=== PATIENT | male | born 1940 | race Caucasian/White ===

== ENCOUNTER → 2022-07-23 13:40 | Outpatient (CLI) | payer MEDICARE, BC, SELFPAY ==
--- NOTE | ~2022-07-23 | XR_ITS ---
XR hip RT min 2V DATE: 07/23/2022 13:55 INDICATION: Right hip pain. No injury. TECHNIQUE: AP and lateral views COMPARISON: None FINDINGS: Severe degenerative disc disease in the lower lumbar and lumbosacral region. Degenerative spurring of the pubic symphysis. The sacroiliac joints are intact. Mild bilateral hip osteoarthritis. No fracture or dislocation, avascular necrosis or bone destruction of the right hip. [employer] devices overlie the base of the penis IMPRESSION: Mild bilateral hip osteoid arthritis Severe degenerative disc disease of the lower lumbar and lumbosacral area Reviewed, dictated and finalized at location A. ENGINEER
== END ==
PROVIDERS: PCP Family Medicine; Visit Provider Family Medicine
DX: C79.51 Secondary malignant neoplasm of bone (principal); C64.9 Malignant neoplasm of unspecified kidney, except renal pelvis; M25.551 Pain in right hip; M16.0 Bilateral primary osteoarthritis of hip; M51.37 Other intervertebral disc degeneration, lumbosacral region
CPT/HCPCS: 73502

== ENCOUNTER 2024-01-05 09:21 | Outpatient (CLI) | payer MEDICARE, BC, SELFPAY ==
--- NOTE | ~2024-01-05 | US_ITS ---
EXAMINATION: US soft tissue groin LT DATE: 01/05/2024 09:43 INDICATION: Left lower quadrant abdominal pain and lump TECHNIQUE: Multiple grayscale and Doppler ultrasound images of the left lower quadrant region of conc alejandra were obtained. COMPARISON: None FINDINGS: Normal appearance to the subcutaneous fat with intact underlying abdominal wall musculature of the re gion of concern. No hernia, abnormal masses or fluid collections identified. IMPRESSION: 1. Normal study. No hernia or other abnormal masses or fluid collections identified at the region of concern. Per notation of the deputy program manager, the patient was unable to identify the pump and the pain quezada d resolved at the time of imaging. Reviewed, dictated and finalized at location B. IMPRESSION: 1. Normal study. No hernia or other abnormal masses or fluid collections identi fied at the region of concern. Per notation of the deputy program manager, the patient was unable to identify the pump and the pain had resolved at the time of imaging.
== END 2024-01-05 09:22 | disposition home or self-care (01) ==
LOC: ANHIMG 09:22
PROVIDERS: PCP Family Medicine; Visit Provider Family Medicine
DX: R10.32 Left lower quadrant pain (principal); R22.2 Localized swelling, mass and lump, trunk
CPT/HCPCS: 76882

== ENCOUNTER 2024-01-14 11:06 | Outpatient (CLI) | payer MEDICARE, BC, SELFPAY ==
--- NOTE | ~2024-01-14 | MMUS_ITS ---
EXAMINATION: MM diagnostic sam BI w neela, US breast BI complete HISTORY: Palpable breast abnormality. TECHNIQUE: Additional 3-D tomosynthesis images of the breasts were performed and synthetic 2-D images were generated. CAD analysis was submitted and interpreted. High resolution complete bilateral breas t ultrasound was performed. COMPARISON: None BREAST PARENCHYMAL COMPOSITION: Dense: The breasts are heterogeneously dense, which may obscure small masses FINDINGS: MAMMOGRAPHIC FINDINGS: There are no suspicious masses, calcifications or clustered calcifications in either breast to sugges t malignancy. There are scattered benign bilateral breast calcifications. There is bilateral symmetri c gynecomastia. ULTRASOUND: Complete bilateral US of all 4 quadrants of the breasts and retroareolar region was reviewed. Normal heterogeneous echotexture without focal solid or cystic mass. IMPRESSION: 1. No evidence for malignancy in either breast. Benign bilateral gynecomastia. 2. Routine yearly screening mammogram and regular clinical breast examination are recommended. BI-RADS Category 1: Negative Reviewed, dictated and finalized at location A. IMPRESSION: 1. No evidence for malignancy in either breast. Benign bilateral gynecomastia. 2. Routine yearly screening mammogram and regular clinical breast examination a re recommended. BI-RADS Category 1: Negative
== END 2024-01-14 11:07 | disposition home or self-care (01) ==
PROVIDERS: PCP Family Medicine; Visit Provider Family Medicine
DX: N62 Hypertrophy of breast (principal)
CPT/HCPCS: 76641; 77062; 77066; G0279

== ENCOUNTER 2024-01-30 09:31 | Outpatient (CLI) | payer MEDICARE, BC, SELFPAY ==
--- NOTE | ~2024-01-30 | US_ITS ---
US abdomen complete EXAMINATION: US Abdomen Complete INDICATION: Ascites PROCEDURE: Realtime High Resolution abdomen ultrasound. COMPARISON: No prior studies for comparison FINDINGS: There are multiple gallbladder polyps measuring up to 3 mm. Gallbladder wall is thickened m easuring 4 mm. Common bile duct measures 3 mm. Liver echotexture is normal without focal mass. There is a nodular liver surface, consistent with cir rhosis. There is ascites. There is hepatofugal flow in the portal vein, consistent with portal hypert ension. There is hepatomegaly.. Pancreas within normal limits. Pancreatic tail is obscured by bowel gas. Spleen is unremarkeable. Kidneys are atrophic with increased echogenicity. There is right era l cyst measuring 2 cm. Visualized aspects of the aorta and IVC are within normal limits. Portal vein is patent. No sonograph ic Villanueva's sign indicated by the technologist. There are small pleural effusions. IMPRESSION: 1: Cirrhosis of the liver with portal hypertension and ascites. 2: Small pleural effusions. Reviewed, dictated and finalized at location B.
== END 2024-01-30 09:32 | disposition home or self-care (01) ==
PROVIDERS: PCP Family Medicine; Visit Provider Family Medicine
DX: R18.8 Other ascites (principal); J90 Pleural effusion, not elsewhere classified
CPT/HCPCS: 76700

== ENCOUNTER 2024-01-30 13:53 | Inpatient (IN) | payer MEDICARE, BC, SELFPAY ==
[2024-01-30] VITALS (15 sets, daily range): BP systolic 87–116; BP diastolic 58–78; PULSE 89–111; RESP 13–28; TEMP 37.1–37.6; O2SAT 92–100; BMI 32.1
--- NOTE | ~2024-01-30 | XR_ITS ---
EXAMINATION: XR chest 1V portable DATE: 02/05/2024 10:43 INDICATION: Worsening shortness of breath and cough 1 day post thoracentesis TECHNIQUE: frontal view of the chest was obtained. COMPARISON: Chest radiograph dated 02/04/2024 FINDINGS: Right lung is clear. Curvilinear skinfold projects over the lateral left mid to lower lung. Less dens e airspace opacity in the left midlung zone and new patchy airspace opacities in the left lower lung zone. Blunting at the left costophrenic angle consistent with likely recurrent small left pleural eff usion. No pneumothorax or right-sided pleural effusion. Cardiomegaly. Tortuous atherosclerotic aorta. IMPRESSION: 1. New opacities in the left lower lung zone consistent with likely recanalization of a small left pl eural effusion with associated atelectasis and/or pneumonia. 2. Improvement in interstitial opacities in the lateral left midlung zone also consistent with atelec tasis or pneumonia. When 3. Cardiomegaly. Reviewed, dictated and finalized at location A. IMPRESSION: 1. New opacities in the left lower lung zone consistent with likely recanalizat ion of a small left pleural effusion with associated atelectasis and/or pneumon ia. 2. Improvement in interstitial opacities in the lateral left midlung zone also consistent with atelectasis or pneumonia. When 3. Cardiomegaly.
--- NOTE | ~2024-01-30 | XR_ITS ---
EXAMINATION: [id number] DATE: 02/04/2024 12:16 INDICATION: Status post left thoracentesis TECHNIQUE: AP and lateral views of the chest were obtained. COMPARISON: Chest radiograph and CT dated 01/30/2024 FINDINGS: Near complete resolution of the prior small left pleural effusion with improved aeration at the left lower lung zone. Blunting at the bilateral posterior sulci but not the costophrenic angles consistent with tiny bilateral pleural effusions. There are persistent airspace opacities along the lateral lef t mid and upper lung zone with appearance on CT favoring pneumonia. Borderline heart size accounting for AP technique. Corner artery calcification is. Moderate thoracic spondylosis. IMPRESSION: 1. Tiny bilateral pleural effusions significantly decrease in the left post thoracentesis with no pne umothorax. 2. Airspace opacities at the lateral left mid to upper lung consistent with left upper lobe pneumonia . Reviewed, dictated and finalized at location A. IMPRESSION: 1. Tiny bilateral pleural effusions significantly decrease in the left post tho racentesis with no pneumothorax. 2. Airspace opacities at the lateral left mid to upper lung consistent with lef t upper lobe pneumonia.
--- NOTE | ~2024-01-30 | XR_ITS ---
XR chest 2V 01/30/2024 14:36 Indication: Shortness of breath and weakness Procedure: 2 view chest Comparison: No prior studies for comparison. Findings: Cardiomegaly with pulmonary edema. Small pleural effusions. Atherosclerosis. No acute osseo us abnormality. Impression: 1: Cardiomegaly with pulmonary edema. Reviewed, dictated and finalized at location B. Impression: 1: Cardiomegaly with pulmonary edema.
--- NOTE | ~2024-01-30 | XR_ITS ---
XR chest 1V portable DATE: 02/06/2024 08:10 INDICATION: Cough, shortness of breath TECHNIQUE: Portable upright AP views on 02/06/2024 at 0805 at 0806 hours COMPARISON: 02/05/2024 portable AP chest FINDINGS: There is increased prominent patchy consolidation of much of the left lung, relatively spar ing the apex. Cardiomegaly. Prominent thoracic aortic calcification. There is pulmonary vascular redistribution suggesting pulmonary venous hypertension. The left costophrenic angle is not well-defined. Small left pleural effusion is not excluded. No evidence of pneumothorax. IMPRESSION: Extensive patchy consolidation of the left lung, relatively sparring only the apex. Pneum onia is suspected Cardiomegaly, pulmonary vascular redistribution consistent with mild congestive heart failure Reviewed, dictated and finalized at location A. IMPRESSION: Extensive patchy consolidation of the left lung, relatively sparrin g only the apex. Pneumonia is suspected Cardiomegaly, pulmonary vascular redistribution consistent with mild congestive heart failure
--- NOTE | ~2024-01-30 | US_ITS ---
EXAMINATION: US paracentesis abd w/image DATE: 02/01/2024 17:13 INDICATION: Ascites. TECHNIQUE: The procedure and its risks and benefits were discussed with the patient. Potential risks discussed included bleeding and infection. The skin was prepped and draped in sterile fashion. 1% lid ocaine was used for local anesthesia. Under ultrasound guidance, a 5 Fr catheter with trochar was adv anced into the ascites in the left lower quadrant. Fluid was aspirated into vacuum bottles. The cole ter was removed, and a dressing was applied. There were no immediate complications. FINDINGS: Ultrasound images demonstrate ascites and the catheter within the fluid. IMPRESSION: 1. Successful ultrasound-guided paracentesis yielding 5000 mL of brown-colored fluid. Reviewed, dictated and finalized at location A.
--- NOTE | ~2024-01-30 | US_ITS ---
EXAMINATION: US thoracentesis DATE: 02/04/2024 12:25 INDICATION: Left pleural effusion TECHNIQUE: The procedure and its risks and benefits were discussed with the patient. Potential risks discussed included bleeding, infection, and pneumothorax. The patient understood the risks and agreed to proceed. The skin was prepped and draped in sterile fashion. 1% lidocaine was used for local anes thesia. Under ultrasound guidance, a 5 Fr catheter with trochar was advanced into the left pleural ef fusion. Fluid was aspirated. The catheter was removed, and a dressing was applied. There were no imme diate complications. FINDINGS: Ultrasound images demonstrate a small left pleural effusion and the catheter within the fluid. IMPRESSION: 1. Successful ultrasound-guided thoracentesis yielding 1000 mL of brownish colored fluid. Reviewed, dictated and finalized at location A. IMPRESSION: 1. Successful ultrasound-guided thoracentesis yielding 1000 mL of brownish col ored fluid.
--- NOTE | ~2024-01-30 | CT_ITS ---
EXAMINATION: CTA chest PE protocol DATE: 01/30/2024 15:47 CDT INDICATION: Pulmonary embolism TECHNIQUE: Computed tomographic angiography (CTA) of the chest was performed with 100 mL Omnipaque-35 0 intravenous contrast. The dose-length product was 880.57 mGy-cm. Maximum intensity projection 3D-re constructions of the aorta and other arteries were constructed by the technologist on a separate work station. Automated exposure control and iterative reconstruction technique were employed. COMPARISON: None. FINDINGS: Study limited for evaluation of the lower lobe and upper lobe segmental and subsegmental pu lmonary arteries due to motion. No large central pulmonary embolism. Pulmonary arteries are enlarged. Small pleural effusions. There is thoracic lymphadenopathy. There is gynecomastia. There is atherosc lerosis of the aorta and coronary arteries. There is ascites. There is cirrhosis of the liver. There is focal consolidation of the left upper lobe, suspicious for pneumonia. IMPRESSION: 1. No large central pulmonary embolism. 2: Focal left upper lobe consolidation, suspicious for pneumonia. 3: Mediastinal lymphadenopathy, likely reactive. 4: Small pleural effusions. 5: Cirrhosis of the liver with ascites. 6: Enlarged pulmonary arteries consistent with pulmonary hypertension. 7: Gynecomastia. Reviewed, dictated and finalized at location B.
--- NOTE | ~2024-01-30 | XR_ITS ---
Portable chest x-ray Comparison: 01/30/2024 Clinical History: Shortness of breath Findings: Moderate left pleural effusion present with left lower lobe atelectasis. There is extensiv e haziness in left upper lobe region, which could reflect pulmonary edema versus pneumonia. Minimal r ight basilar haziness again present. Cardiomediastinal silhouette is stable. Bones and soft tissues are unremarkable. Impression: Moderate left pleural effusion and left lower lobe atelectasis. Worsening pulmonary edema versus pneumonia in the aerated left upper lobe. Stable minimal haziness right lung base, nonspecific. Reviewed, dictated and finalized at location M. Impression: Moderate left pleural effusion and left lower lobe atelectasis. Worsening pulmonary edema versus pneumonia in the aerated left upper lobe. Stable minimal haziness right lung base, nonspecific.
--- NOTE | 2024-01-30 14:01 | ECG_ITS ---
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 Measurements Intervals [place] Rate: 104 P: 0 NV: 0 QRS: -15 QRSD: 154 T: -15 QT: 324 QTc: 428 Interpretive Statements ATRIAL FIBRILLATION WITH RAPID VENTRICULAR RESPONSE INDETERMINATE AXIS RIGHT BUNDLE BRANCH BLOCK [120+ ms QRS DURATION, UPRIGHT V1, 40+ ms S IN I/aVL/V4/V5/V6] ABNORMAL ECG No previous ECG available for comparison Electronically Signed On 01-31-2024 07:44:38 CDT by Joey Ladd M.D.
--- NOTE | 2024-01-30 14:05 | ED.WEAKNESS ---
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 Patient notes that over the last few weeks he has had worsening abdominal distension, fatigue, lower extremity weakness and shortness of breath. He notes that the shortness of breath seemed to worsen over the last week. He does endorse a cough which is intermittently productive of a green colored sputum. He denies any fever chills. He has made it to his dialysis appointments this week, does not notice if his breathing improves after dialysis runs. He had a full complete run yesterday which was uneventful. His primary doctor did see him a couple of weeks ago for his abdominal distention, ordered an outpatient ultrasound. He was unable to get it performed until this morning. He denies fever or chills. Denies experiencing any chest pain over the last few weeks. He believes he has had mild increase in swelling in his lower extremities. No calf pain. No known sick contacts. Related Data Home Medications Medication Instructions Recorded Confirmed aspirin 81 mg tablet,delayed 81 mg PO DAILY 11/26/20 01/30/24 release fluticasone furoate 27.5 1 spray intranasal DAILY PRN 11/26/20 01/30/24 mcg/actuation nasal Congestion spray,suspension glucosamine HCl 1,500 mg tablet 1,500 mg PO DAILY 11/26/20 01/30/24 nitroglycerin 0.4 mg sublingual 0.4 mg sublingual Q5M PRN Chest 11/26/20 01/30/24 tablet Pain olopatadine 0.2 % eye drops 1 drp EACH EYE DAILY PRN itchy eyes 11/26/20 01/30/24 (Pataday Once Daily Relief) apixaban 5 mg tablet 2.5 mg PO BID 01/30/24 01/30/24 metoprolol tartrate 25 mg tablet 12.5 mg PO BID 01/30/24 01/30/24 midodrine 10 mg tablet 10 mg PO TID 01/30/24 01/30/24 sevelamer carbonate 800 mg tablet 1,600 mg PO TIDWM 01/30/24 01/30/24 Allergies Allergy/AdvReac Type Severity Reaction Status Date / Time No Known Allergies Allergy Verified 01/30/24 19:55 Review of Systems Review of Systems: All systems reviewed & are unremarkable except as noted in HPI and below PMFSH Past Medical History Medical History (Updated 01/30/24 @ 20:09 by Haylee Jolley MD) CAD in [place] artery Chronic kidney disease, stage 4 (severe) CKD (chronic kidney disease) stage 3, GFR 30-59 ml/min Controlled diabetes mellitus Dialysis patient ESRD (end stage renal disease) HLD (hyperlipidemia) Hy ht/kd 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 Idiopathic peripheral neuropathy Renal cell carcinoma s/p nephrectomy Retinal detachment Type 2 diabetes mellitus without complication, with long-term current use of insulin Surgical History Surgical History History of left nephrectomy Social History Social History Smoking status: Never smoker Second hand tobacco smoke exposure: No Alcohol intake: never Substance use: never Substance use type: does not use Do You Feel Safe in your Home?: Yes Lack of Transportation: No Lack of Food: Never True Current Housing: I Have Housing Concerned About Future Housing: No Difficulty Paying Gas/Electric Bills: No Difficulty Paying for Meds: No Currently Unemployed: No Education: Decline to Answer Difficulty w/ Childcare or Family Care: No Living arrangements: alone Occupation/Education: retired Gender identity (if verbalized by the patient): Male Sexual Orientation (if Verbalized by the Patient): Straight or Heterosexual Spiritual care concerns: No Exam Narrative: GENERAL: Well-appearing, well-nourished, and in no acute distress. HEAD: Normocephalic, atraumatic. EYES: PERRLA and EOMI. ENT: Nares clear. Mucous membranes moist. NECK: Supple. CHEST: Coarse bilateral breath
[2024-01-30 14:15] LABS: Basophils Percent Auto 0.3 % (0.2-1.2); Hematocrit 38.1 % (42.0-52.0); Hemoglobin 12.7 g/dL (14.0-18.0); Immature Granulocyte Absolute 0.03 K/mm3 (0.00-0.031); Immature Granulocyte Percent A 0.4 % (0-0.5); Lymphocytes Absolute Auto 0.57 K/mm3 (0.9-3.2); Lymphocytes Percent Auto 7.4 % (18.3-44.2); Mean Corpuscular HGB Conc 33.3 g/dl (32-36); Mean Corpuscular Hemoglobin 35.4 pg (26-34); Mean Corpuscular Volume 106.1 fl (80-100); Mean Platelet Volume 9.2 fl (7.4-10.4); Monocytes Absolute Auto 1.3 K/mm3 (0.1-0.6); Monocytes Percent Auto 16.6 % (2.6-8.5); Neutrophils Absolute Auto 5.8 K/mm3 (1.3-6.7); Neutrophils Percent Auto 75.3 % (45.5-73.1); Platelet Count Result 158 k/mm3 (150-375); Red Blood Count 3.59 M/mm3 (4.6-6.20); Red Cell Distribution Width 15.7 % (11.5-14.5); White Blood Count 7.7 K/mm3 (4.5-10.0)
[2024-01-30 14:29] LABS: Alanine Aminotransferase 16 U/L (6-50); Albumin Level 4.4 g/dL (3.5-5.1); Alkaline Phosphatase 349 U/L (38-126); Anion Gap 10 mmol/L (4-12); Aspartate Amino Transferase 26 U/L (17-59); Blood Urea Nitrogen 34 mg/dL (9-20); Calcium 9.3 mg/dL (8.4-10.2); Carbon Dioxide 35 mmol/L (22-30); Chloride 93 mmol/L (98-107); Estimated CRCL calculation 12 ml/min; Estimated Glomerular Filt Rate 9; Glucose 135 mg/dL (65-110); Potassium 4.1 mmol/L (3.4-5.0); Sodium 138 mmol/L (137-145)
[2024-01-30 14:32] LABS: Macrocytosis 1+ (NORMAL); Platelet Estimate Adequate (Adequate); Schistocytes None Seen
[2024-01-30 14:33] LABS: Anisocytosis 1+
[2024-01-30 15:11] LABS: Influenza A QL RT-PCR Negative (Negative); Influenza B QL RT-PCR Negative (Negative); RSV RNA, RT-PCR Negative (Negative); SARS-CoV-2 RNA PCR Negative (Negative)
[2024-01-30 15:15] LABS: Lipase 243 U/L (23-300)
[2024-01-30] MEDS: FUROSEMIDE INJ 40 MG/4 ML VIAL IV PUSH (15:21)
--- NOTE | 2024-01-30 17:06 | PC.NURSE ---
Phlebotomy called to obtain second set of blood cultures and lab work.
[2024-01-30] MEDS: CEFEPIME 2 GM/NS 50 ML 2 GM/50 ML BAG IVPB (17:29)
[2024-01-30 17:38] LABS: Lactic Acid Reflex 2.1 mmol/L (0.7-2.0)
[2024-01-30] MEDS: AZITHROMYCIN 500 MG/NS 250 ML 500 MG/250 ML BAG 250 MG IVPB (17:51)
[2024-01-30 18:15] LABS: MRSA (PCR) NOT DETECTED (NOT DETECTE)
--- NOTE | 2024-01-30 18:23 | PM.IMHP ---
H&P: HPI History of Present Illness Date/Time: 01/30/24 18:23 Chief Complaint: SOB, Weakness, Fall Narrative: 83 y/o M presents here with shortness of breath, generalized weakness, and ground-level fall with PMH of renal cell carcinoma (s/p left nephrectomy), AFib, CAD, ESRD on HD (MWF), and HLD. The patient presents here for further evaluation of shortness of breath, generalized weakness, fatigue, and worsening abdominal distension over the past 6 months. However, the shortness of breath has significantly worsened over the last week and accompanied by a intermittently productive cough yielding green sputum. No associated fever chills, body aches. He reports the abdominal distention started over the winter and has been slowly progressing. Now accompanied by early satiety. Patient has history of ESRD and is on hemodialysis, appointments on Thursday, Thursday, and Thursday. Reports no missed treatment, last treatment yesterday (01/28). Shortness of breath not relieved with dialysis. Currently denying chest pain, nausea, vomiting, diarrhea, diaphoresis, syncope, or presyncope sensation. Emergency department he was tachycardic and tachypneic without hypoxia. Has known AFib, EKG confirmed same. Initial VS at presentation: 98.8? F, 818, RR 25, 116/73, and 100% on RA. ED workup showed: No leukocytosis, hemoglobin 12.7, creatinine 6.0 and GFR 9, 25, lactic 2.1, total bilirubin 3.0, AST/ALT WNL, initial troponin 1.040, and viral PCR negative. EKG showed AFib with RVR, rate 104, right branch block. Cardiomegaly with pulmonary edema. Abdominal ultrasound showed cirrhosis of the liver with portal hypertension disease and small pleural effusions. Chest CTA showed multiple findings, most notably a focal left upper lobe palatine suspicious for pneumonia. Review of Systems Review of Systems: All systems reviewed & are unremarkable except as noted in HPI and below FOR[facility]LY [facility] Past Medical History Medical History (Updated 01/30/24 @ 20:42 by Mia Izaguirre, VANE) CAD in [place] artery Chronic kidney disease, stage 4 (severe) CKD (chronic kidney disease) stage 3, GFR 30-59 ml/min Dialysis patient ESRD (end stage renal disease) HLD (hyperlipidemia) Hy ht/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t use Do You Feel Safe in your Home?: Yes Lack of Transportation: No Lack of Food: Never True Current Housing: I Have Housing Concerned About Future Housing: No Difficulty Paying Gas/Electric Bills: No Difficulty Paying for Meds: No Currently Unemployed: No Education: Decline to Answer Difficulty w/ Childcare or Family Care: No Living arrangements: alone Occupation/Education: retired Gender identity (if verbalized by the patient): Male Sexual Orientation (if Verbalized by the Patient): Straight or Heterosexual Spiritual care concerns: No Meds Home Medications and Allergies Home Medications Medication Instructions Recorded Confirmed Type aspirin 81 mg tablet,delayed 81 mg PO DAILY 11/26/20 01/30/24 History release fluticasone furoate 27.5 1 spray intranasal DAILY PRN 11/26/20 01/30/24 History mcg/actuation nasal Congestion spray,suspension glucosamine HCl 1,500 mg tablet 1,500 mg PO DAILY 11/26/20 01/30/24 History nitroglycerin 0.4 mg sublingual 0.4 mg sublingual Q5M PRN Chest 11/26/20 01/30/24 History tablet Pain olopatadine 0.2 % eye drops 1 drp EACH EYE DAILY PRN itchy eyes 11/26/20 01/30/24 History (Pataday Once Daily Relief) atorvastatin 20 mg tablet 20 mg PO DAILY #90 tabs 0
[2024-01-30] MEDS: ALBUMIN HUMAN 25% 25 GM/100 ML 100 ML IVPB (18:31)
[2024-01-30 19:08] LABS: Glucose Point of Care 105 mg/dl (65-105)
[2024-01-30 20:26] LABS: Reflex Lactic Acid Yes or No Add Lactic
[2024-01-30] MEDS: VANCOMYCIN 2,000 MG/NS 500 ML 2,000 MG/500 ML BAG 250 MG IVPB (21:10)
[2024-01-30 21:13] LABS: Procalcitonin 0.6 ng/mL
[2024-01-30 21:24] LABS: Hepatitis B Surface Antigen Negative (Negative)
[2024-01-30] MEDS: MIDODRINE HCL 10 MG TABLET PO (21:26)
[2024-01-30] MEDS: APIXABAN 2.5 MG TABLET PO (21:26)
[2024-01-30] MEDS: METOPROLOL TARTRATE 12.5 MG TABLET PO (21:27)
[2024-01-30 21:29] LABS: HAV RESULT Negative (Negative); Hepatitis B Core IgM Result Negative (Negative)
--- NOTE | 2024-01-30 21:34 | ECG_ITS ---
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 Measurements Intervals [place] Rate: 93 P: 0 AL: 0 QRS: -10 QRSD: 167 T: -1 QT: 423 QTc: 526 Interpretive Statements ATRIAL FIBRILLATION RIGHT BUNDLE BRANCH BLOCK [120+ ms QRS DURATION, UPRIGHT V1, 40+ ms S IN I/aVL/V4/V5/V6] ABNORMAL ECG WARNING: DATA QUALITY MAY AFFECT INTERPRETATION Compared to ECG 01/30/2024 14:03:51 NO SIGNIFICANT CHANGE Electronically Signed On 01-31-2024 07:50:16 CDT by Joey Ladd M.D.
[2024-01-30 21:41] LABS: Hepatitis C Virus Antibody Negative (Negative)
--- NOTE | 2024-01-30 21:46 | ADMGEN ---
This patient, Russ Jimenez, was admitted to IMU Room 202-01 at 1847. Patient/family oriented to hospital policies and general routines including ID bracelet, bed and alarms, visiting hours, pain management, procedures, bathroom and other care routines, personal items, smoking policy, room service/diet, and visiting hours. Information on how to activate the Rapid Response Team has been discussed. Patient/Family are encouraged to report perceived risks to care and to ask questions if they do not understand what they are told or what they should do.
[2024-01-30] MEDS: LACTATED RINGERS 500 ML 75 ML IV CONT (23:40)
[2024-01-31] VITALS (35 sets, daily range): BP systolic 90–114; BP diastolic 58–71; PULSE 70–100; RESP 16–26; TEMP 0–37.4; O2SAT 94–100
[2024-01-31 05:06] LABS: Basophils Percent Auto 0.4 % (0.2-1.2); Hematocrit 36.6 % (42.0-52.0); Immature Granulocyte Absolute 0.03 K/mm3 (0.00-0.031); Immature Granulocyte Percent A 0.4 % (0-0.5); Lymphocytes Absolute Auto 0.59 K/mm3 (0.9-3.2); Lymphocytes Percent Auto 7.1 % (18.3-44.2); Mean Corpuscular HGB Conc 32.8 g/dl (32-36); Mean Corpuscular Hemoglobin 34.6 pg (26-34); Mean Corpuscular Volume 105.5 fl (80-100); Mean Platelet Volume 9.9 fl (7.4-10.4); Monocytes Absolute Auto 1.7 K/mm3 (0.1-0.6); Monocytes Percent Auto 19.9 % (2.6-8.5); Neutrophils Percent Auto 72.2 % (45.5-73.1); Platelet Count Result 151 k/mm3 (150-375); Red Blood Count 3.47 M/mm3 (4.6-6.20); Red Cell Distribution Width 15.7 % (11.5-14.5); White Blood Count 8.3 K/mm3 (4.5-10.0)
[2024-01-31 05:17] LABS: Cholesterol 72 mg/dL (0-200); HDL Direct 28 mg/dL; Triglycerides 67 mg/dL (<150)
[2024-01-31 05:18] LABS: Magnesium 2.4 mg/dL (1.6-2.3); Phosphorus 4.7 mg/dL (2.5-4.5)
[2024-01-31 05:20] LABS: Alanine Aminotransferase 16 U/L (6-50); Alkaline Phosphatase 295 U/L (38-126); Anion Gap 10 mmol/L (4-12); Aspartate Amino Transferase 32 U/L (17-59); Bilirubin,Total 2.9 mg/dL (0.2-1.3); Blood Urea Nitrogen 38 mg/dL (9-20); Calcium 9.1 mg/dL (8.4-10.2); Carbon Dioxide 33 mmol/L (22-30); Chloride 94 mmol/L (98-107); Estimated CRCL calculation 10 ml/min; Estimated Glomerular Filt Rate 8; Glucose 114 mg/dL (65-110); Potassium 4.5 mmol/L (3.4-5.0); Sodium 137 mmol/L (137-145)
[2024-01-31 05:28] LABS: LDL Cholesterol Direct 42 mg/dL
[2024-01-31 05:44] LABS: Platelet Estimate Adequate (Adequate)
[2024-01-31 05:45] LABS: Anisocytosis 1+; Hypochromasia 1+; Ovalocytes 1+
[2024-01-31 05:46] LABS: Schistocytes None Seen
[2024-01-31 05:55] LABS: Hepatitis B Surface Antigen Negative (Negative)
[2024-01-31 06:13] LABS: Hepatitis B Surface Anti Res Negative
--- NOTE | 2024-01-31 08:15 | PM.CNCAR ---
Assessment and Plan Assessment and plan (1) Elevated troponin: Code(s): R79.89 - Other specified abnormal findings of blood chemistry Status: Acute Plan This is an 83-year-old man known to have coronary disease also known to have end-stage renal disease on hemodialysis. He presents to the hospital with some dyspnea some evidence of congestion in his chest x-ray. His physical exam to me is consistent with chronic lung disease with poor air movement however he says he is not known to have any lung pathology. I am seeing him because of an elevation in his troponin which is the result of his renal failure, not in acute coronary syndrome. This troponin elevation does not merit for cardiac investigation. It appears he needs more volume removed with dialysis because of his dyspnea and appearance of his chest x-ray Joey Ladd MD [facility] History of Present Illness History of Present Illness Consult date/time: 01/31/24 08:15 Reason For Visit: Elevated troponin, Pneumonia, Ascites Narrative: This is a 83-year-old man I am seeing at the request of the hospitalist because of elevated troponin level. He is unknown to me prior to this encounter but he is known to and followed by my partner, Dr. Chow. This gentleman has a history of coronary artery disease, history of myocardial infarction back in 2010 which was treated with emergency coronary stenting elsewhere. He also has a history of chronic atrial fibrillation which is rate controlled and anticoagulated. He came to the hospital yesterday because of shortness of breath which he says has been gradually increasing over the last several weeks or so. He is not noticing any orthopnea PND or accumulating edema. His evaluation in the emergency room showed some pulmonary congestion by x-ray as well as an elevation of troponin. The patient does have end-stage renal disease and is dependent on hemodialysis on a Thursday schedule. I have been consulted to see him because of elevated troponin. He is not having any chest pain, his ECG does not show any signs of acute injury/infarction and his troponin levels are essentially flat not consistent with acute myocardial injury. Review of Systems Constitutional: Constitutional: Reports fatigue Eyes: Eyes: Reports no additional eye complaints ENT: Reports system reviewed and no additional complaints, except as documented Cardiovascular: Cardiovascular: Reports no additional cardiovascular complaints Respiratory: Respiratory: Reports dyspnea on exertion Gastrointestinal: Gastrointestinal: Reports no additional gastrointestinal complaints Musculoskeletal: Musculoskeletal: Reports no additional musculoskeletal complaints Integumentary/Breasts: Skin/Breast: Reports system reviewed and no additional complaints, except as docu Neurologic: Reports system reviewed and no additional complaints, except as documented Endocrine: Endocrine: Reports no additional endocrine complaints Hematologic/Lymphatic: Hematologic/Lymphatic: Reports no additional hematologic/lymphatic complaints Allergic/Immunologic: Allergic/Immunologic: Reports no additional allergic/immunologic complaints PMFSH Past Medical History Medical History (Updated 01/30/24 @ 20:42 by Mia Izaguirre APRN) CAD in [place] artery Chronic kidney disease, stage 4 (severe) CKD (chronic kidney disease) stage 3, GFR 30-59 ml/min Dialysis patient ESRD (end stage renal disease) HLD (hyperlipidemia) Hy ht/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
--- NOTE | 2024-01-31 08:20 | PM.IMPN ---
Progress Note: A&P Assessment and Plan (1) Sepsis: Qualifiers: Sepsis acute organ dysfunction status: without acute organ dysfunction Sepsis type: sepsis due to unspecified organism Qualified Code(s): A41.9 - Sepsis, unspecified organism Code(s): A41.9 - Sepsis, unspecified organism Status: Acute (2) Pneumonia: Qualifiers: Laterality: unspecified laterality Lung location: unspecified part of lung Pneumonia type: due to unspecified organism Qualified Code(s): J18.9 - Pneumonia, unspecified organism Code(s): J18.9 - Pneumonia, unspecified organism Status: Acute (3) Elevated troponin: Code(s): R79.89 - Other specified abnormal findings of blood chemistry Status: Acute (4) Cirrhosis: Qualifiers: Ascites presence: with ascites Hepatic cirrhosis type: unspecified hepatic cirrhosis Qualified Code(s): K74.60 - Unspecified cirrhosis of liver; R18.8 - Other ascites Code(s): K74.60 - Unspecified cirrhosis of liver Status: Acute (5) ESRD (end stage renal disease): Code(s): N18.6 - End stage renal disease Status: Acute Plan 83-year-old male presented with shortness of breath weakness and fall. Triage vitals with heart rate of 108 respiratory rate of 22 otherwise normal limit. appear to be in [id number] respiratory distress with significant tachypnea on arrival to the ED. otherwise no hypoxia noted. To Coumadin abdomen with recent ultrasound showing liver cirrhosis with portal hypertension and ascites. Laboratory workup revealed no leukocytosis hemoglobin normal at 12.7 normal AST ALT chest x-ray shows cardiomegaly with pulmonary edema. Troponin was elevated 1.040. No chest pain. On chronic anticoagulation with Eliquis 5 mg b.i.d. CTA showed no large central PE focal left upper lobe consolidation suspicious for pneumonia. Mediastinal lymphadenopathy likely reactive. She does show liver with ascites. Large pulmonary arteries consistent with pulmonary hypertension. influenza RSV and COVID negative. Lipase negative lactate was mildly elevated 2.1. He met SIRS criteria representing sepsis Sepsis follow blood culture. On vancomycin cefepime and azithromycin . vancomycin will be discontinued. MRSA PCR not detected. Left upper lobe consolidation/pneumonia procalcitonin 0.6 elevated troponin cardiology consulted history and troponin 1.040-1.220-1.660 Cirrhosis of liver with ascites Paracentesis ordered no history of alcohol use. 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 Feeling better. He is going for dialysis today. Abdominal tap is planned as well. No chest pain. Review of Systems Review of Systems: All systems reviewed & are unremarkable except as noted in HPI and below Exam Narrative: GENERAL: Well-appearing, well-nourished, and in no acute distress. HEAD: Normocephalic, atraumatic. EYES: PERRLA and EOMI. ENT: Nares clear. Mucous membranes moist. NECK: Supple. CHEST: Coarse bilateral breath sounds, no respiratory distress HEART: Regular rate and rhythm. Normal peripheral pulses. ABDOMEN: Soft, protuberant abdomen, non tender. EXTREMITIES: Normal range of motion. Trace bilateral lower extremity edema, no calf tenderness SKIN: Warm, dry, no rash. NEURO: No focal deficits. Alert and oriented x3. PSYCH: Normal mood and affect. Objective Data Vital Signs Vital Signs: Vital Signs - 24 hr 01/30/24
[2024-01-31] MEDS: allopurinoL 150 MG TABLET PO (08:45)
[2024-01-31] MEDS: METOPROLOL TARTRATE 12.5 MG TABLET PO ×2 (08:45→20:41)
[2024-01-31] MEDS: ATORVASTATIN 20 MG TABLET PO (08:45)
[2024-01-31] MEDS: SEVELAMER CARBONATE 800 MG TABLET 1600 MG PO ×2 (08:45→17:42)
[2024-01-31] MEDS: GABAPENTIN 300 MG CAPSULE PO (08:45)
[2024-01-31] MEDS: ASPIRIN 81 MG ENTERIC TABLET PO (08:46)
[2024-01-31] MEDS: APIXABAN 2.5 MG TABLET PO ×2 (08:46→20:41)
[2024-01-31] MEDS: MIDODRINE HCL 10 MG TABLET PO ×3 (08:47→17:44)
[2024-01-31] MEDS: ALBUMIN HUMAN 25% 12.5 GM/50ML 150 ML 50 GM (12:25)
--- NOTE | 2024-01-31 13:40 | P.CONNP_ITS ---
Assessment and Plan Assessment and plan (1) ESRD (end stage renal disease): Code(s): N18.6 - End stage renal disease Status: Chronic Assessment and Plan: * last HD treatment was on Thursday * plan next HD treatment tomorrow * continue dialysis schedule of Thu/Thu/Thursday while hospitalized * follow electrolytes, volume status, and clearance * plan DUF treatment today for further fluid removal (2) Shortness of breath: Code(s): R06.02 - Shortness of breath Status: Acute Assessment and Plan: * presumably due to pulmonary edema + pneumonia * DUF today for further fluid removal * IV antibiotics initiated * no evidence of hypoxia * imaging to date (CT of chest and CXR) noted * follow respiratory status (3) Pneumonia: Qualifiers: Laterality: unspecified laterality Lung location: unspecified part of lung Pneumonia type: due to unspecified organism Qualified Code(s): J18.9 - Pneumonia, unspecified organism Code(s): J18.9 - Pneumonia, unspecified organism Status: Acute Assessment and Plan: * as noted by CT of chest * COVID/RSV/influenza studies negative * on IV antibiotic therapy * sputum culture if able * follow culture data (4) Elevated troponin: Code(s): R79.89 - Other specified abnormal findings of blood chemistry Status: Acute Assessment and Plan: * as noted * Cardiology recommendations noted * already on anticoagulation (5) Cirrhosis: Qualifiers: Ascites presence: with ascites Hepatic cirrhosis type: unspecified hepatic cirrhosis Qualified Code(s): K74.60 - Unspecified cirrhosis of liver; R18.8 - Other ascites Code(s): K74.60 - Unspecified cirrhosis of liver Status: Acute Assessment and Plan: * fairly new finding * nored outpatient abdominal ultrasound (on 01/29): * 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 * plan diagnostic and therapeutic paracentesis * continue supportive therapy (6) Hypotension: Code(s): I95.9 - Hypotension, unspecified Status: Acute Assessment and Plan: * chronic issue * on midodrine therapy as an outpatient * possibly related to liver cirrhosis (?) I will continue follow the patient with you while he remains hospitalized make further recommendations as deemed necessary. Thank you for allowing me to participate in the care of this patient. History of Present Illness Reason for Consult Consult date: 01/31/24 Reason for consult: end stage renal disease Chief Complaint Chief complaint: Elevated troponin, Pneumonia, Ascites History of Present Illness Narrative: The patient is an 83-year-old male with a past medical history as outlined below who presented to [facility] Emergency room with complaints of ongoing shortness of breath. The patient states that his shortness of breath seems to have worsened over the last week and is associated with generalized weakness, fatigue, and worsening abdominal distension. He did recently see his primary care physician for the issue related to his abdominal is tension and he had an outpatient abdominal u ltrasound which confirmed the presence of ascites and liver cirrhosis which is new. He seems to think that all of his symptoms seemed to begin over the winter and have progressively got worse but seem more so in the last week. It does not seem that his shortness of breath really improved all that much whenever he receives a dialysis treatment. However, given these symptoms and the
--- NOTE | 2024-01-31 13:40 | PM.CNNEP ---
Assessment and Plan Assessment and plan (1) ESRD (end stage renal disease): Code(s): N18.6 - End stage renal disease Status: Chronic Assessment and Plan: last HD treatment was on Thursday plan next HD treatment tomorrow continue dialysis schedule of Thu/Thu/Thursday while hospitalized follow electrolytes, volume status, and clearance plan DUF treatment today for further fluid removal (2) Shortness of breath: Code(s): R06.02 - Shortness of breath Status: Acute Assessment and Plan: presumably due to pulmonary edema + pneumonia DUF today for further fluid removal IV antibiotics initiated no evidence of hypoxia imaging to date (CT of chest and CXR) noted follow respiratory status (3) Pneumonia: Qualifiers: Laterality: unspecified laterality Lung location: unspecified part of lung Pneumonia type: due to unspecified organism Qualified Code(s): J18.9 - Pneumonia, unspecified organism Code(s): J18.9 - Pneumonia, unspecified organism Status: Acute Assessment and Plan: as noted by CT of chest COVID/RSV/influenza studies negative on IV antibiotic therapy sputum culture if able follow culture data (4) Elevated troponin: Code(s): R79.89 - Other specified abnormal findings of blood chemistry Status: Acute Assessment and Plan: as noted Cardiology recommendations noted already on anticoagulation (5) Cirrhosis: Qualifiers: Ascites presence: with ascites Hepatic cirrhosis type: unspecified hepatic cirrhosis Qualified Code(s): K74.60 - Unspecified cirrhosis of liver; R18.8 - Other ascites Code(s): K74.60 - Unspecified cirrhosis of liver Status: Acute Assessment and Plan: fairly new finding nored outpatient abdominal ultrasound (on 01/29): 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 plan diagnostic and therapeutic paracentesis continue supportive therapy (6) Hypotension: Code(s): I95.9 - Hypotension, unspecified Status: Acute Assessment and Plan: chronic issue on midodrine therapy as an outpatient possibly related to liver cirrhosis (?) I will continue follow the patient with you while he remains hospitalized make further recommendations as deemed necessary. Thank you for allowing me to participate in the care of this patient. History of Present Illness Reason for Consult Consult date: 01/31/24 Reason for consult: end stage renal disease Chief Complaint Chief complaint: Elevated troponin, Pneumonia, Ascites History of Present Illness Narrative: The patient is an 83-year-old male with a past medical history as outlined below who presented to [facility] Emergency room with complaints of ongoing shortness of breath. The patient states that his shortness of breath seems to have worsened over the last week and is associated with generalized weakness, fatigue, and worsening abdominal distension. He did recently see his primary care physician for the issue related to his abdominal is tension and he had an outpatient abdominal ultrasound which confirmed the presence of ascites and liver cirrhosis which is new. He seems to think that all of his symptoms seemed to begin over the winter and have progressively got worse but seem more so in the last week. It does not seem that his shortness of breath really improved all that much whenever he receives a dialysis treatment. However, given these symptoms and the progressive nature of them, he came to the emergency room for further assessment. Workup and evaluation in the emergency room demonstrated the patient to be hemodynamically stable although he was slightly tachycardic. His oxygen saturations were 100% on room air. EKG demonstrated known atrial fibrillation. he did seem mildly tachypneic on presentation as well. Routine blood work demonstrated a normal whit
--- NOTE | 2024-01-31 17:19 | ECG_ITS ---
Test Date: 2024-01-31 17:19:12 Measurements Intervals [place] Rate: 65 P: 44 MS: 149 QRS: 24 QRSD: 109 T: 111 QT: 438 QTc: 458 Interpretive Statements SINUS RHYTHM INFERIOR MYOCARDIAL INFARCTION [40+ ms Q WAVE AND/OR ST/T ABNORMALITY IN II/aVF], PROBABLY OLD MODERATE T-WAVE ABNORMALITY, CONSIDER ANTERIOR ISCHEMIA [-0.1+ mV T WAVE IN V3/V4] INTERPRETATION BASED ON A DEFAULT AGE OF 40 YEARS Compared to ECG 01/30/2024 21:43:33 Right bundle-branch block no longer present Electronically Signed On 02-04-2024 12:31:12 CDT by Cole Ascencio M.D.
[2024-01-31] MEDS: CEFEPIME 1 GM/NS 50 ML 1 GM/50 ML BAG IVPB (17:43)
[2024-01-31] MEDS: AZITHROMYCIN 500 MG/NS 250 ML 500 MG/250 ML BAG 250 MG IVPB (18:34)
[2024-02-01] VITALS (31 sets, daily range): BP systolic 84–108; BP diastolic 55–74; PULSE 78–100; RESP 14–24; TEMP 36.6–37.6; O2SAT 91–100
[2024-02-01 04:45] LABS: Basophils Percent Auto 0.5 % (0.2-1.2); Hematocrit 34.1 % (42.0-52.0); Hemoglobin 11.4 g/dL (14.0-18.0); Immature Granulocyte Absolute 0.04 K/mm3 (0.00-0.031); Immature Granulocyte Percent A 0.5 % (0-0.5); Lymphocytes Absolute Auto 0.51 K/mm3 (0.9-3.2); Lymphocytes Percent Auto 5.8 % (18.3-44.2); Mean Corpuscular HGB Conc 33.4 g/dl (32-36); Mean Corpuscular Hemoglobin 35.2 pg (26-34); Mean Corpuscular Volume 105.2 fl (80-100); Mean Platelet Volume 9.5 fl (7.4-10.4); Monocytes Absolute Auto 1.6 K/mm3 (0.1-0.6); Monocytes Percent Auto 18.4 % (2.6-8.5); Neutrophils Absolute Auto 6.6 K/mm3 (1.3-6.7); Neutrophils Percent Auto 74.8 % (45.5-73.1); Platelet Count Result 153 k/mm3 (150-375); Red Blood Count 3.24 M/mm3 (4.6-6.20); Red Cell Distribution Width 15.3 % (11.5-14.5); White Blood Count 8.8 K/mm3 (4.5-10.0)
[2024-02-01 05:18] LABS: Chloride 93 mmol/L (98-107)
[2024-02-01 05:19] LABS: Alanine Aminotransferase 16 U/L (6-50); Albumin Level 3.8 g/dL (3.5-5.1); Alkaline Phosphatase 240 U/L (38-126); Anion Gap 12 mmol/L (4-12); Aspartate Amino Transferase 31 U/L (17-59); Bilirubin,Total 2.5 mg/dL (0.2-1.3); Blood Urea Nitrogen 52 mg/dL (9-20); Carbon Dioxide 30 mmol/L (22-30); Estimated CRCL calculation 8 ml/min; Estimated Glomerular Filt Rate 6; Glucose 106 mg/dL (65-110); Magnesium 2.4 mg/dL (1.6-2.3); Potassium 4.8 mmol/L (3.4-5.0); Sodium 135 mmol/L (137-145)
[2024-02-01] MEDS: ALBUMIN HUMAN 25% 12.5 GM/50ML 100 ML 999 GM (08:46)
[2024-02-01] MEDS: HEPARIN SODIUM 1,000 UNITS/ML VIAL 5000 UNITS (08:46)
[2024-02-01] MEDS: SODIUM CHLORIDE 0.9% IV 1,000 ML 999 ML IV CONT ×2 (08:48→08:52)
[2024-02-01] MEDS: MIDODRINE HCL 10 MG TABLET PO ×3 (09:12→19:37)
[2024-02-01] MEDS: ALBUMIN HUMAN 25% 12.5 GM/50ML 50 ML 999 GM (10:00)
--- NOTE | 2024-02-01 10:11 | PM.PNNEP ---
Progress Note: A&P Assessment and Plan (1) ESRD (end stage renal disease): Code(s): N18.6 - End stage renal disease Status: Chronic Assessment and Plan: lHD today continue dialysis schedule of Thu/Thu/Thursday while hospitalized follow electrolytes, volume status, and clearance s/p DUF treatment on 12/30 for further fluid removal (2) Shortness of breath: Code(s): R06.02 - Shortness of breath Status: Acute Assessment and Plan: presumably due to pulmonary edema + pneumonia + ascites s/p DUF on 01/30 for further fluid removal IV antibiotics no evidence of hypoxia imaging to date (CT of chest and CXR) noted follow respiratory status (3) Pneumonia: Qualifiers: Laterality: unspecified laterality Lung location: unspecified part of lung Pneumonia type: due to unspecified organism Qualified Code(s): J18.9 - Pneumonia, unspecified organism Code(s): J18.9 - Pneumonia, unspecified organism Status: Acute Assessment and Plan: as noted by CT of chest COVID/RSV/influenza studies negative on IV antibiotic therapy sputum culture if able follow culture data (4) Elevated troponin: Code(s): R79.89 - Other specified abnormal findings of blood chemistry Status: Acute Assessment and Plan: as noted Cardiology recommendations noted already on anticoagulation (5) Cirrhosis: Qualifiers: Ascites presence: with ascites Hepatic cirrhosis type: unspecified hepatic cirrhosis Qualified Code(s): K74.60 - Unspecified cirrhosis of liver; R18.8 - Other ascites Code(s): K74.60 - Unspecified cirrhosis of liver Status: Acute Assessment and Plan: fairly new finding [facility] outpatient abdominal ultrasound (on 01/29): 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 plan diagnostic and therapeutic paracentesis today continue supportive therapy (6) Hypotension: Code(s): I95.9 - Hypotension, unspecified Status: Acute Assessment and Plan: chronic issue on midodrine therapy as an outpatient possibly related to liver cirrhosis (?) Will continue to follow. Subjective Date/time seen: 02/01/24 10:11 Interval history: Follow-up for end stage renal disease on hemodialysis. Tolerated dry ultrafiltration session yesterday with ~ 3L fluid removal; tolerating dialysis treatment at the time of my visit (seen on HD at 10:00AM) but fluid removal has been challenging due relative hypotension despite midodrine and IV albumin support; paracentesis scheduled for later today; breathing seems better in general. Exam Narrative: General: elderly but WD/WN male in NAD Heart: normal S1 and S2; no rub Lungs: coarse and decreased at bases Abdomen: soft, ++ distension; positive bowel sounds Extremities: no cyanosis or clubbing; trace edema Skin: warm and dry Objective Data Vital Signs Vital Signs: Vital Signs Temp Pulse Resp BP Pulse Ox O2 Del Method O2 Flow Rate 02/01/24 10:00 91 101/69 02/01/24 09:45 91 93/64 L 02/01/24 09:30 100 98/70 L 02/01/24 09:15 94 100/68 02/01/24 09:00 90 107/69 02/01/24 08:45 99 99/74 L 02/01/24 08:30 92 105/72 02/01/24 08:22 92 103/70 02/01/24 07:58 99.6 F 92 18 91/67 L 98 02/01/24 07:58 2 02/01/24 07:32 99.6 F 89 24 H 90/64 L 100 01/31/24 21:50 94 Nasal Cannula 2 02/01/24 05:43 94 02/01/24 04:00 98.4 F 86 18 98/60 L 97 02/01/24 04:00 88 18 97 Nasal Cannula 2 02/01/24 04:00 88 02/01/24 02:00 95 02/01/24 00:00 91 18 97 Nasal Cannula 2 02/01/24 00:00 91 01/31/24 23:23 98.4 F 90 18 100/63 97 01/31/24 22:00 88 01/31/24 20:00 99 18 97 Nasal Cannula 2 01/31/24 20:00 99 01/31/24 20:41 74 01/31/24 20:25 98.4 F 91 18 96/6
--- NOTE | 2024-02-01 10:11 | P.PNNP_ITS ---
Progress Note: A&P Assessment and Plan (1) ESRD (end stage renal disease): Code(s): N18.6 - End stage renal disease Status: Chronic Assessment and Plan: * lHD today * continue dialysis schedule of Thu/Thu/Thursday while hospitalized * follow electrolytes, volume status, and clearance * s/p DUF treatment on 12/30 for further fluid removal (2) Shortness of breath: Code(s): R06.02 - Shortness of breath Status: Acute Assessment and Plan: * presumably due to pulmonary edema + pneumonia + ascites * s/p DUF on 01/30 for further fluid removal * IV antibiotics * no evidence of hypoxia * imaging to date (CT of chest and CXR) noted * follow respiratory status (3) Pneumonia: Qualifiers: Laterality: unspecified laterality Lung location: unspecified part of lung Pneumonia type: due to unspecified organism Qualified Code(s): J18.9 - Pneumonia, unspecified organism Code(s): J18.9 - Pneumonia, unspecified organism Status: Acute Assessment and Plan: * as noted by CT of chest * COVID/RSV/influenza studies negative * on IV antibiotic therapy * sputum culture if able * follow culture data (4) Elevated troponin: Code(s): R79.89 - Other specified abnormal findings of blood chemistry Status: Acute Assessment and Plan: * as noted * Cardiology recommendations noted * already on anticoagulation (5) Cirrhosis: Qualifiers: Ascites presence: with ascites Hepatic cirrhosis type: unspecified hepatic cirrhosis Qualified Code(s): K74.60 - Unspecified cirrhosis of liver; R18.8 - Other ascites Code(s): K74.60 - Unspecified cirrhosis of liver Status: Acute Assessment and Plan: * fairly new finding * nored outpatient abdominal ultrasound (on 01/29): * 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 * plan diagnostic and therapeutic paracentesis today * continue supportive therapy (6) Hypotension: Code(s): I95.9 - Hypotension, unspecified Status: Acute Assessment and Plan: * chronic issue * on midodrine therapy as an outpatient * possibly related to liver cirrhosis (?) Will continue to follow. Subjective Date/time seen: 02/01/24 10:11 Interval history: Follow-up for end stage renal disease on hemodialysis. Tolerated dry ultrafiltration session yesterday with ~ 3L fluid removal; tolerating dialysis treatment at the time of my visit (seen on HD at 10:00AM) but fluid removal has been challenging due relative hypotension despite midodrine and IV albumin support; paracentesis scheduled for later today; br eathing seems better in general. Exam Narrative: General: elderly but WD/WN male in NAD Heart: normal S1 and S2; no rub Lungs: coarse and decreased at bases Abdomen: soft, ++ distension; positive bowel sounds Extremities: no cyanosis or clubbing; trace edema Skin: warm and dry Objective Data Vital Signs Vital Signs: Vital Signs Temp Pulse Resp BP Pulse Ox O2 Del Method O2 Flow Rate 02/01/24 10:00 91 101/69 02/01/24 09:45 91 93/64 L 02/01/24 09:30 100 98/70 L 02/01/24 09:15 94 100/68 02/01/24 09:00 90 107/69 02/01/24 08:45 99 99/74 L 02/01/24 08:30 92 105/72 02/01/24 08:22 92
[2024-02-01] MEDS: EPOETIN ALFA-EPBX 4,000 UNITS/ML VIAL 4000 UNITS IV PUSH (10:48)
--- NOTE | 2024-02-01 12:46 | PM.IMPN ---
Progress Note: A&P Assessment and Plan (1) Sepsis: Qualifiers: Sepsis type: sepsis due to unspecified organism Sepsis acute organ dysfunction status: without acute organ dysfunction Qualified Code(s): A41.9 - Sepsis, unspecified organism Code(s): A41.9 - Sepsis, unspecified organism Status: Acute (2) Pneumonia: Qualifiers: Laterality: unspecified laterality Lung location: unspecified part of lung Pneumonia type: due to unspecified organism Qualified Code(s): J18.9 - Pneumonia, unspecified organism Code(s): J18.9 - Pneumonia, unspecified organism Status: Acute (3) Elevated troponin: Code(s): R79.89 - Other specified abnormal findings of blood chemistry Status: Acute (4) Cirrhosis: Qualifiers: Ascites presence: with ascites Hepatic cirrhosis type: unspecified hepatic cirrhosis Qualified Code(s): K74.60 - Unspecified cirrhosis of liver; R18.8 - Other ascites Code(s): K74.60 - Unspecified cirrhosis of liver Status: Acute (5) ESRD (end stage renal disease): Code(s): N18.6 - End stage renal disease Status: Chronic Plan 83-year-old male presented with shortness of breath weakness and fall. Triage vitals with heart rate of 108 respiratory rate of 22 otherwise normal limit. appear to be in [id number] respiratory distress with significant tachypnea on arrival to the ED. otherwise no hypoxia noted. Protuberant abdomen with recent ultrasound showing liver cirrhosis with portal hypertension and ascites. Laboratory workup revealed no leukocytosis hemoglobin normal at 12.7 normal AST ALT chest x-ray shows cardiomegaly with pulmonary edema. Troponin was elevated 1.040. No chest pain. On chronic anticoagulation with Eliquis 5 mg b.i.d. CTA showed no large central PE focal left upper lobe consolidation suspicious for pneumonia. Mediastinal lymphadenopathy likely reactive. She does show liver with ascites. Large pulmonary arteries consistent with pulmonary hypertension. influenza RSV and COVID negative. Lipase negative lactate was mildly elevated 2.1. He met SIRS criteria representing sepsis Sepsis follow blood culture. On vancomycin cefepime and azithromycin . vancomycin will be discontinued. MRSA PCR not detected. Left upper lobe consolidation/pneumonia procalcitonin 0.6 elevated troponin cardiology consulted history and troponin 1.040-1.220-1.660. Cardiology on board Cirrhosis of liver with ascites Paracentesis ordered no history of alcohol use. 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 Feeling better. He had dialysis yesterday. Abdominal prep Pap is planned today. Chest pain. Review of Systems Review of Systems: All systems reviewed & are unremarkable except as noted in HPI and below Exam Narrative: GENERAL: Well-appearing, well-nourished, and in no acute distress. HEAD: Normocephalic, atraumatic. EYES: PERRLA and EOMI. ENT: Nares clear. Mucous membranes moist. NECK: Supple. CHEST: Coarse bilateral breath sounds, no respiratory distress HEART: Regular rate and rhythm. Normal peripheral pulses. ABDOMEN: Soft, protuberant abdomen, non tender. EXTREMITIES: Normal range of motion. Trace bilateral lower extremity edema, no calf tenderness SKIN: Warm, dry, no rash. NEURO: No focal deficits. Alert and oriented x3. PSYCH: Normal mood and affect. Objective Data Vital Signs Vital Signs: Vital
[2024-02-01 13:02] LABS: INR 1.7; Prothrombin Time 20.6 Seconds (11.1-14.7)
[2024-02-01] MEDS: allopurinoL 150 MG TABLET PO (14:00)
[2024-02-01] MEDS: METOPROLOL TARTRATE 12.5 MG TABLET PO (14:00)
[2024-02-01] MEDS: SEVELAMER CARBONATE 800 MG TABLET 1600 MG PO ×2 (14:00→19:37)
[2024-02-01] MEDS: GABAPENTIN 300 MG CAPSULE PO (14:00)
[2024-02-01] MEDS: ASPIRIN 81 MG ENTERIC TABLET PO (14:00)
[2024-02-01] MEDS: CEFEPIME 1 GM/NS 50 ML 1 GM/50 ML BAG IVPB (17:00)
[2024-02-01] MEDS: APIXABAN 2.5 MG TABLET PO ×2 (17:37→22:16)
[2024-02-01] MEDS: ATORVASTATIN 20 MG TABLET PO (17:39)
[2024-02-01 18:09] LABS: Appearance Peritoneal Fluid Cloudy (Clear); Color Peritoneal Fluid Red (Colorless); Neutrophils Peritoneal Fluid 26 % (0-25); Nucleated Cells Peritoneal Flu 520 /uL (0-500); RBC Peritoneal Fluid 30000 /uL (0-10000); Source Peritoneal Fluid Peritoneal Fluid
[2024-02-01 18:10] LABS: Lymphocytes Peritoneal Fluid 32 %; Macrophages Peritoneal Fluid 17 %; Mesothelial Cells Peritoneal Fluid 2 %; Monocytes Peritoneal Fluid 23 %
[2024-02-01] MEDS: AZITHROMYCIN 500 MG/NS 250 ML 500 MG/250 ML BAG 250 MG IVPB (19:37)
[2024-02-01] MEDS: ALBUMIN HUMAN 25% 25 GM/100 ML 100 ML IVPB (22:15)
[2024-02-02] VITALS (15 sets, daily range): BP systolic 91–101; BP diastolic 54–67; PULSE 88–120; RESP 16–20; TEMP 36.7–36.9; O2SAT 93–96
[2024-02-02 06:26] LABS: Basophils Percent Auto 0.5 % (0.2-1.2); Hematocrit 36.1 % (42.0-52.0); Hemoglobin 12.2 g/dL (14.0-18.0); Immature Granulocyte Absolute 0.03 K/mm3 (0.00-0.031); Immature Granulocyte Percent A 0.4 % (0-0.5); Lymphocytes Absolute Auto 0.46 K/mm3 (0.9-3.2); Lymphocytes Percent Auto 5.7 % (18.3-44.2); Mean Corpuscular HGB Conc 33.8 g/dl (32-36); Mean Corpuscular Volume 103.4 fl (80-100); Mean Platelet Volume 9.6 fl (7.4-10.4); Monocytes Absolute Auto 1.5 K/mm3 (0.1-0.6); Monocytes Percent Auto 18.5 % (2.6-8.5); Neutrophils Percent Auto 74.9 % (45.5-73.1); Platelet Count Result 158 k/mm3 (150-375); Red Blood Count 3.49 M/mm3 (4.6-6.20); Red Cell Distribution Width 15.3 % (11.5-14.5); White Blood Count 8.1 K/mm3 (4.5-10.0)
[2024-02-02 06:42] LABS: Alanine Aminotransferase 27 U/L (6-50); Albumin Level 4.1 g/dL (3.5-5.1); Alkaline Phosphatase 215 U/L (38-126); Anion Gap 14 mmol/L (4-12); Aspartate Amino Transferase 50 U/L (17-59); Bilirubin,Total 2.7 mg/dL (0.2-1.3); Blood Urea Nitrogen 45 mg/dL (9-20); Calcium 9.9 mg/dL (8.4-10.2); Carbon Dioxide 26 mmol/L (22-30); Chloride 96 mmol/L (98-107); Estimated CRCL calculation 9 ml/min; Estimated Glomerular Filt Rate 8; Glucose 113 mg/dL (65-110); Magnesium 2.4 mg/dL (1.6-2.3); Potassium 4.5 mmol/L (3.4-5.0); Sodium 136 mmol/L (137-145)
--- NOTE | 2024-02-02 08:59 | PM.IMPN ---
Progress Note: A&P Assessment and Plan (1) Sepsis: Qualifiers: Sepsis type: sepsis due to unspecified organism Sepsis acute organ dysfunction status: without acute organ dysfunction Qualified Code(s): A41.9 - Sepsis, unspecified organism Code(s): A41.9 - Sepsis, unspecified organism Status: Acute (2) Pneumonia: Qualifiers: Laterality: unspecified laterality Lung location: unspecified part of lung Pneumonia type: due to unspecified organism Qualified Code(s): J18.9 - Pneumonia, unspecified organism Code(s): J18.9 - Pneumonia, unspecified organism Status: Acute (3) Elevated troponin: Code(s): R79.89 - Other specified abnormal findings of blood chemistry Status: Acute (4) Cirrhosis: Qualifiers: Ascites presence: with ascites Hepatic cirrhosis type: unspecified hepatic cirrhosis Qualified Code(s): K74.60 - Unspecified cirrhosis of liver; R18.8 - Other ascites Code(s): K74.60 - Unspecified cirrhosis of liver Status: Acute (5) ESRD (end stage renal disease): Code(s): N18.6 - End stage renal disease Status: Chronic Plan 83-year-old male presented with shortness of breath weakness and fall. Triage vitals with heart rate of 108 respiratory rate of 22 otherwise normal limit. appear to be in [id number] respiratory distress with significant tachypnea on arrival to the ED. otherwise no hypoxia noted. Protuberant abdomen with recent ultrasound showing liver cirrhosis with portal hypertension and ascites. Laboratory workup revealed no leukocytosis hemoglobin normal at 12.7 normal AST ALT chest x-ray shows cardiomegaly with pulmonary edema. Troponin was elevated 1.040. No chest pain. On chronic anticoagulation with Eliquis 5 mg b.i.d. CTA showed no large central PE focal left upper lobe consolidation suspicious for pneumonia. Mediastinal lymphadenopathy likely reactive. She does show liver with ascites. Large pulmonary arteries consistent with pulmonary hypertension. influenza RSV and COVID negative. Lipase negative lactate was mildly elevated 2.1. He met SIRS criteria representing sepsis Sepsis follow blood culture. On vancomycin cefepime and azithromycin . vancomycin discontinued. MRSA PCR not detected. Left upper lobe consolidation/pneumonia procalcitonin 0.6. Will recheck procalcitonin. Remains on cefepime and azithromycin complete 5 days course of azithromycin elevated troponin cardiology consulted history and troponin 1.040-1.220-1.660. Cardiology on board Cirrhosis of liver with ascites Paracentesis performed with removal of 5 L /05/2024. Await peritoneal fluid analysis resolved.. no history of alcohol use. Hepatitis panel negative . Need to follow up with GI/liver closel. Will order liver cirrhosis panely chronic atrial fibrillation on anticoagulation end-stage renal disease on hemodialysis Nephrology consulted on inpatient hemodialysis history of left renal carcinoma status post left nephrectomy with metastatic disease Diet-controlled diabetes Hypertension Hyperlipidemia Coronary artery disease Diet: renal dialysis GI Prophylaxis: not currently indicated DVT Prophylaxis: continue Eliquis Lines: peripheral Code Status: DNR, surrogate decision maker Alvin Jimenez Disposition: Need rehabilitation PT OT care coordination consult Subjective Date/time seen: 02/02/24 08:59 Interval history: no overnight events sitting up in the chair feels better. Leg swelling has improved. Denies any cough. Paracentesis was performed yesterday. Review of Systems Review of Systems: All systems reviewed & are unremarkable except as noted in HPI and below Exam Narrative: GENERAL: Well-appearing, well-nourished, and in no acute distress. HEAD: Normocephalic, atraumatic. EYES: PERRLA and EOMI. ENT: Nares clear. Mucous membranes moist. NECK: Supple. CHEST: Coarse bilateral breath sounds, no respiratory distress HEA
[2024-02-02] MEDS: MIDODRINE HCL 10 MG TABLET PO ×3 (09:02→17:07)
[2024-02-02] MEDS: allopurinoL 150 MG TABLET PO (09:02)
[2024-02-02] MEDS: METOPROLOL TARTRATE 12.5 MG TABLET PO (09:03)
[2024-02-02] MEDS: APIXABAN 2.5 MG TABLET PO ×2 (09:03→20:37)
[2024-02-02] MEDS: SEVELAMER CARBONATE 800 MG TABLET 1600 MG PO ×3 (09:03→17:07)
[2024-02-02] MEDS: GABAPENTIN 300 MG CAPSULE PO (09:03)
[2024-02-02] MEDS: ASPIRIN 81 MG ENTERIC TABLET PO (09:03)
[2024-02-02] MEDS: ATORVASTATIN 20 MG TABLET PO (09:03)
--- NOTE | 2024-02-02 10:33 | PM.PNNEP ---
Progress Note: A&P Assessment and Plan (1) ESRD (end stage renal disease): Code(s): N18.6 - End stage renal disease Status: Chronic Assessment and Plan: D tomorrow continue dialysis schedule of Thu/Thu/Thursday while hospitalized follow electrolytes, volume status, and clearance s/p DUF treatment on 01/30 for further fluid removal (2) Shortness of breath: Code(s): R06.02 - Shortness of breath Status: Acute Assessment and Plan: mild improvement presumably due to pulmonary edema + pneumonia + ascites s/p DUF on 01/30 for further fluid removal IV antibiotics no evidence of hypoxia imaging to date (CT of chest and CXR) noted follow respiratory status (3) Pneumonia: Qualifiers: Laterality: unspecified laterality Lung location: unspecified part of lung Pneumonia type: due to unspecified organism Qualified Code(s): J18.9 - Pneumonia, unspecified organism Code(s): J18.9 - Pneumonia, unspecified organism Status: Acute Assessment and Plan: as noted by CT of chest COVID/RSV/influenza studies negative on IV antibiotic therapy sputum culture if able follow culture data (4) Elevated troponin: Code(s): R79.89 - Other specified abnormal findings of blood chemistry Status: Acute Assessment and Plan: as noted Cardiology recommendations noted already on anticoagulation (5) Cirrhosis: Qualifiers: Ascites presence: with ascites Hepatic cirrhosis type: unspecified hepatic cirrhosis Qualified Code(s): K74.60 - Unspecified cirrhosis of liver; R18.8 - Other ascites Code(s): K74.60 - Unspecified cirrhosis of liver Status: Acute Assessment and Plan: fairly new finding [facility] outpatient abdominal ultrasound (on 01/29): 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 s/p diagnostic and therapeutic paracentesis on 01/31 continue supportive therapy (6) Hypotension: Code(s): I95.9 - Hypotension, unspecified Status: Acute Assessment and Plan: chronic issue on midodrine therapy as an outpatient possibly related to liver cirrhosis (?) Will continue to follow. Subjective Date/time seen: 02/02/24 10:33 Interval history: Follow-up for end stage renal disease on hemodialysis. Tolerated dialysis treatment yesterday as well as large volume paracentesis with improvement in symptoms but still reports some shortness of breath still but no evidence of hypoxia noted; no issues/events overnight or earlier this morning. Exam Narrative: General: elderly but WD/WN male in NAD Heart: normal S1 and S2; no rub Lungs: coarse and decreased at bases Abdomen: soft, nontender, less distension; positive bowel sounds Extremities: no cyanosis or clubbing; trace edema Skin: warm and intact Objective Data Vital Signs Vital Signs: Vital Signs Temp Pulse Resp BP Pulse Ox O2 Del Method FiO2 02/02/24 09:03 Room Air 02/02/24 09:32 93 Room Air 21 02/02/24 09:00 98.5 F 109 H 18 101/58 L 96 02/02/24 09:03 109 H 02/02/24 04:00 95 02/01/24 20:00 Room Air 02/02/24 04:15 98.2 F 97 16 98/54 L 93 02/01/24 20:00 98.1 F 81 18 84/60 L 91 02/01/24 18:00 78 02/01/24 16:00 78 02/01/24 15:14 97.8 F 87 16 90/60 L 92 02/01/24 14:00 99 Intake/Output Intake/Output: Intake & Output 01/30/24 01/31/24 02/01/24 02/02/24 23:59 23:59 23:59 23:59 Intake Total 900.0 2055 1190 490 Output Total 3000 7400 Balance 900.0 943 -4110 490 Meds/Results Medications: Active Medications Generic Name Dose Route Start Last Admin Trade Name Freq PRN Reason Stop Dose Admin Albuterol/Ipratropium 3 ml 02/02/24 14:00 Ipratropium 0.5 Mg/Albuterol Sulfate 2.5 Mg Ampul.Neb 3 Ml INHALATION Q6HRT KOREY Allopurinol 150 mg 01/31/24 08:00 02/02/24
--- NOTE | 2024-02-02 10:33 | P.PNNP_ITS ---
Progress Note: A&P Assessment and Plan (1) ESRD (end stage renal disease): Code(s): N18.6 - End stage renal disease Status: Chronic Assessment and Plan: * lHD tomorrow * continue dialysis schedule of Thu/Thu/Thursday while hospitalized * follow electrolytes, volume status, and clearance * s/p DUF treatment on 01/30 for further fluid removal (2) Shortness of breath: Code(s): R06.02 - Shortness of breath Status: Acute Assessment and Plan: * mild improvement * presumably due to pulmonary edema + pneumonia + ascites * s/p DUF on 01/30 for further fluid removal * IV antibiotics * no evidence of hypoxia * imaging to date (CT of chest and CXR) noted * follow respiratory status (3) Pneumonia: Qualifiers: Laterality: unspecified laterality Lung location: unspecified part of lung Pneumonia type: due to unspecified organism Qualified Code(s): J18.9 - Pneumonia, unspecified organism Code(s): J18.9 - Pneumonia, unspecified organism Status: Acute Assessment and Plan: * as noted by CT of chest * COVID/RSV/influenza studies negative * on IV antibiotic therapy * sputum culture if able * follow culture data (4) Elevated troponin: Code(s): R79.89 - Other specified abnormal findings of blood chemistry Status: Acute Assessment and Plan: * as noted * Cardiology recommendations noted * already on anticoagulation (5) Cirrhosis: Qualifiers: Ascites presence: with ascites Hepatic cirrhosis type: unspecified hepatic cirrhosis Qualified Code(s): K74.60 - Unspecified cirrhosis of liver; R18.8 - Other ascites Code(s): K74.60 - Unspecified cirrhosis of liver Status: Acute Assessment and Plan: * fairly new finding * nored outpatient abdominal ultrasound (on 01/29): * 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 * s/p diagnostic and therapeutic paracentesis on 01/31 * continue supportive therapy (6) Hypotension: Code(s): I95.9 - Hypotension, unspecified Status: Acute Assessment and Plan: * chronic issue * on midodrine therapy as an outpatient * possibly related to liver cirrhosis (?) Will continue to follow. Subjective Date/time seen: 02/02/24 10:33 Interval history: Follow-up for end stage renal disease on hemodialysis. Tolerated dialysis treatment yesterday as well as large volume paracentesis with improvement in symptoms but still reports some shortness of breath still but no evidence of hypoxia noted; no issues/events overnight or earlier this morning. Exam Narrative: General: elderly but WD/WN male in NAD Heart: normal S1 and S2; no rub Lungs: coarse and decreased at bases Abdomen: soft, nontender, less distension; positive bowel sounds Extremities: no cyanosis or clubbing; trace edema Skin: warm and intact Objective Data Vital Signs Vital Signs: Vital Signs Temp Pulse Resp BP Pulse Ox O2 Del Method FiO2 02/02/24 09:03 Room Air 02/02/24 09:32 93 Room Air 21 02/02/24 09:00 98.5 F 109 H 18 101/58 L 96 02/02/24 09:03 109 H 02/02/24 04:00 95 02/01/24 20:00 Room Air 02/02/24 04:15 98.2 F 97 16 98/54 L 93 02/01/24 20:00 98.1 F 81 18 84/60 L 91
--- NOTE | 2024-02-02 11:40 | PC.NURSE ---
RN called hospitalist Haresh. No answer at this time.
--- NOTE | 2024-02-02 12:20 | P.CONGI_ITS ---
I, Jsoh Caceres MD, have provided a substantive portion of the care of this patient and discussed the patient with my Nurse Practitioner. I have reviewed any new relevant radiographic and laboratory results including medications. I agree with her documentation as noted below.?I personally performed the medical decision making and much of the history and exam for this encounter. briefly, he had kidney cancer s/p nephrectomy, ESRD on dialysis, CAD here with worsening shortness of breath, admitted with diagnosis of sepsis and pneumonia, also noted elevated troponin and evaluated by cardiology. Incidental finding of cirrhosis in CT scan (denies previous history, no alcohol use), normal transaminases with bili 3, normal platelets. Also had ascites and underwent paracentesis. Management is difficult given that he has ESRD, may need paracentesis as needed, also 2g na diet. EGD as outpatient to assess for portal hypertension after more stable. Assessment and Plan Assessment and plan (1) Cirrhosis: Qualifiers: Ascites presence: with ascites Hepatic cirrhosis type: unspecified hepatic cirrhosis Qualified Code(s): K74.60 - Unspecified cirrhosis of liver; R18.8 - Other ascites Code(s): K74.60 - Unspecified cirrhosis of liver Status: Acute (2) Abdominal ascites: Qualifiers: Ascites type: other type Qualified Code(s): R18.8 - Other ascites Code(s): R18.8 - Other ascites Status: Acute (3) Elevated LFTs: Code(s): R79.89 - Other specified abnormal findings of blood chemistry Status: Acute (4) Chronic disease anemia: Code(s): D63.8 - Anemia in other chronic diseases classified elsewhere Status: Acute Plan 1) Cirrhosis/ascites / elevated LFTs: Patient denies prior history of liver disease. Denies any current or history of alcohol abuse. Patient admits to chronic lower extremity edema but states that over the past 6 months he has been experienced abdominal girth. CTA an abdominal ultrasound this admission showed cirrhosis with portal hypertension and ascites. no signs of biliary ductal dilation with CBD measuring 4 mm. Patient had a diagnostic/therapeutic paracentesis 02/01/2024 at which time he had 5 L removed. Paracentesis fluid pathology still pending results. Patient with history of kidney cancer S/P left kidney nephrectomy and patient is on hemodialysis 3 days weekly. LFT showed normal liver transaminases and elevated total bilirubin and alkaline phosphatase that has been trending down since admission. Total bilirubin 3.0-->2.7 and Alk Phos 349-->215. platelets and INR normal. Hepatitis panel negative. Ascites e tiology may be multifactorial given comorbidities. * treatment is limited due to end-stage renal disease and hypertension as it limits our ability to use diuretics or beta-blockers * nephrology on case, and if diuretics were started we will allow nephrology to manage * continue therapeutic paracentesis as needed * patient will need an outpatient EGD to screen for esophageal varices once he is stable * Further recommendations to follow workup 2) Macrocytic anemia: Labs today show HGB 12, HCT 36, MCV 103, platelets 158. patient is on Eliquis and aspirin daily. No signs of active GI bleeding to include hematemesis, hematochezia, or melena. * B12 and folate ordered, supplement if low * primary care team to continue monitoring This report may have been done utilizing a voice recognition system. Attempts have been made to correct errors. However, there may be uncorrected grammatical, spelling, and recognition errors present. GI C
--- NOTE | 2024-02-02 12:20 | WPDGICN ---
Assessment and Plan Assessment and plan (1) Cirrhosis: Qualifiers: Ascites presence: with ascites Hepatic cirrhosis type: unspecified hepatic cirrhosis Qualified Code(s): K74.60 - Unspecified cirrhosis of liver; R18.8 - Other ascites Code(s): K74.60 - Unspecified cirrhosis of liver Status: Acute (2) Abdominal ascites: Qualifiers: Ascites type: other type Qualified Code(s): R18.8 - Other ascites Code(s): R18.8 - Other ascites Status: Acute (3) Elevated LFTs: Code(s): R79.89 - Other specified abnormal findings of blood chemistry Status: Acute (4) Chronic disease anemia: Code(s): D63.8 - Anemia in other chronic diseases classified elsewhere Status: Acute Plan 1) Cirrhosis/ascites / elevated LFTs: Patient denies prior history of liver disease. Denies any current or history of alcohol abuse. Patient admits to chronic lower extremity edema but states that over the past 6 months he has been experienced abdominal girth. CTA an abdominal ultrasound this admission showed cirrhosis with portal hypertension and ascites. no signs of biliary ductal dilation with CBD measuring 4 mm. Patient had a diagnostic/therapeutic paracentesis 02/01/2024 at which time he had 5 L removed. Paracentesis fluid pathology still pending results. Patient with history of kidney cancer S/P left kidney nephrectomy and patient is on hemodialysis 3 days weekly. LFT showed normal liver transaminases and elevated total bilirubin and alkaline phosphatase that has been trending down since admission. Total bilirubin 3.0-->2.7 and Alk Phos 349-->215. platelets and INR normal. Hepatitis panel negative. Ascites etiology may be multifactorial given comorbidities. treatment is limited due to end-stage renal disease and hypertension as it limits our ability to use diuretics or beta-blockers nephrology on case, and if diuretics were started we will allow nephrology to manage continue therapeutic paracentesis as needed patient will need an outpatient EGD to screen for esophageal varices once he is stable Further recommendations to follow workup 2) Macrocytic anemia: Labs today show HGB 12, HCT 36, MCV 103, platelets 158. patient is on Eliquis and aspirin daily. No signs of active GI bleeding to include hematemesis, hematochezia, or melena. B12 and folate ordered, supplement if low primary care team to continue monitoring This report may have been done utilizing a voice recognition system. Attempts have been made to correct errors. However, there may be uncorrected grammatical, spelling, and recognition errors present. GI Consult Note Consult date/time: 02/02/24 12:20 Reason for consult: Cirrhosis HPI: Russ Jimenez is a 83 year old male past medical surgical history of left renal cancer s/p left nephrectomy with metastatic disease, diabetes, HTN, HLD, A-Fib, history of [place], CAD, end-stage renal disease on dialysis, and peripheral neuropathy. he presented to the emergency room 01/30/2024 with complaints of shortness of breath, generalized weakness, fatigue, and worsening abdominal distention over the past 6 months. Patient admitted for pneumonia and sepsis. GI consulted for newly diagnosed cirrhosis. Patient was seen with multiple family members at bedside. Patient admits to chronic lower extremity edema but over the past 6 months has been experiencing increased abdominal girth Prior to admission. He admits to a decreased appetite and constipation for a few weeks prior to admission. He had tried MiraLax without improvement. He has had a small brown BMs since admission. He denies abdominal pain, nausea, vomiting, odynophagia, dysphagia, reflux, regurgitation, early satiety, unexplained weight loss, diarrhea, hematochezia, or melena. ENDOSCOPY HISTORY: Patient has never had an EGD or colonoscopy IMAGING: Chest X
[2024-02-02 15:31] LABS: Appearance Urine Cloudy (Clear); Bacteria Urine None Seen /hpf; Bilirubin Urine 1+ (Negative); Blood Urine 2+ (Negative); Color Urine Dark Yellow (Yellow); Glucose Urine UA Negative (Negative); Ketones Urine Trace mg/dL (Negative); Leukocyte Esterase Ur Trace LEU/UL (Negative); Need Manual Microscopic Reviewed; Nitrate Urine Negative (Negative); Protein Urine 3+ mg/dL (Negative); Specific Grav Ur 1.025 (1.001-1.035); Squamous Epithelial Cell Urine Occasional /hpf (Few)
[2024-02-02 15:34] LABS: Add Urine Microscopic? YES
[2024-02-02 15:36] LABS: Iron 28 ug/dL (49-181)
[2024-02-02 15:45] LABS: Percent Iron Saturation 15 % (20-50)
[2024-02-02 16:13] LABS: Vitamin B12 > 1000.0 pg/mL (239-931)
[2024-02-02] MEDS: AZITHROMYCIN 500 MG/NS 250 ML 500 MG/250 ML BAG 250 MG IVPB (17:07)
[2024-02-02 17:56] LABS: Folic Acid 10.9 ng/mL (2.76->20)
--- NOTE | 2024-02-02 18:40 | PCRCNOTE ---
Window of time for administration has passed. See next scheduled administration.
[2024-02-02] MEDS: IPRATROPIUM 0.5 MG/ALBUTEROL SULFATE 2.5 MG AMPUL.NEB 3 ML INHALATION (20:16)
[2024-02-02] MEDS: guaiFENesin 12 HR 600 MG TABCR PO (20:37)
[2024-02-03] VITALS (36 sets, daily range): BP systolic 90–106; BP diastolic 52–69; PULSE 59–98; RESP 16–24; TEMP 36.3–37; O2SAT 92–99
[2024-02-03] MEDS: IPRATROPIUM 0.5 MG/ALBUTEROL SULFATE 2.5 MG AMPUL.NEB 3 ML INHALATION ×3 (03:20→20:27)
[2024-02-03 05:40] LABS: Basophils Percent Auto 0.5 % (0.2-1.2); Hematocrit 36.5 % (42.0-52.0); Hemoglobin 12.3 g/dL (14.0-18.0); Immature Granulocyte Absolute 0.04 K/mm3 (0.00-0.031); Immature Granulocyte Percent A 0.5 % (0-0.5); Lymphocytes Percent Auto 7.1 % (18.3-44.2); Mean Corpuscular HGB Conc 33.7 g/dl (32-36); Mean Corpuscular Hemoglobin 34.6 pg (26-34); Mean Corpuscular Volume 102.8 fl (80-100); Mean Platelet Volume 9.6 fl (7.4-10.4); Monocytes Percent Auto 23.2 % (2.6-8.5); Neutrophils Absolute Auto 5.8 K/mm3 (1.3-6.7); Neutrophils Percent Auto 68.7 % (45.5-73.1); Platelet Count Result 177 k/mm3 (150-375); Red Blood Count 3.55 M/mm3 (4.6-6.20); White Blood Count 8.4 K/mm3 (4.5-10.0)
[2024-02-03 05:53] LABS: Alanine Aminotransferase 30 U/L (6-50); Albumin Level 3.8 g/dL (3.5-5.1); Alkaline Phosphatase 197 U/L (38-126); Anion Gap 12 mmol/L (4-12); Aspartate Amino Transferase 49 U/L (17-59); Bilirubin,Total 2.3 mg/dL (0.2-1.3); Blood Urea Nitrogen 62 mg/dL (9-20); Calcium 9.6 mg/dL (8.4-10.2); Carbon Dioxide 26 mmol/L (22-30); Chloride 95 mmol/L (98-107); Estimated CRCL calculation 8 ml/min; Estimated Glomerular Filt Rate 7; Glucose 116 mg/dL (65-110); Magnesium 2.6 mg/dL (1.6-2.3); Potassium 4.4 mmol/L (3.4-5.0); Sodium 133 mmol/L (137-145)
[2024-02-03] MEDS: MIDODRINE HCL 10 MG TABLET PO ×3 (07:53→17:19)
[2024-02-03] MEDS: HEPARIN SODIUM 1,000 UNITS/ML VIAL 2500 UNITS IV PUSH (08:18)
[2024-02-03] MEDS: HEPARIN SODIUM 1,000 UNITS/ML VIAL 600 UNITS IV PUSH ×3 (08:24→10:24)
[2024-02-03] MEDS: ALBUMIN HUMAN 25% 12.5 GM/50ML 100 ML IVPB (08:33)
--- NOTE | 2024-02-03 10:35 | PCPTNOTE ---
Attempted PT evaluation, pt at dialysis. Will follow
--- NOTE | 2024-02-03 11:50 | PM.PNNEP ---
Progress Note: A&P Assessment and Plan (1) ESRD (end stage renal disease): Code(s): N18.6 - End stage renal disease Status: Chronic Assessment and Plan: HD today continue dialysis schedule of Thu/Thu/Thursday while hospitalized follow electrolytes, volume status, and clearance s/p DUF treatment on 01/30 for further fluid removal (2) Shortness of breath: Code(s): R06.02 - Shortness of breath Status: Acute Assessment and Plan: mild improvement presumably due to pulmonary edema + pneumonia + ascites s/p DUF on 01/30 for further fluid removal IV antibiotics no evidence of hypoxia imaging to date (CT of chest and CXR) noted follow respiratory status (3) Pneumonia: Qualifiers: Laterality: unspecified laterality Lung location: unspecified part of lung Pneumonia type: due to unspecified organism Qualified Code(s): J18.9 - Pneumonia, unspecified organism Code(s): J18.9 - Pneumonia, unspecified organism Status: Acute Assessment and Plan: as noted by CT of chest COVID/RSV/influenza studies negative on IV antibiotic therapy sputum culture if able follow culture data (4) Elevated troponin: Code(s): R79.89 - Other specified abnormal findings of blood chemistry Status: Acute Assessment and Plan: as noted Cardiology recommendations noted already on anticoagulation (5) Cirrhosis: Qualifiers: Ascites presence: with ascites Hepatic cirrhosis type: unspecified hepatic cirrhosis Qualified Code(s): K74.60 - Unspecified cirrhosis of liver; R18.8 - Other ascites Code(s): K74.60 - Unspecified cirrhosis of liver Status: Acute Assessment and Plan: fairly new finding nored outpatient abdominal ultrasound (on 01/29): 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 s/p diagnostic and therapeutic paracentesis on 01/31 GI following continue supportive therapy (6) Hypotension: Code(s): I95.9 - Hypotension, unspecified Status: Acute Assessment and Plan: chronic issue on midodrine therapy as an outpatient possibly related to liver cirrhosis (?) Will continue to follow. Subjective Date/time seen: 02/03/24 11:50 Interval history: Follow-up for end stage renal disease on hemodialysis. Tolerating dialysis treatment at the time of my visit (seen on HD at 11:40AM); shortness of breath continues to persist despite all therapy/interventions to date; no apparent distress noted; stable oxygen saturations; no other events overnight to report. Exam Narrative: General: elderly but WD/WN male in NAD Heart: normal S1 and S2; no rub Lungs: coarse and decreased at bases Abdomen: soft, nontender, less distension; positive bowel sounds Extremities: no cyanosis or clubbing; trace edema Skin: no rash Objective Data Vital Signs Vital Signs: Vital Signs Temp Pulse Resp BP Pulse Ox O2 Del Method O2 Flow Rate 02/03/24 11:45 87 90/58 L 02/03/24 11:30 94 94/66 L 02/03/24 11:15 87 93/62 L 02/03/24 11:00 90 94/65 L 02/03/24 10:45 93 91/67 L 02/03/24 10:30 93 96/67 L 02/03/24 10:15 96 96/68 L 02/03/24 09:30 83 100/65 02/03/24 09:15 88 96/60 L 02/03/24 09:00 87 93/69 L 02/03/24 08:45 84 106/66 02/03/24 08:30 87 101/67 02/03/24 08:24 86 93/66 L 02/03/24 08:24 3 02/03/24 08:05 97.9 F 85 24 H 102/67 02/03/24 04:00 77 02/03/24 00:00 78 02/02/24 20:00 96 02/03/24 03:30 84 20 02/03/24 03:20 90 20 02/02/24 20:00 93 Nasal Cannula 3 02/02/24 20:27 94 20 02/02/24 20:17 88 20 02/02/24 20:17 88 94 Nasal Cannula 3 02/02/24 19:58 98.4 F 91 20 91/67 L 95 02/02/24 16:00 120 H Intake/Output Intake/Output: Intake & Output
--- NOTE | 2024-02-03 11:50 | P.PNNP_ITS ---
Progress Note: A&P Assessment and Plan (1) ESRD (end stage renal disease): Code(s): N18.6 - End stage renal disease Status: Chronic Assessment and Plan: * HD today * continue dialysis schedule of Thu/Thu/Thursday while hospitalized * follow electrolytes, volume status, and clearance * s/p DUF treatment on 01/30 for further fluid removal (2) Shortness of breath: Code(s): R06.02 - Shortness of breath Status: Acute Assessment and Plan: * mild improvement * presumably due to pulmonary edema + pneumonia + ascites * s/p DUF on 01/30 for further fluid removal * IV antibiotics * no evidence of hypoxia * imaging to date (CT of chest and CXR) noted * follow respiratory status (3) Pneumonia: Qualifiers: Laterality: unspecified laterality Lung location: unspecified part of lung Pneumonia type: due to unspecified organism Qualified Code(s): J18.9 - Pneumonia, unspecified organism Code(s): J18.9 - Pneumonia, unspecified organism Status: Acute Assessment and Plan: * as noted by CT of chest * COVID/RSV/influenza studies negative * on IV antibiotic therapy * sputum culture if able * follow culture data (4) Elevated troponin: Code(s): R79.89 - Other specified abnormal findings of blood chemistry Status: Acute Assessment and Plan: * as noted * Cardiology recommendations noted * already on anticoagulation (5) Cirrhosis: Qualifiers: Ascites presence: with ascites Hepatic cirrhosis type: unspecified hepatic cirrhosis Qualified Code(s): K74.60 - Unspecified cirrhosis of liver; R18.8 - Other ascites Code(s): K74.60 - Unspecified cirrhosis of liver Status: Acute Assessment and Plan: * fairly new finding * nored outpatient abdominal ultrasound (on 01/29): * 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 * s/p diagnostic and therapeutic paracentesis on 01/31 * GI following * continue supportive therapy (6) Hypotension: Code(s): I95.9 - Hypotension, unspecified Status: Acute Assessment and Plan: * chronic issue * on midodrine therapy as an outpatient * possibly related to liver cirrhosis (?) Will continue to follow. Subjective Date/time seen: 02/03/24 11:50 Interval history: Follow-up for end stage renal disease on hemodialysis. Tolerating dialysis treatment at the time of my visit (seen on HD at 11:40AM); shortness of breath continues to persist despite all therapy/interventions to date; no apparent distress noted; stable oxygen saturations; no other events overnight to report. Exam Narrative: General: elderly but WD/WN male in NAD Heart: normal S1 and S2; no rub Lungs: coarse and decreased at bases Abdomen: soft, nontender, less distension; positive bowel sounds Extremities: no cyanosis or clubbing; trace edema Skin: no rash Objective Data Vital Signs Vital Signs: Vital Signs Temp Pulse Resp BP Pulse Ox O2 Del Method O2 Flow Rate 02/03/24 11:45 87 90/58 L 02/03/24 11:30 94 94/66 L 02/03/24 11:15 87 93/62 L 02/03/24 11:00 90 94/65 L 02/03/24 10:45 93 91/67 L 02/03/24 10:30 93 96/67 L 02/03/24 10:15 96 96/68 L 02/03/24 09:30 83 100/65 0
--- NOTE | 2024-02-03 12:16 | PCOTNOTE ---
Attempted to see pt for OT treatment. Pt is currently off unit for dialysis. Will continue per poc duration/frequency when available.
[2024-02-03] MEDS: allopurinoL 150 MG TABLET PO (12:47)
[2024-02-03] MEDS: SEVELAMER CARBONATE 800 MG TABLET 1600 MG PO ×2 (12:47→17:19)
[2024-02-03] MEDS: GABAPENTIN 300 MG CAPSULE PO (12:47)
[2024-02-03] MEDS: APIXABAN 2.5 MG TABLET PO (12:47)
[2024-02-03] MEDS: guaiFENesin 12 HR 600 MG TABCR PO ×2 (12:47→20:39)
[2024-02-03] MEDS: ASPIRIN 81 MG ENTERIC TABLET PO (12:47)
[2024-02-03] MEDS: ATORVASTATIN 20 MG TABLET PO (12:47)
--- NOTE | 2024-02-03 12:49 | PC.NURSE ---
Patient returned from Dialysis per bed.
--- NOTE | 2024-02-03 14:33 | P.PNIM_ITS ---
Progress Note: A&P Assessment and Plan (1) Sepsis: Qualifiers: Sepsis acute organ dysfunction status: without acute organ dysfunction Sepsis type: sepsis due to unspecified organism Qualified Code(s): A41.9 - S epsis, unspecified organism Code(s): A41.9 - Sepsis, unspecified organism Status: Acute (2) Pneumonia: Qualifiers: Laterality: unspecified laterality Lung location: unspecified part of lung Pneumonia type: due to unspecified organism Qualified Code(s): J18.9 - Pneumonia, unspecified organism Code(s): J18.9 - Pneumonia, unspecified organism Status: Acute (3) Elevated troponin: Code(s): R79.89 - Other specified abnormal findings of blood chemistry Status: Acute (4) Cirrhosis: Qualifiers: Ascites presence: with ascites Hepatic cirrhosis type: unspecified hepatic cirrhosis Qualified Code(s): K74.60 - Unspecified cirrhosis of liver; R18.8 - Other ascites Code(s): K74.60 - Unspecified cirrhosis of liver Status: Acute (5) ESRD (end stage renal disease): Code(s): N18.6 - End stage renal disease Status: Chronic Plan Sepsis without septic shock-RESOLVED Secondary to pneumonia * empiric IV antibiotic therapy * Monitor lactic acid levels q6hr. WNL * Repeat CBC, CMP. * Two sets of blood cultures NGTD * C-reactive proteins * procalcitonin level. * PTT and PT, INR. * neuro status checks * Chest x-ray LT upper lobe pneumonia. * Monitor albumin, monitoring of mental status. ABD ascites/elevated liver enzymes * GI consulted * Paracentesis yield 5L * Hepatitis panel pending * No alcohol HX ESRD * Due to HX of renal carcinoma with LT nephrectomy * dialysis MWF * nephrology consulted * Avoid nephrotoxic drugs. * Monitor antihypertensive drug therapy. * Avoid NSAIDs. * Routine CMP monitoring GFR. * Monitor electrolytes especially potassium. * Antibiotic doses depending on creatinine clearance. * Pharmacy does medications. Pleural effusion/left upper lobe consolidation * Have some concern for malignancy * thoracentesis * hold Eliquis * Is to send pleural studies Hypotension: * Chronic * Resumed midodrine HX HTN: Resumed home medications HX HLD: resumed statin HX AFIB: Holding Eliquis for procedure HX gout: Resume allopurinol Code status: DNR, surrogate decision maker Alvin Jimenez DVT prophylaxis: Eliquis Stress ulcer prophylaxis: Protonix 40 daily PT/OT notes: PT/OT evaluation SNF Disposition: Patient admitted to the medical unit with new onset ascites, pneumonia in left moderate pleural effusion patient underwent appearance T6 which yielded 5 L undergo a thoracentesis for pleural studies. Time Spent With Patient Time with patient: 15 - 25 minutes Subjective Date/time seen: 02/03/24 14:33 Interval history: Admission: Medical record Narrative: 83 y/o M presents here with shortness of breath, generalized weakness, and ground-level fall with PMH of renal cell carcinoma (s/p left nephrectomy), AFib, CAD, ESRD on HD (MWF), and HLD. The patient presents here for further evaluation of shortness of breath, generalized weakness, fatigue, and worsening abdominal distension over the past 6 months. However, the shortness of breath has significantly worsened over the last week and accompanied by a intermittently productive cough yielding green sputum. No associated fever chills, body aches. H
--- NOTE | 2024-02-03 14:33 | PM.IMPN ---
Progress Note: A&P Assessment and Plan (1) Sepsis: Qualifiers: Sepsis acute organ dysfunction status: without acute organ dysfunction Sepsis type: sepsis due to unspecified organism Qualified Code(s): A41.9 - Sepsis, unspecified organism Code(s): A41.9 - Sepsis, unspecified organism Status: Acute (2) Pneumonia: Qualifiers: Laterality: unspecified laterality Lung location: unspecified part of lung Pneumonia type: due to unspecified organism Qualified Code(s): J18.9 - Pneumonia, unspecified organism Code(s): J18.9 - Pneumonia, unspecified organism Status: Acute (3) Elevated troponin: Code(s): R79.89 - Other specified abnormal findings of blood chemistry Status: Acute (4) Cirrhosis: Qualifiers: Ascites presence: with ascites Hepatic cirrhosis type: unspecified hepatic cirrhosis Qualified Code(s): K74.60 - Unspecified cirrhosis of liver; R18.8 - Other ascites Code(s): K74.60 - Unspecified cirrhosis of liver Status: Acute (5) ESRD (end stage renal disease): Code(s): N18.6 - End stage renal disease Status: Chronic Plan Sepsis without septic shock-RESOLVED Secondary to pneumonia empiric IV antibiotic therapy Monitor lactic acid levels q6hr. WNL Repeat CBC, CMP. Two sets of blood cultures NGTD C-reactive proteins procalcitonin level. PTT and PT, INR. neuro status checks Chest x-ray LT upper lobe pneumonia. Monitor albumin, monitoring of mental status. ABD ascites/elevated liver enzymes GI consulted Paracentesis yield 5L Hepatitis panel pending No alcohol HX ESRD Due to HX of renal carcinoma with LT nephrectomy dialysis [facility] nephrology consulted Avoid nephrotoxic drugs. Monitor antihypertensive drug therapy. Avoid NSAIDs. Routine CMP monitoring GFR. Monitor electrolytes especially potassium. Antibiotic doses depending on creatinine clearance. Pharmacy does medications. Pleural effusion/left upper lobe consolidation Have some concern for malignancy thoracentesis hold Eliquis Is to send pleural studies Hypotension: Chronic Resumed midodrine HX HTN: Resumed home medications HX HLD: resumed statin HX AFIB: Holding Eliquis for procedure HX gout: Resume allopurinol Code status: DNR, surrogate decision maker Alvin Jimenez DVT prophylaxis: Eliquis Stress ulcer prophylaxis: Protonix 40 daily PT/OT notes: PT/OT evaluation SNF Disposition: Patient admitted to the medical unit with new onset ascites, pneumonia in left moderate pleural effusion patient underwent appearance T6 which yielded 5 L undergo a thoracentesis for pleural studies. Time Spent With Patient Time with patient: 15 - 25 minutes Subjective Date/time seen: 02/03/24 14:33 Interval history: Admission: Medical record Narrative: 83 y/o M presents here with shortness of breath, generalized weakness, and ground-level fall with PMH of renal cell carcinoma (s/p left nephrectomy), AFib, CAD, ESRD on HD (MWF), and HLD. The patient presents here for further evaluation of shortness of breath, generalized weakness, fatigue, and worsening abdominal distension over the past 6 months. However, the shortness of breath has significantly worsened over the last week and accompanied by a intermittently productive cough yielding green sputum. No associated fever chills, body aches. He reports the abdominal distention started over the winter and has been slowly progressing. Now accompanied by early satiety. Patient has history of ESRD and is on hemodialysis, appointments on Thursday, Thursday, and Thursday. Reports no missed treatment, last treatment yesterday (01/28). Shortness of breath not relieved with dialysis. Currently denying chest pain, nausea, vomiting, diarrhea, diaphoresis, syncope, or presyncope sensation. Emergency department he was tachycardic and tachypneic without hypoxia.
[2024-02-03] MEDS: polyethylene glycoL 3350 17 GM POWD.PACK PO (14:56)
--- NOTE | 2024-02-03 15:20 | WPDGIPROGNO ---
Progress Note: A&P Assessment and Plan (1) Cirrhosis: Qualifiers: Ascites presence: with ascites Hepatic cirrhosis type: unspecified hepatic cirrhosis Qualified Code(s): K74.60 - Unspecified cirrhosis of liver; R18.8 - Other ascites Code(s): K74.60 - Unspecified cirrhosis of liver Status: Acute Assessment and Plan: new diagnosis, ? 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 nutrition support consider EGD as outpatient to assess if portal htn (2) Abdominal ascites: Qualifiers: Ascites type: other type Qualified Code(s): R18.8 - Other ascites Code(s): R18.8 - Other ascites Status: Acute Assessment and Plan: s/p 5 liters removed he is on dialysis and use of diuretics will be hard 2g na diet he can get paracentesis as needed increase RBC in fluid but no sbp however he is on abx because of pneumonia (3) ESRD (end stage renal disease): Code(s): N18.6 - End stage renal disease Status: Chronic Assessment and Plan: on dialysis (4) Elevated LFTs: Code(s): R79.89 - Other specified abnormal findings of blood chemistry Status: Acute (5) Sepsis: Qualifiers: Sepsis type: sepsis due to unspecified organism Sepsis acute organ dysfunction status: without acute organ dysfunction Qualified Code(s): A41.9 - Sepsis, unspecified organism Code(s): A41.9 - Sepsis, unspecified organism Status: Acute (6) Pneumonia: Qualifiers: Laterality: unspecified laterality Lung location: unspecified part of lung Pneumonia type: due to unspecified organism Qualified Code(s): J18.9 - Pneumonia, unspecified organism Code(s): J18.9 - Pneumonia, unspecified organism Status: Acute Assessment and Plan: on abx symptomatically better Subjective Date/time seen: 02/03/24 15:20 Interval history: he is feeling better, up in chair. Several members at bedside Review of Systems Review of Systems: All systems reviewed & are unremarkable except as noted in HPI and below Exam Const: General: comfortable Other: chronically ill appearing HENMT: Face/Nose/Sinus: Normal nares present Eyes: General: appearance normal, both eyes and all related structures Neck: Neck: supple Resp: Auscultation: no crackles and rhonchi Cardio: Rate: regular rate GI: GI Palp: Yes Soft to palpation and No Tenderness to palpation present (GI) Auscultation: normal bowel sounds Other: less fluid wave Skin: General skin exam: normal color Neuro: Speech: normal speech Motor exam (neuro): 5/5 motor strength present throughout Extrem: General: normal to inspection Psych: Affect: normal affect Objective Data Vital Signs Vital Signs: Vital Signs - 24 hr 02/02/24 16:00 02/02/24 19:58 02/02/24 20:17 Temperature 98.4 F Pulse Rate 120 H 91 88 Respiratory Rate 20 Blood Pressure 91/67 L Pulse Oximetry 95 94 Oxygen Delivery Nasal Cannula Oxygen Flow Rate 3 Fraction of Inspired Oxygen 02/02/24 20:17 02/02/24 20:27 02/02/24 20:00 Temperature Pulse Rate 88 94 Respiratory Rate 20 20 Blood Pressure Pulse Oximetry 93 Oxygen Delivery Nasal Cannula Oxygen Flow Rate 3 Fraction of Inspired Oxygen 21 02/03/24 03:20 02/03/24 03:30 02/02/24 20:00 Temperature Pulse Rate 90 84 96 Respiratory Rate 20 20 Blood Pressure Pulse Oximetry Oxygen Delivery Oxygen Flow Rate Fraction of Inspired Oxygen 02/03/24 00:00 02/03/24 04:00 02/03/24 08:05 Temperature 97.9 F Pulse Rate 78 77 85 Respiratory Rate 24 H Blood Pressure 102/67 Pulse Oximetry Oxygen Delivery Oxygen Flow Rate Fraction of Inspired Oxygen 02/03/24 08:24 02/03/24 08:24 02/03/24 09:45 Temperature Pulse Rate 86 96 Respiratory Rate Blood Pressure 93/66 L 92/67 L Pulse Oximetry Oxygen Delivery Oxygen Flow Rate 3 Fraction of Inspired Oxygen 02/03/24 10:00
[2024-02-03 17:00] LABS: INR 1.7; Prothrombin Time 20.4 Seconds (11.1-14.7)
[2024-02-03 17:16] LABS: Amylase 77 U/L (30-110); Bilirubin,Total 2.4 mg/dL (0.2-1.3); Cholesterol 64 mg/dL (0-200); Glucose 136 mg/dL (65-110); Lactate Dehydrogenase 171 U/L (120-246); Triglycerides 120 mg/dL (<150)
[2024-02-03] MEDS: AMOXICILLIN/CLAVULANATE K 500-125 MG TAB 1 TABLET PO (17:19)
[2024-02-03] MEDS: AZITHROMYCIN 250 MG TABLET 500 MG PO (17:19)
[2024-02-03] MEDS: METOPROLOL TARTRATE 12.5 MG TABLET PO (20:38)
[2024-02-04] VITALS (20 sets, daily range): BP systolic 87–99; BP diastolic 57–70; PULSE 72–94; RESP 16–20; TEMP 36.4–36.7; O2SAT 92–95
[2024-02-04] MEDS: IPRATROPIUM 0.5 MG/ALBUTEROL SULFATE 2.5 MG AMPUL.NEB 3 ML INHALATION ×4 (01:24→20:09)
[2024-02-04] MEDS: SODIUM CHLOR 3% 15 ML NEB (RESPIRATORY THERAPY) 6 ML INHALATION (04:46)
[2024-02-04 06:20] LABS: Estimated CRCL calculation 12 ml/min; Estimated Glomerular Filt Rate 9
[2024-02-04 06:21] LABS: INR 1.6; Prothrombin Time 18.9 Seconds (11.1-14.7)
[2024-02-04 06:22] LABS: Partial Thromboplastin Time 39.6 Seconds (22.3-36.8)
--- NOTE | 2024-02-04 08:17 | P.PNIM_ITS ---
Progress Note: A&P Assessment and Plan (1) Sepsis: Qualifiers: Sepsis acute organ dysfunction status: without acute organ dysfunction Sepsis type: sepsis due to unspecified organism Qualified Code(s): A41.9 - S epsis, unspecified organism Code(s): A41.9 - Sepsis, unspecified organism Status: Acute (2) Pneumonia: Qualifiers: Laterality: unspecified laterality Lung location: unspecified part of lung Pneumonia type: due to unspecified organism Qualified Code(s): J18.9 - Pneumonia, unspecified organism Code(s): J18.9 - Pneumonia, unspecified organism Status: Acute (3) Elevated troponin: Code(s): R79.89 - Other specified abnormal findings of blood chemistry Status: Acute (4) Cirrhosis: Qualifiers: Ascites presence: with ascites Hepatic cirrhosis type: unspecified hepatic cirrhosis Qualified Code(s): K74.60 - Unspecified cirrhosis of liver; R18.8 - Other ascites Code(s): K74.60 - Unspecified cirrhosis of liver Status: Acute (5) ESRD (end stage renal disease): Code(s): N18.6 - End stage renal disease Status: Chronic Plan Sepsis without septic shock-RESOLVING Secondary to pneumonia * empiric IV antibiotic therapy * Monitor lactic acid levels q6hr. WNL * Repeat CBC, CMP. * Two sets of blood cultures NGTD * C-reactive proteins * procalcitonin level. * PTT and PT, INR. * neuro status checks * Chest x-ray LT upper lobe pneumonia. * Monitor albumin, monitoring of mental status. ABD ascites/elevated liver enzymes * GI consulted * Paracentesis yield 5L * Hepatitis panel pending * No alcohol HX ESRD * Due to HX of renal carcinoma with LT nephrectomy * dialysis MWF * nephrology consulted * Avoid nephrotoxic drugs. * Monitor antihypertensive drug therapy. * Avoid NSAIDs. * Routine CMP monitoring GFR. * Monitor electrolytes especially potassium. * Antibiotic doses depending on creatinine clearance. * Pharmacy does medications. Pleural effusion/left upper lobe consolidation * Have some concern for malignancy * thoracentesis 02/03 * hold Eliquis * Is to send pleural studies 02/03: * Thoracentesis yielded 1000 mL of brown colored fluid with a pH >7.5 * Pleural studies pending Hypotension: * Chronic * Resumed midodrine HX HTN: Resumed home medications HX HLD: resumed statin HX AFIB: Holding Eliquis for procedure HX gout: Resume allopurinol Code status: DNR, surrogate decision maker Alvin Jimenez DVT prophylaxis: Eliquis Stress ulcer prophylaxis: Protonix 40 daily PT/OT notes: PT/OT evaluation SNF Disposition: Patient admitted to the medical unit with new onset ascites, pneumonia in left moderate pleural effusion patient underwent appearance T6 which yielded 5 L undergo a thoracentesis that yielded 1000ML. CC working on rehab placement. Time Spent With Patient Time with patient: 15 - 25 minutes Subjective Date/time seen: 02/04/24 08:17 Interval history: Admission: Medical record Narrative: 83 y/o M presents here with shortness of breath, generalized weakness, and ground-level fall with PMH of renal cell carcinoma (s/p left nephrectomy), AFib, CAD, ESRD on HD (MWF), and HLD. The patient presents here for further evaluation of shortness of breath, generalized weakness, fatigue, and worsening abdominal distension over the past 6 months. However, the shortness of breath
--- NOTE | 2024-02-04 08:17 | PM.IMPN ---
Progress Note: A&P Assessment and Plan (1) Sepsis: Qualifiers: Sepsis acute organ dysfunction status: without acute organ dysfunction Sepsis type: sepsis due to unspecified organism Qualified Code(s): A41.9 - Sepsis, unspecified organism Code(s): A41.9 - Sepsis, unspecified organism Status: Acute (2) Pneumonia: Qualifiers: Laterality: unspecified laterality Lung location: unspecified part of lung Pneumonia type: due to unspecified organism Qualified Code(s): J18.9 - Pneumonia, unspecified organism Code(s): J18.9 - Pneumonia, unspecified organism Status: Acute (3) Elevated troponin: Code(s): R79.89 - Other specified abnormal findings of blood chemistry Status: Acute (4) Cirrhosis: Qualifiers: Ascites presence: with ascites Hepatic cirrhosis type: unspecified hepatic cirrhosis Qualified Code(s): K74.60 - Unspecified cirrhosis of liver; R18.8 - Other ascites Code(s): K74.60 - Unspecified cirrhosis of liver Status: Acute (5) ESRD (end stage renal disease): Code(s): N18.6 - End stage renal disease Status: Chronic Plan Sepsis without septic shock-RESOLVING Secondary to pneumonia empiric IV antibiotic therapy Monitor lactic acid levels q6hr. WNL Repeat CBC, CMP. Two sets of blood cultures NGTD C-reactive proteins procalcitonin level. PTT and PT, INR. neuro status checks Chest x-ray LT upper lobe pneumonia. Monitor albumin, monitoring of mental status. ABD ascites/elevated liver enzymes GI consulted Paracentesis yield 5L Hepatitis panel pending No alcohol HX ESRD Due to HX of renal carcinoma with LT nephrectomy dialysis [facility] nephrology consulted Avoid nephrotoxic drugs. Monitor antihypertensive drug therapy. Avoid NSAIDs. Routine CMP monitoring GFR. Monitor electrolytes especially potassium. Antibiotic doses depending on creatinine clearance. Pharmacy does medications. Pleural effusion/left upper lobe consolidation Have some concern for malignancy thoracentesis 02/03 hold Eliquis Is to send pleural studies 02/03: Thoracentesis yielded 1000 mL of brown colored fluid with a pH >7.5 Pleural studies pending Hypotension: Chronic Resumed midodrine HX HTN: Resumed home medications HX HLD: resumed statin HX AFIB: Holding Eliquis for procedure HX gout: Resume allopurinol Code status: DNR, surrogate decision maker Alvin Ahlmeyer DVT prophylaxis: Eliquis Stress ulcer prophylaxis: Protonix 40 daily PT/OT notes: PT/OT evaluation SNF Disposition: Patient admitted to the medical unit with new onset ascites, pneumonia in left moderate pleural effusion patient underwent appearance T6 which yielded 5 L undergo a thoracentesis that yielded 1000ML. CC working on rehab placement. Time Spent With Patient Time with patient: 15 - 25 minutes Subjective Date/time seen: 02/04/24 08:17 Interval history: Admission: Medical record Narrative: 83 y/o M presents here with shortness of breath, generalized weakness, and ground-level fall with PMH of renal cell carcinoma (s/p left nephrectomy), AFib, CAD, ESRD on HD (MWF), and HLD. The patient presents here for further evaluation of shortness of breath, generalized weakness, fatigue, and worsening abdominal distension over the past 6 months. However, the shortness of breath has significantly worsened over the last week and accompanied by a intermittently productive cough yielding green sputum. No associated fever chills, body aches. He reports the abdominal distention started over the winter and has been slowly progressing. Now accompanied by early satiety. Patient has history of ESRD and is on hemodialysis, appointments on Thursday, Thursday, and Thursday. Reports no missed treatment, last treatment yesterday (01/28). Shortness of breath not relieved with dialysis. Currently denying chest pain, ayesha
[2024-02-04] MEDS: MIDODRINE HCL 10 MG TABLET PO ×3 (08:41→17:24)
[2024-02-04 12:04] LABS: Alpha-1-Antitrypsin, QN 226 mg/dL (83-199); Ceruloplasmin 33 mg/dL (14-30)
[2024-02-04 12:44] LABS: pH Pleural Fluid > 7.500 (7.210-7.500)
[2024-02-04 12:56] LABS: Appearance Pleural Fluid Cloudy (Clear); Color Pleural Fluid Red (Colorless); Pleural fluid source Pleural fluid
[2024-02-04 13:35] LABS: Nucleated Cell Pleural Fluid 2017 /uL (0-1000); RBC Pleural Fluid 16000 /uL (0-10000)
[2024-02-04 13:44] LABS: Lymphocytes Pleural Fluid 15 %; Macrophages Pleural Fluid 7 %; Mesothelial Cells Pleural Flui 37 %; Monocytes Pleural Fluid 21 %; Neutrophils Pleural Fluid 20 % (0-25)
--- NOTE | 2024-02-04 13:45 | PM.PNNEP ---
Progress Note: A&P Assessment and Plan (1) ESRD (end stage renal disease): Code(s): N18.6 - End stage renal disease Status: Chronic Assessment and Plan: HD tomorrow continue dialysis schedule of Thu/Thu/Thursday while hospitalized follow electrolytes, volume status, and clearance s/p DUF treatment on 01/30 for further fluid removal (2) Shortness of breath: Code(s): R06.02 - Shortness of breath Status: Acute Assessment and Plan: clinical improvement noted presumably due to pulmonary edema + pneumonia + ascites s/p DUF on 01/30 for further fluid removal s/p large volume paracentesis on 01/31 s/p thoracentesis on 02/03 IV antibiotics no evidence of hypoxia imaging to date (CT of chest and CXR) noted follow respiratory status (3) Pneumonia: Qualifiers: Laterality: unspecified laterality Lung location: unspecified part of lung Pneumonia type: due to unspecified organism Qualified Code(s): J18.9 - Pneumonia, unspecified organism Code(s): J18.9 - Pneumonia, unspecified organism Status: Acute Assessment and Plan: as noted by CT of chest COVID/RSV/influenza studies negative s/p thoracentesis today on IV antibiotic therapy sputum culture if able follow culture data (4) Elevated troponin: Code(s): R79.89 - Other specified abnormal findings of blood chemistry Status: Acute Assessment and Plan: as noted Cardiology recommendations noted already on anticoagulation (5) Cirrhosis: Qualifiers: Ascites presence: with ascites Hepatic cirrhosis type: unspecified hepatic cirrhosis Qualified Code(s): K74.60 - Unspecified cirrhosis of liver; R18.8 - Other ascites Code(s): K74.60 - Unspecified cirrhosis of liver Status: Acute Assessment and Plan: fairly new finding nored outpatient abdominal ultrasound (on 01/29): 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 s/p diagnostic and therapeutic paracentesis on 01/31 GI following continue supportive therapy (6) Hypotension: Code(s): I95.9 - Hypotension, unspecified Status: Acute Assessment and Plan: chronic issue on midodrine therapy as an outpatient possibly related to liver cirrhosis (?) Will continue to follow. Subjective Date/time seen: 02/04/24 13:45 Interval history: Follow-up for end stage renal disease on hemodialysis. Breathing seems to be doing significantly better following thoracentesis earlier today which he tolerated reasonably well; tolerated dialysis yesterday as well; no apparent distress noted; overall, states he does feel better since admission. Exam Narrative: General: elderly but WD/WN male in NAD Heart: normal S1 and S2; no rub Lungs: coarse and decreased at bases Abdomen: soft, nontender, less distension; positive bowel sounds Extremities: no cyanosis or clubbing; trace edema Skin: no nodules Objective Data Vital Signs Vital Signs: Vital Signs Temp Pulse Resp BP Pulse Ox O2 Del Method 02/04/24 12:00 85 02/04/24 08:31 88 18 02/04/24 08:23 90 18 02/04/24 08:25 94 Room Air 02/04/24 08:00 94 Room Air 02/04/24 08:00 94 02/04/24 07:53 Room Air 02/04/24 06:00 98.1 F 89 20 99/70 L 94 02/04/24 05:02 83 20 02/04/24 04:46 78 18 02/04/24 04:00 90 02/04/24 01:31 85 18 02/04/24 01:25 84 18 02/04/24 00:00 88 02/03/24 21:01 97.5 F L 94 16 93/57 L 92 02/03/24 20:00 Room Air 02/03/24 20:00 92 02/03/24 20:38 89 02/03/24 20:34 90 20 02/03/24 20:27 85 20 02/03/24 20:27 94 Room Air Intake/Output Intake/Output: Intake & Output 02/01/24 02/02/24 02/03/24 02/04/24 23:59 23:59 23:59 23:59 Intake Total 1190 1710 440 520 Output Total 7400 25 1999 1000 [facility] [phone]
--- NOTE | 2024-02-04 13:45 | P.PNNP_ITS ---
Progress Note: A&P Assessment and Plan (1) ESRD (end stage renal disease): Code(s): N18.6 - End stage renal disease Status: Chronic Assessment and Plan: * HD tomorrow * continue dialysis schedule of Thu/Thu/Thursday while hospitalized * follow electrolytes, volume status, and clearance * s/p DUF treatment on 01/30 for further fluid removal (2) Shortness of breath: Code(s): R06.02 - Shortness of breath Status: Acute Assessment and Plan: * clinical improvement noted * presumably due to pulmonary edema + pneumonia + ascites * s/p DUF on 01/30 for further fluid removal * s/p large volume paracentesis on 01/31 * s/p thoracentesis on 02/03 * IV antibiotics * no evidence of hypoxia * imaging to date (CT of chest and CXR) noted * follow respiratory status (3) Pneumonia: Qualifiers: Laterality: unspecified laterality Lung location: unspecified part of lung Pneumonia type: due to unspecified organism Qualified Code(s): J18.9 - Pneumonia, unspecified organism Code(s): J18.9 - Pneumonia, unspecified organism Status: Acute Assessment and Plan: * as noted by CT of chest * COVID/RSV/influenza studies negative * s/p thoracentesis today * on IV antibiotic therapy * sputum culture if able * follow culture data (4) Elevated troponin: Code(s): R79.89 - Other specified abnormal findings of blood chemistry Status: Acute Assessment and Plan: * as noted * Cardiology recommendations noted * already on anticoagulation (5) Cirrhosis: Qualifiers: Ascites presence: with ascites Hepatic cirrhosis type: unspecified hepatic cirrhosis Qualified Code(s): K74.60 - Unspecified cirrhosis of liver; R18.8 - Other ascites Code(s): K74.60 - Unspecified cirrhosis of liver Status: Acute Assessment and Plan: * fairly new finding * nored outpatient abdominal ultrasound (on 01/29): * 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 * s/p diagnostic and therapeutic paracentesis on 01/31 * GI following * continue supportive therapy (6) Hypotension: Code(s): I95.9 - Hypotension, unspecified Status: Acute Assessment and Plan: * chronic issue * on midodrine therapy as an outpatient * possibly related to liver cirrhosis (?) Will continue to follow. Subjective Date/time seen: 02/04/24 13:45 Interval history: Follow-up for end stage renal disease on hemodialysis. Breathing seems to be doing significantly better following thoracentesis earlier today which he tolerated reasonably well; tolerated dialysis yesterday as well; no apparent distress noted; overall, states he does feel better since admission. Exam Narrative: General: elderly but WD/WN male in NAD Heart: normal S1 and S2; no rub Lungs: coarse and decreased at bases Abdomen: soft, nontender, less distension; positive bowel sounds Extremities: no cyanosis or clubbing; trace edema Skin: no nodules Objective Data Vital Signs Vital Signs: Vital Signs Temp Pulse Resp BP Pulse Ox O2 Del Method 02/04/24 12:00 85 02/04/24 08:31 88 18 02/04/24 08:23 90 18 02/04/24 08:25 94 Room Air 02/04/24 08:00 94 Room Air 02/04/24 08:00 94 02/04/24 07:53 Room
[2024-02-04 14:13] LABS: Alpha Fetoprotein Tumor Marker 1.1 ng/mL (<6.1)
[2024-02-04] MEDS: allopurinoL 150 MG TABLET PO (14:41)
[2024-02-04] MEDS: ASPIRIN 81 MG ENTERIC TABLET PO (14:41)
[2024-02-04] MEDS: ATORVASTATIN 20 MG TABLET PO (14:41)
[2024-02-04] MEDS: AMOXICILLIN/CLAVULANATE K 500-125 MG TAB 1 TABLET PO ×2 (14:41→20:02)
[2024-02-04] MEDS: SEVELAMER CARBONATE 800 MG TABLET 1600 MG PO ×2 (14:42→17:24)
[2024-02-04] MEDS: polyethylene glycoL 3350 17 GM POWD.PACK PO (14:43)
[2024-02-04] MEDS: GABAPENTIN 300 MG CAPSULE PO (14:43)
--- NOTE | 2024-02-04 14:58 | PC.NURSE ---
Roopa Maldonado Help Desk Coordinator notified of bp 93/47 and holding metoprolol.
--- NOTE | 2024-02-04 15:30 | PC.NURSE ---
Dana Maldonado FILM CLEANER notified that patient has not had bowel movement for a week and is only on miralax.
--- NOTE | 2024-02-04 17:13 | WPDGIPROGNO ---
Progress Note: A&P Assessment and Plan (1) Cirrhosis: Qualifiers: Ascites presence: with ascites Hepatic cirrhosis type: unspecified hepatic cirrhosis Qualified Code(s): K74.60 - Unspecified cirrhosis of liver; R18.8 - Other ascites Code(s): K74.60 - Unspecified cirrhosis of liver Status: Acute Assessment and Plan: new diagnosis, ? 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 nutrition support consider EGD as outpatient to assess if portal htn will follow as needed (2) Abdominal ascites: Qualifiers: Ascites type: other type Qualified Code(s): R18.8 - Other ascites Code(s): R18.8 - Other ascites Status: Acute Assessment and Plan: s/p 5 liters removed he is on dialysis and use of diuretics will be challenging 2g na diet he can get paracentesis as needed increase RBC in fluid but no sbp however he is on abx because of pneumonia (3) ESRD (end stage renal disease): Code(s): N18.6 - End stage renal disease Status: Chronic Assessment and Plan: on dialysis (4) Elevated LFTs: Code(s): R79.89 - Other specified abnormal findings of blood chemistry Status: Acute (5) Sepsis: Qualifiers: Sepsis type: sepsis due to unspecified organism Sepsis acute organ dysfunction status: without acute organ dysfunction Qualified Code(s): A41.9 - Sepsis, unspecified organism Code(s): A41.9 - Sepsis, unspecified organism Status: Acute (6) Pneumonia: Qualifiers: Laterality: unspecified laterality Lung location: unspecified part of lung Pneumonia type: due to unspecified organism Qualified Code(s): J18.9 - Pneumonia, unspecified organism Code(s): J18.9 - Pneumonia, unspecified organism Status: Acute Assessment and Plan: on abx symptomatically better (7) Pleural effusion: Code(s): J90 - Pleural effusion, not elsewhere classified Status: Acute Assessment and Plan: better after thoracentesis Subjective Date/time seen: 02/04/24 17:13 Interval history: doing better today after 1L removed from left pleural effusion he is more comfortable Review of Systems Review of Systems: All systems reviewed & are unremarkable except as noted in HPI and below Exam Const: General: comfortable Other: chronically ill appearing HENMT: Face/Nose/Sinus: Normal nares present Eyes: General: appearance normal, both eyes and all related structures Neck: Neck: supple Resp: Auscultation: no crackles, rhonchi and diminished lung sounds Cardio: Rate: regular rate GI: GI Palp: Yes Soft to palpation and No Tenderness to palpation present (GI) Auscultation: normal bowel sounds Other: less fluid wave Skin: General skin exam: normal color Neuro: Speech: normal speech Motor exam (neuro): 5/5 motor strength present throughout Extrem: General: normal to inspection Psych: Affect: normal affect Objective Data Vital Signs Vital Signs: Vital Signs - 24 hr 02/03/24 20:27 02/03/24 20:27 02/03/24 20:34 Temperature Pulse Rate 85 90 Respiratory Rate 20 20 Blood Pressure Pulse Oximetry 94 Oxygen Delivery Room Air 02/03/24 20:38 02/03/24 20:00 02/03/24 20:00 Temperature Pulse Rate 89 92 Respiratory Rate Blood Pressure Pulse Oximetry Oxygen Delivery Room Air 02/03/24 21:01 02/04/24 00:00 02/04/24 01:25 Temperature 97.5 F L Pulse Rate 94 88 84 Respiratory Rate 16 18 Blood Pressure 93/57 L Pulse Oximetry 92 Oxygen Delivery 02/04/24 01:31 02/04/24 04:00 02/04/24 04:46 Temperature Pulse Rate 85 90 78 Respiratory Rate 18 18 Blood Pressure Pulse Oximetry Oxygen Delivery 02/04/24 05:02 02/04/24 06:00 02/04/24 07:53 Temperature 98.1 F Pulse Rate 83 89 Respiratory Rate 20 20 Blood Pressure 99/70 L Pulse Oximetry 94 Oxygen Delivery Room Air 02/04/24 08:00 02/04/24 08:00 02/04/24 08:25 Temper
[2024-02-04] MEDS: guaiFENesin 12 HR 600 MG TABCR PO (20:02)
[2024-02-05] VITALS (38 sets, daily range): BP systolic 88–109; BP diastolic 55–74; PULSE 77–102; RESP 16–20; TEMP 36.1–37; O2SAT 92–98
[2024-02-05] MEDS: IPRATROPIUM 0.5 MG/ALBUTEROL SULFATE 2.5 MG AMPUL.NEB 3 ML INHALATION ×3 (02:59→19:30)
[2024-02-05] MEDS: SODIUM CHLOR 3% 15 ML NEB (RESPIRATORY THERAPY) 6 ML INHALATION (05:18)
--- NOTE | 2024-02-05 07:33 | P.PNIM_ITS ---
Progress Note: A&P Assessment and Plan (1) Sepsis: Qualifiers: Sepsis acute organ dysfunction status: without acute organ dysfunction Sepsis type: sepsis due to unspecified organism Qualified Code(s): A41.9 - S epsis, unspecified organism Code(s): A41.9 - Sepsis, unspecified organism Status: Acute (2) Pneumonia: Qualifiers: Laterality: unspecified laterality Lung location: unspecified part of lung Pneumonia type: due to unspecified organism Qualified Code(s): J18.9 - Pneumonia, unspecified organism Code(s): J18.9 - Pneumonia, unspecified organism Status: Acute (3) Elevated troponin: Code(s): R79.89 - Other specified abnormal findings of blood chemistry Status: Acute (4) Cirrhosis: Qualifiers: Ascites presence: with ascites Hepatic cirrhosis type: unspecified hepatic cirrhosis Qualified Code(s): K74.60 - Unspecified cirrhosis of liver; R18.8 - Other ascites Code(s): K74.60 - Unspecified cirrhosis of liver Status: Acute (5) ESRD (end stage renal disease): Code(s): N18.6 - End stage renal disease Status: Chronic Plan Sepsis without septic shock-RESOLVING Secondary to pneumonia * empiric IV antibiotic therapy * Monitor lactic acid levels q6hr. WNL * Repeat CBC, CMP. * Two sets of blood cultures NGTD * C-reactive proteins * procalcitonin level. * PTT and PT, INR. * neuro status checks * Chest x-ray LT upper lobe pneumonia. * Monitor albumin, monitoring of mental status. ABD ascites/elevated liver enzymes * GI consulted * Paracentesis yield 5L * Hepatitis panel pending * No alcohol HX * MASH * Paracentesis PRN ESRD * Due to HX of renal carcinoma with LT nephrectomy * dialysis MWF * nephrology consulted * Avoid nephrotoxic drugs. * Monitor antihypertensive drug therapy. * Avoid NSAIDs. * Routine CMP monitoring GFR. * Monitor electrolytes especially potassium. * Antibiotic doses depending on creatinine clearance. * Pharmacy does medications. Pleural effusion/left upper lobe consolidation * Have some concern for malignancy * thoracentesis 02/03 * hold Eliquis * Is to send pleural studies 02/03: * Thoracentesis yielded 1000 mL of brown colored fluid with a pH >7.5 * Pleural studies pending 02/04: * Patient with increased SOB * CXR pending r/o pneumothorax * Oxygen PRN * duoneb Hypotension: * Chronic * Resumed midodrine HX HTN: Resumed home medications HX HLD: resumed statin HX AFIB: Holding Eliquis for procedure HX gout: Resume allopurinol Code status: DNR, surrogate decision maker Alvin Jimenez DVT prophylaxis: Eliquis Stress ulcer prophylaxis: Protonix 40 daily PT/OT notes: PT/OT evaluation SNF Disposition: Patient admitted to the medical unit with new onset ascites, pneu monia in left moderate pleural effusion patient underwent appearance T6 which yielded 5 L undergo a thoracentesis that yielded 1000ML. CC working on rehab placement approval to [facility] but having increased SOB today CXR pending but on RA. will re-evaluate for discharge tomorrow if improvement to respiratory status. Time Spent With Patient Time with patient: 15 - 25 minutes Subjective Date/time seen: 02/05/24 07:33 Interval history: Admission: Medical record Narrative: 83 y/o M presents here with shortness of breath, generalized weakness, and ground-level
--- NOTE | 2024-02-05 07:33 | PM.IMPN ---
Progress Note: A&P Assessment and Plan (1) Sepsis: Qualifiers: Sepsis acute organ dysfunction status: without acute organ dysfunction Sepsis type: sepsis due to unspecified organism Qualified Code(s): A41.9 - Sepsis, unspecified organism Code(s): A41.9 - Sepsis, unspecified organism Status: Acute (2) Pneumonia: Qualifiers: Laterality: unspecified laterality Lung location: unspecified part of lung Pneumonia type: due to unspecified organism Qualified Code(s): J18.9 - Pneumonia, unspecified organism Code(s): J18.9 - Pneumonia, unspecified organism Status: Acute (3) Elevated troponin: Code(s): R79.89 - Other specified abnormal findings of blood chemistry Status: Acute (4) Cirrhosis: Qualifiers: Ascites presence: with ascites Hepatic cirrhosis type: unspecified hepatic cirrhosis Qualified Code(s): K74.60 - Unspecified cirrhosis of liver; R18.8 - Other ascites Code(s): K74.60 - Unspecified cirrhosis of liver Status: Acute (5) ESRD (end stage renal disease): Code(s): N18.6 - End stage renal disease Status: Chronic Plan Sepsis without septic shock-RESOLVING Secondary to pneumonia empiric IV antibiotic therapy Monitor lactic acid levels q6hr. WNL Repeat CBC, CMP. Two sets of blood cultures NGTD C-reactive proteins procalcitonin level. PTT and PT, INR. neuro status checks Chest x-ray LT upper lobe pneumonia. Monitor albumin, monitoring of mental status. ABD ascites/elevated liver enzymes GI consulted Paracentesis yield 5L Hepatitis panel pending No alcohol HX MASH Paracentesis PRN ESRD Due to HX of renal carcinoma with LT nephrectomy dialysis [facility] nephrology consulted Avoid nephrotoxic drugs. Monitor antihypertensive drug therapy. Avoid NSAIDs. Routine CMP monitoring GFR. Monitor electrolytes especially potassium. Antibiotic doses depending on creatinine clearance. Pharmacy does medications. Pleural effusion/left upper lobe consolidation Have some concern for malignancy thoracentesis 02/03 hold Eliquis Is to send pleural studies 02/03: Thoracentesis yielded 1000 mL of brown colored fluid with a pH >7.5 Pleural studies pending 02/04: Patient with increased SOB CXR pending r/o pneumothorax Oxygen PRN duoneb Hypotension: Chronic Resumed midodrine HX HTN: Resumed home medications HX HLD: resumed statin HX AFIB: Holding Eliquis for procedure HX gout: Resume allopurinol Code status: DNR, surrogate decision maker Alvin Jimenez DVT prophylaxis: Eliquis Stress ulcer prophylaxis: Protonix 40 daily PT/OT notes: PT/OT evaluation SNF Disposition: Patient admitted to the medical unit with new onset ascites, pneumonia in left moderate pleural effusion patient underwent appearance T6 which yielded 5 L undergo a thoracentesis that yielded 1000ML. CC working on rehab placement approval to [place] but having increased SOB today CXR pending but on RA. will re-evaluate for discharge tomorrow if improvement to respiratory status. Time Spent With Patient Time with patient: 15 - 25 minutes Subjective Date/time seen: 02/05/24 07:33 Interval history: Admission: Medical record Narrative: 83 y/o M presents here with shortness of breath, generalized weakness, and ground-level fall with PMH of renal cell carcinoma (s/p left nephrectomy), AFib, CAD, ESRD on HD (MWF), and HLD. The patient presents here for further evaluation of shortness of breath, generalized weakness, fatigue, and worsening abdominal distension over the past 6 months. However, the shortness of breath has significantly worsened over the last week and accompanied by a intermittently productive cough yielding green sputum. No associated fever chills, body aches. He reports the abdominal distention started over the winter and has been slowly progressing. Now acco
[2024-02-05] MEDS: MIDODRINE HCL 10 MG TABLET PO ×2 (07:36→17:03)
--- NOTE | 2024-02-05 08:16 | PC.NURSE ---
Patient to dialysis at 0745. Midodrine given prior to leaving floor per request of dialysis nurse
[2024-02-05 08:23] LABS: Basophils Absolute Auto 0.1 K/mm3 (0.0-0.1); Basophils Percent Auto 0.7 % (0.2-1.2); Eosinophils Absolute Auto 0.1 K/mm3 (0-0.3); Eosinophils Percent Auto 1.7 % (0-4.4); Hematocrit 34.6 % (42.0-52.0); Hemoglobin 11.7 g/dL (14.0-18.0); Immature Granulocyte Absolute 0.03 K/mm3 (0.00-0.031); Immature Granulocyte Percent A 0.4 % (0-0.5); Lymphocytes Absolute Auto 0.51 K/mm3 (0.9-3.2); Lymphocytes Percent Auto 7.4 % (18.3-44.2); Mean Corpuscular HGB Conc 33.8 g/dl (32-36); Mean Corpuscular Hemoglobin 34.4 pg (26-34); Mean Corpuscular Volume 101.8 fl (80-100); Mean Platelet Volume 9.8 fl (7.4-10.4); Monocytes Percent Auto 14.4 % (2.6-8.5); Neutrophils Absolute Auto 5.2 K/mm3 (1.3-6.7); Neutrophils Percent Auto 75.4 % (45.5-73.1); Platelet Count Result 214 k/mm3 (150-375); Red Cell Distribution Width 15.1 % (11.5-14.5); White Blood Count 6.9 K/mm3 (4.5-10.0)
[2024-02-05] MEDS: HEPARIN SODIUM 1,000 UNITS/ML VIAL 3000 UNITS (08:29)
[2024-02-05] MEDS: ALBUMIN HUMAN 25% 12.5 GM/50ML 50 ML IVPB (08:30)
--- NOTE | 2024-02-05 08:31 | PCRCNOTE ---
pt not in room for 8am tx
[2024-02-05 08:40] LABS: Alanine Aminotransferase 28 U/L (6-50); Albumin Level 3.5 g/dL (3.5-5.1); Alkaline Phosphatase 204 U/L (38-126); Anion Gap 13 mmol/L (4-12); Aspartate Amino Transferase 42 U/L (17-59); Bilirubin,Total 2.2 mg/dL (0.2-1.3); Blood Urea Nitrogen 59 mg/dL (9-20); Calcium 9.6 mg/dL (8.4-10.2); Carbon Dioxide 25 mmol/L (22-30); Chloride 96 mmol/L (98-107); Estimated CRCL calculation 9 ml/min; Estimated Glomerular Filt Rate 7; Glucose 102 mg/dL (65-110); Potassium 4.2 mmol/L (3.4-5.0); Sodium 134 mmol/L (137-145)
--- NOTE | 2024-02-05 09:31 | PCOTNOTE ---
Patient out of the room at this time. Patient is in dialysis this A.M.
--- NOTE | 2024-02-05 09:34 | PCNWS ---
Weekly nutritional screen. Patient is tolerating current diet with adequate intake. No weight loss reported. No nutritional needs at this time.
--- NOTE | 2024-02-05 10:06 | PCPTNOTE ---
Attempted to see pt at 9:47am; unable to due to being at Dialysis at this time.
--- NOTE | 2024-02-05 10:08 | P.PNNP_ITS ---
Progress Note: A&P Assessment and Plan (1) ESRD (end stage renal disease): Code(s): N18.6 - End stage renal disease Status: Chronic Assessment and Plan: * HD under way * continue dialysis schedule of Thu/Thu/Thursday while hospitalized * follow electrolytes, volume status, and clearance * Will check a chest x-ray later today and see how he feels tomorrow. Consider another dry ultrafiltration if he is still short of breath. (2) Shortness of breath: Code(s): R06.02 - Shortness of breath Status: Acute Assessment and Plan: * clinical improvement noted * presumably due to pulmonary edema + pneumonia + ascites * s/p DUF on 01/30 for further fluid removal * s/p large volume paracentesis on 01/31 * s/p thoracentesis on 02/03 * On oral Augmentin * Check a chest x-ray later today after fluid is removed. (3) Pneumonia: Qualifiers: Laterality: unspecified laterality Lung location: unspecified part of lung Pneumonia type: due to unspecified organism Qualified Code(s): J18.9 - Pneumonia, unspecified organism Code(s): J18.9 - Pneumonia, unspecified organism Status: Acute Assessment and Plan: * as noted by CT of chest * COVID/RSV/influenza studies negative * s/p thoracentesis today * on Augmentin (4) Elevated troponin: Code(s): R79.89 - Other specified abnormal findings of blood chemistry Status: Acute Assessment and Plan: * as noted * Cardiology recommendations noted * already on anticoagulation (5) Cirrhosis: Qualifiers: Ascites presence: with ascites Hepatic cirrhosis type: unspecified hepatic cirrhosis Qualified Code(s): K74.60 - Unspecified cirrhosis of liver; R18.8 - Other ascites Code(s): K74.60 - Unspecified cirrhosis of liver Status: Acute Assessment and Plan: * fairly new finding * nored outpatient abdominal ultrasound (on 01/29): * 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 * s/p diagnostic and therapeutic paracentesis on 01/31 * GI following (6) Hypotension: Code(s): I95.9 - Hypotension, unspecified Status: Acute Assessment and Plan: * chronic issue * on midodrine therapy as an outpatient * Getting albumin with dialysis Subjective Date/time seen: 02/05/24 10:08 Interval history: Patient had some sort of a ?breathing test today. And has been a little short of breath since then. He is sitting in semi-Aaron's position with mild dyspnea. Dialysis nurse put him on oxygen and that made him feel a little better. The patient is on dialysis and tolerating it well. He is getting albumin for blood pressure support. Going for about 2500cc net. He was seen at 9:50 a.m. Exam Narrative: General: elderly but WD/WN male in NAD Heart: normal S1 and S2; no rub Lungs: coarse with increased expiratory phase and decreased at bases Abdomen: soft, nontender, less distension; positive bowel sounds Extremities: no cyanosis or clubbing; trace edema Skin: no nodules Objective Data Vital Signs Vital Signs: Vital Signs - 24 hr 02/04/24 12:00 02/04/24 15:04 02/04/24 15:14 Temperature Pulse Rate 85 91 90 Respiratory Rate 16 16 Blood Pressure Pulse Oximetry Oxygen Delivery 02/04/24 14:00 02/04/24 16:00 02/04/24 19:51
--- NOTE | 2024-02-05 10:08 | PM.PNNEP ---
Progress Note: A&P Assessment and Plan (1) ESRD (end stage renal disease): Code(s): N18.6 - End stage renal disease Status: Chronic Assessment and Plan: HD under way continue dialysis schedule of Thu/Thu/Thursday while hospitalized follow electrolytes, volume status, and clearance Will check a chest x-ray later today and see how he feels tomorrow. Consider another dry ultrafiltration if he is still short of breath. (2) Shortness of breath: Code(s): R06.02 - Shortness of breath Status: Acute Assessment and Plan: clinical improvement noted presumably due to pulmonary edema + pneumonia + ascites s/p DUF on 01/30 for further fluid removal s/p large volume paracentesis on 01/31 s/p thoracentesis on 02/03 On oral Augmentin Check a chest x-ray later today after fluid is removed. (3) Pneumonia: Qualifiers: Laterality: unspecified laterality Lung location: unspecified part of lung Pneumonia type: due to unspecified organism Qualified Code(s): J18.9 - Pneumonia, unspecified organism Code(s): J18.9 - Pneumonia, unspecified organism Status: Acute Assessment and Plan: as noted by CT of chest COVID/RSV/influenza studies negative s/p thoracentesis today on Augmentin (4) Elevated troponin: Code(s): R79.89 - Other specified abnormal findings of blood chemistry Status: Acute Assessment and Plan: as noted Cardiology recommendations noted already on anticoagulation (5) Cirrhosis: Qualifiers: Ascites presence: with ascites Hepatic cirrhosis type: unspecified hepatic cirrhosis Qualified Code(s): K74.60 - Unspecified cirrhosis of liver; R18.8 - Other ascites Code(s): K74.60 - Unspecified cirrhosis of liver Status: Acute Assessment and Plan: fairly new finding nored outpatient abdominal ultrasound (on 01/29): 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 s/p diagnostic and therapeutic paracentesis on 01/31 GI following (6) Hypotension: Code(s): I95.9 - Hypotension, unspecified Status: Acute Assessment and Plan: chronic issue on midodrine therapy as an outpatient Getting albumin with dialysis Subjective Date/time seen: 02/05/24 10:08 Interval history: Patient had some sort of a ?breathing test today. And has been a little short of breath since then. He is sitting in semi-Aaron's position with mild dyspnea. Dialysis nurse put him on oxygen and that made him feel a little better. The patient is on dialysis and tolerating it well. He is getting albumin for blood pressure support. Going for about 2500cc net. He was seen at 9:50 a.m. Exam Narrative: General: elderly but WD/WN male in NAD Heart: normal S1 and S2; no rub Lungs: coarse with increased expiratory phase and decreased at bases Abdomen: soft, nontender, less distension; positive bowel sounds Extremities: no cyanosis or clubbing; trace edema Skin: no nodules Objective Data Vital Signs Vital Signs: Vital Signs - 24 hr 02/04/24 12:00 02/04/24 15:04 02/04/24 15:14 Temperature Pulse Rate 85 91 90 Respiratory Rate 16 16 Blood Pressure Pulse Oximetry Oxygen Delivery 02/04/24 14:00 02/04/24 16:00 02/04/24 19:51 Temperature 97.5 F L 97.5 F L Pulse Rate 72 91 85 Respiratory Rate 16 18 Blood Pressure 93/57 L 87/62 L Pulse Oximetry 92 94 Oxygen Delivery 02/04/24 20:09 02/04/24 20:09 02/04/24 20:16 Temperature Pulse Rate 83 85 Respiratory Rate 18 18 Blood Pressure Pulse Oximetry 95 Oxygen Delivery Room Air 02/04/24 20:00 02/05/24 00:13 02/05/24 00:00 Temperature Pulse Rate 92 83 Respiratory Rate Blood Pressure 88/58 L Pulse Oximetry Oxygen Delivery 02/05/24 02:59 02/05/24 03:04 02/05/24 04:00 Temperature Pulse Rate 77 88 78 Respiratory Rate 20 20 Blood Press
[2024-02-05] MEDS: guaiFENesin 12 HR 600 MG TABCR PO ×2 (13:02→20:35)
[2024-02-05] MEDS: GABAPENTIN 300 MG CAPSULE PO (13:02)
[2024-02-05] MEDS: ATORVASTATIN 20 MG TABLET PO (13:02)
[2024-02-05] MEDS: ASPIRIN 81 MG ENTERIC TABLET PO (13:02)
[2024-02-05] MEDS: polyethylene glycoL 3350 17 GM POWD.PACK PO (13:03)
[2024-02-05] MEDS: SEVELAMER CARBONATE 800 MG TABLET 1600 MG PO ×2 (13:03→17:03)
[2024-02-05] MEDS: allopurinoL 150 MG TABLET PO (13:04)
[2024-02-05] MEDS: AMOXICILLIN/CLAVULANATE K 500-125 MG TAB 1 TABLET PO ×2 (13:05→17:03)
--- NOTE | 2024-02-05 13:42 | PC.NURSE ---
Hospitlaist called regarding patient BP. Morning dose of metoprolol held.
--- NOTE | 2024-02-05 17:04 | PC.NURSE ---
Patient accidently drop 1300 midodrine dose in bed unknowingly. Tablet was found just before 1700 dose so non administered the 1300 dose and gave the 1700 dose
[2024-02-05] MEDS: METOPROLOL TARTRATE 12.5 MG TABLET PO (20:35)
[2024-02-05] MEDS: guaiFENesin/DEXTROMETHORPHAN 10 ML UDC 5 ML PO (21:52)
[2024-02-06] VITALS (30 sets, daily range): BP systolic 90–109; BP diastolic 53–73; PULSE 69–92; RESP 16–24; TEMP 36.4–37.1; O2SAT 93–98
[2024-02-06] MEDS: IPRATROPIUM 0.5 MG/ALBUTEROL SULFATE 2.5 MG AMPUL.NEB 3 ML INHALATION ×4 (02:15→20:06)
[2024-02-06] MEDS: SODIUM CHLOR 3% 15 ML NEB (RESPIRATORY THERAPY) 6 ML INHALATION (04:57)
--- NOTE | 2024-02-06 05:59 | PCRCNOTE ---
sputum sample obtained; RN sent to lab
[2024-02-06 06:05] LABS: Albumin Level 3.4 g/dL (3.5-5.1); Anion Gap 8 mmol/L (4-12); Blood Urea Nitrogen 41 mg/dL (9-20); Calcium 9.7 mg/dL (8.4-10.2); Carbon Dioxide 30 mmol/L (22-30); Chloride 99 mmol/L (98-107); Estimated CRCL calculation 11 ml/min; Estimated Glomerular Filt Rate 9; Glucose 103 mg/dL (65-110); Phosphorus 4.4 mg/dL (2.5-4.5); Potassium 4.1 mmol/L (3.4-5.0); Sodium 137 mmol/L (137-145)
[2024-02-06] MEDS: GABAPENTIN 300 MG CAPSULE PO (08:01)
[2024-02-06] MEDS: guaiFENesin 12 HR 600 MG TABCR PO ×2 (08:01→20:41)
[2024-02-06] MEDS: AMOXICILLIN/CLAVULANATE K 500-125 MG TAB 1 TABLET PO ×2 (08:01→17:06)
[2024-02-06] MEDS: allopurinoL 150 MG TABLET PO (08:01)
[2024-02-06] MEDS: SEVELAMER CARBONATE 800 MG TABLET 1600 MG PO ×3 (08:01→17:06)
[2024-02-06] MEDS: ATORVASTATIN 20 MG TABLET PO (08:01)
[2024-02-06] MEDS: MIDODRINE HCL 10 MG TABLET PO ×3 (08:01→17:06)
[2024-02-06] MEDS: ASPIRIN 81 MG ENTERIC TABLET PO (08:01)
[2024-02-06] MEDS: polyethylene glycoL 3350 17 GM POWD.PACK PO (08:01)
[2024-02-06] MEDS: guaiFENesin/DEXTROMETHORPHAN 10 ML UDC 5 ML PO ×2 (08:54→20:43)
--- NOTE | 2024-02-06 09:39 | PC.NURSE ---
Patient transported to dialysis at this time via bed
[2024-02-06] MEDS: APIXABAN 2.5 MG TABLET PO ×2 (09:42→20:41)
--- NOTE | 2024-02-06 09:44 | PCPTNOTE ---
9:45 just left for dialysis.
--- NOTE | 2024-02-06 11:58 | P.PNNP_ITS ---
Progress Note: A&P Assessment and Plan (1) ESRD (end stage renal disease): Code(s): N18.6 - End stage renal disease Status: Chronic Assessment and Plan: * HD under way * continue dialysis schedule of Thu/Thu/Thursday while hospitalized * getting a dry ultrafiltration now. * He is doing well with this. (2) Shortness of breath: Code(s): R06.02 - Shortness of breath Status: Acute Assessment and Plan: * Gradually better with fluid removal. * s/p large volume paracentesis on 01/31 * s/p thoracentesis on 02/03 * On oral Augmentin * Check a chest x-ray later today after fluid is removed. (3) Pneumonia: Qualifiers: Laterality: unspecified laterality Lung location: unspecified part of lung Pneumonia type: due to unspecified organism Qualified Code(s): J18.9 - Pneumonia, unspecified organism Code(s): J18.9 - Pneumonia, unspecified organism Status: Acute Assessment and Plan: * as noted by CT of chest * COVID/RSV/influenza studies negative * s/p thoracentesis today * on Augmentin (4) Elevated troponin: Code(s): R79.89 - Other specified abnormal findings of blood chemistry Status: Acute Assessment and Plan: * as noted * Cardiology recommendations noted * already on anticoagulation (5) Cirrhosis: Qualifiers: Ascites presence: with ascites Hepatic cirrhosis type: unspecified hepatic cirrhosis Qualified Code(s): K74.60 - Unspecified cirrhosis of liver; R18.8 - Other ascites Code(s): K74.60 - Unspecified cirrhosis of liver Status: Acute Assessment and Plan: * fairly new finding * nored outpatient abdominal ultrasound (on 01/29): * 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 * s/p diagnostic and therapeutic paracentesis on 01/31 * GI following (6) Hypotension: Code(s): I95.9 - Hypotension, unspecified Status: Acute Assessment and Plan: * chronic issue * on midodrine therapy here and will be at home. * His blood pressure dropped with metoprolol last night. Will reduce the dose to 6.25 Subjective Date/time seen: 02/06/24 11:58 Interval history: patient feels a little better. He is still a little bit this make but is not on oxygen. Chest x-ray did show some based apex redistribution. We chose to do another dry ultrafiltration to take a little more fluid off. He is on this process now. He was seen at 11:10 a.m. Exam Narrative: General: elderly but WD/WN male in NAD Heart: normal S1 and S2; no rub or gallop Lungs: coarse with increased expiratory phase and decreased at bases Abdomen: soft, nontender, less distension; positive bowel sounds Extremities: no cyanosis or clubbing; trace edema Skin: no nodules or rash Objective Data Vital Signs Vital Signs: Vital Signs - 24 hr 02/05/24 12:15 02/05/24 13:19 02/05/24 13:20 Temperature 97.3 F L Pulse Rate 93 90 Respiratory Rate 20 20 Blood Pressure 96/67 L Pulse Oximetry 96 97 Oxygen Delivery Room Air 02/05/24 12:00 02/05/24 13:26 02/05/24 13:37 Temperature 97.0 F L Pulse Rate 96 92 92 Respiratory Rate 20 16 Blood Pressure 91/55 L Pulse Oximetry 96 Oxygen Delivery
--- NOTE | 2024-02-06 11:58 | PM.PNNEP ---
Progress Note: A&P Assessment and Plan (1) ESRD (end stage renal disease): Code(s): N18.6 - End stage renal disease Status: Chronic Assessment and Plan: HD under way continue dialysis schedule of Thu/Thu/Thursday while hospitalized getting a dry ultrafiltration now. He is doing well with this. (2) Shortness of breath: Code(s): R06.02 - Shortness of breath Status: Acute Assessment and Plan: Gradually better with fluid removal. s/p large volume paracentesis on 01/31 s/p thoracentesis on 02/03 On oral Augmentin Check a chest x-ray later today after fluid is removed. (3) Pneumonia: Qualifiers: Laterality: unspecified laterality Lung location: unspecified part of lung Pneumonia type: due to unspecified organism Qualified Code(s): J18.9 - Pneumonia, unspecified organism Code(s): J18.9 - Pneumonia, unspecified organism Status: Acute Assessment and Plan: as noted by CT of chest COVID/RSV/influenza studies negative s/p thoracentesis today on Augmentin (4) Elevated troponin: Code(s): R79.89 - Other specified abnormal findings of blood chemistry Status: Acute Assessment and Plan: as noted Cardiology recommendations noted already on anticoagulation (5) Cirrhosis: Qualifiers: Ascites presence: with ascites Hepatic cirrhosis type: unspecified hepatic cirrhosis Qualified Code(s): K74.60 - Unspecified cirrhosis of liver; R18.8 - Other ascites Code(s): K74.60 - Unspecified cirrhosis of liver Status: Acute Assessment and Plan: fairly new finding nored outpatient abdominal ultrasound (on 01/29): 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 s/p diagnostic and therapeutic paracentesis on 01/31 GI following (6) Hypotension: Code(s): I95.9 - Hypotension, unspecified Status: Acute Assessment and Plan: chronic issue on midodrine therapy here and will be at home. His blood pressure dropped with metoprolol last night. Will reduce the dose to 6.25 Subjective Date/time seen: 02/06/24 11:58 Interval history: patient feels a little better. He is still a little bit this make but is not on oxygen. Chest x-ray did show some based apex redistribution. We chose to do another dry ultrafiltration to take a little more fluid off. He is on this process now. He was seen at 11:10 a.m. Exam Narrative: General: elderly but WD/WN male in NAD Heart: normal S1 and S2; no rub or gallop Lungs: coarse with increased expiratory phase and decreased at bases Abdomen: soft, nontender, less distension; positive bowel sounds Extremities: no cyanosis or clubbing; trace edema Skin: no nodules or rash Objective Data Vital Signs Vital Signs: Vital Signs - 24 hr 02/05/24 12:15 02/05/24 13:19 02/05/24 13:20 Temperature 97.3 F L Pulse Rate 93 90 Respiratory Rate 20 20 Blood Pressure 96/67 L Pulse Oximetry 96 97 Oxygen Delivery Room Air 02/05/24 12:00 02/05/24 13:26 02/05/24 13:37 Temperature 97.0 F L Pulse Rate 96 92 92 Respiratory Rate 20 16 Blood Pressure 91/55 L Pulse Oximetry 96 Oxygen Delivery 02/05/24 16:00 02/05/24 19:33 02/05/24 19:33 Temperature Pulse Rate 95 96 Respiratory Rate 20 Blood Pressure Pulse Oximetry 92 Oxygen Delivery Room Air 02/05/24 19:43 02/05/24 20:35 02/05/24 20:00 Temperature Pulse Rate 99 100 102 H Respiratory Rate 20 Blood Pressure Pulse Oximetry Oxygen Delivery 02/05/24 20:00 02/05/24 22:00 02/06/24 00:00 Temperature 97.5 F L Pulse Rate 102 H 79 Respiratory Rate 16 Blood Pressure 104/70 Pulse Oximetry 95 Oxygen Delivery Room Air 02/06/24 02:16 02/06/24 04:00 02/06/24 02:26 Temperature Pulse Rate 90 75 92 Respiratory Rate 20 20 Blood Pressure Pulse Oximetry Oxygen Del
--- NOTE | 2024-02-06 12:38 | PC.NURSE ---
Patient back to room from dialysis via bed.
--- NOTE | 2024-02-06 13:25 | P.PNIM_ITS ---
Progress Note: A&P Assessment and Plan (1) Sepsis: Qualifiers: Sepsis type: sepsis due to unspecified organism Sepsis acute organ dysfunction status: without acute organ dysfunction Qualified Code(s): A41.9 - Sepsis, unspecified organism Code(s): A41.9 - Sepsis, unspecified organism Status: Acute (2) Pneumonia: Qualifiers: Laterality: unspecified laterality Lung location: unspecified part of lung Pneumonia type: due to unspecified organism Qualified Code(s): J18.9 - Pneumonia, unspecified organism Code(s): J18.9 - Pneumonia, unspecified organism Status: Acute (3) Elevated troponin: Code(s): R79.89 - Other specified abnormal findings of blood chemistry Status: Acute (4) Cirrhosis: Qualifiers: Ascites presence: with ascites Hepatic cirrhosis type: unspecified hepatic cirrhosis Qualified Code(s): K74.60 - Unspecified cirrhosis of liver; R18.8 - Other ascites Code(s): K74.60 - Unspecified cirrhosis of liver Status: Acute (5) ESRD (end stage renal disease): Code(s): N18.6 - End stage renal disease Status: Chronic Plan Sepsis without septic shock-RESOLVING Secondary to pneumonia * empiric IV antibiotic therapy * Monitor lactic acid levels q6hr. WNL * Repeat CBC, CMP. * Two sets of blood cultures NGTD * C-reactive proteins * procalcitonin level. * PTT and PT, INR. * neuro status checks * Chest x-ray LT upper lobe pneumonia. * Monitor albumin, monitoring of mental status. * Incentive spirometer ABD ascites/elevated liver enzymes * GI consulted * Paracentesis yield 5L * Hepatitis panel pending * No alcohol HX * MASH * Paracentesis PRN ESRD * Due to HX of renal carcinoma with LT nephrectomy * dialysis MWF * nephrology consulted * Avoid nephrotoxic drugs. * Monitor antihypertensive drug therapy. * Avoid NSAIDs. * Routine CMP monitoring GFR. * Monitor electrolytes especially potassium. * Antibiotic doses depending on creatinine clearance. * Pharmacy does medications. 02/05: * Dialysis * CXR to follow Pleural effusion/left upper lobe consolidation * Have some concern for malignancy * thoracentesis 02/03 * hold Eliquis * Is to send pleural studies 02/03: * Thoracentesis yielded 1000 mL of brown colored fluid with a pH >7.5 * Pleural studies pending 02/04: * Patient with increased SOB * CXR pending r/o pneumothorax * Oxygen PRN * duoneb Hypotension: * Chronic * Resumed midodrine HX HTN: Resumed home medications HX HLD: resumed statin HX AFIB: Holding Eliquis for procedure HX gout: Resume allopurinol Code status: DNR, surrogate decision maker Alvin Jimenez DVT prophylaxis: Eliquis Stress ulcer prophylaxis: Protonix 40 daily PT/OT notes: PT/OT evaluation SNF Disposition: Patient admitted to the medical unit with new onset ascites, pneumonia in left moderate pleural effusion patient underwent appearance T6 which yielded 5 L undergo a thoracentesis that yielded 1000ML. accepted to [facility] will get dialysis and CXR today plan for discharge tomorrow. Time Spent With Patient Time with patient: 15 - 25 minutes Subjective Date/time seen: 02/06/24 13:25 Interval history: Admission: Medical record Narrative: 83 y/o M presents here with shortness of breath, generalized weakness, and ground-level fall with PMH of renal ce
--- NOTE | 2024-02-06 13:25 | PM.IMPN ---
Progress Note: A&P Assessment and Plan (1) Sepsis: Qualifiers: Sepsis type: sepsis due to unspecified organism Sepsis acute organ dysfunction status: without acute organ dysfunction Qualified Code(s): A41.9 - Sepsis, unspecified organism Code(s): A41.9 - Sepsis, unspecified organism Status: Acute (2) Pneumonia: Qualifiers: Laterality: unspecified laterality Lung location: unspecified part of lung Pneumonia type: due to unspecified organism Qualified Code(s): J18.9 - Pneumonia, unspecified organism Code(s): J18.9 - Pneumonia, unspecified organism Status: Acute (3) Elevated troponin: Code(s): R79.89 - Other specified abnormal findings of blood chemistry Status: Acute (4) Cirrhosis: Qualifiers: Ascites presence: with ascites Hepatic cirrhosis type: unspecified hepatic cirrhosis Qualified Code(s): K74.60 - Unspecified cirrhosis of liver; R18.8 - Other ascites Code(s): K74.60 - Unspecified cirrhosis of liver Status: Acute (5) ESRD (end stage renal disease): Code(s): N18.6 - End stage renal disease Status: Chronic Plan Sepsis without septic shock-RESOLVING Secondary to pneumonia empiric IV antibiotic therapy Monitor lactic acid levels q6hr. WNL Repeat CBC, CMP. Two sets of blood cultures NGTD C-reactive proteins procalcitonin level. PTT and PT, INR. neuro status checks Chest x-ray LT upper lobe pneumonia. Monitor albumin, monitoring of mental status. 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 Monitor antihypertensive drug therapy. Avoid NSAIDs. Routine CMP monitoring GFR. Monitor electrolytes especially potassium. Antibiotic doses depending on creatinine clearance. Pharmacy does medications. 02/05: Dialysis CXR to follow Pleural effusion/left upper lobe consolidation Have some concern for malignancy thoracentesis 02/03 hold Samis Is to send pleural studies 02/03: Thoracentesis yielded 1000 mL of brown colored fluid with a pH >7.5 Pleural studies pending 02/04: Patient with increased SOB CXR pending r/o pneumothorax Oxygen PRN duoneb Hypotension: Chronic Resumed midodrine HX HTN: Resumed home medications HX HLD: resumed statin HX AFIB: Holding Eliquis for procedure HX gout: Resume allopurinol Code status: DNR, surrogate decision maker Alvin Jimenez DVT prophylaxis: Eliquis Stress ulcer prophylaxis: Protonix 40 daily PT/OT notes: PT/OT evaluation SNF Disposition: Patient admitted to the medical unit with new onset ascites, pneumonia in left moderate pleural effusion patient underwent appearance T6 which yielded 5 L undergo a thoracentesis that yielded 1000ML. [facility] and CXR today plan for discharge tomorrow. Time Spent With Patient Time with patient: 15 - 25 minutes Subjective Date/time seen: 02/06/24 13:25 Interval history: Admission: Medical record Narrative: 83 y/o M presents here with shortness of breath, generalized weakness, and ground-level fall with PMH of renal cell carcinoma (s/p left nephrectomy), AFib, CAD, ESRD on HD (MWF), and HLD. The patient presents here for further evaluation of shortness of breath, generalized weakness, fatigue, and worsening abdominal distension over the past 6 months. However, the shortness of breath has significantly worsened over the last week and accompanied by a intermittently productive cough yielding green sputum. No associated fever chills, body aches. He reports the abdominal distention started over the winter and has been slowly progressing. Now accompanied by early satiety. Patient
[2024-02-06 19:59] LABS: LDH Peritoneal Fluid 201 U/L (<63)
[2024-02-06] MEDS: METOPROLOL TARTRATE 6.25 MG TABLET PO (20:41)
[2024-02-07] VITALS (12 sets, daily range): BP systolic 91; BP diastolic 57; PULSE 69–98; RESP 18; TEMP 36.2; O2SAT 98–100
[2024-02-07] MEDS: IPRATROPIUM 0.5 MG/ALBUTEROL SULFATE 2.5 MG AMPUL.NEB 3 ML INHALATION ×3 (02:39→13:00)
[2024-02-07 05:57] LABS: Albumin Level 3.3 g/dL (3.5-5.1); Anion Gap 12 mmol/L (4-12); Blood Urea Nitrogen 57 mg/dL (9-20); Calcium 9.5 mg/dL (8.4-10.2); Carbon Dioxide 26 mmol/L (22-30); Chloride 98 mmol/L (98-107); Estimated CRCL calculation 8 ml/min; Estimated Glomerular Filt Rate 7; Glucose 102 mg/dL (65-110); Phosphorus 4.6 mg/dL (2.5-4.5); Sodium 136 mmol/L (137-145)
[2024-02-07] MEDS: MIDODRINE HCL 10 MG TABLET PO ×2 (09:08→12:49)
[2024-02-07] MEDS: ASPIRIN 81 MG ENTERIC TABLET PO (09:08)
[2024-02-07] MEDS: ATORVASTATIN 20 MG TABLET PO (09:09)
[2024-02-07] MEDS: SEVELAMER CARBONATE 800 MG TABLET 1600 MG PO ×2 (09:09→12:46)
[2024-02-07] MEDS: guaiFENesin 12 HR 600 MG TABCR PO (09:09)
[2024-02-07] MEDS: GABAPENTIN 300 MG CAPSULE PO (09:09)
[2024-02-07] MEDS: APIXABAN 2.5 MG TABLET PO (09:10)
[2024-02-07] MEDS: polyethylene glycoL 3350 17 GM POWD.PACK PO (09:10)
[2024-02-07] MEDS: allopurinoL 150 MG TABLET PO (09:10)
[2024-02-07] MEDS: METOPROLOL TARTRATE 6.25 MG TABLET PO (09:10)
[2024-02-07] MEDS: AMOXICILLIN/CLAVULANATE K 500-125 MG TAB 1 TABLET PO (09:12)
[2024-02-07] MEDS: guaiFENesin/DEXTROMETHORPHAN 10 ML UDC 5 ML PO (09:15)
--- NOTE | 2024-02-07 09:26 | P.PNNP_ITS ---
Progress Note: A&P Assessment and Plan (1) ESRD (end stage renal disease): Code(s): N18.6 - End stage renal disease Status: Chronic Assessment and Plan: * HD Due tomorrow * he looks okay for today. * Electrolytes and BUN okay (2) Shortness of breath: Code(s): R06.02 - Shortness of breath Status: Acute Assessment and Plan: * Gradually better with fluid removal. * s/p large volume paracentesis on 01/31 * s/p thoracentesis on 02/03 * On oral Augmentin * sounds much better on exam and he feels good. (3) Pneumonia: Qualifiers: Laterality: unspecified laterality Lung location: unspecified part of lung Pneumonia type: due to unspecified organism Qualified Code(s): J18.9 - Pneumonia, unspecified organism Code(s): J18.9 - Pneumonia, unspecified organism Status: Acute Assessment and Plan: * as noted by CT of chest * COVID/RSV/influenza studies negative * s/p thoracentesis today * on Augmentin (4) Elevated troponin: Code(s): R79.89 - Other specified abnormal findings of blood chemistry Status: Acute Assessment and Plan: * as noted * Cardiology recommendations noted * already on anticoagulation (5) Cirrhosis: Qualifiers: Ascites presence: with ascites Hepatic cirrhosis type: unspecified hepatic cirrhosis Qualified Code(s): K74.60 - Unspecified cirrhosis of liver; R18.8 - Other ascites Code(s): K74.60 - Unspecified cirrhosis of liver Status: Acute Assessment and Plan: * fairly new finding * nored outpatient abdominal ultrasound (on 01/29): * 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 * s/p diagnostic and therapeutic paracentesis on 01/31 * GI following (6) Hypotension: Code(s): I95.9 - Hypotension, unspecified Status: Acute Assessment and Plan: * chronic issue * Systolic is only 91 this morning. * on midodrine * Systolic generally runs in the 90s and low 100s. Subjective Date/time seen: 02/07/24 09:26 Interval history: Patient feels okay. Eager for discharge. Breathing is much better Exam Narrative: General: elderly but WD/WN male in NAD Heart: normal S1 and S2; no rub or gallop Lungs: more clear today. Abdomen: soft, nontender, less distension; positive bowel sounds Extremities: no cyanosis or clubbing; trace edema Skin: no rash Objective Data Vital Signs Vital Signs: Vital Signs - 24 hr 02/06/24 09:47 02/06/24 10:02 02/06/24 10:15 Temperature 98.7 F Pulse Rate 89 85 87 Respiratory Rate 24 H Blood Pressure 109/65 101/65 106/73 Pulse Oximetry Oxygen Delivery 02/06/24 11:00 02/06/24 11:15 02/06/24 12:02 Temperature Pulse Rate 87 78 80 Respiratory Rate Blood Pressure 100/58 L 94/58 L 99/62 L Pulse Oximetry Oxygen Delivery 02/06/24 12:07 02/06/24 10:30 02/06/24 10:45 Temperature 97.9 F Pulse Rate 85 82 84 Respiratory Rate 24 H Blood Pressure 99/64 L 93/67 L 103/62 Pulse Oximetry 94 Oxygen Delivery 02/06/24 11:30 02/06/24 11:45 02/06/24 12:00 Temperature
--- NOTE | 2024-02-07 09:26 | PM.PNNEP ---
Progress Note: A&P Assessment and Plan (1) ESRD (end stage renal disease): Code(s): N18.6 - End stage renal disease Status: Chronic Assessment and Plan: HD Due tomorrow he looks okay for today. Electrolytes and BUN okay (2) Shortness of breath: Code(s): R06.02 - Shortness of breath Status: Acute Assessment and Plan: Gradually better with fluid removal. s/p large volume paracentesis on 01/31 s/p thoracentesis on 02/03 On oral Augmentin sounds much better on exam and he feels good. (3) Pneumonia: Qualifiers: Laterality: unspecified laterality Lung location: unspecified part of lung Pneumonia type: due to unspecified organism Qualified Code(s): J18.9 - Pneumonia, unspecified organism Code(s): J18.9 - Pneumonia, unspecified organism Status: Acute Assessment and Plan: as noted by CT of chest COVID/RSV/influenza studies negative s/p thoracentesis today on Augmentin (4) Elevated troponin: Code(s): R79.89 - Other specified abnormal findings of blood chemistry Status: Acute Assessment and Plan: as noted Cardiology recommendations noted already on anticoagulation (5) Cirrhosis: Qualifiers: Ascites presence: with ascites Hepatic cirrhosis type: unspecified hepatic cirrhosis Qualified Code(s): K74.60 - Unspecified cirrhosis of liver; R18.8 - Other ascites Code(s): K74.60 - Unspecified cirrhosis of liver Status: Acute Assessment and Plan: fairly new finding nored outpatient abdominal ultrasound (on 01/29): 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 s/p diagnostic and therapeutic paracentesis on 01/31 GI following (6) Hypotension: Code(s): I95.9 - Hypotension, unspecified Status: Acute Assessment and Plan: chronic issue Systolic is only 91 this morning. on midodrine Systolic generally runs in the 90s and low 100s. Subjective Date/time seen: 02/07/24 09:26 Interval history: Patient feels okay. Eager for discharge. Breathing is much better Exam Narrative: General: elderly but WD/WN male in NAD Heart: normal S1 and S2; no rub or gallop Lungs: more clear today. Abdomen: soft, nontender, less distension; positive bowel sounds Extremities: no cyanosis or clubbing; trace edema Skin: no rash Objective Data Vital Signs Vital Signs: Vital Signs - 24 hr 02/06/24 09:47 02/06/24 10:02 02/06/24 10:15 Temperature 98.7 F Pulse Rate 89 85 87 Respiratory Rate 24 H Blood Pressure 109/65 101/65 106/73 Pulse Oximetry Oxygen Delivery 02/06/24 11:00 02/06/24 11:15 02/06/24 12:02 Temperature Pulse Rate 87 78 80 Respiratory Rate Blood Pressure 100/58 L 94/58 L 99/62 L Pulse Oximetry Oxygen Delivery 02/06/24 12:07 02/06/24 10:30 02/06/24 10:45 Temperature 97.9 F Pulse Rate 85 82 84 Respiratory Rate 24 H Blood Pressure 99/64 L 93/67 L 103/62 Pulse Oximetry 94 Oxygen Delivery 02/06/24 11:30 02/06/24 11:45 02/06/24 12:00 Temperature Pulse Rate 82 87 87 Respiratory Rate Blood Pressure 96/61 L 102/60 Pulse Oximetry Oxygen Delivery 02/06/24 14:32 02/06/24 14:40 02/06/24 14:00 Temperature 97.6 F Pulse Rate 80 81 84 Respiratory Rate 16 16 18 Blood Pressure 91/53 L Pulse Oximetry 98 Oxygen Delivery 02/06/24 20:09 02/06/24 20:06 02/06/24 20:41 Temperature Pulse Rate 88 85 Respiratory Rate 18 Blood Pressure Pulse Oximetry 93 Oxygen Delivery Room Air 02/06/24 20:04 02/06/24 20:40 02/06/24 20:40 Temperature 98.4 F Pulse Rate 90 75 Respiratory Rate 16 Blood Pressure 91/70 L Pulse Oximetry 95 Oxygen Delivery Room Air 02/06/24 20:16 02/07/24 00:05 02/07/24 02:40 Temperature Pulse Rate 91 98 93 Respiratory Rate 18 18 Blood Pressure Pulse Oximetry
[2024-02-07 11:58] LABS: Albumin Peritoneal Fluid 2.2 g/dL; Amylase Peritoneal Fluid 21 U/L; Glucose Peritoneal Fluid 101 mg/dL; Total Protein Peritoneal Fluid 3.6 g/dL
--- NOTE | 2024-02-07 13:11 | P.DS_ITS ---
DS: Admitting Diagnosis Discharge Date 02/07/2024 Admitting Diagnosis New onset Ascites/Pneumonia DS: Discharge Diagnosis Discharge Diagnosis (1) Sepsis: Qualifiers: Sepsis acute organ dysfunction status: without acute organ dysfunction Sepsis type: sepsis due to unspecified organism Qualified Code(s): A41.9 - Sepsis, unspecified organism Code(s): A41.9 - Sepsis, unspecified organism Status: Acute (2) Pneumonia: Qualifiers: Laterality: unspecified laterality Lung location: unspecified part of lung Pneumonia type: due to unspecified organism Qualified Code(s): J18.9 - Pneumonia, unspecified organism Code(s): J18.9 - Pneumonia, unspecified organism Status: Acute (3) Elevated troponin: Code(s): R79.89 - Other specified abnormal findings of blood chemistry Status: Acute (4) Cirrhosis: Qualifiers: Ascites presence: with ascites Hepatic cirrhosis type: unspecified hepatic cirrhosis Qualified Code(s): K74.60 - Unspecified cirrhosis of liver; R18.8 - Other ascites Code(s): K74.60 - Unspecified cirrhosis of liver Status: Acute (5) ESRD (end stage renal disease): Code(s): N18.6 - End stage renal disease Status: Chronic Plan Sepsis without septic shock-RESOLVING Secondary to pneumonia * empiric IV antibiotic therapy * Monitor lactic acid levels q6hr. WNL * Repeat CBC, CMP. * Two sets of blood cultures NGTD * C-reactive proteins * procalcitonin level. * PTT and PT, INR. * neuro status checks * Chest x-ray LT upper lobe pneumonia. * Monitor albumin, monitoring of mental status. * Incentive spirometer ABD ascites/elevated liver enzymes * GI consulted * Paracentesis yield 5L * Hepatitis panel pending * No alcohol HX * MASH * Paracentesis PRN ESRD * Due to HX of renal carcinoma with LT nephrectomy * dialysis MWF * nephrology consulted * Avoid nephrotoxic drugs. * Monitor antihypertensive drug therapy. * Avoid NSAIDs. * Routine CMP monitoring GFR. * Monitor electrolytes especially potassium. * Antibiotic doses depending on creatinine clearance. * Pharmacy does medications. 02/05: * Dialysis * CXR to follow Pleural effusion/left upper lobe consolidation * Have some concern for malignancy * thoracentesis 02/03 * hold Eliquis * Is to send pleural studies 02/03: * Thoracentesis yielded 1000 mL of brown colored fluid with a pH >7.5 * Pleural studies pending 02/04: * Patient with increased SOB * CXR pending r/o pneumothorax * Oxygen PRN * duoneb Hypotension: * Chronic * Resumed midodrine HX HTN: Resumed home medications HX HLD: resumed statin HX AFIB: Holding Eliquis for procedure HX gout: Resume allopurinol Disposition: Discharged to [facility] via EMS, dialysis scheduled for M,W,F DS: Summary Hospital Course Reason for hospitalization: New onset Ascites/Pneumonia Hospital Course: Admission: Medical record Narrative: 83 y/o M presents here with shortness of breath, generalized weakness, and ground-level fall with PMH of renal cell carcinoma (s/p left nephrectomy), AFib, CAD, ESRD on HD (MWF), and HLD. The patient presents here for further evaluation of shortness of breath, generalized weakness, fatigue, and worsening abdominal distension over the past 6 months. However, the shortness of breath has significan
--- NOTE | 2024-02-07 13:11 | PM.DS ---
DS: Admitting Diagnosis Discharge Date 02/07/2024 Admitting Diagnosis New onset Ascites/Pneumonia DS: Discharge Diagnosis Discharge Diagnosis (1) Sepsis: Qualifiers: Sepsis acute organ dysfunction status: without acute organ dysfunction Sepsis type: sepsis due to unspecified organism Qualified Code(s): A41.9 - Sepsis, unspecified organism Code(s): A41.9 - Sepsis, unspecified organism Status: Acute (2) Pneumonia: Qualifiers: Laterality: unspecified laterality Lung location: unspecified part of lung Pneumonia type: due to unspecified organism Qualified Code(s): J18.9 - Pneumonia, unspecified organism Code(s): J18.9 - Pneumonia, unspecified organism Status: Acute (3) Elevated troponin: Code(s): R79.89 - Other specified abnormal findings of blood chemistry Status: Acute (4) Cirrhosis: Qualifiers: Ascites presence: with ascites Hepatic cirrhosis type: unspecified hepatic cirrhosis Qualified Code(s): K74.60 - Unspecified cirrhosis of liver; R18.8 - Other ascites Code(s): K74.60 - Unspecified cirrhosis of liver Status: Acute (5) ESRD (end stage renal disease): Code(s): N18.6 - End stage renal disease Status: Chronic Plan Sepsis without septic shock-RESOLVING Secondary to pneumonia empiric IV antibiotic therapy Monitor lactic acid levels q6hr. WNL Repeat CBC, CMP. Two sets of blood cultures NGTD C-reactive proteins procalcitonin level. PTT and PT, INR. neuro status checks Chest x-ray LT upper lobe pneumonia. Monitor albumin, monitoring of mental status. Incentive spirometer ABD ascites/elevated liver enzymes GI consulted Paracentesis yield 5L Hepatitis panel pending No alcohol HX MASH Paracentesis PRN ESRD Due to HX of renal carcinoma with LT nephrectomy dialysis [facility] nephrology consulted Avoid nephrotoxic drugs. Monitor antihypertensive drug therapy. Avoid NSAIDs. Routine CMP monitoring GFR. Monitor electrolytes especially potassium. Antibiotic doses depending on creatinine clearance. Pharmacy does medications. 02/05: Dialysis CXR to follow Pleural effusion/left upper lobe consolidation Have some concern for malignancy thoracentesis 02/03 hold Eliquis Is to send pleural studies 02/03: Thoracentesis yielded 1000 mL of brown colored fluid with a pH >7.5 Pleural studies pending 02/04: Patient with increased SOB CXR pending r/o pneumothorax Oxygen PRN duoneb Hypotension: Chronic Resumed midodrine HX HTN: Resumed home medications HX HLD: resumed statin HX AFIB: Holding Eliquis for procedure HX gout: Resume allopurinol Disposition: Discharged to [facility] via EMS, dialysis scheduled for M,W,F DS: Summary Hospital Course Reason for hospitalization: New onset Ascites/Pneumonia Hospital Course: Admission: Medical record Narrative: 83 y/o M presents here with shortness of breath, generalized weakness, and ground-level fall with PMH of renal cell carcinoma (s/p left nephrectomy), AFib, CAD, ESRD on HD (MWF), and HLD. The patient presents here for further evaluation of shortness of breath, generalized weakness, fatigue, and worsening abdominal distension over the past 6 months. However, the shortness of breath has significantly worsened over the last week and accompanied by a intermittently productive cough yielding green sputum. No associated fever chills, body aches. He reports the abdominal distention started over the winter and has been slowly progressing. Now accompanied by early satiety. Patient has history of ESRD and is on hemodialysis, appointments on Thursday, Thursday, and Thursday. Reports no missed treatment, last treatment yesterday (01/28). Shortness of breath not relieved with dialysis. Currently denying chest pain, nausea, vomiting, diarrhea, diaphoresis, syncope, or presyncope sens
[2024-02-08 05:03] LABS: Actin Antibody (IgG) <20 U (<20)
[2024-02-11 10:43] LABS: Albumin Pleural Fluid 1.9 g/dL; Amylase, Pleural Fluid 25 U/L; Glucose Pleural Fluid 115 mg/dL; Total Protein Pleural Fluid <3.0 g/dL
[2024-02-17 00:19] LABS: ALT 26 U/L (9-46); Alpha-2-Macroglobulin 134 mg/dL (106-279); Apolipoprotein A1 69 mg/dL (94-176); Fibrosis Score 0.78; Fibrosis Stage F4; GGT 68 U/L (3-70); Haptoglobin 172 mg/dL (43-212); Necroinflammat Act Grade A0-A1; Total Bilirubin 2.6 mg/dL (0.2-1.2)
== END 2024-02-07 14:05 | DRG 871 ==
LOC: ANHED 18:01 → ANHIMU 18:31 → ANH3MED 02-01 20:26
PROVIDERS: Internal Medicine; Internal Medicine Nephrology; Nurse Practitioner Family; Student in an Organized Health Care Education/Training Program; Admitting Provider Internal Medicine; Emergency Provider Student in an Organized Health Care Education/Training Program; PCP Family Medicine; Visit Provider Nurse Practitioner Family
DX: A41.9 Sepsis, unspecified organism (principal); J18.9 Pneumonia, unspecified organism; N18.6 End stage renal disease; R18.8 Other ascites; I12.0 Hypertensive chronic kidney disease with stage 5 chronic kidney disease or end stage renal disease; J90 Pleural effusion, not elsewhere classified; I48.20 Chronic atrial fibrillation, unspecified; D53.9 Nutritional anemia, unspecified; E78.5 Hyperlipidemia, unspecified; E11.22 Type 2 diabetes mellitus with diabetic chronic kidney disease; I25.2 Old myocardial infarction; I25.10 Atherosclerotic heart disease of native coronary artery without angina pectoris; I95.9 Hypotension, unspecified; K74.60 Unspecified cirrhosis of liver; M10.9 Gout, unspecified; R79.89 Other specified abnormal findings of blood chemistry; Z85.528 Personal history of other malignant neoplasm of kidney; Z90.5 Acquired absence of kidney; Z99.2 Dependence on renal dialysis; Z79.82 Long term (current) use of aspirin; Z79.01 Long term (current) use of anticoagulants; Z66 Do not resuscitate; Z20.822 Contact with and (suspected) exposure to COVID-19
CPT/HCPCS: 32555; 36415; 49083; 71045; 71046; 71275; 76700; 80053; 80061; 80069; 80074; 80202; 81001; 81596; 82040; 82042; 82103; 82105; 82150; 82247; 82390; 82465; 82565; 82607; 82746; 82945; 82947; 82948; 83036; 83540; 83550; 83605; 83615; 83690; 83735; 83986; 84100; 84145; 84155; 84157; 84311; 84478; 84484; 85025; 85610; 85730; 86038; 86039; 86364; 86706; 87015; 87040; 87070; 87075; 87086; 87102; 87116; 87118; 87205; 87206; 87340; 87637; 87641; 88108; 88305; 89051; 93005; 94640; 96365; 96375; 97110; 97161; 97165; 97530; 97535; 99285; A9270; G0257; J0456; J0692; J1644; J1940; J3370; J7030; J7120; P9047; Q5105; Q9967

== ENCOUNTER 2024-02-19 11:38 | Outpatient (CLI) | payer MEDICARE, BC, SELFPAY ==
--- NOTE | ~2024-02-19 | US_ITS ---
EXAMINATION: US paracentesis abd w/image DATE: 02/19/2024 12:57 INDICATION: Ascites. Cirrhosis of the liver. TECHNIQUE: The procedure and its risks, benefits, and alternatives were discussed with the patient. P otential risks discussed included bleeding and infection. The skin was prepped and draped in sterile fashion. 1% lidocaine was used for local anesthesia. Under ultrasound guidance, a 5 Fr catheter with trochar was advanced into the ascites in the left lower quadrant. Fluid was aspirated. The catheter w as removed, and a dressing was applied. There were no immediate complications. FINDINGS: Ultrasound images demonstrate ascites and the catheter within the fluid. IMPRESSION: 1. Successful ultrasound-guided paracentesis yielding 4000 mL of cici-colored fluid. Reviewed, dictated and finalized at location A.
== END 2024-02-19 11:39 | disposition home or self-care (01) ==
PROVIDERS: PCP Family Medicine; Visit Provider Family Medicine
DX: R18.8 Other ascites (principal); K74.60 Unspecified cirrhosis of liver
CPT/HCPCS: 49083

== ENCOUNTER 2024-03-22 08:09 | Outpatient (CLI) | payer MEDICARE, BC, SELFPAY ==
--- NOTE | ~2024-03-22 | US_ITS ---
EXAMINATION: US paracentesis abd w/image DATE: 03/22/2024 10:16 INDICATION: Unspecified cirrhosis of liver. Ascites. TECHNIQUE: The procedure and its risks, benefits, and alternatives were discussed with the patient. P otential risks discussed included bleeding and infection. The skin was prepped and draped in sterile fashion. 1% lidocaine was used for local anesthesia. Under ultrasound guidance, a 5 Fr catheter with trochar was advanced into the ascites in the left lower quadrant. Fluid was aspirated. The catheter w as removed, and a dressing was applied. There were no immediate complications. FINDINGS: Ultrasound images demonstrate ascites and the catheter within the fluid. IMPRESSION: 1. Successful ultrasound-guided paracentesis yielding 5000 mL of serosanguineous fluid. Reviewed, dictated and finalized at location A. IMPRESSION: 1. Successful ultrasound-guided paracentesis yielding 5000 mL of serosanguineo us fluid.
[2024-03-22 09:11] LABS: Mean Platelet Volume 8.9 fl (7.4-10.4); Platelet Count Result 185 k/mm3 (150-375)
[2024-03-22 09:23] LABS: INR 1.3; Prothrombin Time 17.1 Seconds (11.1-14.7)
== END 2024-03-22 08:10 | disposition home or self-care (01) ==
PROVIDERS: Radiology Diagnostic Radiology; PCP Family Medicine; Visit Provider Nurse Practitioner Family
DX: K74.60 Unspecified cirrhosis of liver (principal); R18.8 Other ascites
CPT/HCPCS: 36415; 49083; 85049; 85610

== ENCOUNTER 2024-03-30 16:28 | Outpatient (CLI) | payer MEDICARE, BC, SELFPAY ==
--- NOTE | ~2024-03-30 | XR_ITS ---
AP view of the pelvis and AP and lateral views of the left hip Clinical history: Pain Findings: No acute fracture or dislocation is seen. Osseous alignment is anatomic. Bilateral hip and SI joint spaces are preserved. Soft tissues are unremarkable. Impression: No significant abnormality is seen. Reviewed, dictated and finalized at location . Impression: No significant abnormality is seen.
--- NOTE | ~2024-03-30 | XR_ITS ---
Left Shoulder Technique: AP and scapular Y views were obtained. Clinical History: Pain Findings: No fracture or dislocation is seen. Osseous alignment is anatomic. The glenohumeral joint i s intact. There is mild AC joint degenerative change. Soft tissues are unremarkable. Impression: Mild AC joint degenerative change. Reviewed, dictated and finalized at location . Impression: Mild AC joint degenerative change.
== END 2024-03-30 16:29 ==
PROVIDERS: Visit Provider Family Medicine
DX: M25.512 Pain in left shoulder (principal); M25.552 Pain in left hip
CPT/HCPCS: 73030; 73502

== ENCOUNTER 2024-04-19 09:01 | Outpatient (CLI) | payer MEDICARE, BC, SELFPAY ==
--- NOTE | ~2024-04-19 | US_ITS ---
EXAMINATION: US paracentesis abd w/image DATE: 04/19/2024 10:42 INDICATION: Ascites. TECHNIQUE: The procedure and its risks and benefits were discussed with the patient. Potential risks discussed included bleeding and infection. The skin was prepped and draped in sterile fashion. 1% lid ocaine was used for local anesthesia. Under ultrasound guidance, a 5 Fr catheter with trochar was adv anced into the ascites in the left lower quadrant. Fluid was aspirated into vacuum bottles. The cole ter was removed, and a dressing was applied. There were no immediate complications. FINDINGS: Ultrasound images demonstrate ascites and the catheter within the fluid. IMPRESSION: 1. Successful ultrasound-guided paracentesis yielding 5000 mL of brownish fluid. Reviewed, dictated and finalized at location A. IMPRESSION: 1. Successful ultrasound-guided paracentesis yielding 5000 mL of brownish flui d.
== END 2024-04-19 09:02 | disposition home or self-care (01) ==
PROVIDERS: PCP Family Medicine; Visit Provider Nurse Practitioner Family
DX: K74.60 Unspecified cirrhosis of liver (principal); R18.8 Other ascites
CPT/HCPCS: 49083

== ENCOUNTER 2024-05-17 09:11 | Outpatient (CLI) | payer MEDICARE, BC, SELFPAY ==
--- NOTE | ~2024-05-17 | US_ITS ---
EXAMINATION: US paracentesis abd w/image DATE: 05/17/2024 10:07 INDICATION: Ascites. TECHNIQUE: The procedure and its risks, benefits, and alternatives were discussed with the patient. P otential risks discussed included bleeding and infection. The skin was prepped and draped in sterile fashion. 1% lidocaine was used for local anesthesia. Under ultrasound guidance, a 5 Fr catheter with trochar was advanced into the ascites in the left lower quadrant. Fluid was aspirated. The catheter w as removed, and a dressing was applied. There were no immediate complications. FINDINGS: Ultrasound images demonstrate ascites and the catheter within the fluid. IMPRESSION: 1. Successful ultrasound-guided paracentesis yielding 5000 mL of brown fluid. Reviewed, dictated and finalized at location A.
== END 2024-05-17 09:12 | disposition home or self-care (01) ==
LOC: ANHIMG 09:13
PROVIDERS: PCP Family Medicine; Visit Provider Nurse Practitioner Family
DX: R18.8 Other ascites (principal); K74.60 Unspecified cirrhosis of liver
CPT/HCPCS: 49083

== ENCOUNTER 2024-06-09 08:31 | Outpatient (CLI) | payer MEDICARE, BC, SELFPAY ==
--- NOTE | ~2024-06-09 | US_ITS ---
EXAMINATION: US paracentesis abd w/image DATE: 06/09/2024 10:18 INDICATION: Unspecified cirrhosis of the liver. Ascites. TECHNIQUE: The procedure and its risks and benefits were discussed with the patient. Potential risks discussed included bleeding and infection. The skin was prepped and draped in sterile fashion. 1% lid ocaine was used for local anesthesia. Under ultrasound guidance, a 5 Fr catheter with trochar was adv anced into the ascites in the left lower quadrant. Fluid was aspirated into vacuum bottles. The cole ter was removed, and a dressing was applied. There were no immediate complications. FINDINGS: Ultrasound images demonstrate ascites and the catheter within the fluid. IMPRESSION: 1. Successful ultrasound-guided paracentesis yielding 5000 mL of brown fluid. Reviewed, dictated and finalized at location A.
[2024-06-09 09:00] LABS: Mean Platelet Volume 9.2 fl (7.4-10.4); Platelet Count Result 159 k/mm3 (150-375)
[2024-06-09 09:13] LABS: INR 1.2; Prothrombin Time 15.6 Seconds (11.1-14.7)
== END 2024-06-09 08:32 | disposition home or self-care (01) ==
PROVIDERS: Radiology Diagnostic Radiology; PCP Family Medicine; Visit Provider Nurse Practitioner Family
DX: K74.60 Unspecified cirrhosis of liver (principal); R18.8 Other ascites
CPT/HCPCS: 36415; 49083; 85049; 85610

== ENCOUNTER 2024-07-05 09:46 | Outpatient (CLI) | payer MEDICARE, BC, SELFPAY ==
--- NOTE | ~2024-07-05 | US_ITS ---
EXAMINATION: US paracentesis abd w/image DATE: 07/05/2024 10:31 INDICATION: Ascites. TECHNIQUE: The procedure and its risks, benefits, and alternatives were discussed with the patient. P otential risks discussed included bleeding and infection. The skin was prepped and draped in sterile fashion. 1% lidocaine was used for local anesthesia. Under ultrasound guidance, a 5 Fr catheter with trochar was advanced into the ascites in the left lower quadrant. Fluid was aspirated. The catheter w as removed, and a dressing was applied. There were no immediate complications. FINDINGS: Ultrasound images demonstrate ascites and the catheter within the fluid. IMPRESSION: 1. Successful ultrasound-guided paracentesis yielding 5000 mL of hurd fluid. Reviewed, dictated and finalized at location A. 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
== END 2024-07-05 09:47 | disposition home or self-care (01) ==
LOC: ANHIMG 09:47
PROVIDERS: PCP Family Medicine; Visit Provider Nurse Practitioner Family
DX: R18.8 Other ascites (principal); K74.60 Unspecified cirrhosis of liver
CPT/HCPCS: 49083

== ENCOUNTER 2024-07-31 09:01 | Emergency (ER) | payer MEDICARE, BC, SELFPAY ==
--- NOTE | ~2024-07-31 | CT_ITS ---
EXAMINATION: CT brain wo con DATE: 07/31/2024 11:38 INDICATION: Fall. TECHNIQUE: Computed tomography (CT) of the head was performed without intravenous contrast. The mA wa s adjusted according to patient size. Iterative reconstruction technique was employed. The dose-lengt h product was 605.33 mGy-cm. COMPARISON: None FINDINGS: There is no intracranial hemorrhage, acute infarction, or abnormal intracranial mass lesion . There are scattered areas of low attenuation in the cerebral white matter, which is within normal l imits for the patient's age. The ventricles are normal in size. There is mild mucosal thickening in t he paranasal sinuses. There are likely changes of ocular lens replacement surgeries. The mastoid air cells are normal. 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 IMPRESSION: 1. Normal aging brain. Reviewed, dictated and finalized at location A. RAPHIC INFORMATION SYSTEMS DIRECTOR IMPRESSION: 1. Normal aging brain.
--- NOTE | ~2024-07-31 | XR_ITS ---
EXAMINATION: XR chest 2V DATE: 07/31/2024 09:29 INDICATION: Chest pain. Shortness of breath. TECHNIQUE: Frontal and lateral views of the chest were obtained. COMPARISON: Chest single view 02/06/2024 FINDINGS: There are small pleural effusions. There are airspace opacities at left lung base. No pneum othorax. Cardiomegaly is noted. IMPRESSION: 1. Small pleural effusions. 2. Airspace opacities at left lung base, consistent with atelectasis versus pneumonia. 3. Cardiomegaly. Reviewed, dictated and finalized at location A. ING MACHINE OPERATOR IMPRESSION: 1. Small pleural effusions. 2. Airspace opacities at left lung base, consistent with atelectasis versus pne umonia. 3. Cardiomegaly.
--- NOTE | ~2024-07-31 | CT_ITS ---
EXAMINATION: CT cervical spine wo con DATE: 07/31/2024 11:38 INDICATION: Fall. TECHNIQUE: Computed tomography (CT) of the cervical spine was performed without intravenous contrast. Automated exposure control and iterative reconstruction technique were employed. The dose-length pro duct was 510.38 mGy-cm. COMPARISON: None FINDINGS: There are bilateral pleural effusions. There is hypolordosis of cervical spine. There is 2 mm anterolisthesis of C7 on T1. There is 7 degrees levocurvature of cervical spine. There is interbod y fusion from C2 to C6 with ankylosis of most of the facet joints at these levels. There is severely decreased disc height at C6-C7 and mildly decreased disc height at C7-T1. There is Paget disease invo lving the skull. The following disc levels are specifically discussed: C2-C3: There is mild bilateral uncovertebral joint hypertrophy. There is mild bilateral facet joint h ypertrophy. There is mild right neural foraminal stenosis. There is no central canal stenosis. C3-C4: There is moderate bilateral uncovertebral joint hypertrophy. There is moderate bilateral facet joint hypertrophy. There is mild bilateral neural foraminal stenosis. There is no central canal sten osis. C4-C5: There is mild bilateral uncovertebral joint hypertrophy. There is moderate right and mild left facet joint hypertrophy. There is mild right neural foraminal stenosis. There is no central canal st enosis. C5-C6: There is severe bilateral uncovertebral joint hypertrophy. There is moderate bilateral facet j oint osteoarthritis. There is mild bilateral neural foraminal stenosis. There is mild central canal s tenosis. C6-C7: There is moderate right and severe left uncovertebral joint osteoarthritis. There is mild bila teral facet joint osteoarthritis. There is mild bilateral neural foraminal stenosis. There is mild ce ntral canal stenosis. C7-T1: There is mild bilateral uncovertebral joint osteoarthritis. There is severe bilateral facet leanne int osteoarthritis. There is mild bilateral neural foraminal stenosis. There is no central canal sten osis. IMPRESSION: 1. No fracture. 2. Severe cervical spondylosis. 3. Bilateral pleural effusions. Reviewed, dictated and finalized at location A. OGEOLOGIST
[2024-07-31 09:03] VITALS: BP 89/62; PULSE 95; RESP 16; TEMP 36.4; O2SAT 97
--- NOTE | 2024-07-31 09:14 | ECG_ITS ---
Test Date: 2024-07-31 09:36:18 Measurements Intervals Basalt Rate: 80 P: 0 NJ: 0 QRS: -12 QRSD: 124 T: 216 QT: 416 QTc: 480 Interpretive Statements ATRIAL FIBRILLATION WITH ABERRANT CONDUCTION OR VENTRICULAR PREMATURE COMPLEXES POSSIBLE RIGHT VENTRICULAR CONDUCTION DELAY [RSR (QR) IN V1/V2] INFERIOR MYOCARDIAL INFARCTION , PROBABLY OLD [40+ ms Q WAVE AND/OR ST/T ABNORMALITY IN II/aVF] ST depression anterior leads Compared to ECG 01/31/2024 17:19:12 premature ventricular beats are now present, ST depression anterior leads is more prominent Electronically Signed On 07-31-2024 15:03:58 [employer] FISH[employer] by Jose Francisco Paiz M.D.
[2024-07-31 09:38] LABS: Alanine Aminotransferase 12 U/L (6-50); Albumin Level 3.5 g/dL (3.5-5.1); Alkaline Phosphatase 188 U/L (38-126); Anion Gap 6 mmol/L (4-12); Aspartate Amino Transferase 19 U/L (17-59); Bilirubin,Total 2.2 mg/dL (0.2-1.3); Blood Urea Nitrogen 39 mg/dL (9-20); Calcium 9.4 mg/dL (8.4-10.2); Carbon Dioxide 37 mmol/L (22-30); Chloride 95 mmol/L (98-107); Estimated CRCL calculation 10 ml/min; Estimated Glomerular Filt Rate 8; Glucose 101 mg/dL (65-110); Potassium 3.9 mmol/L (3.4-5.0); Sodium 138 mmol/L (137-145)
[2024-07-31 09:41] LABS: Basophils Percent Auto 0.5 % (0.2-1.2); Eosinophils Percent Auto 0.9 % (0-4.4); Hematocrit 30.8 % (42.0-52.0); Hemoglobin 10.2 g/dL (14.0-18.0); Immature Granulocyte Absolute 0.01 K/mm3 (0.00-0.031); Immature Granulocyte Percent A 0.2 % (0-0.5); Lymphocytes Absolute Auto 0.48 K/mm3 (0.9-3.2); Lymphocytes Percent Auto 10.9 % (18.3-44.2); Mean Corpuscular HGB Conc 33.1 g/dl (32-36); Mean Corpuscular Hemoglobin 35.4 pg (26-34); Mean Corpuscular Volume 106.9 fl (80-100); Mean Platelet Volume 9.3 fl (7.4-10.4); Monocytes Absolute Auto 0.6 K/mm3 (0.1-0.6); Monocytes Percent Auto 14.1 % (2.6-8.5); Neutrophils Absolute Auto 3.2 K/mm3 (1.3-6.7); Neutrophils Percent Auto 73.4 % (45.5-73.1); Platelet Count Result 180 k/mm3 (150-375); Red Blood Count 2.88 M/mm3 (4.6-6.20); Red Cell Distribution Width 14.8 % (11.5-14.5); White Blood Count 4.4 K/mm3 (4.5-10.0)
[2024-07-31 10:06] LABS: Anisocytosis 1+; Platelet Estimate Adequate (Adequate); Schistocytes None Seen
[2024-07-31 11:00] VITALS: BP 83/57; PULSE 76; RESP 14; TEMP 36.7; O2SAT 97
--- NOTE | 2024-07-31 11:41 | ED_ITS ---
HPI - Fall General Chief Complaint: Fall Stated Complaint: fall Time Seen by Provider: 07/31/24 10:49 History of Present Illness HPI Narrative: 84-year-old male with a past medical history significant for atrial fibrillation on Eliquis, end-stage renal disease on dialysis Thursday, Thursday, Thursday, liver cirrhosis with recurrent paracenteses. Today patient presents to the emergency department via EMS for a ground level fall. Patient states he was getting up in the kitchen trying to get his morning medications when he slipped and fell. He states he is wearing slippery socks. He fell and hit his head. Did not lose consciousness but was not able to get up unassisted. Called EMS for assistance. Missed his morning medications including midodrine and Eliquis this morning. No missed hemodialysis sessions. Is scheduled for paracentesis on Thursday. Patient states his blood pressure normally runs in the 80s to 90s and this is not uncommon for a. This is why he is on midodrine 3 times daily and double dosing on dialysis days. Patient denies any chest pain, shortness a breath, nausea, vomiting, headache, vision changes, abdominal pain, weakness fatigue. He was otherwise in his normal state of health. Denies any other injuries. Related Data Home Medications Medication Instructions Recorded Confirmed aspirin 81 mg tablet,delayed 81 mg PO DAILY 11/26/20 06/21/24 release fluticasone furoate 27.5 1 spray intranasal DAILY PRN 11/26/20 06/21/24 mcg/actuation nasal Congestion spray,suspension glucosamine HCl 1,500 mg tablet 1,500 mg PO DAILY 11/26/20 06/21/24 nitroglycerin 0.4 mg sublingual 0.4 mg sublingual Q5M PRN Chest 11/26/20 06/21/24 tablet Pain olopatadine 0.2 % eye drops 1 drp EACH EYE DAILY PRN itchy eyes 11/26/20 06/21/24 (Pataday Once Daily Relief) metoprolol tartrate 25 mg tablet 12.5 mg PO BID 01/30/24 06/21/24 midodrine 10 mg tablet 10 mg PO TID 01/30/24 06/21/24 sevelamer carbonate 800 mg tablet 1,600 mg PO TIDWM 01/30/24 06/21/24 Allergies Allergy/AdvReac Type Severity Reaction Status Date / Time No Known Allergies Allergy Verified 07/31/24 09:12 Review of Systems Review of Systems: as reviewed above in [facility] Past Medical History Medical History CAD in [place] artery Chronic kidney disease, stage 4 (severe) CKD (chronic kidney disease) stage 3, GFR 30-59 ml/min Dialysis patient ESRD (end stage renal disease) HLD (hyperlipidemia) Hy ht/kd 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 Idiopathic peripheral neuropathy Pleural effusion Renal cell carcinoma s/p nephrectomy Retinal detachment Surgical History Surgical History History of left nephrectomy Social History Social History Smoking status: Never smoker Second hand tobacco smoke exposure: No Alcohol intake: never Substance use: never Substance use type: does not use Do You Feel Safe in your Home?: Yes Lack of Transportation: No Lack of Food: Never True Current Housing: I Have Housing Concerned About Future Housing: No Difficulty Paying Gas/Electric Bills: No Difficulty Paying for Meds: No Currently Unemployed: No Education: Decline to Answer Difficulty w/ Childcare or Family Care: No Living arrangements: alone Occupation/Education: retired Gender identity (if verbalized by the patient): Male Sexual Orientation (if Verbalized by the Patient): Straight or Heterosexual Spiritual care concerns: No Exam Narrative: GENERAL: [Well-appearing, well-nourished, and in no acute distress.] HEAD: normocephalic, left-sided parietal hematoma without any bleeding or skin lacerations. EYES: [PERRLA and EOMI.] ENT: Nares clear, no rhinorrhea or epistaxis. Mucous membranes moist. NECK: Supple. CHEST: [Clear to auscultation. No respiratory distress.] HEART: [Regular rate and rhythm]. No murmur heard. [Normal peripheral pulses.] ABDOMEN: Soft but distended, fluid wave evident from ascites, [nontender], [No rigidity or guarding] EXTREMITIES: Normal range of motion. [No edema.] SKIN: Warm, dry, no rash. NEURO: [No focal deficits]. Alert and oriented [x3.] PSYCH: [Normal mood and affect.] Course Vital Signs Vital signs: Vital Signs Temperature 36.4 C 07/31/24 09:03 Pulse Rate 95 07/31/24 09:03 Respiratory Rate 16 07/31/24 09:03 Blood Pressure 89/62 L 07/31/24 09:03 Pulse Oximetry 97 07/31/24 09:03 Oxygen Delivery Room Air 07/31/24 09:03 Temperature 36.4 C 07/31/24 12:30 Pulse Rate 81 07/31/24 12:30 Respiratory Rate 14 07/31/24 12:30 Blood Pressure 87/56 L 07/31/24 12:30 Pulse Oximetry 97 07/31/24 12:30 Oxygen Delivery Room Air 07/31/24 09:03 MDM - Fall MDM Narrative Medical decision making narrative: 84-year-old male with complex medical history including atrial fibrillation on Eliquis, recurrent paracenteses for ascites secondary to liver cirrhosis, dialysis Thursday for renal failure. Had a ground level mechanical fall today at his home. Did strike his head and does have evidence of a hematoma without any skin lacerations or abrasions. His vital signs show hypotension which is stable for him. He has a blood pressure 89/62 with good map. He states he normally runs in the 80s to 90s and he takes midodrine for this but did not take his morning medication. No tachycardia, hypoxia, fever. No focal neurological deficits, no complaints at this time such as headache, vision change, weakness, fatigue. Denies any prodromal symptoms to the fall and did not lose consciousness. Given that he is on Eliquis we will have to obtain CT scan to make sure there is no intracranial process such as a bleed or hematoma. Low suspicion other process this time however given his age and risk factors a workup was ordered including laboratory assessment CBC, CMP, EKG and chest x-ray to make sure there is no electrolyte derangements or infectious process. Patient was given a dose of his missed midodrine 5 mg p.o.. Laboratory studies revealed no leukocytosis, hemoglobin at 10.2, slightly lower than his baseline but no active signs of bleeding. electrolyte panel shows no significant concerns. Normal potassium level, BUN and creatinine reflective of his end-stage renal dysfunction. LFTs in line with his baseline. CT scans were independently reviewed and interpreted by radiology. CT scan shows normal aging brain without any injuries. Cervical spine shows no fractures, cervical spondylosis chronic. Chest x-ray shows small bilateral pleural effusions, cardiomegaly. Atelectasis is seen, no signs of active infection. Patient had stable vital signs here. His blood pressure is chronically low and in line with his normal levels. Was given his missed dose of midodrine. Patient has no signs or symptoms of his hypo tension right now and denies any syncope, presyncope, chest pain, shortness a breath, abdominal pain, back pain, abdominal pain. given his reassuring workup here and lack of any acute findings I believe he can be safely discharged and followed up with by his primary care provider and maintain his regular hemodialysis schedule tomorrow and is regular paracentesis schedule on Thursday. patient was comfortable with this plan and the family members were spoken with bedside also comfortable with this plan. They were told to return if they have any new concerns or any complications and expressed understanding of the return precautions. Patient is safe for dischar at this time. Medical Records Attestation: I reviewed the patient's medical records. Lab Data Attestation: I reviewed the patient's lab results. 07/31/24 09:22 07/31/24 09:22 Labs: Lab Results 07/31/24 Range/Units 09:22 WBC 4.4 L (4.5-10.0) K/mm3 RBC 2.88 L (4.6-6.20) M/mm3 Hgb 10.2 L (14.0-18.0) g/dL Hct 30.8 L (42.0-52.0) % MCV 106.9 H (80-100) fl MCH 35.4 H (26-34) pg MCHC 33.1 (32-36) g/dl RDW 14.8 H (11.5-14.5) % Plt Count 180 (150-375) k/mm3 MPV 9.3 (7.4-10.4) fl Immature Gran % (Auto) 0.2 (0-0.5) % Neut % (Auto) 73.4 H (45.5-73.1) % Lymph % (Auto) 10.9 L (18.3-44.2) % [place] % (Auto) 14.1 H (2.6-8.5) % Eos % (Auto) 0.9 (0-4.4) % Baso % (Auto) 0.5 (0.2-1.2) % Lymph # (Auto) 0.48 L (0.9-3.2) K/mm3 [place] # (Auto) 0.6 (0.1-0.6) K/mm3 Eos # (Auto) 0.0 (0-0.3) K/mm3 Baso # (Auto) 0.0 (0.0-0.1) K/mm3 Abs Immat Gran (auto) 0.01 (0.00-0.031) K/mm3 Absolute Neuts (auto) 3.2 (1.3-6.7) K/mm3 Absolute Nucleated RBC 0.000 (0.0-0.012) K/mm3 Nucleated RBC % 0.0 (0.0-0.2) % Platelet Estimate Adequate (Adequate) Anisocytosis 1+ Schistocytes None seen Sodium 138 (137-145) mmol/L Potassium 3.9 (3.4-5.0) mmol/L Chloride 95 L (98-107) mmol/L Carbon Dioxide 37 H (22-30) mmol/L Anion Gap 6 (4-12) mmol/L BUN 39 H D (9-20) mg/dL Creatinine 6.80 H (0.7-1.3) mg/dL Estim Creat Clear Calc 10 ml/min Estimated GFR 8 L (59 - ) Glucose 101 (65-110) mg/dL Calcium 9.4 (8.4-10.2) mg/dL Total Bilirubin 2.2 H (0.2-1.3) mg/dL AST 19 (17-59) U/L ALT 12 (6-50) U/L Alkaline Phosphatase 188 H (38-126) U/L Total Protein 6.0 L (6.3-8.2) g/dL Albumin 3.5 (3.5-5.1) g/dL Imaging Data Attestation: I personally reviewed and interpreted this imaging study as follows: Radiologist's impression: Impressions Chest X-Ray 07/31/24 09:31 IMPRESSION: 1. Small pleural effusions. 2. Airspace opacities at left lung base, consistent with atelectasis versus pneumonia. 3. Cardiomegaly. Head CT 07/31/24 11:39 IMPRESSION: 1. Normal aging brain. Cervical Spine CT 07/31/24 11:41 IMPRESSION: 1. No fracture. 2. Severe cervical spondylosis. 3. Bilateral pleural effusions. ECG Data EKG #1: Attestation: I personally reviewed and interpreted this ECG as follows: ECG completion date: 07/31/24 ECG completion time: 09:36 Prior ECG tracings: available for review Interpretation: Atrial fibrillation without any rapid response, no ST segment elevations, depressions. No signs of acute ischemic changes. Occasional PVCs noted. , compared to his previous EKGs no significant interval changes. QTC of 480 milliseconds, QRS 124 milliseconds, no identifiable P waves. Overall atrial fibrillation without RVR. Similar from baseline. Discharge Plan Discharge Clinical Impression: CHI (closed head injury), Dialysis patient, Cirrhosis, Chronic asymptomatic hypotension Patient Disposition: Home, Self-Care Condition: Stable Instructions: Antibiotic Form, Concussion (ED), Head Injury (ED) Additional Instructions: here scans and laboratory studies were reassuring today. If he develop any symptoms at all, syncope, presyncope, headache, vision changes, altered mental status or any other concerns please return to the emergency department however you can safely follow-up with your regular doctor at this time and continue taking your regular medications including midodrine t.i.d., Eliquis, continue with the dialysis tomorrow and paracentesis on Thursday. Return with any new concerns at any time. Prescriptions: No Action mupirocin 2 % ointment 1 applic topical BID Qty: 15 1RF aspirin 81 mg tablet,delayed release (DR/EC) 81 mg PO DAILY nitroglycerin 0.4 mg tablet, sublingual 0.4 mg sublingual Q5M PRN (Reason: Chest Pain) Rx Instructions: do not exceed 3 doses per episode glucosamine HCl 1,500 mg tablet 1,500 mg PO DAILY Rx Instructions: administer with a meal fluticasone furoate 27.5 mcg/actuation spray,suspension 1 spray intranasal DAILY PRN (Reason: Congestion) Rx Instructions: into each nostril olopatadine [Pataday Once Daily Relief] 0.2 % drops 1 drp EACH EYE DAILY PRN (Reason: itchy eyes) midodrine 10 mg tablet 10 mg PO TID metoprolol tartrate 25 mg tablet 12.5 mg PO BID sevelamer carbonate 800 mg tablet 1,600 mg PO TIDWM polyethylene glycol 3350 [Miralax] 17 gram Powder In Packet 17 g PO QAM Qty: 1 0RF guaifenesin [Mucus Relief ER] 600 mg Tablet Extended Release 12hr 600 mg PO Q12HR Qty: 10 0RF atorvastatin 20 mg tablet 20 mg PO DAILY Qty: 90 0RF apixaban 2.5 mg tablet 2.5 mg PO BID Qty: 60 5RF allopurinol 300 mg tablet See Rx Instructions .ROUTE .COMPLEX Qty: 45 2RF Dose Instruction: Take 1/2 (one-half) tablet by mouth once daily Rx Instructions: Take 1/2 (one-half) tablet by mouth once daily gabapentin 300 mg capsule 300 mg PO QAM Qty: 90 1RF Follow-up/Referrals: Dickson Land MD [Primary Care Provider] - Time of Disposition: 13:31
[2024-07-31] MEDS: MIDODRINE HCL 2.5 MG TABLET 5 MG PO (11:59)
[2024-07-31 12:30] VITALS: BP 87/56; PULSE 81; RESP 14; TEMP 36.4; O2SAT 97
[2024-07-31 14:35] VITALS: BP 84/58; PULSE 79; RESP 14; O2SAT 97
== END 2024-07-31 14:35 | disposition home or self-care (01) ==
PROVIDERS: Emergency Medicine; Emergency Provider Student in an Organized Health Care Education/Training Program; PCP Family Medicine
DX: S09.90XA Unspecified injury of head, initial encounter (principal); K74.60 Unspecified cirrhosis of liver; N18.4 Chronic kidney disease, stage 4 (severe); Z99.2 Dependence on renal dialysis; I95.9 Hypotension, unspecified; I48.91 Unspecified atrial fibrillation; Z79.01 Long term (current) use of anticoagulants; I25.10 Atherosclerotic heart disease of native coronary artery without angina pectoris; E78.5 Hyperlipidemia, unspecified; Z85.528 Personal history of other malignant neoplasm of kidney; W01.0XXA Fall on same level from slipping, tripping and stumbling without subsequent striking against object, initial encounter
CPT/HCPCS: 36415; 70450; 71046; 72125; 80053; 85025; 93005; 99284; A9270

== ENCOUNTER 2024-08-18 09:06 | Outpatient (CLI) | payer MEDICARE, BC, SELFPAY ==
--- NOTE | ~2024-08-18 | US_ITS ---
EXAMINATION: US paracentesis abd w/image DATE: 08/18/2024 10:24 INDICATION: Ascites. TECHNIQUE: The procedure and its risks, benefits, and alternatives were discussed with the patient. P otential risks discussed included bleeding and infection. The skin was prepped and draped in sterile fashion. 1% lidocaine was used for local anesthesia. Under ultrasound guidance, a 5 Fr catheter with trochar was advanced into the ascites in the left lower quadrant. Fluid was aspirated. The catheter w as removed, and a dressing was applied. There were no immediate complications. FINDINGS: Ultrasound images demonstrate ascites and the catheter within the fluid. IMPRESSION: 1. Successful ultrasound-guided paracentesis yielding 4000 mL of cici-colored fluid. Reviewed, dictated and finalized at location A. URSING OFFICER
== END 2024-08-18 09:07 | disposition home or self-care (01) ==
PROVIDERS: PCP Family Medicine; Visit Provider Nurse Practitioner Family
DX: R18.8 Other ascites (principal); K74.60 Unspecified cirrhosis of liver
CPT/HCPCS: 49083

== ENCOUNTER 2024-09-06 08:23 | Outpatient (CLI) | payer MEDICARE, BC, SELFPAY ==
--- NOTE | ~2024-09-06 | US_ITS ---
EXAMINATION: US paracentesis abd w/image DATE: 09/06/2024 10:06 INDICATION: Ascites. TECHNIQUE: The procedure and its risks, benefits, and alternatives were discussed with the patient. P otential risks discussed included bleeding and infection. The skin was prepped and draped in sterile fashion. 1% lidocaine was used for local anesthesia. Under ultrasound guidance, a 5 Fr catheter with trochar was advanced into the ascites in the left lower quadrant. Fluid was aspirated. The catheter w as removed, and a dressing was applied. There were no immediate complications. FINDINGS: Ultrasound images demonstrate ascites and the catheter within the fluid. IMPRESSION: 1. Successful ultrasound-guided paracentesis yielding 4450 mL of cici-colored fluid. Reviewed, dictated and finalized at location A. WORKER
[2024-09-06 09:03] LABS: Mean Platelet Volume 9.3 fl (7.4-10.4); Platelet Count Result 165 k/mm3 (150-375)
[2024-09-06 09:18] LABS: INR 1.5; Prothrombin Time 18.6 Seconds (11.1-14.7)
== END 2024-09-06 08:24 | disposition home or self-care (01) ==
LOC: ANHIMG 08:25
PROVIDERS: Radiology Diagnostic Radiology; PCP Family Medicine; Visit Provider Radiology Diagnostic Radiology
DX: K74.60 Unspecified cirrhosis of liver (principal); R18.8 Other ascites
CPT/HCPCS: 36415; 49083; 85049; 85610

== ENCOUNTER 2024-09-30 11:16 | Outpatient (CLI) | payer MEDICARE, BC, SELFPAY ==
--- OUTSIDE RECORDS SUMMARY | 2024-09-29 10:47 | XMS_ITS | Referral Summary ---
Author Organization [facility] Address [facility] [place] [address] Care Team Providers Care Welfare Eligibility Worker Name Role Phone Dickson Land MD Primary Care Provider Dionicio Carrasquillo MD Unavailable [phone] Encounters Date Type Department Care Team Description 09/20/2024 11:30 AM COAL CONVEYOR OPERATOR Office Visit [facility] Otolaryngology [address], [address] [place] [address] Ravi Palm II, MD Sensorineural hearing loss (SNHL) of both ears (Primary Dx); Bilateral impacted cerumen 09/19/2024 Telephone [facility] Dialysis Access Center at [facility] [address] [place] [address] Malka Woo NP Updating medication list 09/13/2024 7:50 AM COAL CONVEYOR OPERATOR - 09/13/2024 11:59 PM COAL CONVEYOR OPERATOR Hospital Encounter [facility] Dialysis Access Center at [facility] [address] [place] [address] ESRD (end stage renal disease) on dialysis (HCC) (Primary Dx); Other complication of arteriovenous dialysis fistula, initial encounter (HCC); Hyperlipidemia LDL goal <70; Essential hypertension Discharge Disposition: Discharge to home or self care 09/13/2024 7:50 AM COAL CONVEYOR OPERATOR - 09/13/2024 11:59 PM COAL CONVEYOR OPERATOR Hospital Encounter [facility] Medical Office Building [address] [place] [address] ESRD (end stage renal disease) on dialysis (HCC); Other complication of arteriovenous dialysis fistula, initial encounter ([facility]) Discharge Disposition: Discharge to home or self care 08/31/2024 1:30 PM COAL CONVEYOR OPERATOR Office Visit [facility] Medical Group Cardiology [address] [place] [address] Angel Chow MD PAF (paroxysmal atrial fibrillation) (CMS/HCC) ([facility]) (Primary Dx); Nonrheumatic aortic (valve) stenosis; Hyperlipidemia LDL goal <70; Essential hypertension; Coronary artery disease of [place] artery of [place] heart with stable angina pectoris (HCC); Nonrheumatic mitral valve regurgitation; Cardiomyopathy, unspecified type ([facility]) 08/11/2024 Orders Only [facility] [phone] Unknown, Notinfile 07/26/2024 8:30 AM COAL CONVEYOR OPERATOR Office Visit [facility] Medical Group Cardiology [address] [place] [address] Sonia Jacobs NP Coronary artery disease involving [place] coronary artery of [place] heart without angina pectoris (Primary Dx); PAF (paroxysmal atrial fibrillation) (CMS/HCC) (HCC); Chronic anticoagulation; Nonrheumatic aortic (valve) stenosis; Hemodialysis-associat ed hypotension; ESRD (end stage renal disease) on dialysis (HCC); Other ascites from Last 3 Months Allergies No known active allergies Medications allopurinol (ZYLOPRIM) 300 mg tablet Take 0.5 tablets (150 mg total) by mouth every morning 3 9 Active gabapentin (NEURONTIN) 300 mg capsule Take 1 capsule (300 mg total) by mouth 3 (three) times a week 3 9 Active acetaminophen 500 mg capsuleIndicat ions:Pain Take 2 capsules (1,000 mg total) by mouth every 6 (six) hours as needed for pain 30 tablet 9 Active colchicine (COLCRYS) 0.6 mg tablet Take 1 tablet (0.6 mg total) by mouth daily as needed Active olopatadine (PATADAY) 0.2 % ophthalmic solution Administer 1 drop into both eyes daily as needed Active apixaban (ELIQUIS) 5 mg tabletIndicati ons:PAF (paroxysmal atrial fibrillation) (CMS/HCC) (HCC) Take 0.5 tablets (2.5 mg total) by mouth 2 (two) times a day 180 tablet 3 3 Active fluticasone (VERAMYST) 27.5 mcg/actuation nasal spray Administer 1 spray into each nostril as needed 2 Active sevelamer (RENVELA) 800 mg tablet Take 2 tablets (1,600 mg total) by mouth 3 (three) times a day with meals 3 Active glucosamine/ch ondroitin/C/Ma ng (GLUCOSAMINE 1500 COMPLEX ORAL) Take 1 capsule by mouth 2 (two) times a day Active amiodarone (PACERONE) 200 mg tablet Take 1 tablet (200 mg total) by mouth 2 (two) times a day 3 Active triamcinolone (KENALOG) 0.1 % cream APPLY CREAM TOPICALLY TWICE DAILY TO RASH FOR 2 WEEKS 3 Active midodrine (PROAMATINE) 5 mg tablet Take 2 tablets (10 mg total) by mouth 3 (three) times a day Active atorvastatin (LIPITOR) 20 mg tabletIndicati ons:Coronary artery disease of [place] artery of [place] heart with stable angina pectoris (HCC) Take 1 tablet by mouth once daily 90 tablet 4 Active Additional Information Patient taking differently: 40 mgoral Daily, Reported on 09/20/2024 lactulose 0.67 gram/mL solution TAKE 30ML(2 TABLESPOONSFUL) BY MOUTH TWICE DAILY FOR CONSTIPATION 4 Active docusate sodium (DOK) 100 mg tabletIndicati ons:constipati on Take 1 tablet (100 mg total) by mouth 2 (two) times a day Active aspirin 81 mg enteric coated tablet Take 1 tablet (81 mg total) by mouth every morning 025 Discontin ued(Thera py completed ) furosemide (LASIX) 20 mg tabletIndicati ons:Bilateral lower extremity edema TAKE 1 TABLET BY MOUTH ONCE DAILY NEEDED FOR SWELLING 90 tablet 1 2 025 Discontin ued(Thera py completed ) metoprolol XL (TOPROL-XL) 25 mg extended release tabletIndicati ons:PAF (paroxysmal atrial fibrillation) (CMS/HCC) (HCC) Take 0.5 tablets (12.5 mg total) by mouth nightly 45 tablet 3 4 025 Discontin ued(Thera py completed ) midodrine (PROAMATINE) 10 mg tablet Take 1 tablet (10 mg total) by mouth 3 (three) times a day 4 025 Discontin ued(Dupli cheryl order) Active Problems Problem Noted Date Diagnosed Date Cardiomyopathy 08/31/2024 Nonrheumatic mitral valve regurgitation 08/31/19 25 ESRD (end stage renal disease) on dialysis 12/03 Overview (12/03/2022): Added automatically from request for surgery [id number] Assessment & Plan (09/13/2024 9:37 AM COAL CONVEYOR OPERATOR): Patient is currently dialyzing through a right brachiocephalic fistula without any issues. Continue utilizing fistula for now. After speaking with Dr. Carrasquillo regarding the patient's current medical situation and circumstances and opting to go on palliative care, patient can follow-up on an as-needed basis. If he starts to have issues with a fistula or would require a fistulogram, discussion regarding a Perma catheter insertion can be had at that time. Assessment & Plan (2024 10:50 AM CDT): Current duplex shows the graft is patent has an outflow stenosis that has doubled since previous scan patient has also been having multiple episodes of prolonged bleeding. Discussed the need for fistulogram discussed procedure he has no questions at this time agrees and wishes to proceed. Assessment & Plan (12/08/2023 1:25 PM CDT): Will proceed with right arm AV fistulogram with possible intervention due to prolonged bleeding, high venous pressures. Risks of the procedure communicated understanding. Wished to proceed. Assessment & Plan (09/15/2023 3:15 PM COAL CONVEYOR OPERATOR): Impression: Patient is being dialyzed through a right brachiocephalic AV fistula without any complications. He recently underwent balloon angioplasty to the right subclavian vein for treatment of outflow stenosis. Audible bruit and palpable thrill noted on exam. Av duplex reveals a patent AV fistula. Suture to the right antecubital fossa is intact with no concern for infection. Plan: Sutures removed at bedside. -continue utilizing right upper extremity AV fistula for dialysis as per Nephrology. -patient to follow-up in 3 months for re-evaluation with repeat AV scan. Encouraged patient to make a sooner appointment if there is any complications during dialysis. Assessment & Plan (08/11/2023 1:31 PM COAL CONVEYOR OPERATOR): Dialyzing through a right brachiocephalic fistula. States he has been having prolonged bleeding the past sessions. Still having some minor oozing from the site on presentation to the access center. On exam no active bleeding seen. AV duplex today shows an outflow stenosis at the cephalic arch discussed the need for a fistulogram along with the procedure and its potential risks. Answered all questions at this time. He is agreeable wishes to proceed. Assessment & Plan (05/26/2023 11:25 AM CDT): Impression: Patient is status post right brachiocephalic AV fistula creation. He is being dialyzed through a Perma catheter without any complications. Audible bruit and palpable thrill noted on exam. Av duplex reveals a patent AV fistula. Plan: Patient may start utilizing AV fistula for dialysis starting tomorrow 05/27/2023. -patient to follow-up in 2-3 weeks to discuss Perma catheter removal if there are no complications such as prolonged bleeding after decannulation or high venous pressures while utilizing AV fistula during this timeframe. Patient voices understanding. -patient will also follow-up in 3 months for re-evaluation with AV scan. Assessment & Plan (04/01/2023 11:16 AM CDT): Patient following up recently had a brachiocephalic fistula created 03/05/2023 and is following up regarding symptoms of steal syndrome. Patient states his symptoms have significantly improved. He denies any decrease in sensory motor has strong braider setter his hand is warm. He denies any pain to his right hand. Continues to have intermittent paresthesia to 3 of the fingertips on his right hand but no other symptoms. His fistula has a good bruit and thrill on exam. It continues to mature. Continue dialyzing through the right Perma catheter. Follow-up in the next month to assess for maturity. Nonrheumatic aortic (valve) stenosis 04/22/2022 PAF (paroxysmal atrial fibrillation) (CMS/HCC) 0 03/10/2022 Assessment & Plan (08/11/2023 1:32 PM COAL CONVEYOR OPERATOR): Chronic controlled. Continue amiodarone Dizziness 01/27/2022 Sensorineural hearing loss (SNHL) of both ears 0 12/03/2021 Bilateral lower extremity edema 07/26/2021 Essential hypertension 04/09/2021 Assessment & Plan (09/13/2024 9:32 AM COAL CONVEYOR OPERATOR): Patient's blood pressure is now mostly labile and hypotensive. Continue midodrine as per his physician. Assessment & Plan (2024 10:49 AM CDT): Continue antihypertensives Assessment & Plan (09/15/2023 3:16 PM COAL CONVEYOR OPERATOR): Impression: Chronic and stable. Plan: Continue metoprolol Assessment & Plan (08/11/2023 1:24 PM COAL CONVEYOR OPERATOR): metoprolol Hyperlipidemia LDL goal <70 04/09/2021 Assessment & Plan (09/13/2024 9:31 AM COAL CONVEYOR OPERATOR): Controlled. Continue Lipitor Assessment & Plan (2024 10:49 AM CDT): Continue Lipitor Assessment & Plan (09/15/2023 3:16 PM COAL CONVEYOR OPERATOR): Impression: Chronic stable. 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 Erectile dysfunction 02/17/2019 Overview (02/17/2019): Added automatically from request for surgery [id number] Resolved Problems Problem Noted Date Diagnosed Date Resolved Date CKD (chronic kidney disease) stage 4, GFR 15-29 ml/min (CMS/HCC) 07/26/2021 09/15/2023 Class 2 obesity due to exces s calories without serious comorbidity with body mass index (BMI) of 36.0 to 36.9 in adult 04/09/2021 Urologic disorder 04/04/2019 04/04/2019 Immunizations Name Administration Dates Next Due Sars-CoV-2, Unspecified 12/01/2020 Social History Tobacco Use Types Packs/Day Years Used Date Smoking Tobacco: Never Passive Smoke Exposure: Past Smokeless Tobacco: Never Tobacco Cessation:Counseling Given: Not Answered Alcohol Use Standard Drinks/Week Comments Yes 0 (1 standard drink = 0.6 oz pur e alcohol) rare AUDIT-C Answer Date Recorded Q1: How often do you have a drink containing alc ohol? Never 08/28/2023 Average Number of Drinks Not on file 024 Frequency of Binge Drinking Not on file 12/2023 Personal Safety Answer Date Recorded Have you ever been in or are you currently in a harmful physical or emotional relationship or is someone making you feel afraid or unsafe? Denies 04/12/2024 Sex and Gender Information Value Date Recorded Sex Assigned at Not on file Legal Sex Male 8:18 AM CDT Gender Identity Not on file Sexual Orientation Not on file Last Filed Vital Signs Vital Sign Reading Time Taken Comments Blood Pressure 78/56 09/13/2024 8:39 AM COAL CONVEYOR OPERATOR Asymptomatic: states BP has been running on low side, denies any symptoms at this time. Pulse 60 09/13/2024 8:39 AM COAL CONVEYOR OPERATOR Temperature 36.7 C (98 F) 09/20/2024 12:22 PM COAL CONVEYOR OPERATOR Respiratory Rate 22 04/12/2024 10:3 0 AM CDT Oxygen Saturation 100% 09/13/2024 8:3 9 AM COAL CONVEYOR OPERATOR Inhaled Oxygen Concentration - - Weight 95.3 kg (210 lb) 09/20/2024 12:2 2 PM COAL CONVEYOR OPERATOR Height 188 cm (6' 2 ) 09/20/2024 12:22 PM COAL CONVEYOR OPERATOR Body Mass Index 26.96 09/20/2024 12:22 PM COAL CONVEYOR OPERATOR Plan of Treatment Not on file Medical Devices Implanted Type Area Software Administrator Device Identifier Shelf Expiration Date Model / Serial / Lot Coloplast Lux [id number] Titan Lock-Out Inflatable Self Contain Fluid Fill Tube Standard Latex Free - Sn/A - [id number] Implanted:Qty: 1 on 03/18/2019 by Angel Kiran MD at [facility] Other - see comments N/A: Penis Coloplast Lux 09/20/2023 [id number] / N/A / [id number] Description:PENIAL PROSTHESI S Coloplast Lux [id number] Titan Coloplast Lock-Out Inflatable Self Contain Fluid Fill Valve Latex Free - Sn/A - [id number] Implanted:Qty: 1 on 03/18/2019 by Angel Kiran MD at [facility] Other - see comments N/A: Penis Coloplast Lux 10/07/2023 [id number] / N/A / [id number] Description:PENILE PROSTHESI S Coloplast Lux [id number] Pros 0d Cyl 20cm Penile Ttn Otr Scrotum - Sn/A - [id number] Implanted:Qty: 1 on 03/18/2019 by Angel Kiran MD at [facility] Other - see comments N/A: Penis Coloplast Lux 11/29/2023 [id number] / N/A / [id number] Description:PENILE PROSTHESI S Stent Heart Description:x2 Procedures Procedure Name Priority Date/Time Associated Diagnosis Comments US HEMODIALYSIS ACCESS Schedule Routine, Read Routine (OP Routine) 09/13/2024 8:32 AM COAL CONVEYOR OPERATOR ESRD (end stage renal disease) on dialysis (HCC) Other complication of arteriovenous dialysis fistula, initial encounter ([facility]) PREALBUMIN Routine 08/11/2024 5:30 AM COAL CONVEYOR OPERATOR DIFFERENTIAL AUTO Routine 08/11/2024 5:3 0 AM COAL CONVEYOR OPERATOR CBC WITH AUTO DIFFERENTIAL Routine 08/11/2024 5:30 AM COAL CONVEYOR OPERATOR EGFR Routine 08/11/2024 5:30 AM COAL CONVEYOR OPERATOR COMPREHENSIVE METABOLIC PANEL Routine 08/11/2024 5:30 AM COAL CONVEYOR OPERATOR MAGNESIUM Routine 08/11/2024 5:30 AM COAL CONVEYOR OPERATOR PHOSPHORUS Routine 08/11/2024 5:30 AM COAL CONVEYOR OPERATOR POCT LIPID PANEL Routine 07/26/2024 8:43 AM COAL CONVEYOR OPERATOR Coronary artery disease involving [place] coronary artery of [place] heart without angina pectoris from Last 3 Months Results * US Hemodialysis Access (09/13/2024 8:32 AM COAL CONVEYOR OPERATOR) Anatomical Region Laterality Modality Vascular N/A Ultrasound 09/13/2024 Narrative 09/16/2024 8:16 AM COAL CONVEYOR OPERATOR Am[employer]ion Job ID: [id number] Am[employer]ion Document ID: [id number] Dictated date/time: [id number] RIGHT UPPER EXTREMITY HEMODIALYSIS DUPLEX REASON FOR EXAM End-stage renal disease. FINDINGS ON THE RIGHT The patient has a right brachiocephalic arteriovenous fistula. The arterial anastomosis peak systolic velocity is 185. Velocities are then 356, 49. The cephalic arch is 407, subclavian is 202. INTERPRETATION Patent right brachiocephalic arterial venous fistula, elevated velocities in the cephalic arch suggestive of stenosis. Job ID/Internal Job ID: [id number] Lance Carrasquillo MD [facility] US PROCEDURES Final Result * (ABNORMAL) eGFR (08/11/2024 5:30 AM COAL CONVEYOR OPERATOR) eGFR 7(L) >=60 mL/min/1. 73 m2 SARAH CAPPS Comment: Interpretive Data Reference Interval Normal >/= 90 mL/min/1.73m2 Mildly decreased* 60 - 89 mL/min/1.73m2 Mildly to moderately decreased 45 - 59 mL/min/1.73m2 Moderately to severely decreased 30 - 44 mL/min/1.73m2 Severely decreased 15 - 29 mL/min/1.73m2 Kidney Failure < 15 mL/min/1.73m2 *Relative to young adult level Estimated glomerular filtration rate is determined by the 2020 CKD-EPI equation recommended by the National Kidney Foundation (A Unifying Approach to GFR Estimation: Recommendations of the NKF-ASK Task Force on Reassessing the Inclusion of Race in Diagnosing Kidney Disease, JASN 2020). The CKD-EPI equation should not be used for patients with unstable renal function and has not been validated in children and those over 70. Current interpretive data was last reviewed 2021. Testing performed by: [address] [address] Blood 08/11/2024 5:30 AM COAL CONVEYOR OPERATOR 08/11/2024 9:09 AM COAL CONVEYOR OPERATOR us Notinfile Unknown LAB BLOOD ORDERABLES Final Res ult SARAH [facility] [address] Department of Laboratories [place], [place] [id number] * (ABNORMAL) Differential, auto (08/11/2024 5:30 AM COAL CONVEYOR OPERATOR) Neutrophil abs 6.4 1.5 - 6.5 K/cumm SARAH Comment:Testing performed by : [address] [address] Imm gran abs 0.1 0.0 - 0.1 K/cumm SARAH Comment:Testing performed by : [address] [address] Lymphocyte abs 0.6(L) 0.8 - 3.3 K/cumm SARAH Comment:Testing performed by : [address] [address] Monocyte abs 0.9(H) 0.2 - 0.8 K/cumm SARAH Comment:Testing performed by : [address] [address] Eosinophil abs 0.1 0.0 - 0.5 K/cumm SARAH Comment:Testing performed by : [address] [address] Basophil abs 0.1 0.0 - 0.1 K/cumm SARAH Comment:Testing performed by : [address] [address] Neutrophil pct 78.5 % SARAH Comment: Interpretive Data Percent cell count reference ranges are not reported, since discordance with absolute values may lead to misinterpretation of CBC data. Current Interpretive Data was last revised on 2017. Testing performed by: [address] [address] Imm gran pct 0.7 % SARAH Comment: Interpretive Data Percent cell count reference ranges are not reported, since discordance with absolute values may lead to misinterpretation of CBC data. Current Interpretive Data was last revised on 2017. Testing performed by: [address] [address] Lymphocyte pct 7.5 % SARAH Comment: Interpretive Data Percent cell count reference ranges are not reported, since discordance with absolute values may lead to misinterpretation of CBC data. Current Interpretive Data was last revised on 2017. Testing performed by: [address] [address] Monocyte pct 11.5 % SARAH Comment: Interpretive Data Percent cell count reference ranges are not reported, since discordance with absolute values may lead to misinterpretation of CBC data. Current Interpretive Data was last revised on 2017. Testing performed by: [address] [address] Eosinophil pct 1.2 % SARAH Comment: Interpretive Data Percent cell count reference ranges are not reported, since discordance with absolute values may lead to misinterpretation of CBC data. Current Interpretive Data was last revised on 2017. Testing performed by: [address] [address] Basophil pct 0.6 % [facility] Comment: Interpretive Data Percent cell count reference ranges are not reported, since discordance with absolute values may lead to misinterpretation of CBC data. Current Interpretive Data was last revised on 2017. Testing performed by: [address] [address] Blood 08/11/2024 5:30 AM COAL CONVEYOR OPERATOR 08/11/2024 9:09 AM COAL CONVEYOR OPERATOR us Notinfile Unknown LAB BLOOD ORDERABLES Final Res ult SARAH CAPPS [address] [facility] Department [place] [address] * (ABNORMAL) CBC with auto differential (08/11/2024 5:30 AM COAL CONVEYOR OPERATOR) WBC 8.1 3.8 - 9.9 K/cumm SARAH CAPPS Comment:Testing performed by : [address] [address] Hgb 10.8(L) 13.0 - 17.5 g/dL SARAH CAPPS Comment:Testing performed by : [address] [address] Hct 31.5(L) 38.9 - 50.3 % SARAH CAPPS Comment:Testing performed by : [address] [address] Plt 295 150 - 400 K/cumm SARAH CAPPS Comment:Testing performed by : [address] [address] MPV 10.9 9.1 - 12.3 fL SARAH CAPPS Comment:Testing performed by : [address] [address] RBC 3.06(L) 4.30 - 5.80 M/cumm SARAH CAPPS Comment:Testing performed by : [address] [address] MCV 102.9(H) 81.3 - 96.4 fL SARAH CAPPS Comment:Testing performed by : [address] [address] MCH 35.3(H) 27.1 - 33.3 pg SARAH CAPPS Comment:Testing performed by : [address] [address] MCHC 34.3 32.3 - 35.7 g/dL SARAH CAPPS Comment:Testing performed by : [address] [address] RDW CV 14.6 11.1 - 14.9 % SARAH CAPPS Comment:Testing performed by : [address] [address] RDW SD 52.8(H) 35.7 - 48.1 fL SARAH CAPPS Comment:Testing performed by : [address] [address] NRBC abs 0.00 0.00 - 0.01 K/cumm SARAH Comment:Testing performed by : [address] [address] Blood 08/11/2024 5:30 AM COAL CONVEYOR OPERATOR 08/11/2024 9:09 AM COAL CONVEYOR OPERATOR us Notinfile Unknown LAB BLOOD ORDERABLES Final Res ult Performing Organization Address City/[facility]/ZIP Co de Phone Number [id number] [place] [place] [address] * (ABNORMAL) Prealbumin (08/11/2024 5:30 AM COAL CONVEYOR OPERATOR) Prealbumin 13.6(L) 20.0 - 40.0 mg/dL SARAH Blood 08/11/2024 5:30 AM COAL CONVEYOR OPERATOR 08/11/2024 11:07 AM COAL CONVEYOR OPERATOR us Notinfile Unknown LAB BLOOD ORDERABLES Final Res ult Performing Organization Address City/[facility] Co de Phone Number [address] [place] [address] * (ABNORMAL) Phosphorus (08/11/2024 5:30 AM COAL CONVEYOR OPERATOR) Phosphorus, pl 5.8(H) 2.3 - 4.5 mg/dL SARAH Comment:Testing performed by : [address] [address] Blood 08/11/2024 5:30 AM COAL CONVEYOR OPERATOR 08/11/2024 9:09 AM COAL CONVEYOR OPERATOR us Notinfile Unknown LAB BLOOD ORDERABLES Final Res ult Performing Organization Address City/[facility]/ZIP Co de Phone Number SARAH [address] [facility] [place] [address] * Magnesium (08/11/2024 5:30 AM COAL CONVEYOR OPERATOR) Pathologist [facility] Magnesium 2.4 1.4 - 2.5 mg/dL SARAH Comment:Testing performed by : [address] [address] Blood 08/11/2024 5:30 AM COAL CONVEYOR OPERATOR 08/11/2024 9:09 AM COAL CONVEYOR OPERATOR us Notinfile Unknown LAB BLOOD ORDERABLES Final Res ult Performing Organization Address [facility] Co de Phone Number SARAH [address] [facility] [place] [address] * (ABNORMAL) Comprehensive metabolic panel (08/11/2024 5:30 AM COAL CONVEYOR OPERATOR) Pathologist [facility] Sodium 136 135 - 145 mmol/L SARAH Comment:Testing performed by : [address] [address] Potassium, pl 4.9 3.3 - 4.9 mmol/L SARAH Comment:Testing performed by : [address] [address] Chloride 96(L) 97 - 110 mmol/L SARAH Comment:Testing performed by : [address] [address] CO2 23 22 - 32 mmol/L SARAH Comment:Testing performed by : [address] [address] Anion gap 17(H) 2 - 15 mmol/L SARAH Comment:Testing performed by : [address] [address] BUN 60(H) 6 - 25 mg/dL SARAH Comment:Testing performed by : [address] [address] Creatinine 6.80(H) 0.80 - 1.30 mg/dL SARAH Comment:Testing performed by : [address] [address] Glucose 92 70 - 199 mg/dL SARAH Comment: Interpretive Data Fasting glucose >/= 126 mg/dl is diagnostic for diabetes. Fasting is defined as no caloric intake for at least 8 hours. Fasting glucose between 100 mg/dl to 125 mg/dl is diagnostic of prediabetes. In a patient with classic symptoms of hyperglycemia or hyperglycemic crisis, a random glucose >/= 200 mg/dl is diagnostic for diabetes. In the absence of unequivocal hyperglycemia, results should be confirmed by repeat testing. The classification and Diagnosis of Diabetes Diabetes Care 2021; 46: S19-S40. Current interpretive data was last revised 2022. Testing performed by: [address] [address] Calcium 10.8(H) 8.5 - 10.3 mg/dL SARAH Comment:Testing performed by : [address] [address] Bilirubin, total 1.4(H) 0.1 - 1.2 mg/dL SARAH Comment:Testing performed by : [address] [address] Protein, pl 6.4(L) 6.5 - 8.5 g/dL SARAH Comment:Testing performed by : [address] [address] Albumin 3.9 3.5 - 5.0 g/dL SARAH Comment:Testing performed by : [address] [address] Alk phos 196(H) 40 - 130 Units/L SARAH Comment:Testing performed by : [address] [address] ALT 15 7 - 55 Units/L SARAH Comment:Testing performed by : [address] [address] AST 9(L) 10 - 50 Units/L SARAH Comment:Testing performed by : [address] [address] Blood 08/11/2024 5:30 AM COAL CONVEYOR OPERATOR 08/11/2024 9:09 AM COAL CONVEYOR OPERATOR us Notinfile Unknown LAB BLOOD ORDERABLES Final Res ult SARAH MH [address] [facility] Department [place] [address] * POCT lipid panel (07/26/2024 8:43 AM COAL CONVEYOR OPERATOR) Cholesterol, POC 100 mg/dL HDL, POC 30 mg/dL Triglycerides, POC 50 mg/dL LDL Cholesterol POC 58 mg/dL Chol/HDL Ratio, POC - Non-HDL Cholesterol, POC - mg/dL Cholesterol Total, POC 100 mg/dL Capillary blood 07/26/2024 8 :43 AM COAL CONVEYOR OPERATOR Sonia Jacobs NP POINT OF CARE TEST ORDERA BLES Final Result from Last 3 Months Insurance MEDICARE [facility] MEDICARE [facility] MEDICARE [facility] Advance Directives For more information, please contact: [phone] * Full Code (Latest Code Status on File) Date Activated Date Inactivated Comments 03/18/2019 2:27 PM 03/19/2019 6:43 PM Care Teams Welfare Eligibility Worker Relationship Specialty Start Date End Date Dickson Land MD [address] [place] [address] [address] [place] [address] PCP - General Family Medicine 01/27/19 Dionicio Carrasquillo MD [address] [facility] [address] [place] [address] Surgeon Surgery 03/05/23
--- OUTSIDE RECORDS SUMMARY | 2024-09-29 10:48 | XMS_ITS | Patient Health Summary ---
Author Organization [facility] Address [address] [place] [address] Care Team Providers Care Customs Verifier Name Role Phone Dickson Land MD Primary Care Provider [phone] Note from [facility],non-owned Affiliates and Associated Physician Practices is amultiple site organization consisting of ambulatory clinics and hospital sitesin [place], [place]. This disclosure is being madepursuant to the Care Everywhere program and may not contain all information available regarding this patient. Last updated 18.[facility] Social History Tobacco Use Types Packs/Day Years Used Date Smoking Tobacco: Never Assessed Sex and Gender Information Value Date Recorded Sex Assigned at Not on file Gender Identity Not on file Sexual Orientation Not on file Care Teams Customs Verifier Relationship Specialty Start Date End Date Dickson Land MD [address] [place] [address] PCP - General Family Medicine 03/30/24
--- OUTSIDE RECORDS SUMMARY | 2024-09-29 10:48 | XMS_ITS | Clinical Summary ---
Author Organization [facility] Address [address] [place] [address] Phone Care Team Providers Care Shader And Toner Name Role Phone Dickson Land MD Primary Care Provider [phone] Allergies No known active allergies Medications Medication Sig Dispensed Refills Start Date End Date Status allopurinol (ZYLOPRIM) 300 MG tablet 12/08/2020 Active atorvastatin (LIPITOR) 20 MG tablet Take 20 mg by mouth 1 (one) time each day 12/08/2020 Active gabapentin (NEURONTIN) 300 MG capsule TAKE 1 CAPSULE BY MOUTH IN THE MORNING 12/08/2020 Active gabapentin (NEURONTIN) 400 MG capsule Take 400 mg by mouth every night 12/08/2020 Active metoprolol tartrate (LOPRESSOR) 25 MG tablet Take 25 mg by mouth 2 times daily 12/18/2020 Active amLODIPine (NORVASC) 2.5 MG tablet Take 2.5 mg by mouth daily 12/19/2020 Active aspirin EC 81 MG EC tablet Take 81 mg by mouth daily Active cyclobenzaprine (FLEXERIL) 10 MG tablet TAKE 1 TABLET BY MOUTH THREE TIMES DAILY FOR MUSCLE SPASM 11/27/2020 Active Active Problems Problem Noted Date Diagnosed Date Sensorineural hearing loss, bilateral 12/03/2021 Bilateral lower limb edema 07/26/2021 Chronic kidney disease stage 4 07/26/2021 Hyperlipidemia 04/09/2021 Obesity 04/09/2021 Bilateral impacted cerumen 03/05/2021 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 03/05/2021 Chest pain 12/18/2020 Chronic kidney disease 12/18/2020 Coronary atherosclerosis 12/18/2020 History of myocardial infarction 12/18/2020 Hypertensive disorder 12/18/2020 Erectile dysfunction 02/17/2019 Overview (01/28/2021): Added automatically from request for surgery [id number] Immunizations Name Administration Dates Next Due Sars-cov-2, Unspecified 12/01/2020 Family History Medical History Relation Comments Stroke Mother Relation Status Comments Mother Social History Tobacco Use Types Packs/Day Years Used Date Smoking Tobacco: Never Smokeless Tobacco: Never Alcohol Use Standard Drinks/Week Comments Yes 0 (1 standard drink = 0.6 oz pur e alcohol) Sex and Gender Information Value Date Recorded Sex Assigned at Not on file Gender Identity Not on file Sexual Orientation Not on file Last Filed Vital Signs Vital Sign Reading Time Taken Comments Blood Pressure 136/74 12/18/2021 9:11 AM CDT Pulse - - Temperature 36.6 C (97.8 F) 12/18/2021 9:11 AM CDT Respiratory Rate 18 12/18/2021 9:11 AM CDT Oxygen Saturation - - Inhaled Oxygen Concentration - - Weight 126 kg (278 lb) 12/18/2021 9:11 AM CDT Height 185.4 cm (6' 1 ) 12/18/2021 9:11 AM CDT Body Mass Index 36.68 12/18/2021 9:11 AM CDT Plan of Treatment Health Maintenance Due Date Last Done Comments Pneumococcal PPSV23/PCV13 65 + Years / Low and Medium Risk (2 of 3 - PPSV23 or PCV20) 02/26/2017 02/27/2016 Influenza Vaccine (#1) 2024 9, 05/25/2018, 08/07/2016 Care Teams Shader And Toner Relationship Specialty Start Date End Date Dickson Land MD [address] [facility] [address] [facility] [address] [place] [address] PCP - General Internal Medicine 12/28/20
--- OUTSIDE RECORDS SUMMARY | 2024-09-29 10:48 | XMS_ITS | Encounter Summary ---
Author Organization [facility] Address [address] [place] [address] Care Team Providers Care Ore Mixer Name Role Phone Dickson Land MD Primary Care Provider [phone] Reason for Visit * Reason Onset Date Comments A-FIB 08/02/2024 [employer] secure chat to Dr. Steward's group Dialysis management 08/02/2024 Spoke w/Van at Dr. Larsen' jarrod Encounter Details Date Type Department Care Team (Late st Contact Info) Description 08/02/2024 [facility]phone [facility] Admitting [address] [place] [address] [place] [address] [place] [address] A-FIB ([employer] chat to Dr. Steward'juan manuel group); Dialysis management (Spoke w/Van at Dr. Thelma garay) Social History Tobacco Use Types Packs/Day Years Used Date Smoking Tobacco: Never Smokeless Tobacco: Never Alcohol Use Standard Drinks/Week Comments Yes 0 (1 standard drink = 0.6 oz pur e alcohol) occasionally Feeling Safe Answer Date Recorded Are you in a relationship wi th someone who hurts you emotionally and/or physically? No 08/02/2024 Food Insecurity Answer Date Recorded Social/Environmental Concerns No concerns Transportation Needs Answer Date Record ed Social/Environmental Concerns No concerns Housing Stability Answer Date Recorded Social/Environmental Concerns No concerns Utility Needs Answer Date Recorded Social/Environmental Concerns No concerns Sex and Gender Information Value Date Recorded Sex Assigned at Not on file Legal Sex Male 3:00 PM CDT Gender Identity Not on file Sexual Orientation Not on file documented as of this encounter Plan of Treatment Upcoming Encounters Date Type Department Care Team (Late st Contact Info) Description 10/12/2024 3:30 PM FIELD CROP HARVEST WORKER Office Visit [facility] - [address] [facility] [address] [address] [facility] [address] [place] [address] documented as of this encounter Visit Diagnoses Not on filedocumented in this encounter Additional Health Concerns Infection Onset Date Last Indicated Resolved Time R/O GI Pathogen 08/02/2024 08/02/2024 08/03/2024 6 :30 AM FIELD CROP HARVEST WORKER R/O C. diff 08/04/2024 08/04/2024 08/05/2024 7:00 AM FIELD CROP HARVEST WORKER documented as of this encounter Care Teams Ore Mixer Relationship Specialty Start Date End Date Dickson Land MD [address] [place] [address] PCP - General Family Practice 04/17/22 documented as of this encounter
--- OUTSIDE RECORDS SUMMARY | 2024-09-29 10:48 | XMS_ITS | Clinical Summary ---
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 Assessment & Plan (09/15/2023 3:15 PM ELECTRIC WIRER): Impression: Patient is being dialyzed through a [...] dialysis. Assessment & Plan (08/11/2023 1:31 PM ELECTRIC WIRER): Dialyzing through a right brachiocephalic fistula. 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 He denies any [...] 03/10/2022 Assessment & Plan (08/11/2023 1:32 PM ELECTRIC WIRER): Chronic controlled. Continue amiodarone Dizziness 01/27/2022 Sensorineural hearing loss (SNHL) of both ears 0 12/03/2021 Bilateral lower extremity edema 07/26/2021 Essential hypertension 04/09/2021 Assessment & Plan (09/13/2024 9:32 AM ELECTRIC WIRER): Patient's blood pressure is now mostly labile and hypotensive. Continue midodrine as per his physician. Assessment & Plan (2024 10:49 AM CDT): Continue antihypertensives Assessment & Plan (09/15/2023 3:16 PM ELECTRIC WIRER): Impression: Chronic and stable. Plan: Continue metoprolol Assessment & Plan (08/11/2023 1:24 PM ELECTRIC WIRER): metoprolol Hyperlipidemia LDL goal <70 04/09/2021 Assessment & Plan (09/13/2024 9:31 AM ELECTRIC WIRER): Controlled. Continue Lipitor Assessment & Plan (2024 10:49 AM CDT): Continue Lipitor Assessment & Plan (09/15/2023 3:16 PM ELECTRIC WIRER): Impression: Chronic stable. 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 04/09/2021 Bilateral impacted cerumen 03/05/2021 Chronic eczematous otitis externa of left ear Erectile dysfunction 02/17/2019 Overview (02/17/2019): Added automatically from request for surgery [id number] Resolved Problems Problem Noted Date Diagnosed Date Resolved Date CKD (chronic kidney disease) stage 4, GFR 15-29 ml/min (CMS/HCC) 07/26/2021 09/15/2023 Class 2 obesity due to exces s calories without serious comorbidity with body mass index (BMI) of 36.0 to 36.9 in adult 04/09/2021 Urologic disorder 04/04/2019 04/04/2019 Encounters Date Type Department Care Team Description 09/20/2024 11:30 AM ELECTRIC WIRER Office Visit [facility] Otolaryngology [address] [address] [facility] 1st Floor, [address] [place] [address] Ravi Palm II, MD Sensorineural hearing loss (SNHL) of both ears (Primary Dx); Bilateral impacted cerumen 09/19/2024 Telephone [facility] at [address] [place] [address] Malka Woo MARGIN ANALYST Updating medication list 09/13/2024 7:50 AM ELECTRIC WIRER - 09/13/2024 11:59 PM ELECTRIC WIRER Hospital Encounter [facility] Medical Office Building [address] [place] [address] [place] [id number] ESRD (end stage renal disease) on dialysis ([facility]); Other complication of arteriovenous dialysis fistula, initial encounter ([facility]) Discharge Disposition: Discharge to home or self care 09/13/2024 7:50 AM ELECTRIC WIRER - 09/13/2024 11:59 PM ELECTRIC WIRER Hospital Encounter [facility] Dialysis Access Center at [address] [place] [address] ESRD (end stage renal disease) on dialysis (HCC) (Primary Dx); Other complication of arteriovenous dialysis fistula, initial encounter ([facility]); Hyperlipidemia LDL goal <70; Essential hypertension Discharge Disposition: Discharge to home or self care 08/31/2024 1:30 PM ELECTRIC WIRER Office Visit [facility] Cardiology [address] [place] [address] Angel Chow MD PAF (paroxysmal atrial fibrillation) ([facility]/HCC) (HCC) (Primary Dx); Nonrheumatic aortic (valve) stenosis; Hyperlipidemia LDL goal <70; Essential hypertension; 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 ([facility]); Nonrheumatic mitral valve regurgitation; Cardiomyopathy, unspecified type ([facility]) 08/11/2024 Orders Only [facility] [phone] Unknown, Notinfile 07/26/2024 8:30 AM ELECTRIC WIRER Office Visit [facility] Cardiology [address] [place] [address] Sonia Jacobs NP Coronary artery disease involving alturas coronary artery of alturas heart without angina pectoris (Primary Dx); PAF (paroxysmal atrial fibrillation) (CMS/HCC) ([facility]); Chronic anticoagulation; Nonrheumatic aortic (valve) stenosis; Hemodialysis-associat ed hypotension; ESRD (end stage renal disease) on dialysis (HCC); Other ascites from Last 3 Months Immunizations Name Administration Dates Next Due Sars-CoV-2, Unspecified 12/01/2020 Surgical History Surgery Date Site/Laterality Comments APPENDECTOMY 08/24/1944 - 08/23/1945 TONSILLECTOMY 08/24/1955 - 08/23/1956 KNEE ARTHROSCOPY 08/24/1993 - 08/23/1994 Left CARDIAC STENT PLACEMENT 08/24/2010 - 08/23/2011 x2 CORONARY ANGIOPLASTY NEPHRECTOMY 07/24/2022 - 08/23/2022 Left for cancer TUNNELED VENOUS CATHETER PLACEMENT 02/11/2022 Right RIJ permacath - Dr. Palm (removed 07/06/23 - Dr. Lance Carrasquillo) PENILE PROSTHESIS IMPLANT 08/24/2018 - 08/23/2019 Inflatable penile prosthesis implantation DIALYSIS FISTULA CREATION 03/05/2023 Right RUE brachiocephalic AVF creation - Dr. Dionicio Carrasquillo AV FISTULA REPAIR 08/28/2023 Right DCB subclavian vein - Dr. Dionicio Carrasquillo AV FISTULA REPAIR 12/15/2023 Right RUE AVF - DCB cephalic vein AVF - Dr. Dionicio Carrasquillo AV FISTULA REPAIR 04/12/2024 Right RUE AVF - DCB subclavian & AVF - Dr. Dionicio Carrasquillo Medical History Medical History Date Comments Hypertension Erectile dysfunction Gout DVT (deep venous thrombosis) (CMS/HCC) (HCC) 1993 CAD (coronary artery disease) ED (erectile dysfunction) CKD (chronic kidney disease) MS, old PONV (postoperative nausea and vomiting) Allergic rhinitis Heart attack (HCC) 2010 Hyperlipidemia Cancer (CMS/HCC) (HCC) kidney Obesity Bruises easily Hemodialysis patient (CMS/HCC) (HCC) [facility] Ear problems Family History Medical History Relation Name Comments Thyroid disease Brother Stroke Father Stroke Mother Anesthesia problems Neg Hx Relation Name Status Comments Brother Alive Father (Age 71) Mother (Age 85) Social History Tobacco Use Types Packs/Day Years [...] on file Sexual Orientation Not on file Obstetrics History Last Filed Vital Signs Vital Sign Reading Time Taken Comments Blood Pressure 78/56 09/13/2024 8:39 AM ELECTRIC WIRER Asymptomatic: states BP has been running on low side, denies any symptoms at this time. Pulse 60 09/13/2024 8:39 AM ELECTRIC WIRER Temperature 36.7 C (98 F) 09/20/2024 12:22 PM ELECTRIC WIRER Respiratory Rate 22 04/12/2024 10:3 0 AM CDT Oxygen Saturation 100% 09/13/2024 8:3 9 AM ELECTRIC WIRER Inhaled Oxygen Concentration - - Weight 95.3 kg (210 lb) 09/20/2024 12:2 2 PM ELECTRIC WIRER Height 188 cm (6' 2 ) 09/20/2024 12:22 PM ELECTRIC WIRER Body Mass Index 26.96 09/20/2024 12:22 PM ELECTRIC WIRER Plan of Treatment Health Maintenance Due Date Last Done Comments Depression Screening 1941 Hepatitis B Screening 1959 Well Visit 65+ 2006 Influenza Vaccine (#1) 2024 0, 05/31/2019, 05/25/2018, Additional history exists Fall Risk Assessment 04/12/2025 04/12/2024 DTaP/Tdap/Td Vaccine (2 - Td or Tdap) 12/02/2028 12/02/2018 Zoster Vaccine Completed 08/23/2018, 05/25/2018 Pneumococcal vaccine 65+ Completed 12/02/2018, 0701/2016 Medical Devices Implanted Type Area Environmental Health Safety Manager Device Identifier Shelf Expiration Date Model / Serial / Lot Coloplast Lux [id number] Titan Lock-Out Inflatable Self Contain Fluid Fill Tube Standard Latex Free - Sn/A - [id number] Implanted:Qty: 1 on 03/18/2019 by Angel Kiran MD at [facility] Other - see comments N/A: Penis Coloplast Lux 09/20/2023 [id number] / N/A / [id number] Description:PENIAL PROSTHESI S Coloplast Lux [id number] Titan Coloplast Lock-Out Inflatable Self Contain Fluid Fill Valve Latex Free - Sn/A - [id number] Implanted:Qty: 1 on 03/18/2019 by Angel Kiran MD at [facility] Other - see comments N/A: Penis Coloplast Lux 10/07/2023 [id number] / N/A / [id number] Description:PENILE PROSTHESI S Coloplast Lux [id number] Pros 0d Cyl 20cm Penile Ttn Otr Scrotum - Sn/A - [id number] Implanted:Qty: 1 on 03/18/2019 by Angel Kiran MD at [facility] Other - see comments N/A: Penis Coloplast Lux 11/29/2023 [id number] / N/A / [id number] Description:PENILE PROSTHESI S Stent Heart Description:x2 Procedures Procedure Name Priority Date/Time Associated Diagnosis Comments US HEMODIALYSIS ACCESS Schedule Routine, Read Routine (OP Routine) 09/13/2024 8:32 AM ELECTRIC WIRER ESRD (end stage renal disease) on dialysis (HCC) Other complication of arteriovenous dialysis fistula, initial encounter ([facility]) PREALBUMIN Routine 08/11/2024 5:30 AM ELECTRIC WIRER DIFFERENTIAL AUTO Routine 08/11/2024 5:3 0 AM ELECTRIC WIRER CBC WITH AUTO DIFFERENTIAL Routine 08/11/2024 5:30 AM ELECTRIC WIRER EGFR Routine 08/11/2024 5:30 AM ELECTRIC WIRER COMPREHENSIVE METABOLIC PANEL Routine 08/11/2024 5:30 AM ELECTRIC WIRER MAGNESIUM Routine 08/11/2024 5:30 AM ELECTRIC WIRER PHOSPHORUS Routine 08/11/2024 5:30 AM ELECTRIC WIRER POCT LIPID PANEL Routine 07/26/2024 8:43 AM ELECTRIC WIRER Coronary artery disease involving alturas coronary artery of alturas heart without angina pectoris from Last 3 Months Results * US Hemodialysis Access (09/13/2024 8:32 AM ELECTRIC WIRER) Anatomical Region Laterality Modality Vascular N/A Ultrasound 09/13/2024 Narrative 09/16/2024 8:16 AM ELECTRIC WIRER [employer] Job ID: [id number] [employer] Document ID: [id number] Dictated date/time: [id number] RIGHT UPPER EXTREMITY HEMODIALYSIS DUPLEX REASON FOR [...] suggestive of stenosis. Job ID/Internal Job ID: [id number] us Lance Carrasquillo MD [facility] Final Result * (ABNORMAL) eGFR (08/11/2024 5:30 AM ELECTRIC WIRER) eGFR 7(L) >=60 mL/min/1. 73 m2 SARAH [...] of Race in Diagnosing Kidney Disease, JASN 202). The CKD-EPI equation should not be used for patients with unstable renal function and has not been validated in children and those over 70. Current interpretive data was last reviewed 2021. Testing performed by: [address] [address] Blood 08/11/2024 5:30 AM ELECTRIC WIRER 08/11/2024 9:09 AM ELECTRIC WIRER us Notinfile Unknown LAB BLOOD ORDERABLES Final Res ult SARAH [facility] Department [place] [address] * (ABNORMAL) Differential, auto (08/11/2024 5:30 AM ELECTRIC WIRER) Neutrophil abs 6.4 1.5 - 6.5 K/cumm SARAH Comment:Testing performed by : [address] [address] Imm gran abs 0.1 0.0 - 0.1 K/cumm SARAH Comment:Testing performed by : [address] [address] Lymphocyte abs 0.6(L) 0.8 - 3.3 K/cumm SARAH Comment:Testing performed by : [address] [address] Monocyte abs 0.9(H) 0.2 - 0.8 K/cumm SARAH Comment:Testing performed by : [address] [address] Eosinophil abs 0.1 0.0 - 0.5 K/cumm SARAH Comment:Testing performed by : [address] [place]., [address] Basophil abs 0.1 0.0 - 0.1 K/cumm SARAH Comment:Testing performed by : [address] [address] Neutrophil pct 78.5 % [facility] Comment: Interpretive Data Percent cell count reference ranges are not reported, since discordance with absolute values may lead to misinterpretation of CBC data. Current Interpretive Data was last revised on 2017. Testing performed by: [address] [address] Imm gran pct 0.7 % [facility] Comment: Interpretive Data Percent cell count reference ranges are not reported, since discordance with absolute values may lead to misinterpretation of CBC data. Current Interpretive Data was last revised on 2017. Testing performed by: [address] [address] Lymphocyte pct 7.5 % [facility] Comment: Interpretive Data Percent cell count reference ranges are not reported, since discordance with absolute values may lead to misinterpretation of CBC data. Current Interpretive Data was last revised on 2017. Testing performed by: [address] [address] Monocyte pct 11.5 % [facility] Comment: Interpretive Data Percent cell count reference ranges are not reported, since discordance with absolute values may lead to misinterpretation of CBC data. Current Interpretive Data was last revised on 2017. Testing performed by: [address] [address] Eosinophil pct 1.2 % [facility] Comment: Interpretive Data Percent cell count reference ranges are not reported, since discordance with absolute values may lead to misinterpretation of CBC data. Current Interpretive Data was last revised on 2017. Testing performed by: [address] [address] Basophil pct 0.6 % [facility] Comment: Interpretive Data Percent cell count reference ranges are not reported, since discordance with absolute values may lead to misinterpretation of CBC data. Current Interpretive Data was last revised on 2017. Testing performed by: [address] [address] Blood 08/11/2024 5:30 AM ELECTRIC WIRER 08/11/2024 9:09 AM ELECTRIC WIRER us Notinfile Unknown LAB BLOOD ORDERABLES Final Res ult SARAH [address] [facility] Department [place] [address] * (ABNORMAL) CBC with auto differential (08/11/2024 5:30 AM ELECTRIC WIRER) Pathologist [facility] WBC 8.1 3.8 - 9.9 K/cumm SARAH CAPPS Comment:Testing performed by : [address] [address] Hgb 10.8(L) 13.0 - 17.5 g/dL SARAH Comment:Testing performed by : [address] [address] Hct 31.5(L) 38.9 - 50.3 % SARAH Comment:Testing performed by : [address] [address] Plt 295 150 - 400 K/cumm SARAH Comment:Testing performed by : [address] [address] MPV 10.9 9.1 - 12.3 fL SARAH CAPPS Comment:Testing performed by : [address] [address] RBC 3.06(L) 4.30 - 5.80 M/cumm SARAH Comment:Testing performed by : [address] [address] MCV 102.9(H) 81.3 - 96.4 fL SARAH CAPPS Comment:Testing performed by : [address] [address] MCH 35.3(H) 27.1 - 33.3 pg SARAH CAPPS Comment:Testing performed by : [address] [address] MCHC 34.3 32.3 - 35.7 g/dL SARAH CAPPS Comment:Testing performed by : [address] [address] RDW CV 14.6 11.1 - 14.9 % SARAH Comment:Testing performed by : [address] [address] RDW SD 52.8(H) 35.7 - 48.1 fL SARAH Comment:Testing performed by : [address] [address] NRBC abs 0.00 0.00 - 0.01 K/cumm SARAH Comment:Testing performed by : [address], [address] Blood 08/11/2024 5:30 AM ELECTRIC WIRER 08/11/2024 9:09 AM ELECTRIC WIRER us Notinfile Unknown LAB BLOOD ORDERABLES Final Res ult Performing Organization Address [facility] de Phone Number [id number] [employer] [place] [address] * (ABNORMAL) Prealbumin (08/11/2024 5:30 AM ELECTRIC WIRER) Prealbumin 13.6(L) 20.0 - 40.0 mg/dL SARAH Blood 08/11/2024 5:30 AM ELECTRIC WIRER 08/11/2024 11:07 AM ELECTRIC WIRER Notinfile Unknown LAB BLOOD ORDERABLES Final Res ult Performing Organization Address [facility] de Phone Number [address] [place] [address] * (ABNORMAL) Phosphorus (08/11/2024 5:30 AM ELECTRIC WIRER) Phosphorus, pl 5.8(H) 2.3 - 4.5 mg/dL SARAH Comment:Testing performed by : [address], [address] Blood 08/11/2024 5:30 AM ELECTRIC WIRER 08/11/2024 9:09 AM ELECTRIC WIRER us Notinfile Unknown LAB BLOOD ORDERABLES Final Res ult Performing Organization Address City/[facility]/ZIP Co de Phone Number SARAH [address] [place] [address] * Magnesium (08/11/2024 5:30 AM ELECTRIC WIRER) Magnesium 2.4 1.4 - 2.5 mg/dL SARAH Comment:Testing performed by : [address] [address] Blood 08/11/2024 5:30 AM ELECTRIC WIRER 08/11/2024 9:09 AM ELECTRIC WIRER us Notinfile Unknown LAB BLOOD ORDERABLES Final Res ult Performing Organization Address [facility] Co de Phone Number SARAH [facility] [place] [address] * (ABNORMAL) Comprehensive metabolic panel (08/11/2024 5:30 AM ELECTRIC WIRER) Sodium 136 135 - 145 mmol/L SARAH Comment:Testing performed by : [address] [address] Potassium, pl 4.9 3.3 - 4.9 mmol/L SARAH Comment:Testing performed by : [address] [address] Chloride 96(L) 97 - 110 mmol/L SARAH Comment:Testing performed by : [address] [address] CO2 23 22 - 32 mmol/L SARAH Comment:Testing performed by : [address] [address] Anion gap 17(H) 2 - 15 mmol/L SARAH Comment:Testing performed by : [address] [address] BUN 60(H) 6 - 25 mg/dL SARAH Comment:Testing performed by : [address] [address] Creatinine 6.80(H) 0.80 - 1.30 mg/dL [facility] Comment:Testing performed by : [address] [address] Glucose 92 70 - 199 mg/dL [facility] Comment: Interpretive Data Fasting glucose >/= 126 [...] classification and Diagnosis of Diabetes Diabetes Care 202; 46: S19-S40. Current interpretive data was last revised 2022. Testing performed by: [address] [address] Calcium 10.8(H) 8.5 - 10.3 mg/dL [facility] Comment:Testing performed by : [address] [address] Bilirubin, total 1.4(H) 0.1 - 1.2 mg/dL [facility] Comment:Testing performed by : [address] [address] Protein, pl 6.4(L) 6.5 - 8.5 g/dL [facility] Comment:Testing performed by : [address] [address] Albumin 3.9 3.5 - 5.0 g/dL [facility] Comment:Testing performed by : [address] [address] Alk phos 196(H) 40 - 130 Units/L [facility] Comment:Testing performed by : [address] [address] ALT 15 7 - 55 Units/L [facility] Comment:Testing performed by : [address] [address] AST 9(L) 10 - 50 Units/L [facility] Comment:Testing performed by : [address] [address] Blood 08/11/2024 5:30 AM ELECTRIC WIRER 08/11/2024 9:09 AM ELECTRIC WIRER Notinfile Unknown LAB BLOOD ORDERABLES Final Res ult SARAH [address] [facility] Department [place] [address] * POCT lipid panel (07/26/2024 8:43 AM ELECTRIC WIRER) Cholesterol, POC 100 mg/dL HDL, POC 30 mg/dL Triglycerides, POC 50 mg/dL LDL Cholesterol POC 58 mg/dL Chol/HDL Ratio, POC - Non-HDL Cholesterol, POC - mg/dL Cholesterol Total, POC 100 mg/dL Capillary blood 07/26/2024 8 :43 AM ELECTRIC WIRER Sonia Jacobs NP POINT OF CARE TEST ORDERA BLES Final Result from Last 3 Months Insurance MEDICARE [facility] Address: [facility] [address] [place] [address] [facility] FEDERAL MEDICARE [facility] Address: [address] [address] [place] [address] [facility] MEDICARE [facility] Member Subscriber Plan / Payer (Ef fective 2018-) Name:Russ Jimenez Relation to Subscriber:Self Name:Russ Jimenez Payer ID:[id number] (NAIC) Group ID:[id number] Type:[employer] Address: [facility] [id number] [place] [id number] Advance Directives For more information, please contact: [phone] * Full Code (Latest Code Status on File) Date Activated Date Inactivated Comments 03/18/2019 2:27 PM 03/19/2019 6:43 PM Care Teams Analyst Relationship Specialty Start Date End Date Dickson Land MD [address] [place] [address] PCP - General Family Medicine 01/27/19 Dionicio Carrasquillo MD [address] [facility] [address] [address] Surgeon Surgery 03/05/23
--- OUTSIDE RECORDS SUMMARY | 2024-09-29 10:48 | XMS_ITS | Referral Summary ---
Author Organization [facility] Health Address [address] [place] [address] Care Team Providers Care Set Illustrator Name Role Phone Dickson Land MD Primary Care Provider [phone] Source Comments [facility] [place] Affiliates and Associated Physician Practices is amultiple site organization consisting of ambulatory clinics and hospital sitesin [place], [place], [place] and [place]. This disclosure is being madepursuant to the Care Everywhere program and may not contain all information available regarding this patient. Last updated 18.[facility] Health Encounters Date Type Department Care Team Description 07/27/2024 Travel from Last 3 Months Social History Tobacco Use Types Packs/Day Years Used Date Smoking Tobacco: Never Assessed Sex and Gender Information Value Date Recorded Sex Assigned at Not on file Gender Identity Not on file Sexual Orientation Not on file Plan of Treatment Not on file Care Teams Set Illustrator Relationship Specialty Start Date End Date Dickson Land MD [address] [place] [address] PCP - General Family Medicine 03/30/24
--- OUTSIDE RECORDS SUMMARY | 2024-09-29 10:48 | XMS_ITS | Clinical Summary ---
Author Organization [facility] Address [address] [place] [address] Care Team Providers Care Chair Car Driver Name Role Phone Dickson Land MD Primary Care Provider [phone] Source Comments [facility],non-owned Affiliates and Associated Physician Practices is amultiple site organization consisting of ambulatory clinics and hospital sitesin [place], [place], [place] and [place]. This disclosure is being madepursuant to the Care Everywhere program and may not contain all information available regarding this patient. Last updated 18.[facility] Encounters Date Type Department Care Team Description 07/27/2024 Travel from Last 3 Months Social History Tobacco Use Types Packs/Day Years Used Date Smoking Tobacco: Never Assessed Sex and Gender Information Value Date Recorded Sex Assigned at Not on file Gender Identity Not on file Sexual Orientation Not on file Plan of Treatment Health Maintenance Due Date Last Done Comments MEDICARE AWV 12 MONTHS 1941 DTAP/TDAP/TD VACCINES (1 - Tdap) 1960 PNEUMOCOCCAL VACCINE 50+ (1 of 2 - PCV) 1960 HEPATITIS B VACCINE (1 of 3 - Risk Dialysis 4-dose series) 1961 ZOSTER VACCINE (1 of 2) 1991 Respiratory Syncytial Virus (RSV) Vaccine Pt: or over 60 yrs (1 - 1-dose 75+ series) 2016 COVID-19 VACCINE ( - 2023-2 5 season) 2024 INFLUENZA VACCINE (#1) 2024 9, 05/25/2018, 08/07/2016 DEPRESSION SCREENING 08/24/2024 HIB VACCINE Aged Out No longer eligi ble based on patient's age to complete this topic HPV VACCINE Aged Out No longer eligi ble based on patient's age to complete this topic MENINGOCOCCAL (Group B) VACCINE Aged Out No longer eligible b ased on patient's age to complete this topic MENINGOCOCCAL VACCINE Aged Out No [place] ste[place] eligible based on patient's age to complete this topic Care Teams Chair Car Driver Relationship Specialty Start Date End Date Dickson Land MD [address] [place] [address] PCP - General Family Medicine 03/30/24
--- OUTSIDE RECORDS SUMMARY | 2024-09-29 10:48 | XMS_ITS | Clinical Summary ---
Author Organization [facility] Address [address] [place] [address] Care Team Providers Care Elevator Dispatcher Name Role Phone Dickson Land MD Primary Care Provider [phone] Allergies No known active allergies Medications colchicine (COLCRYS) 0.6 mg tablet Take 0.6 mg by mouth 1 time daily as needed. Active olopatadine (PATADAY) 0.2 % solution 1 Drop by Ophthalmic route 1 time daily as needed. 2 Active axitinib 5 mg tablet Take 1 Tablet (5 mg) by mouth 2 times daily. 60 Tablet 5 2 Active amiodarone (CORDARONE) 200 mg tablet Take 1 Tablet (200 mg) by mouth 2 times daily. 4 Active Eliquis 5 mg tablet Take 0.5 Tablets (2.5 mg) by mouth 2 times daily. 4 Active gabapentin (NEURONTIN) 300 mg capsule Take 1 Capsule (300 mg) by mouth daily at bedtime. 4 Active midodrine (PROAMATINE) 10 mg Tablet Take 1 Tablet (10 mg) by mouth 3 times daily. 4 Active sennosides-docu sate sodium (SENNA-S) 8.6-50 mg tablet Take 1 Tablet by mouth 2 times daily. 4 Active polyethylene glycol (MIRALAX) 17 gram Powder in Packet Take 1 Packet (17 Grams) by mouth 1 time daily as needed for Constipation. 4 Active Fluticasone Furoate (FLONASE SENSIMIST) 27.5 mcg/actuation [place], Suspension Administer 1 spray into each nostril as needed 2 Active lactulose (ENULOSE) 10 gram/15 mL oral solution TAKE 30ML(2 TABLESPOONSFUL) BY MOUTH TWICE DAILY FOR CONSTIPATION 4 Active mupirocin (BACTROBAN) 2 % Ointment APPLY OINTMENT TOPICALLY TO AFFECTED AREA TWICE DAILY 4 Active sevelamer carbonate (RENVELA) 800 mg Tablet Take 2 tablets (1,600 mg total) by mouth 3 (three) times a day with meals 3 Active allopurinoL (ZYLOPRIM) 300 mg tablet Take 150 mg by mouth daily. 2 Active atorvastatin (LIPITOR) 20 mg tablet Take 20 mg by mouth daily. 4 Active Active Problems Problem Noted Date Diagnosed Date Nonrheumatic aortic valve stenosis 08/07/2024 Nonrheumatic mitral valve regurgitation 08/07/20 Atrial fibrillation 08/07/2024 Hypotension 08/07/2024 Biventricular heart failure 08/03/2024 History of end stage renal disease 08/02/2024 History of cirrhosis of liver 08/02/2024 Other ascites 08/02/2024 Nonrheumatic tricuspid valve regurgitation 08/02 Renal cell carcinoma of left kidney 04/17/2022 Resolved Problems Problem Noted Date Diagnosed Date Resolved Date Shock circulatory 08/02/2024 08/10/2024 Acute metabolic encephalopathy 08/02/2024 08/10/2024 Acute respiratory failure with hypoxia 08/02/2024 08/10/2024 Elevated troponin 08/02/2024 08/10/2024 Acute diarrhea 08/02/2024 08/10/2024 Encounters Date Type Department Care Team Description 09/15/2024 External Device Data ST[facility] ABSTRACTION Provider, Abstract 09/06/2024 External Device Data ST[facility] ABSTRACTION Provider, Abstract 08/25/2024 9:00 AM SEISMIC ENGINEER Office Visit [facility] HEART FAILURE PROGRAM [address] [place] [address] Zane Spann FNP HFrEF (heart failure with reduced ejection fraction) ([facility]) (Primary Dx); Severe mitral regurgitation; Severe aortic stenosis; Chronic atrial fibrillation ([facility]); ESRD (end stage renal disease) on dialysis ([facility]) 08/15/2024 Telephone [facility] - [address] [place] [address] Abelardo Steward MD hosp f/u 08/12/2024 Telephone [facility] [address] [facility] [address] [facility] [address] [place] [phone] Zane Spann, [place] HF Hospital F/U 08/09/2024 External Device Data STL ABSTRACTION Provider, Abstract 08/02/2024 6:04 AM SEISMIC ENGINEER - 08/10/2024 1:45 PM SEISMIC ENGINEER Hospital Encounter [facility] Cardiovascular Progressive Care unit [address] [place] [address] Dominguez Matthew MD Wyman, Anne Elizabeth, MD Tchomobe Kengne, Ghislain Bernis, MD Meyer, Chase L, DO Shock circulatory ([facility]) Discharge Disposition: Rehab Facility IP 08/02/2024 Travel 08/02/2024 [facility] Admitting [address] [place] [address] Dominguez Matthew MD A-FIB (mAPPn secure chat to Dr. Steward's group); Dialysis management (Spoke w/Van at Dr. Larsen' exchange) from Last 3 Months Family History Medical History Relation Name Comments Diabetes Father Heart Disease Mother Relation Name Status Comments Brother Alive Father Mother Social History Tobacco Use Types Packs/Day [...] Sign Reading Time Taken Comments Blood Pressure 80/44 08/25/2024 9:00 AM SEISMIC ENGINEER Pulse 63 08/25/2024 8:43 AM SEISMIC ENGINEER Temperature 36.7 C (98 F) 08/10/2024 7:33 AM SEISMIC ENGINEER Respiratory Rate 19 08/10/2024 12:59 PM SEISMIC ENGINEER Oxygen Saturation 96% 08/25/2024 8:43 AM SEISMIC ENGINEER Inhaled Oxygen Concentration - - Weight 99.8 kg (220 lb) 08/25/2024 8:43 AM SEISMIC ENGINEER Height 188 cm (6' 2 ) 08/25/2024 8:43 AM SEISMIC ENGINEER Body Mass Index 28.25 08/25/2024 8:43 AM SEISMIC ENGINEER Plan of Treatment Upcoming Encounters Date Type Department Care Team (Late st Contact Info) Description 10/12/2024 3:30 PM SEISMIC ENGINEER Office Visit [facility] - [address] [facility] [address] [address] [facility] [address] [place] [address] Health Maintenance Due Date Last Done Comments Traditional Medicare (ACO) A nnual Wellness Visit 1959 RSV VACCINE (60+ or ) (1 - 1-dose 75+ series) 2016 INFLUENZA VACCINE (#1) 2024 05/25/2021, 2019 DTAP/TDAP/TD VACCINES (2 - Td or Tdap) 12/02/2028 ZOSTER VACCINE Completed 08/23/2018, 05/25/2018 PNEUMOCOCCAL VACCINE 65+ YEARS Completed 12/02/2018 , 02/27/2016 Procedures Procedure Name Priority Date/Time Associated Diagnosis Comments TELEMETRY REPORT 08/12/2024 1:23 PM SEISMIC ENGINEER TELEMETRY REPORT 08/12/2024 12:0 3 PM SEISMIC ENGINEER TELEMETRY REPORT 08/12/2024 12:0 3 PM SEISMIC ENGINEER TELEMETRY REPORT 08/12/2024 11:1 5 AM SEISMIC ENGINEER TELEMETRY REPORT 08/11/2024 2:30 PM SEISMIC ENGINEER TELEMETRY REPORT 08/11/2024 1:56 PM SEISMIC ENGINEER TELEMETRY REPORT 08/11/2024 1:56 PM SEISMIC ENGINEER TELEMETRY REPORT 08/11/2024 1:49 PM SEISMIC ENGINEER TELEMETRY REPORT 08/11/2024 1:43 PM SEISMIC ENGINEER TELEMETRY REPORT 08/11/2024 1:26 PM SEISMIC ENGINEER TELEMETRY REPORT 08/11/2024 1:25 PM SEISMIC ENGINEER TELEMETRY REPORT 08/11/2024 1:24 PM SEISMIC ENGINEER POC GLUCOSE Routine 08/10/2024 7:37 AM SEISMIC ENGINEER POC GLUCOSE Routine 08/10/2024 2:01 AM SEISMIC ENGINEER COMPREHENSIVE METABOLIC PANEL Routine 08/10/2024 1:46 AM SEISMIC ENGINEER PHOSPHORUS Routine 08/10/2024 1:46 AM SEISMIC ENGINEER MAGNESIUM LEVEL Routine 08/10/2024 1:46 AM SEISMIC ENGINEER CBC WITH DIFFERENTIAL Routine 08/10/2024 1:46 AM SEISMIC ENGINEER POC GLUCOSE Routine 08/09/2024 9:07 PM SEISMIC ENGINEER POC GLUCOSE Routine 08/09/2024 3:55 PM SEISMIC ENGINEER POC GLUCOSE Routine 08/09/2024 11:21 AM SEISMIC ENGINEER POC GLUCOSE Routine 08/09/2024 7:38 AM SEISMIC ENGINEER COMPREHENSIVE METABOLIC PANEL Routine 08/09/2024 2:54 AM SEISMIC ENGINEER PHOSPHORUS Routine 08/09/2024 2:54 AM SEISMIC ENGINEER MAGNESIUM LEVEL Routine 08/09/2024 2:54 AM SEISMIC ENGINEER CBC WITH DIFFERENTIAL Routine 08/09/2024 2:54 AM SEISMIC ENGINEER POC GLUCOSE Routine 08/09/2024 2:26 AM SEISMIC ENGINEER POC GLUCOSE Routine 08/08/2024 9:15 PM SEISMIC ENGINEER POC GLUCOSE Routine 08/08/2024 4:02 PM SEISMIC ENGINEER POC GLUCOSE Routine 08/08/2024 1:37 PM SEISMIC ENGINEER POC GLUCOSE Routine 08/08/2024 7:43 AM SEISMIC ENGINEER POC GLUCOSE Routine 08/08/2024 3:07 AM SEISMIC ENGINEER COMPREHENSIVE METABOLIC PANEL Routine 08/08/2024 2:11 AM SEISMIC ENGINEER PHOSPHORUS Routine 08/08/2024 2:11 AM SEISMIC ENGINEER MAGNESIUM LEVEL Routine 08/08/2024 2:11 AM SEISMIC ENGINEER CBC WITH DIFFERENTIAL Routine 08/08/2024 2:11 AM SEISMIC ENGINEER POC GLUCOSE Routine 08/07/2024 9:05 PM SEISMIC ENGINEER POC GLUCOSE Routine 08/07/2024 5:28 PM SEISMIC ENGINEER POC GLUCOSE Routine 08/07/2024 11:28 AM SEISMIC ENGINEER XR CHEST PA OR AP 1 VW Routine 08/07/2024 10:39 AM SEISMIC ENGINEER POC GLUCOSE Routine 08/07/2024 8:02 AM SEISMIC ENGINEER POC GLUCOSE Routine 08/07/2024 2:43 AM SEISMIC ENGINEER COMPREHENSIVE METABOLIC PANEL Routine 08/07/2024 1:13 AM SEISMIC ENGINEER PHOSPHORUS Routine 08/07/2024 1:13 AM SEISMIC ENGINEER MAGNESIUM LEVEL Routine 08/07/2024 1:13 AM SEISMIC ENGINEER CBC WITH DIFFERENTIAL Routine 08/07/2024 1:13 AM SEISMIC ENGINEER POC GLUCOSE Routine 08/06/2024 9:19 PM SEISMIC ENGINEER POC GLUCOSE Routine 08/06/2024 5:44 PM SEISMIC ENGINEER POC GLUCOSE Routine 08/06/2024 1:20 PM SEISMIC ENGINEER COMPREHENSIVE METABOLIC PANEL Routine 08/06/2024 6:31 AM SEISMIC ENGINEER PHOSPHORUS Routine 08/06/2024 6:31 AM SEISMIC ENGINEER MAGNESIUM LEVEL Routine 08/06/2024 6:31 AM SEISMIC ENGINEER CBC WITH DIFFERENTIAL Routine 08/06/2024 6:31 AM SEISMIC ENGINEER POC GLUCOSE Routine 08/06/2024 1:35 AM SEISMIC ENGINEER EKG 12-LEAD Stat 08/05/2024 11:02 PM SEISMIC ENGINEER EKG 12-LEAD Stat 08/05/2024 10:23 PM SEISMIC ENGINEER POC GLUCOSE Routine 08/05/2024 9:11 PM SEISMIC ENGINEER POC GLUCOSE Routine 08/05/2024 6:55 PM SEISMIC ENGINEER POC GLUCOSE Routine 08/05/2024 12:10 PM SEISMIC ENGINEER POC GLUCOSE Routine 08/05/2024 10:06 AM SEISMIC ENGINEER POC GLUCOSE Routine 08/05/2024 7:11 AM SEISMIC ENGINEER PTT Routine 08/05/2024 5:27 AM SEISMIC ENGINEER COMPREHENSIVE METABOLIC PANEL Routine 08/05/2024 5:27 AM SEISMIC ENGINEER PHOSPHORUS Routine 08/05/2024 5:27 AM SEISMIC ENGINEER MAGNESIUM LEVEL Routine 08/05/2024 5:27 AM SEISMIC ENGINEER CBC WITH DIFFERENTIAL Routine 08/05/2024 5:27 AM SEISMIC ENGINEER POC GLUCOSE Routine 08/05/2024 4:28 AM SEISMIC ENGINEER POC GLUCOSE Routine 08/04/2024 11:32 PM SEISMIC ENGINEER POC GLUCOSE Routine 08/04/2024 8:42 PM SEISMIC ENGINEER PTT Timed Study 08/04/2024 8:37 PM SEISMIC ENGINEER POC GLUCOSE Routine 08/04/2024 3:03 PM SEISMIC ENGINEER POC GLUCOSE Routine 08/04/2024 11:30 AM SEISMIC ENGINEER US ABDOMEN LIMITED Routine 08/04/2024 8: 45 AM SEISMIC ENGINEER POC GLUCOSE Routine 08/04/2024 7:32 AM SEISMIC ENGINEER PTT Routine 08/04/2024 5:43 AM SEISMIC ENGINEER COMPREHENSIVE METABOLIC PANEL Routine 08/04/2024 5:43 AM SEISMIC ENGINEER PHOSPHORUS Routine 08/04/2024 5:43 AM SEISMIC ENGINEER MAGNESIUM LEVEL Routine 08/04/2024 5:43 AM SEISMIC ENGINEER CBC WITH DIFFERENTIAL Routine 08/04/2024 5:43 AM SEISMIC ENGINEER XR CHEST PA OR AP 1 VW Routine 08/04/2024 5:36 AM SEISMIC ENGINEER POC GLUCOSE Routine 08/03/2024 8:44 PM SEISMIC ENGINEER PTT Routine 08/03/2024 8:44 PM SEISMIC ENGINEER POC GLUCOSE Routine 08/03/2024 3:41 PM SEISMIC ENGINEER PTT Timed Study 08/03/2024 1:45 PM SEISMIC ENGINEER LACTIC ACID Routine 08/03/2024 1:45 PM SEISMIC ENGINEER POC GLUCOSE Routine 08/03/2024 11:07 AM SEISMIC ENGINEER BLOOD GAS VENOUS Stat 08/03/2024 8:51 AM SEISMIC ENGINEER CALCIUM IONIZED Routine 08/03/2024 8:45 AM SEISMIC ENGINEER LACTIC ACID Stat 08/03/2024 8:45 AM SEISMIC ENGINEER POC GLUCOSE Routine 08/03/2024 8:16 AM SEISMIC ENGINEER HEPATIC FUNCTION PANEL Routine 08/03/2024 7:47 AM SEISMIC ENGINEER PHOSPHORUS Routine 08/03/2024 7:47 AM SEISMIC ENGINEER MAGNESIUM LEVEL Routine 08/03/2024 7:47 AM SEISMIC ENGINEER BASIC METABOLIC PANEL Routine 08/03/2024 7:47 AM SEISMIC ENGINEER DIFFERENTIAL, MANUAL Routine 08/03/2024 6:14 AM SEISMIC ENGINEER PTT Routine 08/03/2024 6:14 AM SEISMIC ENGINEER ACUTE HEPATITIS PANEL Routine 08/03/2024 6:14 AM SEISMIC ENGINEER CBC WITH DIFFERENTIAL Routine 08/03/2024 6:14 AM SEISMIC ENGINEER PTT Timed Study 08/02/2024 10:30 PM SEISMIC ENGINEER POC GLUCOSE Routine 08/02/2024 3:15 PM SEISMIC ENGINEER PTT Timed Study 08/02/2024 3:01 PM SEISMIC ENGINEER HEPATITIS B SURFACE ANTIGEN Routine 08/02/2024 1:07 PM SEISMIC ENGINEER LACTIC ACID Routine 08/02/2024 1:07 PM SEISMIC ENGINEER TROPONIN 6 HR, 5TH GEN Timed Study 08/02/2024 1:07 PM SEISMIC ENGINEER POC GLUCOSE Routine 08/02/2024 11:32 AM SEISMIC ENGINEER EKG 12-LEAD Stat 08/02/2024 11:30 AM SEISMIC ENGINEER ECHO COMPLETE Routine 08/02/2024 11:08 AM SEISMIC ENGINEER TROPONIN 2 HR, 5TH GEN Timed Study 08/02/2024 8:55 AM SEISMIC ENGINEER VERIFICATION BLOOD GROUP Stat 08/02/2024 7:36 AM SEISMIC ENGINEER Encounter for blood typing LACTIC ACID Stat 08/02/2024 7:36 AM SEISMIC ENGINEER POC GLUCOSE Routine 08/02/2024 7:32 AM SEISMIC ENGINEER EKG 12-LEAD Routine 08/02/2024 7:16 AM SEISMIC ENGINEER TYPE AND SCREEN Routine 08/02/2024 6:16 AM SEISMIC ENGINEER EXTRA TUBE (BLUE) Routine 08/02/2024 6:1 6 AM SEISMIC ENGINEER EXTRA TUBE Routine 08/02/2024 6:16 AM SEISMIC ENGINEER PROCALCITONIN Routine 08/02/2024 6:16 AM SEISMIC ENGINEER C-REACTIVE PROTEIN Routine 08/02/2024 6: 16 AM SEISMIC ENGINEER TROPONIN BASELINE, 5TH GEN Stat 08/02/2024 6:16 AM SEISMIC ENGINEER TROPONIN Stat 08/02/2024 6:16 AM SEISMIC ENGINEER LACTIC ACID Stat 08/02/2024 6:16 AM SEISMIC ENGINEER PHOSPHORUS Stat 08/02/2024 6:16 AM SEISMIC ENGINEER MAGNESIUM LEVEL Stat 08/02/2024 6:16 AM SEISMIC ENGINEER PROTIME-INR Stat 08/02/2024 6:16 AM SEISMIC ENGINEER COMPREHENSIVE METABOLIC PANEL Stat 08/02/2024 6:16 AM SEISMIC ENGINEER CBC WITH DIFFERENTIAL Stat 08/02/2024 6:16 AM SEISMIC ENGINEER PTT Routine 08/02/2024 6:16 AM SEISMIC ENGINEER X-RAY PRIOR STUDY Routine 08/02/2024 3:1 5 AM SEISMIC ENGINEER from Last 3 Months Results * TELEMETRY REPORT (08/12/2024 1:23 PM SEISMIC ENGINEER) Only the most recent of12 resultswithin the time period is included. Provider Scanning ECG ORDERABLES Final Result * (ABNORMAL) POC GLUCOSE (08/10/2024 7:37 AM SEISMIC ENGINEER) Only the most recent of39 resultswithin the time period is included. Pathologist [facility] GLUCOSE POC 106(H) 74 - 99 mg/dL 08/10/2024 7:37 AM SEISMIC ENGINEER [facility] POINT OF CARE SPECIMEN SOURCE, GLUCOSE POC Whole Blood 08/10/2024 7:37 AM SEISMIC ENGINEER [facility] POINT OF CARE Blood, whole 08/10/2024 7:37 AM SEISMIC ENGINEER 08/10/2024 7:44 AM SEISMIC ENGINEER Paulo Gomez DO POINT OF CARE TESTING Final Res ult [facility] POINT OF CARE CLIA # [id number] [place] [address] * (ABNORMAL) CBC WITH DIFFERENTIAL (08/10/2024 1:46 AM SEISMIC ENGINEER) Only the most recent of9 resultswithin the time period is included. Pathologist [facility] WBC 9.4 4.0 - 9.8 K/uL 08/10/2024 4:05 AM [facility] RBC 2.80(L) 4.50 - 5.40 M/uL 08/10/2024 4:05 AM [facility] HEMOGLOBIN 10.7(L) 13.6 - 16.5 g/dL 08/10/2024 4:05 AM [facility] HEMATOCRIT 29.2(L) 40.0 - 48.0 % 08/10/2024 4:05 AM [facility] MCV 104.3(H) 82.0 - 99.0 fL 08/10/2024 4:05 AM [facility] MCH 38.2(H) 27.2 - 32.6 pg 08/10/2024 4:05 AM [facility] MCHC 36.6(H) 31.5 - 35.5 g/dL 08/10/2024 4:05 AM [facility] RDW 14.3 11.5 - 14.5 % 08/10/2024 4:05 AM [facility] RDW-STDEV 52.3(H) 37.1 - 48.7 fL 08/10/2024 4:05 AM [facility] PLATELETS 291 140 - 350 K/uL 08/10/2024 4:05 AM [facility] MPV 9.8 9.3 - 12.4 fL 08/10/2024 4:05 AM [facility] NEUTROPHILS 77 % 08/10/2024 4:05 AM [facility] LYMPHOCYTES 8 % 08/10/2024 4:05 AM [facility] MONOCYTES 12 % 08/10/2024 4:05 AM [facility] EOSINOPHILS 2 % 08/10/2024 4:05 AM [facility] BASOPHILS 1 % 08/10/2024 4:05 AM [facility] IMMATURE GRANULOCYTES 1 % 08/10/2024 4:05 AM [facility] Comment:IG (Immature Granulo cyte) count includes Metamyelocytes, Myelocytes, and Promyelocytes NEUTROPHIL ABSOLUTE 7.23(H) 1.90 - 7.00 K/uL 08/10/2024 4:05 AM [facility] LYMPHOCYTE ABSOLUTE 0.73 0.70 - 4.50 K/uL 08/10/2024 4:05 AM [facility] MONOCYTE ABSOLUTE 1.13 0.10 - 1.30 K/uL 08/10/2024 4:05 AM [facility] EOSINOPHIL ABSOLUTE 0.17 0.00 - 0.70 K/uL 08/10/2024 4:05 AM [facility] BASOPHILS ABSOLUTE 0.06 0.00 - 0.20 K/uL 08/10/2024 4:05 AM [facility] IMMATURE GRANULOCYTES ABSOLUTE 0.08(H) 0.00 - 0.03 K/uL 08/10/2024 4:05 AM [facility] Blood Venipuncture / Unknown 08/10/2024 1:46 AM SEISMIC ENGINEER 08/10/2024 3:37 AM SEISMIC ENGINEER Haile Du FOUNDRY HELPER HEMATOLOGY ORDERABLES Final R esult Performing Organization Address City/[facility]/ZIP Co de Phone Number [facility] CLIA# [id number] [place] [address] * (ABNORMAL) PHOSPHORUS (08/10/2024 1:46 AM SEISMIC ENGINEER) Only the most recent of9 resultswithin the time period is included. PHOSPHORUS 6.2(H) 2.5 - 4.5 mg/dL 08/10/2024 4:12 AM [facility] Blood Venipuncture / Unknown 08/10/2024 1:46 AM SEISMIC ENGINEER 08/10/2024 3:35 AM SEISMIC ENGINEER Haileadolfo Du FOUNDRY HELPER CHEMISTRY ORDERABLES Final Re sult [facility] [id number] [id number] [place] [address] * MAGNESIUM LEVEL (08/10/2024 1:46 AM SEISMIC ENGINEER) Only the most recent of9 resultswithin the time period is included. MAGNESIUM 2.6 1.6 - 2.6 mg/dL 08/10/2024 4:12 AM [facility] Blood Venipuncture / Unknown 08/10/2024 1:46 AM SEISMIC ENGINEER 08/10/2024 3:35 AM SEISMIC ENGINEER us Haile Du NP CHEMISTRY ORDERABLES Final Re sult [facility] [id number] [place] [address] * (ABNORMAL) COMPREHENSIVE METABOLIC PANEL (08/10/2024 1:46 AM SEISMIC ENGINEER) Only the most recent of8 resultswithin the time period is included. SODIUM 135(L) 136 - 145 mmol/L 08/10/2024 4:12 AM [facility] [employer] [facility] POTASSIUM 4.8 3.4 - 5.1 mmol/L 08/10/2024 4:12 AM [facility] [employer] [facility] CHLORIDE 94(L) 98 - 107 mmol/L 08/10/2024 4:12 AM [facility] [employer] [facility] CO2 21(L) 22 - 29 mmol/L 08/10/2024 4:12 AM [facility] [employer] [facility] CALCIUM 10.2 8.6 - 10.4 mg/dL 08/10/2024 4:12 AM [facility] BUN 72(H) 6 - 20 mg/dL 08/10/2024 4:12 AM [facility] CREATININE 8.46(H) 0.67 - 1.17 mg/dL 08/10/2024 4:12 AM [facility] [employer] [facility] Comment:The GFR result is no t clinically significant on patients <18 or >70 years of age. GLUCOSE 87 74 - 99 mg/dL 08/10/2024 4:12 AM [facility] TOTAL PROTEIN 6.2(L) 6.3 - 8.7 g/dL 08/10/2024 4:12 AM [facility] ALBUMIN 3.5 3.5 - 5.2 g/dL 08/10/2024 4:12 AM [facility] BILIRUBIN TOTAL 0.9 0.2 - 1.1 mg/dL 08/10/2024 4:12 AM [facility] ALKALINE PHOSPHATASE 247(H) 40 - 150 U/L 08/10/2024 4:12 AM [facility] AST 19 0 - 41 U/L 08/10/2024 4:12 AM [facility] ALT 20 0 - 41 U/L 08/10/2024 4:12 AM [facility] GFR 6 mL/min/1.7 3 sq meter 08/10/2024 4:12 AM [facility] Comment:eGFR calculated with 2020 CKD-EPI equation. Vegetarian diet, extremely high or low muscle mass, and may affect results. Cystatin C with Glomerular Filtration Rate is a suitable alternative for these patients. ANION GAP 20(H) 8 - 16 mmol/L 08/10/2024 4:12 AM [facility] Blood Venipuncture / Unknown 08/10/2024 1:46 AM SEISMIC ENGINEER 08/10/2024 3:35 AM SEISMIC ENGINEER us Lucy Langford MD CHEMISTRY ORDERABLES Fin al Result [facility] CLIA# [id number] [address] * XR CHEST PA OR AP 1 VW (08/07/2024 10:39 AM SEISMIC ENGINEER) Only the most recent of2 resultswithin the time period is included. Anatomical Region Laterality Modality Chest Computed Radiogr aphy 08/07/2024 10:4 1 AM SEISMIC ENGINEER Impressions 08/07/2024 10:51 AM SEISMIC ENGINEER IMPRESSION: 1. Mild pulmonary vascular congestion with left pleural effusion and left basilar atelectasis. DICTATION LOCATION: [address] Narrative 08/07/2024 10:51 AM SEISMIC ENGINEER CHEST, ONE VIEW DATE: 08/07/2024 10:39 AM HISTORY: CHF. FINDINGS: Comparison is made to exam dated 08/04/2024. The heart is enlarged. Pulmonary vascular congestion is present. Left pleural effusion and left basilar atelectasis is present. Procedure Note Braydon Mensah MD - 08/07/2024 CHEST, ONE VIEW DATE: 08/07/2024 10:39 AM HISTORY: CHF. FINDINGS: Comparison is made to exam dated 08/04/2024. The heart is enlarged. Pulmonary vascular congestion is present. Left pleural effusion and left basilar atelectasis is present. IMPRESSION: 1. Mild pulmonary vascular congestion with left pleural effusion and left basilar atelectasis. DICTATION LOCATION: Location [address] [place] [address] Paulo Gomez DO DIAGNOSTIC IMAGING ORDERABLES F inal Result * EKG 12-LEAD (08/05/2024 11:02 PM SEISMIC ENGINEER) Only the most recent of4 resultswithin the time period is included. 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: jm : 1940 Requested By: DOMINGUEZ BLAND Order Number: [id number] Reading MD: Kalia Mirza Measurements Intervals Isabella Rate: 90 P: 0 VA: 0 QRS: -17 QRSD: 120 T: 177 QT: 392 QTc: 479 Interpretive Statements Atrial fibrillation with premature ventricular or aberrantly conducted complexes Right bundle branch block ST & T wave abnormality, consider lateral ischemia Abnormal ECG Compared to ECG 08/05/2024 22:23:33 Atrial fibrillation now present Right bundle-branch block now present Electronically Signed On 08-06-2024 8:04:51 SEISMIC ENGINEER by Kalia Mirza Procedure Note Kalia Mirza MD - 08/06/2024 [place] [address] Test Date: 2024-08-05 Pat Name: ARMEN JIMENEZ Department: 97 Room: 3746 01 Gender: Male Button [employer]: jm : 1940 Requested By: DOMINGUEZ BELLO Order Number: [id number] Reading MD: Kalia Mirza Measurements Intervals Isabella Rate: 90 P: 0 VA: 0 QRS: -17 QRSD: 120 T: 177 QT: 392 QTc: 479 Interpretive Statements Atrial fibrillation with premature ventricular or aberrantly conducted complexes Right bundle branch block ST & T wave abnormality, consider lateral ischemia Abnormal ECG Compared to ECG 08/05/2024 22:23:33 Atrial fibrillation now present Right bundle-branch block now present Electronically Signed On 08-06-2024 8:04:51 SEISMIC ENGINEER by Kalia Mirza us Malka Dozier APRN-DOMI ECG ORDERABLES Final Result INTERFACE SYSTEM Refer to clinic/hospital department * PTT (08/05/2024 5:27 AM SEISMIC ENGINEER) Only the most recent of9 resultswithin the time period is included. PTT 34.8 23.1 - 37.1 seconds 08/05/2024 7:57 AM SEISMIC ENGINEER [facility] [employer] [facility] Blood Venipuncture / Unknown 08/05/2024 5:27 AM SEISMIC ENGINEER 08/05/2024 6:26 AM SEISMIC ENGINEER us Dominguez Matthew MD HEMATOLOGY ORDERABLE S Final Result Performing Organization Address City/[facility]/ZIP Co de Phone Number [facility] [place] CLIA# [id number] [address] [place] [address] * US ABDOMEN LIMITED (08/04/2024 8:45 AM SEISMIC ENGINEER) Anatomical Region Laterality Modality Abdomen Ultrasound 08/04/2024 8:48 AM SEISMIC ENGINEER Impressions 08/04/2024 10:39 AM SEISMIC ENGINEER IMPRESSION: 1. Cirrhotic liver morphology with sequela of portal hypertension including ascites and recanalization of the umbilical vein. No solid hepatic lesion is identified. 2. Gallbladder sludge. Gallbladder wall thickening is likely reactive to liver disease. DICTATION LOCATION: Location [address] [place] [address] 08/04/2024 10:39 AM SEISMIC ENGINEER EXAMINATION: US ABDOMEN LIMITED DATE: 08/04/2024 8:45 AM HISTORY: Elevated LFT's; Encounter for blood typing COMPARISON: No prior study is available for comparison at the time of this dictation. FINDINGS: The pancreas is obscured by overlying bowel gas. The liver has a coarse echotexture and nodular surface, consistent with cirrhosis. No solid hepatic mass or intrahepatic biliary ductal dilatation is seen. The visible portal vein is patent with bidirectional flow. A recanalized umbilical vein is present. The common bile duct is nondilated, measuring 5 mm. There is sludge in the gallbladder. No gallstones or pericholecystic fluid is seen. The gallbladder wall is increased in thickness, measuring 5 mm, likely reactive to liver disease. Sonographic Villanueva's sign is negative. There is no evidence of right nephrolithiasis or hydronephrosis. Moderate to large volume ascites is present. Procedure Note Kalia Henriquez MD - 08/04/2024 EXAMINATION: US ABDOMEN LIMITED DATE: 08/04/2024 8:45 AM HISTORY: Elevated LFT's; Encounter for blood typing COMPARISON: No prior study is available for comparison at the time of this dictation. FINDINGS: The pancreas is obscured by overlying bowel gas. The liver has a coarse echotexture and nodular surface, consistent with cirrhosis. No solid hepatic mass or intrahepatic biliary ductal dilatation is seen. The visible portal vein is patent with bidirectional flow. A recanalized umbilical vein is present. The common bile duct is nondilated, measuring 5 mm. There is sludge in the gallbladder. No gallstones or pericholecystic fluid is seen. The gallbladder wall is increased in thickness, measuring 5 mm, likely reactive to liver disease. Sonographic Villanueva's sign is negative. There is no evidence of right nephrolithiasis or hydronephrosis. Moderate to large volume ascites is present. IMPRESSION: 1. Cirrhotic liver morphology with sequela of portal hypertension including ascites and recanalization of the umbilical vein. No solid hepatic lesion is identified. 2. Gallbladder sludge. Gallbladder wall thickening is likely reactive to liver disease. DICTATION LOCATION: Location 7 - [facility] Lucy Langford MD US ORDERABLES Final Re sult * (ABNORMAL) LACTIC ACID (08/03/2024 1:45 PM SEISMIC ENGINEER) Only the most recent of5 resultswithin the time period is included. Pathologist [facility] LACTIC ACID 2.2(H) <=2.0 mmol/L 08/03/2024 2:31 PM SEISMIC ENGINEER [facility] [employer] [facility] Blood Venipuncture / Unknown 08/03/2024 1:45 PM SEISMIC ENGINEER 08/03/2024 1:56 PM SEISMIC ENGINEER Lucy Langford MD CHEMISTRY ORDERABLES Fin al Result [facility]# [id number] [place] [address] * (ABNORMAL) BLOOD GAS VENOUS (08/03/2024 8:51 AM SEISMIC ENGINEER) Pathologist [facility] PH BLOOD POC 7.37 7.32 - 7.43 08/03/2024 8:51 AM SEISMIC ENGINEER [facility] [employer] [facility] PCO2 POC 57(H) 38 - 50 mm Hg 08/03/2024 8:51 AM SEISMIC ENGINEER [facility] [employer] [facility] PO2 POC 32 28 - 40 mm Hg 08/03/2024 8:51 AM SEISMIC ENGINEER [facility] HCO3 (CALC) POC 33(H) 22 - 29 mmol/L 08/03/2024 8:51 AM SEISMIC ENGINEER [facility] [employer] [facility] BASE EXCESS POC 6 No Reference Range Established mmol/L 08/03/2024 8:51 AM SEISMIC ENGINEER [facility] O2 SATURATION POC 53 40 - 70 % 08/03/2024 8:51 AM [facility] PH TEMP CORRECT 7.37 7.32 - 7.43 08/03/2024 8:51 AM [facility] PCO2 TEMP CORRECT 57(H) 38 - 50 mm Hg 08/03/2024 8:51 AM [facility] PO2 TEMP CORRECT 32 25 - 40 mm Hg 08/03/2024 8:51 AM SEISMIC ENGINEER [facility] SPECIMEN SOURCE, GASES POC Venous 08/03/2024 8:51 AM [facility] Blood, venous 08/03/2024 8:5 1 AM SEISMIC ENGINEER 08/03/2024 8:53 AM SEISMIC ENGINEER us Lucy Langford MD ABG ORDERABLES Final Re sult [facility]# [id number] [place] [address] * (ABNORMAL) CALCIUM IONIZED (08/03/2024 8:45 AM SEISMIC ENGINEER) PH, VENOUS 7.31 Ref Range Not Established 08/03/2024 9:30 AM SEISMIC ENGINEER [facility] CALCIUM IONIZED 4.6(L) 4.8 - 5.2 mg/dL 08/03/2024 9:30 AM [facility] Blood Venipuncture / Unknown 08/03/2024 8:45 AM SEISMIC ENGINEER 08/03/2024 9:20 AM SEISMIC ENGINEER us Lucy Langford MD CHEMISTRY ORDERABLES Fin al Result [facility]# [id number] [place] [address] * (ABNORMAL) HEPATIC FUNCTION PANEL (08/03/2024 7:47 AM SEISMIC ENGINEER) Pathologist [facility] TOTAL PROTEIN 6.7 6.3 - 8.7 g/dL 08/03/2024 8:42 AM SEISMIC ENGINEER [facility] ALBUMIN 3.5 3.5 - 5.2 g/dL 08/03/2024 8:42 AM SEISMIC ENGINEER [facility] BILIRUBIN TOTAL 1.3(H) 0.2 - 1.1 mg/dL 08/03/2024 8:42 AM SEISMIC ENGINEER [facility] BILIRUBIN DIRECT 0.6(H) 0.0 - 0.3 mg/dL 08/03/2024 8:42 AM [facility] Comment:Hemolysis present. R esult may be falsely elevated. ALKALINE PHOSPHATASE 148 40 - 150 U/L 08/03/2024 8:42 AM SEISMIC ENGINEER [facility] AST 70(H) 0 - 41 U/L 08/03/2024 8:42 AM [facility] Comment:Hemolysis present. R esult may be falsely elevated. ALT 21 0 - 41 U/L 08/03/2024 8:42 AM [facility] Blood Venipuncture / Unknown 08/03/2024 7:47 AM SEISMIC ENGINEER 08/03/2024 8:14 AM SEISMIC ENGINEER us Lucy Langford MD CHEMISTRY ORDERABLES Fin al Result [facility]# [id number] [place] [address] * (ABNORMAL) BASIC METABOLIC PANEL (08/03/2024 7:47 AM SEISMIC ENGINEER) [facility] SODIUM 138 136 - 145 mmol/L 08/03/2024 8:42 AM SEISMIC ENGINEER [facility] POTASSIUM 4.9 3.4 - 5.1 mmol/L 08/03/2024 8:42 AM [facility] Comment:Moderate hemolysis p resent. Can cause significant falsely elevated result. Redraw if indicated. CHLORIDE 94(L) 98 - 107 mmol/L 08/03/2024 8:42 AM [facility] CO2 25 22 - 29 mmol/L 08/03/2024 8:42 AM [facility] CALCIUM 9.6 8.6 - 10.4 mg/dL 08/03/2024 8:42 AM [facility] BUN 45(H) 6 - 20 mg/dL 08/03/2024 8:42 AM [facility] CREATININE 7.03(H) 0.67 - 1.17 mg/dL 08/03/2024 8:42 AM [facility] Comment:The GFR result is no t clinically significant on patients <18 or >70 years of age. GLUCOSE 170(H) 74 - 99 mg/dL 08/03/2024 8:42 AM [facility] GFR 7 mL/min/1.7 3 sq meter 08/03/2024 8:42 AM [facility] Comment:eGFR calculated with 2020 CKD-EPI equation. Vegetarian diet, extremely high or low muscle mass, and may affect results. Cystatin C with Glomerular Filtration Rate is a suitable alternative for these patients. ANION GAP 19(H) 8 - 16 mmol/L 08/03/2024 8:42 AM [facility] Blood Venipuncture / Unknown 08/03/2024 7:47 AM SEISMIC ENGINEER 08/03/2024 8:14 AM [facility] us Haile Du FOUNDRY HELPER CHEMISTRY ORDERABLES Final Re sult [facility] CLIA# [id number] [place] [address] * (ABNORMAL) MANUAL DIFFERENTIAL (08/03/2024 6:14 AM SEISMIC ENGINEER) SEGMENTED NEUTROPHILS 81 % 08/03/2024 9:22 AM [facility] LYMPHOCYTES RELATIVE 5(L) 43 - 53 % 08/03/2024 9:22 AM [facility] MONOCYTES RELATIVE 10 % 2023 9:22 AM [facility] BASOPHILS RELATIVE 1 % 2023 9:22 AM [facility] METAMYELOCYTES RELATIVE 3(H) <=0 % 08/03/2024 9:22 AM [facility] NEUTROPHILS ABSOLUTE COUNT 3.07 1.90 - 7.00 K/uL 08/03/2024 9:22 AM [facility] LYMPHOCYTES ABSOLUTE 0.21(L) 0.70 - 4.50 K/uL 08/03/2024 9:22 AM [facility] MONOCYTES ABSOLUTE 0.38 0.10 - 1.30 K/uL 08/03/2024 9:22 AM [facility] BASOPHILS ABSOLUTE 0.03 0.00 - 0.20 K/uL 08/03/2024 9:22 AM [facility] TOTAL CELLS COUNTED IN DIFF 110 08/03/2024 9:22 AM [facility] RBC MORPHOLOGY abnormal 08/03/2024 9:22 AM [facility] PLATELET EST. Adequate 08/03/2024 9:22 AM [facility] ANISOCYTOSIS 1+ /hpf 08/03/2024 9:22 AM [facility] POIKILOCYTES 1+ /hpf 08/03/2024 9:22 AM [facility] MACROCYTES 2+ /hpf 08/03/2024 9:22 AM [facility] HYPOCHROMIA 1+ /hpf 08/03/2024 9:22 AM [facility] Blood Venipuncture / Unknown 08/03/2024 6:14 AM SEISMIC ENGINEER 08/03/2024 6:53 AM SEISMIC ENGINEER us Haile Du NP HEMATOLOGY ORDERABLES COM Fin al Result [facility] CLIA# [id number] [place] [address] * ACUTE HEPATITIS PANEL (08/03/2024 6:14 AM SEISMIC ENGINEER) HEPATITIS B SURFACE AG NON-REACT NICK Non-react nick 08/03/2024 7:22 AM SEISMIC ENGINEER [facility] Comment:A non-reactive test result does not exclude the possibility of exposure to or infection with hepatitis B. HEPATITIS B CORE IGM NON-REACT NICK Non-react nick 08/03/2024 7:22 AM SEISMIC ENGINEER [facility] Comment:IgM antibodies to HB c were not detected; does not exclude the possibility of exposure to HBV. HEPATITIS A IGM Non-react nick Non-react nick 08/03/2024 7:22 AM SEISMIC ENGINEER [facility] Comment:A negative test resu lt does not exclude the possibility of exposure to Hepatitis A virus. HEPATITIS C AB NON-REACT NICK Non-react nick 08/03/2024 7:22 AM [facility] Comment:Antibodies to HCV we re not detected, does not exclude the possibility of exposure to HCV. Blood Venipuncture / Unknown 08/03/2024 6:14 AM SEISMIC ENGINEER 08/03/2024 6:41 AM SEISMIC ENGINEER Brijesh Larsen MD CHEMISTRY ORDERABLES Karolina l Result [facility] CLIA# [id number] [place] [address] * (ABNORMAL) TROPONIN 6 HR, 5TH GEN (08/02/2024 1:07 PM SEISMIC ENGINEER) TROPONIN T, 6 HR 5TH GEN 2,209(HH) <=15 ng/L 08/02/2024 2:09 PM SEISMIC ENGINEER [facility] DELTA 6HR TROPONIN T % 92(HH) See Interp. % 08/02/2024 2:09 PM SEISMIC ENGINEER [facility] Blood Venipuncture / Unknown 08/02/2024 1:07 PM SEISMIC ENGINEER 08/02/2024 1:32 PM SEISMIC ENGINEER Narrative [facility] [employer] [facility] - 08/02/2024 2:09 PM SEISMIC ENGINEER Troponin elevated. Delta significant change. Dominguez Matthew MD CHEMISTRY ORDERABLES Final Result Performing Organization Address [facility] Co de Phone Number [facility]# [id number] [place] [address] * HEPATITIS B SURFACE ANTIGEN (08/02/2024 1:07 PM SEISMIC ENGINEER) Pathologist [facility] HEPATITIS B SURFACE AG NON-REACT NICK Non-react nick 08/02/2024 4:29 PM SEISMIC ENGINEER [facility] Comment:A non-reactive test result does not exclude the possibility of exposure to or infection with hepatitis B. Blood Venipuncture / Unknown 08/02/2024 1:07 PM SEISMIC ENGINEER 08/02/2024 1:32 PM SEISMIC ENGINEER Brijesh Larsen MD CHEMISTRY ORDERABLES Karolina l Result Performing Organization Address [facility] Co de Phone Number [facility]# [id number] [place] [address] * ECHO COMPLETE - CONTRAST AND STRAIN IF INDICATED (08/02/2024 11:08 AM SEISMIC ENGINEER) Pathologist [facility] EJECTION FRACTION 25 INTERFACE SYSTEM 08/02/2024 10:3 7 AM SEISMIC ENGINEER Narrative INTERFACE SYSTEM - 08/02/2024 11:27 AM SEISMIC ENGINEER Transthoracic Echocardiogram Patient: Armen Jimenez Study ID: [id number] Gender: M : 1940 Age: 84 Race: BRITNEY Height 182.9cm Study Date: 08/02/2024 Weight: 106.7kg Access. #: [id number] BP: 92 / 80 *Referring Physician:* Haile Du *Ordering Physician:* Haile Du *Bulk Truck Driver:* Joana Freedman [facility] field traffic investigator: Nurse: Indications: Hypotension or Hemodynamic Instability; Elevated troponin; Hypotension or hemodynamic instability of uncertain or suspected cardiac etiology. History: PMH: Heart attack. Risk factors: Hypertension. STUDY CONCLUSIONS: SUMMARY: - Left ventricle: The cavity size was normal. Wall thickness was increased in a pattern of severe LVH. Global systolic function is severely reduced. The estimated ejection fraction is 25-30%. For Epic reporting: the left ventricular ejection fraction is 25% . There is diffuse hypokinesis. ACcentuated hypokinesis in the inferolateral wall. Diastolic function assessment consistent with increased left atrial pressure. - Aortic valve: . The leaflets are calcified. There was severe stenosis. Mild regurgitation. - Systemic arteries: The ascending aorta A-P systolic diameter is 4.5cm. - Mitral valve: Severe regurgitation. - Left atrium: The atrium is severely dilated. - Right ventricle: The cavity size is mildly dilated. - Right atrium: The atrium was severely dilated. - Tricuspid valve: Severe regurgitation. - Pulmonic valve: Mild regurgitation. - Pulmonary arteries: The peak systolic pressure is 54mm Hg. - Pericardium: A small pericardial effusion is identified. There is no evidence of hemodynamic compromise. There was a left pleural effusion. Cardiac Anatomy: LEFT VENTRICLE: The cavity size was normal. Wall thickness was increased in a pattern of severe LVH. Global systolic function is severely reduced. The estimated ejection fraction is 25-30%. For Epic reporting: the left ventricular ejection fraction is 25% . There is diffuse hypokinesis. Diastolic function assessment consistent with increased left atrial pressure. AORTIC VALVE: Not well visualized. . The leaflets are calcified. There was severe stenosis. Mild regurgitation. The mean systolic gradient is 36mm Hg. The peak systolic gradient is 61mm Hg. The LVOT to aortic valve VTI ratio is 0.14. The valve area is 0.6cm^2. The ratio of LVOT to aortic valve peak velocity is 0.15. AORTA: Aortic root: The root is normal-sized. Ascending aorta: The vessel is mildly dilated. MITRAL VALVE: Structurally normal valve. Severe regurgitation. The mean diastolic gradient is 1mm Hg. The peak diastolic gradient is 4mm Hg. LEFT ATRIUM: The atrium is severely dilated. RIGHT VENTRICLE: The cavity size is mildly dilated. Systolic function is moderately reduced. PULMONIC VALVE: Structurally normal valve. Mild regurgitation. TRICUSPID VALVE: Structurally normal valve. Severe regurgitation. The peak diastolic gradient is 2mm Hg. RIGHT ATRIUM: The atrium was severely dilated. SYSTEMIC VEINS: Inferior vena cava: The IVC is normal-sized. PERICARDIUM: A small pericardial effusion is identified. There is no evidence of hemodynamic compromise. There was a left pleural effusion. Measurements Left ventricle Value Ref IVS, ES, LAX 2.0 cm --------- GÉNESIS, LAX (L) 3.9 cm 4.2 - 5.8 GÉNESIS/bsa, LAX (L) 1.7 cm/m^2 2.2 - 3.0 GÉNESIS, LAX chord (N) 5.2 cm 4.2 - 5.8 ESD, LAX chord (N) 3.9 cm 2.5 - 4.0 GÉNESIS/bsa, LAX chord (N) 2.3 cm/m^2 2.2 - 3.0 ESD/bsa, LAX chord (N) 1.7 cm/m^2 1.3 - 2.1 FS, LAX chord (N) 25 % 25 - 43 IVS, ED (H) 1.8 cm 0.6 - 1.0 IVS, ES 2.0 cm --------- IVS thickening 11 % --------- PW, ED (H) 1.8 cm 0.6 - 1.0 PW, ES 2.0 cm --------- EDV, 2-p (N) 149 ml 62 - 150 ESV, 2-p (H) 81 ml 21 - 61 SV, 2-p 68 ml --------- SV/bsa, 2-p 29.7 ml/m^2 --------- E', med mark, TDI (L) 4.2 cm/sec >=7.0 E/e', med mark, TDI 20 --------- LVOT Value Ref Diam, S 2.3 cm --------- Area 4.2 cm^2 --------- Peak chiara, S 0.58 m/sec --------- VTI, S 10.8 cm --------- Right ventricle Value Ref GÉNESIS minor ax, A4C base (H) 4.8 cm 2.5 - 4.1 GÉNESIS minor ax, A4C mid (N) 3.5 cm 1.9 - 3.5 GÉNESIS major ax, A4C (H) 10.0 cm 5.9 - 8.3 TAPSE, MM (N) 1.8 cm >=1.7 Pressure, S 54 mm Hg --------- S' lateral (L) 5.4 cm/sec >=9.5 Left atrium Value Ref AP dim, ES (H) 5.5 cm 3.0 - 4.0 AP dim index, ES (H) 2.4 cm/m^2 1.5 - 2.3 SI dim, A4C 7.0 cm --------- Area ES, A4C (H) 37 cm^2 <=20 Area/bsa ES, A4C 16.36 cm^2/m^2 --------- SI dim, A2C 7.2 cm --------- SI dim, shorter 7.0 cm --------- Vol, ES, 1-p A4C (H) 156 ml 18 - 58 Vol/bsa, ES, 1-p A4C (H) 68 ml/m^2 12 - 37 Vol, ES, 1-p A2C (H) 156 ml 18 - 58 Vol/bsa, ES, 1-p A2C (H) 68 ml/m^2 11 - 43 Vol, ES, 2-p 158 ml --------- Vol/bsa, ES, 2-p (H) 69 ml/m^2 16 - 34 LA/Ao root ratio 1.57 --------- Right atrium Value Ref SI dim, ES, A4C (H) 7.2 cm 3.4 - 5.3 SI dim/bsa, ES, A4C (H) 3.2 cm/m^2 1.8 - 3.0 Area, ES, A4C (H) 31 cm^2 10 - 18 Vol, ES, 1-p A4C 109 ml --------- Vol/bsa, ES, 1-p A4C (H) 48 ml/m^2 11 - 39 Aortic valve Value Ref Peak v, S 3.9 m/sec --------- Mean v, S 2.82 m/sec --------- VTI, S 77.2 cm --------- Mean grad, S 36 mm Hg --------- Peak grad, S 61 mm Hg --------- LVOT/AV, VTI ratio 0.14 --------- COSMO, VTI 0.6 cm^2 --------- COSMO/bsa, VTI 0.25 cm^2/m^2 --------- LVOT/AV, Vpeak ratio 0.15 --------- COSMO, Vmax 0.6 cm^2 --------- COSMO/bsa, Vmax 0.27 cm^2/m^2 --------- AR PHT 456 ms --------- Mitral valve Value Ref Peak E 0.85 m/sec --------- Peak A 0.2 m/sec --------- PHT 45 ms --------- Mean grad, D 1 mm Hg --------- Peak grad, D 4 mm Hg --------- Peak E/A ratio 4.3 --------- MVA, PHT 4.9 cm^2 --------- MVA/bsa, PHT 2.14 cm^2/m^2 --------- Pulmonic valve Value Ref Peak v, S 0.68 m/sec --------- Peak grad, S 2 mm Hg --------- Tricuspid valve Value Ref Peak E 0.73 m/sec --------- Peak grad, D 2 mm Hg --------- TR peak v (H) 3.3 m/sec <=2.8 Peak RV-RA grad, S 44 mm Hg --------- Aortic root Value Ref Root diam, 3.5 cm --------- Ascending aorta Value Ref AAo AP diam, S 4.5 cm --------- AAo AP diam/bsa, S 2.0 cm/m^2 --------- Pulmonary artery Value Ref Pressure, S 54 mm Hg --------- Systemic veins Value Ref Estimated RA pressure 10 mm Hg --------- Legend: (L) and (H) muna values outside specified reference range. (N) ochoa values inside specified reference range. Procedure data: [facility] No prior study was available for comparison. Study status: Routine. Procedure information: A transthoracic echocardiogram was performed. Image quality was adequate. Scanning was performed from the parasternal, apical, and subcostal acoustic windows. Transthoracic echocardiogram. Complete 2D, complete spectral Doppler, and color Doppler. Birthdate: Patient birthdate: 1940. Age: Patient is 84year(s) old. Sex: gender: male. Height: 182.9cm. 72in. Weight: 106.7kg. 235.2lb. Body mass index: 31.9kg/m^2. Body surface area: 2.28m^2. Heart rate: 81bpm. Blood pressure: 92/80 Patient status: Inpatient. Study date: Study date: 08/02/2024. Study time: 10:37 AM. Location: Bedside. Prepared and Electronically Authenticated Armen Davis M.D. [id number] Procedure Note Armen Davis MD - 08/02/2024 Transthoracic Echocardiogram Patient: Armen Jimenez Study ID: [id number] Gender: M : 1940 Age: 84 Race: BRITNEY Height 182.9cm Study Date: 08/02/2024 Weight: 106.7kg Access. #: [id number] BP: 92 / 80 *Referring Physician:* Haile Du *Ordering Physician:* Haile Du *Bulk Truck Driver:Letty Freedman [facility] field traffic investigator: Nurse: Indications: Hypotension or Hemodynamic Instability; Elevated troponin; Hypotensionor hemodynamic instability of uncertain or suspected cardiac etiology. History: PMH: Heart attack. Risk factors: Hypertension. STUDY CONCLUSIONS: SUMMARY: - Left ventricle: The cavity size was normal. Wall thickness was increasedin a pattern of severe LVH. Global systolic function is severely reduced.The estimated ejection fraction is 25-30%. For Epic reporting: the left ventricular ejection fraction is 25% . There is diffuse hypokinesis. ACcentuated hypokinesis in the inferolateral wall. Diastolic function assessment consistent with increased left atrial pressure. - Aortic valve: . The leaflets are calcified. There was severe stenosis.Mild regurgitation. - Systemic arteries: The ascending aorta A-P systolic diameter is 4.5cm. - Mitral valve: Severe regurgitation. - Left atrium: The atrium is severely dilated. - Right ventricle: The cavity size is mildly dilated. - Right atrium: The atrium was severely dilated. - Tricuspid valve: Severe regurgitation. - Pulmonic valve: Mild regurgitation. - Pulmonary arteries: The peak systolic pressure is 54mm Hg. - Pericardium: A small pericardial effusion is identified. There is no evidence of hemodynamic compromise. There was a left pleural effusion. Cardiac Anatomy: LEFT VENTRICLE: The cavity size was normal. Wall thickness was increasedin a pattern of severe LVH. Global systolic function is severely reduced. The estimated ejection fraction is 25-30%. For Epic reporting: the left ventricular ejection fraction is 25% . There is diffuse hypokinesis.Diastolic function assessment consistent with increased left atrial pressure. AORTIC VALVE: Not well visualized. . The leaflets are calcified. Therewas severe stenosis. Mild regurgitation. The mean systolic gradient is 36mmHg. The peak systolic gradient is 61mm Hg. The LVOT to aortic valve VTI ratiois 0.14. The valve area is 0.6cm^2. The ratio of LVOT to aortic valve peak velocity is 0.15. AORTA: Aortic root: The root is normal-sized. Ascending aorta: The vessel is mildly dilated. MITRAL VALVE: Structurally normal valve. Severe regurgitation. Themean diastolic gradient is 1mm Hg. The peak diastolic gradient is 4mm Hg. LEFT ATRIUM: The atrium is severely dilated. RIGHT VENTRICLE: The cavity size is mildly dilated. Systolic functionis moderately reduced. PULMONIC VALVE: Structurally normal valve. Mild regurgitation. TRICUSPID VALVE: Structurally normal valve. Severe regurgitation.The peak diastolic gradient is 2mm Hg. RIGHT ATRIUM: The atrium was severely dilated. SYSTEMIC VEINS: Inferior vena cava: The IVC is normal-sized. PERICARDIUM: A small pericardial effusion is identified. There is noevidence of hemodynamic compromise. There was a left pleural effusion. Measurements Left ventricle Value Ref IVS, ES, LAX 2.0 cm --------- GÉNESIS, LAX (L) 3.9 cm 4.2 - 5.8 GÉNESIS/bsa, LAX (L) 1.7 cm/m^2 2.2 - 3.0 GÉNESIS, LAX chord (N) 5.2 cm 4.2 - 5.8 ESD, LAX chord (N) 3.9 cm 2.5 - 4.0 GÉNESIS/bsa, LAX chord (N) 2.3 cm/m^2 2.2 - 3.0 ESD/bsa, LAX chord (N) 1.7 cm/m^2 1.3 - 2.1 FS, LAX chord (N) 25 % 25 - 43 IVS, ED (H) 1.8 cm 0.6 - 1.0 IVS, ES 2.0 cm --------- IVS thickening 11 % --------- PW, ED (H) 1.8 cm 0.6 - 1.0 PW, ES 2.0 cm --------- EDV, 2-p (N) 149 ml 62 - 150 ESV, 2-p (H) 81 ml 21 - 61 SV, 2-p 68 ml --------- SV/bsa, 2-p 29.7 ml/m^2 --------- E', med mark, TDI (L) 4.2 cm/sec >=7.0 E/e', med mark, TDI 20 --------- LVOT Value Ref Diam, S 2.3 cm --------- Area 4.2 cm^2 --------- Peak chiara, S 0.58 m/sec --------- VTI, S 10.8 cm --------- Right ventricle Value Ref GÉNESIS minor ax, A4C base (H) 4.8 cm 2.5 - 4.1 GÉNESIS minor ax, A4C mid (N) 3.5 cm 1.9 - 3.5 GÉNESIS major ax, A4C (H) 10.0 cm 5.9 - 8.3 TAPSE, MM (N) 1.8 cm >=1.7 Pressure, S 54 mm Hg --------- S' lateral (L) 5.4 cm/sec >=9.5 Left atrium Value Ref AP dim, ES (H) 5.5 cm 3.0 - 4.0 AP dim index, ES (H) 2.4 cm/m^2 1.5 - 2.3 SI dim, A4C 7.0 cm --------- Area ES, A4C (H) 37 cm^2 <=20 Area/bsa ES, A4C 16.36 cm^2/m^2 --------- SI dim, A2C 7.2 cm --------- SI dim, shorter 7.0 cm --------- Vol, ES, 1-p A4C (H) 156 ml 18 - 58 Vol/bsa, ES, 1-p A4C (H) 68 ml/m^2 12 - 37 Vol, ES, 1-p A2C (H) 156 ml 18 - 58 Vol/bsa, ES, 1-p A2C (H) 68 ml/m^2 11 - 43 Vol, ES, 2-p 158 ml --------- Vol/bsa, ES, 2-p (H) 69 ml/m^2 16 - 34 LA/Ao root ratio 1.57 --------- Right atrium Value Ref SI dim, ES, A4C (H) 7.2 cm 3.4 - 5.3 SI dim/bsa, ES, A4C (H) 3.2 cm/m^2 1.8 - 3.0 Area, ES, A4C (H) 31 cm^2 10 - 18 Vol, ES, 1-p A4C 109 ml --------- Vol/bsa, ES, 1-p A4C (H) 48 ml/m^2 11 - 39 Aortic valve Value Ref Peak v, S 3.9 m/sec --------- Mean v, S 2.82 m/sec --------- VTI, S 77.2 cm --------- Mean grad, S 36 mm Hg --------- Peak grad, S 61 mm Hg --------- LVOT/AV, VTI ratio 0.14 --------- COSMO, VTI 0.6 cm^2 --------- COSMO/bsa, VTI 0.25 cm^2/m^2 --------- LVOT/AV, Vpeak ratio 0.15 --------- COSMO, Vmax 0.6 cm^2 --------- COSMO/bsa, Vmax 0.27 cm^2/m^2 --------- AR PHT 456 ms --------- Mitral valve Value Ref Peak E 0.85 m/sec --------- Peak A 0.2 m/sec --------- PHT 45 ms --------- Mean grad, D 1 mm Hg --------- Peak grad, D 4 mm Hg --------- Peak E/A ratio 4.3 --------- MVA, PHT 4.9 cm^2 --------- MVA/bsa, PHT 2.14 cm^2/m^2 --------- Pulmonic valve Value Ref Peak v, S 0.68 m/sec --------- Peak grad, S 2 mm Hg --------- Tricuspid valve Value Ref Peak E 0.73 m/sec --------- Peak grad, D 2 mm Hg --------- TR peak v (H) 3.3 m/sec <=2.8 Peak RV-RA grad, S 44 mm Hg --------- Aortic root Value Ref Root diam, 3.5 cm --------- Ascending aorta Value Ref AAo AP diam, S 4.5 cm --------- AAo AP diam/bsa, S 2.0 cm/m^2 --------- Pulmonary artery Value Ref Pressure, S 54 mm Hg --------- Systemic veins Value Ref Estimated RA pressure 10 mm Hg --------- Legend: (L) and (H) muna values outside specified reference range. (N) ochoa values inside specified reference range. Procedure data: [facility] No prior study was available for comparison. Studystatus: Routine. Procedure information: A transthoracic echocardiogram was performed. Image quality was adequate. Scanning was performed from the parasternal, apical, and subcostal acoustic windows.Transthoracic echocardiogram. Complete 2D, complete spectral Doppler, and colorDoppler. Birthdate: Patient birthdate: 1940. Age: Patient is 84year(s)old. Sex: gender: male. Height: 182.9cm. 72in. Weight: 106.7kg.235.2lb. Body mass index: 31.9kg/m^2. Body surface area: 2.28m^2. Heartrate: 81bpm. Blood pressure: 92/80 Patient status: Inpatient. Studydate: Study date: 08/02/2024. Study time: 10:37 AM. Location: Bedside. Prepared and Electronically Authenticated Armen Davis M.D. [id number] us Haile Du NP US ORDERABLES Final Result INTERFACE SYSTEM Refer to clinic/hospital department * (ABNORMAL) TROPONIN 2 HR, 5TH GEN (08/02/2024 8:55 AM SEISMIC ENGINEER) TROPONIN T, 2 HR 5TH GEN 1,607() <=15 ng/L 08/02/2024 10:02 AM SEISMIC ENGINEER [facility] DELTA 2HR TROPONIN T % 40(HH) See Interp. % 08/02/2024 10:02 AM SEISMIC ENGINEER [facility] Blood Venipuncture / Unknown 08/02/2024 8:55 AM SEISMIC ENGINEER 08/02/2024 9:29 AM SEISMIC ENGINEER Narrative [facility] - 08/02/2024 10:02 AM SEISMIC ENGINEER Troponin elevated. Delta significant change. Dominguez Matthew MD CHEMISTRY ORDERABLES Final Result Performing Organization Address City/[facility]/[place] Co de Phone Number [facility] [id number] [place] [address] * VERIFICATION BLOOD GROUP (08/02/2024 7:36 AM SEISMIC ENGINEER) ABO GROUP O 08/02/2024 8:30 AM SEISMIC ENGINEER [facility] RH (D) TYPE Positive 08/02/2024 8:30 AM SEISMIC ENGINEER [facility] Blood Venipuncture / Unknown 08/02/2024 7:36 AM SEISMIC ENGINEER 08/02/2024 7:45 AM SEISMIC ENGINEER us Lucy Langford MD BLOOD BANK ORDERABLES Fi nal Result [facility] CLIA# [id number] [place] [address] * EXTRA TUBE (BLUE) (08/02/2024 6:16 AM SEISMIC ENGINEER) Blood BLOOD SPECIMEN / Unknown Venipuncture / Unknown 08/02/2024 6:16 AM SEISMIC ENGINEER 08/02/2024 7:22 AM SEISMIC ENGINEER Lucy Langford MD HEMATOLOGY ORDERABLES Fi nal Result [facility] [id number] [place] [address] * (ABNORMAL) TROPONIN BASELINE, 5TH GEN (08/02/2024 6:16 AM SEISMIC ENGINEER) TROPONIN T, BASELINE 5TH GEN 1,150(HH) <=15 ng/L 08/02/2024 7:59 AM SEISMIC ENGINEER [facility] Blood Venipuncture / Unknown 08/02/2024 6:16 AM SEISMIC ENGINEER 08/02/2024 6:36 AM SEISMIC ENGINEER [facility] - 08/02/2024 7:59 AM SEISMIC ENGINEER Troponin elevated. Dominguez Matthwe MD CHEMISTRY ORDERABLES Final Result Performing Organization Address City/[facility]/ZIP Co de Phone Number [facility] CLIA# [id number] [place] [address] * PROCALCITONIN (08/02/2024 6:16 AM SEISMIC ENGINEER) PROCALCITONIN 0.65 <2.01 ng/mL 08/02/2024 7:32 AM SEISMIC ENGINEER [facility] Blood Venipuncture / Unknown 08/02/2024 6:16 AM SEISMIC ENGINEER 08/02/2024 6:36 AM SEISMIC ENGINEER Critical access hospital [facility] [employer] [facility] - 08/02/2024 7:32 AM SEISMIC ENGINEER The utility of procalcitonin is limited/NOT recommended in certain populations (e.g. newborns, dialysis/ESRD, patients with recent major surgery/trauma/mensah, liver cirrhosis, viral hepatitis, certain cancers, etc.). Procalcitonin levels MUST be interpreted in the context of the patient's clinical condition and CANNOT be solely relied upon for diagnosis of infection. <0.25 ng/mL: Bacterial infection unlikely, particularly lower respiratory tract infections. <0.5 ng/mL: Low risk for progression to severe sepsis/septic shock. Localized infection possible. Measurements done early (<6 hours) after systemic process starts may still be low. 0.5-2 ng/mL: Moderate risk for progression to severe sepsis/septic shock. >2 ng/mL: High risk for progression to severe sepsis/septic shock. If antibiotics ARE administered, repeat testing is recommended every 2-3 days to help guide antibiotic cessation. Once a decrease of 80% or more has occurred from baseline, discontinuation of antibiotics should strongly be considered in clinically stable patients. Procalcitonin is produced in the setting of systemic inflammation, particularly bacterial infections. It is detectable within 2-4 hours and peaks within 6-24 hours. Dominguez Matthew MD CHEMISTRY ORDERABLES Final Result Performing Organization Address City/[facility]/ZIP Co de Phone Number [facility] [employer] [id number] [place] [address] * (ABNORMAL) PROTIME-INR (08/02/2024 6:16 AM SEISMIC ENGINEER) Pathologist [facility] PROTIME 21.4(H) 11.5 - 14.7 Seconds 08/02/2024 7:18 AM SEISMIC ENGINEER [facility] [employer] [facility] INR 1.8(H) 0.9 - 1.1 08/02/2024 7:18 AM SEISMIC ENGINEER [facility] [employer] [facility] Blood Venipuncture / Unknown 08/02/2024 6:16 AM SEISMIC ENGINEER 08/02/2024 6:30 AM SEISMIC ENGINEER Haile Du NP HEMATOLOGY ORDERABLES Final R esult [facility] CLIA# [id number] [place] [address] * TYPE AND SCREEN (08/02/2024 6:16 AM SEISMIC ENGINEER) ABO GROUP O 08/02/2024 7:37 AM SEISMIC ENGINEER [facility] [employer] [facility] RH (D) TYPE Positive 08/02/2024 7:37 AM SEISMIC ENGINEER [facility] [employer] [facility] ANTIBODY SCREEN Negative 08/02/2024 7:37 AM SEISMIC ENGINEER [facility] Blood Venipuncture / Unknown 08/02/2024 6:16 AM SEISMIC ENGINEER 08/02/2024 6:30 AM SEISMIC ENGINEER Haile Du FOUNDRY HELPER BLOOD BANK ORDERABLES Edited Result - Final [facility]# [id number] [id number] [place] [address] * (ABNORMAL) C-REACTIVE PROTEIN (08/02/2024 6:16 AM SEISMIC ENGINEER) CRP 68.3(H) <5.0 mg/L 08/02/2024 7:05 AM SEISMIC ENGINEER [facility] Blood Venipuncture / Unknown 08/02/2024 6:16 AM SEISMIC ENGINEER 08/02/2024 6:36 AM SEISMIC ENGINEER Dominguez Matthew MD CHEMISTRY ORDERABLES Final Result [facility] [id number] [place] [address] * (ABNORMAL) TROPONIN (08/02/2024 6:16 AM SEISMIC ENGINEER) TROPONIN T, 5TH GEN 1,096(HH) <=15 ng/L 08/02/2024 7:21 AM SEISMIC ENGINEER [facility] Blood Venipuncture / Unknown 08/02/2024 6:16 AM SEISMIC ENGINEER 08/02/2024 6:36 AM SEISMIC ENGINEER Narrative [facility] - 08/02/2024 7:21 AM SEISMIC ENGINEER Troponin elevated. Haile Du FOUNDRY HELPER CHEMISTRY ORDERABLES Final Re sult [facility] [id number] [place] [address] * XR PRIOR STUDY (08/02/2024 3:15 AM SEISMIC ENGINEER) Narrative [facility] - 08/02/2024 6:21 AM SEISMIC ENGINEER This exam was auto finalized to allow images to be scanned to PACS. us External Provider [facility] DIAGNOSTIC IMAGING ORDERA BLES Final Result [facility] CLIA # [id number] [place] [address] from Last 3 Months Insurance MEDICARE PART A AND B [facility] MEDICARE PART A AND B BS FEDERAL Advance Directives For more information, please contact: [phone] * NO CPR (In Event of Cardiopulmonary Arrest) (Latest Code Status on File) Date Activated Date Inactivated Comments 08/02/2024 6:40 AM 08/10/2024 4:37 PM Question Answer Comments Mechanical Ventilation (for respiratory distress) - Invasive (i.e. intubation): Yes Mechanical Ventilation (for respiratory distress) - Non-Invasive (i.e. BiPAP, CPAP): Yes * Default Full Code - Needs Discussion Date Activated Date Inactivated Comments 08/02/2024 6:07 AM 08/02/2024 6:40 AM Care Teams Elevator Dispatcher Relationship Specialty Start Date End Date Dickson Land MD [address] [facility] [address] [phone] PCP - General Family Practice 04/17/22
--- OUTSIDE RECORDS SUMMARY | 2024-09-29 10:50 | XMS_ITS | Encounter Summary ---
Author Organization [facility] Healthcare Address [address] [place] [address] Care Team Providers Care Monitor Technician Name Role Phone Dickson Land MD Primary Care Provider Dionicio Carrasquillo MD Unavailable [phone] Encounter Details Date Type Department Care Team (Late st Contact Info) Description 03/21/2019 Documentation [facility] Case Management [address] [place] [address] Opal Crawley RN Social History Tobacco Use Types Packs/Day Years Used Date Smoking Tobacco: Never Smokeless Tobacco: Never Alcohol Use Standard Drinks/Week Comments Yes 0 (1 standard drink = 0.6 oz pur e alcohol) rare Sex and Gender Information Value Date Recorded Sex Assigned at Not on file Legal Sex Male 8:18 AM CDT Gender Identity Not on file Sexual Orientation Not on file documented as of this encounter Plan of Treatment Not on file documented as of this encounter Visit Diagnoses Not on filedocumented in this encounter Care Teams Monitor Technician Relationship Specialty Start Date End Date Dickson Land MD [address] [place] [address] PCP - General Family Medicine 01/27/19 Dionicio Carrasquillo MD [id number] [place] [address] Surgeon Surgery 03/05/23 documented as of this encounter
--- OUTSIDE RECORDS SUMMARY | 2024-09-29 10:50 | XMS_ITS | Clinical Summary ---
Author Organization [facility] Address [address] [place] [address] Care Team Providers Care Manufacturing Engineer Chief Name Role Phone Dickson Land MD Primary Care Provider [phone] Allergies No known active allergies Medications allopurinol 300 MG tabletIndications: gout Take 150 mg by mouth daily. Indications: gout 12/10/19 Active gabapentin 300 MG capsuleIndications :Neuropathy Take 300 mg by mouth daily. Indications: Nerve Disease 12/10/19 Active gabapentin 400 MG capsuleIndications :Neuropathy Take 400 mg by mouth nightly at bedtime. Indications: Nerve Disease 12/10/19 Active olopatadine 0.2 % SolutionIndication s:Allergic Conjunctivitis Apply 1 drop to eye daily as needed. Indications: Allergic Conjunctivitis 03/05/20 Active [place]-3 Fatty Acids (FISH OIL) 1200 MG Cap Take 1,200 mg by mouth daily. Active colchicine 0.6 MG tablet Take 0.6 mg by mouth daily as needed. Active fluticasone furoate 27.5 MCG/SPRAY SuspensionIndicati ons:Allergic Rhinitis 1 spray by Nasal route as needed. Indications: Allergic Rhinitis 03/05/20 Active metoprolol succinate ER 25 MG 24 hr tablet Take 1 tablet (25 mg total) by mouth 2 (two) times daily. 60 tablet 02/18/20 Active Additional Information Patient taking differently:25 mg Oral 2 times daily,Indications: Hypertension, Reported on 07/13/2022 amiodarone 200 MG tabletIndications: Hypertension Take 200 mg by mouth daily. Indications: High Blood Pressure Disorder 03/05/20 Active aspirin 81 MG chewable tabletIndications: Anticoagulant Therapy Chew 81 mg by mouth daily. Indications: Anticoagulant Therapy 03/13/20 Active Active Problems Problem Noted Date Diagnosed Date ESRD (end stage renal disease) ([facility]) 02/26/2022 DELANEY (acute kidney injury) 02/26/2022 Hypotension 02/26/2022 NSTEMI (non-ST elevated myoc ardial infarction) ([facility]) 02/04/2022 Stage 4 chronic kidney disease ([facility]) 07/26/2021 Encounters Date Type Department Care Team Description 08/02/2024 2:46 AM DANCE CHOREOGRAPHER - 08/02/2024 5:10 AM DANCE CHOREOGRAPHER Emergency [facility] Emergency Room [address] [place] [address] Mg Willingham MD Medical Problem Discharge Disposition: Another Health Care Institution Not Defined 08/02/2024 Travel from Last 3 Months Immunizations Name Administration Dates Next Due Fluzone High Dose - >Age 65 (Prefilled Syringe) 05/25/2021,04/27/2020 Influenza Adult (Generic) 05/31/2019,05/25/2018, 08/07/2016 Pneumococcal (Pneumovax 23) 12/02/2018 Pneumococcal (Prevnar 13) 02/27/2016 Shingrix 08/23/2018,05/25/2018 Tdap (Generic) 12/02/2018 Family History Medical History Relation Comments Stroke Mother Relation Status Comments Mother Social History Tobacco Use Types Packs/Day Years Used Date Smoking Tobacco: Never Smokeless Tobacco: Never Alcohol Use Standard Drinks/Week Comments Yes 0 (1 standard drink = 0.6 oz pur e alcohol) occasionally Sex and Gender Information Value Date Recorded Sex Assigned at Not on file Legal Sex Male 4:05 PM CDT Gender Identity Not on file Sexual Orientation Not on file Last Filed Vital Signs Vital Sign Reading Time Taken Comments Blood Pressure 79/60 08/02/2024 4:40 AM DANCE CHOREOGRAPHER Pulse 99 08/02/2024 4:40 AM DANCE CHOREOGRAPHER Temperature 36.1 C (97 F) 08/02/2024 4:40 AM DANCE CHOREOGRAPHER Respiratory Rate 16 08/02/2024 4:40 AM DANCE CHOREOGRAPHER Oxygen Saturation 100% 08/02/2024 4:40 AM DANCE CHOREOGRAPHER Inhaled Oxygen Concentration - - Weight 108.1 kg (238 lb 5.1 oz) 08/02/2024 2:48 AM DANCE CHOREOGRAPHER Height 188 cm (6' 2 ) 08/02/2024 2:48 AM DANCE CHOREOGRAPHER Body Mass Index 30.6 08/02/2024 2:48 AM DANCE CHOREOGRAPHER Plan of Treatment Health Maintenance Due Date Last Done Comments Annual Medicare Wellness Visit 2006 RSV Immunization or 60+ Years (1 - 1-dose 75+ series) 2016 ASCVD LDL 02/04/2023 02/04/2022, 09/0 10/2020, 11/27/2020, Additional history exists COVID-19 Vaccine ( season) 2024 01/24/2022, 07/22/2021, 12/11/2020, Additional history exists Influenza Adult (#1) 2024 05/25/2021, 04/27/2020, 05/31/2019, Additional history exists DTaP, Tdap and Td Vaccines (2 - Td or Tdap) 12/02/2028 12/02/2018 Zoster Vaccines Completed 08/23/2018, 05/25/2018 Pneumococcal Vaccine: 65+ Years Completed 12/02/2018, 02/27/2016 Meningococcal B Vaccine Aged Out No l onger eligible based on patient's age to complete this topic Meningococcal Vaccine Aged Out No dakotah stephon eligible based on patient's age to complete this topic RSV Immunizations Under 20 Months Aged Out No longer eligible based on patient's age to complete this topic Medical Devices Implanted Type Area Technical Applications Specialist Device Identifier Shelf Expiration Date Model / Serial / Lot Arrow Next Step Retrograde Hemodialysis Catheter Implanted:Qty: 1 on 02/11/2022 by Kelton Palm MD at [facility] Catheter Implant Right: Neck [employer] [id number] 08/23/2024 [id number] / / [id number] Description:Right internal j ugular Procedures Procedure Name Priority Date/Time Associated Diagnosis Comments XR CHEST PORTABLE STAT 08/02/2024 3:2 8 AM DANCE CHOREOGRAPHER ECG 12-LEAD Routine 08/02/2024 3:08 AM DANCE CHOREOGRAPHER HEPARIN, ANTI XA, UFH STAT 08/02/2024 2:55 AM DANCE CHOREOGRAPHER BLOOD GAS, VENOUS STAT 08/02/2024 2:5 5 AM DANCE CHOREOGRAPHER TROPONIN, QUANT STAT 08/02/2024 2:55 AM DANCE CHOREOGRAPHER LACTIC ACID W REFLEX (SEPSIS) STAT 08/02/2024 2:55 AM DANCE CHOREOGRAPHER COMPREHENSIVE METABOLIC PANEL STAT 08/02/2024 2:55 AM DANCE CHOREOGRAPHER CBC W/DIFF AUTOMATED STAT 08/02/2024 2:55 AM DANCE CHOREOGRAPHER LIPID PANEL Routine 02/04/2022 6:40 AM CDT from Last 3 Months or Most Recently Relevant to Health Maintenance Results * XR CHEST PORTABLE (08/02/2024 3:28 AM DANCE CHOREOGRAPHER) Anatomical Region Laterality Modality Chest Radiographic [place] ging 08/02/2024 3:30 AM DANCE CHOREOGRAPHER Impressions 08/02/2024 3:32 AM DANCE CHOREOGRAPHER IMPRESSION: 1. Diffuse bilateral pulmonary opacity may represent mild pulmonary edema. 2. Small to moderate left pleural effusion. 3. Cardiac enlargement. Referred By: Interpreted By: Rubio Howell MD, 08/02/2024 3:30 AM Narrative 08/02/2024 3:32 AM DANCE CHOREOGRAPHER [facility] [address] [place] [address] INDICATION: Agonal breathing. New oxygen requirement. COMPARISON: July 13, 2022. TECHNIQUE: Single frontal view of the chest. FINDINGS: Lines and tubes: None. Lungs: There are diffuse bilateral pulmonary opacities, which may represent mild edema. There is a small to moderate left pleural effusion. There is no pneumothorax. Heart and Mediastinum: The heart is enlarged. There are thoracic aortic vascular calcifications. Procedure Note Rubio Howell MD - 08/02/2024 [facility] [address] [place] [address] INDICATION: Agonal breathing. New oxygen requirement. COMPARISON: July 13, 2022. TECHNIQUE: Single frontal view of the chest. FINDINGS: Lines and tubes: None. Lungs: There are diffuse bilateral pulmonary opacities, which mayrepresent mild edema. There is a small to moderate left pleural effusion. There is no pneumothorax. Heart and Mediastinum: The heart is enlarged. There are thoracic aortic vascular calcifications. IMPRESSION: 1. Diffuse bilateral pulmonary opacity may represent mild pulmonaryedema. 2. Small to moderate left pleural effusion. 3. Cardiac enlargement. Referred By: Interpreted By: Rubio Howell MD, 08/02/2024 3:30 AM us Mg Willingham MD GENERAL IMAGING Final Result * ECG 12 lead (08/02/2024 3:08 AM DANCE CHOREOGRAPHER) 08/02/2024 3:08 AM DANCE CHOREOGRAPHER Narrative [facility] ([facility]) RAD - 08/02/2024 3:49 PM DANCE CHOREOGRAPHER [facility] Test Date: 2024-08-02 Pat Name: ARMEN CUNNINGHAM Department: 85 Room: EXAM 202 Gender: Male [employer] Executive Director: : 1940 Requested By: MG WILLINGHAM Order Number: [id number] Reading MD: Champ Nichols Measurements Intervals [place] Rate: 91 P: UT: 0 QRS: -1 QRSD: 154 T: 75 QT: 411 QTc: 506 Interpretive Statements ATRIAL FIBRILLATION WITH ABERRANT CONDUCTION OR VENTRICULAR PREMATURE COMPLEXES RIGHT BUNDLE BRANCH BLOCK [120+ ms QRS DURATION, UPRIGHT V1, 40+ ms S IN I/aVL/V4/V5/V6] Compared to ECG 07/13/2022 07:45:48 Ventricular premature complex(es) now present Aberrant conduction of supraventricular beat(s) now present Sinus rhythm no longer present First degree AV block no longer present E CHOREOGRAPHER Procedure Note Champ Nichols MD - 08/02/2024 [facility] Test Date: 2024-08-02 Pat Name: ARMEN CUNNINGHAM Department: 85 Room: EXAM 202 Gender: Male [employer] Executive Director: : 1940 Requested By: MG WILLINGHAM Order Number: [id number] Reading MD: Champ Nichols Measurements Intervals [place] Rate: 91 P: UT: 0 QRS: -1 QRSD: 154 T: 75 QT: 411 QTc: 506 Interpretive Statements ATRIAL FIBRILLATION WITH ABERRANT CONDUCTION OR VENTRICULAR PREMATURE COMPLEXES RIGHT BUNDLE BRANCH BLOCK [120+ ms QRS DURATION, UPRIGHT V1, 40+ ms SIN I/aVL/V4/V5/V6] Compared to ECG 07/13/2022 07:45:48 Ventricular premature complex(es) now present Aberrant conduction of supraventricular beat(s) now present Sinus rhythm no longer present First degree AV block no longer present E CHOREOGRAPHER Mg Willingham MD ECG ORDERABLES Final Result Performing Organization Address City/[facility]/ZIP Co de Phone Number [facility] ([facility]) RAD * (ABNORMAL) LACTIC ACID W REFLEX (SEPSIS) (08/02/2024 2:55 AM DANCE CHOREOGRAPHER) LACTIC ACID VENOUS 2.7(HH) 0.4 - 2.0 MMOL/L 08/02/2024 3:46 AM DANCE CHOREOGRAPHER [facility] Comment: Critical Result(s) Called at: 03:46:11 on 08/02/2024 by: KIKI TRUJILLO to and read back by:IGNACIO Mccormick 08/02/2024 2:55 AM DANCE CHOREOGRAPHER Mg Willingham MD LABORATORY Final Result [facility] [address] [place] [address], [place] [phone] * (ABNORMAL) HEPARIN, ANTI XA, UFH (08/02/2024 2:55 AM DANCE CHOREOGRAPHER) HEPARIN ANTI XA UFH 1.44(HH) 0.30 - 0.70 IU/ML 08/02/2024 4:23 AM DANCE CHOREOGRAPHER [facility] Comment: UFH Therapeutic Anti Xa Ranges: Medical Therapeutic Range: 0.30 - 0.70 IU/mL Cardiac Therapeutic Range: 0.30 - 0.50 IU/mL Neuro Therapeutic Range: 0.20 - 0.40 IU/mL CALLED RESULT CALLED TO TREVOR W 0422 RS READ BACK AND VERIFIED 08/02/2024 2:55 AM DANCE CHOREOGRAPHER us Mg Willingham MD LABORATORY Final Result [facility] [address] [place] [address], * (ABNORMAL) Blood gas, venous (08/02/2024 2:55 AM DANCE CHOREOGRAPHER) PH VENOUS 7.45(H) 7.32 - 7.43 08/02/2024 3:13 AM [facility] PCO2 VENOUS 49.0 MMHG 08/02/2024 3:13 AM [facility] Comment:NO REFERENCE RANGE H BEEN ESTABLISHED PO2 VENOUS 91.0 MM HG 08/02/2024 3:13 AM [facility] Comment:NO REFERENCE RANGE H BEEN ESTABLISHED TOTAL CO2 VENOUS 35.6(H) 22.0 - 26.0 MMOL/L 08/02/2024 3:13 AM [facility] BASE EXCESS VENOUS 8.6 MMOL/L 08/02/2024 3:13 AM [facility] Comment:NO REFERENCE RANGE H BEEN ESTABLISHED O2 SAT VENOUS 97 % 08/02/2024 3:13 AM DANCE CHOREOGRAPHER [facility] Comment:NO REFERENCE RANGE H BEEN ESTABLISHED BICARB VENOUS 34.1(H) 22.0 - 29.0 MMOL/L 08/02/2024 3:13 AM [facility] O2 ADMIN VENOUS 6 LITER PER MINUTE 08/02/2024 3:10 AM [facility] 08/02/2024 2:55 AM DANCE CHOREOGRAPHER us Mg Willingham MD LABORATORY Final Result [facility] [address] [place] [address], * (ABNORMAL) COMPREHENSIVE METABOLIC PANEL (08/02/2024 2:55 AM DANCE CHOREOGRAPHER) GLUCOSE 133(H) 70 - 99 MG/DL 08/02/2024 3:46 AM [facility] BUN 57(H) 7 - 18 MG/DL 08/02/2024 3:46 AM [facility] CREATININE S/P/B 8.94(HH) 0.7 - 1.3 MG/DL 08/02/2024 3:46 AM [facility] Comment: Critical Result(s) Called at: 03:45:58 on 08/02/2024 by: KIKI TRUJILLO to and read back by:IGNACIO Mccormick SODIUM S/P/B 143 136 - 145 MMOL/L 08/02/2024 3:46 AM [facility] POTASSIUM S/P/B 4.3 3.5 - 5.1 MMOL/L 08/02/2024 3:46 AM [facility] CHLORIDE S/P/B 100 100 - 108 MMOL/L 08/02/2024 3:46 AM [facility] CO2 30.8 21 - 32 MMOL/L 08/02/2024 3:46 AM [facility] CALCIUM S/P/B 9.2 8.5 - 10.1 MG/DL 08/02/2024 3:46 AM [facility] BILIRUBIN TOTAL S/P/B 1.4(H) 0.2 - 1.2 MG/DL 08/02/2024 3:46 AM [facility] TOTAL PROTEIN S/P/B 6.5 6.4 - 8.2 G/DL 08/02/2024 3:46 AM [facility] ALBUMIN S/P/B 2.7(L) 3.4 - 5.0 G/DL 08/02/2024 3:46 AM [facility] AST 34 15 - 37 U/L 08/02/2024 3:46 AM [facility] ALT 14(L) 16 - 60 U/L 08/02/2024 3:46 AM [facility] ALKALINE PHOSPHATASE S/P/B 177(H) 50 - 136 U/L 08/02/2024 3:46 AM [facility] ANION GAP 12.2 5 - 15 MMOL/L 08/02/2024 3:46 AM [facility] BUN CREATININE RATIO 6.4 6 - 26 08/02/2024 3:46 AM [facility] A/G RATIO 0.7(L) 1.0 - 2.0 RATIO 08/02/2024 3:46 AM [facility] GFR ESTIMATE 5(L) >90 ML/MIN/1.7 3 M2 08/02/2024 3:46 AM [facility] Comment: NOTE: eGFR is not calculated for patients <18 years of age. This is an estimated GFR calculation using the new CKD EPI creatinine equation without race and so does not require a correction factor for race. This estimated GFR should not be used for calculating drug doses. 08/02/2024 2:55 AM DANCE CHOREOGRAPHER us Mg Willingham MD LABORATORY Final Result [facility] [address] [address], [place] [phone] * (ABNORMAL) CBC W/DIFF AUTOMATED (08/02/2024 2:55 AM DANCE CHOREOGRAPHER) WBC 5.56 4.4 - 11.0 x10'3/uL 08/02/2024 3:48 AM DANCE CHOREOGRAPHER [facility] RBC 2.98(L) 4.50 - 5.90 x10'6/uL 08/02/2024 3:48 AM [facility] HGB 10.8(L) 14.0 - 17.5 G/DL 08/02/2024 3:48 AM [facility] HCT 31.8(L) 41.5 - 50.4 % 08/02/2024 3:48 AM [facility] MCV 106.7(H) 80.0 - 96.0 FL 08/02/2024 3:48 AM [facility] MCH 36.2(H) 26.5 - 31.4 PG 08/02/2024 3:48 AM [facility] MCHC 34.0 31.9 - 34.8 G/DL 08/02/2024 3:48 AM [facility] RDW 14.6(H) 12.3 - 14.3 % 08/02/2024 3:48 AM [facility] PLT 214 151 - 353 x10'3/uL 08/02/2024 3:48 AM [facility] MPV 10.0 9.7 - 11.9 FL 08/02/2024 3:48 AM [facility] RBC MORPHOLOGY NORMAL 08/02/2024 3:48 AM [facility] PLT MORPH. NORMAL 08/02/2024 3:48 AM [facility] WBC MORPHOLOGY NORMAL 08/02/2024 3:48 AM [facility] LYMPHOCYTES % 13.1(L) 15.8 - 45.0 % 08/02/2024 3:48 AM [facility] NEUTROPHILS % 71.1 42.1 - 71.9 % 08/02/2024 3:48 AM [facility] MONOCYTES % 14.9(H) 5.7 - 12.5 % 08/02/2024 3:48 AM [facility] EOSINOPHILS 0.2 0.0 - 5.6 % 08/02/2024 3:48 AM [facility] BASOPHILS 0.2 0.0 - 1.3 % 08/02/2024 3:48 AM [facility] ABS. NEUTROPHILS 3.95 1.40 - 6.00 x10'3/uL 08/02/2024 3:48 AM [facility] IMMATURE GRANS % 0.5 0.0 - 0.5 % 08/02/2024 3:48 AM [facility] ABS. LYMPHOCYTES 0.73(L) 0.80 - 4.70 x10'3/uL 08/02/2024 3:48 AM [facility] 08/02/2024 2:55 AM DANCE CHOREOGRAPHER us Mg Willingham MD LABORATORY Final Result [facility] [address] [place] [address], [place] [phone] * (ABNORMAL) TROPONIN, QUANT (08/02/2024 2:55 AM DANCE CHOREOGRAPHER) Pathologist [facility] TROPONIN I HIGH SENSITIVITY 7,830(HH) 0 - 75 ng/L 08/02/2024 3:46 AM DANCE CHOREOGRAPHER [facility] Comment: Critical Result(s) Called at: 03:46:23 on 08/02/2024 by: KIKI TRUJILLO to and read back by:IGNACIO Mccormick HIGH DOSES OF BIOTIN, TROPONIN-SPECIFIC AUTOANTIBODIES, AND ANTIBODY THERAPY CONTAINING HAMA MAY INTERFERE WITH THIS TEST RESULT. CORRELATION TO CLINICAL HISTORY AND PRESENTATION RECOMMENDED. 08/02/2024 2:55 AM DANCE CHOREOGRAPHER us Mg Willingham MD LABORATORY Final Result [facility] [address] [place] [address], [place] [phone] * (ABNORMAL) LIPID PANEL (02/04/2022 6:40 AM CDT) Pathologist [facility] CHOLESTEROL 119 <200 MG/DL 02/04/2022 7:24 AM CDT [facility] TRIGLYCERIDES 130 <150 MG/DL 02/04/2022 7:24 AM CDT [facility] HDL 31(L) >40.0 MG/DL 02/04/2022 7:24 AM CDT [facility] LDL (CALCULATED) 62 <100 MG/DL 02/05/20 7:24 AM CDT [facility] NON HDL CHOLESTEROL 88 <130 MG/DL 02/04 7:24 AM CDT [facility] CHOL/HDL RATIO 3.8 0.0 - 4.5 02/04/2022 7:24 AM CDT [facility] VLDL CALCULATION 26 5 - 55 MG/DL 02/04/2022 7:24 AM CDT [facility] LIPID INTERPRETATION 02/04/2022 7:24 AM CDT [facility] Comment: [facility] REPORT RECOMMENDATIONS: ADULT CHILD LOW RISK: CHOLESTEROL <200 <170 TRIGLYCERIDE <150 --- HDL >=60 --- LDL <100 <110 BORDERLINE: CHOLESTEROL 200-239 170-199 TRIGLYCERIDE 150-199 --- HDL 40-59 --- LDL 100-159 110-129 HIGH RISK: CHOLESTEROL >=240 >=200 TRIGLYCERIDE >=200 --- HDL <40 --- LDL >=160 >=130 02/04/2022 6:40 AM CDT Maria M Ott DO LABORATORY Final Result [facility] [address] [place] [address], from Last 3 Months or Most Recently Relevant to Health Maintenance Insurance MEDICARE [facility] Advance Directives Documents on File Type Date Recorded Patient Plastic Tile Layer Expl anation Power of Custom Ski Maker * Full Code (Latest Code Status on File) Date Activated Date Inactivated Comments 03/24/2022 6:02 PM 07/13/2022 6:40 AM * Full Code Date Activated Date Inactivated Comments 02/04/2022 3:44 PM 02/21/2022 5:01 PM * DNR Date Activated Date Inactivated Comments 02/04/2022 2:37 AM 02/04/2022 3:44 PM Care Teams Manufacturing Engineer Chief Relationship Specialty Start Date End Date Dickson Land MD [address] [place] [id number] PCP - General FAMILY PRACTICE 03/25/19
--- OUTSIDE RECORDS SUMMARY | 2024-09-29 10:50 | XMS_ITS | Encounter Summary ---
Author Organization [facility] Healthcare Address [address] [place] [address] Care Team Providers Care Insole And Outsole Splitter Name Role Phone Dickson Land MD Primary Care Provider Dionicio Carrasquillo MD Unavailable [phone] Encounter Details Date Type Department Care Team (Late st Contact Info) Description 08/13/2023 Telephone [facility] [address] [facility] [address] [place] [address] Dionicio Carrasquillo MD [address] [place] [id number] Social History Tobacco Use Types Packs/Day Years Used Date Smoking Tobacco: Never Passive Smoke Exposure: Past Smokeless Tobacco: Never Alcohol Use Standard Drinks/Week Comments Yes 0 (1 standard drink = 0.6 oz pur e alcohol) rare AUDIT-C Answer Date Recorded Q1: How often do you have a drink containing alc ohol? Never 03/05/2023 Q2: How many drinks containi ng alcohol do you have on a typical day when you are drinking? 1 or 2 03/05/2023 Q3: How often do you have six or more drinks on one occasion? Never 03/05/2023 Personal Safety Answer Date Recorded Getting School Help Needed Denies 08/05 Sex and Gender Information Value Date Recorded Sex Assigned at Not on file Legal Sex Male 8:18 AM CDT Gender Identity Not on file Sexual Orientation Not on file documented as of this encounter Plan of Treatment Not on file documented as of this encounter Visit Diagnoses Not on filedocumented in this encounter Care Teams Insole And Outsole Splitter Relationship Specialty Start Date End Date Dickson Land MD [address] [facility] [address] [facility] [address] [place] [address] PCP - General Family Medicine 01/27/19 Dionicio Carrasquillo MD [address] [facility] [address] [place] [address] Surgeon Surgery 03/05/23 documented as of this encounter
--- OUTSIDE RECORDS SUMMARY | 2024-09-29 10:50 | XMS_ITS | Encounter Summary ---
Author Organization [facility] Healthcare Address [address] [place] [address] Care Team Providers Care Senior Sql Database Developer Name Role Phone Dickson Land MD Primary Care Provider Dionicio Carrasquillo MD Unavailable [phone] Encounter Details Date Type Department Care Team (Late st Contact Info) Description 07/03/2023 Telephone [facility] [address] [facility] [address] [place] [address] Lance Carrasquillo MD [address] [place] [address] [address] [place] [address] Social History Tobacco Use Types Packs/Day Years [...] more drinks on one occasion? Never 03/05/2023 Sex and Gender Information Value Date Recorded Sex Assigned at Not on file Legal Sex Male 8:18 AM CDT Gender Identity Not on file Sexual Orientation Not on file documented as of this encounter Plan of Treatment Not on file documented as of this encounter Visit Diagnoses Not on filedocumented in this encounter Care Teams Senior Sql Database Developer Relationship Specialty Start Date End Date Dickson Land MD [address] [facility] [address] [facility] [address] [place] [address] PCP - General Family Medicine 01/27/19 Dionicio Carrasquillo MD [address] [facility] [address] [place] [address] Surgeon Surgery 03/05/23 documented as of this encounter
--- OUTSIDE RECORDS SUMMARY | 2024-09-29 10:50 | XMS_ITS | Encounter Summary ---
Author Organization [facility] Healthcare Address [address] [place] [address] Care Team Providers Care Chief Architect Name Role Phone Dickson Land MD Primary Care Provider Dionicio Carrasquillo MD Unavailable [phone] Encounter Details Date Type Department Care Team (Late st Contact Info) Description 12/08/2023 Telephone [facility] [address] [facility] [address] [place] [address] Dionicio Carrasquillo MD [address] [place] [address] Social History Tobacco Use Types Packs/Day Years [...] making you feel afraid or unsafe? Denies 08/28/2023 Sex and Gender Information Value Date Recorded Sex Assigned at Not on file Legal Sex Male 8:18 AM CDT Gender Identity Not on file Sexual Orientation Not on file documented as of this encounter Plan of Treatment Not on file documented as of this encounter Visit Diagnoses Not on filedocumented in this encounter Care Teams Chief Architect Relationship Specialty Start Date End Date Dickson Land MD [address] [facility] [address] [facility] [address] [place] [address] PCP - General Family Medicine 01/27/19 Dionicio Carrasquillo MD [address] [facility] [address] [place] [address] Surgeon Surgery 03/05/23 documented as of this encounter
--- OUTSIDE RECORDS SUMMARY | 2024-09-29 10:50 | XMS_ITS | Encounter Summary ---
Author Organization [facility] Healthcare Address [address] [place] [address] Care Team Providers Care Net Front End Developer Name Role Phone Dickson Land MD Primary Care Provider Dionicio Carrasquillo MD Unavailable [phone] Encounter Details Date Type Department Care Team (Late st Contact Info) Description 02/06/2024 Orders Only [facility] Health Information Management [address] [place] [id number] Scanning, Provider Social History Tobacco Use Types Packs/Day Years [...] making you feel afraid or unsafe? Denies 12/15/2023 Sex and Gender Information Value Date Recorded Sex Assigned at Not on file Legal Sex Male 8:18 AM CDT Gender Identity Not on file Sexual Orientation Not on file documented as of this encounter Plan of Treatment Not on file documented as of this encounter Procedures Procedure Name Priority Date/Time Associated Diagnosis Comments SCAN - RADIOLOGY/IMAGING 02/06/2024 SCAN - LABS 02/05/2024 documented in this encounter Results * SCAN - RADIOLOGY/IMAGING (02/06/2024) Anatomical Region Laterality Modality Other us Provider Scanning Final Result * SCAN - LABS (02/05/2024) us Provider Scanning Final Result documented in this encounter Visit Diagnoses Not on filedocumented in this encounter Care Teams Net Front End Developer Relationship Specialty Start Date End Date Dickson Land MD [address] [facility] [address] [place] [address] PCP - General Family Medicine 01/27/19 Dionicio Carrasquillo MD [address] [facility] [address] [place] [address] Surgeon Surgery 03/05/23 documented as of this encounter
--- OUTSIDE RECORDS SUMMARY | 2024-09-29 10:50 | XMS_ITS | Encounter Summary ---
Author Organization [facility] Healthcare Address [address] [place] [address] Care Team Providers Care Lasting Room Supervisor Name Role Phone Dickson Land MD Primary Care Provider Dionicio Carrasquillo MD Unavailable [phone] Encounter Details Date Type Department Care Team (Late st Contact Info) Description 04/06/2024 Telephone [facility] at [facility] [address] [facility] [address] [place], [place] [id number] Dionicio Carrasquillo MD [address] [place] [address] Social History Tobacco Use Types Packs/Day Years [...] on filedocumented in this encounter Care Teams Lasting Room Supervisor Relationship Specialty Start Date End Date Dickson Land MD [address] [facility] [address] [facility] 120 [place] [address] PCP - General Family Medicine 01/27/19 Dionicio Carrasquillo MD [address] [facility] [address] [place] [address] Surgeon Surgery 03/05/23 documented as of this encounter
--- OUTSIDE RECORDS SUMMARY | 2024-09-29 10:50 | XMS_ITS | Encounter Summary ---
Author Organization [facility] Healthcare Address [address] [place] [address] Care Team Providers Care Medical Scheduler Name Role Phone Dickson Land MD Primary Care Provider Dionicio Carrasquillo MD Unavailable [phone] Encounter Details Date Type Department Care Team (Late st Contact Info) Description 02/04/2023 Telephone [facility] Medical Office Building [address] [address] Dionicio Carrasquillo MD [address] [place] [address] Social History Tobacco Use Types Packs/Day Years Used Date Smoking Tobacco: Never Passive Smoke Exposure: Past Smokeless Tobacco: Never Alcohol Use Standard Drinks/Week Comments Yes 0 (1 standard drink = 0.6 oz pur e alcohol) rare AUDIT-C Answer Date Recorded Q1: How often do you have a drink containing alc ohol? Monthly or less 01/29/2023 Q2: How many drinks containi ng alcohol do you have on a typical day when you are drinking? 1 or 2 01/29/2023 Q3: How often do you have si x or more drinks on one occasion? Never 01/29/2023 Sex and Gender Information Value Date Recorded Sex Assigned at Not on file Legal Sex Male 8:18 AM CDT Gender Identity Not on file Sexual Orientation Not on file documented as of this encounter Plan of Treatment Not on file documented as of this encounter Visit Diagnoses Not on filedocumented in this encounter Care Teams Medical Scheduler Relationship Specialty Start Date End Date Dickson Land MD [address] [facility] [address] [facility] 120 [place] [address] PCP - General Family Medicine 01/27/19 Dionicio Carrasquillo MD [address] [facility] [address] [place] [address] Surgeon Surgery 03/05/23 documented as of this encounter
--- NOTE | ~2024-09-30 | US_ITS ---
EXAMINATION: US paracentesis abd w/image DATE: 09/30/2024 12:22 INDICATION: Ascites. TECHNIQUE: The procedure and its risks, benefits, and alternatives were discussed with the patient. P otential risks discussed included bleeding and infection. The skin was prepped and draped in sterile fashion. 1% lidocaine was used for local anesthesia. Under ultrasound guidance, a 5 Fr catheter with trochar was advanced into the ascites in the left lower quadrant. Fluid was aspirated. The catheter w as removed, and a dressing was applied. There were no immediate complications. FINDINGS: Ultrasound images demonstrate ascites and the catheter within the fluid. IMPRESSION: 1. Successful ultrasound-guided paracentesis yielding 4600 mL of turbid, hurd fluid. Reviewed, dictated and finalized at location A. OR MAID IMPRESSION: 1. Successful ultrasound-guided paracentesis yielding 4600 mL of turbid, hurd f luid.
--- OUTSIDE RECORDS SUMMARY | 2024-09-30 11:53 | XMS_ITS | Clinical Summary ---
Author Organization 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 Assessment & Plan (09/15/2023 3:15 PM FIELD SERVICE REPRESENTATIVE): Impression: Patient is being dialyzed through a [...] dialysis. Assessment & Plan (08/11/2023 1:31 PM FIELD SERVICE REPRESENTATIVE): Dialyzing through a right brachiocephalic fistula. 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 He denies any [...] (valve) stenosis 04/22/2022 PAF (paroxysmal atrial fibrillation) ([facility]) 0 03/10/2022 Assessment & Plan (08/11/2023 1:32 PM FIELD SERVICE REPRESENTATIVE): Chronic controlled. Continue amiodarone Dizziness 01/27/2022 Sensorineural hearing loss (SNHL) of both ears 0 12/03/2021 Bilateral lower extremity edema 07/26/2021 Essential hypertension 04/09/2021 Assessment & Plan (09/13/2024 9:32 AM FIELD SERVICE REPRESENTATIVE): Patient's blood pressure is now mostly labile and hypotensive. Continue midodrine as per his physician. Assessment & Plan (2024 10:49 AM CDT): Continue antihypertensives Assessment & Plan (09/15/2023 3:16 PM FIELD SERVICE REPRESENTATIVE): Impression: Chronic and stable. Plan: Continue metoprolol Assessment & Plan (08/11/2023 1:24 PM FIELD SERVICE REPRESENTATIVE): metoprolol Hyperlipidemia LDL goal <70 04/09/2021 Assessment & Plan (09/13/2024 9:31 AM FIELD SERVICE REPRESENTATIVE): Controlled. Continue Lipitor Assessment & Plan (2024 10:49 AM CDT): Continue Lipitor Assessment & Plan (09/15/2023 3:16 PM FIELD SERVICE REPRESENTATIVE): Impression: Chronic stable. 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 04/09/2021 Bilateral impacted cerumen 03/05/2021 Chronic eczematous otitis externa of left ear Erectile dysfunction 02/17/2019 Overview (02/17/2019): Added automatically from request for surgery [id number] Resolved Problems Problem Noted Date Diagnosed Date Resolved Date CKD (chronic kidney disease) stage 4, GFR 15-29 ml/min (CMS/HCC) 07/26/2021 09/15/2023 Class 2 obesity due to exces s calories without serious comorbidity with body mass index (BMI) of 36.0 to 36.9 in adult 04/09/2021 Urologic disorder 04/04/2019 04/04/2019 Encounters Date Type Department Care Team Description 09/20/2024 11:30 AM FIELD SERVICE REPRESENTATIVE Office Visit [facility] [address], [address] [place] [address] Ravi Palm II, MD Sensorineural hearing loss (SNHL) of both ears (Primary Dx); Bilateral impacted cerumen 09/19/2024 Telephone [facility] at [facility] [address] [place] [address] [address] [place] [address] Malka Woo NP Updating medication list 09/13/2024 7:50 AM FIELD SERVICE REPRESENTATIVE - 09/13/2024 11:59 PM FIELD SERVICE REPRESENTATIVE Hospital Encounter [facility] Medical Office Building 2 Vascular [address] [facility] [address] [place] [address] ESRD (end stage renal disease) on dialysis (HCC); Other complication of arteriovenous dialysis fistula, initial encounter ([facility]) Discharge Disposition: Discharge to home or self care 09/13/2024 7:50 AM FIELD SERVICE REPRESENTATIVE - 09/13/2024 11:59 PM FIELD SERVICE REPRESENTATIVE Hospital Encounter [facility] Dialysis Access Center at [facility] [address] [facility] [address] [place] [address] ESRD (end stage renal disease) on dialysis (HCC) (Primary Dx); Other complication of arteriovenous dialysis fistula, initial encounter ([facility]); Hyperlipidemia LDL goal <70; Essential hypertension Discharge Disposition: Discharge to home or self care 08/31/2024 1:30 PM FIELD SERVICE REPRESENTATIVE Office Visit [facility] Card[facility] [address] [place] [address] Angel Chow MD PAF (paroxysmal atrial fibrillation) (CMS/HCC) (HCC) (Primary Dx); Nonrheumatic aortic (valve) stenosis; Hyperlipidemia LDL goal <70; Essential hypertension; Coronary artery disease of confederated 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 (HCC); Nonrheumatic mitral valve regurgitation; Cardiomyopathy, unspecified type (HCC) 08/11/2024 Orders Only [facility] [phone] Unknown, Notinfile 07/26/2024 8:30 AM FIELD SERVICE REPRESENTATIVE Office Visit [facility] Cardiology [address] [place] [address] Sonia Jacobs NP Coronary artery disease involving confederated goshute coronary artery of confederated goshute heart without angina pectoris (Primary Dx); PAF [...] Erectile dysfunction Gout DVT (deep venous thrombosis) ([facility]) ([facility]) 1993 CAD (coronary artery disease) ED (erectile dysfunction) CKD (chronic kidney disease) SD, old PONV (postoperative nausea and vomiting) Allergic rhinitis Heart attack ([facility]) 2010 Hyperlipidemia Cancer ([facility]) ([facility]) kidney Obesity Bruises easily Hemodialysis patient ([facility]) ([facility]) perma cath right chest, MWF [facility] Ear problems Family History Medical History Relation [...] Comments Blood Pressure 78/56 09/13/2024 8:39 AM FIELD SERVICE REPRESENTATIVE Asymptomatic: states BP has been running on low side, denies any symptoms at this time. Pulse 60 09/13/2024 8:39 AM FIELD SERVICE REPRESENTATIVE Temperature 36.7 C (98 F) 09/20/2024 12:22 PM FIELD SERVICE REPRESENTATIVE Respiratory Rate 22 04/12/2024 10:3 0 AM CDT Oxygen Saturation 100% 09/13/2024 8:3 9 AM FIELD SERVICE REPRESENTATIVE Inhaled Oxygen Concentration - - Weight 95.3 kg (210 lb) 09/20/2024 12:2 2 PM FIELD SERVICE REPRESENTATIVE Height 188 cm (6' 2 ) 09/20/2024 12:22 PM FIELD SERVICE REPRESENTATIVE Body Mass Index 26.96 09/20/2024 12:22 PM FIELD SERVICE REPRESENTATIVE Plan of Treatment Health Maintenance Due Date Last Done Comments Depression Screening 1940 Hepatitis B Screening 1959 Well Visit 65+ 2006 Influenza Vaccine (#1) 2024 , 05/31/2019, 05/25/2018, Additional history exists Fall Risk Assessment 04/12/2025 04/12/2024 DTaP/Tdap/Td Vaccine (2 - Td or Tdap) 12/02/2028 12/02/2018 Zoster Vaccine Completed 08/23/2018, 05/25/2018 Pneumococcal vaccine 65+ Completed 12/02/2018, 01/2016 Medical Devices Implanted Type Area Resolution Specialist Device Identifier Shelf Expiration Date Model / Serial / Lot Coloplast Lux [id number] Titan Lock-Out Inflatable Self Contain Fluid Fill Tube Standard Latex Free - Sn/A - [id number] Implanted:Qty: 1 on 03/18/2019 by Angel Kiran MD at [facility] Other - see comments N/A: Penis Coloplast Lux 09/20/2023 [id number] / N/A / [id number] Description:PENIAL PROSTHESI S Coloplast Lux [id number] Titan Coloplast Lock-Out Inflatable Self Contain Fluid Fill Valve Latex Free - Sn/A - [id number] Implanted:Qty: 1 on 03/18/2019 by Angel Kiran MD at [facility] Other - see comments N/A: Penis Coloplast Lux 10/07/2023 [id number] / N/A / [id number] Description:PENILE PROSTHESI S Coloplast Lux [id number] Pros 0d Cyl 20cm Penile Ttn Otr Scrotum - Sn/A - [id number] Implanted:Qty: 1 on 03/18/2019 by Angel Kiran MD at [facility] Other - see comments N/A: Penis Coloplast Lux 11/29/2023 [id number] / N/A / [id number] Description:PENILE PROSTHESI S Stent Heart Description:x2 Procedures Procedure Name Priority Date/Time Associated Diagnosis Comments US HEMODIALYSIS ACCESS Schedule Routine, Read Routine (OP Routine) 09/13/2024 8:32 AM FIELD SERVICE REPRESENTATIVE ESRD (end stage renal disease) on dialysis (HCC) Other complication of arteriovenous dialysis fistula, initial encounter ([facility]) PREALBUMIN Routine 08/11/2024 5:30 AM FIELD SERVICE REPRESENTATIVE DIFFERENTIAL AUTO Routine 08/11/2024 5:3 0 AM FIELD SERVICE REPRESENTATIVE CBC WITH AUTO DIFFERENTIAL Routine 08/11/2024 5:30 AM FIELD SERVICE REPRESENTATIVE EGFR Routine 08/11/2024 5:30 AM FIELD SERVICE REPRESENTATIVE COMPREHENSIVE METABOLIC PANEL Routine 08/11/2024 5:30 AM FIELD SERVICE REPRESENTATIVE MAGNESIUM Routine 08/11/2024 5:30 AM FIELD SERVICE REPRESENTATIVE PHOSPHORUS Routine 08/11/2024 5:30 AM FIELD SERVICE REPRESENTATIVE POCT LIPID PANEL Routine 07/26/2024 8:43 AM FIELD SERVICE REPRESENTATIVE Coronary artery disease involving confederated goshute coronary artery of confederated goshute heart without angina pectoris from Last 3 Months Results * US Hemodialysis Access (09/13/2024 8:32 AM FIELD SERVICE REPRESENTATIVE) Anatomical Region Laterality Modality Vascular N/A Ultrasound 09/13/2024 Narrative 09/16/2024 8:16 AM FIELD SERVICE REPRESENTATIVE Amphion Job ID: [id number] Amphion Document ID: [id number] Dictated date/time: [id number] RIGHT UPPER EXTREMITY HEMODIALYSIS DUPLEX REASON FOR [...] suggestive of stenosis. Job ID/Internal Job ID: [id number] Lance Carrasquillo MD [facility] US PROCEDURES Final Result * (ABNORMAL) eGFR (08/11/2024 5:30 AM FIELD SERVICE REPRESENTATIVE) eGFR 7(L) >=60 mL/min/1. 73 m2 SARAH [...] was last reviewed 2021. Testing performed by: [facility], [address] [place] [address]., [id number] Blood 08/11/2024 5:30 AM FIELD SERVICE REPRESENTATIVE 08/11/2024 9:09 AM FIELD SERVICE REPRESENTATIVE us Notinfile Unknown LAB BLOOD ORDERABLES Final Res ult SARAH [address] [facility] Department [place] [address] * (ABNORMAL) Differential, auto (08/11/2024 5:30 AM FIELD SERVICE REPRESENTATIVE) Neutrophil abs 6.4 1.5 - 6.5 K/cumm SARAH Comment:Testing performed by : [address] [address] Imm gran abs 0.1 0.0 - 0.1 K/cumm SARAH Comment:Testing performed by : [address] [address] Lymphocyte abs 0.6(L) 0.8 - 3.3 K/cumm SARAH Comment:Testing performed by : [address] [address] Monocyte abs 0.9(H) 0.2 - 0.8 K/cumm SARAH Comment:Testing performed by : [address] [address] Eosinophil abs 0.1 0.0 - 0.5 K/cumm SARAH Comment:Testing performed by : [address] [address] Basophil abs 0.1 0.0 - 0.1 K/cumm SARAH Comment:Testing performed by : [address] [address] Neutrophil pct 78.5 % SARAH Comment: Interpretive Data Percent cell count reference ranges are not reported, since discordance with absolute values may lead to misinterpretation of CBC data. Current Interpretive Data was last revised on 2017. Testing performed by: [address] [address] Imm gran pct 0.7 % SARAH Comment: Interpretive Data Percent cell count reference ranges are not reported, since discordance with absolute values may lead to misinterpretation of CBC data. Current Interpretive Data was last revised on 2017. Testing performed by: [address] [address] Lymphocyte pct 7.5 % SARAH Comment: Interpretive Data Percent cell count reference ranges are not reported, since discordance with absolute values may lead to misinterpretation of CBC data. Current Interpretive Data was last revised on 2017. Testing performed by: [address] [address] Monocyte pct 11.5 % SARAH Comment: Interpretive Data Percent cell count reference ranges are not reported, since discordance with absolute values may lead to misinterpretation of CBC data. Current Interpretive Data was last revised on 2017. Testing performed by: [address] [address] Eosinophil pct 1.2 % SARAH Comment: Interpretive Data Percent cell count reference ranges are not reported, since discordance with absolute values may lead to misinterpretation of CBC data. Current Interpretive Data was last revised on 2017. Testing performed by: [address] [address] Basophil pct 0.6 % SARAH Comment: Interpretive Data Percent cell count reference ranges are not reported, since discordance with absolute values may lead to misinterpretation of CBC data. Current Interpretive Data was last revised on 2017. Testing performed by: [address] [address] Blood 08/11/2024 5:30 AM FIELD SERVICE REPRESENTATIVE 08/11/2024 9:09 AM FIELD SERVICE REPRESENTATIVE us Notinfile Unknown LAB BLOOD ORDERABLES Final Res ult SARAH CAPPS [address] [facility] Department [place] [address] * (ABNORMAL) CBC with auto differential (08/11/2024 5:30 AM FIELD SERVICE REPRESENTATIVE) WBC 8.1 3.8 - 9.9 K/cumm SARAH CAPPS Comment:Testing performed by : [address] [address] Hgb 10.8(L) 13.0 - 17.5 g/dL SARAH Comment:Testing performed by : [address] [address] Hct 31.5(L) 38.9 - 50.3 % SARAH Comment:Testing performed by : [address] [address] Plt 295 150 - 400 K/cumm SARAH Comment:Testing performed by : [address], [address] MPV 10.9 9.1 - 12.3 fL SARAH Comment:Testing performed by : [address], [address] RBC 3.06(L) 4.30 - 5.80 M/cumm SARAH Comment:Testing performed by : [address], [address] MCV 102.9(H) 81.3 - 96.4 fL SARAH Comment:Testing performed by : [address] [address] MCH 35.3(H) 27.1 - 33.3 pg SARAH Comment:Testing performed by : [address] [address] MCHC 34.3 32.3 - 35.7 g/dL SARAH Comment:Testing performed by : [address], [address] RDW CV 14.6 11.1 - 14.9 % SARAH Comment:Testing performed by : [address], [address] RDW SD 52.8(H) 35.7 - 48.1 fL SARAH Comment:Testing performed by : [address] [address] NRBC abs 0.00 0.00 - 0.01 K/cumm SARAH Comment:Testing performed by : [address], [address] Blood 08/11/2024 5:30 AM FIELD SERVICE REPRESENTATIVE 08/11/2024 9:09 AM FIELD SERVICE REPRESENTATIVE us Notinfile Unknown LAB BLOOD ORDERABLES Final Res ult Performing Organization Address [facility] Co de Phone Number [id number] [employer] [address] * (ABNORMAL) Prealbumin (08/11/2024 5:30 AM FIELD SERVICE REPRESENTATIVE) Prealbumin 13.6(L) 20.0 - 40.0 mg/dL SARAH Blood 08/11/2024 5:30 AM FIELD SERVICE REPRESENTATIVE 08/11/2024 11:07 AM FIELD SERVICE REPRESENTATIVE us Notinfile Unknown LAB BLOOD ORDERABLES Final Res ult Performing Organization Address [facility] de Phone Number [address] [address] * (ABNORMAL) Phosphorus (08/11/2024 5:30 AM FIELD SERVICE REPRESENTATIVE) Phosphorus, pl 5.8(H) 2.3 - 4.5 mg/dL SARAH Comment:Testing performed by : [address] [address] Blood 08/11/2024 5:30 AM FIELD SERVICE REPRESENTATIVE 08/11/2024 9:09 AM FIELD SERVICE REPRESENTATIVE us Notinfile Unknown LAB BLOOD ORDERABLES Final Res ult Performing Organization Address [facility] de Phone Number [address] [address] * Magnesium (08/11/2024 5:30 AM FIELD SERVICE REPRESENTATIVE) Magnesium 2.4 1.4 - 2.5 mg/dL SARAH Comment:Testing performed by : [address] [address] Blood 08/11/2024 5:30 AM FIELD SERVICE REPRESENTATIVE 08/11/2024 9:09 AM FIELD SERVICE REPRESENTATIVE us Notinfile Unknown LAB BLOOD ORDERABLES Final Res ult SARAH [address] [facility] Department [place] [address] * (ABNORMAL) Comprehensive metabolic panel (08/11/2024 5:30 AM FIELD SERVICE REPRESENTATIVE) Sodium 136 135 - 145 mmol/L SARAH Comment:Testing performed by : [address] [address] Potassium, pl 4.9 3.3 - 4.9 mmol/L SARAH Comment:Testing performed by : [address] [address] Chloride 96(L) 97 - 110 mmol/L SARAH Comment:Testing performed by : [address] [address] CO2 23 22 - 32 mmol/L SARAH Comment:Testing performed by : [address] [address] Anion gap 17(H) 2 - 15 mmol/L SARAH Comment:Testing performed by : [address] [address] BUN 60(H) 6 - 25 mg/dL SARAH Comment:Testing performed by : [address] [address] Creatinine 6.80(H) 0.80 - 1.30 mg/dL SARAH Comment:Testing performed by : [address] [address] Glucose 92 70 - 199 mg/dL SARAH [...] was last revised 2022. Testing performed by: [address] [address] Calcium 10.8(H) 8.5 - 10.3 mg/dL SARAH Comment:Testing performed by : [address] [address] Bilirubin, total 1.4(H) 0.1 - 1.2 mg/dL SARAH Comment:Testing performed by : [address] [address] Protein, pl 6.4(L) 6.5 - 8.5 g/dL SARAH Comment:Testing performed by : [address] [address] Albumin 3.9 3.5 - 5.0 g/dL SARAH Comment:Testing performed by : [address] [address] Alk phos 196(H) 40 - 130 Units/L SARAH Comment:Testing performed by : [address] [address] ALT 15 7 - 55 Units/L SARAH Comment:Testing performed by : [address] [address] AST 9(L) 10 - 50 Units/L SARAH Comment:Testing performed by : [address] [address] Blood 08/11/2024 5:30 AM FIELD SERVICE REPRESENTATIVE 08/11/2024 9:09 AM FIELD SERVICE REPRESENTATIVE us Notinfile Unknown LAB BLOOD ORDERABLES Final Res ult SARAH CAPPS [address] [facility] Department [place] [address] * POCT lipid panel (07/26/2024 8:43 AM FIELD SERVICE REPRESENTATIVE) Cholesterol, POC 100 mg/dL HDL, POC 30 mg/dL Triglycerides, POC 50 mg/dL LDL Cholesterol POC 58 mg/dL Chol/HDL Ratio, POC - Non-HDL Cholesterol, POC - mg/dL Cholesterol Total, POC 100 mg/dL Capillary blood 07/26/2024 8 :43 AM FIELD SERVICE REPRESENTATIVE Sonia Jacobs NP POINT OF CARE TEST ORDERA BLES Final Result from Last 3 Months Insurance MEDICARE [facility] MEDICARE [facility] MEDICARE [facility] Advance Directives For more information, please contact: [phone] * Full Code (Latest Code Status on File) Date Activated Date Inactivated Comments 03/18/2019 2:27 PM 03/19/2019 6:43 PM Care Teams Apprenticeship Training Representative Relationship Specialty Start Date End Date Dickson Land MD [address] [address] PCP - General Family Medicine 01/27/19 Dionicio Carrasquillo MD [address] [facility] [address] [address] Surgeon Surgery 03/05/23
--- OUTSIDE RECORDS SUMMARY | 2024-09-30 11:53 | XMS_ITS | Clinical Summary ---
Author Organization [facility] utirad[facility] Address [address] [place] [id number] Phone Care Team Providers Care Restoration Officer Name Role Phone Dickson Land MD Primary Care Provider [phone] Allergies No known active allergies Medications Medication [...] (01/28/2021): Added automatically from request for surgery [id number] Immunizations Name Administration Dates Next Due Sars-cov-2, [...] (#1) 2024 9, 05/25/2018, 08/07/2016 Care Teams Restoration Officer Relationship Specialty Start Date End Date Dickson Land MD [address] [facility] [address] [facility] [address] [place] [address] PCP - General Internal Medicine 12/28/20
--- OUTSIDE RECORDS SUMMARY | 2024-09-30 11:53 | XMS_ITS ---
Author Organization [facility] Address [address] [address] Care Team Providers Care Hod Carrier Name Role Phone EmeryDickson Primary Care Provider WASHINGTON Li Unavailable [phone] ALLERGIES No Known Allergies MEDICATIONS Medication SIG (Take, Route, Frequency, Duration) Notes Start Date End Date Status Lactulose 10 GM/15ML TAKE 30ML(2 TABLESPOONSFUL) BY MOUTH TWICE DAILY FOR CONSTIPATION Oral for 31 Days Active Atorvastatin Calcium 20 MG TAKE 1 TABLET BY MOUTH ONCE DAILY Oral for 90 Days Active Gabapentin 300 MG TAKE 1 CAPSULE BY MO UTH IN THE MORNING Oral for 90 Days Active Midodrine HCl 10 MG Oral for 30 Days Active Amiodarone HCl 200 MG TAKE 1 TABLET BY M OUTH TWICE DAILY Oral for 30 Days Active Eliquis 5 MG TAKE 1 TABLET BY STEPHANIE TH TWICE DAILY Oral for 90 Days Active Allopurinol 300 MG Oral for 31 Days Active PROBLEMS Problem Type ICD Code Onset Dates Problem Status W/U Status Risk SNOMED Code Notes Problem Cirrhosis of liver (K74.60) Active confirmed Cirrhosis of liver (00256257) VITAL SIGNS Blood pressure systolic 86 mm Hg 09/20/19 25 Blood pressure diastolic 56 mm Hg 025 Temperature 97.3 degrees Fahrenheit 09/20/19 25 Oximetry 94 % 09/20/2024 Heart Rate 80 /min 09/20/2024 Respiratory Rate 20 /min 09/20/2024 Encounters Encounter Location Date Provider Diagnosis [facility] [address] [place] [address] 09/20/2024 WASHINGTON KENNY 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, or end stage renal disease I13.2 ; Biventricular heart failure I50.82 ; Edema, peripheral R60.9 and Cirrhosis of liver K74.60 ASSESSMENTS Encounter Date Diagnosis Assessment Notes Treatment Notes Treatment Clinical Notes Section Notes 09/20/2024 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, or end stage renal disease (ICD-10 - I13.2) 09/20/2024 Biventricular heart failure (ICD-10 - I50.82) Continue medications as ordered Follow up with cardiology as scheduled 09/20/2024 Edema, peripheral (ICD-10 - R60.9) Continue to wear compression socks Watch salt in diet Keep feet/legs elevated when sitting 09/20/2024 Cirrhosis of liver (ICD-10 - K74.60) Continue follow up with GI PLAN OF TREATMENT Treatment Notes Assessment Notes Biventricular heart failure Continue medications as ordered Follow up with cardiology as scheduled Edema, peripheral Continue to wear compression socks Watch salt in diet Keep feet/legs elevated when sitting Cirrhosis of liver Continue follow up w ith GI Next Appt Details Follow Up: 4 Weeks, Reason: Heart and renal failure Provider Name:Guadalupe CORTES 10/18/2024 09:45:00 AM, [address], [address], [place], [address], Progress Notes * ARMEN CUNNINGHAMDOB:[birth year] (84 yo M)Acc No.[id number]:09/20/2024 Progress Notes Patient: ARMEN CUNNINGHAM Provider: WASHINGTON KENNY APN :1940 Age:84 Y Sex:Male Date:09/20/2024 Address:[address] [place], [place] [id number] Pcp:Dickson Land Subjective: * Chief Complaints: * * HPI: Depression Screening: PHQ-2 (2015 Edition) Little interest or pleasure in doing things? Not at all, Feeling down, depressed, or hopeless? Not at all, Total Score 0. Palliative Care: New Patient Patient seen in his home for admission to palliative care. He is accompanied by his significant other, daughter and son. He is relaxing in recliner during visit in no visible distress. B iventricular heart disease: reports 25% ejections fraction. Under the care of cardiology. He is not a candidate for surgery. E nd stage renal disease:He only has his right kidney as his left one was removed in 2020 due to renal carcinoma. He has a right arm fistula and receives hemodialysis 3 times per week. L iver cirrhosis: non alcohol related. Ascites: gets a paracentesis every 3 weeks with removal of about 4-5 liters. P eripheral edema:chronic issue. Unable to get compression socks on so he uses non medical compression socks with a looser top and compression wraps. He has not had them on today. H dakota is in good spirits. He feels that he has a great treatment plan. D iscussed palliative care services vs hospice. He is not a candidate for hospice at this time. . * ROS: General/Constitutional: Patient Denies, change in appetite, chills, fatigue, fever, headache, night sweats. Function Ambulatory, uses walker for long distances. Change in appetite negative. Fever negative. Headache negative. ENT: Patient Denies, difficulty swallowing, sore throat. Respiratory: Patient Denies, chest pain, chronic cough, shortness of breath, wheezing. Cardiovascular: Patient Denies, chest pain, dizziness, weight gain. Gastrointestinal: Admits Constipation. Genitourinary: Patient Denies, painful urination. Musculoskeletal: Patient Endorses, arthritis. * Medical History: * Surgical History: No Surgical History documented. * Hospitalization/Major Diagno stic Procedure: No Hospitalization History. * Medications: TakingAmiodarone HCl 200 MG Tablet TAKE 1 TABLET BY MOUTH TWICE DAILY Oral Midodrine HCl 10 MG Tablet Oral Atorvastatin Calcium 20 MG Tablet TAKE 1 TABLET BY MOUTH ONCE DAILY Oral Lactulose 10 GM/15ML Solution TAKE 30ML(2 TABLESPOONSFUL) BY MOUTH TWICE DAILY FOR CONSTIPATION Oral Gabapentin 300 MG Capsule TAKE 1 CAPSULE BY MOUTH IN THE MORNING Oral Allopurinol 300 MG Tablet Oral Eliquis 5 MG Tablet TAKE 1 TABLET BY MOUTH TWICE DAILY Oral Medication List reviewed and reconciled with the patientTaking Amiodarone HCl 200 MG Tablet TAKE 1 TABLET BY MOUTH TWICE DAILY Oral Taking Midodrine HCl 10 MG Tablet Oral Taking Atorvastatin Calcium 20 MG Tablet TAKE 1 TABLET BY MOUTH ONCE DAILY Oral Taking Lactulose 10 GM/15ML Solution TAKE 30ML(2 TABLESPOONSFUL) BY MOUTH TWICE DAILY FOR CONSTIPATION Oral Taking Gabapentin 300 MG Capsule TAKE 1 CAPSULE BY MOUTH IN THE MORNING Oral Taking Allopurinol 300 MG Tablet Oral Taking Eliquis 5 MG Tablet TAKE 1 TABLET BY MOUTH TWICE DAILY Oral Medication List reviewed and reconciled with the patient * Allergies: N.K.D.A.no[Allergies Verified] Objective: * Vitals: BP:86/56mm Hg, HR:80/min, RR:20/min, Temp:97.3F, Oxygen sat %:94%, PPS:70%, Pain scale:00-10, PX:>6. * Examination: General Examination: GENERAL APPEARANCE: alert, well hydrated, in no distress, pleasant, well nourished, calm and relaxed, cooperative. PSYCH: cognitive function intact, cooperative with exam, good eye contact. EYES: WNL. CV: Murmur noted that. RESP: WNL, clear to auscultation bilaterally, good air movement. GI: bowel sounds present, liver nontender. : Deferred. 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 SKIN: WNL. EXTREMITIES: 2+ pitting edema right leg and 1+ edema left leg . PERIPHERAL PULSES: Right arm fistula with strong bruit noted. Assessment: * Assessment: 1. 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, or end stage renal disease - I13.2 (Primary) 2. Biventricular heart failure - I50.82 3. Edema, peripheral - R60.9 4. Cirrhosis of liver - K74.60 Plan: * Treatment: 2. Edema, peripheral Notes: Continue to wear compression socks Watch salt in diet Keep feet/legs elevated when sitting 3. Cirrhosis of liver Notes: Continue follow up with GI * Procedure Codes: G8734 ELDER MALTX SCR DOC NEG NO F/U [id number] ACP DISCUSS/DSCN MKR DOCD * Preventive Medicine: Screenings: Falls Risk Screening: Two or more falls without injury in the past year. Elder Maltreatment . Pain Assessment Follow up Follow Up plan discussed No, Reason: Patient not eligible candidate Patient does not have pain. ADVANCED CARE PLANNING: An advanced care directive: has been finalized. DEPRESSION SCREENING: Date of most recent screenin09/20/2024, PHQ inventory: with score of 0-4,was completed today. TOBACCO USE SCREENING: The patient smoked: no tobacco products. * Follow Up: 4 Weeks (Reason: Heart and renal failure) Care Plan: * Problems: * Billing Information: * Visit Code: 19956 1st 30 mins Advance Care Planning. [address] Initial Home Care 5 (75 mins). * Procedure Codes: G8734 ELDER MALTX SCR DOC NEG NO F/U RQR. 1123F ACP DISCUSS/DSCN MKR DOCD. Care Plan Details* * Sign off status: Completed true * Provider: WASHINGTON KENNY APN Date: 09/20/2024 History and Physical Notes * HPI (History of Present Illness) Category Sub-Category Detail Notes Category Not es Palliative Care New Patient Patient seen in his home for admission to palliative care. He is accompanied by his significant other, daughter and son. He is relaxing in recliner during visit in no visible distress. Biventricular heart disease: reports 25% ejections fraction. Under the care of cardiology. He is not a candidate for surgery. End stage renal disease:He only has his right kidney as his left one was removed in 2020 due to renal carcinoma. He has a right arm fistula and receives hemodialysis 3 times per week. Liver cirrhosis: non alcohol related. Ascites: gets a paracentesis every 3 weeks with removal of about 4-5 liters. Peripheral edema:chronic issue. Unable to get compression socks on so he uses non medical compression socks with a looser top and compression wraps. He has not had them on today. He is in good spirits. He feels that he has a great treatment plan. Discussed palliative care services vs hospice. He is not a candidate for hospice at this time. Depression Screening PHQ-2 (2015 Edition) Little interest or pleasure in doing things?: Not at all Feeling down, depressed, or hopeless?: N ot at all Total Score: 0 Examination Category Sub-Category Detail Notes Category Not es General Examination GENERAL APPEARANCE: alert, w ell hydrated, in no distress, pleasant, well nourished, calm and relaxed, cooperative EYES: WNL CV: Murmur noted that RESP: WNL, clear to auscul tation bilaterally, good air movement GI: bowel sounds present , liver nontender SKIN: WNL EXTREMITIES: 2+ pitting edema rig ht leg and 1+ edema left leg PERIPHERAL PULSES: Right arm fistula wi th strong bruit noted MUSCULOSKELETAL: Left hip with protru sherron due to Paget's disease PSYCH: cognitive function i ntact, cooperative with exam, good eye contact : Deferred
--- OUTSIDE RECORDS SUMMARY | 2024-09-30 11:53 | XMS_ITS | Referral Summary ---
Author Organization [facility] Address [facility] [place] [address] Care Team Providers Care Correctional Officer Name Role Phone Dickson Land MD Primary Care Provider Dionicio Carrasquillo MD Unavailable [phone] Encounters Date Type Department Care Team Description 09/20/2024 11:30 AM REGIONAL SALES REPRESENTATIVE Office Visit [facility] Otolaryngology [address], [address] [place] [address] Ravi Palm II, MD Sensorineural hearing loss (SNHL) of both ears (Primary Dx); Bilateral impacted cerumen 09/19/2024 Telephone [facility] D[facility] at [facility] [address] [place] [address] Malka Woo NP Updating medication list 09/13/2024 7:50 AM REGIONAL SALES REPRESENTATIVE - 09/13/2024 11:59 PM REGIONAL SALES REPRESENTATIVE Hospital Encounter [facility] at [facility] [address] [place] [address] ESRD (end stage renal disease) on dialysis (HCC) (Primary Dx); Other complication of arteriovenous dialysis fistula, initial encounter (HCC); Hyperlipidemia LDL goal <70; Essential hypertension Discharge Disposition: Discharge to home or self care 09/13/2024 7:50 AM REGIONAL SALES REPRESENTATIVE - 09/13/2024 11:59 PM REGIONAL SALES REPRESENTATIVE Hospital Encounter [facility] Medical Office Building [address] [place] [address] ESRD (end stage renal disease) on dialysis (HCC); Other complication of arteriovenous dialysis fistula, initial encounter ([facility]) Discharge Disposition: Discharge to home or self care 08/31/2024 1:30 PM REGIONAL SALES REPRESENTATIVE Office Visit [facility] Cardiology [address] [place] [address] Angel Chow MD PAF (paroxysmal atrial fibrillation) (CMS/HCC) ([facility]) (Primary Dx); Nonrheumatic aortic (valve) stenosis; Hyperlipidemia LDL goal <70; Essential hypertension; 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); Nonrheumatic mitral valve regurgitation; Cardiomyopathy, unspecified type ([facility]) 08/11/2024 Orders Only [facility] [phone] Unknown, Notinfile 07/26/2024 8:30 AM REGIONAL SALES REPRESENTATIVE Office Visit [facility] Cardiology [address] [place] [address] Sonia Jacobs NP Coronary artery disease involving salt river coronary artery of salt river heart without angina pectoris (Primary Dx); PAF [...] 20 mg tabletIndicati ons: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 Assessment & Plan (09/15/2023 3:15 PM REGIONAL SALES REPRESENTATIVE): Impression: Patient is being dialyzed through [...] dialysis. Assessment & Plan (08/11/2023 1:31 PM REGIONAL SALES REPRESENTATIVE): Dialyzing through a right brachiocephalic fistula. 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 He denies any [...] 03/10/2022 Assessment & Plan (08/11/2023 1:32 PM REGIONAL SALES REPRESENTATIVE): Chronic controlled. Continue amiodarone Dizziness 01/27/2022 Sensorineural hearing loss (SNHL) of both ears 0 12/03/2021 Bilateral lower extremity edema 07/26/2021 Essential hypertension 04/09/2021 Assessment & Plan (09/13/2024 9:32 AM REGIONAL SALES REPRESENTATIVE): Patient's blood pressure is now mostly labile and hypotensive. Continue midodrine as per his physician. Assessment & Plan (2024 10:49 AM CDT): Continue antihypertensives Assessment & Plan (09/15/2023 3:16 PM REGIONAL SALES REPRESENTATIVE): Impression: Chronic and stable. Plan: Continue metoprolol Assessment & Plan (08/11/2023 1:24 PM REGIONAL SALES REPRESENTATIVE): metoprolol Hyperlipidemia LDL goal <70 04/09/2021 Assessment & Plan (09/13/2024 9:31 AM REGIONAL SALES REPRESENTATIVE): Controlled. Continue Lipitor Assessment & Plan (2024 10:49 AM CDT): Continue Lipitor Assessment & Plan (09/15/2023 3:16 PM REGIONAL SALES REPRESENTATIVE): Impression: Chronic stable. 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 Pulse 60 09/13/2024 8:39 AM REGIONAL SALES REPRESENTATIVE Temperature 36.7 C (98 F) 09/20/2024 12:22 PM REGIONAL SALES REPRESENTATIVE Respiratory Rate 22 04/12/2024 10:3 0 AM CDT Oxygen Saturation 100% 09/13/2024 8:3 9 AM REGIONAL SALES REPRESENTATIVE Inhaled Oxygen Concentration - - Weight 95.3 kg (210 lb) 09/20/2024 12:2 2 PM REGIONAL SALES REPRESENTATIVE Height 188 cm (6' 2 ) 09/20/2024 12:22 PM REGIONAL SALES REPRESENTATIVE Body Mass Index 26.96 09/20/2024 12:22 PM REGIONAL SALES REPRESENTATIVE Plan of Treatment Not on file Medical Devices Implanted Type Area Room Service Runner Device Identifier Shelf Expiration Date Model / Serial / Lot Coloplast Lux [id number] Titan Lock-Out Inflatable Self Contain Fluid Fill Tube Standard Latex Free - Sn/A - [id number] Implanted:Qty: 1 on 03/18/2019 by Angel Kiran MD at [facility] Other - see comments N/A: Penis Coloplast Lux 09/20/2023 [id number] / N/A / [id number] Description:PENIAL PROSTHESI S Coloplast Lux [id number] Titan Coloplast Lock-Out Inflatable Self Contain Fluid Fill Valve Latex Free - Sn/A - [id number] Implanted:Qty: 1 on 03/18/2019 by Angel Kiran MD at [facility] Other - see comments N/A: Penis Coloplast Lux 10/07/2023 [id number] / N/A / [id number] Description:PENILE PROSTHESI S Coloplast Lux [id number] Pros 0d Cyl 20cm Penile Ttn Otr Scrotum - Sn/A - [id number] Implanted:Qty: 1 on 03/18/2019 by Angel Kiran MD at [facility] Other - see comments N/A: Penis Coloplast Lux 11/29/2023 [id number] / N/A / [id number] Description:PENILE PROSTHESI S Stent Heart Description:x2 Procedures Procedure Name Priority Date/Time Associated Diagnosis Comments US HEMODIALYSIS ACCESS Schedule Routine, Read Routine (OP Routine) 09/13/2024 8:32 AM REGIONAL SALES REPRESENTATIVE ESRD (end stage renal disease) on dialysis (HCC) Other complication of arteriovenous dialysis fistula, initial encounter ([facility]) PREALBUMIN Routine 08/11/2024 5:30 AM REGIONAL SALES REPRESENTATIVE DIFFERENTIAL AUTO Routine 08/11/2024 5:3 0 AM REGIONAL SALES REPRESENTATIVE CBC WITH AUTO DIFFERENTIAL Routine 08/11/2024 5:30 AM REGIONAL SALES REPRESENTATIVE EGFR Routine 08/11/2024 5:30 AM REGIONAL SALES REPRESENTATIVE COMPREHENSIVE METABOLIC PANEL Routine 08/11/2024 5:30 AM REGIONAL SALES REPRESENTATIVE MAGNESIUM Routine 08/11/2024 5:30 AM REGIONAL SALES REPRESENTATIVE PHOSPHORUS Routine 08/11/2024 5:30 AM REGIONAL SALES REPRESENTATIVE POCT LIPID PANEL Routine 07/26/2024 8:43 AM REGIONAL SALES REPRESENTATIVE Coronary artery disease involving salt river coronary artery of salt river heart without angina pectoris from Last 3 Months Results * US Hemodialysis Access (09/13/2024 8:32 AM REGIONAL SALES REPRESENTATIVE) Anatomical Region Laterality Modality Vascular N/A Ultrasound 09/13/2024 Narrative 09/16/2024 8:16 AM REGIONAL SALES REPRESENTATIVE [employer] Job ID: [id number] Am[employer] Document ID: [id number] Dictated date/time: [id number] RIGHT UPPER EXTREMITY HEMODIALYSIS DUPLEX REASON FOR [...] suggestive of stenosis. Job ID/Internal Job ID: [id number] us Lance Carrasquillo MD IMG US PROCEDURES Final Result * (ABNORMAL) eGFR (08/11/2024 5:30 AM REGIONAL SALES REPRESENTATIVE) eGFR 7(L) >=60 mL/min/1. 73 m2 SARAH Comment: Interpretive Data Reference Interval Normal >/= [...] was last reviewed 2021. Testing performed by: [facility], [address] [place] [address]., [address] Blood 08/11/2024 5:30 AM REGIONAL SALES REPRESENTATIVE 08/11/2024 9:09 AM REGIONAL SALES REPRESENTATIVE us Notinfile Unknown LAB BLOOD ORDERABLES Final Res ult SARAH [address] [facility] Department [place] [address] * (ABNORMAL) Differential, auto (08/11/2024 5:30 AM REGIONAL SALES REPRESENTATIVE) Neutrophil abs 6.4 1.5 - 6.5 K/cumm SARAH Comment:Testing performed by : [address] [address] Imm gran abs 0.1 0.0 - 0.1 K/cumm SARAH Comment:Testing performed by : [address] [address] Lymphocyte abs 0.6(L) 0.8 - 3.3 K/cumm SARAH Comment:Testing performed by : [address] [address] Monocyte abs 0.9(H) 0.2 - 0.8 K/cumm SARAH Comment:Testing performed by : [address] [address] Eosinophil abs 0.1 0.0 - 0.5 K/cumm SARAH Comment:Testing performed by : [address] [address] Basophil abs 0.1 0.0 - 0.1 K/cumm SARAH Comment:Testing performed by : [address] [address] Neutrophil pct 78.5 % SARAH Comment: Interpretive Data Percent cell count reference ranges are not reported, since discordance with absolute values may lead to misinterpretation of CBC data. Current Interpretive Data was last revised on 2017. Testing performed by: [address] [address] Imm gran pct 0.7 % SARAH Comment: Interpretive Data Percent cell count reference ranges are not reported, since discordance with absolute values may lead to misinterpretation of CBC data. Current Interpretive Data was last revised on 2017. Testing performed by: [address] [address] Lymphocyte pct 7.5 % SARAH Comment: Interpretive Data Percent cell count reference ranges are not reported, since discordance with absolute values may lead to misinterpretation of CBC data. Current Interpretive Data was last revised on 2017. Testing performed by: [address] [address] Monocyte pct 11.5 % [facility] Comment: Interpretive Data Percent cell count reference ranges are not reported, since discordance with absolute values may lead to misinterpretation of CBC data. Current Interpretive Data was last revised on 2017. Testing performed by: [address] [address] Eosinophil pct 1.2 % [facility] Comment: Interpretive Data Percent cell count reference ranges are not reported, since discordance with absolute values may lead to misinterpretation of CBC data. Current Interpretive Data was last revised on 2017. Testing performed by: [address] [address] Basophil pct 0.6 % [facility] Comment: Interpretive Data Percent cell count reference ranges are not reported, since discordance with absolute values may lead to misinterpretation of CBC data. Current Interpretive Data was last revised on 2017. Testing performed by: [address] [address] Blood 08/11/2024 5:30 AM REGIONAL SALES REPRESENTATIVE 08/11/2024 9:09 AM REGIONAL SALES REPRESENTATIVE us Notinfile Unknown LAB BLOOD ORDERABLES Final Res ult [facility] [address] [facility] Department [place] [address] * (ABNORMAL) CBC with auto differential (08/11/2024 5:30 AM REGIONAL SALES REPRESENTATIVE) WBC 8.1 3.8 - 9.9 K/cumm SARAH Comment:Testing performed by : [address] [address] Hgb 10.8(L) 13.0 - 17.5 g/dL SARAH Comment:Testing performed by : [address], [address] Hct 31.5(L) 38.9 - 50.3 % SARAH Comment:Testing performed by : [address] [address] Plt 295 150 - 400 K/cumm SARAH Comment:Testing performed by : [address] [address] MPV 10.9 9.1 - 12.3 fL SARAH Comment:Testing performed by : [address], [address] RBC 3.06(L) 4.30 - 5.80 M/cumm SARAH Comment:Testing performed by : [address] [address] MCV 102.9(H) 81.3 - 96.4 fL SARAH Comment:Testing performed by : [address] [address] MCH 35.3(H) 27.1 - 33.3 pg SARAH Comment:Testing performed by : [address] [address] MCHC 34.3 32.3 - 35.7 g/dL SARAH Comment:Testing performed by : [address], [address] RDW CV 14.6 11.1 - 14.9 % SARAH Comment:Testing performed by : [address], [address] RDW SD 52.8(H) 35.7 - 48.1 fL SARAH Comment:Testing performed by : [address] [address] NRBC abs 0.00 0.00 - 0.01 K/cumm SARAH Comment:Testing performed by : [address] [address] Blood 08/11/2024 5:30 AM REGIONAL SALES REPRESENTATIVE 08/11/2024 9:09 AM REGIONAL SALES REPRESENTATIVE us Notinfile Unknown LAB BLOOD ORDERABLES Final Res ult Performing Organization Address [facility] Co de Phone Number SARAH [address] [place] [address] * (ABNORMAL) Prealbumin (08/11/2024 5:30 AM REGIONAL SALES REPRESENTATIVE) Prealbumin 13.6(L) 20.0 - 40.0 mg/dL SARAH Blood 08/11/2024 5:30 AM REGIONAL SALES REPRESENTATIVE 08/11/2024 11:07 AM REGIONAL SALES REPRESENTATIVE us Notinfile Unknown LAB BLOOD ORDERABLES Final Res ult Performing Organization Address [facility] Co de Phone Number [facility] [place] [address] * (ABNORMAL) Phosphorus (08/11/2024 5:30 AM REGIONAL SALES REPRESENTATIVE) Phosphorus, pl 5.8(H) 2.3 - 4.5 mg/dL SARAH Comment:Testing performed by : [address] [address] Blood 08/11/2024 5:30 AM REGIONAL SALES REPRESENTATIVE 08/11/2024 9:09 AM REGIONAL SALES REPRESENTATIVE us Notinfile Unknown LAB BLOOD ORDERABLES Final Res ult Performing Organization Address [facility] Co de Phone Number [address] [address] * Magnesium (08/11/2024 5:30 AM REGIONAL SALES REPRESENTATIVE) Magnesium 2.4 1.4 - 2.5 mg/dL SARAH Comment:Testing performed by : [address] [address] Blood 08/11/2024 5:30 AM REGIONAL SALES REPRESENTATIVE 08/11/2024 9:09 AM REGIONAL SALES REPRESENTATIVE us Notinfile Unknown LAB BLOOD ORDERABLES Final Res ult SARAH [address] [facility] Department [place] [address] * (ABNORMAL) Comprehensive metabolic panel (08/11/2024 5:30 AM REGIONAL SALES REPRESENTATIVE) Sodium 136 135 - 145 mmol/L SARAH Comment:Testing performed by : [address] [address] Potassium, pl 4.9 3.3 - 4.9 mmol/L SARAH Comment:Testing performed by : [address] [address] Chloride 96(L) 97 - 110 mmol/L SARAH Comment:Testing performed by : [address] [address] CO2 23 22 - 32 mmol/L SARAH Comment:Testing performed by : [address] [address] Anion gap 17(H) 2 - 15 mmol/L SARAH Comment:Testing performed by : [address] [address] BUN 60(H) 6 - 25 mg/dL SARAH Comment:Testing performed by : [address] [address] Creatinine 6.80(H) 0.80 - 1.30 mg/dL SARAH Comment:Testing performed by : [address] [address] Glucose 92 70 - 199 mg/dL SARAH [...] was last revised 2022. Testing performed by: [address] [address] Calcium 10.8(H) 8.5 - 10.3 mg/dL SARAH Comment:Testing performed by : [address] [address] Bilirubin, total 1.4(H) 0.1 - 1.2 mg/dL SARAH Comment:Testing performed by : [address] [address] Protein, pl 6.4(L) 6.5 - 8.5 g/dL SARAH Comment:Testing performed by : [address] [address] Albumin 3.9 3.5 - 5.0 g/dL SARAH Comment:Testing performed by : [address] [address] Alk phos 196(H) 40 - 130 Units/L SARAH Comment:Testing performed by : [address] [address] ALT 15 7 - 55 Units/L SARAH Comment:Testing performed by : [address] [address] AST 9(L) 10 - 50 Units/L SARAH Comment:Testing performed by : [address] [address] Blood 08/11/2024 5:30 AM REGIONAL SALES REPRESENTATIVE 08/11/2024 9:09 AM REGIONAL SALES REPRESENTATIVE us Notinfile Unknown LAB BLOOD ORDERABLES Final Res ult SARAH [address] [facility] Department [place] [address] * POCT lipid panel (07/26/2024 8:43 AM REGIONAL SALES REPRESENTATIVE) Cholesterol, POC 100 mg/dL HDL, POC 30 mg/dL Triglycerides, POC 50 mg/dL LDL Cholesterol POC 58 mg/dL Chol/HDL Ratio, POC - Non-HDL Cholesterol, POC - mg/dL Cholesterol Total, POC 100 mg/dL Capillary blood 07/26/2024 8 :43 AM REGIONAL SALES REPRESENTATIVE Sonia Jacobs NP POINT OF CARE TEST ORDERA BLES Final Result from Last 3 Months Insurance MEDICARE [facility] Address: [address] [address] [facility] Address: [facility] [id number] [place] [address] MEDICARE [facility] Address: [address] [place] [phone] [facility] MEDICARE [facility] Advance Directives For more information, please contact: [phone] * Full Code (Latest Code Status on File) Date Activated Date Inactivated Comments 03/18/2019 2:27 PM 03/19/2019 6:43 PM Care Teams Correctional Officer Relationship Specialty Start Date End Date Dickson Land MD [address] [place] [address] PCP - General Family Medicine 01/27/19 Dionicio Carrasquillo MD [address] [place] [address] [address] Surgeon Surgery 03/05/23
--- OUTSIDE RECORDS SUMMARY | 2024-09-30 11:53 | XMS_ITS | Patient Health Record ---
Author Organization [facility] Address [address] [address] Care Team Providers Care Word Processing Specialist Name Role Phone LandDickson Primary Care Provider WASHINGTON Li Unavailable [phone] ALLERGIES No Known Allergies REASON FOR REFERRAL Reason PALLIATIVE CARE RE CEIVED VIA EMIAL FROM DEV HUERTA AND JAZ RUBY Diagnosis 1 Hypertensive heart a nd chronic kidney disease with heart failure and with stage 5 chronic kidney disease, or end stage renal disease (I13.2) Diagnosis 2 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) Referred Organization [facility] Palliative [facility] Referred Provider WASHINGTON KENNY Referred Address [address] [facility], [place], [place],[address], General Notes 1. 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 HE MENTIONED THAT HIS DOCTOR HAD ALSO REFERRED HIM ELSEWHERE AND ASKED TO FOLLOW UP WITH HIM ON SEPTEMBER 09, 2024., I SPOKE WITH THE PATIENT REGARDING SCHEDULING AND HE IS STILL UNDECIDED REQUEST FOR ME TO FOLLOW UP WITH HIM .25, KIARA MEJIA 09/12/2024 01:29:33 PM >, ALONZO QUINONES 09/20/2024 04:49:44 PM > PATIENT ADMITTED TO PC Referral Priority Routine MEDICATIONS Medication SIG (Take, Route, Frequency, Duration) Notes Start Date End Date Status Lactulose 10 GM/15ML TAKE 30ML(2 TABLESPOONSFUL) BY MOUTH TWICE DAILY FOR CONSTIPATION Oral for 31 Days Active Atorvastatin Calcium 20 MG TAKE 1 TABLET BY MOUTH ONCE DAILY Oral for 90 Days Active Gabapentin 300 MG TAKE 1 CAPSULE BY MO UTH IN THE MORNING Oral for 90 Days Active Eliquis 5 MG TAKE 1 TABLET BY STEPHANIE TH TWICE DAILY Oral for 90 Days Active Allopurinol 300 MG Oral for 31 Days Active Midodrine HCl 10 MG Oral for 30 Days Active Amiodarone HCl 200 MG TAKE 1 TABLET BY M OUTH TWICE DAILY Oral for 30 Days Active PROBLEMS Problem Type ICD Code Onset Dates Problem Status W/U Status Risk SNOMED Code Notes Problem 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, or end stage renal disease (I13.2) Active confirmed Hypertensive heart AND chronic kidney disease with congestive heart failure (05138444206014) Problem 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) Active confirmed Biventricular congestive heart failure (36717649) Problem Cirrhosis of liver (K74.60) Active confirmed Cirrhosis of liver (88104477) VITAL SIGNS Heart Rate 80 /min 09/20/2024 Temperature 97.3 degrees Fahrenheit 09/20/2024 Respiratory Rate 20 /min 09/20/2024 Blood pressure diastolic 56 mm Hg 09/20/2024 Oximetry 94 % 09/20/2024 Blood pressure systolic 86 mm Hg 09/20/2024 Encounters Encounter Location Date Provider Diagnosis [address] [address] 09/20/2024 WASHINGTON KENNY 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, or end stage renal disease I13.2 ; Biventricular heart failure I50.82 ; Edema, peripheral R60.9 and Cirrhosis of liver K74.[address] [address] 09/28/2024 WASHINGTON KENNY ASSESSMENTS Encounter Date Diagnosis Assessment Notes Treatment [...] follow up with GI PLAN OF TREATMENT Next Appt Details Provider Name:WASHINGTON KENNY, 0 10/18/2024 09:45:00 AM, [address], [address], [place], [address], Insurance Providers Payer Name Payer Address Payer Phone Subscriber Number Group Number Insured Name Patient Relationship to Insured Coverage Start Date Coverage End Date [employer] [place] [address] [address] [place] [address] [id number] [place] Self - patient is the insured MEDICAL (GENERAL) HISTORY Medical History History ICD Code neuropathy Atrial fibrillation cirrhosis Hypertensive heart and chron ic kidney disease with heart failure and with stage 5 chronic kidney disease, or end stage renal disease I13.2 Biventricular heart failure I50.82 Surgical History Surgery Date(Month/Year) Hospitalization History Reason Date(Month/Year)
--- OUTSIDE RECORDS SUMMARY | 2024-09-30 11:53 | XMS_ITS | Encounter Summary ---
Author Organization [facility] Address [address] [place] [address] Care Team Providers Care Slide Fastener Chain Assembler Name Role Phone Dickson Land MD Primary Care Provider [phone] Reason for Visit * Reason Onset Date Comments A-FIB 08/02/2024 [employer] secure chat to Dr. Steward's group Dialysis management 08/02/2024 Spoke w/Van at Dr. Larsen' jarrod Encounter Details Date Type Department Care Team (Late st Contact Info) Description 08/02/2024 Telephone [facility] Admitting [address] [place] [address] [place] [address] [place] [address] A-FIB (Addepar chat to Dr. Steward'juan manuel group); Dialysis [...] st Contact Info) Description 10/12/2024 3:30 PM AWS SOLUTION ARCHITECT Office Visit [facility] Heart and Vascular - [address] [facility] [address] [address] [facility] [address] [place] [address] documented as of this encounter Visit Diagnoses Not on filedocumented in this encounter Additional Health Concerns Infection Onset Date Last Indicated Resolved Time R/O GI Pathogen 08/02/2024 08/02/2024 08/03/2024 6 :30 AM AWS SOLUTION ARCHITECT R/O C. diff 08/04/2024 08/04/2024 08/05/2024 7:00 AM AWS SOLUTION ARCHITECT documented as of this encounter Care Teams Slide Fastener Chain Assembler Relationship Specialty Start Date End Date Dickson Land MD [address] [place] [address] PCP - General Family Practice 04/17/22 documented as of this encounter
--- OUTSIDE RECORDS SUMMARY | 2024-09-30 11:54 | XMS_ITS | Encounter Summary ---
Author Organization [facility] Healthcare Address [address] [place] [address] Care Team Providers Care Biofuels Production Technician Name Role Phone Dickson Land MD Primary Care Provider Dionicio Carrasquillo MD Unavailable [phone] Encounter Details Date Type Department Care Team (Late st Contact Info) Description 02/04/2023 Telephone [facility] [address] [address] Dionicio Carrasquillo MD [address] [place] [address] Social History Tobacco Use Types Packs/Day Years [...] on filedocumented in this encounter Care Teams Biofuels Production Technician Relationship Specialty Start Date End Date Dickson Land MD [address] [facility] [address] [facility] [address] [place] [address] PCP - General Family Medicine 01/27/19 Dionicio Carrasquillo MD [address] [facility] [address] [place] [address] Surgeon Surgery 03/05/23 documented as of this encounter
--- OUTSIDE RECORDS SUMMARY | 2024-09-30 11:54 | XMS_ITS | Referral Summary ---
Author Organization [facility] Health Address [address] [place] [address] Care Team Providers Care Automatic Washer Mechanic Name Role Phone Dickson Land MD Primary Care Provider [phone] Source Comments [facility],non-[facility] Affiliates and Associated Physician Practices is amultiple site organization consisting of ambulatory clinics and hospital sitesin [place], [place], [place] and [place]. This disclosure is being madepursuant to the Care Everywhere program and may not contain all information available regarding this patient. Last updated 18.[facility] Health Encounters Date Type Department Care Team Description 07/27/2024 Travel from Last 3 Months Social History Tobacco Use Types Packs/Day Years Used Date Smoking Tobacco: Never Assessed Sex and Gender Information Value Date Recorded Sex Assigned at Not on file Gender Identity Not on file Sexual Orientation Not on file Plan of Treatment Not on file Care Teams Automatic Washer Mechanic Relationship Specialty Start Date End Date Dickson Land MD [address] [place] [address] PCP - General Family Medicine 03/30/24
--- OUTSIDE RECORDS SUMMARY | 2024-09-30 11:54 | XMS_ITS | Clinical Summary ---
Author Organization [facility] Address [address] [place] [address] Care Team Providers Care Director Of Business Continuity Name Role Phone Dickson Land MD Primary Care Provider [phone] Allergies No known active allergies Medications allopurinol [...] as needed. Indications: Allergic Conjunctivitis 03/05/20 Active Manila-3 Fatty Acids (FISH OIL) 1200 MG Cap [...] Diagnosed Date ESRD (end stage renal disease) ([facility]) 02/26/2022 DELANEY (acute kidney injury) 02/26/2022 Hypotension 02/26/2022 NSTEMI (non-ST elevated myoc ardial infarction) ([facility]) 02/04/2022 Stage 4 chronic kidney disease ([facility]) 07/26/2021 Encounters Date Type Department Care Team Description 08/02/2024 2:46 AM BIT AND SHANK DEPARTMENT SUPERVISOR - 08/02/2024 5:10 AM BIT AND SHANK DEPARTMENT SUPERVISOR Emergency [facility] Emergency Room [address] [place] [address] Mg Willingham MD Medical Problem Discharge Disposition: [...] Comments Blood Pressure 79/60 08/02/2024 4:40 AM BIT AND SHANK DEPARTMENT SUPERVISOR Pulse 99 08/02/2024 4:40 AM BIT AND SHANK DEPARTMENT SUPERVISOR Temperature 36.1 C (97 F) 08/02/2024 4:40 AM BIT AND SHANK DEPARTMENT SUPERVISOR Respiratory Rate 16 08/02/2024 4:40 AM BIT AND SHANK DEPARTMENT SUPERVISOR Oxygen Saturation 100% 08/02/2024 4:40 AM BIT AND SHANK DEPARTMENT SUPERVISOR Inhaled Oxygen Concentration - - Weight 108.1 kg (238 lb 5.1 oz) 08/02/2024 2:48 AM BIT AND SHANK DEPARTMENT SUPERVISOR Height 188 cm (6' 2 ) 08/02/2024 2:48 AM BIT AND SHANK DEPARTMENT SUPERVISOR Body Mass Index 30.6 08/02/2024 2:48 AM BIT AND SHANK DEPARTMENT SUPERVISOR Plan of Treatment Health Maintenance Due Date [...] this topic Medical Devices Implanted Type Area High School Teacher Device Identifier Shelf Expiration Date Model / Serial / Lot Arrow Next Step Retrograde Hemodialysis Catheter Implanted:Qty: 1 on 02/11/2022 by Kelton Palm MD at [facility] Catheter Implant Right: Neck [employer] [id number] 08/23/2024 [id number] / / [id number] Description:Right internal j ugular Procedures Procedure Name Priority Date/Time Associated Diagnosis Comments XR CHEST PORTABLE STAT 08/02/2024 3:2 8 AM BIT AND SHANK DEPARTMENT SUPERVISOR ECG 12-LEAD Routine 08/02/2024 3:08 AM BIT AND SHANK DEPARTMENT SUPERVISOR HEPARIN, ANTI XA, UFH STAT 08/02/2024 2:55 AM BIT AND SHANK DEPARTMENT SUPERVISOR BLOOD GAS, VENOUS STAT 08/02/2024 2:5 5 AM BIT AND SHANK DEPARTMENT SUPERVISOR TROPONIN, QUANT STAT 08/02/2024 2:55 AM BIT AND SHANK DEPARTMENT SUPERVISOR LACTIC ACID W REFLEX (SEPSIS) STAT 08/02/2024 2:55 AM BIT AND SHANK DEPARTMENT SUPERVISOR COMPREHENSIVE METABOLIC PANEL STAT 08/02/2024 2:55 AM BIT AND SHANK DEPARTMENT SUPERVISOR CBC W/DIFF AUTOMATED STAT 08/02/2024 2:55 AM BIT AND SHANK DEPARTMENT SUPERVISOR LIPID PANEL Routine 02/04/2022 6:40 AM CDT from Last 3 Months or Most Recently Relevant to Health Maintenance Results * XR CHEST PORTABLE (08/02/2024 3:28 AM BIT AND SHANK DEPARTMENT SUPERVISOR) Anatomical Region Laterality Modality Chest Radiographic [place] ging 08/02/2024 3:30 AM BIT AND SHANK DEPARTMENT SUPERVISOR Impressions 08/02/2024 3:32 AM BIT AND SHANK DEPARTMENT SUPERVISOR IMPRESSION: 1. Diffuse bilateral pulmonary opacity may represent mild pulmonary edema. 2. Small to moderate left pleural effusion. 3. Cardiac enlargement. Referred By: Interpreted By: Rubio Howell MD, 08/02/2024 3:30 AM Narrative 08/02/2024 3:32 AM BIT AND SHANK DEPARTMENT SUPERVISOR [facility] [address] [place] [address] INDICATION: Agonal breathing. New oxygen requirement. COMPARISON: [...] Procedure Note Rubio Howell MD - 08/02/2024 [facility] [address] [place] [address] INDICATION: Agonal breathing. New oxygen requirement. COMPARISON: [...] * ECG 12 lead (08/02/2024 3:08 AM BIT AND SHANK DEPARTMENT SUPERVISOR) 08/02/2024 3:08 AM BIT AND SHANK DEPARTMENT SUPERVISOR Narrative [facility] ([facility] RAD - 08/02/2024 3:49 PM BIT AND SHANK DEPARTMENT SUPERVISOR [facility] Test Date: 2024-08-02 Pat Name: ARMEN CUNNINGHAM Department: 85 Room: EXAM 202 Gender: Male Music Sound Light Technician: : 1940 Requested By: MG WILLINGHAM Order Number: [id number] Reading MD: Champ Nichols Measurements Intervals Krebs Rate: 91 P: TX: 0 QRS: -1 QRSD: 154 T: 75 [...] First degree AV block no longer present AND SHANK DEPARTMENT SUPERVISOR Procedure Note Champ Nichols MD - 08/02/2024 [facility] Test Date: 2024-08-02 Pat Name: ARMEN CUNNINGHAM Department: 85 Room: EXAM 202 Gender: Male Music Sound Light Technician: : 1940 Requested By: MG WILLINGHAM Order Number: [id number] Reading MD: Champ Nichols Measurements Intervals Krebs Rate: 91 P: TX: 0 QRS: -1 QRSD: 154 T: 75 [...] First degree AV block no longer present AND SHANK DEPARTMENT SUPERVISOR Mg Willingham MD ECG ORDERABLES Final Result Performing Organization Address City/[facility]/ZIP Co de Phone Number [facility] ([facility]) RAD * (ABNORMAL) LACTIC ACID W REFLEX (SEPSIS) (08/02/2024 2:55 AM BIT AND SHANK DEPARTMENT SUPERVISOR) LACTIC ACID VENOUS 2.7(HH) 0.4 - 2.0 MMOL/L 08/02/2024 3:46 AM BIT AND SHANK DEPARTMENT SUPERVISOR [facility] Comment: Critical Result(s) Called at: 03:46:11 on 08/02/2024 by: KIKI TRUJILLO to and read back by:IGNACIO Mccormick 08/02/2024 2:55 AM BIT AND SHANK DEPARTMENT SUPERVISOR Mg Willingham MD LABORATORY Final Result [facility] [address] [place] [address], [place] [phone] * (ABNORMAL) HEPARIN, ANTI XA, UFH (08/02/2024 2:55 AM BIT AND SHANK DEPARTMENT SUPERVISOR) HEPARIN ANTI XA UFH 1.44(HH) 0.30 - 0.70 IU/ML 08/02/2024 4:23 AM BIT AND SHANK DEPARTMENT SUPERVISOR [facility] Comment: UFH Therapeutic Anti Xa Ranges: Medical Therapeutic Range: 0.30 - 0.70 IU/mL Cardiac Therapeutic Range: 0.30 - 0.50 IU/mL Neuro Therapeutic Range: 0.20 - 0.40 IU/mL CALLED RESULT CALLED TO TREVOR W 0422 RS READ BACK AND VERIFIED 08/02/2024 2:55 AM BIT AND SHANK DEPARTMENT SUPERVISOR us Mg Willingham MD LABORATORY Final Result [facility] [address] [place] [address], * (ABNORMAL) Blood gas, venous (08/02/2024 2:55 AM BIT AND SHANK DEPARTMENT SUPERVISOR) PH VENOUS 7.45(H) 7.32 - 7.43 08/02/2024 3:13 AM [facility] PCO2 VENOUS 49.0 MMHG 08/02/2024 3:13 AM [facility] Comment:NO REFERENCE RANGE H BEEN ESTABLISHED PO2 VENOUS 91.0 MM HG 08/02/2024 3:13 AM [facility] Comment:NO REFERENCE RANGE H BEEN ESTABLISHED TOTAL CO2 VENOUS 35.6(H) 22.0 - 26.0 MMOL/L 08/02/2024 3:13 AM [facility] BASE EXCESS VENOUS 8.6 MMOL/L 08/02/2024 3:13 AM [facility] Comment:NO REFERENCE RANGE H BEEN ESTABLISHED O2 SAT VENOUS 97 % 08/02/2024 3:13 AM BIT AND SHANK DEPARTMENT SUPERVISOR [facility] Comment:NO REFERENCE RANGE H BEEN ESTABLISHED BICARB VENOUS 34.1(H) 22.0 - 29.0 MMOL/L 08/02/2024 3:13 AM [facility] O2 ADMIN VENOUS 6 LITER PER MINUTE 08/02/2024 3:10 AM [facility] 08/02/2024 2:55 AM BIT AND SHANK DEPARTMENT SUPERVISOR us Mg Willingham MD LABORATORY Final Result [facility] [address] [place] [address], * (ABNORMAL) COMPREHENSIVE METABOLIC PANEL (08/02/2024 2:55 AM BIT AND SHANK DEPARTMENT SUPERVISOR) GLUCOSE 133(H) 70 - 99 MG/DL 08/02/2024 3:46 AM [facility] BUN 57(H) 7 - 18 MG/DL 08/02/2024 3:46 AM [facility] CREATININE S/P/B 8.94(HH) 0.7 - 1.3 MG/DL 08/02/2024 3:46 AM [facility] Comment: Critical Result(s) Called at: 03:45:58 on 08/02/2024 by: KIKI TRUJILLO to and read back by:IGNACIO Mccormick SODIUM S/P/B 143 136 - 145 MMOL/L 08/02/2024 3:46 AM [facility] POTASSIUM S/P/B 4.3 3.5 - 5.1 MMOL/L 08/02/2024 3:46 AM [facility] CHLORIDE S/P/B 100 100 - 108 MMOL/L 08/02/2024 3:46 AM [facility] CO2 30.8 21 - 32 MMOL/L 08/02/2024 3:46 AM [facility] CALCIUM S/P/B 9.2 8.5 - 10.1 MG/DL 08/02/2024 3:46 AM [facility] BILIRUBIN TOTAL S/P/B 1.4(H) 0.2 - 1.2 MG/DL 08/02/2024 3:46 AM [facility] TOTAL PROTEIN S/P/B 6.5 6.4 - 8.2 G/DL 08/02/2024 3:46 AM [facility] ALBUMIN S/P/B 2.7(L) 3.4 - 5.0 G/DL 08/02/2024 3:46 AM [facility] AST 34 15 - 37 U/L 08/02/2024 3:46 AM [facility] ALT 14(L) 16 - 60 U/L 08/02/2024 3:46 AM [facility] ALKALINE PHOSPHATASE S/P/B 177(H) 50 - 136 U/L 08/02/2024 3:46 AM [facility] ANION GAP 12.2 5 - 15 MMOL/L 08/02/2024 3:46 AM [facility] BUN CREATININE RATIO 6.4 6 - 26 08/02/2024 3:46 AM [facility] A/G RATIO 0.7(L) 1.0 - 2.0 RATIO 08/02/2024 3:46 AM [facility] GFR ESTIMATE 5(L) >90 ML/MIN/1.7 3 M2 08/02/2024 3:46 AM [facility] Comment: NOTE: eGFR is not calculated for patients <18 years of age. This is an estimated GFR calculation using the new CKD EPI creatinine equation without race and so does not require a correction factor for race. This estimated GFR should not be used for calculating drug doses. 08/02/2024 2:55 AM BIT AND SHANK DEPARTMENT SUPERVISOR us Mg Willingham MD LABORATORY Final Result [facility] [address] [facility] [place] [address], [place] [phone] * (ABNORMAL) CBC W/DIFF AUTOMATED (08/02/2024 2:55 AM BIT AND SHANK DEPARTMENT SUPERVISOR) WBC 5.56 4.4 - 11.0 x10'3/uL 08/02/2024 3:48 AM BIT AND SHANK DEPARTMENT SUPERVISOR [facility] RBC 2.98(L) 4.50 - 5.90 x10'6/uL 08/02/2024 3:48 AM [facility] HGB 10.8(L) 14.0 - 17.5 G/DL 08/02/2024 3:48 AM [facility] HCT 31.8(L) 41.5 - 50.4 % 08/02/2024 3:48 AM [facility] MCV 106.7(H) 80.0 - 96.0 FL 08/02/2024 3:48 AM [facility] MCH 36.2(H) 26.5 - 31.4 PG 08/02/2024 3:48 AM [facility] MCHC 34.0 31.9 - 34.8 G/DL 08/02/2024 3:48 AM [facility] RDW 14.6(H) 12.3 - 14.3 % 08/02/2024 3:48 AM [facility] PLT 214 151 - 353 x10'3/uL 08/02/2024 3:48 AM [facility] MPV 10.0 9.7 - 11.9 FL 08/02/2024 3:48 AM [facility] RBC MORPHOLOGY NORMAL 08/02/2024 3:48 AM [facility] PLT MORPH. NORMAL 08/02/2024 3:48 AM [facility] WBC MORPHOLOGY NORMAL 08/02/2024 3:48 AM [facility] LYMPHOCYTES % 13.1(L) 15.8 - 45.0 % 08/02/2024 3:48 AM [facility] NEUTROPHILS % 71.1 42.1 - 71.9 % 08/02/2024 3:48 AM [facility] MONOCYTES % 14.9(H) 5.7 - 12.5 % 08/02/2024 3:48 AM [facility] EOSINOPHILS 0.2 0.0 - 5.6 % 08/02/2024 3:48 AM [facility] BASOPHILS 0.2 0.0 - 1.3 % 08/02/2024 3:48 AM [facility] ABS. NEUTROPHILS 3.95 1.40 - 6.00 x10'3/uL 08/02/2024 3:48 AM [facility] IMMATURE GRANS % 0.5 0.0 - 0.5 % 08/02/2024 3:48 AM [facility] ABS. LYMPHOCYTES 0.73(L) 0.80 - 4.70 x10'3/uL 08/02/2024 3:48 AM [facility] 08/02/2024 2:55 AM BIT AND SHANK DEPARTMENT SUPERVISOR us Mg Willingham MD LABORATORY Final Result [facility] [address] [place] [address], [place] [phone] * (ABNORMAL) TROPONIN, QUANT (08/02/2024 2:55 AM BIT AND SHANK DEPARTMENT SUPERVISOR) Pathologist [facility] TROPONIN I HIGH SENSITIVITY 7,830(HH) 0 - 75 ng/L 08/02/2024 3:46 AM BIT AND SHANK DEPARTMENT SUPERVISOR [facility] Comment: Critical Result(s) Called at: 03:46:23 on 08/02/2024 by: KIKI TRUJILLO to and read back by:IGNACIO Mccormick HIGH DOSES OF BIOTIN, TROPONIN-SPECIFIC AUTOANTIBODIES, AND ANTIBODY THERAPY CONTAINING HAMA MAY INTERFERE WITH THIS TEST RESULT. CORRELATION TO CLINICAL HISTORY AND PRESENTATION RECOMMENDED. 08/02/2024 2:55 AM BIT AND SHANK DEPARTMENT SUPERVISOR us Mg Willingham MD LABORATORY Final Result [facility] [address] [place] [address], [place] [phone] * (ABNORMAL) LIPID PANEL (02/04/2022 6:40 AM CDT) Pathologist [facility] CHOLESTEROL 119 <200 MG/DL 02/04/2022 7:24 AM CDT [facility] TRIGLYCERIDES 130 <150 MG/DL 02/04/2022 7:24 AM CDT [facility] HDL 31(L) >40.0 MG/DL 02/04/2022 7:24 AM CDT [facility] LDL (CALCULATED) 62 <100 MG/DL 02/05/20 7:24 AM CDT [facility] NON HDL CHOLESTEROL 88 <130 MG/DL 02/04 7:24 AM CDT [facility] CHOL/HDL RATIO 3.8 0.0 - 4.5 02/04/2022 7:24 AM CDT [facility] VLDL CALCULATION 26 5 - 55 MG/DL 02/04/2022 7:24 AM CDT [facility] LIPID INTERPRETATION 02/04/2022 7:24 AM CDT [facility] Comment: [facility] CONCENSUS REPORT RECOMMENDATIONS: ADULT CHILD LOW RISK: CHOLESTEROL <200 <170 TRIGLYCERIDE <150 --- HDL >=60 --- LDL <100 <110 BORDERLINE: CHOLESTEROL 200-239 170-199 TRIGLYCERIDE 150-199 --- HDL 40-59 --- LDL 100-159 110-129 HIGH RISK: CHOLESTEROL >=240 >=200 TRIGLYCERIDE >=200 --- HDL <40 --- LDL >=160 >=130 02/04/2022 6:40 AM CDT Maria M Ott DO LABORATORY Final Result [facility] [address] [place] [address], from Last 3 Months or Most Recently Relevant to Health Maintenance Insurance MEDICARE [facility] Advance Directives Documents on File Type Date Recorded Patient Washer Cutter Expl anation Power of Recruitment Internship * Full Code (Latest Code Status on File) Date Activated Date Inactivated Comments 03/24/2022 6:02 PM 07/13/2022 6:40 AM * Full Code Date Activated Date Inactivated Comments 02/04/2022 3:44 PM 02/21/2022 5:01 PM * DNR Date Activated Date Inactivated Comments 02/04/2022 2:37 AM 02/04/2022 3:44 PM Care Teams Director Of Business Continuity Relationship Specialty Start Date End Date Dickson Land MD [address] [place] [id number] PCP - General FAMILY PRACTICE 03/25/19
--- OUTSIDE RECORDS SUMMARY | 2024-09-30 11:54 | XMS_ITS | Encounter Summary ---
Author Organization [facility] Healthcare Address [address] [place] [address] Care Team Providers Care Facility Practice Specialist Name Role Phone Dickson Land MD Primary Care Provider Dionicio Carrasquillo MD Unavailable [phone] Encounter Details Date Type Department Care Team (Late st Contact Info) Description 02/06/2024 Orders Only [facility] Information Management [address] [place] [address] Scanning, Provider Social History Tobacco Use Types [...] on filedocumented in this encounter Care Teams Facility Practice Specialist Relationship Specialty Start Date End Date Dickson Land MD [address] [facility] [address] [place] [address] PCP - General Family Medicine 01/27/19 Dionicio Carrasquillo MD [address] [facility] [address] [place] [address] Surgeon Surgery 03/05/23 documented as of this encounter
--- OUTSIDE RECORDS SUMMARY | 2024-09-30 11:54 | XMS_ITS | Encounter Summary ---
Author Organization [facility] Healthcare Address [address] [place] [address] Care Team Providers Care Carnallite Plant Operator Name Role Phone Dickson Land MD Primary Care Provider Dionicio Carrasquillo MD Unavailable [phone] Encounter Details Date Type Department Care Team (Late st Contact Info) Description 07/03/2023 Telephone [facility] [address] [facility] [address] [place] [address] Lance Carrasquillo MD [address] [place] [address] [address] [place] [address] Social History Tobacco Use Types Packs/Day Years [...] on filedocumented in this encounter Care Teams Carnallite Plant Operator Relationship Specialty Start Date End Date Dickson Land MD [address] [facility] [address] [facility] [address] [place] [address] PCP - General Family Medicine 01/27/19 Dionicio Carrasquillo MD [address] [facility] [address] [place] [address] Surgeon Surgery 03/05/23 documented as of this encounter
--- OUTSIDE RECORDS SUMMARY | 2024-09-30 11:54 | XMS_ITS | Encounter Summary ---
Author Organization [facility] Healthcare Address [address] [place] [address] Care Team Providers Care Therapeutic Recreation Specialist Name Role Phone Dickson Land MD Primary Care Provider Dionicio Carrasquillo MD Unavailable [phone] Encounter Details Date Type Department Care Team (Late st Contact Info) Description 03/21/2019 Documentation [facility] Case Management [address] [place] [address] Opal Crawley RN Social History Tobacco Use [...] on filedocumented in this encounter Care Teams Therapeutic Recreation Specialist Relationship Specialty Start Date End Date Dickson Land MD [address] [place] [address] PCP - General Family Medicine 01/27/19 Dionicio Carrasquillo MD [address] [facility] [address] [place] [address] Surgeon Surgery 03/05/23 documented as of this encounter
--- OUTSIDE RECORDS SUMMARY | 2024-09-30 11:54 | XMS_ITS ---
Author Organization [facility] A Address [address] [address] Care Team Providers Care Animal Maintenance Supervisor Name Role Phone Dickson Land Primary Care Provider WASHINGTON Li Unavailable [phone] REASON FOR VISIT Physician Oversight Encounters Encounter Location Date Provider Diagnosis [facility] [address] [facility] [address] [address] 09/28/2024 WASHINGTON KENNY PLAN OF TREATMENT Next Appt Details Provider Name:WASHINGTON EKNNY, 0 10/18/2024 09:45:00 AM, [address], [place], [address], Progress Notes * ARMEN CUNNINGHAMDOB:[birth year] (84 yo M)Acc No.[id number]:09/28/2024 Patient: ARMEN CUNNINGHAM :1940 Age:84 Y Sex:Male Address:[address] [place] [id number] * true * Date:
--- OUTSIDE RECORDS SUMMARY | 2024-09-30 11:54 | XMS_ITS | Clinical Summary ---
Author Organization [facility] Address [address] [facility] [place] [address] Care Team Providers Care Front Office Administrator Name Role Phone Dickson Land MD Primary Care Provider Allergies No known active allergies Medications colchicine [...] Active Fluticasone Furoate (FLONASE SENSIMIST) 27.5 mcg/actuation [place], Suspension Administer 1 spray into each nostril [...] STL ABSTRACTION Provider, Abstract 08/25/2024 9:00 AM [employer] Office Visit [facility] HEART FAILURE PROGRAM [address] [place] [address] Zane Spann FNP HFrEF (heart failure with reduced ejection fraction) ([facility]) (Primary Dx); Severe mitral regurgitation; Severe aortic stenosis; Chronic atrial fibrillation ([facility]); ESRD (end stage renal disease) on dialysis [place] 08/15/2024 Telephone [facility] - [address] [facility] [address] [place] [address] Abelardo Steward MD hosp f/u 08/12/[address] [facility] HEART FAILURE PROGRAM [address] [address] [facility] [address] [place] [phone] Zane Spann, [place] HF Hospital F/U 08/09/2024 External Device Data STL ABSTRACTION Provider, Abstract 08/02/2024 6:04 AM [employer] - 08/10/2024 1:45 PM [employer] Hospital Encounter [facility] [address] [place] [address] Dominguez Matthew MD Wyman, Anne Elizabeth, MD Tchomobe Kengne, Ghislain Bernis, MD Meyer, Chase L, DO Shock circulatory [place] Discharge Disposition: Rehab Facility IP 08/02/2024 Travel 08/02/2024 [facility] Admitting [address] [place] [address] Dominguez Matthew MD A-FIB (Rupture secure chat to Dr. Steward's group); Dialysis [...] Comments Blood Pressure 80/44 08/25/2024 9:00 AM [employer] Pulse 63 08/25/2024 8:43 AM [employer] Temperature 36.7 C (98 F) 08/10/2024 7:33 AM [employer] Respiratory Rate 19 08/10/2024 12:59 PM [employer] Oxygen Saturation 96% 08/25/2024 8:43 AM [employer] Inhaled Oxygen Concentration - - Weight 99.8 kg (220 lb) 08/25/2024 8:43 AM [employer] Height 188 cm (6' 2 ) 08/25/2024 8:43 AM [employer] Body Mass Index 28.25 08/25/2024 8:43 AM [employer] Plan of Treatment Upcoming Encounters Date Type Department Care Team (Late st Contact Info) Description 10/12/2024 3:30 PM [employer] Office Visit [facility] - [address] [facility] [address] [address] [facility] [address] [place] [address] Health Maintenance Due Date Last Done Comments [...] Diagnosis Comments TELEMETRY REPORT 08/12/2024 1:23 PM [employer] TELEMETRY REPORT 08/12/2024 12:0 3 PM [employer] TELEMETRY REPORT 08/12/2024 12:0 3 PM [employer] TELEMETRY REPORT 08/12/2024 11:1 5 AM [employer] TELEMETRY REPORT 08/11/2024 2:30 PM [employer] TELEMETRY REPORT 08/11/2024 1:56 PM [employer] TELEMETRY REPORT 08/11/2024 1:56 PM [employer] TELEMETRY REPORT 08/11/2024 1:49 PM [employer] TELEMETRY REPORT 08/11/2024 1:43 PM [employer] TELEMETRY REPORT 08/11/2024 1:26 PM [employer] TELEMETRY REPORT 08/11/2024 1:25 PM [employer] TELEMETRY REPORT 08/11/2024 1:24 PM [employer] POC GLUCOSE Routine 08/10/2024 7:37 AM [employer] POC GLUCOSE Routine 08/10/2024 2:01 AM [employer] COMPREHENSIVE METABOLIC PANEL Routine 08/10/2024 1:46 AM [employer] PHOSPHORUS Routine 08/10/2024 1:46 AM [employer] MAGNESIUM LEVEL Routine 08/10/2024 1:46 AM [employer] CBC WITH DIFFERENTIAL Routine 08/10/2024 1:46 AM [employer] POC GLUCOSE Routine 08/09/2024 9:07 PM [employer] POC GLUCOSE Routine 08/09/2024 3:55 PM [employer] POC GLUCOSE Routine 08/09/2024 11:21 AM [employer] POC GLUCOSE Routine 08/09/2024 7:38 AM [employer] COMPREHENSIVE METABOLIC PANEL Routine 08/09/2024 2:54 AM [employer] PHOSPHORUS Routine 08/09/2024 2:54 AM [employer] MAGNESIUM LEVEL Routine 08/09/2024 2:54 AM [employer] CBC WITH DIFFERENTIAL Routine 08/09/2024 2:54 AM [employer] POC GLUCOSE Routine 08/09/2024 2:26 AM [employer] POC GLUCOSE Routine 08/08/2024 9:15 PM [employer] POC GLUCOSE Routine 08/08/2024 4:02 PM [employer] POC GLUCOSE Routine 08/08/2024 1:37 PM [employer] POC GLUCOSE Routine 08/08/2024 7:43 AM [employer] POC GLUCOSE Routine 08/08/2024 3:07 AM [employer] COMPREHENSIVE METABOLIC PANEL Routine 08/08/2024 2:11 AM [employer] PHOSPHORUS Routine 08/08/2024 2:11 AM [employer] MAGNESIUM LEVEL Routine 08/08/2024 2:11 AM [employer] CBC WITH DIFFERENTIAL Routine 08/08/2024 2:11 AM [employer] POC GLUCOSE Routine 08/07/2024 9:05 PM [employer] POC GLUCOSE Routine 08/07/2024 5:28 PM [employer] POC GLUCOSE Routine 08/07/2024 11:28 AM [employer] XR CHEST PA OR AP 1 VW Routine 08/07/2024 10:39 AM [employer] POC GLUCOSE Routine 08/07/2024 8:02 AM [employer] POC GLUCOSE Routine 08/07/2024 2:43 AM [employer] COMPREHENSIVE METABOLIC PANEL Routine 08/07/2024 1:13 AM [employer] PHOSPHORUS Routine 08/07/2024 1:13 AM [employer] MAGNESIUM LEVEL Routine 08/07/2024 1:13 AM [employer] CBC WITH DIFFERENTIAL Routine 08/07/2024 1:13 AM [employer] POC GLUCOSE Routine 08/06/2024 9:19 PM [employer] POC GLUCOSE Routine 08/06/2024 5:44 PM [employer] POC GLUCOSE Routine 08/06/2024 1:20 PM [employer] COMPREHENSIVE METABOLIC PANEL Routine 08/06/2024 6:31 AM [employer] PHOSPHORUS Routine 08/06/2024 6:31 AM [employer] MAGNESIUM LEVEL Routine 08/06/2024 6:31 AM [employer] CBC WITH DIFFERENTIAL Routine 08/06/2024 6:31 AM [employer] POC GLUCOSE Routine 08/06/2024 1:35 AM [employer] EKG 12-LEAD Stat 08/05/2024 11:02 PM [employer] EKG 12-LEAD Stat 08/05/2024 10:23 PM [employer] POC GLUCOSE Routine 08/05/2024 9:11 PM [employer] POC GLUCOSE Routine 08/05/2024 6:55 PM [employer] POC GLUCOSE Routine 08/05/2024 12:10 PM [employer] POC GLUCOSE Routine 08/05/2024 10:06 AM [employer] POC GLUCOSE Routine 08/05/2024 7:11 AM [employer] PTT Routine 08/05/2024 5:27 AM [employer] COMPREHENSIVE METABOLIC PANEL Routine 08/05/2024 5:27 AM [employer] PHOSPHORUS Routine 08/05/2024 5:27 AM [employer] MAGNESIUM LEVEL Routine 08/05/2024 5:27 AM [employer] CBC WITH DIFFERENTIAL Routine 08/05/2024 5:27 AM [employer] POC GLUCOSE Routine 08/05/2024 4:28 AM [employer] POC GLUCOSE Routine 08/04/2024 11:32 PM [employer] POC GLUCOSE Routine 08/04/2024 8:42 PM [employer] PTT Timed Study 08/04/2024 8:37 PM [employer] POC GLUCOSE Routine 08/04/2024 3:03 PM [employer] POC GLUCOSE Routine 08/04/2024 11:30 AM [employer] US ABDOMEN LIMITED Routine 08/04/2024 8: 45 AM [employer] POC GLUCOSE Routine 08/04/2024 7:32 AM [employer] PTT Routine 08/04/2024 5:43 AM [employer] COMPREHENSIVE METABOLIC PANEL Routine 08/04/2024 5:43 AM [employer] PHOSPHORUS Routine 08/04/2024 5:43 AM [employer] MAGNESIUM LEVEL Routine 08/04/2024 5:43 AM [employer] CBC WITH DIFFERENTIAL Routine 08/04/2024 5:43 AM [employer] XR CHEST PA OR AP 1 VW Routine 08/04/2024 5:36 AM [employer] POC GLUCOSE Routine 08/03/2024 8:44 PM [employer] PTT Routine 08/03/2024 8:44 PM [employer] POC GLUCOSE Routine 08/03/2024 3:41 PM [employer] PTT Timed Study 08/03/2024 1:45 PM [employer] LACTIC ACID Routine 08/03/2024 1:45 PM [employer] POC GLUCOSE Routine 08/03/2024 11:07 AM [employer] BLOOD GAS VENOUS Stat 08/03/2024 8:51 AM [employer] CALCIUM IONIZED Routine 08/03/2024 8:45 AM [employer] LACTIC ACID Stat 08/03/2024 8:45 AM [employer] POC GLUCOSE Routine 08/03/2024 8:16 AM [employer] HEPATIC FUNCTION PANEL Routine 08/03/2024 7:47 AM [employer] PHOSPHORUS Routine 08/03/2024 7:47 AM [employer] MAGNESIUM LEVEL Routine 08/03/2024 7:47 AM [employer] BASIC METABOLIC PANEL Routine 08/03/2024 7:47 AM [employer] DIFFERENTIAL, MANUAL Routine 08/03/2024 6:14 AM [employer] PTT Routine 08/03/2024 6:14 AM [employer] ACUTE HEPATITIS PANEL Routine 08/03/2024 6:14 AM [employer] CBC WITH DIFFERENTIAL Routine 08/03/2024 6:14 AM [employer] PTT Timed Study 08/02/2024 10:30 PM [employer] POC GLUCOSE Routine 08/02/2024 3:15 PM [employer] PTT Timed Study 08/02/2024 3:01 PM [employer] HEPATITIS B SURFACE ANTIGEN Routine 08/02/2024 1:07 PM [employer] LACTIC ACID Routine 08/02/2024 1:07 PM [employer] TROPONIN 6 HR, 5TH GEN Timed Study 08/02/2024 1:07 PM [employer] POC GLUCOSE Routine 08/02/2024 11:32 AM [employer] EKG 12-LEAD Stat 08/02/2024 11:30 AM [employer] ECHO COMPLETE Routine 08/02/2024 11:08 AM [employer] TROPONIN 2 HR, 5TH GEN Timed Study 08/02/2024 8:55 AM [employer] VERIFICATION BLOOD GROUP Stat 08/02/2024 7:36 AM [employer] Encounter for blood typing LACTIC ACID Stat 08/02/2024 7:36 AM [employer] POC GLUCOSE Routine 08/02/2024 7:32 AM [employer] EKG 12-LEAD Routine 08/02/2024 7:16 AM [employer] TYPE AND SCREEN Routine 08/02/2024 6:16 AM [employer] EXTRA TUBE (BLUE) Routine 08/02/2024 6:1 6 AM [employer] EXTRA TUBE Routine 08/02/2024 6:16 AM [employer] PROCALCITONIN Routine 08/02/2024 6:16 AM [employer] C-REACTIVE PROTEIN Routine 08/02/2024 6: 16 AM [employer] TROPONIN BASELINE, 5TH GEN Stat 08/02/2024 6:16 AM [employer] TROPONIN Stat 08/02/2024 6:16 AM [employer] LACTIC ACID Stat 08/02/2024 6:16 AM [employer] PHOSPHORUS Stat 08/02/2024 6:16 AM [employer] MAGNESIUM LEVEL Stat 08/02/2024 6:16 AM [employer] PROTIME-INR Stat 08/02/2024 6:16 AM [employer] COMPREHENSIVE METABOLIC PANEL Stat 08/02/2024 6:16 AM [employer] CBC WITH DIFFERENTIAL Stat 08/02/2024 6:16 AM [employer] PTT Routine 08/02/2024 6:16 AM [employer] X-RAY PRIOR STUDY Routine 08/02/2024 3:1 5 AM [employer] from Last 3 Months Results * TELEMETRY REPORT (08/12/2024 1:23 PM [employer]) Only the most recent of12 resultswithin the time period is included. Provider Scanning ECG ORDERABLES Final Result * (ABNORMAL) POC GLUCOSE (08/10/2024 7:37 AM [employer]) Only the most recent of39 resultswithin the time period is included. Pathologist [facility] GLUCOSE POC 106(H) 74 - 99 mg/dL 08/10/2024 7:37 AM [employer] [facility] POINT OF CARE SPECIMEN SOURCE, GLUCOSE POC Whole Blood 08/10/2024 7:37 AM [employer] [facility] POINT OF CARE Blood, whole 08/10/2024 7:37 AM [employer] 08/10/2024 7:44 AM [employer] Paulo Gomez DO POINT OF CARE TESTING Final Res ult [facility] POINT OF CARE CLIA # [id number] [place] [address] * (ABNORMAL) CBC WITH DIFFERENTIAL (08/10/2024 1:46 AM [employer]) Only the most recent of9 resultswithin the time period is included. Pathologist [facility] WBC 9.4 4.0 - 9.8 K/uL 08/10/2024 [...] Blood Venipuncture / Unknown 08/10/2024 1:46 AM [employer] 08/10/2024 3:37 AM [employer] Haile Du ENDBAND SIZER HEMATOLOGY ORDERABLES Final R esult Performing Organization Address City/[facility]/ZIP Co de Phone Number [facility] CLIA# [id number] [place] [address] * (ABNORMAL) PHOSPHORUS (08/10/2024 1:46 AM [employer]) Only the most recent of9 resultswithin the time period is included. PHOSPHORUS 6.2(H) 2.5 - 4.5 mg/dL 08/10/2024 4:12 AM [facility] Blood Venipuncture / Unknown 08/10/2024 1:46 AM [employer] 08/10/2024 3:35 AM [employer] Haileadolfo Du [employer]ER CHEMISTRY ORDERABLES Final Re sult [facility] [id number] [place] [address] * MAGNESIUM LEVEL (08/10/2024 1:46 AM [employer]) Only the most recent of9 resultswithin the time period is included. MAGNESIUM 2.6 1.6 - 2.6 mg/dL 08/10/2024 4:12 AM [facility] Blood Venipuncture / Unknown 08/10/2024 1:46 AM [employer] 08/10/2024 3:35 AM [employer] us Haile Du NP CHEMISTRY ORDERABLES Final Re sult [facility]# [id number] [place] [address] * (ABNORMAL) COMPREHENSIVE METABOLIC PANEL (08/10/2024 1:46 AM [employer]) Only the most recent of8 resultswithin the time period is included. SODIUM 135(L) 136 - 145 mmol/L 08/10/2024 4:[address] [facility] [facility] POTASSIUM 4.8 3.4 - 5.1 mmol/L 08/10/2024 4:[address] [facility] [employer] [facility] CHLORIDE 94(L) 98 - 107 mmol/L 08/10/2024 4:[address] [facility] [facility] CO2 21(L) 22 - 29 mmol/L 08/10/2024 4:[address] [facility] [facility] CALCIUM 10.2 8.6 - 10.4 mg/dL 08/10/2024 4:12 AM [facility] BUN 72(H) 6 - 20 mg/dL 08/10/2024 4:12 AM [facility] CREATININE 8.46(H) 0.67 - 1.17 mg/dL 08/10/2024 4:[address] [facility] Comment:The GFR result is no t [...] Blood Venipuncture / Unknown 08/10/2024 1:46 AM [employer] 08/10/2024 3:35 AM [employer] us Lucy Langford MD CHEMISTRY ORDERABLES Fin al Result [facility] CLIA# [id number] [place] [address] * XR CHEST PA OR AP 1 VW (08/07/2024 10:39 AM [employer]) Only the most recent of2 resultswithin the time period is included. Anatomical Region Laterality Modality Chest Computed Radiogr aphy 08/07/2024 10:4 1 AM [employer] Impressions 08/07/2024 10:51 AM [employer] IMPRESSION: 1. Mild pulmonary vascular congestion with left pleural effusion and left basilar atelectasis. DICTATION LOCATION: [address] Narrative 08/07/2024 10:51 AM [employer] CHEST, ONE VIEW DATE: 08/07/2024 10:39 AM [...] and left basilar atelectasis. DICTATION LOCATION: Location [address] [place] [address] Paulo Gomez DO DIAGNOSTIC IMAGING ORDERABLES F inal Result * EKG 12-LEAD (08/05/2024 11:02 PM [employer]) Only the most recent of4 resultswithin the time period is included. 08/05/2024 11:0 2 PM [facility] Narrative INTERFACE SYSTEM - 08/06/2024 8:[address] [address] Test Date: 2024-08-05 Pat Name: ARMEN JIMENEZ Department: 97 Room: [facility] 01 Gender: Male Client Technical Specialist: jm : 1940 Requested By: DOMINGUEZ BLAND Order Number: [id number] Reading MD: Kalia Mirza Measurements Intervals [place] Rate: 90 P: 0 CO: 0 QRS: -17 QRSD: 120 T: 177 QT: 392 QTc: 479 Interpretive Statements Atrial fibrillation with premature ventricular or aberrantly conducted complexes Right bundle branch block ST & T wave abnormality, consider lateral ischemia Abnormal ECG Compared to ECG 08/05/2024 22:23:33 Atrial fibrillation now present Right bundle-branch block now present Electronically Signed On 08-06-2024 8:04:51 [employer] by Kalia Mirza Procedure Note Kalia Mirza MD - 08/06/2024 [place] [address] Test Date: 2024-08-05 Pat Name: ARMEN JIMENEZ Department: 97 Room: 3746 01 Gender: Male Client Technical Specialist: jm : 1940 Requested By: DOMINGUEZ BELLO Order Number: [id number] Reading MD: Kalia Mirza Measurements Intervals [place] Rate: 90 P: 0 CO: 0 QRS: -17 QRSD: 120 T: 177 QT: 392 QTc: 479 Interpretive Statements Atrial fibrillation with premature ventricular or aberrantly conducted complexes Right bundle branch block ST & T wave abnormality, consider lateral ischemia Abnormal ECG Compared to ECG 08/05/2024 22:23:33 Atrial fibrillation now present Right bundle-branch block now present Electronically Signed On 08-06-2024 8:04:51 [employer] by Kalia Mirza us Malka Dozier APRN-DOMI ECG ORDERABLES Final Result INTERFACE SYSTEM Refer to clinic/hospital department * PTT (08/05/2024 5:27 AM [employer]) Only the most recent of9 resultswithin the time period is included. PTT 34.8 23.1 - 37.1 seconds 08/05/2024 7:57 AM [employer] [facility] Blood Venipuncture / Unknown 08/05/2024 5:27 AM [employer] 08/05/2024 6:26 AM [employer] us Dominguez Matthew MD HEMATOLOGY ORDERABLE S Final Result Performing Organization Address City/[facility]/ZIP Co de Phone Number [facility] CLIA# [id number] [address] [place] [address] * US ABDOMEN LIMITED (08/04/2024 8:45 AM [employer]) Anatomical Region Laterality Modality Abdomen Ultrasound 08/04/2024 8:48 AM [employer] Impressions 08/04/2024 10:39 AM [employer] IMPRESSION: 1. Cirrhotic liver morphology with sequela of portal hypertension including ascites and recanalization of the umbilical vein. No solid hepatic lesion is identified. 2. Gallbladder sludge. Gallbladder wall thickening is likely reactive to liver disease. DICTATION LOCATION: Location [address] [place] [address] 08/04/2024 10:39 AM [employer] EXAMINATION: US ABDOMEN LIMITED DATE: 08/04/2024 8:45 [...] liver disease. DICTATION LOCATION: Location 7 - [facility] Lucy Langford MD US ORDERABLES Final Re sult * (ABNORMAL) LACTIC ACID (08/03/2024 1:45 PM [employer]) Only the most recent of5 resultswithin the time period is included. Pathologist [facility] LACTIC ACID 2.2(H) <=2.0 mmol/L 08/03/2024 2:31 PM [employer] [facility] Blood Venipuncture / Unknown 08/03/2024 1:45 PM [employer] 08/03/2024 1:56 PM [employer] Lucy Langford MD CHEMISTRY ORDERABLES Fin al Result [facility]# [id number] [place] [address] * (ABNORMAL) BLOOD GAS VENOUS (08/03/2024 8:51 AM [employer]) Pathologist [facility] PH BLOOD POC 7.37 7.32 - 7.43 08/03/2024 8:51 AM [employer] [facility] PCO2 POC 57(H) 38 - 50 mm Hg 08/03/2024 8:51 AM [employer] [facility] PO2 POC 32 28 - 40 mm Hg 08/03/2024 8:51 AM [employer] [facility] HCO3 (CALC) POC 33(H) 22 - 29 mmol/L 08/03/2024 8:51 AM [employer] [facility] BASE EXCESS POC 6 No Reference Range Established mmol/L 08/03/2024 8:51 AM [employer] [facility] O2 SATURATION POC 53 40 - 70 % 08/03/2024 8:51 AM [facility] PH TEMP CORRECT 7.37 7.32 - 7.43 08/03/2024 8:51 AM [facility] PCO2 TEMP CORRECT 57(H) 38 - 50 mm Hg 08/03/2024 8:51 AM [facility] PO2 TEMP CORRECT 32 25 - 40 mm Hg 08/03/2024 8:51 AM [employer] [facility] SPECIMEN SOURCE, GASES POC Venous 08/03/2024 8:51 AM [facility] Blood, venous 08/03/2024 8:5 1 AM [employer] 08/03/2024 8:53 AM [employer] us Lucy Langford MD ABG ORDERABLES Final Re sult [facility]# [id number] [place] [address] * (ABNORMAL) CALCIUM IONIZED (08/03/2024 8:45 AM [employer]) PH, VENOUS 7.31 Ref Range Not Established 08/03/2024 9:30 AM [employer] [facility] CALCIUM IONIZED 4.6(L) 4.8 - 5.2 mg/dL 08/03/2024 9:30 AM [facility] Blood Venipuncture / Unknown 08/03/2024 8:45 AM [employer] 08/03/2024 9:20 AM [employer] us Lucy Langford MD CHEMISTRY ORDERABLES Fin al Result [facility]# [id number] [place] [address] * (ABNORMAL) HEPATIC FUNCTION PANEL (08/03/2024 7:47 AM [employer]) Pathologist [facility] TOTAL PROTEIN 6.7 6.3 - 8.7 g/dL 08/03/2024 8:42 AM [employer] [facility] ALBUMIN 3.5 3.5 - 5.2 g/dL 08/03/2024 8:42 AM [employer] [facility] BILIRUBIN TOTAL 1.3(H) 0.2 - 1.1 mg/dL 08/03/2024 8:42 AM [employer] [facility] BILIRUBIN DIRECT 0.6(H) 0.0 - 0.3 mg/dL 08/03/2024 8:42 AM [facility] Comment:Hemolysis present. R esult may be falsely elevated. ALKALINE PHOSPHATASE 148 40 - 150 U/L 08/03/2024 8:42 AM [employer] [facility] AST 70(H) 0 - 41 U/L 08/03/2024 8:42 AM [facility] Comment:Hemolysis present. R esult may be falsely elevated. ALT 21 0 - 41 U/L 08/03/2024 8:42 AM [facility] Blood Venipuncture / Unknown 08/03/2024 7:47 AM [employer] 08/03/2024 8:14 AM [employer] us Lucy Langford MD CHEMISTRY ORDERABLES Fin al Result [facility] [id number] [place] [address] * (ABNORMAL) BASIC METABOLIC PANEL (08/03/2024 7:47 AM [employer]) [facility] SODIUM 138 136 - 145 mmol/L 08/03/2024 8:42 AM [employer] [facility] POTASSIUM 4.9 3.4 - 5.1 mmol/L 08/03/2024 [...] Blood Venipuncture / Unknown 08/03/2024 7:47 AM [employer] 08/03/2024 8:14 AM [facility] us Haile Du [employer]ER CHEMISTRY ORDERABLES Final Re sult [facility] CLIA# [id number] [place] [address] * (ABNORMAL) MANUAL DIFFERENTIAL (08/03/2024 6:14 AM [employer]) SEGMENTED NEUTROPHILS 81 % 08/03/2024 9:22 AM [...] Blood Venipuncture / Unknown 08/03/2024 6:14 AM [employer] 08/03/2024 6:53 AM [employer] us Haile Du NP HEMATOLOGY ORDERABLES COM Fin al Result [facility] CLIA# [id number] [place] [address] * ACUTE HEPATITIS PANEL (08/03/2024 6:14 AM [employer]) HEPATITIS B SURFACE AG NON-REACT NICK Non-react nick 08/03/2024 7:22 AM [employer] [facility] Comment:A non-reactive test result does not exclude the possibility of exposure to or infection with hepatitis B. HEPATITIS B CORE IGM NON-REACT NICK Non-react nick 08/03/2024 7:22 AM [employer] [facility] Comment:IgM antibodies to HB c were not detected; does not exclude the possibility of exposure to HBV. HEPATITIS A IGM Non-react nick Non-react nick 08/03/2024 7:22 AM [employer] [facility] [facility] Comment:A negative test resu lt does not exclude the possibility of exposure to Hepatitis A virus. HEPATITIS C AB NON-REACT NICK Non-react nick 08/03/2024 7:22 AM [facility] Comment:Antibodies to HCV we re not detected, does not exclude the possibility of exposure to HCV. Blood Venipuncture / Unknown 08/03/2024 6:14 AM [employer] 08/03/2024 6:41 AM [employer] Brijesh Larsen MD CHEMISTRY ORDERABLES Karolina l Result [facility] CLIA# [id number] [place] [address] * (ABNORMAL) TROPONIN 6 HR, 5TH GEN (08/02/2024 1:07 PM [employer]) TROPONIN T, 6 HR 5TH GEN 2,209(HH) <=15 ng/L 08/02/2024 2:09 PM [employer] [facility] DELTA 6HR TROPONIN T % 92(HH) See Interp. % 08/02/2024 2:09 PM SUPER[employer] [facility] Blood Venipuncture / Unknown 08/02/2024 1:07 PM [employer] 08/02/2024 1:32 PM [employer] Narrative [facility] - 08/02/2024 2:09 PM SUPERVIS[employer]KS Troponin elevated. Delta significant change. Dominguez Matthew MD CHEMISTRY ORDERABLES Final Result Performing Organization Address [facility] Co de Phone Number [facility] [id number] [place] [address] * HEPATITIS B SURFACE ANTIGEN (08/02/2024 1:07 PM [employer]) Pathologist [facility] HEPATITIS B SURFACE AG NON-REACT NICK Non-react nick 08/02/2024 4:29 PM [employer]PERVISOR [employer] [facility] Comment:A non-reactive test result does not exclude the possibility of exposure to or infection with hepatitis B. Blood Venipuncture / Unknown 08/02/2024 1:07 PM [employer] 08/02/2024 1:32 PM [employer] Brijesh Larsen MD CHEMISTRY ORDERABLES Karolina l Result Performing Organization Address [facility] Co de Phone Number [facility]# [id number] [place] [address] * ECHO COMPLETE - CONTRAST AND STRAIN IF INDICATED (08/02/2024 11:08 AM [employer]) Pathologist [facility] EJECTION FRACTION 25 INTERFACE SYSTEM 08/02/2024 10:3 7 AM [employer] Narrative INTERFACE SYSTEM - 08/02/2024 11:27 AM [employer] Transthoracic Echocardiogram Patient: Armen Jimenez Study ID: [id number] Gender: M : 1940 Age: 84 Race: BRITNEY Height 182.9cm Study Date: 08/02/2024 Weight: 106.7kg Access. #: [id number] BP: 92 / 80 *Referring Physician:* Haile Du *Ordering Physician:* Haile Du *Athletic Shoe Designer:* Joana Freedman [facility] presser and shaper knitted goods: Nurse: Indications: Hypotension or Hemodynamic Instability; Elevated [...] values inside specified reference range. Procedure data: [facility] No prior study was available for [...] Prepared and Electronically Authenticated Armen Davis M.D. [id number]:27:40 Procedure Note Armen Davis MD - 08/02/2024 Transthoracic Echocardiogram Patient: Armen Jimenez Study ID: [id number] Gender: M : 1940 Age: 84 Race: BRITNEY Height 182.9cm Study Date: 08/02/2024 Weight: 106.7kg Access. #: [id number] BP: 92 / 80 *Referring Physician:* Haile Du *Ordering Physician:* Haile Du *Athletic Shoe Designer:Letty Freedman [facility] presser and shaper knitted goods: Nurse: Indications: Hypotension or Hemodynamic Instability; Elevated [...] values inside specified reference range. Procedure data: [facility] No prior study was available for [...] Prepared and Electronically Authenticated Armen Davis M.D. [id number]:27:40 us Haile Du NP US ORDERABLES Final Result INTERFACE SYSTEM Refer to clinic/hospital department * (ABNORMAL) TROPONIN 2 HR, 5TH GEN (08/02/2024 8:55 AM [employer]) TROPONIN T, 2 HR 5TH GEN 1,607() <=15 ng/L 08/02/2024 10:02 AM [employer] [facility] DELTA 2HR TROPONIN T % 40(HH) See Interp. % 08/02/2024 10:02 AM [employer] [facility] Blood Venipuncture / Unknown 08/02/2024 8:55 AM [employer] 08/02/2024 9:29 AM [employer] Narrative [facility] - 08/02/2024 10:02 AM [employer] Troponin elevated. Delta significant change. 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 [employer] [facility] Blood Venipuncture / Unknown 08/02/2024 7:36 AM [employer] 08/02/2024 7:45 AM [employer] us Lucy Langford MD BLOOD BANK ORDERABLES Fi nal Result [facility] CLIA# [id number] [place] [address] * EXTRA TUBE (BLUE) (08/02/2024 6:16 AM [employer]) Blood BLOOD SPECIMEN / Unknown Venipuncture / Unknown 08/02/2024 6:16 AM [employer] 08/02/2024 7:22 AM [employer] Lucy Langford MD HEMATOLOGY ORDERABLES Fi nal Result [facility]# [id number] [place] [address] * (ABNORMAL) TROPONIN BASELINE, 5TH GEN (08/02/2024 6:16 AM [employer]) TROPONIN T, BASELINE 5TH GEN 1,150(HH) <=15 ng/L 08/02/2024 7:59 AM [employer] [facility] Blood Venipuncture / Unknown 08/02/2024 6:16 AM [employer] 08/02/2024 6:36 AM SUPERVISOR WATER[employer]KS [facility] - 08/02/2024 7:59 AM [employer] Troponin elevated. Dominguez Matthew MD CHEMISTRY ORDERABLES Final Result Performing Organization Address City/[facility]/ZIP Co de Phone Number [facility] CLIA# [id number] [place] [address] * PROCALCITONIN (08/02/2024 6:16 AM SU[employer]) PROCALCITONIN 0.65 <2.01 ng/mL 08/02/2024 7:32 AM SUPER[employer]OR [employer] [facility] Blood Venipuncture / Unknown 08/02/2024 6:16 AM [employer] 08/02/2024 6:36 AM SUPERVISOR WATERWORKS [facility] - 08/02/2024 7:32 AM SUPERVISOR WATERWORKS The utility of procalcitonin is limited/NOT recommended [...] CHEMISTRY ORDERABLES Final Result Performing Organization Address City/[facility]/ZIP Co de Phone Number [id number] [place] [address] * (ABNORMAL) PROTIME-INR (08/02/2024 6:16 AM SUPERVISOR [employer]) Pathologist [facility] PROTIME 21.4(H) 11.5 - 14.7 Seconds 08/02/2024 7:18 AM SUPERVISOR WATERWORKS [facility] INR 1.8(H) 0.9 - 1.1 08/02/2024 7:18 AM SUPERVISOR WATERWORKS [facility] Blood Venipuncture / Unknown 08/02/2024 6:16 AM [employer] 08/02/2024 6:30 AM [employer] Haile Du NP HEMATOLOGY ORDERABLES Final R esult [facility] CLIA# [id number] [place] [address] * TYPE AND SCREEN (08/02/2024 6:16 AM [employer]) ABO GROUP O 08/02/2024 7:37 AM SUPERVISOR [employer]KS [facility] RH (D) TYPE Positive 08/02/2024 7:37 AM SUPERVISOR WATERWORKS [facility] ANTIBODY SCREEN Negative 08/02/2024 7:37 AM [employer]PER[employer]OR [employer] [facility] Blood Venipuncture / Unknown 08/02/2024 6:16 AM [employer] 08/02/2024 6:30 AM [employer]PER[employer]KS Haile Du ENDBAND SIZER BLOOD BANK ORDERABLES Edited Result - Final [facility]# [id number] [place] [address] * (ABNORMAL) C-REACTIVE PROTEIN (08/02/2024 6:16 AM SUPER[employer]) CRP 68.3(H) <5.0 mg/L 08/02/2024 7:05 AM [employer]OR [employer] [facility] Blood Venipuncture / Unknown 08/02/2024 6:16 AM [employer] 08/02/2024 6:36 AM [employer]PER[employer] Dominguez Matthew MD CHEMISTRY ORDERABLES Final Result [facility]# [id number] [place] [address] * (ABNORMAL) TROPONIN (08/02/2024 6:16 AM [employer]) TROPONIN T, 5TH GEN 1,096(HH) <=15 ng/L 08/02/2024 7:21 AM SUPER[employer]OR [employer] [facility] Blood Venipuncture / Unknown 08/02/2024 6:16 AM [employer] 08/02/2024 6:36 AM [employer]OR [employer] Narrative [facility] - 08/02/2024 7:21 AM [employer] Troponin elevated. Haile Du [employer]BAND SIZER CHEMISTRY ORDERABLES Final Re sult [facility]# [id number] [place] [address] * XR PRIOR STUDY (08/02/2024 3:15 AM SUPER[employer]) Narrative [facility] - 08/02/2024 6:21 AM SUPER[employer]OR [employer] This exam was auto finalized to allow images to be scanned to PACS. us External Provider [facility] DIAGNOSTIC IMAGING ORDERA BLES Final Result [facility] CLIA # [id number] [place] [address] from Last 3 Months Insurance MEDICARE PART A AND B [facility] MEDICARE PART A AND B BS FEDERAL Advance Directives For more information, please contact: [phone] * NO CPR (In Event of Cardiopulmonary [...] 6:07 AM 08/02/2024 6:40 AM Care Teams Front Office Administrator Relationship Specialty Start Date End Date Dickson Land MD [address] [facility] [address] [id number] PCP - General Family Practice 04/17/22
--- OUTSIDE RECORDS SUMMARY | 2024-09-30 11:54 | XMS_ITS | Encounter Summary ---
Author Organization [facility] Healthcare Address [address] [place] [address] Care Team Providers Care Button Tacker Name Role Phone Dickson Land MD Primary Care Provider Dionicio Carrasquillo MD Unavailable [phone] Encounter Details Date Type Department Care Team (Late st Contact Info) Description 12/08/2023 Telephone [facility] at [facility] [address] [facility] [address] [place] [address] Dionicio Carrasquillo MD [address] [place] [address] Social History Tobacco Use Types Packs/Day Years [...] on filedocumented in this encounter Care Teams Button Tacker Relationship Specialty Start Date End Date Dickson Land MD [address] [facility] [address] [facility] [address] [place] [address] PCP - General Family Medicine 01/27/19 Dionicio Carrasquillo MD [address] [facility] [address] [place] [address] Surgeon Surgery 03/05/23 documented as of this encounter
--- OUTSIDE RECORDS SUMMARY | 2024-09-30 11:54 | XMS_ITS | Clinical Summary ---
Author Organization [facility] Address [address] [place] [address] Care Team Providers Care Grocery Manager Name Role Phone Dickson Land MD Primary Care Provider [phone] Source Comments [facility],non-owned Affiliates and Associated Physician Practices is amultiple site organization consisting of ambulatory clinics and hospital sitesin [place], [place], [place] and [place]. This disclosure is being madepursuant to the Care Everywhere program and may not contain all information available regarding this patient. Last updated 18.[facility] Encounters Date Type Department Care [...] age to complete this topic Care Teams Grocery Manager Relationship Specialty Start Date End Date Dickson Land MD [address] [place] [address] PCP - General Family Medicine 03/30/24
--- OUTSIDE RECORDS SUMMARY | 2024-09-30 11:54 | XMS_ITS | Encounter Summary ---
Author Organization [facility] Healthcare Address [address] [place] [address] Care Team Providers Care Circular Stuffer Name Role Phone Dickson Land MD Primary Care Provider Dionicio Carrasquillo MD Unavailable [phone] Encounter Details Date Type Department Care Team (Late st Contact Info) Description 08/13/2023 Telephone [facility] [address] [facility] [address] [place] [address] Dionicio Carrasquillo MD [address] [place] [address] Social History Tobacco Use Types Packs/Day Years [...] on filedocumented in this encounter Care Teams Circular Stuffer Relationship Specialty Start Date End Date Dickson Land MD [address] [facility] [address] [facility] [address] [place] [address] PCP - General Family Medicine 01/27/19 Dionicio Carrasquillo MD [address] [facility] [address] [place] [address] Surgeon Surgery 03/05/23 documented as of this encounter
--- OUTSIDE RECORDS SUMMARY | 2024-09-30 11:54 | XMS_ITS | Patient Health Summary ---
Author Organization [facility] Address [address] [place] [address] Care Team Providers Care Labor Relations Director Name Role Phone Dickson Land MD Primary Care Provider [phone] Note from [facility],non-owned Affiliates and Associated Physician Practices is amultiple site organization consisting of ambulatory clinics and hospital sitesin [place], [place], [place] and [place]. This disclosure is being madepursuant to the Care Everywhere program and may not contain all information available regarding this patient. Last updated 18.[facility] Social History Tobacco Use Types Packs/Day Years Used Date Smoking Tobacco: Never Assessed Sex and Gender Information Value Date Recorded Sex Assigned at Not on file Gender Identity Not on file Sexual Orientation Not on file Care Teams Labor Relations Director Relationship Specialty Start Date End Date Dickson Land MD [address] [place] [address] PCP - General Family Medicine 03/30/24
--- OUTSIDE RECORDS SUMMARY | 2024-09-30 11:54 | XMS_ITS | Encounter Summary ---
Author Organization [facility] Healthcare Address [address] [place] [address] Care Team Providers Care Toll Line Mechanic Name Role Phone Dickson Land MD Primary Care Provider Dionicoi Carrasquillo MD Unavailable [phone] Encounter Details Date Type Department Care Team (Late st Contact Info) Description 04/06/2024 [facility]phone [facility] [address] [facility] [address] [place], [place] [id number] Dionicio Carrasquillo MD [address] [place] [address] Social History Tobacco Use Types Packs/Day Years [...] on filedocumented in this encounter Care Teams Toll Line Mechanic Relationship Specialty Start Date End Date Dickson Land MD [address] [facility] [address] [facility] 120 [place] [address] PCP - General Family Medicine 01/27/19 Dionicio Carrasquillo MD [address] [facility] [address] [place] [address] Surgeon Surgery 03/05/23 documented as of this encounter
== END 2024-09-30 11:17 | disposition home or self-care (01) ==
PROVIDERS: PCP Family Medicine; Visit Provider Nurse Practitioner Family
DX: K74.60 Unspecified cirrhosis of liver (principal); R18.8 Other ascites
CPT/HCPCS: 49083

== ENCOUNTER 2024-10-25 10:46 | Outpatient (CLI) | payer MEDICARE, BC, SELFPAY | END 2024-10-25 10:47 | disposition home or self-care (01) | PROVIDERS: PCP Family Medicine; Visit Provider Nurse Practitioner Family | DX: K74.60 Unspecified cirrhosis of liver (principal); R18.8 Other ascites | CPT/HCPCS: 49083 ==

== ENCOUNTER 2024-11-15 09:13 | Outpatient (CLI) | payer MEDICARE, BC, SELFPAY ==
--- NOTE | ~2024-11-15 | US_ITS ---
EXAMINATION: US paracentesis abd w/image DATE: 11/15/2024 10:37 INDICATION: Ascites. TECHNIQUE: The procedure and its risks, benefits, and alternatives were discussed with the patient. P otential risks discussed included bleeding and infection. The skin was prepped and draped in sterile fashion. 1% lidocaine was used for local anesthesia. Under ultrasound guidance, a 5 Fr catheter with trochar was advanced into the ascites in the left lower quadrant. Fluid was aspirated. The catheter w as removed, and a dressing was applied. There were no immediate complications. FINDINGS: Ultrasound images demonstrate ascites and the catheter within the fluid. IMPRESSION: 1. Successful ultrasound-guided paracentesis yielding 5000 mL of yellow fluid. Reviewed, dictated and finalized at location A.
[2024-11-15 09:48] LABS: Mean Platelet Volume 9.5 fl (7.4-10.4); Platelet Count Result 202 k/mm3 (150-375)
[2024-11-15 09:58] LABS: INR 1.4; Prothrombin Time 17.6 Seconds (11.1-14.7)
--- OUTSIDE RECORDS SUMMARY | 2024-11-15 10:10 | XMS_ITS | Clinical Summary ---
Author Organization [facility] Address [address] [place] [address] Phone Care Team Providers Care Hydrocrane Operator Name Role Phone Dickson Land MD Primary Care Provider [phone] Allergies No known active allergies Medications Medication [...] (01/28/2021): Added automatically from request for surgery [id number] Immunizations Name Administration Dates Next Due Sars-cov-2, [...] (#1) 2024 9, 05/25/2018, 08/07/2016 Care Teams Hydrocrane Operator Relationship Specialty Start Date End Date Dickson Land MD [address] [facility] [address] [facility] 120 [place] [address] PCP - General Internal Medicine 12/28/20
--- OUTSIDE RECORDS SUMMARY | 2024-11-15 10:10 | XMS_ITS | Clinical Summary ---
Author Organization [facility] Address [address] [place] [address] Care Team Providers Care Clerk General Name Role Phone Dickson Land MD Primary Care Provider [phone] Source Comments [facility],non-owned Affiliates and Associated Physician Practices is amultiple site organization consisting of ambulatory clinics and hospital sitesin [place], [place], [place] and [place]. This disclosure is being madepursuant to the Care Everywhere program and may not contain all information available regarding this patient. Last updated 18.[facility] Peak 10 Social History Tobacco Use Types Packs/Day Years [...] complete this topic MENINGOCOCCAL (Group B) VACCINE SHARED DECISION-MAKING Aged Out No longer eligible based on patient's age to complete this topic MENINGOCOCCAL GROUPS A/C/Y/W VACCINE Aged Out No longer eligible b ased on patient's age to complete this topic Care Teams Clerk General Relationship Specialty Start Date End Date Dickson Land MD [address] [facility] [address] [place] [address] PCP - General Family Medicine 03/30/24
--- OUTSIDE RECORDS SUMMARY | 2024-11-15 10:10 | XMS_ITS | Clinical Summary ---
Author Organization [facility] Address [address] [place] [address] Care Team Providers Care Business Office Associate Name Role Phone Dickson Land MD Primary [...] Active Fluticasone Furoate (FLONASE SENSIMIST) 27.5 mcg/actuation [place], Suspension Administer 1 spray into each nostril [...] Encounters Date Type Department Care Team Description 11/09/2024 External Device Data [facility] ABSTRACTION Provider, Abstract 10/31/2024 External Device Data [facility] ABSTRACTION Provider, Abstract 10/29/2024 External Device Data [facility] Provider, Abstract 10/28/2024 External Device Data [facility] Provider, Abstract 10/11/2024 External Device Data [facility] Provider, Abstract 09/15/2024 External Device Data [facility]CTION Provider, Abstract 09/06/2024 External Device Data [facility]CTION Provider, Abstract 08/25/2024 9:00 AM LEARNING AND DEVELOPMENT ASSISTANT Office Visit [facility] HEART FAILURE PROGRAM [address] [place] [address] Zane Spann FNP HFrEF (heart failure with reduced ejection fraction) ([facility]) (Primary Dx); Severe mitral regurgitation; Severe aortic stenosis; Chronic atrial fibrillation ([facility]); ESRD (end stage renal disease) on dialysis ([facility]) from Last 3 Months Family History Medical [...] Comments Blood Pressure 80/44 08/25/2024 9:00 AM LEARNING AND DEVELOPMENT ASSISTANT Pulse 63 08/25/2024 8:43 AM LEARNING AND DEVELOPMENT ASSISTANT Temperature 36.7 C (98 F) 08/10/2024 7:33 AM LEARNING AND DEVELOPMENT ASSISTANT Respiratory Rate 19 08/10/2024 12:59 PM LEARNING AND DEVELOPMENT ASSISTANT Oxygen Saturation 96% 08/25/2024 8:43 AM LEARNING AND DEVELOPMENT ASSISTANT Inhaled Oxygen Concentration - - Weight 99.8 kg (220 lb) 08/25/2024 8:43 AM LEARNING AND DEVELOPMENT ASSISTANT Height 188 cm (6' 2 ) 08/25/2024 8:43 AM LEARNING AND DEVELOPMENT ASSISTANT Body Mass Index 28.25 08/25/2024 8:43 AM LEARNING AND DEVELOPMENT ASSISTANT Plan of Treatment Health Maintenance Due Date Last Done Comments Traditional Medicare (ACO) A nnual Wellness Visit 1959 RSV VACCINE (60+ or ) (1 - 1-dose 75+ series) 2016 INFLUENZA VACCINE (#1) 2024 05/25/2021, 2019 DTAP/TDAP/TD VACCINES (2 - Td or Tdap) 12/02/2028 ZOSTER VACCINE Completed 08/23/2018, 05/25/2018 PNEUMOCOCCAL VACCINE 50+ YEARS Completed 12/02/2018 , 02/27/2016 Insurance MEDICARE PART A AND B [facility] MEDIC[facility] PART A AND B [facility] FEDERAL Advance Directives For more information, please contact: [phone] * NO CPR (In Event of Cardiopulmonary [...] 6:07 AM 08/02/2024 6:40 AM Care Teams Business Office Associate Relationship Specialty Start Date End Date Dickson Land MD [address] [address] PCP - General Family Practice 04/17/22
--- OUTSIDE RECORDS SUMMARY | 2024-11-15 10:10 | XMS_ITS | Encounter Summary ---
Author Organization [facility] Address [address] [place] [address] Care Team Providers Care Sewer Bricklayer Name Role Phone Dickson Land MD Primary Care Provider [phone] Reason for Visit * Reason Onset Date Comments A-FIB 08/02/2024 [employer] secure chat to Dr. Steward's group Dialysis management 08/02/2024 Spoke w/Van at Dr. Larsen' jarrod Encounter Details Date Type Department Care Team (Late st Contact Info) Description 08/02/2024 Telephone [facility] Admitting [address] [place] [address] [place] [address] [place] [address] A-FIB (Joosy chat to Dr. Steward'juan manuel group); Dialysis [...] Pathogen 08/02/2024 08/02/2024 08/03/2024 6 :30 AM INTERIM CONTROLLER R/O C. diff 08/04/2024 08/04/2024 08/05/2024 7:00 AM INTERIM CONTROLLER documented as of this encounter Care Teams Sewer Bricklayer Relationship Specialty Start Date End Date Dickson Land MD [address] [facility] [address] [place] [address] PCP - General Family Practice 04/17/22 documented as of this encounter
--- OUTSIDE RECORDS SUMMARY | 2024-11-15 10:10 | XMS_ITS | Patient Health Record ---
Author Organization [facility] Address [address] [address] Care Team Providers Care Metaphysics Teacher Name Role Phone EmeryDickson Primary Care Provider WASHINGTON Li Unavailable [phone] Reason For Referral Reason PALLIATIVE CARE RE CEIVED VIA EMIAL FROM DEV HUERTA AND JAZ RUBY Diagnosis 1 Hypertensive heart a nd chronic kidney disease with heart failure and with stage 5 chronic kidney disease, or end stage renal disease (I13.2) Diagnosis 2 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) Referred Organization [facility] Referred Provider WASHINGTON KENNY Referred Address [address] [facility], [place],[address], General Notes 1 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 HE MENTIONED THAT HIS DOCTOR HAD ALSO REFERRED HIM ELSEWHERE AND ASKED TO FOLLOW UP WITH HIM ON SEPTEMBER 09, 2024., I SPOKE WITH THE PATIENT REGARDING SCHEDULING AND HE IS STILL UNDECIDED REQUEST FOR ME TO FOLLOW UP WITH HIM 09.14.24, KIARA MEJIA 09/12/2024 01:29:33 PM >, ALONZO QUINONES 09/20/2024 04:49:44 PM > PATIENT ADMITTED TO Referral Priority Routine Medications Medication SIG (Take, Route, Frequency, Duration) Notes Start Date End Date Status Amiodarone HCl 200 MG TAKE 1 TABLET BY M OUTH TWICE DAILY Oral for 30 Days Active Midodrine HCl 10 MG Oral for 30 Days Active Gabapentin 300 MG TAKE 1 CAPSULE BY MO UTH IN THE MORNING Oral for 90 Days Active Allopurinol 300 MG Oral for 31 Days Active Atorvastatin Calcium 20 MG TAKE 1 TABLET BY MOUTH ONCE DAILY Oral for 90 Days Active Lactulose 10 GM/15ML TAKE 30ML(2 TABLESPOONSFUL) BY MOUTH TWICE DAILY FOR CONSTIPATION Oral for 31 Days Active Eliquis 5 MG TAKE 1 TABLET BY STEPHANIE TH TWICE DAILY Oral for 90 Days Active Social History Tobacco Use: Social History Observation Description Date Details (start date - stop date) Never Smoker NA - NA Tobacco Use/Smoking Question Answer Notes Are you a nonsmoker Problems Problem Type SNOMED Code ICD Code Onset Dates Problem Status W/U Status Risk Notes Problem Hypertensive heart AND chronic kidney disease with congestive heart failure (70813497826195) 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, or end stage renal disease (I13.2) Active confirmed Problem Biventricular congestive heart failure (89265019) 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) Active confirmed Problem Cirrhosis of liver (69531164) Cirrhosis of liver (K74.60) Active confirmed Vital Signs Heart Rate 50 /min 10/18/2024 Temperature 97.5 degrees Fahrenheit 10/18/2024 Respiratory Rate 16 /min 10/18/2024 Oximetry 96 % 10/18/2024 Blood pressure diastolic 54 mm Hg 10/18/2024 Blood pressure systolic 82 mm Hg 10/18/2024 Encounters Encounter Location Date Provider Diagnosis [address] [address] 09/20/2024 WASHINGTON ZOYA 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, or end stage renal disease I13.2 ; Biventricular heart failure I50.82 ; Edema, peripheral R60.9 and Cirrhosis of liver K74.[address] [address] 10/18/2024 WASHINGTON ZOYA 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, or end stage renal disease I13.2 ; Biventricular heart failure I50.82 ; Edema, peripheral R60.9 ; Cirrhosis of liver K74.60 ; Encounter for palliative care Z51.5 and Inguinal hernia K40.[address] [place] [address] 09/28/2024 WASHINGTON ZOYA Assessments Encounter Date Diagnosis (ICD Code) Assessment Notes Treatment Notes Treatment Clinical Notes Section Notes 09/20/2024 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, or end stage renal disease (ICD-10 - I13.2) 10/18/2024 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, or end stage renal disease (ICD-10 - I13.2) 09/20/2024 Biventricular heart failure (ICD-10 - I50.82) Continue medications as ordered Follow up with cardiology as scheduled 10/18/2024 Biventricular heart failure (ICD-10 - I50.82) Continue medications as ordered Follow up with cardiology as scheduled 09/20/2024 Edema, peripheral (ICD-10 - R60.9) Continue to wear compression socks Watch salt in diet Keep feet/legs elevated when sitting 10/18/2024 Edema, peripheral (ICD-10 - R60.9) Continue to wear compression socks Watch salt in diet Keep feet/legs elevated when sitting 10/18/2024 Cirrhosis of liver (ICD-10 - K74.60) Continue follow up with GI 09/20/2024 Cirrhosis of liver (ICD-10 - K74.60) Continue follow up with GI 10/18/2024 Encounter for palliative care (ICD-10 - Z51.5) 10/18/2024 Inguinal hernia (ICD-10 - K40.90) Plan Of Treatment Next Appt Details Provider Name:WASHINGTON KENNY, 0 11/22/2024 09:45:00 AM, [address] [facility], [place], [address], Insurance Providers Payer Name Payer Address Payer Phone Subscriber Number Group Number Insured Name Patient Relationship to Insured Coverage Start Date Coverage End Date [employer] [place] [address] [address] [place] [address] [id number] ARMEN CUNNINGHAM Self - patient is the insured Medical (General) History Medical History History ICD Code neuropathy Atrial fibrillation cirrhosis Hypertensive heart and chron ic kidney disease with heart failure and with stage 5 chronic kidney disease, or end stage renal disease I13.2 Biventricular heart failure I50.82 Peripheral edema Surgical History Surgery Date(Month/Year) Hospitalization History Reason Date(Month/Year)
--- OUTSIDE RECORDS SUMMARY | 2024-11-15 10:10 | XMS_ITS | Clinical Summary ---
Author Organization [facility] Address [address] [place] [address] Care Team Providers Care Sap Technical Architect Name Role Phone Dickson Land MD Primary Care Provider Dionicio Carrasquillo MD Unavailable [phone] Allergies No known active allergies Medications allopurinol [...] 5 mg tabletIndicati ons:PAF (paroxysmal atrial fibrillation) (HCC) Take 0.5 tablets (2.5 mg total) [...] mouth 3 (three) times a day Active lactulose 0.67 gram/mL solution TAKE 30ML(2 TABLESPOONSFUL) BY MOUTH TWICE DAILY FOR CONSTIPATION 4 Active docusate sodium (DOK) 100 mg tabletIndicati ons:constipati on Take 1 tablet (100 mg total) by mouth 2 (two) times a day Active atorvastatin (LIPITOR) 20 mg tabletIndicati ons:Coronary artery disease of [place] artery of [place] heart with stable angina pectoris Take 1 tablet (20 mg total) by mouth daily 90 tablet 1 5 Active atorvastatin (LIPITOR) 20 mg tabletIndicati ons:Coronary artery disease of [place] artery of [place] heart with stable angina pectoris Take 1 tablet by mouth once daily 90 tablet 4 025 Discontin ued(Reord er) Active Problems Problem Noted Date Diagnosed Date Cardiomyopathy 08/31/2024 Nonrheumatic mitral valve regurgitation 08/31/19 25 ESRD (end stage renal disease) on dialysis 12/03 Overview (12/03/2022): Added automatically from request for surgery [id number] Assessment & Plan (09/13/2024 9:37 AM DIGITAL CAMPAIGN SPECIALIST): Patient is currently dialyzing through a right [...] proceed. Assessment & Plan (09/15/2023 3:15 PM DIGITAL CAMPAIGN SPECIALIST): Impression: Patient is being dialyzed through a [...] dialysis. Assessment & Plan (08/11/2023 1:31 PM DIGITAL CAMPAIGN SPECIALIST): Dialyzing through a right brachiocephalic fistula. States [...] any decrease in sensory motor has strong rn pediatric icu his hand is warm. He denies any [...] (valve) stenosis 04/22/2022 PAF (paroxysmal atrial fibrillation) 03/10/2022 Assessment & Plan (08/11/2023 1:32 PM DIGITAL CAMPAIGN SPECIALIST): Chronic controlled. Continue amiodarone Dizziness 01/27/2022 Sensorineural hearing loss (SNHL) of both ears 0 12/03/2021 Bilateral lower extremity edema 07/26/2021 Essential hypertension 04/09/2021 Assessment & Plan (09/13/2024 9:32 AM DIGITAL CAMPAIGN SPECIALIST): Patient's blood pressure is now mostly labile and hypotensive. Continue midodrine as per his physician. Assessment & Plan (2024 10:49 AM CDT): Continue antihypertensives Assessment & Plan (09/15/2023 3:16 PM DIGITAL CAMPAIGN SPECIALIST): Impression: Chronic and stable. Plan: Continue metoprolol Assessment & Plan (08/11/2023 1:24 PM DIGITAL CAMPAIGN SPECIALIST): metoprolol Hyperlipidemia LDL goal <70 04/09/2021 Assessment & Plan (09/13/2024 9:31 AM DIGITAL CAMPAIGN SPECIALIST): Controlled. Continue Lipitor Assessment & Plan (2024 10:49 AM CDT): Continue Lipitor Assessment & Plan (09/15/2023 3:16 PM DIGITAL CAMPAIGN SPECIALIST): Impression: Chronic stable. Plan: Continue atorvastatin Assessment & Plan (08/11/2023 1:32 PM DIGITAL CAMPAIGN SPECIALIST): Continue Lipitor Coronary artery disease of n ative artery of [place] heart with stable angina pectoris 04/09/2021 Bilateral impacted cerumen 03/05/2021 Chronic eczematous otitis externa of left ear Erectile dysfunction 02/17/2019 Overview (02/17/2019): Added automatically from request for surgery [id number] Resolved Problems Problem Noted Date Diagnosed Date Resolved Date CKD (chronic kidney disease) stage 4, GFR 15-29 ml/min 07/26/2021 09/15/2023 Class 2 obesity due to exces s calories without serious comorbidity with body mass index (BMI) of 36.0 to 36.9 in adult 04/09/2021 Urologic disorder 04/04/2019 04/04/2019 Encounters Date Type Department Care Team Description 11/03/2024 Telephone [facility] Cardiology [address] [place] [address] Angel Chow MD 09/20/2024 11:30 AM DIGITAL CAMPAIGN SPECIALIST Office Visit [facility] Otolaryngology [address] [place] [address] Ravi Palm II, MD Sensorineural hearing loss (SNHL) of both ears (Primary Dx); Bilateral impacted cerumen 09/19/2024 Telephone [facility] at [facility] [address] [place] [address] Malka Woo NP Updating medication list 09/13/2024 7:50 AM DIGITAL CAMPAIGN SPECIALIST - 09/13/2024 11:59 PM DIGITAL CAMPAIGN SPECIALIST Hospital Encounter [facility] Medical Office Building 2 Vascular [address] [place] [address] ESRD (end stage renal disease) on dialysis (HCC); Other complication of arteriovenous dialysis fistula, initial encounter Discharge Disposition: Discharge to home or self care 09/13/2024 7:50 AM DIGITAL CAMPAIGN SPECIALIST - 09/13/2024 11:59 PM DIGITAL CAMPAIGN SPECIALIST Hospital Encounter [facility] at [facility] [address] [place] [address] ESRD (end stage renal disease) on dialysis (HCC) (Primary Dx); Other complication of arteriovenous dialysis fistula, initial encounter; Hyperlipidemia LDL goal <70; Essential hypertension Discharge Disposition: Discharge to home or self care 08/31/2024 1:30 PM DIGITAL CAMPAIGN SPECIALIST Office Visit [facility] Cardiology [address] [place] [address] Angel Chow MD PAF (paroxysmal atrial fibrillation) (HCC) (Primary Dx); Nonrheumatic aortic (valve) stenosis; Hyperlipidemia LDL goal <70; Essential hypertension; Coronary artery disease of [place] artery of [place] heart with stable angina pectoris; Nonrheumatic mitral valve regurgitation; Cardiomyopathy, unspecified type (HCC) from Last 3 Months Immunizations Immunization Administration Dates Next Due Sars-CoV-2, Unspecified 12/01/2020 Surgical History Surgery Date Site/Laterality Comments APPENDECTOMY 08/24/1944 - 08/23/1945 TONSILLECTOMY 08/24/1955 - 08/23/1956 KNEE ARTHROSCOPY 08/24/1993 - 08/23/1994 Left CARDIAC STENT PLACEMENT 08/24/2010 - 08/23/2011 x2 CORONARY ANGIOPLASTY NEPHRECTOMY 07/24/2022 - 08/23/2022 Left for cancer TUNNELED VENOUS CATHETER PLACEMENT 02/11/2022 Right RIJ permsukumar - Dr. Palm (removed 07/06/23 - Dr. [...] Erectile dysfunction Gout DVT (deep venous thrombosis) (HCC) 1993 CAD (coronary artery disease) ED (erectile dysfunction) CKD (chronic kidney disease) [place], old PONV (postoperative nausea and vomiting) Allergic rhinitis Heart attack (HCC) 2010 Hyperlipidemia Cancer (HCC) kidney Obesity Bruises easily Hemodialysis patient perma cath right chest, MWF [facility] Ear problems Family History Medical History Relation [...] Comments Blood Pressure 78/56 09/13/2024 8:39 AM DIGITAL CAMPAIGN SPECIALIST Asymptomatic: states BP has been running on low side, denies any symptoms at this time. Pulse 60 09/13/2024 8:39 AM DIGITAL CAMPAIGN SPECIALIST Temperature 36.7 C (98 F) 09/20/2024 12:22 PM DIGITAL CAMPAIGN SPECIALIST Respiratory Rate 22 04/12/2024 10:3 0 AM CDT Oxygen Saturation 100% 09/13/2024 8:3 9 AM DIGITAL CAMPAIGN SPECIALIST Inhaled Oxygen Concentration - - Weight 95.3 kg (210 lb) 09/20/2024 12:2 2 PM DIGITAL CAMPAIGN SPECIALIST Height 188 cm (6' 2 ) 09/20/2024 12:22 PM DIGITAL CAMPAIGN SPECIALIST Body Mass Index 26.96 09/20/2024 12:22 PM DIGITAL CAMPAIGN SPECIALIST Plan of Treatment Health Maintenance Due Date Last Done Comments Depression Screening 1940 Hepatitis B Screening 1958 Well Visit 65+ 2006 Influenza Vaccine (#1) 2024 , 05/31/2019, 05/25/2018, Additional history exists Fall Risk Assessment 04/12/2025 04/12/2024 DTaP/Tdap/Td Vaccine (2 - Td or Tdap) 12/02/2028 12/02/2018 Zoster Vaccine Completed 08/23/2018, 05/25/2018 Pneumococcal vaccine 65+ Completed 12/02/2018, 01/2016 Medical Devices Implanted Type Area Credit Counselor Device Identifier Shelf Expiration Date Model / Serial / Lot Coloplast Lux [id number] Titan Lock-Out Inflatable Self Contain Fluid Fill Tube Standard Latex Free - Sn/A - [id number] Implanted:Qty: 1 on 03/18/2019 by Angel Kiran MD at [facility] Other - see comments N/A: Penis Coloplast Lux 09/20/2023 [id number] / N/A / [id number] Description:PENIAL PROSTHESI S Coloplast Lux [id number] Titan Coloplast Lock-Out Inflatable Self Contain Fluid Fill Valve Latex Free - Sn/A - [id number] Implanted:Qty: 1 on 03/18/2019 by Angel Kiran MD at [facility] Other - see comments N/A: Penis Coloplast Lux 10/07/2023 [id number] / N/A / [id number] Description:PENILE PROSTHESI S Coloplast Lux [id number] Pros 0d Cyl 20cm Penile Ttn Otr Scrotum - Sn/A - [id number] Implanted:Qty: 1 on 03/18/2019 by Angel Kiran MD at [facility] Other - see comments N/A: Penis Coloplast Lux 11/29/2023 [id number] / N/A / [id number] Description:PENILE PROSTHESI S Stent Heart Description:x2 Procedures Procedure Name Priority Date/Time Associated Diagnosis Comments US HEMODIALYSIS ACCESS Schedule Routine, Read Routine (OP Routine) 09/13/2024 8:32 AM DIGITAL CAMPAIGN SPECIALIST ESRD (end stage renal disease) on dialysis (HCC) Other complication of arteriovenous dialysis fistula, initial encounter from Last 3 Months Results * US Hemodialysis Access (09/13/2024 8:32 AM DIGITAL CAMPAIGN SPECIALIST) Anatomical Region Laterality Modality Vascular N/A Ultrasound 09/13/2024 Narrative 09/16/2024 8:16 AM DIGITAL CAMPAIGN SPECIALIST [employer] Job ID: [id number] [employer] Document ID: [id number] Dictated date/time: [id number] RIGHT UPPER EXTREMITY HEMODIALYSIS DUPLEX REASON FOR [...] suggestive of stenosis. Job ID/Internal Job ID: [id number] Lance Carrasquillo MD [facility] PROCEDURES Final Result from Last 3 Months Insurance MEDICARE [facility] MEDICARE [facility] MEDICARE [facility] Advance Directives For more information, please contact: [phone] * Full Code (Latest Code Status on File) Date Activated Date Inactivated Comments 03/18/2019 2:27 PM 03/19/2019 6:43 PM Care Teams Sap Technical Architect Relationship Specialty Start Date End Date Dickson Land MD [address] [facility] [address] [place] [address] PCP - General Family Medicine 01/27/19 Dionicio Carrasquillo MD [address] [place] [address] Surgeon Surgery 03/05/23
--- OUTSIDE RECORDS SUMMARY | 2024-11-15 10:10 | XMS_ITS ---
Author Organization [facility] Address [address] [address] Care Team Providers Care Hr Leader Name Role Phone EmeryDickson Primary Care Provider WASHINGTON Li Unavailable [phone] Allergies No Known Allergies Medications Medication SIG (Take, Route, Frequency, Duration) [...] 300 MG Oral for 31 Days Active Problems Problem Type SNOMED Code ICD Code Onset Dates Problem Status W/U Status Risk Notes Problem Cirrhosis of liver (96067487) Cirrhosis of liver (K74.60) Active confirmed Vital Signs Temperature 97.3 degrees Fahrenheit 09/20/19 25 Blood pressure systolic 86 mm Hg 09/20/19 25 Blood pressure diastolic 56 mm Hg 025 Heart Rate 80 /min 09/20/2024 Respiratory Rate 20 /min 09/20/2024 Oximetry 94 % 09/20/2024 Encounters Encounter Location Date Provider Diagnosis [facility] [address] [facility] [address] [address] 09/20/2024 WASHINGTON KENNY 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, or end stage renal disease I13.2 ; Biventricular heart failure I50.82 ; Edema, peripheral R60.9 and Cirrhosis of liver K74.60 Assessments Encounter Date Diagnosis (ICD Code) Assessment [...] - K74.60) Continue follow up with GI Plan Of Treatment Treatment Notes Assessment Notes Biventricular heart failure Continue medications as ordered Follow up with cardiology as scheduled Edema, peripheral Continue to wear compression socks Watch salt in diet Keep feet/legs elevated when sitting Cirrhosis of liver Continue follow up w ith GI Next Appt Details Follow Up: 4 Weeks, Reason: Heart and renal failure Provider Name:Guadalupe CORTES 11/22/2024 09:45:00 AM, [address] [place], [address], Progress Notes * ARMEN CUNNINGHAMDOB:[birth year] (84 yo M)Acc No.[id number]:09/20/2024 Progress Notes Patient: ARMEN LEMUS Provider: Dakota KENNY APN :1940 A ge:84 Y S ex:Male Date:09/20/2024 Address:[address] [place], [place] [address] Pcp:Dickson Land Subjective: * Chief Complaints: * * HPI: D epression Screening: PHQ-2 (2015 Edition) L ittle interest or pleasure in doing things? N ot at all, F eeling down, depressed, or hopeless? N ot at all, T otal Score 0 . P alliative Care: New Patient P atient seen in his home for admission to [...] hospice at this time. . * ROS: G eneral/Constitutional: Patient D enies, change in appetite, chills, fatigue, fever, headache, night sweats. F unction A mbulatory, uses walker for long distances. C hange in appetite n egative. F ever n egative. H eadache n egative. E NT: Patient D enies, difficulty swallowing, sore throat. ? R espiratory: Patient D enies, chest pain, chronic cough, shortness of breath, wheezing. C ardiovascular: Patient D enies, chest pain, dizziness, weight gain. ? G astrointestinal: Admits C onstipation. G enitourinary: Patient D enies, painful urination. M usculoskeletal: Patient E ndorses, arthritis. * Medical History: * Surgical History: N o Surgical History documented. * Hospitalization/Major Diagno stic Procedure: N o Hospitalization History. * Medications: T akingAmiodarone HCl 200 MG Tablet TAKE 1 TABLET [...] and reconciled with the patient * Allergies: N .K.D.A.no[Allergies Verified] Objective: * Vitals: B P:86/56mm Hg, HR:80/min, RR:20/min, Temp:97.3F, Oxygen sat %:94%, PPS:70%, Pain scale:00-10, PX:>6. * Examination: G eneral Examination: GENERAL APPEARANCE: a lert, well hydrated, in no distress, pleasant, well nourished, calm and relaxed, cooperative. PSYCH: c ognitive function intact, cooperative with exam, good eye contact. EYES: W NL. CV: M urmur noted that. RESP: W NL, clear to auscultation bilaterally, good air movement. GI: b owel sounds present, liver nontender. : D eferred. 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 SKIN: W NL. EXTREMITIES: 2 + pitting edema right leg and 1+ edema left leg . PERIPHERAL PULSES: R ight arm fistula with strong bruit noted. Assessment: * Assessment: 1. H ypertensive 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, or end stage renal disease - I13.2 (Primary) 2 . B iventricular heart failure - I50.82 3 . E elizabeth, peripheral - R60.9 4 . C irrhosis of liver - K74.60 Plan: * Treatment: 2. E elizabeth, peripheral Notes: Continue to wear compression socks Watch salt in diet Keep feet/legs elevated when sitting 3. C irrhosis of liver Notes: Continue follow up with GI * Procedure Codes: G 8734 ELDER MALTX SCR DOC NEG NO F/U [id number] ACP DISCUSS/DSCN MKR DOCD * Preventive Medicine: Screenings: F alls Risk S creening: T wo or more falls without injury in the past year. E lder Maltreatment . P ain Assessment Follow up F ollow Up plan discussed N o, R debbie: P atient not eligible candidate Patient does not have pain. A DVANCED CARE PLANNING: A n advanced care directive: h as been finalized. D EPRESSION SCREENING: D ate of most recent screenin 09/20/2024, P HQ inventory: w ith score of 0-4,was completed today. T OBACCO USE SCREENING: T he patient smoked: n o tobacco products. * Follow Up: 4 Weeks (Reason: Heart and renal failure) Care Plan: * Problems: * Billing Information: * Visit Code: 49468 1st 30 mins Advance Care Planning. 72924 Initial Home Care 5 (75 mins). * Procedure Codes: G8734 ELDER MALTX SCR DOC NEG NO F/U RQR. 1123F ACP DISCUSS/DSCN MKR DOCD. Care Plan Details* * Sign off status: Completed true * Provider: Dakota KENNY APN Date: 0 09/20/2024 Generated for Guadalupe slater/Aanlia/Solsmitting on: 0 11/15/2024 11:09 AM EDT History and Physical Notes * HPI (History [...]
--- OUTSIDE RECORDS SUMMARY | 2024-11-15 10:10 | XMS_ITS ---
Author Organization [facility] O perating A Address [address] [address] Care Team Providers Care Superintendent Meters Name Role Phone LandDickson Primary Care Provider WASHINGTON Li Unavailable [phone] REASON FOR VISIT 1 month f/u Medications Medication SIG (Take, Route, Frequency, Duration) Notes Start Date End Date Status Gabapentin 300 MG TAKE 1 CAPSULE BY [...] TWICE DAILY Oral for 90 Days Active Amiodarone HCl 200 MG TAKE 1 TABLET BY M OUTH TWICE DAILY Oral for 30 Days Active Midodrine HCl 10 MG Oral for 30 Days Active Social History Tobacco Use: Social History Observation Description Date Details (start date - stop date) Never Smoker NA - NA Tobacco Use/Smoking Question Answer Notes Are you a nonsmoker Vital Signs Temperature 97.5 degrees Fahrenheit 10/18/19 25 Blood pressure systolic 82 mm Hg 10/18/19 25 Blood pressure diastolic 54 mm Hg 025 Heart Rate 50 /min 10/18/2024 Respiratory Rate 16 /min 10/18/2024 Oximetry 96 % 10/18/2024 Encounters Encounter Location Date Provider Diagnosis [facility] [address] [facility] [address] [address] 10/18/2024 WASHINGTON KENNY 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, or end stage renal disease I13.2 ; Biventricular heart failure I50.82 ; Edema, peripheral R60.9 ; Cirrhosis of liver K74.60 ; Encounter for palliative care Z51.5 and Inguinal hernia K40.90 Assessments Encounter Date Diagnosis (ICD Code) Assessment Notes Treatment Notes Treatment Clinical Notes Section Notes 10/18/2024 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, or end stage renal disease (ICD-10 - I13.2) 10/18/2024 Biventricular heart failure (ICD-10 - I50.82) Continue medications as ordered Follow up with cardiology as scheduled 10/18/2024 Edema, peripheral (ICD-10 - R60.9) Continue to wear compression socks Watch salt in diet Keep feet/legs elevated when sitting 10/18/2024 Cirrhosis of liver (ICD-10 - K74.60) Continue follow up with GI 10/18/2024 Encounter for palliative care (ICD-10 - Z51.5) 10/18/2024 Inguinal hernia (ICD-10 - K40.90) Plan Of Treatment Treatment Notes Assessment Notes [...] Name:Guadalupe CORTES 11/22/2024 09:45:00 AM, [address] [place], [address], Progress Notes * ARMEN CUNNINGHAMDOB:[birth year] (84 yo M)Acc No.[id number]:10/18/2024 Progress Notes Patient: ARMEN LEMUS Provider: Priscilla KENNY APN :1940 A ge:84 Y S ex:Male Date:10/18/2024 Address:[address] [place], [place] [id number] Pcp:Dickson Land Subjective: * Chief Complaints: * 1 month f/u * HPI: D epression Screening: PHQ-2 (2015 Edition) L ittle interest or pleasure in doing things? N ot at all, F eeling down, depressed, or hopeless? N ot at all, T otal Score 0 . P alliative Care: Follow Up Visit P lottieient seen in his home for palliative care follow up. He is accompanied by his significant other. He is relaxing in recliner during visit in no visible distress. B iventricular heart disease: reports 25% ejections fraction. Under the care of cardiology. He is not a candidate for surgery. E nd stage renal disease:He only has his right kidney his left one was removed in 2020 due to renal carcinoma. He has a right arm fistula and receives hemodialysis 3 times per week. L iver cirrhosis: non alcohol related. Ascites: gets a paracentesis every 3 weeks with removal of about 4-5 liters. Last tap was September 30; Next one P eripheral edema:chronic issue. Unable to get compression socks on so he uses non medical compression socks with a looser top and compression wraps. He has not had them on today. H ypotension C hronic issue: asymptomatic R ight groin hernia surfaced 4 days ago H ernia is reducible. No pain. No changes in bowels. H e is in good spirits. He feels that he has a great treatment plan. P eripheral edema C hronic issue U ses compression stocking but does not have them on yet this AM D NR D iscussed palliative care services vs hospice. [...] stic Procedure: N o Hospitalization History. * Social History: T obacco Use: T obacco Use/Smoking A re you a n onsmoker. * Medications: T akingAmiodarone HCl 200 MG [...] and reconciled with the patient * Allergies: n o[Allergies Verified] Objective: * Vitals: B P:82/54mm Hg, HR:50/min, RR:16/min, Temp:97.5F, Oxygen sat %:96%, PPS:70%, Pain scale:00-10, PX:>6. * Examination: G eneral Examination: GENERAL APPEARANCE: a lert, well hydrated, in no distress, pleasant, well nourished, calm and relaxed, cooperative. PSYCH: c ognitive function intact, cooperative with exam, good eye contact. EYES: W NL. CV: M urmur noted, rate regular. RESP: W NL, clear to auscultation bilaterally, good air movement. GI: b owel sounds present, liver nontender. : R ight inguinal hernia noted; reducible . 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 SKIN: N o suspicious lesions, Skin jaundiced. EXTREMITIES: 2 + pitting edema right leg and 1+ edema left leg . PERIPHERAL PULSES: R ight arm fistula . ? Assessment: * Assessment: 1. H ypertensive 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, or end stage renal disease - I13.2 (Primary) 2 . B iventricular heart failure - I50.82 3 . E elizabeth, peripheral - R60.9 4 . C irrhosis of liver - K74.60 5 .?Encounter for palliative care - Z51.5 6 . I nguinal hernia - K40.90 Plan: * Treatment: 2. E elizabeth, peripheral Notes: Continue to wear compression socks Watch salt in diet Keep feet/legs elevated when sitting 3. C irrhosis of liver Notes: Continue follow up with GI * Procedure Codes: * Preventive Medicine: Screenings: F alls Risk [...] Problems: * Billing Information: * Visit Code: 16122 Subsequent Home Care 1 (20 mins). 1123F ACP Documented - Non-billable. * Procedure Codes: Care Plan Details* * Sign off status: Completed true * Provider: Priscilla KENNY APN Date: 0 10/18/2024 Generated for Guadalupe slater/Analia/Tammiitting on: 0 11/15/2024 11:10 AM EDT History and Physical Notes * HPI (History of Present Illness) Category Sub-Category Detail Notes Category Not es Palliative Care Follow Up Visit Patient seen in his home for palliative care follow up. He is accompanied by his significant other. He is relaxing in recliner during visit in no visible distress. Biventricular heart disease: reports 25% ejections fraction. Under the care of cardiology. He is not a candidate for surgery. End stage renal disease:He only has his right kidney his left one was removed in 2020 due to renal carcinoma. He has a right arm fistula and receives hemodialysis 3 times per week. Liver cirrhosis: non alcohol related. Ascites: gets a paracentesis every 3 weeks with removal of about 4-5 liters. Last tap was September 30; Next one Peripheral edema:chronic issue. Unable to get compression socks on so he uses non medical compression socks with a looser top and compression wraps. He has not had them on today. Hypotension Chronic issue: asymptomatic Right groin hernia surfaced 4 days ago Hernia is reducible. No pain. No changes in bowels. He is in good spirits. He feels that he has a great treatment plan. Peripheral edema Chronic issue Uses compression stocking but does not have them on yet this AM DNR Discussed palliative care services vs hospice. He [...] and relaxed, cooperative EYES: WNL CV: Murmur noted, rate r egular RESP: WNL, clear to auscul tation bilaterally, good air movement GI: bowel sounds present , liver nontender SKIN: No suspicious lesion s, Skin jaundiced EXTREMITIES: 2+ pitting edema rig ht leg and 1+ edema left leg PERIPHERAL PULSES: Right arm fistula MUSCULOSKELETAL: Left hip with protru sherron due to Paget's disease PSYCH: cognitive function i ntact, cooperative with exam, good eye contact : Right inguinal herni a noted; reducible
--- OUTSIDE RECORDS SUMMARY | 2024-11-15 10:10 | XMS_ITS | Referral Summary ---
Author Organization [facility] Address [facility] [place] [address] Care Team Providers Care Fishery Division Chief Name Role Phone Dickson Land MD Primary Care Provider Dionicio Carrasquillo MD Unavailable [phone] Encounters Date Type Department Care Team Description 11/03/2024 Telephone [facility] Cardiology [address] [place] [address] Angel Chow MD 09/20/2024 11:30 AM SEWER REPAIRER Office Visit [facility] Otolaryngology [address] [facility] 1st [address], [address] [place] [address] Ravi Palm II, MD Sensorineural hearing loss (SNHL) of both ears (Primary Dx); Bilateral impacted cerumen 09/19/2024 Telephone [facility] Dialysis Access Center at [facility] [address] [place] [address] Malka Woo NP Updating medication list 09/13/2024 7:50 AM SEWER REPAIRER - 09/13/2024 11:59 PM SEWER REPAIRER Hospital Encounter [facility] Dialysis Access Center at [facility] [address] [place] [address] ESRD (end stage renal disease) on dialysis (HCC) (Primary Dx); Other complication of arteriovenous dialysis fistula, initial encounter; Hyperlipidemia LDL goal <70; Essential hypertension Discharge Disposition: Discharge to home or self care 09/13/2024 7:50 AM SEWER REPAIRER - 09/13/2024 11:59 PM SEWER REPAIRER Hospital Encounter [facility] Office Building 2 Vascular [address] [address] ESRD (end stage renal disease) on dialysis (HCC); Other complication of arteriovenous dialysis fistula, initial encounter Discharge Disposition: Discharge to home or self care 08/31/2024 1:30 PM SEWER REPAIRER Office Visit [facility] Cardiology [address] [place] [address] Angel Chow MD PAF (paroxysmal atrial fibrillation) (HCC) (Primary Dx); Nonrheumatic aortic (valve) stenosis; Hyperlipidemia LDL goal <70; Essential hypertension; 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; Nonrheumatic mitral valve regurgitation; Cardiomyopathy, unspecified type ([facility]) from Last 3 Months Allergies No known [...] 20 mg tabletIndicati ons: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 Take 1 tablet (20 mg total) by mouth daily 90 tablet 1 5 Active atorvastatin (LIPITOR) 20 mg tabletIndicati ons: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 Assessment & Plan (09/15/2023 3:15 PM SEWER REPAIRER): Impression: Patient is being dialyzed through a [...] dialysis. Assessment & Plan (08/11/2023 1:31 PM SEWER REPAIRER): Dialyzing through a right brachiocephalic fistula. States [...] any decrease in sensory motor has strong hide or skin buffer his hand is warm. He denies any [...] 03/10/2022 Assessment & Plan (08/11/2023 1:32 PM SEWER REPAIRER): Chronic controlled. Continue amiodarone Dizziness 01/27/2022 Sensorineural hearing loss (SNHL) of both ears 0 12/03/2021 Bilateral lower extremity edema 07/26/2021 Essential hypertension 04/09/2021 Assessment & Plan (09/13/2024 9:32 AM SEWER REPAIRER): Patient's blood pressure is now mostly labile and hypotensive. Continue midodrine as per his physician. Assessment & Plan (2024 10:49 AM CDT): Continue antihypertensives Assessment & Plan (09/15/2023 3:16 PM SEWER REPAIRER): Impression: Chronic and stable. Plan: Continue metoprolol Assessment & Plan (08/11/2023 1:24 PM SEWER REPAIRER): metoprolol Hyperlipidemia LDL goal <70 04/09/2021 Assessment & Plan (09/13/2024 9:31 AM SEWER REPAIRER): Controlled. Continue Lipitor Assessment & Plan (2024 10:49 AM CDT): Continue Lipitor Assessment & Plan (09/15/2023 3:16 PM SEWER REPAIRER): Impression: Chronic stable. Plan: Continue atorvastatin Assessment & Plan (08/11/2023 1:32 PM SEWER REPAIRER): Continue Lipitor Coronary artery disease of n ative artery of three affiliated heart with stable angina pectoris 04/09/2021 Bilateral impacted cerumen 03/05/2021 Chronic eczematous otitis externa of left ear Erectile dysfunction 02/17/2019 Overview (02/17/2019): Added automatically from request for surgery [id number] Resolved Problems Problem Noted Date Diagnosed Date Resolved Date CKD (chronic kidney disease) stage 4, GFR 15-29 ml/min 07/26/2021 09/15/2023 Class 2 obesity due to exces s calories without serious comorbidity with body mass index (BMI) of 36.0 to 36.9 in adult 04/09/2021 Urologic disorder 04/04/2019 04/04/2019 Immunizations Immunization Administration Dates Next Due Sars-CoV-2, [...] Comments Blood Pressure 78/56 09/13/2024 8:39 AM SEWER REPAIRER Asymptomatic: states BP has been running on low side, denies any symptoms at this time. Pulse 60 09/13/2024 8:39 AM SEWER REPAIRER Temperature 36.7 C (98 F) 09/20/2024 12:22 PM SEWER REPAIRER Respiratory Rate 22 04/12/2024 10:3 0 AM CDT Oxygen Saturation 100% 09/13/2024 8:3 9 AM SEWER REPAIRER Inhaled Oxygen Concentration - - Weight 95.3 kg (210 lb) 09/20/2024 12:2 2 PM SEWER REPAIRER Height 188 cm (6' 2 ) 09/20/2024 12:22 PM SEWER REPAIRER Body Mass Index 26.96 09/20/2024 12:22 PM SEWER REPAIRER Plan of Treatment Not on file Medical Devices Implanted Type Area Sales And Service Engineer Device Identifier Shelf Expiration Date Model / Serial / Lot Coloplast Lux [id number] Titan Lock-Out Inflatable Self Contain Fluid Fill Tube Standard Latex Free - Sn/A - [id number] Implanted:Qty: 1 on 03/18/2019 by Angel Kiran MD at [facility] Other - see comments N/A: Penis Coloplast Lux 09/20/2023 [id number] / N/A / [id number] Description:PENIAL PROSTHESI S Coloplast Lux [id number] Titan Coloplast Lock-Out Inflatable Self Contain Fluid Fill Valve Latex Free - Sn/A - [id number] Implanted:Qty: 1 on 03/18/2019 by Angel Kiran MD at [facility] Other - see comments N/A: Penis Coloplast Lux 10/07/2023 [id number] / N/A / [id number] Description:PENILE PROSTHESI S Coloplast Lux [id number] Pros 0d Cyl 20cm Penile Ttn Otr Scrotum - Sn/A - [id number] Implanted:Qty: 1 on 03/18/2019 by Angel Kiran MD at [facility] Other - see comments N/A: Penis Coloplast Lux 11/29/2023 [id number] / N/A / [id number] Description:PENILE PROSTHESI S Stent Heart Description:x2 Procedures Procedure Name Priority Date/Time Associated Diagnosis Comments US HEMODIALYSIS ACCESS Schedule Routine, Read Routine (OP Routine) 09/13/2024 8:32 AM SEWER REPAIRER ESRD (end stage renal disease) on dialysis (HCC) Other complication of arteriovenous dialysis fistula, initial encounter from Last 3 Months Results * US Hemodialysis Access (09/13/2024 8:32 AM SEWER REPAIRER) Anatomical Region Laterality Modality Vascular N/A Ultrasound 09/13/2024 Narrative 09/16/2024 8:16 AM SEWER REPAIRER Simalaya Job ID: [id number] Simalaya Document ID: [id number] Dictated date/time: [id number] RIGHT UPPER EXTREMITY HEMODIALYSIS DUPLEX REASON FOR [...] suggestive of stenosis. Job ID/Internal Job ID: [id number] Lance Carrasquillo MD [facility] PROCEDURES Final Result from Last 3 Months Insurance MEDICARE [facility] MEDICARE [facility] MEDICARE [facility] FEDERAL Advance Directives For more information, please contact: [phone] * Full Code (Latest Code Status on File) Date Activated Date Inactivated Comments 03/18/2019 2:27 PM 03/19/2019 6:43 PM Care Teams Fishery Division Chief Relationship Specialty Start Date End Date Dickson Land MD [address] [facility] [address] [place] [address] PCP - General Family Medicine 01/27/19 Dionicio Carrasquillo MD [address] [facility] [address] [place] [address] Surgeon Surgery 03/05/23
--- OUTSIDE RECORDS SUMMARY | 2024-11-15 10:10 | XMS_ITS ---
Author Organization [facility] O perating A Address [address] [address] Care Team Providers Care Care Aide Name Role Phone EmeryWilmanDickson Primary Care Provider WASHINGTON Li Unavailable [phone] REASON FOR VISIT Physician Oversight Encounters Encounter Location Date Provider Diagnosis [facility] [address] [facility] [address] [address] 09/28/2024 WASHINGTON KENNY Plan Of Treatment Next Appt Details Provider Name:WASHINGTON KENNY, 0 11/22/2024 09:45:00 AM, [address] [facility], [place], [address], Progress Notes * ARMEN CUNNINGHAMDOB:[birth year] (84 yo M)Acc No.[id number]:09/28/2024 Patient: ARMEN LEMUS :1940 A ge:84 Y S ex:Male Address:[address] [place] [address] * true * Date: Generated for Stephanyi nohemy/Analia/eTransmitting on: 0 11/15/2024 11:10 AM EDT
--- OUTSIDE RECORDS SUMMARY | 2024-11-15 10:11 | XMS_ITS | Encounter Summary ---
Author Organization [facility] Address [address] [place] [address] Care Team Providers Care Sound Cutter Name Role Phone Dickson Land MD Primary Care Provider Dionicio Carrasquillo MD Unavailable [phone] Encounter Details Date Type Department Care Team (Late st Contact Info) Description 08/13/2023 Telephone [facility] at [facility] [address] [facility] [address] [place] [address] Dionicio Carrasquillo MD [address] [place] [address] Social History Tobacco Use Types Packs/Day Years [...] on filedocumented in this encounter Care Teams Sound Cutter Relationship Specialty Start Date End Date Dickson Land MD [address] [facility] [address] [facility] [address] [place] [address] PCP - General Family Medicine 01/27/19 Dionicio Carrasquillo MD [address] [facility] [address] [place] [address] Surgeon Surgery 03/05/23 documented as of this encounter
--- OUTSIDE RECORDS SUMMARY | 2024-11-15 10:11 | XMS_ITS | Clinical Summary ---
Author Organization [facility] Address [address] [place] [address] Care Team Providers Care International Affairs Vice President Name Role Phone Dickson Land MD Primary Care Provider [phone] Allergies No known active allergies Medications allopurinol [...] as needed. Indications: Allergic Conjunctivitis 03/05/20 Active [place]-3 Fatty Acids (FISH OIL) 1200 MG Cap [...] Diagnosed Date ESRD (end stage renal disease) ([facility]) 02/26/2022 DELANEY (acute kidney injury) 02/26/2022 Hypotension 02/26/2022 NSTEMI (non-ST elevated myoc ardial infarction) ([facility]) 02/04/2022 Stage 4 chronic kidney disease ([facility]) 07/26/2021 Immunizations Name Administration Dates Next Due Fluzone [...] Comments Blood Pressure 79/60 08/02/2024 4:40 AM TENDER LABOR Pulse 99 08/02/2024 4:40 AM TENDER LABOR Temperature 36.1 C (97 F) 08/02/2024 4:40 AM TENDER LABOR Respiratory Rate 16 08/02/2024 4:40 AM TENDER LABOR Oxygen Saturation 100% 08/02/2024 4:40 AM TENDER LABOR Inhaled Oxygen Concentration - - Weight 108.1 kg (238 lb 5.1 oz) 08/02/2024 2:48 AM TENDER LABOR Height 188 cm (6' 2 ) 08/02/2024 2:48 AM TENDER LABOR Body Mass Index 30.6 08/02/2024 2:48 AM TENDER LABOR Plan of Treatment Health Maintenance Due Date Last Done Comments Annual Medicare Wellness Visit 2006 RSV Immunization or 60+ Years (1 - 1-dose 75+ series) 2016 ASCVD LDL 02/04/2023 02/04/2022, 0910/2020, 11/27/2020, Additional history exists COVID-19 Vaccine ( [...] this topic Medical Devices Implanted Type Area Licensing Manager Device Identifier Shelf Expiration Date Model / Serial / Lot Arrow Next Step Retrograde Hemodialysis Catheter Implanted:Qty: 1 on 02/11/2022 by Kelton Palm MD at [facility] Catheter Implant Right: Neck [employer] [id number] 08/23/2024 -[id number] -[id number] / / [id number] Description:Right internal j ugular Procedures Procedure Name Priority Date/Time Associated Diagnosis Comments LIPID PANEL Routine 02/04/2022 6:40 AM CDT from Last 3 Months or Most Recently Relevant to Health Maintenance Results * (ABNORMAL) LIPID PANEL (02/04/2022 6:40 AM CDT) CHOLESTEROL 119 <200 MG/DL 02/04/2022 7:24 AM CDT [facility] TRIGLYCERIDES 130 <150 MG/DL 02/04/2022 7:[address] [facility] HDL 31(L) >40.0 MG/DL 02/04/2022 7:[address] [facility] LDL (CALCULATED) 62 <100 MG/DL 02/05/20 7:[address] [facility] NON HDL CHOLESTEROL 88 <130 MG/DL 02/04 7:[address] [facility] CHOL/HDL RATIO 3.8 0.0 - 4.5 02/04/2022 7:[address] [facility] VLDL CALCULATION 26 5 - 55 MG/DL 02/04/2022 7:[address] [facility] LIPID INTERPRETATION 02/04/2022 7:[address] [facility] Comment: [facility] CONCENSUS REPORT RECOMMENDATIONS: ADULT CHILD LOW RISK: CHOLESTEROL <200 <170 TRIGLYCERIDE <150 --- HDL >=60 --- LDL <100 <110 BORDERLINE: CHOLESTEROL 200-239 170-199 TRIGLYCERIDE 150-199 --- HDL 40-59 --- LDL 100-159 110-129 HIGH RISK: CHOLESTEROL >=240 >=200 TRIGLYCERIDE >=200 --- HDL <40 --- LDL >=160 >=130 02/04/2022 6:40 AM CDT Maria M Ott DO LABORATORY Final Result [facility] [address] [place] [address], [place] [phone] from Last 3 Months or Most Recently Relevant to Health Maintenance Insurance MEDICARE [facility] Advance Directives Documents on File Type Date Recorded Patient Wool Broker Expl anation Power of Manager Quality Systems * Full Code (Latest Code Status on File) Date Activated Date Inactivated Comments 03/24/2022 6:02 PM 07/13/2022 6:40 AM * Full Code Date Activated Date Inactivated Comments 02/04/2022 3:44 PM 02/21/2022 5:01 PM * DNR Date Activated Date Inactivated Comments 02/04/2022 2:37 AM 02/04/2022 3:44 PM Care Teams International Affairs Vice President Relationship Specialty Start Date End Date Dickson Land MD [address] [place] [address] PCP - General FAMILY PRACTICE 03/25/19
--- OUTSIDE RECORDS SUMMARY | 2024-11-15 10:11 | XMS_ITS | Encounter Summary ---
Author Organization [facility] Healthcare Address [address] [place] [address] Care Team Providers Care Porcelain Technician Name Role Phone Dickson Land MD Primary Care Provider Dionicio Carrasquillo MD Unavailable [phone] Encounter Details Date Type Department Care Team (Late st Contact Info) Description 12/08/2023 [facility] [address] [facility] [address] [place] [address] Dionicio Carrasquillo MD [address] [place] [address] Social History Tobacco Use Types Packs/Day Years [...] on filedocumented in this encounter Care Teams Porcelain Technician Relationship Specialty Start Date End Date Dickson Land MD [address] [facility] [address] [facility] [address] [place] [address] PCP - General Family Medicine 01/27/19 Dionicio Carrasquillo MD [address] [facility] [address] [place] [address] Surgeon Surgery 03/05/23 documented as of this encounter
--- OUTSIDE RECORDS SUMMARY | 2024-11-15 10:11 | XMS_ITS | Encounter Summary ---
Author Organization [facility] Healthcare Address [address] [place] [address] Care Team Providers Care Lidding Machine Operator Name Role Phone Dickson Land MD Primary Care Provider Dionicio Carrasquillo MD Unavailable [phone] Encounter Details Date Type Department Care Team (Late st Contact Info) Description 07/03/2023 Telephone [facility] [address] [facility] [address] [place] [address] Lance Carrasquillo MD [address] [place] [address] [address] [place] [address] Social History Tobacco Use Types Packs/Day Years [...] on filedocumented in this encounter Care Teams Lidding Machine Operator Relationship Specialty Start Date End Date Dickson Land MD [address] [facility] [address] [facility] [address] [place] [address] PCP - General Family Medicine 01/27/19 Dionicio Carrasquillo MD [address] [facility] [address] [place] [address] Surgeon Surgery 03/05/23 documented as of this encounter
--- OUTSIDE RECORDS SUMMARY | 2024-11-15 10:11 | XMS_ITS | Encounter Summary ---
Author Organization [facility] Healthcare Address [address] [place] [address] Care Team Providers Care Certified Personal Finance Counselor Name Role Phone Dickson Land MD Primary Care Provider Dionicio Carrasquillo MD Unavailable [phone] Encounter Details Date Type Department Care Team (Late st Contact Info) Description 02/04/2023 Telephone [facility] Medical Office Building [address] [address] Dionicio Carrasquillo MD [address] [place] [address] Social History Tobacco Use Types Packs/Day Years [...] on filedocumented in this encounter Care Teams Certified Personal Finance Counselor Relationship Specialty Start Date End Date Dickson Land MD [address] [facility] [address] [facility] [address] [place] [address] PCP - General Family Medicine 01/27/19 Dionicio Carrasquillo MD [address] [facility] [address] [place] [address] Surgeon Surgery 03/05/23 documented as of this encounter
--- OUTSIDE RECORDS SUMMARY | 2024-11-15 10:11 | XMS_ITS | Encounter Summary ---
Author Organization [facility] Healthcare Address [address] [place] [address] Care Team Providers Care Sr. Unix System Administrator Name Role Phone Dickson Land MD Primary Care Provider Dionicio Carrasquillo MD Unavailable Encounter Details Date Type Department Care Team (Late st Contact Info) Description 02/06/2024 Orders Only [facility] Health Information Management [address] [place] [address] Scanning, Provider Social History Tobacco Use Types [...] on filedocumented in this encounter Care Teams Sr. Unix System Administrator Relationship Specialty Start Date End Date Dickson Land MD [address] [place] [address] PCP - General Family Medicine 01/27/19 Dionicio Carrasquillo MD [address] [facility] [address] [place] [address] Surgeon Surgery 03/05/23 documented as of this encounter
--- OUTSIDE RECORDS SUMMARY | 2024-11-15 10:11 | XMS_ITS | Encounter Summary ---
Author Organization [facility] Healthcare Address [address] [place] [address] Care Team Providers Care Inspector Assembly Name Role Phone Dickson Land MD Primary Care Provider Dionicio Carrasquillo MD Unavailable [phone] Encounter Details Date Type Department Care Team (Late st Contact Info) Description 03/21/2019 Documentation [facility] Case Management [address] [place] [address] Opal Crawley RN Social History Tobacco Use [...] on filedocumented in this encounter Care Teams Inspector Assembly Relationship Specialty Start Date End Date Dickson Land MD [address] [place] [address] PCP - General Family Medicine 01/27/19 Dionicio Carrasquillo MD [address] [facility] [address] [place] [address] Surgeon Surgery 03/05/23 documented as of this encounter
--- OUTSIDE RECORDS SUMMARY | 2024-11-15 10:11 | XMS_ITS | Encounter Summary ---
Author Organization [facility] Healthcare Address [address] [place] [address] Care Team Providers Care Machine Designer Name Role Phone Dickson Land MD Primary Care Provider Dionicio Carrasquillo MD Unavailable Encounter Details Date Type Department Care Team (Late st Contact Info) Description 04/06/2024 Telephone [facility] at [facility] [address] [facility] [address] [place] [address] Dionicio Carrasquillo MD [address] [place] [id number] Social History Tobacco Use Types Packs/Day Years [...] on filedocumented in this encounter Care Teams Machine Designer Relationship Specialty Start Date End Date Dickson Land MD [address] [facility] [address] [facility] [address] [place] [address] PCP - General Family Medicine 01/27/19 Dinoicio Carrasquillo MD [address] [facility] [address] [place] [address] Surgeon Surgery 03/05/23 documented as of this encounter
== END 2024-11-15 09:14 | disposition home or self-care (01) ==
LOC: ANHIMG 09:14
PROVIDERS: Radiology Diagnostic Radiology; PCP Family Medicine; Visit Provider Nurse Practitioner Family
DX: K74.60 Unspecified cirrhosis of liver (principal); R18.8 Other ascites
CPT/HCPCS: 36415; 49083; 85049; 85610

== ENCOUNTER 2024-12-08 10:09 | Outpatient (CLI) | payer MEDICARE, BC, SELFPAY ==
--- NOTE | ~2024-12-08 | US_ITS ---
EXAMINATION: US paracentesis abd w/image DATE: 12/08/2024 10:55 INDICATION: Ascites. TECHNIQUE: The procedure and its risks and benefits were discussed with the patient. Potential risks discussed included bleeding and infection. The skin was prepped and draped in sterile fashion. 1% lid ocaine was used for local anesthesia. Under ultrasound guidance, a 5 Fr catheter with trochar was adv anced into the ascites in the left lower quadrant. Fluid was aspirated into vacuum bottles. The cole ter was removed, and a dressing was applied. There were no immediate complications. FINDINGS: Ultrasound images demonstrate ascites and the catheter within the fluid. IMPRESSION: 1. Successful ultrasound-guided paracentesis yielding 5000 mL of yellowish-brown fluid. Reviewed, dictated and finalized at location A. IMPRESSION: 1. Successful ultrasound-guided paracentesis yielding 5000 mL of yellowish-bro wn fluid.
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
--- OUTSIDE RECORDS SUMMARY | 2024-12-08 10:50 | XMS_ITS | Clinical Summary ---
Author Organization [facility] Address [address] [place] [address] Phone Care Team Providers Care Syrup Maker Cook Name Role Phone Dickson Land MD Primary Care Provider [phone] Allergies No known active allergies Medications allopurinol (ZYLOPRIM) 300 MG tablet 12/08/2020 Active [...] (01/28/2021): Added automatically from request for surgery [id number] Immunizations Immunization Administration Dates Next Due Sars-cov-2, Unspecified 12/01/2020 [...] at Not on file Legal Sex Male 12:47 PM MDT Gender Identity Not on file Sexual Orientation [...] and Medium Risk (2 of 3 - PPSV23) 02/26/2017 02/27/2016 Influenza Vaccine (Season Ended) 2025 05/31/2019, 05/25/2018, 08/07/2016 Insurance MEDICARE [facility] Care Teams Syrup Maker Cook Relationship Specialty Start Date End Date Dickson Land MD [address] [facility] [address] [place] [id number] PCP - General Internal Medicine 12/28/20
--- OUTSIDE RECORDS SUMMARY | 2024-12-08 10:50 | XMS_ITS | Referral Summary ---
Author Organization [facility] Address [facility] [place] [address] Care Team Providers Care Parts Order And Stock Clerk Name Role Phone Dickson Land MD Primary Care Provider Dionicio Carrasquillo MD Unavailable [phone] Encounters Date Type Department Care Team Description 11/03/2024 Telephone [facility] Cardiology [address] [place] [address] Angel Chow MD 09/20/2024 11:30 AM SHARE DAIRY FARMER Office Visit [facility] Otolaryngology [address] [facility] 1st [address], [address] [place] [address] Ravi Palm II, MD Sensorineural hearing loss (SNHL) of both ears (Primary Dx); Bilateral impacted cerumen 09/19/2024 Telephone [facility] Dialysis Access Center at [facility] [address] [place] [address] Malka Woo NP Updating medication list 09/13/2024 7:50 AM SHARE DAIRY FARMER - 09/13/2024 11:59 PM SHARE DAIRY FARMER Hospital Encounter [facility] Dialysis Access Center at [facility] [address] [place] [address] ESRD (end stage renal disease) on dialysis (HCC) (Primary Dx); Other complication of arteriovenous dialysis fistula, initial encounter; Hyperlipidemia LDL goal <70; Essential hypertension Discharge Disposition: Discharge to home or self care 09/13/2024 7:50 AM SHARE DAIRY FARMER - 09/13/2024 11:59 PM SHARE DAIRY FARMER Hospital Encounter [facility] Medical Office Building [address] [place] [address] ESRD (end stage renal disease) on dialysis (HCC); Other complication of arteriovenous dialysis fistula, initial encounter Discharge Disposition: Discharge to home or self care from Last 3 Months Allergies No known [...] 5 mg tabletIndicatio ns:PAF (paroxysmal atrial fibrillation) ([facility]) Take 0.5 tablets (2.5 mg total) by [...] 20 mg tabletIndicatio ns:Coronary artery disease of [place] artery of [place] heart with stable angina pectoris Take 1 tablet (20 mg total) by mouth daily 90 tablet 1 5 Active Active Problems Problem Noted Date Diagnosed Date Cardiomyopathy 08/31/2024 Nonrheumatic mitral valve regurgitation 08/31/19 25 ESRD (end stage renal disease) on dialysis 12/03 Overview (12/03/2022): Added automatically from request for surgery [id number] Assessment & Plan (09/13/2024 9:37 AM SHARE DAIRY FARMER): Patient is currently dialyzing through a right [...] proceed. Assessment & Plan (09/15/2023 3:15 PM SHARE DAIRY FARMER): Impression: Patient is being dialyzed through a [...] dialysis. Assessment & Plan (08/11/2023 1:31 PM SHARE DAIRY FARMER): Dialyzing through a right brachiocephalic fistula. States [...] any decrease in sensory motor has strong steward/stewardess lounge his hand is warm. He denies any [...] 03/10/2022 Assessment & Plan (08/11/2023 1:32 PM SHARE DAIRY FARMER): Chronic controlled. Continue amiodarone Dizziness 01/27/2022 Sensorineural hearing loss (SNHL) of both ears 0 12/03/2021 Bilateral lower extremity edema 07/26/2021 Essential hypertension 04/09/2021 Assessment & Plan (09/13/2024 9:32 AM SHARE DAIRY FARMER): Patient's blood pressure is now mostly labile and hypotensive. Continue midodrine as per his physician. Assessment & Plan (2024 10:49 AM CDT): Continue antihypertensives Assessment & Plan (09/15/2023 3:16 PM SHARE DAIRY FARMER): Impression: Chronic and stable. Plan: Continue metoprolol Assessment & Plan (08/11/2023 1:24 PM SHARE DAIRY FARMER): metoprolol Hyperlipidemia LDL goal <70 04/09/2021 Assessment & Plan (09/13/2024 9:31 AM SHARE DAIRY FARMER): Controlled. Continue Lipitor Assessment & Plan (2024 10:49 AM CDT): Continue Lipitor Assessment & Plan (09/15/2023 3:16 PM SHARE DAIRY FARMER): Impression: Chronic stable. Plan: Continue atorvastatin Assessment & Plan (08/11/2023 1:32 PM SHARE DAIRY FARMER): Continue Lipitor Coronary artery disease of [place] artery of [place] heart with stable angina pectoris 04/09/2021 Bilateral impacted cerumen 03/05/2021 Chronic eczematous otitis externa of left ear Erectile dysfunction 02/17/2019 Overview (02/17/2019): Added automatically from request for surgery [id number] Resolved Problems Problem Noted Date Diagnosed Date [...] Comments Blood Pressure 78/56 09/13/2024 8:39 AM SHARE DAIRY FARMER Asymptomatic: states BP has been running on low side, denies any symptoms at this time. Pulse 60 09/13/2024 8:39 AM SHARE DAIRY FARMER Temperature 36.7 C (98 F) 09/20/2024 12:22 PM SHARE DAIRY FARMER Respiratory Rate 22 04/12/2024 10:3 0 AM CDT Oxygen Saturation 100% 09/13/2024 8:3 9 AM SHARE DAIRY FARMER Inhaled Oxygen Concentration - - Weight 95.3 kg (210 lb) 09/20/2024 12:2 2 PM SHARE DAIRY FARMER Height 188 cm (6' 2 ) 09/20/2024 12:22 PM SHARE DAIRY FARMER Body Mass Index 26.96 09/20/2024 12:22 PM SHARE DAIRY FARMER Plan of Treatment Not on file Medical Devices Implanted Type Area Business Manager Device Identifier Shelf Expiration Date Model / Serial / Lot Coloplast Lux [id number] Titan Lock-Out Inflatable Self Contain Fluid Fill Tube Standard Latex Free - Sn/A - [id number] Implanted:Qty: 1 on 03/18/2019 by Angel Kiran MD at [facility] Other - see comments N/A: Penis Coloplast Lux 09/20/2023 [id number] / N/A / [id number] Description:PENIAL PROSTHESI S Coloplast Lux [id number] Titan Coloplast Lock-Out Inflatable Self Contain Fluid Fill Valve Latex Free - Sn/A - [id number] Implanted:Qty: 1 on 03/18/2019 by Angel Kiran MD at [facility] Other - see comments N/A: Penis Coloplast Lux 10/07/2023 [id number] / N/A / [id number] Description:PENILE PROSTHESI S Coloplast Lux [id number] Pros 0d Cyl 20cm Penile Ttn Otr Scrotum - Sn/A - [id number] Implanted:Qty: 1 on 03/18/2019 by Angel Kiran MD at [facility] Other - see comments N/A: Penis Coloplast Lux 11/29/2023 [id number] / N/A / [id number] Description:PENILE PROSTHESI S Stent Heart Description:x2 Procedures Procedure Name Priority Date/Time Associated Diagnosis Comments US HEMODIALYSIS ACCESS Schedule Routine, Read Routine (OP Routine) 09/13/2024 8:32 AM SHARE DAIRY FARMER ESRD (end stage renal disease) on dialysis (HCC) Other complication of arteriovenous dialysis fistula, initial encounter from Last 3 Months Results * US Hemodialysis Access (09/13/2024 8:32 AM SHARE DAIRY FARMER) Anatomical Region Laterality Modality Vascular N/A Ultrasound 09/13/2024 Narrative 09/16/2024 8:16 AM SHARE DAIRY FARMER Amphion Job ID: [id number] Amphion Document ID: [id number] Dictated date/time: [id number] RIGHT UPPER EXTREMITY HEMODIALYSIS DUPLEX REASON FOR [...] suggestive of stenosis. Job ID/Internal Job ID: [id number] us Lance Carrasquillo MD [facility] PROCEDURES Final Result from Last 3 [place] [address] [facility] MEDICARE [facility] MEDICARE [facility] Advance Directives For more information, please contact: [phone] * Full Code (Latest Code Status on File) Date Activated Date Inactivated Comments 03/18/2019 2:27 PM 03/19/2019 6:43 PM Care Teams Parts Order And Stock Clerk Relationship Specialty Start Date End Date Dickson Land MD [address] [facility] [address] [facility] [address] [place] [address] PCP - General Family Medicine 01/27/19 Dionicio Carrasquillo MD [address] [facility] [address] [place] [address] Surgeon Surgery 03/05/23
--- OUTSIDE RECORDS SUMMARY | 2024-12-08 10:51 | XMS_ITS | Encounter Summary ---
Author Organization [facility] Healthcare Address [address] [place] [address] Care Team Providers Care Lung Puller Name Role Phone Dickson Land MD Primary Care Provider Dionicio Carrasquillo MD Unavailable [phone] Encounter Details Date Type Department Care Team (Late st Contact Info) Description 02/06/2024 Orders Only [facility] Health Information Management [address] [place] [address] Scanning, Provider Social History Tobacco Use Types [...] on filedocumented in this encounter Care Teams Lung Puller Relationship Specialty Start Date End Date Dickson Land MD [address] [facility] [address] [place] [address] PCP - General Family Medicine 01/27/19 Dionicio Carrasquillo MD [address] [facility] [address] [place] [address] Surgeon Surgery 03/05/23 documented as of this encounter
--- OUTSIDE RECORDS SUMMARY | 2024-12-08 10:51 | XMS_ITS | Clinical Summary ---
Author Organization [facility] Address [address] [place] [address] Care Team Providers Care Pharmacologist Name Role Phone Dickson Land MD Primary Care Provider [phone] Allergies No known active allergies Medications allopurinol [...] as needed. Indications: Allergic Conjunctivitis 03/05/20 Active [place]-3 Fatty Acids (FISH OIL) 1200 MG Cap [...] Diagnosed Date ESRD (end stage renal disease) ([facility]) 02/26/2022 DELANEY (acute kidney injury) 02/26/2022 Hypotension 02/26/2022 NSTEMI (non-ST elevated myoc ardial infarction) ([facility]) 02/04/2022 Stage 4 chronic kidney disease ([facility]) 07/26/2021 Immunizations Immunization Administration Dates Next Due Fluzone High Dose [...] Comments Blood Pressure 79/60 08/02/2024 4:40 AM FERMENTATION OPERATOR Pulse 99 08/02/2024 4:40 AM FERMENTATION OPERATOR Temperature 36.1 C (97 F) 08/02/2024 4:40 AM FERMENTATION OPERATOR Respiratory Rate 16 08/02/2024 4:40 AM FERMENTATION OPERATOR Oxygen Saturation 100% 08/02/2024 4:40 AM FERMENTATION OPERATOR Inhaled Oxygen Concentration - - Weight 108.1 kg (238 lb 5.1 oz) 08/02/2024 2:48 AM FERMENTATION OPERATOR Height 188 cm (6' 2 ) 08/02/2024 2:48 AM FERMENTATION OPERATOR Body Mass Index 30.6 08/02/2024 2:48 AM FERMENTATION OPERATOR Plan of Treatment Health Maintenance Due Date Last Done Comments Annual Medicare Wellness Visit 2006 RSV Immunization or 60+ Years (1 - 1-dose 75+ series) 2016 ASCVD LDL 02/04/2023 02/04/2022, 10/2020, 11/27/2020, Additional history exists COVID-19 Vaccine ( season) 2024 01/24/2022, 07/22/2021, 12/11/2020, Additional history exists DTaP, Tdap and Td Vaccines (2 - Td or Tdap) 12/02/2028 12/02/2018 Zoster Vaccines Completed 08/23/2018, 05/25/2018 Pneumococcal Vaccine: 50+ Years Completed 12/02/2018, 02/27/2016 Meningococcal B Vaccine Aged Out No l onger eligible based on patient's age to complete this topic Meningococcal Vaccine Aged Out No dakot[place] stephon eligible based on patient's age to complete this topic RSV Immunizations Under 20 Months Aged Out No longer eligible based on patient's age to complete this topic Medical Devices Implanted Type Area Mail Machine Operator Device Identifier Shelf Expiration Date Model / Serial / Lot Arrow Next Step Retrograde Hemodialysis Catheter Implanted:Qty: 1 on 02/11/2022 by Kelton Palm MD at [facility] Catheter Implant Right: Neck [employer] [id number] 08/23/2024 [id number] / / [id number] Description:Right internal j ugular Procedures Procedure Name Priority Date/Time Associated Diagnosis Comments LIPID PANEL Routine 02/04/2022 6:40 AM CDT from Last 3 Months or Most Recently Relevant to Health Maintenance Results * (ABNORMAL) LIPID PANEL (02/04/2022 6:40 AM CDT) CHOLESTEROL 119 <200 MG/DL 02/04/2022 7:24 AM CDT [facility] TRIGLYCERIDES 130 <150 MG/DL 02/04/2022 7:24 AM CDT [facility] HDL 31(L) >40.0 MG/DL 02/04/2022 7:24 AM CDT [facility] LDL (CALCULATED) 62 <100 MG/DL 02/05/20 7:24 AM CDT [facility] NON HDL CHOLESTEROL 88 <130 MG/DL 02/04 7:24 AM CDT [facility] CHOL/HDL RATIO 3.8 0.0 - 4.5 02/04/2022 7:24 AM CDT [facility] VLDL CALCULATION 26 5 - 55 MG/DL 02/04/2022 7:24 AM CDT [facility] LIPID INTERPRETATION 02/04/2022 7:24 AM CDT [facility] Comment: NIH CONCENSUS REPORT RECOMMENDATIONS: ADULT CHILD LOW RISK: CHOLESTEROL <200 <170 TRIGLYCERIDE <150 --- HDL >=60 --- LDL <100 <110 BORDERLINE: CHOLESTEROL 200-239 170-199 TRIGLYCERIDE 150-199 --- HDL 40-59 --- LDL 100-159 110-129 HIGH RISK: CHOLESTEROL >=240 >=200 TRIGLYCERIDE >=200 --- HDL <40 --- LDL >=160 >=130 02/04/2022 6:40 AM CDT Maria M Ott DO LABORATORY Final Result [facility] [address] [place] [address], [place] [phone] from Last 3 Months or Most Recently Relevant to Health Maintenance Insurance MEDICARE [facility] Advance Directives Documents on File Type Date Recorded Patient Neurophysiological Technician Expl anation Power of Compressor Technician * Full Code (Latest Code Status on File) Date Activated Date Inactivated Comments 03/24/2022 6:02 PM 07/13/2022 6:40 AM * Full Code Date Activated Date Inactivated Comments 02/04/2022 3:44 PM 02/21/2022 5:01 PM * DNR Date Activated Date Inactivated Comments 02/04/2022 2:37 AM 02/04/2022 3:44 PM Care Teams Pharmacologist Relationship Specialty Start Date End Date Dickson Land MD [address] [facility] [address] [place] [address] PCP - General FAMILY PRACTICE 03/25/19
--- OUTSIDE RECORDS SUMMARY | 2024-12-08 10:51 | XMS_ITS | Encounter Summary ---
Author Organization [facility] Address [address] [place] [address] Care Team Providers Care Slot Floorman Name Role Phone Dickson Ladn MD Primary Care Provider [phone] Reason for Visit * Reason Onset Date Comments A-FIB 08/02/[address] Steward's group Dialysis management 08/02/2024 Spoke w/Van at Dr. Larsen' jarrod Encounter Details Date Type Department Care Team (Late st Contact Info) Description 08/02/2024 Telephone [facility] Admitting [address] [place] [address] [place] [address] [place] [address] A-FIB (RECUPYL chat to Dr. Steward'juan manuel group); Dialysis [...] Pathogen 08/02/2024 08/02/2024 08/03/2024 6 :30 AM FOOTWEAR SALES COORDINATOR R/O C. diff 08/04/2024 08/04/2024 08/05/2024 7:00 AM FOOTWEAR SALES COORDINATOR documented as of this encounter Care Teams Slot Floorman Relationship Specialty Start Date End Date Dickson Land MD [address] [facility] [address] [place] [address] PCP - General Family Practice 04/17/22 documented as of this encounter
--- OUTSIDE RECORDS SUMMARY | 2024-12-08 10:51 | XMS_ITS | Encounter Summary ---
Author Organization [facility] Healthcare Address [address] [place] [address] Care Team Providers Care Fast Food Worker Name Role Phone Dickson Land MD Primary Care Provider Dionicio Carrasquillo MD Unavailable [phone] Encounter Details Date Type Department Care Team (Late st Contact Info) Description 02/04/2023 Telephone [facility] Medical Office Building [address] [address] Dionicio Carrasquillo MD [address] [place] [address] Social History Tobacco Use Types Packs/Day Years [...] on filedocumented in this encounter Care Teams Fast Food Worker Relationship Specialty Start Date End Date Dickson Land MD [address] [facility] [address] [facility] [address] [place] [address] PCP - General Family Medicine 01/27/19 Dionicio Carrasquillo MD [address] [facility] [address] [place] [address] Surgeon Surgery 03/05/23 documented as of this encounter
--- OUTSIDE RECORDS SUMMARY | 2024-12-08 10:51 | XMS_ITS | Encounter Summary ---
Author Organization [facility] Healthcare Address [address] [place] [address] Care Team Providers Care Training Officer Name Role Phone Dickson Land MD Primary Care Provider Dionicio Carrasquillo MD Unavailable [phone] Encounter Details Date Type Department Care Team (Late st Contact Info) Description 12/08/2023 Telephone [facility] D[facility] Access Center at [facility] [address] [facility] [address] [place] [address] Dionicio Carrasquillo MD [address] [place] [address] Social History Tobacco Use Types Packs/Day Years [...] on filedocumented in this encounter Care Teams Training Officer Relationship Specialty Start Date End Date Dickson Land MD [address] [facility] [address] [facility] 120 [place] [address] PCP - General Family Medicine 01/27/19 Dionicio Carrasquillo MD [address] [facility] [address] [place] [address] Surgeon Surgery 03/05/23 documented as of this encounter
--- OUTSIDE RECORDS SUMMARY | 2024-12-08 10:51 | XMS_ITS | Encounter Summary ---
Author Organization [facility] Healthcare Address [address] [place] [address] Care Team Providers Care Greenhouse Staff Name Role Phone Dickson Land MD Primary Care Provider Dionicio Carrasquillo MD Unavailable [phone] Encounter Details Date Type Department Care Team (Late st Contact Info) Description 04/06/2024 Telephone [facility] at [facility] [address] [facility] [address] [place] [address] Dionicio Carrasquillo MD [address] [place] [address] Social History Tobacco Use Types Packs/Day Years [...] on filedocumented in this encounter Care Teams Greenhouse Staff Relationship Specialty Start Date End Date Dickson Land MD [address] [facility] [address] [facility] [address] [place] [address] PCP - General Family Medicine 01/27/19 Dionicio Carrasquillo MD [address] [facility] [address] [place] [address] Surgeon Surgery 03/05/23 documented as of this encounter
--- OUTSIDE RECORDS SUMMARY | 2024-12-08 10:51 | XMS_ITS | Encounter Summary ---
Author Organization [facility] Healthcare Address [address] [place] [address] Care Team Providers Care Dry Wall Plasterer Name Role Phone Dickson Land MD Primary Care Provider Dionicio Carrasquillo MD Unavailable [phone] Encounter Details Date Type Department Care Team (Late st Contact Info) Description 07/03/2023 Telephone [facility] D[facility] Access Center at [facility] [address] [facility] [address] [place] [address] Lance Carrasquillo MD [address] [place] [address] [address] [place] [address] Social History Tobacco Use Types Packs/Day Years [...] on filedocumented in this encounter Care Teams Dry Wall Plasterer Relationship Specialty Start Date End Date Dickson Land MD [address] [facility] [address] [facility] [address] [place] [address] PCP - General Family Medicine 01/27/19 Dionicio Carrasquillo MD [address] [facility] [address] [place] [address] Surgeon Surgery 03/05/23 documented as of this encounter
--- OUTSIDE RECORDS SUMMARY | 2024-12-08 10:51 | XMS_ITS | Encounter Summary ---
Author Organization [facility] Healthcare Address [address] [place] [address] Care Team Providers Care Director Of Clinical Applications Name Role Phone Dickson Land MD Primary Care Provider Dionicio Carrasquillo MD Unavailable [phone] Encounter Details Date Type Department Care Team (Late st Contact Info) Description 03/21/2019 Documentation [facility] Case Management [address] [place] [address] Opal Crawley RN Social History Tobacco Use [...] on filedocumented in this encounter Care Teams Director Of Clinical Applications Relationship Specialty Start Date End Date Dickson Land MD [address] [place] [address] PCP - General Family Medicine 01/27/19 Dionicio Carrasquillo MD [address] [facility] [address] [place] [address] Surgeon Surgery 03/05/23 documented as of this encounter
--- OUTSIDE RECORDS SUMMARY | 2024-12-08 10:51 | XMS_ITS | Clinical Summary ---
Author Organization [facility] Address [address] [place] [address] Care Team Providers Care Assistant Store Manager Trainee Name Role Phone Dickson Land MD Primary Care Provider [phone] Allergies No known active allergies Medications colchicine [...] Active Fluticasone Furoate (FLONASE SENSIMIST) 27.5 mcg/actuation [facility], Suspension Administer 1 spray into each nostril [...] Encounters Date Type Department Care Team Description 11/22/2024 External Device Data ST[facility] ABSTRACTION Provider, Abstract 11/09/2024 External Device Data ST[facility] ABSTRACTION Provider, Abstract 10/31/2024 External Device Data ST[facility] ABSTRACTION Provider, Abstract 10/29/2024 External Device Data STL ABSTRACTION Provider, Abstract 10/28/2024 External Device Data [facility] ABSTRACTION Provider, Abstract 10/11/2024 External Device Data STL ABSTRACTION Provider, Abstract 09/15/2024 External Device Data ST[facility] ABSTRACTION Provider, Abstract from Last 3 Months Family History Medical [...] Comments Blood Pressure 80/44 08/25/2024 9:00 AM LAND APPRAISER Pulse 63 08/25/2024 8:43 AM LAND APPRAISER Temperature 36.7 C (98 F) 08/10/2024 7:33 AM LAND APPRAISER Respiratory Rate 19 08/10/2024 12:59 PM LAND APPRAISER Oxygen Saturation 96% 08/25/2024 8:43 AM LAND APPRAISER Inhaled Oxygen Concentration - - Weight 99.8 kg (220 lb) 08/25/2024 8:43 AM LAND APPRAISER Height 188 cm (6' 2 ) 08/25/2024 8:43 AM LAND APPRAISER Body Mass Index 28.25 08/25/2024 8:43 AM LAND APPRAISER Plan of Treatment Health Maintenance Due Date Last Done Comments Traditional Medicare (ACO) A nnual Wellness Visit 1959 RSV VACCINE (60+ or ) (1 - 1-dose 75+ series) 2016 INFLUENZA VACCINE (#1) 2024 05/25/2021, 2019 DTAP/TDAP/TD VACCINES (2 - Td or Tdap) 12/02/2028 ZOSTER VACCINE Completed 08/23/2018, 05/25/2018 PNEUMOCOCCAL VACCINE 50+ YEARS Completed 12/02/2018 , 02/27/2016 Insurance MEDICARE PART A AND B [facility] [employer] MEDICARE PART A AND B [facility] [employer] Advance Directives For more information, please contact: [phone] * NO CPR (In Event of Cardiopulmonary [...] 6:07 AM 08/02/2024 6:40 AM Care Teams Assistant Store Manager Trainee Relationship Specialty Start Date End Date Dickson Land MD [address] [place] [phone] PCP - General Family Practice 04/17/22
--- OUTSIDE RECORDS SUMMARY | 2024-12-08 10:51 | XMS_ITS | Encounter Summary ---
Author Organization [facility] Healthcare Address [address] [place] [address] Care Team Providers Care Marketing Systems Analyst Name Role Phone Dickson Land MD Primary Care Provider Dionicio Carrasquillo MD Unavailable [phone] Encounter Details Date Type Department Care Team (Late st Contact Info) Description 08/13/2023 Telephone [facility] at [facility] [address] [facility] [address] [place] [address] Dionicio Carrasquillo MD [address] [place] [address] Social History Tobacco Use Types Packs/Day Years [...] on filedocumented in this encounter Care Teams Marketing Systems Analyst Relationship Specialty Start Date End Date Dickson Land MD [address] [facility] [address] [facility] 120 [place] [address] PCP - General Family Medicine 01/27/19 Dionicio Carrasquillo MD [address] [facility] [address] [place] [address] Surgeon Surgery 03/05/23 documented as of this encounter
--- OUTSIDE RECORDS SUMMARY | 2024-12-08 10:51 | XMS_ITS | Clinical Summary ---
Author Organization [facility] Address [address] [place] [address] Care Team Providers Care Head Strength And Conditioning Coach Name Role Phone Dickson Land MD Primary Care Provider [phone] Source Comments [facility],non-owned Affiliates and Associated Physician Practices is amultiple site organization consisting of ambulatory clinics and hospital sitesin [place], [place], [place] and [place]. This disclosure is being madepursuant to the Care Everywhere program and may not contain all information available regarding this patient. Last updated 18.[facility] Social History Tobacco Use Types Packs/Day Years Used Date Smoking Tobacco: Never Assessed Sex and Gender Information Value Date Recorded Sex Assigned at Not on file Legal Sex Male 6:37 AM CDT Gender Identity Not on file [...] VACCINE ( - 2023-2 5 season) 2024 DEPRESSION SCREENING 08/24/2024 INFLUENZA VACCINE (Season Ended) 2025 05/31/2019, 05/25/2018, 08/07/2016 HIB VACCINE Aged Out No longer eligi [...] on patient's age to complete this topic Insurance [facility] MEDICARE Care Teams Head Strength And Conditioning Coach Relationship Specialty Start Date End Date Dickson Land MD [address] [place] [address] PCP - General Family Medicine 03/30/24
== END 2024-12-08 10:10 | disposition home or self-care (01) ==
LOC: ANHIMG 10:10
PROVIDERS: PCP Family Medicine; Visit Provider Nurse Practitioner Family
DX: R18.8 Other ascites (principal); K74.60 Unspecified cirrhosis of liver
CPT/HCPCS: 49083

== ENCOUNTER 2024-12-30 12:52 | Outpatient (CLI) | payer MEDICARE, BC, SELFPAY ==
--- NOTE | ~2024-12-30 | US_ITS ---
EXAMINATION: US paracentesis abd w/image DATE: 12/30/2024 14:43 INDICATION: Ascites. TECHNIQUE: The procedure and its risks and benefits were discussed with the patient. Potential risks discussed included bleeding and infection. The skin was prepped and draped in sterile fashion. 1% lid ocaine was used for local anesthesia. Under ultrasound guidance, a 5 Fr catheter with trochar was adv anced into the ascites in the left lower quadrant. Fluid was aspirated into vacuum bottles. The cole ter was removed, and a dressing was applied. There were no immediate complications. FINDINGS: Ultrasound images demonstrate ascites and the catheter within the fluid. IMPRESSION: 1. Successful ultrasound-guided paracentesis yielding 3400 mL of light brown-colored fluid. Reviewed, dictated and finalized at location A. IMPRESSION: 1. Successful ultrasound-guided paracentesis yielding 3400 mL of light brown-c olored fluid.
--- OUTSIDE RECORDS SUMMARY | 2024-12-30 12:55 | XMS_ITS | Patient Health Record ---
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 WORKING WITH MARKETING EDITOR ON SCHEDULING, I SPOKE WITH THE PATIENT REGARDING SCHEDULING, AND HE EXPRESSED UNCERTAINTY ABOUT THE SERVICE. HE MENTIONED THAT HIS DOCTOR HAD ALSO REFERRED HIM ELSEWHERE AND ASKED TO FOLLOW UP WITH HIM ON SEPTEMBER 09, 2024., I SPOKE WITH THE PATIENT REGARDING SCHEDULING AND HE IS STILL UNDECIDED REQUEST FOR ME TO FOLLOW UP WITH HIM 25, KIARA MEJIA 09/12/2024 01:29:33 PM >, ALONZO QUINONES 09/20/2024 04:49:44 PM > PATIENT ADMITTED TO PC Referral Priority Routine Medications Medication SIG (Take, Route, Frequency, Duration) Notes Start Date End Date Status Atorvastatin Calcium 20 MG TAKE 1 TABLET BY MOUTH ONCE DAILY Oral Active Eliquis 5 MG TAKE 1 TABLET BY STEPHANIE TH TWICE DAILY Oral Active Amiodarone HCl 200 MG TAKE 1 TABLET BY M OUTH TWICE DAILY Oral Active Gabapentin 300 MG TAKE 1 CAPSULE BY MO UTH IN THE MORNING Oral for 90 Days Active Lactulose 10 GM/15ML TAKE 30ML(2 TABLESPOONSFUL) BY MOUTH TWICE DAILY FOR CONSTIPATION Oral Active Allopurinol 300 MG 1/2 tablet Oral Active Sevelamer Carbonate 800 MG 2 tablet with meals Orally Three times a day Active Midodrine HCl 10 MG Oral three times a day Active Social History Tobacco Use: Social History Observation Description Date Details (start date - stop date) Never Smoker NA - NA Tobacco Use/Smoking Question Answer Notes Are you a nonsmoker Problems Problem Type SNOMED Code ICD Code Onset Dates Problem Status W/U Status Risk Notes Problem Hypertensive heart AND chronic kidney disease with congestive heart failure (19845350772096) 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, or end stage renal disease (I13.2) Active confirmed Problem Biventricular congestive heart failure (64786744) 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) Active confirmed Problem Cirrhosis of liver (35682555) Cirrhosis of liver (K74.60) Active confirmed Problem [id number] Afib (I48.91) Active confirmed Vital Signs Heart Rate 60 /min 12/06/2024 Temperature 97.1 degrees Fahrenheit 12/06/2024 Respiratory Rate 16 /min 12/06/2024 Oximetry 90 % 12/06/2024 Blood pressure diastolic 54 mm Hg 12/06/2024 Blood pressure systolic 90 mm Hg 12/06/2024 Encounters Encounter Location Date Provider Diagnosis [address] [address] 09/20/2024 WASHINGTON ZOYA 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, or end stage renal disease I13.2 ; Biventricular heart failure I50.82 ; Edema, peripheral R60.9 and Cirrhosis of liver K74.[address] [place] [address] 10/18/2024 WASHINGTON ZOYA 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, or end stage renal disease I13.2 ; Biventricular heart failure I50.82 ; Edema, peripheral R60.9 ; Cirrhosis of liver K74.60 ; Encounter for palliative care Z51.5 and Inguinal hernia K40.[address] [place] [address] 11/22/2024 WASHINGTON ZOYA Biventricular heart failure I50.82 ; Cirrhosis of liver K74.60 ; Encounter for palliative care Z51.5 ; 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, or end stage renal disease I13.2 ; Afib I48.91 ; Hypotension I95.9 and Edema, peripheral R60.0 [facility] [address] [place] [address] 12/06/2024 WASHINGTON ZOYA Biventricular heart failure I50.82 ; Cirrhosis of liver K74.60 ; Encounter for palliative care Z51.5 ; Afib I48.91 and Hypotension I95.9 [facility] [address] [place] [address] 09/28/2024 WASHINGTON ZOYA Assessments Encounter Date Diagnosis [...] end stage renal disease (ICD-10 - I13.2) 11/22/2024 Biventricular heart failure (ICD-10 - I50.82) Continue follow up with nicu rn as scheduled Notify provider if there are any changes in symptoms 11/22/2024 Cirrhosis of liver (ICD-10 - K74.60) 12/06/2024 Biventricular heart failure (ICD-10 - I50.82) Continue all medications Low sodium diet along with fluid restriction Follow up with nicu rn 12/06/2024 Cirrhosis of liver (ICD-10 - K74.60) Continue medications Continue paracentesis as scheduled 11/22/2024 Encounter for palliative care (ICD-10 - Z51.5) PPS 70% DNR 12/06/2024 Encounter for palliative care (ICD-10 - Z51.5) PPS 70% DNR 09/20/2024 Biventricular heart failure (ICD-10 - I50.82) Continue medications as ordered Follow up with cardiology as scheduled 10/18/2024 Biventricular heart failure (ICD-10 - I50.82) Continue medications as ordered Follow up with cardiology as scheduled 10/18/2024 Edema, peripheral (ICD-10 - R60.9) Continue to wear compression socks Watch salt in diet Keep feet/legs elevated when sitting 11/22/2024 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, or end stage renal disease (ICD-10 - I13.2) 12/06/2024 Afib (ICD-10 - I48.91) 09/20/2024 Edema, peripheral (ICD-10 - R60.9) Continue to wear compression socks Watch salt in diet Keep feet/legs elevated when sitting 10/18/2024 Cirrhosis of liver (ICD-10 - K74.60) Continue follow up with GI 09/20/2024 Cirrhosis of liver (ICD-10 - K74.60) Continue follow up with GI 12/06/2024 Hypotension (ICD-10 - I95.9) 11/22/2024 Afib (ICD-10 - I48.91) 11/22/2024 Hypotension (ICD-10 - I95.9) Continue medication Blood pressure chronically low Keep blood pressure log; notify provider if if goes below baseline 80;s /50s 10/18/2024 Encounter for palliative care (ICD-10 - Z51.5) 10/18/2024 Inguinal hernia (ICD-10 - K40.90) 11/22/2024 Edema, peripheral (ICD-10 - R60.0) Plan Of Treatment Next Appt Details Provider Name:WASHINGTON KENNY, 0 01/03/2025 10:30:00 AM, [address], [place], [address], Insurance Providers Payer Name Payer Address Payer Phone Subscriber Number Group Number Insured Name Patient Relationship to Insured Coverage Start Date Coverage End Date [employer] [place] [address] [address] [place] [address] [id number] ARMEN CUNNINGHAM Self - patient is the insured Medical (General) History Medical History History ICD Code Hypertensive heart and chron ic kidney disease with heart failure and with stage 5 chronic kidney disease, or end stage renal disease I13.2 Biventricular heart failure I50.82 cirrhosis neuropathy Atrial fibrillation Peripheral edema Surgical History Surgery Date(Month/Year) fistula right arm appendectomy nephrectomy left Hospitalization History Reason Date(Month/Year) heart failure 07/2024 nephrectomy 2020
--- OUTSIDE RECORDS SUMMARY | 2024-12-30 12:55 | XMS_ITS | Referral Summary ---
Author Organization [facility] Address [address] [place] [address] Care Team Providers Care Envelope Addresser Name Role Phone Dicksno Land MD Primary Care Provider Dionicio Carrasquillo MD Unavailable [phone] Encounters Date Type Department Care Team Description 11/03/2024 Telephone [facility] Cardiology [address] [place] [address] Angel Chow MD from Last 3 Months Allergies No known [...] (12/03/2022): Added automatically from request for surgery [id number] Assessment & Plan (09/13/2024 9:37 AM JOB ANALYST): Patient is currently dialyzing through a right [...] proceed. Assessment & Plan (09/15/2023 3:15 PM JOB ANALYST): Impression: Patient is being dialyzed through a [...] dialysis. Assessment & Plan (08/11/2023 1:31 PM JOB ANALYST): Dialyzing through a right brachiocephalic fistula. 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 He denies any [...] 03/10/2022 Assessment & Plan (08/11/2023 1:32 PM JOB ANALYST): Chronic controlled. Continue amiodarone Dizziness 01/27/2022 Sensorineural hearing loss (SNHL) of both ears 0 12/03/2021 Bilateral lower extremity edema 07/26/2021 Essential hypertension 04/09/2021 Assessment & Plan (09/13/2024 9:32 AM JOB ANALYST): Patient's blood pressure is now mostly labile and hypotensive. Continue midodrine as per his physician. Assessment & Plan (2024 10:49 AM CDT): Continue antihypertensives Assessment & Plan (09/15/2023 3:16 PM JOB ANALYST): Impression: Chronic and stable. Plan: Continue metoprolol Assessment & Plan (08/11/2023 1:24 PM JOB ANALYST): metoprolol Hyperlipidemia LDL goal <70 04/09/2021 Assessment & Plan (09/13/2024 9:31 AM JOB ANALYST): Controlled. Continue Lipitor Assessment & Plan (2024 10:49 AM CDT): Continue Lipitor Assessment & Plan (09/15/2023 3:16 PM JOB ANALYST): Impression: Chronic stable. 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 Pulse 60 09/13/2024 8:39 AM JOB ANALYST Temperature 36.7 C (98 F) 09/20/2024 12:22 PM JOB ANALYST Respiratory Rate 22 04/12/2024 10:3 0 AM CDT Oxygen Saturation 100% 09/13/2024 8:3 9 AM JOB ANALYST Inhaled Oxygen Concentration - - Weight 95.3 kg (210 lb) 09/20/2024 12:2 2 PM JOB ANALYST Height 188 cm (6' 2 ) 09/20/2024 12:22 PM JOB ANALYST Body Mass Index 26.96 09/20/2024 12:22 PM JOB ANALYST Plan of Treatment Not on file Medical Devices Implanted Type Area Inspector Eyeglass Device Identifier Shelf Expiration Date Model / Serial / Lot Coloplast Lux [id number] Titan Lock-Out Inflatable Self Contain Fluid Fill Tube Standard Latex Free - Sn/A - [id number] Implanted:Qty: 1 on 03/18/2019 by Angel Kiran MD at [facility] Other - see comments N/A: Penis Coloplast Lux 09/20/2023 [id number] / N/A / [id number] Description:PENIAL PROSTHESI S Coloplast Lux [id number] Titan Coloplast Lock-Out Inflatable Self Contain Fluid Fill Valve Latex Free - Sn/A - [id number] Implanted:Qty: 1 on 03/18/2019 by Angel Kiran MD at [facility] Other - see comments N/A: Penis Coloplast Lux 10/07/2023 [id number] / N/A / [id number] Description:PENILE PROSTHESI S Coloplast Lux [id number] Pros 0d Cyl 20cm Penile Ttn Otr Scrotum - Sn/A - [id number] Implanted:Qty: 1 on 03/18/2019 by Angel Kiran MD at [facility] Other - see comments N/A: Penis Coloplast Lux 11/29/2023 [id number] / N/A / [id number] Description:PENILE PROSTHESI S Stent Heart Description:x2 Insurance MEDICARE [facility] MEDICARE [facility] Address: [address] [place] [id number] [facility] MEDICARE [facility] Advance Directives For more information, please contact: [phone] * Full Code (Latest Code Status on File) Date Activated Date Inactivated Comments 03/18/2019 2:27 PM 03/19/2019 6:43 PM Care Teams Envelope Addresser Relationship Specialty Start Date End Date Dickson Land MD [address] [facility] [address] [place] [address] PCP - General Family Medicine 01/27/19 Dionicio Carrasquillo MD [address] [place] [address] [address] Surgeon Surgery 03/05/23
--- OUTSIDE RECORDS SUMMARY | 2024-12-30 12:55 | XMS_ITS | Clinical Summary ---
Author Organization [facility] Address [address] [place] [address] Care Team Providers Care Extrusion Supervisor Name Role Phone Dickson Land MD Primary Care Provider [phone] Allergies No known active allergies Medications colchicine [...] Active Fluticasone Furoate (FLONASE SENSIMIST) 27.5 mcg/actuation [place], Suspension Administer 1 spray into each nostril [...] Encounters Date Type Department Care Team Description 12/27/2024 External Device Data [facility] ABSTRACTION Provider, Abstract 11/22/2024 External Device Data [facility]STRACTION Provider, [...] No 08/02/2024 Food Insecurity Answer Date Recorded Patient needs follow up regardin 12/15/2024 Transportation Needs Answer Date Record ed Patient needs follow up regardin 12/15/2024 Housing Stability Answer Date Recorded Social/Environmental Concerns No concerns Utility Needs Answer Date Recorded Patient needs follow up regardin 12/15/2024 Sex and Gender Information Value Date Recorded Sex Assigned at Not on file Legal Sex Male 3:00 PM CDT Gender Identity Not on file Sexual Orientation Not on file Last Filed Vital Signs Vital Sign Reading Time Taken Comments Blood Pressure 80/44 08/25/2024 9:00 AM ORTHODONTIC LAB TECHNICIAN Pulse 63 08/25/2024 8:43 AM ORTHODONTIC LAB TECHNICIAN Temperature 36.7 C (98 F) 08/10/2024 7:33 AM ORTHODONTIC LAB TECHNICIAN Respiratory Rate 19 08/10/2024 12:59 PM ORTHODONTIC LAB TECHNICIAN Oxygen Saturation 96% 08/25/2024 8:43 AM ORTHODONTIC LAB TECHNICIAN Inhaled Oxygen Concentration - - Weight 99.8 kg (220 lb) 08/25/2024 8:43 AM ORTHODONTIC LAB TECHNICIAN Height 188 cm (6' 2 ) 08/25/2024 8:43 AM ORTHODONTIC LAB TECHNICIAN Body Mass Index 28.25 08/25/2024 8:43 AM ORTHODONTIC LAB TECHNICIAN Plan of Treatment Health Maintenance Due Date Last Done Comments RSV VACCINE (60+ or ) (1 - 1-dose 75+ series) 2016 INFLUENZA VACCINE (#1) 2024 05/25/2021, 2019 DTAP/TDAP/TD VACCINES (2 - Td or Tdap) 12/02/2028 ZOSTER VACCINE Completed 08/23/2018, 05/25/2018 PNEUMOCOCCAL VACCINE 50+ YEARS Completed 12/02/2018 , 02/27/2016 Insurance MEDICARE PART A AND B [facility] [employer] MEDICARE PART A AND B [facility] Advance Directives For more information, please contact: [phone] * NO CPR (In Event of Cardiopulmonary [...] 6:07 AM 08/02/2024 6:40 AM Care Teams Extrusion Supervisor Relationship Specialty Start Date End Date Dickson Land MD [address] [facility] [address] [place] [address] PCP - General Family Practice 04/17/22
--- OUTSIDE RECORDS SUMMARY | 2024-12-30 12:55 | XMS_ITS | Encounter Summary ---
Author Organization [facility] Address [address] [place] [address] Care Team Providers Care Dinkey Mechanic Name Role Phone Dickson Land MD Primary Care Provider [phone] Reason for Visit * Reason Onset Date Comments A-FIB 08/02/2024 [employer] secure chat to Dr. Steward's group Dialysis management 08/02/2024 Spoke w/Van at Dr. Larsen' jarrod Encounter Details Date Type Department Care Team (Late st Contact Info) Description 08/02/2024 Telephone [facility] Admitting [address] [place] [address] [place] [address] [place] [address] A-FIB ([employer] Private chat to Dr. Steward'juan manuel group); Dialysis [...] Pathogen 08/02/2024 08/02/2024 08/03/2024 6 :30 AM CANCELING AND CUTTING CONTROL CLERK R/O C. diff 08/04/2024 08/04/2024 08/05/2024 7:00 AM CANCELING AND CUTTING CONTROL CLERK documented as of this encounter Care Teams Dinkey Mechanic Relationship Specialty Start Date End Date Dickson Land MD [address] [facility] [address] [place] [address] PCP - General Family Practice 04/17/22 documented as of this encounter
--- OUTSIDE RECORDS SUMMARY | 2024-12-30 12:55 | XMS_ITS | Clinical Summary ---
Author Organization [facility] Address [address] [place] [id number] Phone Care Team Providers Care Radiation Control Technician Name Role Phone Dickson Land MD Primary Care Provider [phone] Allergies No known active allergies Medications allopurinol [...] (01/28/2021): Added automatically from request for surgery [id number] Immunizations Immunization Administration Dates Next Due Sars-cov-2, [...] Ended) 2025 05/31/2019, 05/25/2018, 08/07/2016 Insurance MEDICARE [facility] Care Teams Radiation Control Technician Relationship Specialty Start Date End Date Dickson Land MD [address] [facility] [address] [place] [id number] PCP - General Internal Medicine 12/28/20
--- OUTSIDE RECORDS SUMMARY | 2024-12-30 12:55 | XMS_ITS | Clinical Summary ---
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 Assessment & Plan (09/15/2023 3:15 PM MANAGER LATIN): Impression: Patient is being dialyzed through a [...] dialysis. Assessment & Plan (08/11/2023 1:31 PM MANAGER LATIN): Dialyzing through a right brachiocephalic fistula. 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 He denies any [...] 03/10/2022 Assessment & Plan (08/11/2023 1:32 PM MANAGER LATIN): Chronic controlled. Continue amiodarone Dizziness 01/27/2022 Sensorineural hearing loss (SNHL) of both ears 0 12/03/2021 Bilateral lower extremity edema 07/26/2021 Essential hypertension 04/09/2021 Assessment & Plan (09/13/2024 9:32 AM MANAGER LATIN): Patient's blood pressure is now mostly labile and hypotensive. Continue midodrine as per his physician. Assessment & Plan (2024 10:49 AM CDT): Continue antihypertensives Assessment & Plan (09/15/2023 3:16 PM MANAGER LATIN): Impression: Chronic and stable. Plan: Continue metoprolol Assessment & Plan (08/11/2023 1:24 PM MANAGER LATIN): metoprolol Hyperlipidemia LDL goal <70 04/09/2021 Assessment & Plan (09/13/2024 9:31 AM MANAGER LATIN): Controlled. Continue Lipitor Assessment & Plan (2024 10:49 AM CDT): Continue Lipitor Assessment & Plan (09/15/2023 3:16 PM MANAGER LATIN): Impression: Chronic stable. 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 04/09/2021 Bilateral impacted cerumen 03/05/2021 Chronic eczematous otitis externa of left ear Erectile dysfunction 02/17/2019 Overview (02/17/2019): Added automatically from request for surgery [id number] Resolved Problems Problem Noted Date Diagnosed Date Resolved Date CKD (chronic kidney disease) stage 4, GFR 15-29 ml/min 07/26/2021 09/15/2023 Class 2 obesity due to exces s calories without serious comorbidity with body mass index (BMI) of 36.0 to 36.9 in adult 04/09/2021 Urologic disorder 04/04/2019 04/04/2019 Encounters Date Type Department Care Team Description 11/03/2024 Telephone [facility] Medical [facility] Cardiology [address] [place] [address] Angel Chow MD from Last 3 Months Immunizations Immunization Administration Dates Next Due Sars-CoV-2, Unspecified 12/01/2020 Surgical History Surgery Date Site/Laterality Comments APPENDECTOMY 08/24/1944 - 08/23/1945 TONSILLECTOMY 08/24/1955 - 08/23/1956 KNEE ARTHROSCOPY 08/24/1993 - 08/23/1994 Left CARDIAC STENT PLACEMENT 08/24/2010 - 08/23/2011 x2 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 Palm (removed 07/06/23 - Dr. [...] ED (erectile dysfunction) CKD (chronic kidney disease) CT, old PONV (postoperative nausea and vomiting) Allergic rhinitis Heart attack (HCC) 2010 Hyperlipidemia Cancer (HCC) kidney Obesity Bruises easily Hemodialysis [facility] Ear problems Family History Medical History Relation [...] Comments Blood Pressure 78/56 09/13/2024 8:39 AM MANAGER LATIN Asymptomatic: states BP has been running on low side, denies any symptoms at this time. Pulse 60 09/13/2024 8:39 AM MANAGER LATIN Temperature 36.7 C (98 F) 09/20/2024 12:22 PM MANAGER LATIN Respiratory Rate 22 04/12/2024 10:3 0 AM CDT Oxygen Saturation 100% 09/13/2024 8:3 9 AM MANAGER LATIN Inhaled Oxygen Concentration - - Weight 95.3 kg (210 lb) 09/20/2024 12:2 2 PM MANAGER LATIN Height 188 cm (6' 2 ) 09/20/2024 12:22 PM MANAGER LATIN Body Mass Index 26.96 09/20/2024 12:22 PM MANAGER LATIN Plan of Treatment Health Maintenance Due Date Last Done Comments Depression Screening 1941 Hepatitis B Screening 1959 Well Visit 65+ 2006 Influenza Vaccine (#1) 2024 , 05/31/2019, 05/25/2018, Additional history exists Fall Risk Assessment 04/12/2025 04/12/2024 DTaP/Tdap/Td Vaccine (2 - Td or Tdap) 12/02/2028 12/02/2018 Zoster Vaccine Completed 08/23/2018, 05/25/2018 Pneumococcal vaccine 65+ Completed 12/02/2018, 01/2016 Medical Devices Implanted Type Area Deliverer Merchandise Device Identifier Shelf Expiration Date Model / Serial / Lot Coloplast Lux [id number] Titan Lock-Out Inflatable Self Contain Fluid Fill Tube Standard Latex Free - Sn/A - [id number] Implanted:Qty: 1 on 03/18/2019 by Angel Kiran MD at [facility] Other - see comments N/A: Penis Coloplast Lux 09/20/2023 [id number] / N/A / [id number] Description:PENIAL PROSTHESI S Coloplast Lux [id number] Titan Coloplast Lock-Out Inflatable Self Contain Fluid Fill Valve Latex Free - Sn/A - [id number] Implanted:Qty: 1 on 03/18/2019 by Angel Kiran MD at [facility] Other - see comments N/A: Penis Coloplast Lux 10/07/2023 [id number] / N/A / [id number] Description:PENILE PROSTHESI S Coloplast Lux [id number] Pros 0d Cyl 20cm Penile Ttn Otr Scrotum - Sn/A - [id number] Implanted:Qty: 1 on 03/18/2019 by Angel Kiran MD at [facility] Other - see comments N/A: Penis Coloplast Lux 11/29/2023 [id number] / N/A / [id number] Description:PENILE PROSTHESI S Stent Heart Description:x2 Insurance MEDICARE [facility] MEDICARE COUNTS INCLUDE 234 BEDS AT THE [facility] MEDICARE [facility] Advance Directives For more information, please contact: [phone] * Full Code (Latest Code Status on File) Date Activated Date Inactivated Comments 03/18/2019 2:27 PM 03/19/2019 6:43 PM Care Teams Laborer Cheesemaking Relationship Specialty Start Date End Date Dickson Land MD [address] [address] PCP - General Family Medicine 01/27/19 Dionicio Carrasquillo MD [address] [facility] [address] [address] Surgeon Surgery 03/05/23
--- OUTSIDE RECORDS SUMMARY | 2024-12-30 12:55 | XMS_ITS | Clinical Summary ---
Author Organization [facility] Address [address] [place] [address] Care Team Providers Care Press Washer Name Role Phone Dickson Land MD Primary Care Provider [phone] Source Comments [facility],non-owned Affiliates and Associated Physician Practices is amultiple site organization consisting of ambulatory clinics and hospital sitesin [place], [place], [place] and [place]. This disclosure is being madepursuant to the Care Everywhere program and may not contain all information available regarding this patient. Last updated 18.[facility] [employer] Social History Tobacco Use Types Packs/Day Years [...] patient's age to complete this topic Insurance [facility] MEDICARE Care Teams Press Washer Relationship Specialty Start Date End Date Dickson Land MD [address] [facility] [address] [place] [address] PCP - General Family Medicine 03/30/24
--- OUTSIDE RECORDS SUMMARY | 2024-12-30 12:57 | XMS_ITS | Encounter Summary ---
Author Organization [facility] Healthcare Address [address] [place] [address] Care Team Providers Care Community Service Director Name Role Phone Dickson Land MD Primary Care Provider Dionicio Carrasquillo MD Unavailable [phone] Encounter Details Date Type Department Care Team (Late st Contact Info) Description 03/21/2019 Documentation [facility] Case Management [address] [place] [address] Opal Crawley RN Social History Tobacco Use [...] on filedocumented in this encounter Care Teams Community Service Director Relationship Specialty Start Date End Date Dickson Land MD [address] [place] [address] PCP - General Family Medicine 01/27/19 Dionicio Carrasquillo MD [address] [facility] [address] [place] [address] Surgeon Surgery 03/05/23 documented as of this encounter
--- OUTSIDE RECORDS SUMMARY | 2024-12-30 12:57 | XMS_ITS | Clinical Summary ---
Author Organization [facility] Address [address] [place] [address] Care Team Providers Care District Plant Supervisor Name Role Phone Dickson Land MD Primary Care Provider [phone] Allergies No known active allergies Medications allopurinol [...] as needed. Indications: Allergic Conjunctivitis 03/05/20 Active Aurora-3 Fatty Acids (FISH OIL) 1200 MG Cap [...] Diagnosed Date ESRD (end stage renal disease) ([facility]) 02/26/2022 DELANEY (acute kidney injury) 02/26/2022 Hypotension 02/26/2022 NSTEMI (non-ST elevated myoc ardial infarction) ([facility]) 02/04/2022 Stage 4 chronic kidney disease ([facility]) 07/26/2021 Immunizations Immunization Administration Dates Next Due [...] Comments Blood Pressure 79/60 08/02/2024 4:40 AM MOTOR ELECTRICIAN Pulse 99 08/02/2024 4:40 AM MOTOR ELECTRICIAN Temperature 36.1 C (97 F) 08/02/2024 4:40 AM MOTOR ELECTRICIAN Respiratory Rate 16 08/02/2024 4:40 AM MOTOR ELECTRICIAN Oxygen Saturation 100% 08/02/2024 4:40 AM MOTOR ELECTRICIAN Inhaled Oxygen Concentration - - Weight 108.1 kg (238 lb 5.1 oz) 08/02/2024 2:48 AM MOTOR ELECTRICIAN Height 188 cm (6' 2 ) 08/02/2024 2:48 AM MOTOR ELECTRICIAN Body Mass Index 30.6 08/02/2024 2:48 AM MOTOR ELECTRICIAN Plan of Treatment Health Maintenance Due Date [...] this topic Medical Devices Implanted Type Area Press Tender Smoke Signal Device Identifier Shelf Expiration Date Model / Serial / Lot Arrow Next Step Retrograde Hemodialysis Catheter Implanted:Qty: 1 on 02/11/2022 by Kelton Palm MD at [facility] Catheter Implant Right: Neck [employer] [id number] 08/23/2024 [id number] / / [id number] Description:Right internal j ugular Procedures Procedure Name Priority Date/Time Associated Diagnosis Comments LIPID PANEL Routine 02/04/2022 6:40 AM CDT from Last 3 Months or Most Recently Relevant to Health Maintenance Results * (ABNORMAL) LIPID PANEL (02/04/2022 6:40 AM CDT) CHOLESTEROL 119 <200 MG/DL 02/04/2022 7:24 AM CDT [facility] TRIGLYCERIDES 130 <150 MG/DL 02/04/2022 7:24 AM CDT [facility] HDL 31(L) >40.0 MG/DL 02/04/2022 7:24 AM CDT [facility] LDL (CALCULATED) 62 <100 MG/DL 02/05/20 7:24 AM CDT [facility] NON HDL CHOLESTEROL 88 <130 MG/DL 02/04 7:24 AM CDT [facility] CHOL/HDL RATIO 3.8 0.0 - 4.5 02/04/2022 7:24 AM CDT [facility] VLDL CALCULATION 26 5 - 55 MG/DL 02/04/2022 7:24 AM CDT [facility] LIPID INTERPRETATION 02/04/2022 7:24 AM CDT [facility] Comment: [facility] CONCENSUS REPORT RECOMMENDATIONS: ADULT CHILD LOW RISK: CHOLESTEROL <200 <170 TRIGLYCERIDE <150 --- HDL >=60 --- LDL <100 <110 BORDERLINE: CHOLESTEROL 200-239 170-199 TRIGLYCERIDE 150-199 --- HDL 40-59 --- LDL 100-159 110-129 HIGH RISK: CHOLESTEROL >=240 >=200 TRIGLYCERIDE >=200 --- HDL <40 --- LDL >=160 >=130 02/04/2022 6:40 AM CDT Maria M Ott DO LABORATORY Final Result [facility] [address] [place] [address], [place] [phone] from Last 3 Months or Most Recently Relevant to Health Maintenance Insurance MEDICARE [facility] Advance Directives Documents on File Type Date Recorded Patient Head Animal Trainer Expl anation Power of Pharmacy Technician * Full Code (Latest Code Status on File) Date Activated Date Inactivated Comments 03/24/2022 6:02 PM 07/13/2022 6:40 AM * Full Code Date Activated Date Inactivated Comments 02/04/2022 3:44 PM 02/21/2022 5:01 PM * DNR Date Activated Date Inactivated Comments 02/04/2022 2:37 AM 02/04/2022 3:44 PM Care Teams District Plant Supervisor Relationship Specialty Start Date End Date Dickson Land MD [address] [facility] [address] [place] [address] PCP - General FAMILY PRACTICE 03/25/19
--- OUTSIDE RECORDS SUMMARY | 2024-12-30 12:57 | XMS_ITS | Encounter Summary ---
Author Organization [facility] Healthcare Address [address] [place] [address] Care Team Providers Care Farm Rancher Name Role Phone Dickson Land MD Primary Care Provider Dionicio Carrasquillo MD Unavailable [phone] Encounter Details Date Type Department Care Team (Late st Contact Info) Description 02/04/2023 Telephone [facility] Medical Office Building [address] [address] Dionicio Carrasquillo MD [address] [place] [address] Social History Tobacco Use Types Packs/Day Years [...] on filedocumented in this encounter Care Teams Farm Rancher Relationship Specialty Start Date End Date Dickson Ladn MD [address] [facility] [address] [facility] [address] [place] [address] PCP - General Family Medicine 01/27/19 Dionicio Carrasquillo MD [address] [facility] [address] [place] [address] Surgeon Surgery 03/05/23 documented as of this encounter
--- OUTSIDE RECORDS SUMMARY | 2024-12-30 12:57 | XMS_ITS | Encounter Summary ---
Author Organization [facility] Healthcare Address [address] [place] [address] Care Team Providers Care Director Process Improvement Name Role Phone Dickson Land MD Primary Care Provider Dionicio Carrasquillo MD Unavailable [phone] Encounter Details Date Type Department Care Team (Late st Contact Info) Description 02/06/2024 Orders Only [facility] Health Information Management [address] [place] [address] Scanning, Provider Social History Tobacco Use Types [...] filedocumented in this encounter Care Teams Director Process Improvement Relationship Specialty Start Date End Date Dickson Land MD [address] [facility] [address] [place] [address] PCP - General Family Medicine 01/27/19 Dionicio Carrasquillo MD [address] [facility] [address] [place] [address] Surgeon Surgery 03/05/23 documented as of this encounter
--- OUTSIDE RECORDS SUMMARY | 2024-12-30 12:57 | XMS_ITS | Encounter Summary ---
Author Organization [facility] Healthcare Address [address] [place] [address] Care Team Providers Care Supervisor Pipeline Name Role Phone Dickson Land MD Primary Care Provider Dionicio Carrasquillo MD Unavailable [phone] Encounter Details Date Type Department Care Team (Late st Contact Info) Description 04/06/2024 Telephone [facility] D[facility] Access Center at [facility] [address] [facility] [address] [place] [address] Dionicio Carrasquillo MD [address] [place] [address] Social History Tobacco Use Types Packs/Day Years [...] on filedocumented in this encounter Care Teams Supervisor Pipeline Relationship Specialty Start Date End Date Dickson Land MD [address] [facility] [address] [facility] 120 [place] [address] PCP - General Family Medicine 01/27/19 Dionicio Carrasquillo MD [address] [facility] [address] [place] [address] Surgeon Surgery 03/05/23 documented as of this encounter
--- OUTSIDE RECORDS SUMMARY | 2024-12-30 12:57 | XMS_ITS | Encounter Summary ---
Author Organization [facility] Healthcare Address [address] [place] [address] Care Team Providers Care Pipe Connector Name Role Phone Dickson Land MD Primary Care Provider Dionicio Carrasquillo MD Unavailable [phone] Encounter Details Date Type Department Care Team (Late st Contact Info) Description 08/13/2023 Telephone [facility] at [facility] [address] [facility] [address] [place] [address] Dionicio Carrasquillo MD [address] [place] [address] Social History Tobacco Use Types Packs/Day Years [...] on filedocumented in this encounter Care Teams Pipe Connector Relationship Specialty Start Date End Date Dickson Land MD [address] [facility] [address] [facility] [address] [place] [address] PCP - General Family Medicine 01/27/19 Dionicio Carrasquillo MD [address] [facility] [address] [place] [address] Surgeon Surgery 03/05/23 documented as of this encounter
--- OUTSIDE RECORDS SUMMARY | 2024-12-30 12:57 | XMS_ITS | Encounter Summary ---
Author Organization [facility] Healthcare Address [address] [place] [address] Care Team Providers Care Senior Portfolio Analyst Name Role Phone Dickson Land MD Primary Care Provider Dionicio Carrasquillo MD Unavailable Encounter Details Date Type Department Care Team (Late st Contact Info) Description 07/03/2023 Telephone [facility] at [facility] [address] [facility] [address] [place] [address] Lance Carrasquillo MD [address] [place] [address] [address] [place] [address] Social History Tobacco Use Types Packs/Day Years [...] filedocumented in this encounter Care Teams Senior Portfolio Analyst Relationship Specialty Start Date End Date Dickson Land MD [address] [facility] [address] [facility] 120 [place] [address] PCP - General Family Medicine 01/27/19 Dionicio Carrasquillo MD [address] [facility] [address] [place] [address] Surgeon Surgery 03/05/23 documented as of this encounter
--- OUTSIDE RECORDS SUMMARY | 2024-12-30 12:57 | XMS_ITS | Encounter Summary ---
Author Organization [facility] Healthcare Address [address] [place] [address] Care Team Providers Care Surveyor Instrument Assistant Name Role Phone Dickson Land MD Primary Care Provider Dionicio Carrasquillo MD Unavailable [phone] Encounter Details Date Type Department Care Team (Late st Contact Info) Description 12/08/2023 Telephone [facility] D[facility] Access Center at [facility] [address] [facility] [address] [place] [address] Dionicio Carrasquillo MD [address] [place] [address] Social History Tobacco Use Types Packs/Day Years [...] on filedocumented in this encounter Care Teams Surveyor Instrument Assistant Relationship Specialty Start Date End Date Dickson Land MD [address] [facility] [address] [facility] 120 [place] [address] PCP - General Family Medicine 01/27/19 Dionicio Carrasquillo MD [address] [facility] [address] [place] [address] Surgeon Surgery 03/05/23 documented as of this encounter
[2024-12-30 15:17] LABS: Appearance Peritoneal Fluid Hazy (Clear); Color Peritoneal Fluid Yellow (Colorless); Lymphocytes Peritoneal Fluid 19 %; Macrophages Peritoneal Fluid 66 %; Mesothelial Cells Peritoneal Fluid 9 %; Neutrophils Peritoneal Fluid 6 % (0-25); Nucleated Cells Peritoneal Flu 658 /uL (0-500); RBC Peritoneal Fluid 5000 /uL (0-10000); Source Peritoneal Fluid Peritoneal Fluid
[2025-01-03 20:53] LABS: Total Protein Peritoneal Fluid 3.4 g/dL
== END 2024-12-30 12:53 | disposition home or self-care (01) ==
PROVIDERS: PCP Family Medicine; Referring Provider Nurse Practitioner; Visit Provider Nurse Practitioner Family
DX: K74.60 Unspecified cirrhosis of liver (principal); R18.8 Other ascites
CPT/HCPCS: 49083; 84157; 87070; 87075; 87205; 89051

== ENCOUNTER 2025-01-04 05:17 | Emergency (ER) | payer MEDICARE, BC, SELFPAY ==
[2025-01-04] VITALS (11 sets, daily range): BP systolic 83–98; BP diastolic 47–54; PULSE 38–48; RESP 12–22; TEMP 36.4; O2SAT 93–99
--- NOTE | ~2025-01-04 | US_ITS ---
EXAMINATION: US scrotum doppler DATE: 01/04/2025 07:50 INDICATION: Swollen painful metastases post fall TECHNIQUE: Testicular sonogram utilizing grayscale and Doppler COMPARISON: None. FINDINGS: The right testis measures 3.5 x 2.0 x 3.3 cm. The left testis measures 4.0 x 2.3 x 3.3 cm. There is a normal grayscale appearance to the right testis. There is a subtle hypoechoic striated pattern to th e left testis with up to 1.5 mm hypoechoic rim to the left testis which suggests testicular edema and possible small subcapsular hematoma. No evident rupture of the testicular capsule. There is normal v ascular flow to both testes. 5 mm cystic lesion at the hilum of the left testis likely tubular ectasi a of the rete testis. There is a 1.8 x 1.6 x 1.6 cm mass within the head of the right epididymis whic h appears similar in echogenicity and echotexture to the right testis with surrounding but no interna l vascularity on color Doppler which given the history of trauma most likely represents a small intra parenchymal hematoma.. The left epididymis is normal with normal vascular flow. There is no varicocel e. There are moderate sized bilateral hydroceles, anechoic on the right with low level echoes potenti ally related to small amount of hemorrhage on the left. Echogenic shadowing structure deep to the elma tis likely related to reported penile implant. IMPRESSION: 1. Likely left testicular contusion which demonstrates an edematous appearance and thin hypoechoic r im potentially representing small amount of subcapsular hemorrhage. 2. 1.8 x 1.6 x 1.6 cm avascular region within the right epididymis score to the testes potentially re presenting a small hematoma. No internal vascular flow to suggest neoplasm but could consider 6-12 we ek follow-up ultrasound to confirm resolution. 3. Moderate-sized bilateral hydroceles, with tiny hypoechoic foci on the left suggesting small amount of posttraumatic hemorrhage. Reviewed, dictated and finalized at location A. IMPRESSION: 1. Likely left testicular contusion which demonstrates an edematous appearance and thin hypoechoic rim potentially representing small amount of subcapsular h emorrhage. 2. 1.8 x 1.6 x 1.6 cm avascular region within the right epididymis score to the testes potentially representing a small hematoma. No internal vascular flow to suggest neoplasm but could consider 6-12 week follow-up ultrasound to confirm resolution. 3. Moderate-sized bilateral hydroceles, with tiny hypoechoic foci on the left s uggesting small amount of posttraumatic hemorrhage.
--- OUTSIDE RECORDS SUMMARY | 2025-01-04 05:19 | XMS_ITS | Clinical Summary ---
Author Organization [facility] Address [address] [place] [address] Phone Care Team Providers Care Etymology Professor Name Role Phone Dickson Land MD Primary Care Provider [phone] Allergies No known active allergies Medications allopurinol [...] (01/28/2021): Added automatically from request for surgery [id number] Immunizations Immunization Administration Dates Next Due Sars-cov-2, [...] Ended) 2025 05/31/2019, 05/25/2018, 08/07/2016 Insurance MEDICARE [facility] Care Teams Etymology Professor Relationship Specialty Start Date End Date Dickson Land MD [address] [facility] [address] [place] [id number] PCP - General Internal Medicine 12/28/20
--- OUTSIDE RECORDS SUMMARY | 2025-01-04 05:19 | XMS_ITS | Encounter Summary ---
Author Organization [facility] Healthcare Address [address] [place] [address] Care Team Providers Care Industrial Roofer Helper Name Role Phone Dickson Land MD Primary Care Provider Dionicio Carrasquillo MD Unavailable [phone] Encounter Details Date Type Department Care Team (Late st Contact Info) Description 01/03/2025 Telephone [facility] Medical Group Cardiology [address] [place] [address] Angel Chow MD [facility] [place] [id number] Social History Tobacco Use Types Packs/Day Years [...] on file documented as of this encounter Miscellaneous Notes * Telephone Encounter - Carol Reyes MA - 01/03/2025 4:56 PM CDT No appointments available at this time. Will forward to the [facility] to watch for appointments in [place], as well. * Telephone Encounter - Dana Rinaldi RN - 01/03/2025 2:40 PM CDT Spoke with pt, pt states he tripped and fell on his deck, he denies any dizziness or lightheadedness. No injury, did not hit head. Pt reported his BP was low at 60/40 so he took a dose of midodrine, bp now 85/44. Pt continues to deny any symptoms. Pt will continue to monitor bp readings. Pt overduefor a f/u with MAF. Does not want to schedule an appt with one of the nurse practitioners. Will forward to Carol to assist with getting pt a f/u appt with MAF. * Telephone Encounter - Angie Mondragon - 01/03/2025 2:10 PM CDT Pt states he fell on his deck and his BP machine is not working. Wants to know if he should come into get a BP check. Please advise, thank you. Contact: documented in this encounter Plan of Treatment Not on file documented as of this encounter Visit Diagnoses Not on filedocumented in this encounter Care Teams Industrial Roofer Helper Relationship Specialty Start Date End Date Dickson Land MD [address] [facility] 120 [place] [address] PCP - General Family Medicine 01/27/19 Dionicio Carrasquillo MD [address] [facility] [address] [place] [address] Surgeon Surgery 03/05/23 documented as of this encounter
--- OUTSIDE RECORDS SUMMARY | 2025-01-04 05:19 | XMS_ITS ---
Author Organization [facility] A Address [address] [address] Care Team Providers Care Osteopathic Medicine Teacher Name Role Phone LandDickson Primary Care Provider WASHINGTON Li Unavailable [phone] Allergies No Known Allergies REASON FOR VISIT Follow up Medications Medication SIG (Take, Route, Frequency, Duration) Notes Start Date End Date Status Lactulose 10 GM/15ML TAKE 30ML(2 TABLESPOONSFUL) BY MOUTH TWICE DAILY FOR CONSTIPATION Oral Active Allopurinol 300 MG 1/2 tablet Oral Active Amiodarone HCl 200 MG TAKE 1 TABLET BY M OUTH TWICE DAILY Oral Active Eliquis 5 MG TAKE 1 TABLET BY STEPHANIE TH TWICE DAILY Oral Active Atorvastatin Calcium 20 MG TAKE 1 TABLET BY MOUTH ONCE DAILY Oral Active Gabapentin 300 MG TAKE 1 CAPSULE BY MO UTH IN THE MORNING Oral for 90 Days Active Midodrine HCl 10 MG Oral three times a day Active Sevelamer Carbonate 800 MG 2 tablet with meals Orally Three times a day Active Social History Tobacco Use: Social History Observation Description Date Details (start date - stop date) Never Smoker NA - NA Tobacco Use/Smoking Question Answer Notes Are you a nonsmoker Vital Signs Temperature 96.7 degrees Fahrenheit 01/04/20 25 Blood pressure systolic 76 mm Hg 01/04/20 25 Blood pressure diastolic 48 mm Hg 025 Heart Rate 48 /min 01/03/2025 Respiratory Rate 16 /min 01/03/2025 Oximetry 97 % 01/03/2025 Encounters Encounter Location Date Provider Diagnosis [facility] [address] [address] 01/03/2025 WASHINGTON KENNY 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, or end stage renal disease I13.2 ; Biventricular heart failure I50.82 ; Cirrhosis of liver K74.60 ; Afib I48.91 ; Palliative care encounter Z51.5 and Hypotension I95.9 Assessments Encounter Date Diagnosis (ICD Code) Assessment Notes Treatment Notes Treatment Clinical Notes Section Notes 01/03/2025 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, or end stage renal disease (ICD-10 - I13.2) Continue medication Continue dialysis 01/03/2025 Biventricular heart failure (ICD-10 - I50.82) Continue medication Follow up with cardiology as scheduled 01/03/2025 Cirrhosis of liver (ICD-10 - K74.60) Continue medication Continue routine tap 01/03/2025 Afib (ICD-10 - I48.91) 01/03/2025 Palliative care encounter (ICD-10 - Z51.5) DNR PPS 70% 01/03/2025 Hypotension (ICD-10 - I95.9) BP low today Due for midodrine in 1 hr Asymptomatic Call to nephrology to see if dose can be increased daily to20mg TID all days and not only on dialysis days Plan Of Treatment Medication Medication Name Sig Start Date Stop Date Notes Midodrine HCl 10 MG Oral three times a day Sevelamer Carbonate 800 MG 2 tablet with meals Orally Three times a day Treatment Notes Assessment Notes Hypertensive heart and chron ic kidney disease with heart failure and with stage 5 chronic kidney disease, or end stage renal disease Continue medication Continue dialysis Biventricular heart failure Continue medication Follow up with cardiology as scheduled Cirrhosis of liver Continue medication Continue routine tap Palliative care encounter DNR PPS 70% Hypotension BP low today Due for midodrine in 1 hr Asymptomatic Call to nephrology to see if dose can be increased daily to20mg TID all days and not only on dialysis days Next Appt Details Follow Up: 1 month, Reason: Follow up Provider Name:Guadalupe CORTES 01/31/2025 10:30:00 AM, [address], [place], [address], Progress Notes * ARMEN CUNNINGHAMDOB:[birth year] (84 yo M)Acc No.[id number]:01/03/2025 Progress Notes Patient: Savanah JEANNIEARMEN Provider: Priscilla KENNY APN :1940 A ge:84 Y S ex:Male Date:01/03/2025 Address:[address] [facility], [id number] Pcp:Dickson Land Subjective: * Chief Complaints: * F ollow up * HPI: P alliative Care: Follow Up Visit Follow Up: Patient seen in his home for palliative care follow up. He is accompanied by his significant other. He is relaxing in recliner during visit in no visible distress. Biventricular heart disease: reports 25% ejections fraction. Under the care of cardiology. He is not a candidate for surgery. He does not weigh himself daily as he gets weighed every -- at dialysis and report weighing between 90-94kgs. He states that yesterday he was up to 98kgs. End stage renal disease:He only has his right kidney his left one was removed in 2020 due to renal carcinoma. He has a right arm fistula and receives hemodialysis 3 times per week. He also goes to get extra fluid taken off as needed. Liver cirrhosis: non alcohol related. Ascites: has a paracentesis every 3 weeks with removal of about 4-5 liters. Next tap 01/20 Hypotension Chronic issue: asymptomatic Midodrine TID Called to nephrology to see if this can be increased DNR: no desire to change status. Patient seen for follow up for palliative care. . . * ROS: G eneral/Constitutional: Patient D enies, weight gain, fever, lightheadedness. R espiratory: Patient D enies, chest pain, chronic cough, cough, shortness of breath, wheezing. C ardiovascular: Patient D enies, chest pain, dizziness. M usculoskeletal: Patient G eneralized weakness; uses walker or cane during mobilization. * Medical History: * Surgical History: f istula right arm appendectomy nephrectomy left * Hospitalization/Major Diagno stic Procedure: n ephrectomy 2020heart failure 07/2024 * Family History: N o Family History documented.. * Social History: T obacco Use: T obacco Use/Smoking A re you a n onsmoker. S ocial and Economic Needs: S ocial and Economic Needs W hat kind of help do you need at home? Cooking , Has your illness created a financial strain on your family? No, Do you have any concerns related to your family's ability to care for you? No.. * Medications: T akingGabapentin 300 MG Capsule TAKE 1 CAPSULE BY MOUTH IN THE MORNING Oral Allopurinol 300 MG Tablet 1/2 tablet Oral Amiodarone HCl 200 MG Tablet TAKE 1 TABLET BY MOUTH TWICE DAILY Oral Eliquis 5 MG Tablet TAKE 1 TABLET BY MOUTH TWICE DAILY Oral Atorvastatin Calcium 20 MG Tablet TAKE 1 TABLET BY MOUTH ONCE DAILY Oral Midodrine HCl 10 MG Tablet Oral three times a day Sevelamer Carbonate 800 MG Tablet 2 tablet with meals Orally Three times a day Lactulose 10 GM/15ML Solution TAKE 30ML(2 TABLESPOONSFUL) BY MOUTH TWICE DAILY FOR CONSTIPATION Oral Medication List reviewed and reconciled with the patientTaking Gabapentin 300 MG Capsule TAKE 1 CAPSULE BY MOUTH IN THE MORNING Oral Taking Allopurinol 300 MG Tablet 1/2 tablet Oral Taking Amiodarone HCl 200 MG Tablet TAKE 1 TABLET BY MOUTH TWICE DAILY Oral Taking Eliquis 5 MG Tablet TAKE 1 TABLET BY MOUTH TWICE DAILY Oral Taking Atorvastatin Calcium 20 MG Tablet TAKE 1 TABLET BY MOUTH ONCE DAILY Oral Taking Midodrine HCl 10 MG Tablet Oral three times a day Taking Sevelamer Carbonate 800 MG Tablet 2 tablet with meals Orally Three times a day Taking Lactulose 10 GM/15ML Solution TAKE 30ML(2 TABLESPOONSFUL) BY MOUTH TWICE DAILY FOR CONSTIPATION Oral Medication List reviewed and reconciled with the patient * Allergies: N .K.D.A.no[Allergies Verified] Objective: * Vitals: B P:76/48mm Hg, HR:48/min, RR:16/min, Temp:96.7F, Oxygen sat %:97%, PPS:70%, Pain scale:00-10, PX:>6. * Examination: G eneral Examination: GENERAL APPEARANCE: a lert, well hydrated, in no distress, pleasant, well nourished, calm and relaxed, cooperative. PSYCH: c ognitive function intact, cooperative with exam, good eye contact. EYES: W NL. CV: M urmur noted, rate regular and bradycardia noted ,. RESP: W NL, clear to auscultation bilaterally, good air movement. GI: A bdomen slightly distended. SKIN: N o suspicious lesions. EXTREMITIES: T race edema bilateral lower extremities. PERIPHERAL PULSES: R ight arm fistula , Right arm fistula. Assessment: * Assessment: 1. H ypertensive 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, or end stage renal disease - I13.2 (Primary) 2 . B iventricular heart failure - I50.82 3 . C irrhosis of liver - K74.60 4 . A fib - I48.91 5 . P alliative care encounter - Z51.5 6 . H ypotension - I95.9 Plan: * Treatment: 2. B iventricular heart failure Notes: Continue medication Follow up with cardiology as scheduled 3. C irrhosis of liver Notes: Continue medication Continue routine tap 4. P alliative care encounter Notes: DNR PPS 70% 5. H ypotension Continue Midodrine HCl Tablet, 10 MG, Oral, three times a day. Notes: BP low today Due for midodrine in 1 hr Asymptomatic Call to nephrology to see if dose can be increased daily to20mg TID all days and not only on dialysis days 6. O thers Continue Sevelamer Carbonate Tablet, 800 MG, 2 tablet with meals, Orally, Three times a day. * Procedure Codes: * Follow Up: 1 month (Reason: Follow up ) Care Plan: * Problems: * Billing Information: * Visit Code: 99831 Subsequent Home Care 3 (40 mins). 1123F ACP Documented - Non-billable. * Procedure Codes: Care Plan Details* * Sign off status: Completed true * Provider: Priscilla KENNY APN Date: 01/03/2025 Generated for Guadalupe Grant/Kelle on: 01/04/2025 06:19 AM EDT History and Physical Notes * HPI (History of Present Illness) Category Sub-Category Detail Notes Category Not es Palliative Care Advance care planning New Patient Follow Up Visit Follow Up: Patient seen in his home for palliative care follow up. He is accompanied by his significant other. He is relaxing in recliner during visit in no visible distress. Biventricular heart disease: reports 25% ejections fraction. Under the care of cardiology. He is not a candidate for surgery. He does not weigh himself daily as he gets weighed every -- at dialysis and report weighing between 90-94kgs. He states that yesterday he was up to 98kgs. End stage renal disease:He only has his right kidney his left one was removed in 2020 due to renal carcinoma. He has a right arm fistula and receives hemodialysis 3 times per week. He also goes to get extra fluid taken off as needed. Liver cirrhosis: non alcohol related. Ascites: has a paracentesis every 3 weeks with removal of about 4-5 liters. Next tap 01/20 Hypotension Chronic issue: asymptomatic Midodrine TID Called to nephrology to see if this can be increased DNR: no desire to change status. Patient seen for follow up for palliative care. . Post Hospitalization VISIT SUMMARY RN VISIT Urgent Visit Examination Category Sub-Category Detail Notes Category Not es General Examination GENERAL APPEARANCE: alert, w ell hydrated, in no distress, pleasant, well nourished, calm and relaxed, cooperative EYES: WNL CV: Murmur noted, rate r egular and bradycardia noted , RESP: WNL, clear to auscul tation bilaterally, good air movement GI: Abdomen slightly dis tended SKIN: No suspicious lesion s EXTREMITIES: Trace edema bilatera l lower extremities PERIPHERAL PULSES: Right arm fistula , Right arm fistula PSYCH: cognitive function i ntact, cooperative with exam, good eye contact
--- OUTSIDE RECORDS SUMMARY | 2025-01-04 05:19 | XMS_ITS | Referral Summary ---
Author Organization [facility] Address [address] [place] [address] Care Team Providers Care Head Of Sales And Marketing Name Role Phone Dickson Land MD Primary Care Provider Dionicio Carrasquillo MD Unavailable [phone] Encounters Date Type Department Care Team Description 01/03/2025 Telephone [facility] Medical Group Cardiology [address] [place] [address] Angel Chow MD 11/03/2024 Telephone [facility] Cardiology [address] [place] [address] Angel Chow MD from Last [...] 20 mg tabletIndicatio ns:Coronary artery disease of [place] artery of [place] heart with stable angina pectoris Take 1 tablet (20 mg total) by mouth daily 90 tablet 1 5 Active Active Problems Problem Noted Date Diagnosed Date Cardiomyopathy 08/31/2024 Nonrheumatic mitral valve regurgitation 08/31/19 25 ESRD (end stage renal disease) on dialysis 12/03 Overview (12/03/2022): Added automatically from request for surgery [id number] Assessment & Plan (09/13/2024 9:37 AM YARD GOODS SALESPERSON): Patient is currently dialyzing through a right [...] proceed. Assessment & Plan (09/15/2023 3:15 PM YARD GOODS SALESPERSON): Impression: Patient is being dialyzed through a [...] dialysis. Assessment & Plan (08/11/2023 1:31 PM YARD GOODS SALESPERSON): Dialyzing through a right brachiocephalic fistula. States [...] any decrease in sensory motor has strong sole conditioner his hand is warm. He denies any [...] 03/10/2022 Assessment & Plan (08/11/2023 1:32 PM YARD GOODS SALESPERSON): Chronic controlled. Continue amiodarone Dizziness 01/27/2022 Sensorineural hearing loss (SNHL) of both ears 0 12/03/2021 Bilateral lower extremity edema 07/26/2021 Essential hypertension 04/09/2021 Assessment & Plan (09/13/2024 9:32 AM YARD GOODS SALESPERSON): Patient's blood pressure is now mostly labile and hypotensive. Continue midodrine as per his physician. Assessment & Plan (2024 10:49 AM CDT): Continue antihypertensives Assessment & Plan (09/15/2023 3:16 PM YARD GOODS SALESPERSON): Impression: Chronic and stable. Plan: Continue metoprolol Assessment & Plan (08/11/2023 1:24 PM YARD GOODS SALESPERSON): metoprolol Hyperlipidemia LDL goal <70 04/09/2021 Assessment & Plan (09/13/2024 9:31 AM YARD GOODS SALESPERSON): Controlled. Continue Lipitor Assessment & Plan (2024 10:49 AM CDT): Continue Lipitor Assessment & Plan (09/15/2023 3:16 PM YARD GOODS SALESPERSON): Impression: Chronic stable. Plan: Continue atorvastatin Assessment & Plan (08/11/2023 1:32 PM YARD GOODS SALESPERSON): Continue Lipitor Coronary artery disease of n ative artery of [place] heart with stable angina pectoris 04/09/2021 Bilateral impacted cerumen 03/05/2021 Chronic eczematous otitis externa of left ear Erectile dysfunction 02/17/2019 Overview (02/17/2019): Added automatically from request for surgery [id number] Resolved Problems Problem Noted Date Diagnosed Date [...] Comments Blood Pressure 78/56 09/13/2024 8:39 AM YARD GOODS SALESPERSON Asymptomatic: states BP has been running on low side, denies any symptoms at this time. Pulse 60 09/13/2024 8:39 AM YARD GOODS SALESPERSON Temperature 36.7 C (98 F) 09/20/2024 12:22 PM YARD GOODS SALESPERSON Respiratory Rate 22 04/12/2024 10:3 0 AM CDT Oxygen Saturation 100% 09/13/2024 8:3 9 AM YARD GOODS SALESPERSON Inhaled Oxygen Concentration - - Weight 95.3 kg (210 lb) 09/20/2024 12:2 2 PM YARD GOODS SALESPERSON Height 188 cm (6' 2 ) 09/20/2024 12:22 PM YARD GOODS SALESPERSON Body Mass Index 26.96 09/20/2024 12:22 PM YARD GOODS SALESPERSON Plan of Treatment Not on file Medical Devices Implanted Type Area Communications Supervisor Device Identifier Shelf Expiration Date Model / Serial / Lot Coloplast Lux [id number] Titan Lock-Out Inflatable Self Contain Fluid Fill Tube Standard Latex Free - Sn/A - [id number] Implanted:Qty: 1 on 03/18/2019 by Angel Kiran MD at [facility] Other - see comments N/A: Penis Coloplast Lux 09/20/2023 [id number] / N/A / [id number] Description:PENIAL PROSTHESI S Coloplast Lux [id number] Titan Coloplast Lock-Out Inflatable Self Contain Fluid Fill Valve Latex Free - Sn/A - [id number] Implanted:Qty: 1 on 03/18/2019 by Angel Kiran MD at [facility] Other - see comments N/A: Penis Coloplast Lux 10/07/2023 [id number] / N/A / [id number] Description:PENILE PROSTHESI S Coloplast Lux [id number] Pros 0d Cyl 20cm Penile Ttn Otr Scrotum - Sn/A - [id number] Implanted:Qty: 1 on 03/18/2019 by Angel Kiran MD at [facility] Other - see comments N/A: Penis Coloplast Lux 11/29/2023 [id number] / N/A / [id number] Description:PENILE PROSTHESI S Stent Heart Description:x2 Insurance MEDICARE [facility] MEDICARE [facility] * Guarantor: Russ Jimenez Account Type Relation to Patient Date of Phone Billing Address Personal/Family Self 1940 [address] [place] [address] MEDICARE [facility] Advance Directives For more information, please contact: [phone] * Full Code (Latest Code Status on File) Date Activated Date Inactivated Comments 03/18/2019 2:27 PM 03/19/2019 6:43 PM Care Teams Head Of Sales And Marketing Relationship Specialty Start Date End Date Dickson Land MD [address] [facility] [address] [place] [address] PCP - General Family Medicine 01/27/19 Dionicio Carrasquillo MD [address] [place] [address] Surgeon Surgery 03/05/23
--- OUTSIDE RECORDS SUMMARY | 2025-01-04 05:19 | XMS_ITS | Clinical Summary ---
Author Organization [facility] Address [address] [place] [address] Care Team Providers Care Digital Campaign Specialist Name Role Phone Dickson Land MD Primary Care Provider Dionicio Carrasquillo MD Unavailable [phone] Allergies No known active allergies Medications [...] 20 mg tabletIndicatio ns:Coronary artery disease of [place] artery of [place] heart with stable angina pectoris Take 1 tablet (20 mg total) by mouth daily 90 tablet 1 5 Active Active Problems Problem Noted Date Diagnosed Date Cardiomyopathy 08/31/2024 Nonrheumatic mitral valve regurgitation 08/31/19 25 ESRD (end stage renal disease) on dialysis 12/03 Overview (12/03/2022): Added automatically from request for surgery [id number] Assessment & Plan (09/13/2024 9:37 AM PEDICURIST): Patient is currently dialyzing through a right [...] proceed. Assessment & Plan (09/15/2023 3:15 PM PEDICURIST): Impression: Patient is being dialyzed through a [...] dialysis. Assessment & Plan (08/11/2023 1:31 PM PEDICURIST): Dialyzing through a right brachiocephalic fistula. States [...] any decrease in sensory motor has strong licensed physical therapist his hand is warm. He denies any [...] 03/10/2022 Assessment & Plan (08/11/2023 1:32 PM PEDICURIST): Chronic controlled. Continue amiodarone Dizziness 01/27/2022 Sensorineural hearing loss (SNHL) of both ears 0 12/03/2021 Bilateral lower extremity edema 07/26/2021 Essential hypertension 04/09/2021 Assessment & Plan (09/13/2024 9:32 AM PEDICURIST): Patient's blood pressure is now mostly labile and hypotensive. Continue midodrine as per his physician. Assessment & Plan (2024 10:49 AM CDT): Continue antihypertensives Assessment & Plan (09/15/2023 3:16 PM PEDICURIST): Impression: Chronic and stable. Plan: Continue metoprolol Assessment & Plan (08/11/2023 1:24 PM PEDICURIST): metoprolol Hyperlipidemia LDL goal <70 04/09/2021 Assessment & Plan (09/13/2024 9:31 AM PEDICURIST): Controlled. Continue Lipitor Assessment & Plan (2024 10:49 AM CDT): Continue Lipitor Assessment & Plan (09/15/2023 3:16 PM PEDICURIST): Impression: Chronic stable. 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 04/09/2021 Bilateral impacted cerumen 03/05/2021 Chronic eczematous otitis externa of left ear Erectile dysfunction 02/17/2019 Overview (02/17/2019): Added automatically from request for surgery [id number] Resolved Problems Problem Noted Date Diagnosed Date Resolved Date CKD (chronic kidney disease) stage 4, GFR 15-29 ml/min 07/26/2021 09/15/2023 Class 2 obesity due to exces s calories without serious comorbidity with body mass index (BMI) of 36.0 to 36.9 in adult 04/09/2021 Urologic disorder 04/04/2019 04/04/2019 Encounters Date Type Department Care Team Description 01/03/2025 Telephone [facility] Medical Group Cardiology [address] [place] [address] Angel Chow MD 11/03/2024 Telephone [facility] Medical Group Cardiology [address] [place] [address] Angel Chow MD from Last 3 Months [...] ED (erectile dysfunction) CKD (chronic kidney disease) [place], old PONV (postoperative nausea and vomiting) Allergic rhinitis Heart attack (HCC) 2010 Hyperlipidemia Cancer (HCC) kidney Obesity Bruises easily Hemodialysis patient perma cath right chest, MWF [facility] Ear problems Family History Medical [...] Comments Blood Pressure 78/56 09/13/2024 8:39 AM PEDICURIST Asymptomatic: states BP has been running on low side, denies any symptoms at this time. Pulse 60 09/13/2024 8:39 AM PEDICURIST Temperature 36.7 C (98 F) 09/20/2024 12:22 PM PEDICURIST Respiratory Rate 22 04/12/2024 10:3 0 AM CDT Oxygen Saturation 100% 09/13/2024 8:3 9 AM PEDICURIST Inhaled Oxygen Concentration - - Weight 95.3 kg (210 lb) 09/20/2024 12:2 2 PM PEDICURIST Height 188 cm (6' 2 ) 09/20/2024 12:22 PM PEDICURIST Body Mass Index 26.96 09/20/2024 12:22 PM PEDICURIST Plan of Treatment Health Maintenance Due Date Last Done Comments Depression Screening 1940 Hepatitis B Screening 1958 Well Visit 65+ 2006 Fall Risk Assessment 04/12/2025 04/12/2024 Influenza Vaccine (Season Ended) 2025 04/27/2020, 05/31/2019, 05/25/2018, Additional history exists DTaP/Tdap/Td Vaccine (2 - Td or Tdap) 12/02/2028 12/02/2018 Zoster Vaccine Completed 08/23/2018, 05/25/2018 Pneumococcal vaccine 65+ Completed 12/02/2018, 01/2016 Medical Devices Implanted Type Area Warehouse Handler Device Identifier Shelf Expiration Date Model / Serial / Lot Coloplast Lux [id number] Titan Lock-Out Inflatable Self Contain Fluid Fill Tube Standard Latex Free - Sn/A - [id number] Implanted:Qty: 1 on 03/18/2019 by Angel Kiran MD at [facility] Other - see comments N/A: Penis Coloplast Lux 09/20/2023 [id number] / N/A / [id number] Description:PENIAL PROSTHESI S Coloplast Lux [id number] Titan Coloplast Lock-Out Inflatable Self Contain Fluid Fill Valve Latex Free - Sn/A - [id number] Implanted:Qty: 1 on 03/18/2019 by Angel Kiran MD at [facility] Other - see comments N/A: Penis Coloplast Lux 10/07/2023 [id number] / N/A / [id number] Description:PENILE PROSTHESI S Coloplast Lux [id number] Pros 0d Cyl 20cm Penile Ttn Otr Scrotum - Sn/A - [id number] Implanted:Qty: 1 on 03/18/2019 by Angel Kiran MD at [facility] Other - see comments N/A: Penis Coloplast Lux 11/29/2023 [id number] / N/A / [id number] Description:PENILE PROSTHESI S Stent Heart Description:x2 Insurance MEDICARE [facility] MEDICARE [facility] MEDICARE [facility] Advance Directives For more information, please contact: [phone] * Full Code (Latest Code Status on File) Date Activated Date Inactivated Comments 03/18/2019 2:27 PM 03/19/2019 6:43 PM Care Teams Digital Campaign Specialist Relationship Specialty Start Date End Date Dickson Land MD [address] [facility] [address] [place] [address] PCP - General Family Medicine 01/27/19 Dionicio Carrasquillo MD [address] [facility] [address] [address] [place] [address] Surgeon Surgery 03/05/23
--- OUTSIDE RECORDS SUMMARY | 2025-01-04 05:20 | XMS_ITS | Encounter Summary ---
Author Organization [facility] Address [address] [place] [address] Care Team Providers Care Specialty Development Consultant Name Role Phone Dickson Land MD Primary Care Provider [phone] Reason for Visit * Reason Onset Date Comments A-FIB 08/02/2024 [employer] secure chat to Dr. Steward's group Dialysis management 08/02/2024 Spoke w/Van at Dr. Larsen' jarrod Encounter Details Date Type Department Care Team (Late st Contact Info) Description 08/02/2024 Telephone [facility] Admitting [address] [place] [address] [place] [address] [place] [address] A-FIB (Semasio chat to Dr. Steward'juan manuel group); Dialysis [...] Pathogen 08/02/2024 08/02/2024 08/03/2024 6 :30 AM ELECTRONICS PROCESSING SUPERVISOR R/O C. diff 08/04/2024 08/04/2024 08/05/2024 7:00 AM ELECTRONICS PROCESSING SUPERVISOR documented as of this encounter Care Teams Specialty Development Consultant Relationship Specialty Start Date End Date Dickson Land MD [address] [facility] [address] [place] [address] PCP - General Family Practice 04/17/22 documented as of this encounter
--- OUTSIDE RECORDS SUMMARY | 2025-01-04 05:20 | XMS_ITS | Clinical Summary ---
Author Organization [facility] Address [address] [facility] [place] [address] Care Team Providers Care Chopper Operator Name Role Phone Dickson Land MD Primary Care Provider [phone] Allergies No known active allergies Medications colchicine [...] Active Fluticasone Furoate (FLONASE SENSIMIST) 27.5 mcg/actuation [place], Suspension Administer 1 spray into each nostril [...] Comments Blood Pressure 80/44 08/25/2024 9:00 AM CIGAR PACKER AND SORTER Pulse 63 08/25/2024 8:43 AM CIG[employer] PACKER [employer] SORTER Temperature 36.7 C (98 F) 08/10/2024 7:33 AM CIG[employer] PACKER [employer] SORTER Respiratory Rate 19 08/10/2024 12:59 PM CIG[employer] PACKER [employer] SORTER Oxygen Saturation 96% 08/25/2024 8:43 AM CIGAR PACKER [employer] SORTER Inhaled Oxygen Concentration - - Weight 99.8 kg (220 lb) 08/25/2024 8:43 AM CIGAR PACKER [employer] SORTER Height 188 cm (6' 2 ) 08/25/2024 8:43 AM CIGAR PACKER [employer] SORTER Body Mass Index 28.25 08/25/2024 8:43 AM CIGAR PACKER [employer] SORTER Plan of Treatment Health Maintenance Due Date Last Done Comments RSV VACCINE (60+ or ) (1 - 1-dose 75+ series) 2016 INFLUENZA VACCINE (#1) 2024 05/25/2021, 2019 DTAP/TDAP/TD VACCINES (2 - Td or Tdap) 12/02/2028 ZOSTER VACCINE Completed 08/23/2018, 05/25/2018 PNEUMOCOCCAL VACCINE 50+ YEARS Completed 12/02/2018 , 02/27/2016 Insurance MEDICARE PART A AND B [facility] [employer]AL MEDICARE PART A AND B [facility] [employer] Advance Directives For more information, please contact: [phone] * NO CPR (In Event of Cardiopulmonary [...] 6:07 AM 08/02/2024 6:40 AM Care Teams Chopper Operator Relationship Specialty Start Date End Date Dickson Land MD [address] [facility] [address] [place] [address] PCP - General Family Practice 04/17/22
--- OUTSIDE RECORDS SUMMARY | 2025-01-04 05:20 | XMS_ITS | Patient Health Record ---
Author Organization [email or web address] Address [address] [address] Care Team Providers Care Newsroom Intern Name Role Phone LandDickson Primary Care Provider WASHINGTON Li Unavailable [phone] Allergies No Known Allergies Reason For Referral Reason PALLIATIVE CARE RE CEIVED VIA EMIAL FROM DEV HUERTA AND JAZ RUBY Diagnosis 1 Hypertensive heart a nd chronic kidney disease with heart failure and with stage 5 chronic kidney disease, or end stage renal disease (I13.2) Diagnosis 2 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) Referred Organization [facility] Referred Provider WASHINGTON KENNY Referred Address [address] [facility], [place], [place],[address], General Notes 1. 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 HE MENTIONED THAT HIS DOCTOR HAD ALSO REFERRED HIM ELSEWHERE AND ASKED TO FOLLOW UP WITH HIM ON SEPTEMBER 09, 2024., I SPOKE WITH THE PATIENT REGARDING SCHEDULING AND HE IS STILL UNDECIDED REQUEST FOR ME TO FOLLOW UP WITH HIM ..25, KIARA MEJIA 09/12/2024 01:29:33 PM >, ALONZO QUINONES 09/20/2024 04:49:44 PM > PATIENT ADMITTED TO PC Referral Priority Routine Medications Medication SIG (Take, Route, Frequency, Duration) Notes Start Date End Date Status Lactulose 10 GM/15ML TAKE 30ML(2 TABLESPOONSFUL) BY MOUTH TWICE DAILY FOR CONSTIPATION Oral Active Gabapentin 300 MG TAKE 1 CAPSULE BY MO UTH IN THE MORNING Oral for 90 Days Active Allopurinol 300 MG 1/2 tablet Oral Active Amiodarone HCl 200 MG TAKE 1 TABLET BY M OUTH TWICE DAILY Oral Active Eliquis 5 MG TAKE 1 TABLET BY STEPHANIE TH TWICE DAILY Oral Active Midodrine HCl 10 MG Oral three times a day Active Sevelamer Carbonate 800 MG 2 tablet with meals Orally Three times a day Active Atorvastatin Calcium 20 MG TAKE 1 TABLET BY MOUTH ONCE DAILY Oral Active Social History Tobacco Use: Social History Observation Description Date Details (start date - stop date) Never Smoker NA - NA Tobacco Use/Smoking Question Answer Notes Are you a nonsmoker Problems Problem Type SNOMED Code ICD Code Onset Dates Problem Status W/U Status Risk Notes Problem Hypertensive heart AND chronic kidney disease with congestive heart failure (58839008123734) 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, or end stage renal disease (I13.2) Active confirmed Problem Biventricular congestive heart failure (76914018) 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) Active confirmed Problem Cirrhosis of liver (85894509) Cirrhosis of liver (K74.60) Active confirmed Problem [id number] Afib (I48.91) Active confirmed Vital Signs Heart Rate 48 /min 01/03/2025 Temperature 96.7 degrees Fahrenheit 01/03/2025 Respiratory Rate 16 /min 01/03/2025 Blood pressure diastolic 48 mm Hg 01/03/2025 Oximetry 97 % 01/03/2025 Blood pressure systolic 76 mm Hg 01/03/2025 Encounters Encounter Location Date Provider Diagnosis [address] [address] 09/20/2024 WASHINGTON ZOYA 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, or end stage renal disease I13.2 ; Biventricular heart failure I50.82 ; Edema, peripheral R60.9 and Cirrhosis of liver K74.[address] [place] [address] 10/18/2024 WASHINGTON ZOYA 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, or end stage renal disease I13.2 ; Biventricular heart failure I50.82 ; Edema, peripheral R60.9 ; Cirrhosis of liver K74.60 ; Encounter for palliative care Z51.5 and Inguinal hernia K40.[address] [place] [address] 11/22/2024 WASHINGTON ZOYA Biventricular heart failure I50.82 ; Cirrhosis of liver K74.60 ; Encounter for palliative care Z51.5 ; 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, or end stage renal disease I13.2 ; Afib I48.91 ; Hypotension I95.9 and Edema, peripheral R60.0 [facility] [address] [address] 12/06/2024 WASHINGTON ZOYA Biventricular heart failure I50.82 ; Cirrhosis of liver K74.60 ; Encounter for palliative care Z51.5 ; Afib I48.91 and Hypotension I95.9 [facility] [address] [address] 01/03/2025 WASHINGTON ZOYA 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, or end stage renal disease I13.2 ; Biventricular heart failure I50.82 ; Cirrhosis of liver K74.60 ; Afib I48.91 ; Palliative care encounter Z51.5 and Hypotension I95.9 [place] [address] [address] 09/28/2024 WASHINGTON ZOYA Assessments Encounter Date Diagnosis [...] (ICD-10 - I50.82) Continue follow up with collar tacker as scheduled Notify provider if there are any changes in symptoms 11/22/2024 Cirrhosis of liver (ICD-10 - K74.60) 12/06/2024 Biventricular heart failure (ICD-10 - I50.82) Continue all medications Low sodium diet along with fluid restriction Follow up with collar tacker 12/06/2024 Cirrhosis of liver (ICD-10 - K74.60) Continue medications Continue paracentesis as scheduled 01/03/2025 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, or end stage renal disease (ICD-10 - I13.2) Continue medication Continue dialysis 01/03/2025 Biventricular heart failure (ICD-10 - I50.82) Continue medication Follow up with cardiology as scheduled 01/03/2025 Cirrhosis of liver (ICD-10 - K74.60) Continue medication Continue routine tap 11/22/2024 Encounter for palliative care (ICD-10 - [...] end stage renal disease (ICD-10 - I13.2) 01/03/2025 Afib (ICD-10 - I48.91) 09/20/2024 Edema, peripheral (ICD-10 - R60.9) Continue to wear compression socks Watch salt in diet Keep feet/legs elevated when sitting 12/06/2024 Afib (ICD-10 - I48.91) 01/03/2025 Palliative care encounter (ICD-10 - Z51.5) DNR PPS 70% 10/18/2024 Cirrhosis of liver (ICD-10 - K74.60) [...] Encounter for palliative care (ICD-10 - Z51.5) 01/03/2025 Hypotension (ICD-10 - I95.9) BP low today Due for midodrine in 1 hr Asymptomatic Call to nephrology to see if dose can be increased daily to20mg TID all days and not only on dialysis days 10/18/2024 Inguinal hernia (ICD-10 - K40.90) 11/22/2024 Edema, peripheral (ICD-10 - R60.0) Plan Of Treatment Next Appt Details Provider Name:WASHINGTON KENNY, 0 01/31/2025 10:30:00 AM, [address] [facility] [facility] [facility], [place], [address], Insurance Providers Payer Name Payer Address Payer Phone Subscriber Number Group Number Insured Name Patient Relationship to Insured Coverage Start Date Coverage End Date [place] [address] [address] [place] [address] [id number] ARMEN CUNN[place]AM Self - patient is the insured Medical (General) History Medical History History ICD Code Hypertensive heart and chron ic kidney disease with heart failure and with stage 5 chronic kidney disease, or end stage renal disease I13.2 Biventricular heart failure I50.82 cirrhosis neuropathy Atrial fibrillation Peripheral edema Surgical History Surgery Date(Month/Year) fistula right arm appendectomy nephrectomy left Hospitalization History Reason Date(Month/Year) nephrectomy 2020 heart failure 07/2024
--- OUTSIDE RECORDS SUMMARY | 2025-01-04 05:20 | XMS_ITS | Clinical Summary ---
Author Organization [facility] Address [address] [place] [address] Care Team Providers Care Sheet Roller Operator Name Role Phone Dickson Land MD Primary Care Provider [phone] Source Comments [facility],non-owned Affiliates and Associated Physician Practices is amultiple site organization consisting of ambulatory clinics and hospital sitesin [place], [place] and [place]. This disclosure is being madepursuant to the Care Everywhere program and may not contain all information available regarding this patient. Last updated 18.[facility] [employer] Social History Tobacco Use Types Packs/Day Years [...] patient's age to complete this topic Insurance [employer]IC[employer] Care Teams Sheet Roller Operator Relationship Specialty Start Date End Date Dickson Land MD [address] [facility] [address] [place] [address] PCP - General Family Medicine 03/30/24
--- OUTSIDE RECORDS SUMMARY | 2025-01-04 05:21 | XMS_ITS | Encounter Summary ---
Author Organization [facility] Healthcare Address [address] [place] [address] Care Team Providers Care Is/It Project Manager Name Role Phone Dickson Land MD Primary Care Provider Dionicio Carrasquillo MD Unavailable [phone] Encounter Details Date Type Department Care Team (Late st Contact Info) Description 03/21/2019 Documentation [facility] Case Management [address] [place] [address] Opal Crawley RN Social History Tobacco Use [...] on filedocumented in this encounter Care Teams Is/It Project Manager Relationship Specialty Start Date End Date Dickson Land MD [address] [place] [address] PCP - General Family Medicine 01/27/19 Dionicio Carrasquillo MD [address] [facility] [address] [place] [address] Surgeon Surgery 03/05/23 documented as of this encounter
--- OUTSIDE RECORDS SUMMARY | 2025-01-04 05:21 | XMS_ITS | Encounter Summary ---
Author Organization [facility] Healthcare Address [address] [place] [address] Care Team Providers Care Workers Compensation Claims Assistant Name Role Phone Dickson Land MD Primary Care Provider Dionicio Carrasquillo MD Unavailable [phone] Encounter Details Date Type Department Care Team (Late st Contact Info) Description 12/08/2023 Telephone [facility] at [facility] [address] [facility] [address] [place] [address] Dionicio Carrasquillo MD [address] [place] [address] Social History Tobacco Use Types Packs/Day Years [...] on filedocumented in this encounter Care Teams Workers Compensation Claims Assistant Relationship Specialty Start Date End Date Dickson Land MD [address] [facility] [address] [facility] [address] [place] [address] PCP - General Family Medicine 01/27/19 Dionicio Carrasquillo MD [address] [facility] [address] [place] [address] Surgeon Surgery 03/05/23 documented as of this encounter
--- OUTSIDE RECORDS SUMMARY | 2025-01-04 05:21 | XMS_ITS | Encounter Summary ---
Author Organization [facility] Healthcare Address [address] [place] [address] Care Team Providers Care Director Post Name Role Phone Dickson Land MD Primary Care Provider Dionicio Carrasquillo MD Unavailable [phone] Encounter Details Date Type Department Care Team (Late st Contact Info) Description 02/06/2024 Orders Only [facility] Information Management [address] [place] [address] Scanning, Provider Social History Tobacco Use Types [...] filedocumented in this encounter Care Teams Director Post Relationship Specialty Start Date End Date Dickson Land MD [address] [facility] [address] [place] [address] PCP - General Family Medicine 01/27/19 Dionicio Carrasquillo MD [address] [facility] [address] [place] [address] Surgeon Surgery 03/05/23 documented as of this encounter
--- OUTSIDE RECORDS SUMMARY | 2025-01-04 05:22 | XMS_ITS | Clinical Summary ---
Author Organization [facility] Address [address] [place] [address] Care Team Providers Care Electro Tech Name Role Phone Dickson Land MD Primary Care Provider [phone] Allergies No known active allergies Medications allopurinol [...] as needed. Indications: Allergic Conjunctivitis 03/05/20 Active Berclair-3 Fatty Acids (FISH OIL) 1200 MG Cap [...] Diagnosed Date ESRD (end stage renal disease) ([facility]) 02/26/2022 DELANEY (acute kidney injury) 02/26/2022 Hypotension 02/26/2022 NSTEMI (non-ST elevated myoc ardial infarction) ([facility]) 02/04/2022 Stage 4 chronic kidney disease ([facility]) 07/26/2021 Immunizations Immunization Administration Dates Next Due [...] Comments Blood Pressure 79/60 08/02/2024 4:40 AM EARLY CHILDHOOD EDUCATION SPECIALIST Pulse 99 08/02/2024 4:40 AM EARLY CHILDHOOD EDUCATION SPECIALIST Temperature 36.1 C (97 F) 08/02/2024 4:40 AM EARLY CHILDHOOD EDUCATION SPECIALIST Respiratory Rate 16 08/02/2024 4:40 AM EARLY CHILDHOOD EDUCATION SPECIALIST Oxygen Saturation 100% 08/02/2024 4:40 AM EARLY CHILDHOOD EDUCATION SPECIALIST Inhaled Oxygen Concentration - - Weight 108.1 kg (238 lb 5.1 oz) 08/02/2024 2:48 AM EARLY CHILDHOOD EDUCATION SPECIALIST Height 188 cm (6' 2 ) 08/02/2024 2:48 AM EARLY CHILDHOOD EDUCATION SPECIALIST Body Mass Index 30.6 08/02/2024 2:48 AM EARLY CHILDHOOD EDUCATION SPECIALIST Plan of Treatment Health Maintenance Due [...] this topic Medical Devices Implanted Type Area Training And Development Officer Device Identifier Shelf Expiration Date Model / Serial / Lot Arrow Next Step Retrograde Hemodialysis Catheter Implanted:Qty: 1 on 02/11/2022 by Kelton Palm MD at [facility] Catheter Implant Right: Neck [employer] [id number] 08/23/2024 [id number] / / [id number] Description:Right internal j ugular Procedures Procedure Name Priority Date/Time Associated Diagnosis Comments LIPID PANEL Routine 02/04/2022 6:40 AM CDT from Last 3 Months or Most Recently Relevant to Health Maintenance Results * (ABNORMAL) LIPID PANEL (02/04/2022 6:40 AM CDT) CHOLESTEROL 119 <200 MG/DL 02/04/2022 7:24 AM CDT [facility] TRIGLYCERIDES 130 <150 MG/DL 02/04/2022 7:24 AM CDT [facility] HDL 31(L) >40.0 MG/DL 02/04/2022 7:24 AM CDT [facility] LDL (CALCULATED) 62 <100 MG/DL 02/05/20 7:24 AM CDT [facility] NON HDL CHOLESTEROL 88 <130 MG/DL 02/04 7:24 AM CDT [facility] CHOL/HDL RATIO 3.8 0.0 - 4.5 02/04/2022 7:24 AM CDT [facility] VLDL CALCULATION 26 5 - 55 MG/DL 02/04/2022 7:24 AM CDT [facility] LIPID INTERPRETATION 02/04/2022 7:24 AM CDT [facility] Comment: NIH CONCENSUS REPORT RECOMMENDATIONS: ADULT CHILD LOW RISK: CHOLESTEROL <200 <170 TRIGLYCERIDE <150 --- HDL >=60 --- LDL <100 <110 BORDERLINE: CHOLESTEROL 200-239 170-199 TRIGLYCERIDE 150-199 --- HDL 40-59 --- LDL 100-159 110-129 HIGH RISK: CHOLESTEROL >=240 >=200 TRIGLYCERIDE >=200 --- HDL <40 --- LDL >=160 >=130 02/04/2022 6:40 AM CDT Maria M Ott DO LABORATORY Final Result [facility] [address] [place] [address], [place] [phone] from Last 3 Months or Most Recently Relevant to Health Maintenance Insurance MEDICARE [facility] Advance Directives Documents on File Type Date Recorded Patient Assistant Designer Expl anation Power of Commissary Agent * Full Code (Latest Code Status on File) Date Activated Date Inactivated Comments 03/24/2022 6:02 PM 07/13/2022 6:40 AM * Full Code Date Activated Date Inactivated Comments 02/04/2022 3:44 PM 02/21/2022 5:01 PM * DNR Date Activated Date Inactivated Comments 02/04/2022 2:37 AM 02/04/2022 3:44 PM Care Teams Electro Tech Relationship Specialty Start Date End Date Dickson Land MD [address] [facility] [address] [place] [address] PCP - General FAMILY PRACTICE 03/25/19
--- OUTSIDE RECORDS SUMMARY | 2025-01-04 05:22 | XMS_ITS | Encounter Summary ---
Author Organization [facility] Healthcare Address [address] [place] [address] Care Team Providers Care Paper Ruler Name Role Phone Dickson Land MD Primary Care Provider Dionicio Carrasquillo MD Unavailable [phone] Encounter Details Date Type Department Care Team (Late st Contact Info) Description 02/04/2023 Telephone [facility] Medical Office Building [address] [address] Dionicio Carrasquillo MD [address] [place] [address] Social History Tobacco Use Types Packs/Day Years [...] on filedocumented in this encounter Care Teams Paper Ruler Relationship Specialty Start Date End Date Dickson Land MD [address] [facility] [address] [facility] [address] [place] [address] PCP - General Family Medicine 01/27/19 Dionicio Carrasquillo MD [address] [facility] [address] [place] [address] Surgeon Surgery 03/05/23 documented as of this encounter
--- OUTSIDE RECORDS SUMMARY | 2025-01-04 05:22 | XMS_ITS | Encounter Summary ---
Author Organization [facility] Healthcare Address [address] [place] [address] Care Team Providers Care Therapy Technician Name Role Phone Dickson Land MD Primary Care Provider Dionicio Carrasquillo MD Unavailable [phone] Encounter Details Date Type Department Care Team (Late st Contact Info) Description 04/06/2024 Telephone [facility] at [facility] [address] [facility] [address] [place] [address] Dionicio Carrasquillo MD [address] [place] [address] Social History Tobacco Use Types Packs/Day Years [...] on filedocumented in this encounter Care Teams Therapy Technician Relationship Specialty Start Date End Date Dickson Land MD [address] [facility] [address] [facility] [address] [place] [address] PCP - General Family Medicine 01/27/19 Dionicio Carrasquillo MD [address] [facility] [address] [place] [address] Surgeon Surgery 03/05/23 documented as of this encounter
--- OUTSIDE RECORDS SUMMARY | 2025-01-04 05:22 | XMS_ITS | Encounter Summary ---
Author Organization [facility] Healthcare Address [address] [place] [address] Care Team Providers Care Overlock Collar Setter Name Role Phone Dickson Land MD Primary Care Provider Dionicio Carrasquillo MD Unavailable [phone] Encounter Details Date Type Department Care Team (Late st Contact Info) Description 08/13/2023 Telephone [facility] at [facility] [address] [facility] [address] [place] [address] Dionicio Carrasquillo MD [address] [place] [address] Social History Tobacco Use Types Packs/Day Years [...] on filedocumented in this encounter Care Teams Overlock Collar Setter Relationship Specialty Start Date End Date Dickson Land MD [address] [facility] [address] [facility] [address] [place] [address] PCP - General Family Medicine 01/27/19 Dionicio Carrasquillo MD [address] [facility] [address] [place] [address] Surgeon Surgery 03/05/23 documented as of this encounter
--- OUTSIDE RECORDS SUMMARY | 2025-01-04 05:22 | XMS_ITS | Encounter Summary ---
Author Organization [facility] Healthcare Address [address] [place] [address] Care Team Providers Care Business Continuity Consultant Name Role Phone Dickson Land MD Primary Care Provider Dionicio Carrasquillo MD Unavailable [phone] Encounter Details Date Type Department Care Team (Late st Contact Info) Description 07/03/2023 Telephone [facility] at [facility] [address] [facility] [address] [place] [address] Lance Carrasquillo MD [address] [place] [address] [address] [place] [address] Social History Tobacco Use Types Packs/Day Years [...] on filedocumented in this encounter Care Teams Business Continuity Consultant Relationship Specialty Start Date End Date Dickson Land MD [address] [facility] [address] [facility] 120 [place] [address] PCP - General Family Medicine 01/27/19 Dionicio Carrasquillo MD [address] [facility] [address] [place] [address] Surgeon Surgery 03/05/23 documented as of this encounter
--- NOTE | 2025-01-04 05:46 | ED_ITS ---
HPI - General Adult General Chief complaint: Urogenital-Male Stated complaint: testicle pain Time Seen by Provider: 01/04/25 05:34 History of Present Illness HPI narrative: This is an 84-year-old male with end-stage renal disease and liver cirrhosis with multiple medical comorbidities presenting with testicle pain and swelling. Symptoms started yesterday. Both testicles are sore. Did have a fall yesterday but he does not believe that he landed on his testicles he did not suffer any significant injury. He has not had pain on urination urgency or frequency. Patient is frequently fluid overload they take off at least 3 L every time he goes to dialysis. Patient states his blood pressure typically runs in the high 80s. He takes 2 midodrine 10 days he does dialysis and he has taken those this morning. Related Data Home Medications Medication Instructions Recorded Confirmed Last Taken Type nitroglycerin 0.4 mg sublingual 0.4 mg sublingual Q5M PRN Chest 11/26/20 12/23/24 Unknown History tablet Pain midodrine 10 mg tablet 10 mg PO TID 01/30/24 12/23/24 Unknown History allopurinol 300 mg tablet 300 mg PO .M,W,F 08/19/24 12/23/24 Unknown History atorvastatin 20 mg tablet 40 mg PO DAILY 08/19/24 12/23/24 Unknown History gabapentin 300 mg capsule 300 mg PO .M,W,F 08/19/24 12/23/24 Unknown History lactulose 10 gram/15 mL oral 30 ml PO BID 08/19/24 12/23/24 Unknown History solution Allergies Allergy/AdvReac Type Severity Reaction Status Date / Time No Known Allergies Allergy Verified 01/04/25 05:44 [facility] Past Medical History Medical History (Updated 01/04/25 @ 08:51 by Trae Sierra MD) History of heart attack Pleural effusion Retinal detachment Dialysis patient ESRD (end stage renal disease) Renal cell carcinoma s/p nephrectomy Chronic kidney disease, stage 4 (severe) Hy ht/kd 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 CKD (chronic kidney disease) stage 3, GFR 30-59 ml/min HLD (hyperlipidemia) Idiopathic peripheral neuropathy Surgical History Surgical History (System 12/23/24 @ 15:25 by Modesto Kendall) History of tonsillectomy History of appendectomy History of left nephrectomy Family History Family History (System 12/23/24 @ 15:25 by Modesto Kendall) Other Cerebrovascular accident Heart disease Social History Social History (System 12/23/24 @ 15:25 by Modesto Kendall) Smoking status: Never smoker Second hand tobacco smoke exposure: No Alcohol intake: never Substance use: never Substance use type: does not use Do You Feel Safe in your Home?: Yes Lack of Transportation: No Lack of Food: Never True Current Housing: I Have Housing Concerned About Future Housing: No Difficulty Paying Gas/Electric Bills: No Difficulty Paying for Meds: No Currently Unemployed: No Education: Decline to Answer Difficulty w/ Childcare or Family Care: No Living arrangements: alone Occupation/Education: retired Gender identity (if verbalized by the patient): Male Sexual Orientation (if Verbalized by the Patient): Straight or Heterosexual Spiritual care concerns: No Exam 2 Narrative: APPEARANCE: No apparent distress. Head: atraumatic. EYES: EOMI, NOSE: Atraumatic NECK: Trachea midline RESPIRATORY: No increased rate of breathing CARDIOVASCULAR: RRR, ABDOMINAL: Non-distended : Penile implant, right inguinal hernia that is reducible, diffuse swelling of the scrotum with bilateral testicular tenderness. Normal lie. No overlying skin changes MUSCULOSKELETAl: No obvious deformities NEURO: Alert. Moving 4/4 extremities SKIN:: Warm, dry. Normal color PSYCHIATRIC: Normal affect Course Vital Signs Vital signs: Vital Signs Pulse Rate 48 L 01/04/25 05:36 Respiratory Rate 16 01/04/25 05:36 Blood Pressure 83/47 L 01/04/25 05:36 Pulse Oximetry 97 01/04/25 05:36 Oxygen Delivery Room Air 01/04/25 05:36 Temperature 36.4 C 01/04/25 08:50 Pulse Rate 48 L 01/04/25 08:50 Respiratory Rate 16 01/04/25 08:50 Blood Pressure 85/54 L 01/04/25 08:50 Pulse Oximetry 96 01/04/25 08:50 Oxygen Delivery Room Air 01/04/25 05:36 Medical Decision Making [facility] Narrative Medical decision making narrative: -Course: 84-year-old male with liver cirrhosis and end-stage renal disease frequent fluid overload sprain with swollen scrotum. Ultrasound, urinalysis and basic labs ordered to evaluate. Signed out to the oncoming physician pending results. -DDX includes but is not limited to: Hydrocele, varicocele, hernia, epididymitis/orchitis, urinary tract infection, torsion Vital Signs Vital Signs: Vital Signs Pulse Rate 48 L 01/04/25 05:36 Respiratory Rate 16 01/04/25 05:36 Blood Pressure 83/47 L 01/04/25 05:36 Pulse Oximetry 97 01/04/25 05:36 Oxygen Delivery Room Air 01/04/25 05:36 Temperature 36.4 C 01/04/25 08:50 Pulse Rate 48 L 01/04/25 08:50 Respiratory Rate 16 01/04/25 08:50 Blood Pressure 85/54 L 01/04/25 08:50 Pulse Oximetry 96 01/04/25 08:50 Oxygen Delivery Room Air 01/04/25 05:36 Lab Data 01/04/25 05:50 01/04/25 05:50 Labs: Lab Results 01/04/25 Range/Units 05:50 WBC 6.0 (4.5-10.0) K/mm3 RBC 2.64 L (4.6-6.20) M/mm3 Hgb 9.3 L (14.0-18.0) g/dL Hct 29.3 L (42.0-52.0) % MCV 111.0 H (80-100) fl MCH 35.2 H (26-34) pg MCHC 31.7 L (32-36) g/dl RDW 14.4 (11.5-14.5) % Plt Count 179 (150-375) k/mm3 MPV 9.5 (7.4-10.4) fl Immature Gran % (Auto) 0.3 (0-0.5) % Neut % (Auto) 68.6 (45.5-73.1) % Lymph % (Auto) 11.4 L (18.3-44.2) % [place] % (Auto) 15.9 H (2.6-8.5) % Eos % (Auto) 3.0 (0-4.4) % Baso % (Auto) 0.8 (0.2-1.2) % Lymph # (Auto) 0.68 L (0.9-3.2) K/mm3 [place] # (Auto) 1.0 H (0.1-0.6) K/mm3 Eos # (Auto) 0.2 (0-0.3) K/mm3 Baso # (Auto) 0.1 (0.0-0.1) K/mm3 Abs Immat Gran (auto) 0.02 (0.00-0.031) K/mm3 Absolute Neuts (auto) 4.1 (1.3-6.7) K/mm3 Absolute Nucleated RBC 0.000 (0.0-0.012) K/mm3 Band Neutrophils % Not Reportable Nucleated RBC % 0.0 (0.0-0.2) % Platelet Estimate Adequate (Adequate) Macrocytosis 1+ (NORMAL) Schistocytes None seen Sodium 139 (137-145) mmol/L Potassium 4.9 (3.4-5.0) mmol/L Chloride 93 L (98-107) mmol/L Carbon Dioxide 38 H (22-30) mmol/L Anion Gap 8 (4-12) mmol/L BUN 41 H D (9-20) mg/dL Creatinine 7.31 H (0.7-1.3) mg/dL Estim Creat Clear Calc 8 ml/min Estimated GFR 7 L (59 - ) Glucose 104 (65-110) mg/dL Calcium 9.4 (8.4-10.2) mg/dL Total Bilirubin 1.0 (0.2-1.3) mg/dL AST 22 (17-59) U/L ALT 19 (6-50) U/L Alkaline Phosphatase 212 H (38-126) U/L Total Protein 7.0 (6.3-8.2) g/dL Albumin 3.5 (3.5-5.1) g/dL Discharge Plan Discharge Clinical Impression: Hematoma of testis Patient Disposition: Home Condition: Stable Instructions: Antibiotic Form, Testicle Pain (ED), Hematoma (ED) Additional Instructions: The ultrasound shows that you have bruising under testicle. Please rest elevate and apply cool packs to your scrotum. You will need to have a repeat ultrasound in 6 weeks to verify that the bruising is going down. This can be done by your primary care provider if the ultrasound is resolved there would not require any further intervention if it is residual you may need to see Urology. Patient Language: Bulgarian Prescriptions: No Action lactulose 10 gram/15 mL solution 30 ml PO BID gabapentin 300 mg capsule 300 mg PO .M,, allopurinol 300 mg tablet 300 mg PO .M,W,F atorvastatin 20 mg tablet 40 mg PO DAILY nitroglycerin 0.4 mg tablet, sublingual 0.4 mg sublingual Q5M PRN (Reason: Chest Pain) Rx Instructions: do not exceed 3 doses per episode midodrine 10 mg tablet 10 mg PO TID apixaban 2.5 mg tablet 2.5 mg PO BID Qty: 60 5RF amiodarone 200 mg tablet See Rx Instructions .ROUTE .COMPLEX Qty: 60 5RF Dose Instruction: TAKE 1 TABLET BY MOUTH TWICE DAILY Rx Instructions: TAKE 1 TABLET BY MOUTH TWICE DAILY Follow-up/Referrals: Dickson Land MD [Primary Care Provider] - Time of Disposition: 08:50
--- OUTSIDE RECORDS SUMMARY | 2025-01-04 05:49 | XMS_ITS | Clinical Summary ---
Author Organization [facility] Address [address] [place] [address] Care Team Providers Care Pug Mill Operator Name Role Phone Dickson Land MD Primary Care Provider [phone] Source Comments [facility],non-owned Affiliates and Associated Physician Practices is amultiple site organization consisting of ambulatory clinics and hospital sitesin [place], [place], [place] and [place]. This disclosure is being madepursuant to the Care Everywhere program and may not contain all information available regarding this patient. Last updated 18.[facility] Social History Tobacco Use Types Packs/Day Years [...] patient's age to complete this topic Insurance [facility] MEDICARE Care Teams Pug Mill Operator Relationship Specialty Start Date End Date Dickson Land MD [address] [place] [address] PCP - General Family Medicine 03/30/24
--- OUTSIDE RECORDS SUMMARY | 2025-01-04 05:49 | XMS_ITS | Encounter Summary ---
Author Organization [facility] Healthcare Address [address] [place] [address] Care Team Providers Care Rn Maternity Name Role Phone Dickson Land MD Primary Care Provider Dionicio Carrasquillo MD Unavailable [phone] Encounter Details Date Type Department Care Team (Late st Contact Info) Description 01/03/2025 Telephone [facility] Medical Group Cardiology [address] [place] [address] Angel Chow MD [facility] [place] [id number] Social History Tobacco Use Types Packs/Day Years [...] at this time. Will forward to the [facility] to watch for appointments in [place], as well. * Telephone Encounter - Dana [...] on filedocumented in this encounter Care Teams Rn Maternity Relationship Specialty Start Date End Date Dickson Land MD [address] [facility] [address] [place] [address] PCP - General Family Medicine 01/27/19 Dionicio Carrasquillo MD [address] [place] [address] Surgeon Surgery 03/05/23 documented as of this encounter
--- OUTSIDE RECORDS SUMMARY | 2025-01-04 05:49 | XMS_ITS | Clinical Summary ---
Author Organization [facility] Address [address] [place] [address] Care Team Providers Care Cradle Placer Name Role Phone Dickson Land MD Primary Care Provider [phone] Allergies No known active allergies Medications colchicine [...] Active Fluticasone Furoate (FLONASE SENSIMIST) 27.5 mcg/actuation [place], Suspension Administer 1 spray into each nostril [...] Comments Blood Pressure 80/44 08/25/2024 9:00 AM MEAT PULLER Pulse 63 08/25/2024 8:43 AM MEAT PULLER Temperature 36.7 C (98 F) 08/10/2024 7:33 AM MEAT PULLER Respiratory Rate 19 08/10/2024 12:59 PM MEAT PULLER Oxygen Saturation 96% 08/25/2024 8:43 AM MEAT PULLER Inhaled Oxygen Concentration - - Weight 99.8 kg (220 lb) 08/25/2024 8:43 AM MEAT PULLER Height 188 cm (6' 2 ) 08/25/2024 8:43 AM MEAT PULLER Body Mass Index 28.25 08/25/2024 8:43 AM MEAT PULLER Plan of Treatment Health Maintenance Due Date Last Done Comments RSV VACCINE (60+ or ) (1 - 1-dose 75+ series) 2016 INFLUENZA VACCINE (#1) 2024 05/25/2021, 2019 DTAP/TDAP/TD VACCINES (2 - Td or Tdap) 12/02/2028 ZOSTER VACCINE Completed 08/23/2018, 05/25/2018 PNEUMOCOCCAL VACCINE 50+ YEARS Completed 12/02/2018 , 02/27/2016 Insurance MEDICARE PART A AND B [facility] MEDICARE PART A AND B [facility] Advance Directives For more information, please contact: [phone] * NO CPR (In Event of Cardiopulmonary [...] 6:07 AM 08/02/2024 6:40 AM Care Teams Cradle Placer Relationship Specialty Start Date End Date Dickson Land MD [address] [facility] [address] [place] [address] PCP - General Family Practice 04/17/22
--- OUTSIDE RECORDS SUMMARY | 2025-01-04 05:49 | XMS_ITS | Clinical Summary ---
Author Organization [facility] Address [address] [place] [address] Care Team Providers Care Automobile Service Station Mechanic Name Role Phone Dickson Land MD Primary Care Provider Dionicio Carrasquillo MD Unavailable [phone] Allergies No known active allergies Medications [...] 20 mg tabletIndicatio ns:Coronary artery disease of [place] artery of [place] heart with stable angina pectoris Take 1 tablet (20 mg total) by mouth daily 90 tablet 1 5 Active Active Problems Problem Noted Date Diagnosed Date Cardiomyopathy 08/31/2024 Nonrheumatic mitral valve regurgitation 08/31/19 25 ESRD (end stage renal disease) on dialysis 12/03 Overview (12/03/2022): Added automatically from request for surgery [id number] Assessment & Plan (09/13/2024 9:37 AM KIER TENDER): Patient is currently dialyzing through a right [...] proceed. Assessment & Plan (09/15/2023 3:15 PM KIER TENDER): Impression: Patient is being dialyzed through a [...] dialysis. Assessment & Plan (08/11/2023 1:31 PM KIER TENDER): Dialyzing through a right brachiocephalic fistula. States [...] any decrease in sensory motor has strong wastewater design engineer his hand is warm. He denies any [...] 03/10/2022 Assessment & Plan (08/11/2023 1:32 PM KIER TENDER): Chronic controlled. Continue amiodarone Dizziness 01/27/2022 Sensorineural hearing loss (SNHL) of both ears 0 12/03/2021 Bilateral lower extremity edema 07/26/2021 Essential hypertension 04/09/2021 Assessment & Plan (09/13/2024 9:32 AM KIER TENDER): Patient's blood pressure is now mostly labile and hypotensive. Continue midodrine as per his physician. Assessment & Plan (2024 10:49 AM CDT): Continue antihypertensives Assessment & Plan (09/15/2023 3:16 PM KIER TENDER): Impression: Chronic and stable. Plan: Continue metoprolol Assessment & Plan (08/11/2023 1:24 PM KIER TENDER): metoprolol Hyperlipidemia LDL goal <70 04/09/2021 Assessment & Plan (09/13/2024 9:31 AM KIER TENDER): Controlled. Continue Lipitor Assessment & Plan (2024 10:49 AM CDT): Continue Lipitor Assessment & Plan (09/15/2023 3:16 PM KIER TENDER): Impression: Chronic stable. 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 Erectile dysfunction 02/17/2019 Overview (02/17/2019): Added automatically from request for surgery [id number] Resolved Problems Problem Noted Date Diagnosed Date Resolved Date CKD (chronic kidney disease) stage 4, GFR 15-29 ml/min 07/26/2021 09/15/2023 Class 2 obesity due to exces s calories without serious comorbidity with body mass index (BMI) of 36.0 to 36.9 in adult 04/09/2021 Urologic disorder 04/04/2019 04/04/2019 Encounters Date Type Department Care Team Description 01/03/2025 Telephone [facility] Cardiology [address] [place] [phone] Angel Chow MD 11/03/2024 Telephone [facility] Cardiology [address] [place] [address] Angel Chow MD from Last 3 Months [...] ED (erectile dysfunction) CKD (chronic kidney disease) AK, old PONV (postoperative nausea and vomiting) Allergic rhinitis Heart attack (HCC) 2010 Hyperlipidemia Cancer (HCC) kidney Obesity Bruises easily Hemodialysis patient perma cath right chest, MWF [facility] Ear problems Family History Medical History [...] Comments Blood Pressure 78/56 09/13/2024 8:39 AM KIER TENDER Asymptomatic: states BP has been running on low side, denies any symptoms at this time. Pulse 60 09/13/2024 8:39 AM KIER TENDER Temperature 36.7 C (98 F) 09/20/2024 12:22 PM KIER TENDER Respiratory Rate 22 04/12/2024 10:3 0 AM CDT Oxygen Saturation 100% 09/13/2024 8:3 9 AM KIER TENDER Inhaled Oxygen Concentration - - Weight 95.3 kg (210 lb) 09/20/2024 12:2 2 PM KIER TENDER Height 188 cm (6' 2 ) 09/20/2024 12:22 PM KIER TENDER Body Mass Index 26.96 09/20/2024 12:22 PM KIER TENDER Plan of Treatment Health Maintenance Due Date Last Done Comments Depression Screening 1941 Hepatitis B Screening 1959 Well Visit 65+ 2006 Fall Risk Assessment 04/12/2025 04/12/2024 Influenza Vaccine (Season Ended) 2025 04/27/2020, 05/31/2019, 05/25/2018, Additional history exists DTaP/Tdap/Td Vaccine (2 - Td or Tdap) 12/02/2028 12/02/2018 Zoster Vaccine Completed 08/23/2018, 05/25/2018 Pneumococcal vaccine 65+ Completed 12/02/2018, 01/2016 Medical Devices Implanted Type Area Director Construction Services Device Identifier Shelf Expiration Date Model / Serial / Lot Coloplast Lux [id number] Titan Lock-Out Inflatable Self Contain Fluid Fill Tube Standard Latex Free - Sn/A - [id number] Implanted:Qty: 1 on 03/18/2019 by Angel Kiran MD at [facility] Other - see comments N/A: Penis Coloplast Lux 09/20/2023 [id number] / N/A / [id number] Description:PENIAL PROSTHESI S Coloplast Lux [id number] Titan Coloplast Lock-Out Inflatable Self Contain Fluid Fill Valve Latex Free - Sn/A - [id number] Implanted:Qty: 1 on 03/18/2019 by Angel Kiran MD at [facility] Other - see comments N/A: Penis Coloplast Lux 10/07/2023 [id number] / N/A / [id number] Description:PENILE PROSTHESI S Coloplast Lux [id number] Pros 0d Cyl 20cm Penile Ttn Otr Scrotum - Sn/A - [id number] Implanted:Qty: 1 on 03/18/2019 by Angel Kiran MD at [facility] Other - see comments N/A: Penis Coloplast Lux 11/29/2023 [id number] / N/A / [id number] Description:PENILE PROSTHESI S Stent Heart Description:x2 Insurance MEDICARE [facility] MEDICARE [facility] MEDICARE [facility] Advance Directives For more information, please contact: [phone] * Full Code (Latest Code Status on File) Date Activated Date Inactivated Comments 03/18/2019 2:27 PM 03/19/2019 6:43 PM Care Teams Automobile Service Station Mechanic Relationship Specialty Start Date End Date Dickson Land MD [address] [facility] [address] [place] [address] PCP - General Family Medicine 01/27/19 Dionicio Carrasquillo MD [address] [facility] [place] [address] Surgeon Surgery 03/05/23
--- OUTSIDE RECORDS SUMMARY | 2025-01-04 05:49 | XMS_ITS | Encounter Summary ---
Author Organization [facility] Address [address] [place] [address] Care Team Providers Care Senior Ui Developer Name Role Phone Dickson Land MD Primary Care Provider [phone] Reason for Visit * Reason Onset Date Comments A-FIB 08/02/[address] Steward's group Dialysis management 08/02/2024 Spoke w/Van at Dr. Larsen' jarrod Encounter Details Date Type Department Care Team (Late st Contact Info) Description 08/02/2024 Telephone [facility] Admitting [address] [place] [address] [place] [address] [place] [address] A-FIB ([employer]oGeo chat to Dr. Steward'juan manuel group); Dialysis [...] Pathogen 08/02/2024 08/02/2024 08/03/2024 6 :30 AM IMPLEMENTATION ANALYST R/O C. diff 08/04/2024 08/04/2024 08/05/2024 7:00 AM IMPLEMENTATION ANALYST documented as of this encounter Care Teams Senior Ui Developer Relationship Specialty Start Date End Date Dickson Land MD [address] [facility] [address] [place] [address] PCP - General Family Practice 04/17/22 documented as of this encounter
--- OUTSIDE RECORDS SUMMARY | 2025-01-04 05:49 | XMS_ITS | Referral Summary ---
Author Organization [facility] Address [address] [place] [address] Care Team Providers Care Dope Heater Name Role Phone Dickson Land MD Primary Care Provider Dionicio Carrasquillo MD Unavailable [phone] Encounters Date Type Department Care Team Description 01/03/2025 Telephone [facility] Cardiology [address] [place] [address] Angel Chow MD 11/03/2024 Telephone [facility] Cardiology [address] [place] [address] Angel Chow MD from Last [...] 20 mg tabletIndicatio ns: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 Assessment & Plan (09/15/2023 3:15 PM STORE PROMOTER): Impression: Patient is being dialyzed through a [...] dialysis. Assessment & Plan (08/11/2023 1:31 PM STORE PROMOTER): Dialyzing through a right brachiocephalic fistula. States [...] any decrease in sensory motor has strong sow farm technician his hand is warm. He denies any [...] 03/10/2022 Assessment & Plan (08/11/2023 1:32 PM STORE PROMOTER): Chronic controlled. Continue amiodarone Dizziness 01/27/2022 Sensorineural hearing loss (SNHL) of both ears 0 12/03/2021 Bilateral lower extremity edema 07/26/2021 Essential hypertension 04/09/2021 Assessment & Plan (09/13/2024 9:32 AM STORE PROMOTER): Patient's blood pressure is now mostly labile and hypotensive. Continue midodrine as per his physician. Assessment & Plan (2024 10:49 AM CDT): Continue antihypertensives Assessment & Plan (09/15/2023 3:16 PM STORE PROMOTER): Impression: Chronic and stable. Plan: Continue metoprolol Assessment & Plan (08/11/2023 1:24 PM STORE PROMOTER): metoprolol Hyperlipidemia LDL goal <70 04/09/2021 Assessment & Plan (09/13/2024 9:31 AM STORE PROMOTER): Controlled. Continue Lipitor Assessment & Plan (2024 10:49 AM CDT): Continue Lipitor Assessment & Plan (09/15/2023 3:16 PM STORE PROMOTER): Impression: Chronic stable. 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 Pulse 60 09/13/2024 8:39 AM STORE PROMOTER Temperature 36.7 C (98 F) 09/20/2024 12:22 PM STORE PROMOTER Respiratory Rate 22 04/12/2024 10:3 0 AM CDT Oxygen Saturation 100% 09/13/2024 8:3 9 AM STORE PROMOTER Inhaled Oxygen Concentration - - Weight 95.3 kg (210 lb) 09/20/2024 12:2 2 PM STORE PROMOTER Height 188 cm (6' 2 ) 09/20/2024 12:22 PM STORE PROMOTER Body Mass Index 26.96 09/20/2024 12:22 PM STORE PROMOTER Plan of Treatment Not on file Medical Devices Implanted Type Area Music Education Adjunct Professor Device Identifier Shelf Expiration Date Model / Serial / Lot Coloplast Lux [id number] Titan Lock-Out Inflatable Self Contain Fluid Fill Tube Standard Latex Free - Sn/A - [id number] Implanted:Qty: 1 on 03/18/2019 by Angel Kiran MD at [facility] Other - see comments N/A: Penis Coloplast Lux 09/20/2023 [id number] / N/A / [id number] Description:PENIAL PROSTHESI S Coloplast Lux [id number] Titan Coloplast Lock-Out Inflatable Self Contain Fluid Fill Valve Latex Free - Sn/A - [id number] Implanted:Qty: 1 on 03/18/2019 by Angel Kiran MD at [facility] Other - see comments N/A: Penis Coloplast Lux 10/07/2023 [id number] / N/A / [id number] Description:PENILE PROSTHESI S Coloplast Lux [id number] Pros 0d Cyl 20cm Penile Ttn Otr Scrotum - Sn/A - [id number] Implanted:Qty: 1 on 03/18/2019 by Angel Kiran MD at [facility] Other - see comments N/A: Penis Coloplast Lux 11/29/2023 [id number] / N/A / [id number] Description:PENILE PROSTHESI S Stent Heart Description:x2 Insurance MEDICARE [facility] MEDICARE [facility] MEDICARE [facility] Advance Directives For more information, please contact: [phone] * Full Code (Latest Code Status on File) Date Activated Date Inactivated Comments 03/18/2019 2:27 PM 03/19/2019 6:43 PM Care Teams Dope Heater Relationship Specialty Start Date End Date Dickson Land MD [address] [facility] [address] [place] [address] PCP - General Family Medicine 01/27/19 Dionicio Carrasquillo MD [address] [facility] [address] [place] [address] Surgeon Surgery 03/05/23
--- OUTSIDE RECORDS SUMMARY | 2025-01-04 05:49 | XMS_ITS | Clinical Summary ---
Author Organization [facility] Address [address] [place] [address] Phone Care Team Providers Care Display Mechanic Name Role Phone Dickson Land MD Primary Care Provider [phone] Allergies No known active allergies Medications allopurinol [...] (01/28/2021): Added automatically from request for surgery [id number] Immunizations Immunization Administration Dates Next Due Sars-cov-2, [...] Ended) 2025 05/31/2019, 05/25/2018, 08/07/2016 Insurance MEDICARE [facility] Care Teams Display Mechanic Relationship Specialty Start Date End Date Dickson Land MD [address] [facility] [address] [place] [id number] PCP - General Internal Medicine 12/28/20
--- OUTSIDE RECORDS SUMMARY | 2025-01-04 05:50 | XMS_ITS | Encounter Summary ---
Author Organization [facility] Address [address] [place] [address] Care Team Providers Care Tank Pumper Name Role Phone Dickson Land MD Primary Care Provider Dionicio Carrasquillo MD Unavailable [phone] Encounter Details Date Type Department Care Team (Late st Contact Info) Description 02/06/2024 Orders Only [facility] Health Information Management [address] [place] [address] Scanning, Provider Social History Tobacco Use Types [...] on filedocumented in this encounter Care Teams Tank Pumper Relationship Specialty Start Date End Date Dickson Land MD [address] [facility] [address] [place] [address] PCP - General Family Medicine 01/27/19 Dionicio Carrasquillo MD [address] [facility] [address] [place] [address] Surgeon Surgery 03/05/23 documented as of this encounter
--- OUTSIDE RECORDS SUMMARY | 2025-01-04 05:50 | XMS_ITS | Encounter Summary ---
Author Organization [facility] Healthcare Address [address] [place] [address] Care Team Providers Care E Commerce Analyst Name Role Phone Dickson Land MD Primary Care Provider Dionicio Carrasquillo MD Unavailable [phone] Encounter Details Date Type Department Care Team (Late st Contact Info) Description 12/08/2023 Telephone [facility] at [facility] [address] [facility] [address] [place] [address] Dionicio Carrasquillo MD [address] [place] [id number] Social History Tobacco Use Types Packs/Day Years [...] on filedocumented in this encounter Care Teams E Commerce Analyst Relationship Specialty Start Date End Date Dickson Land MD [address] [facility] [address] [facility] 120 [place] [address] PCP - General Family Medicine 01/27/19 Dionicio Carrasquillo MD [address] [facility] [address] [place] [address] Surgeon Surgery 03/05/23 documented as of this encounter
--- OUTSIDE RECORDS SUMMARY | 2025-01-04 05:50 | XMS_ITS | Encounter Summary ---
Author Organization [facility] Healthcare Address [address] [place] [address] Care Team Providers Care Billet Sawyer Name Role Phone Dickson Land MD Primary Care Provider Dionicio Carrasquillo MD Unavailable [phone] Encounter Details Date Type Department Care Team (Late st Contact Info) Description 03/21/2019 Documentation [facility] Case Management [address] [place] [address] Opal Crawley RN Social History Tobacco Use [...] on filedocumented in this encounter Care Teams Billet Sawyer Relationship Specialty Start Date End Date Dickson Land MD [address] [place] [address] PCP - General Family Medicine 01/27/19 Dionicio Carrasquillo MD [address] [facility] [address] [place] [address] Surgeon Surgery 03/05/23 documented as of this encounter
--- OUTSIDE RECORDS SUMMARY | 2025-01-04 05:50 | XMS_ITS | Encounter Summary ---
Author Organization [facility] Healthcare Address [address] [place] [address] Care Team Providers Care Director Part Name Role Phone Dickson Land MD Primary Care Provider Dionicio Carrasquillo MD Unavailable [phone] Encounter Details Date Type Department Care Team (Late st Contact Info) Description 04/06/2024 Telephone [facility] at [facility] [address] [facility] [address] [place] [address] Dionicio Carrasquillo MD [address] [place] [address] Social History Tobacco Use Types Packs/Day Years [...] filedocumented in this encounter Care Teams Director Part Relationship Specialty Start Date End Date Dickson Land MD [address] [facility] [address] [facility] 120 [place] [address] PCP - General Family Medicine 01/27/19 Dionicio Carrasquillo MD [address] [facility] [address] [place] [address] Surgeon Surgery 03/05/23 documented as of this encounter
--- OUTSIDE RECORDS SUMMARY | 2025-01-04 05:51 | XMS_ITS | Encounter Summary ---
Author Organization [facility] Healthcare Address [address] [place] [address] Care Team Providers Care Bar Pilot Name Role Phone Dickson Land MD Primary Care Provider Dionicio Carrasquillo MD Unavailable [phone] Encounter Details Date Type Department Care Team (Late st Contact Info) Description 08/13/2023 Telephone [facility] at [facility] [address] [facility] [address] [place] [address] Dionicio Carrasquillo MD [address] [place] [address] Social History Tobacco Use Types Packs/Day Years [...] on filedocumented in this encounter Care Teams Bar Pilot Relationship Specialty Start Date End Date Dickson Land MD [address] [facility] [address] [facility] 120 [place] [address] PCP - General Family Medicine 01/27/19 Dionicio Carrasquillo MD [address] [facility] [address] [place] [address] Surgeon Surgery 03/05/23 documented as of this encounter
--- OUTSIDE RECORDS SUMMARY | 2025-01-04 05:51 | XMS_ITS | Encounter Summary ---
Author Organization [facility] Healthcare Address [address] [place] [address] Care Team Providers Care Cap Jewel Plate Assembler Name Role Phone Dickson Land MD Primary Care Provider Dionicio Carrasquillo MD Unavailable [phone] Encounter Details Date Type Department Care Team (Late st Contact Info) Description 02/04/2023 Telephone [facility] Medical Office Building [address] [address] Dionicio Carrasquillo MD [address] [place] [address] Social History Tobacco Use Types Packs/Day Years [...] on filedocumented in this encounter Care Teams Cap Jewel Plate Assembler Relationship Specialty Start Date End Date Dickson Land MD [address] [facility] [address] [facility] 120 [place] [address] PCP - General Family Medicine 01/27/19 Dionicio Carrasquillo MD [address] [facility] [address] [place] [address] Surgeon Surgery 03/05/23 documented as of this encounter
--- OUTSIDE RECORDS SUMMARY | 2025-01-04 05:51 | XMS_ITS | Encounter Summary ---
Author Organization [facility] Healthcare Address [address] [place] [address] Care Team Providers Care Flash Oven Operator Name Role Phone Dickson Land MD Primary Care Provider Dionicio Carrasquillo MD Unavailable [phone] Encounter Details Date Type Department Care Team (Late st Contact Info) Description 07/03/2023 Telephone [facility] at [facility] [address] [facility] [address] [place] [address] Lance Carrasquillo MD [address] [place] [address] [address] [place] [address] Social History Tobacco Use Types Packs/Day Years [...] on filedocumented in this encounter Care Teams Flash Oven Operator Relationship Specialty Start Date End Date Dickson Land MD [address] [facility] [address] [facility] 120 [place] [address] PCP - General Family Medicine 01/27/19 Dionicio Carrasquillo MD [address] [facility] [address] [place] [address] Surgeon Surgery 03/05/23 documented as of this encounter
--- OUTSIDE RECORDS SUMMARY | 2025-01-04 05:51 | XMS_ITS | Clinical Summary ---
Author Organization [facility] Address [address] [place] [address] Care Team Providers Care Window Unit Air Conditioning Mechanic Name Role Phone Dickson Land MD Primary Care Provider [phone] Allergies No known active allergies Medications allopurinol [...] as needed. Indications: Allergic Conjunctivitis 03/05/20 Active Hudson-3 Fatty Acids (FISH OIL) 1200 MG Cap [...] renal disease) ([facility]) 02/26/2022 DELANEY (acute kidney injury) 02/26/2022 Hypotension 02/26/2022 NSTEMI (non-ST elevated myoc ardial infarction) ([facility]) 02/04/2022 Stage 4 chronic kidney disease ([facility]) 07/26/2021 Immunizations Immunization Administration Dates Next Due [...] Comments Blood Pressure 79/60 08/02/2024 4:40 AM CABBAGE SALTER Pulse 99 08/02/2024 4:40 AM CABBAGE SALTER Temperature 36.1 C (97 F) 08/02/2024 4:40 AM CABBAGE SALTER Respiratory Rate 16 08/02/2024 4:40 AM CABBAGE SALTER Oxygen Saturation 100% 08/02/2024 4:40 AM CABBAGE SALTER Inhaled Oxygen Concentration - - Weight 108.1 kg (238 lb 5.1 oz) 08/02/2024 2:48 AM CABBAGE SALTER Height 188 cm (6' 2 ) 08/02/2024 2:48 AM CABBAGE SALTER Body Mass Index 30.6 08/02/2024 2:48 AM CABBAGE SALTER Plan of Treatment Health Maintenance Due Date [...] this topic Medical Devices Implanted Type Area Underwater Welder Device Identifier Shelf Expiration Date Model / Serial / Lot Arrow Next Step Retrograde Hemodialysis Catheter Implanted:Qty: 1 on 02/11/2022 by Kelton Palm MD at [facility] Catheter Implant Right: Neck [employer] [id number] 08/23/2024 [id number] / [id number] Description:Right internal j ugular Procedures Procedure Name Priority Date/Time Associated Diagnosis Comments LIPID PANEL Routine 02/04/2022 6:40 AM CDT from Last 3 Months or Most Recently Relevant to Health Maintenance Results * (ABNORMAL) LIPID PANEL (02/04/2022 6:40 AM CDT) CHOLESTEROL 119 <200 MG/DL 02/04/2022 7:24 AM CDT [facility] TRIGLYCERIDES 130 <150 MG/DL 02/04/2022 7:24 AM CDT [facility] HDL 31(L) >40.0 MG/DL 02/04/2022 7:24 AM CDT [facility] LDL (CALCULATED) 62 <100 MG/DL 02/05/20 7:24 AM CDT [facility] NON HDL CHOLESTEROL 88 <130 MG/DL 02/04 7:24 AM CDT [facility] CHOL/HDL RATIO 3.8 0.0 - 4.5 02/04/2022 7:24 AM CDT [facility] VLDL CALCULATION 26 5 - 55 MG/DL 02/04/2022 7:24 AM CDT [facility] LIPID INTERPRETATION 02/04/2022 7:24 AM CDT [facility] Comment: [facility] CONCENSUS REPORT RECOMMENDATIONS: ADULT CHILD LOW RISK: CHOLESTEROL <200 <170 TRIGLYCERIDE <150 --- HDL >=60 --- LDL <100 <110 BORDERLINE: CHOLESTEROL 200-239 170-199 TRIGLYCERIDE 150-199 --- HDL 40-59 --- LDL 100-159 110-129 HIGH RISK: CHOLESTEROL >=240 >=200 TRIGLYCERIDE >=200 --- HDL <40 --- LDL >=160 >=130 02/04/2022 6:40 AM CDT Maria M Ott DO LABORATORY Final Result [facility] [address] [place] [address], [place] [phone] from Last 3 Months or Most Recently Relevant to Health Maintenance Insurance MEDICARE [facility] Advance Directives Documents on File Type Date Recorded Patient Gis Database Administrator Expl anation Power of Patient Care Associate * Full Code (Latest Code Status on File) Date Activated Date Inactivated Comments 03/24/2022 6:02 PM 07/13/2022 6:40 AM * Full Code Date Activated Date Inactivated Comments 02/04/2022 3:44 PM 02/21/2022 5:01 PM * DNR Date Activated Date Inactivated Comments 02/04/2022 2:37 AM 02/04/2022 3:44 PM Care Teams Window Unit Air Conditioning Mechanic Relationship Specialty Start Date End Date Dickson Land MD [address] [facility] [address] [place] [address] PCP - General FAMILY PRACTICE 03/25/19
[2025-01-04 05:58] LABS: Basophils Absolute Auto 0.1 K/mm3 (0.0-0.1); Basophils Percent Auto 0.8 % (0.2-1.2); Eosinophils Absolute Auto 0.2 K/mm3 (0-0.3); Hematocrit 29.3 % (42.0-52.0); Hemoglobin 9.3 g/dL (14.0-18.0); Immature Granulocyte Absolute 0.02 K/mm3 (0.00-0.031); Immature Granulocyte Percent A 0.3 % (0-0.5); Lymphocytes Absolute Auto 0.68 K/mm3 (0.9-3.2); Lymphocytes Percent Auto 11.4 % (18.3-44.2); Mean Corpuscular HGB Conc 31.7 g/dl (32-36); Mean Corpuscular Hemoglobin 35.2 pg (26-34); Mean Platelet Volume 9.5 fl (7.4-10.4); Monocytes Percent Auto 15.9 % (2.6-8.5); Neutrophils Absolute Auto 4.1 K/mm3 (1.3-6.7); Neutrophils Percent Auto 68.6 % (45.5-73.1); Platelet Count Result 179 k/mm3 (150-375); Red Blood Count 2.64 M/mm3 (4.6-6.20); Red Cell Distribution Width 14.4 % (11.5-14.5)
[2025-01-04 06:10] LABS: Alanine Aminotransferase 19 U/L (6-50); Albumin Level 3.5 g/dL (3.5-5.1); Alkaline Phosphatase 212 U/L (38-126); Anion Gap 8 mmol/L (4-12); Aspartate Amino Transferase 22 U/L (17-59); Blood Urea Nitrogen 41 mg/dL (9-20); Calcium 9.4 mg/dL (8.4-10.2); Carbon Dioxide 38 mmol/L (22-30); Chloride 93 mmol/L (98-107); Estimated CRCL calculation 8 ml/min; Estimated Glomerular Filt Rate 7; Glucose 104 mg/dL (65-110); Potassium 4.9 mmol/L (3.4-5.0); Sodium 139 mmol/L (137-145)
[2025-01-04 06:33] LABS: Macrocytosis 1+ (NORMAL); Platelet Estimate Adequate (Adequate); Schistocytes None Seen
== END 2025-01-04 09:22 | disposition home or self-care (01) ==
PROVIDERS: Emergency Provider Emergency Medicine; PCP Family Medicine
DX: S30.22XA Contusion of scrotum and testes, initial encounter (principal); I12.0 Hypertensive chronic kidney disease with stage 5 chronic kidney disease or end stage renal disease; N18.6 End stage renal disease; Z99.2 Dependence on renal dialysis; I25.2 Old myocardial infarction; I25.10 Atherosclerotic heart disease of native coronary artery without angina pectoris; E78.5 Hyperlipidemia, unspecified; K74.60 Unspecified cirrhosis of liver; K40.90 Unilateral inguinal hernia, without obstruction or gangrene, not specified as recurrent; G60.9 Hereditary and idiopathic neuropathy, unspecified; Z90.5 Acquired absence of kidney; Z85.528 Personal history of other malignant neoplasm of kidney; Z79.01 Long term (current) use of anticoagulants; Z79.899 Other long term (current) drug therapy; N43.3 Hydrocele, unspecified; W19.XXXA Unspecified fall, initial encounter
CPT/HCPCS: 36415; 76870; 80053; 85025; 93976; 99284

== ENCOUNTER 2025-02-28 10:30 | Outpatient (RCR) | payer MEDICARE, BC, SELFPAY ==
[2025-01-19 10:11] LABS: Platelet Count Result 196 k/mm3 (150-375)
[2025-01-19 10:21] LABS: INR 1.2; Prothrombin Time 15.2 Seconds (11.1-14.7)
--- NOTE | 2025-02-07 09:35 | CY_PTH ---
PATIENT: Russ Jimenez LOC: [facility] U#:[id number] AGE/SX: 84/M ROOM: RE02/28/[address]: Ruma Espinoza APRN : 1940 BED: DIS: 03/27/2025 SPEC #: [id number] RECD: 02/07/25 11:07 STATUS: AUGUSTA REAretha #: [id number] JULIET: 02/07/25 09:[address]: Ruma Espinoza DEPT: [facility] Cytology RECD BY: Gabriele Corbett ENTERED: 02/07/25 11:07 SP TYPE: Cytology OTHR DR: Dickson Land MD Tissues: A - Paracentesis Fluid Procedures: Hematoxylin and Eosin Stain Cell Block Cytopathology Smear Cytopathology Cytospin
[2025-02-07 11:05] LABS: Appearance Peritoneal Fluid Turbid (Clear); Color Peritoneal Fluid Other (Colorless); Neutrophils Peritoneal Fluid 0 % (0-25); Nucleated Cells Peritoneal Flu 610 /uL (0-500); Source Peritoneal Fluid Peritoneal Fluid
[2025-02-07 11:06] LABS: Lymphocytes Peritoneal Fluid 36 %; Macrophages Peritoneal Fluid 59 %; Mesothelial Cells Peritoneal Fluid 5 %
[2025-02-10 21:44] LABS: Albumin Peritoneal Fluid. 2.1 g/dL
--- NOTE | ~2025-02-28 | US_ITS ---
EXAMINATION: US paracentesis abd w/image DATE: 02/28/2025 11:13 INDICATION: Ascites. TECHNIQUE: The procedure and its risks and benefits were discussed with the patient. Potential risks discussed included bleeding and infection. The skin was prepped and draped in sterile fashion. 1% lid ocaine was used for local anesthesia. Under ultrasound guidance, a 5 Fr catheter with trochar was adv anced into the ascites in the left lower quadrant. Fluid was aspirated into vacuum bottles. The cole ter was removed, and a dressing was applied. There were no immediate complications. FINDINGS: Ultrasound images demonstrate ascites and the catheter within the fluid. IMPRESSION: 1. Successful ultrasound-guided paracentesis yielding 2200 mL of clear straw-colored fluid. Reviewed, dictated and finalized at location A. IMPRESSION: 1. Successful ultrasound-guided paracentesis yielding 2200 mL of clear straw-c olored fluid.
--- NOTE | ~2025-02-28 | US_ITS ---
EXAMINATION: US paracentesis abd w/image DATE: 01/20/2025 14:52 INDICATION: Cirrhosis with ascites TECHNIQUE: The procedure and its risks and benefits were discussed with the patient. Potential risks discussed included bleeding and infection. The skin was prepped and draped in sterile fashion. 1% lid ocaine was used for local anesthesia. Under ultrasound guidance, a 5 Fr catheter with trochar was adv anced into the ascites in the left lower quadrant. Fluid was aspirated into vacuum bottles. The cole ter was removed, and a dressing was applied. There were no immediate complications. FINDINGS: Ultrasound images demonstrate ascites and the catheter within the fluid. IMPRESSION: 1. Successful ultrasound-guided paracentesis yielding 2500 mL of cloudy hurd-colored fluid. Reviewed, dictated and finalized at location B. IMPRESSION: 1. Successful ultrasound-guided paracentesis yielding 2500 mL of cloudy hurd-co lored fluid.
--- NOTE | ~2025-02-28 | US_ITS ---
EXAMINATION: US paracentesis abd w/image DATE: 02/07/2025 09:48 INDICATION: Ascites. TECHNIQUE: The procedure and its risks and benefits were discussed with the patient. Potential risks discussed included bleeding and infection. The skin was prepped and draped in sterile fashion. 1% lid ocaine was used for local anesthesia. Under ultrasound guidance, a 5 Fr catheter with trochar was adv anced into the ascites in the left lower quadrant. Fluid was aspirated into vacuum bottles. The cole ter was removed, and a dressing was applied. There were no immediate complications. FINDINGS: Ultrasound images demonstrate ascites and the catheter within the fluid. IMPRESSION: 1. Successful ultrasound-guided paracentesis yielding 3600 mL of cloudy yellow fluid. Reviewed, dictated and finalized at location A.
== END 2025-03-27 23:59 | disposition home or self-care (01) ==
LOC: ANHIMG 10:30
PROVIDERS: Nurse Practitioner; Radiology Diagnostic Radiology; PCP Family Medicine; Visit Provider Nurse Practitioner Family
DX: K74.60 Unspecified cirrhosis of liver (principal); R18.8 Other ascites
CPT/HCPCS: 36415; 49083; 82042; 84157; 85049; 85610; 87070; 87075; 87205; 88104; 88108; 88305; 89051

== ENCOUNTER 2025-03-19 09:41 | Inpatient (IN) | payer MEDICARE, BC, SELFPAY ==
[2025-03-19] VITALS (38 sets, daily range): BP systolic 79–134; BP diastolic 44–81; PULSE 37–88; RESP 13–20; TEMP 36.4–37; O2SAT 88–100; BMI 26.6
--- NOTE | ~2025-03-19 | CT_ITS ---
History: Trauma PROCEDURE: CT head without contrast. COMPARISON: 07/31/2024 TECHNIQUE: Axial imaging of the head performed from the skull base to the vertex without IV contrast. Sagittal a nd coronal reformations obtained. DLP: 605 mGy-cm FINDINGS: The ventricles are enlarged. The dilatation of the ventricles is proportional to the degree of sulcal prominence, not uncommon in the senescent brain. Decreased attenuation is identified within the periventricular white matter, likely secondary to micr ovascular ischemic disease, in a patient of this age. There is no mass, mass effect or midline shift. There is no abnormal extra-axial fluid collection or intracranial hemorrhage. Visualized paranasal sinuses are clear. The mastoid air cells are well aerated. No acute displaced fractures within the overlying cranium. Impression: No acute intracranial hemorrhage or suspicious mass effect. Reviewed, dictated and finalized at location A. Impression: No acute intracranial hemorrhage or suspicious mass effect.
--- NOTE | ~2025-03-19 | XR_ITS ---
CHEST RADIOGRAPH CLINICAL HISTORY: syncope . COMPARISON: 07/31/2024 TECHNIQUE: Single portable view of the chest. FINDINGS Cardiac mediastinal silhouette is enlarged, unchanged. Increased interstitial markings are identified bilaterally, findings suggesting mild pulmonary vascul ar congestion. The remainder of the lungs are clear. IMPRESSION: Persisting cardiomegaly with mild pulmonary vascular congestion. The lungs are otherwise clear. Reviewed, dictated and finalized at location A.
--- NOTE | ~2025-03-19 | CT_ITS ---
History: Trauma PROCEDURE: CT cervical spine without intravenous contrast. COMPARISON: None TECHNIQUE: Multiple contiguous axial images of the cervical spine were performed without the administration of i ntravenous contrast. DLP: 486 mGy-cm FINDINGS: Significant degenerative disease is identified with ankylosis at multiple levels of both the vertebra l bodies and the lateral spinous processes. Dense ossification of the calvarium is also noted. No acute fractures are present. Bilateral pleural effusions are identified, left greater than right. Densely calcified atherosclerotic disease. The airway is patent. Impression: Severe degenerative disease, without acute fracture. Bilateral pleural effusions, left greater than right. Reviewed, dictated and finalized at location A. Impression: Severe degenerative disease, without acute fracture. Bilateral pleural effusions, left greater than right.
--- NOTE | 2025-03-19 09:49 | ECG_ITS ---
Test Date: 2025-03-19 09:44:48 Measurements Intervals [place] Rate: 48 P: 0 NE: 0 QRS: -55 QRSD: 204 T: 105 QT: 557 QTc: 500 Interpretive Statements ATRIAL FIBRILLATION WITH SLOW VENTRICULAR RESPONSE LEFT AXIS DEVIATION [QRS AXIS < -30] RIGHT BUNDLE BRANCH BLOCK [120+ ms QRS DURATION, UPRIGHT V1, 40+ ms S IN I/aVL/V4/V5/V6] WITH REPOLARIZATION CHANGES; CANNOT RULE OUT ISCHEMIA Compared to ECG 07/31/2024 09:36:18 Right bundle-branch block now present Possible ischemia now present Electronically Signed On 03-19-2025 17:59:31 CDT by Rian Howard M.D.
--- NOTE | 2025-03-19 09:50 | ED_ITS ---
HPI - General Adult General Chief complaint: Chest Pain Stated complaint: STEMI History of Present Illness HPI narrative: 84-year-old male with history of type 2 diabetes, hypertension, coronary artery disease, AFib, end-stage renal disease on dialysis presents emergency department for evaluation after having episode of lightheaded dizziness with a subsequent head injury. Patient states he was walking felt dizzy lightheaded had a fall and injury. EMS was called to the scene and they called a STEMI. EKG was shared with Cardiology and appeared to be a right bundle. Patient does have previous EKGs showing incomplete right bundle. Upon arrival emergency department patient denies any chest pain or shortness of breath but does complaint of head pain and associated lightheadedness. Patient does do dialysis on Thursday and Thursday and did go to dialysis on Thursday. Related Data Home Medications ?Medication ?Instructions ?Recorded ?Confirmed ?Last Taken ?Type nitroglycerin 0.4 mg sublingual 0.4 mg sublingual Q5M PRN Chest 11/26/20 02/28/25 Unknown History tablet Pain allopurinol 300 mg tablet 300 mg PO .M,W,F 08/19/24 02/28/25 Unknown History atorvastatin 20 mg tablet 40 mg PO DAILY 08/19/24 02/28/25 Unknown History gabapentin 300 mg capsule 300 mg PO .M,W,F 08/19/24 02/28/25 Unknown History midodrine 10 mg tablet 20 mg PO TID 02/15/25 02/28/25 Unknown History Allergies Allergy/AdvReac Type Severity Reaction Status Date / Time No Known Allergies Allergy Verified 03/19/25 09:55 Review of Systems 2 Review of Systems: All systems reviewed & are unremarkable except as noted in HPI and below [facility] Past Medical History Medical History (Updated 03/19/25 @ 17:16 by Ramiro Juan MD) Hypokalemia Dizziness Syncope and collapse Unspecified cirrhosis of liver Cirrhosis of liver with ascites History of heart attack Pleural effusion Retinal detachment Dialysis patient ESRD (end stage renal disease) Renal cell carcinoma s/p nephrectomy Chronic kidney disease, stage 4 (severe) Hy ht/kd 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 CAD in [place] artery CKD (chronic kidney disease) stage 3, GFR 30-59 ml/min HLD (hyperlipidemia) Idiopathic peripheral neuropathy Surgical History Surgical History History of tonsillectomy History of appendectomy History of left nephrectomy Family History Family History Other Cerebrovascular accident Heart disease Social History Social History Smoking status: Never smoker Second hand tobacco smoke exposure: No Alcohol intake: never Substance use: never Substance use type: does not use Do You Feel Safe in your Home?: Yes Lack of Transportation: No Lack of Food: Never True Current Housing: I Have Housing Concerned About Future Housing: No Difficulty Paying Gas/Electric Bills: No Difficulty Paying for Meds: No Currently Unemployed: No Education: Decline to Answer Difficulty w/ Childcare or Family Care: No Living arrangements: alone Occupation/Education: retired Gender identity (if verbalized by the patient): Male Sexual Orientation (if Verbalized by the Patient): Straight or Heterosexual Spiritual care concerns: No Exam 2 Narrative: APPEARANCE: No distress, well-nourished, tired appearing HEAD: normocephalic, atraumatic. EYES: PERRLA/EOMI, conjunctivae clear. NOSE: Normal no drainage EARS:TMS clear with good light reflex. THROAT: Pharynx clear, no exudate. NECK: Supple. No adenopathy, no masses. RESPIRATORY: Airway patent, respirations nonlabored. Clear to auscultation bilaterally, no rales, rhonchi, wheezing. CARDIOVASCULAR: Regular rate and rhythm without murmurs rubs or gallops. ABDOMINAL: Soft, nontender, nondistended, normal bowel sounds MUSCULOSKELETAL: Moves all extremities. Strength/ROM intact, No edema, No calf tenderness. NEURO: Alert. Cranial nerves II through XII intact. Good gait. Good coordination SKIN: Warm, dry. Normal Color Course Vital Signs Vital signs: Vital Signs Temperature 98.6 F 03/19/25 09:41 Pulse Rate 51 L 03/19/25 09:41 Respiratory Rate 13 03/19/25 09:41 Oxygen Delivery Room Air 03/19/25 09:41 Temperature 98.6 F 03/19/25 09:41 Pulse Rate 67 03/19/25 15:16 Respiratory Rate 16 03/19/25 15:15 Blood Pressure 84/64 L 03/19/25 15:15 Pulse Oximetry 100 03/19/25 15:16 Oxygen Delivery Nasal Cannula 03/19/25 10:50 Oxygen Flow Rate 3 03/19/25 10:50 Medical Decision Making MDM Narrative Medical decision making narrative: 84-year-old male presents emergency department for evaluation after having a fall and striking his head. Patient was initially called as a potential STEMI due to the right bundle-branch block noted on his EKG. Case was discussed with Cardiology and Dr. Howard did not feel this was an acute STEMI. Patient was chest pain-free and only complained posterior head pain from the fall. Patient states he does feel increasingly weak but other than headache denies any complaints. Denies any chest pain or shortness of breath. Patient states he did have approximately 3.5 L of fluid removed on Thursday this is greater than his typical 3 L. patient did receive a fluid bolus per EMS. Patient is currently afebrile with no leukocytosis hemoglobin 11.4. INR is 1.3. Patient did have a potassium of 3.0 and a calcium 5.4, calcium was replaced by IV. Head and cervical spine CT were negative. Chest x-ray did show some pulmonary edema. Patient does have a history of slow AFib and this was his EKG on initial presentation. On patient's previous visit he does have heart rates that are typically bradycardic and blood pressures that are in the 90 systolic range. This was the patient's vitals on [facility] emergency department but patient was alert orientated and and no distress. Case was discussed with hospitalist patient was accepted for admission to the IMU. Nephrology was consulted for anticipated dialysis on Thursday. Critical Care Procedure Note Authorized and Performed by: Ramiro Juan Total critical care time: Approximately 36 minutes Due to a high probability of clinically significant, life threatening deterioration, the patient required my highest level of preparedness to intervene emergently and I personally spent this critical care time directly and personally managing the patient. This critical care time included obtaining a history; examining the patient; pulse oximetry; ordering and review of studies; arranging urgent treatment with development of a management plan; evaluation of patient's response to treatment; frequent reassessment; and, discussions with other providers. This critical care time was performed to assess and manage the high probability of imminent, life-threatening deterioration that could result in multi-organ failure. It was exclusive of separately billable procedures and treating other patients and teaching time. Please see MDM section and the rest of the note for further information on patient assessment and treatment. Differential Diagnosis Differential Diagnosis: NSTEMI, STEMI, subdural hematoma, subarachnoid hemorrhage, cervical spine fracture, pneumonia, UTI, hypokalemia, hypo magnesemia Vital Signs Vital Signs: Vital Signs Temperature 98.6 F 03/19/25 09:41 Pulse Rate 51 L 03/19/25 09:41 Respiratory Rate 13 03/19/25 09:41 Oxygen Delivery Room Air 03/19/25 09:41 Temperature 98.6 F 03/19/25 09:41 Pulse Rate 67 03/19/25 15:16 Respiratory Rate 16 03/19/25 15:15 Blood Pressure 84/64 L 03/19/25 15:15 Pulse Oximetry 100 03/19/25 15:16 Oxygen Delivery Nasal Cannula 03/19/25 10:50 Oxygen Flow Rate 3 03/19/25 10:50 Lab Data Lab results reviewed: Yes I reviewed the patient's lab results. 03/19/25 16:30 03/19/25 09:54 Labs: Lab Results 03/19/25 03/19/25 03/19/25 Range/Units 09:53 09:54 11:49 WBC 5.0 (4.5-10.0) K/mm3 RBC 2.68 L (4.6-6.20) M/mm3 Hgb 9.6 L (14.0-18.0) g/dL Hct 29.3 L (42.0-52.0) % MCV 109.3 H (80-100) fl MCH 35.8 H (26-34) pg MCHC 32.8 (32-36) g/dl RDW 14.6 H (11.5-14.5) % Plt Count 160 (150-375) k/mm3 MPV 9.1 (7.4-10.4) fl Immature Gran % (Auto) 0.4 (0-0.5) % Neut % (Auto) 70.0 (45.5-73.1) % Lymph % (Auto) 15.0 L (18.3-44.2) % [place] % (Auto) 11.6 H (2.6-8.5) % Eos % (Auto) 2.2 (0-4.4) % Baso % (Auto) 0.8 (0.2-1.2) % Lymph # (Auto) 0.75 L (0.9-3.2) K/mm3 [place] # (Auto) 0.6 (0.1-0.6) K/mm3 Eos # (Auto) 0.1 (0-0.3) K/mm3 Baso # (Auto) 0.0 (0.0-0.1) K/mm3 Abs Immat Gran (auto) 0.02 (0.00-0.031) K/mm3 Absolute Neuts (auto) 3.5 (1.3-6.7) K/mm3 Absolute Nucleated RBC 0.000 (0.0-0.012) K/mm3 Band Neutrophils % Not Reportable Nucleated RBC % 0.0 (0.0-0.2) % Platelet Estimate Adequate (Adequate) Anisocytosis 1+ Schistocytes None seen PT 19.3 H (11.1-14.7) Seconds INR 1.7 APTT 36.8 (22.3-36.8) Seconds Sodium 142 (137-145) mmol/L Potassium 3.0 L (3.4-5.0) mmol/L Chloride 117 H (98-107) mmol/L Carbon Dioxide 19 L (22-30) mmol/L Anion Gap 6 (4-12) mmol/L BUN 26 H D (9-20) mg/dL Creatinine 3.54 H (0.7-1.3) mg/dL Estim Creat Clear Calc 16 ml/min Estimated GFR 17 L (59 - ) Glucose 60 L (65-110) mg/dL POC Capillary Glucose 113 H (65-105) mg/dl Hemoglobin A1c 4.7 (<5.7) % Calcium 5.4 L* (8.4-10.2) mg/dL Magnesium 1.6 (1.6-2.3) mg/dL Total Bilirubin 0.5 (0.2-1.3) mg/dL AST 10 L (17-59) U/L ALT 9 (6-50) U/L Alkaline Phosphatase 87 (38-126) U/L Troponin I 0.017 (0.000-0.034) ng/mL Total Protein 3.9 L (6.3-8.2) g/dL Albumin 1.7 L (3.5-5.1) g/dL 03/19/ Range/Units 13:28 WBC (4.5-10.0) K/mm3 RBC (4.6-6.20) M/mm3 Hgb (14.0-18.0) g/dL Hct (42.0-52.0) % MCV (80-100) fl MCH (26-34) pg MCHC (32-36) g/dl RDW (11.5-14.5) % Plt Count (150-375) k/mm3 MPV (7.4-10.4) fl Immature Gran % (Auto) (0-0.5) % Neut % (Auto) (45.5-73.1) % Lymph % (Auto) (18.3-44.2) % [place] % (Auto) (2.6-8.5) % Eos % (Auto) (0-4.4) % Baso % (Auto) (0.2-1.2) % Lymph # (Auto) (0.9-3.2) K/mm3 [place] # (Auto) (0.1-0.6) K/mm3 Eos # (Auto) (0-0.3) K/mm3 Baso # (Auto) (0.0-0.1) K/mm3 Abs Immat Gran (auto) (0.00-0.031) K/mm3 Absolute Neuts (auto) (1.3-6.7) K/mm3 Absolute Nucleated RBC (0.0-0.012) K/mm3 Band Neutrophils % Nucleated RBC % (0.0-0.2) % Platelet Estimate (Adequate) Anisocytosis Schistocytes PT (11.1-14.7) Seconds INR APTT (22.3-36.8) Seconds Sodium (137-145) mmol/L Potassium (3.4-5.0) mmol/L Chloride (98-107) mmol/L Carbon Dioxide (22-30) mmol/L Anion Gap (4-12) mmol/L BUN (9-20) mg/dL Creatinine (0.7-1.3) mg/dL Estim Creat Clear Calc ml/min Estimated GFR (59 - ) Glucose (65-110) mg/dL POC Capillary Glucose (65-105) mg/dl Hemoglobin A1c (<5.7) % Calcium (8.4-10.2) mg/dL Magnesium (1.6-2.3) mg/dL Total Bilirubin (0.2-1.3) mg/dL AST (17-59) U/L ALT (6-50) U/L Alkaline Phosphatase (38-126) U/L Troponin I 0.037 H* D (0.000-0.034) ng/mL Total Protein (6.3-8.2) g/dL Albumin (3.5-5.1) g/dL Imaging Data Radiologist's impression: Impressions Head CT 03/19/25 10:15 Impression: No acute intracranial hemorrhage or suspicious mass effect. Chest X-Ray 03/19/25 10:19 IMPRESSION: Persisting cardiomegaly with mild pulmonary vascular congestion. The lungs are otherwise clear. Cervical Spine CT 03/19/25 10:21 Impression: Severe degenerative disease, without acute fracture. Bilateral pleural effusions, left greater than right. Discharge Plan Discharge Clinical Impression: Generalized weakness, Atrial fibrillation with slow ventricular response, Acute hypokalemia, Hypocalcemia Patient Disposition: Still a Patient Condition: Serious
--- OUTSIDE RECORDS SUMMARY | 2025-03-19 09:52 | XMS_ITS | Encounter Summary ---
Author Organization [facility] Address [address] [place] [address] Care Team Providers Care Special Client Bus Driver Name Role Phone Dickson Land MD Primary Care Provider [phone] Reason for Visit * Reason Onset Date Comments A-FIB 08/02/2024 [employer] secure chat to [address] Steward[facility] Dialysis management 08/02/2024 Spoke w/Van at Dr. Larsen' [facility] Encounter Details Date Type Department Care Team (Late st Contact Info) Description 08/02/2024 Telephone [facility] Admitting [address] [place] [address] [place] [address] [place] [address] A-FIB ([employer] chat to Dr. Steward'[facility]); Dialysis [...] Time R/O GI Pathogen 08/02/2024 08/02/2024 08/03/2024 6:30 AM GUARD RAIL INST[employer]ER R/O C. diff 08/04/2024 08/04/2024 08/05/2024 7:00 AM GUARD RAIL INST[employer] documented as of this encounter Care Teams Special Client Bus Driver Relationship Specialty Start Date End Date Dickson Land MD [address] [facility] [address] [place] [id number] PCP - General Family Practice 04/17/22 documented as of this encounter
--- OUTSIDE RECORDS SUMMARY | 2025-03-19 09:52 | XMS_ITS | Referral Summary ---
Author Organization [facility] Address [address] [place] [address] Care Team Providers Care Operating Room Specialist Name Role Phone Dickson Land MD Primary Care Provider Dionicio Carrasquillo MD Unavailable [phone] Angel Chow MD Unavailable Encounters Date Type Department Care Team Description 03/14/2025 Telephone [facility] Cardiology [address] [place] [place] [address] Office [facility] [address] [place] [phone] Moraima Chaudhry RN valve conference 03/09/2025 Telephone [facility] Cardiology [address] [place] [place] [address] Office [facility] [address] [place] [phone] Moraima Chaudhry RN 03/09/2025 6:25 AM CDT - 03/09/2025 11:59 PM CDT Hospital Encounter [facility] Heart and Vascular [address] [phone] Blanquita Lang MD Nonrheumatic aortic (valve) stenosis Discharge Disposition: Discharge to home or self care 03/09/2025 9:40 AM CDT - 03/09/2025 11:30 AM CDT Surgery [facility] Vascular [address] [address] Palma Bauer MD Right Left Heart Catheterization with Coronary Angiography with or without Left Ventriculography [id number] 03/09/2025 8:47 AM CDT Anesthesia Event [facility] [place] [address] [place] [address] Blanquita Lang MD Gielow, Mathew Gregory, JODIE 03/09/2025 6:24 AM CDT - 03/09/2025 2:45 PM CDT Hospital Encounter [facility] [place] [address] [place] [address] Palma Bauer MD Nonrheumatic aortic (valve) stenosis Discharge Disposition: Discharge to home or self care 02/15/2025 Orders Only [facility] Scanning, Provider 02/13/2025 Results Follow-Up [facility] Cardiology [address] [facility] Medical Office Building 3 [address] [place] [address] Sharon Daniel MD ECG 12 lead, MCT Mobile Cardiac Telemetry Event Monitor 02/06/2025 Telephone [facility] Cardiology [address] [place] [address] Advanced Medicine 8th [place] [address] [place] [address] Sharon Daniel MD 02/06/2025 Telephone [facility] Cardiology [facility] Advanced Medicine 8th [place] [address] [place] [address] Sharon Daniel MD 02/06/2025 1:34 PM CDT - 02/06/2025 11:59 PM CDT Hospital Encounter [facility] Imaging [address] [place] [address] Sharon Daniel MD Essential hypertension; Nonrheumatic aortic (valve) stenosis Discharge Disposition: Discharge to home or self care 02/01/2025 Telephone [facility] Cardiology [address] [place] [address] Angel Chow MD 01/31/2025 4:15 PM CDT Lab [facility] [address] [facility] [place] [address] Cardiomyopathy, unspecified type (HCC); Abnormal finding of blood chemistry, unspecified; Heart disease, unspecified 01/31/2025 3:45 PM CDT Ancillary Procedure [facility] [address] [place] [address] 3 [address] [place] [phone] Essential hypertension; Nonrheumatic aortic (valve) stenosis; PAF (paroxysmal atrial fibrillation) (HCC) 01/31/2025 Telephone [facility] Cardiology [address] [place] [address] Advanced [facility] 8th [place] [address] [place] [phone] Tiffanie Fink RN 01/31/2025 Telephone [facility] Cardiology [address] [place] [address] 8th [place] [address] [place] [phone] Sharon Daniel MD 01/31/2025 2:30 PM CDT Office Visit [facility] Cardiology [address] [place] [address] Medical Office Building [address] [place] [phone] Sharon Daniel MD Essential hypertension (Primary Dx); Nonrheumatic aortic (valve) stenosis; Cardiomyopathy, unspecified type (HCC); PAF (paroxysmal atrial fibrillation) (HCC); Heart disease, unspecified; Abnormal finding of blood chemistry, unspecified; 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; Nonrheumatic mitral valve regurgitation; Shock circulatory (HCC); Renal cell carcinoma of left kidney (HCC); Biventricular heart failure (HCC); ESRD (end stage renal disease) on dialysis (HCC) 01/31/2025 1:15 PM CDT Ancillary Procedure [facility] [address] [place] [address] 3 [address] [place] [phone] Nonrheumatic aortic (valve) stenosis 01/25/2025 11:42 AM CDT - 01/25/2025 11:59 PM CDT Hospital Encounter [facility] [address] [place] [phone] Discharge Disposition: Discharge to home or self care 01/24/2025 Telephone [facility] Cardiology [address] [place] [address] 8th [place] [address] [place] [phone] Joleen Jo 01/09/2025 Telephone [facility] Medical [facility] Cardiology [address] [place] [address] Angel Chow MD 01/09/2025 11:30 AM CDT Office Visit [facility] Medical Group Cardiology at [address] [place] [phone] Angel Chow MD Nonrheumatic aortic (valve) stenosis (Primary Dx); Nonrheumatic mitral valve regurgitation; 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; Cardiomyopathy, unspecified type (HCC); PAF (paroxysmal atrial fibrillation) ([facility]); Other specified hypotension 01/03/2025 Telephone [facility] Cardiology [address] [place] [address] Angel Chow MD from Last [...] TO RASH FOR 2 WEEKS 3 Active lactulose 0.67 gram/mL solution TAKE 30ML(2 TABLESPOONSFUL) BY MOUTH TWICE DAILY FOR CONSTIPATION 4 Active docusate sodium (DOK) 100 mg tabletIndicatio ns:constipation Take 1 tablet (100 mg total) by mouth 2 (two) times a day Active atorvastatin (LIPITOR) 20 mg tabletIndicatio ns: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 Take 1 tablet (20 mg total) by mouth daily 90 tablet 1 5 Active midodrine (PROAMATINE) 10 mg tabletIndicatio ns:Other specified hypotension Take 1 tablet (10 mg total) by mouth 3 (three) times a day 270 tablet 3 5 01/10/20 26 Active Xdemvy 0.25 % drops 5 Active Active Problems Problem Noted Date Diagnosed Date Shock circulatory 02/13/2025 Renal cell carcinoma of left kidney 02/13/2025 Biventricular heart failure 02/13/2025 Arterial hypotension 01/09/2025 Cardiomyopathy 08/31/2024 Nonrheumatic mitral valve regurgitation 08/31/19 25 ESRD (end stage renal disease) on dialysis 12/03 Overview (12/03/2022): Added automatically from request for surgery [id number] Assessment & Plan (09/13/2024 9:37 AM DIALS SUPERVISOR): Patient is currently dialyzing through a right [...] proceed. Assessment & Plan (09/15/2023 3:15 PM DIALS SUPERVISOR): Impression: Patient is being dialyzed through a [...] dialysis. Assessment & Plan (08/11/2023 1:31 PM DIALS SUPERVISOR): Dialyzing through a right brachiocephalic fistula. States [...] any decrease in sensory motor has strong cq developer his hand is warm. He denies any [...] 03/10/2022 Assessment & Plan (08/11/2023 1:32 PM DIALS SUPERVISOR): Chronic controlled. Continue amiodarone Dizziness 01/27/2022 Sensorineural hearing loss (SNHL) of both ears 0 12/03/2021 Bilateral lower extremity edema 07/26/2021 Essential hypertension 04/09/2021 Assessment & Plan (09/13/2024 9:32 AM DIALS SUPERVISOR): Patient's blood pressure is now mostly labile and hypotensive. Continue midodrine as per his physician. Assessment & Plan (2024 10:49 AM CDT): Continue antihypertensives Assessment & Plan (09/15/2023 3:16 PM DIALS SUPERVISOR): Impression: Chronic and stable. Plan: Continue metoprolol Assessment & Plan (08/11/2023 1:24 PM DIALS SUPERVISOR): metoprolol Hyperlipidemia LDL goal <70 04/09/2021 Assessment & Plan (09/13/2024 9:31 AM DIALS SUPERVISOR): Controlled. Continue Lipitor Assessment & Plan (2024 10:49 AM CDT): Continue Lipitor Assessment & Plan (09/15/2023 3:16 PM DIALS SUPERVISOR): Impression: Chronic stable. Plan: Continue atorvastatin Assessment & Plan (08/11/2023 1:32 PM DIALS SUPERVISOR): Continue Lipitor Coronary artery disease of n ative artery of coushatta heart with stable angina pectoris 04/09/2021 Bilateral impacted cerumen 03/05/2021 Chronic eczematous otitis externa of left ear Erectile dysfunction 02/17/2019 Overview (02/17/2019): Added automatically from request for surgery [id number] Resolved Problems Problem Noted Date Diagnosed Date [...] you have a drink containing alc ohol? 2-4 times a month 03/09/2025 Q2: How many drinks containi ng alcohol do you have on a typical day when you are drinking? 1 or 2 03/09/2025 Q3: How often do you have si x or more drinks on one occasion? Never 03/09/2025 Personal Safety Answer Date Recorded Have you ever been in or are you currently in a harmful physical or emotional relationship or is someone making you feel afraid or unsafe? Denies 03/09/2025 Sex and Gender Information Value Date Recorded Sex Assigned at Not on file Legal Sex Male 8:18 AM CDT Gender Identity Not on file Sexual Orientation Not on file Last Filed Vital Signs Vital Sign Reading Time Taken Comments Blood Pressure 89/54 03/09/2025 2:05 PM CDT Pulse 43 03/09/2025 2:05 PM CDT Temperature 36.7 C (98.1 F) 03/09/2025 7:55 AM CDT Respiratory Rate 19 03/09/2025 2:05 PM CDT Oxygen Saturation 97% 03/09/2025 2:05 PM CDT Inhaled Oxygen Concentration - - Weight 88.7 kg (195 lb 8.8 oz) 03/09/2025 7:55 A M CDT Height 185.4 cm (6' 1) 03/09/2025 7:55 AM CDT Body Mass Index 25.8 03/09/2025 7:55 AM CDT Plan of Treatment Upcoming Encounters Date Type Department Care Team (Latest Contact Info) Description 04/27/2025 8:00 AM CDT Hospital Encounter [facility] [place] [address] [place] [address] Palma Bauer MD [address] [address] 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; Nonrheumatic aortic (valve) stenosis 04/27/2025 8:00 AM CDT - 04/27/2025 11:40 AM CDT Surgery [facility] [address] [place] [address] Palma Bauer MD [address] [address] PCI ROSALBA MAJOR CORONARY [id number] Goals Goal Patient Goal Type Associated Problems Recent Progress Patient-Stated? Author Autogenerat ed Goal Care Plan Autogenerated Problem No Shanon Palumbo Autogenerat ed Goal Care Plan Autogenerated Problem No Shanon Palumbo Medical Devices Implanted Type Area Toll Service Observer Device Identifier Shelf Expiration Date Model / Serial / Lot [employer] Lux Angio-Seal Vip 6fr Closere Device [id number] - [id number] - [id number] Implanted:Qty: 1 on 03/09/2025 by Palma Bauer MD at [facility] Collagen Right: Femoral [employer] Lux 11/03/2025 [id number] / [id number] / [id number] Description:RFA. Coloplast Lux [id number] Titan Lock-Out Inflatable Self Contain Fluid Fill Tube Standard Latex Free - Sn/A - [id number] Implanted:Qty: 1 on 03/18/2019 by Angel Kiran MD at [facility] Other - see comments N/A: Penis Coloplast Lux 09/20/2023 [id number] / N/A / [id number] Description:PENIAL PROSTHESI S Coloplast Lux [id number] Titan Coloplast Lock-Out Inflatable Self Contain Fluid Fill Valve Latex Free - Sn/A - [id number] Implanted:Qty: 1 on 03/18/2019 by Angel Kiran MD at [facility] Other - see comments N/A: Penis Coloplast Lux 10/07/2023 [id number] / N/A / [id number] Description:PENILE PROSTHESI S Coloplast Lux [id number] Pros 0d Cyl 20cm Penile Ttn Otr Scrotum - Sn/A - [id number] Implanted:Qty: 1 on 03/18/2019 by Angel Kiran MD at [facility] Other - see comments N/A: Penis Coloplast Lux 11/29/2023 [id number] / N/A / [id number] Description:PENILE PROSTHESI S Stent Heart Description:x2 Procedures Procedure Name Priority Date/Time Associated Diagnosis Comments RIGHT AND LEFT HEART CATHETERIZATION Routine 03/09/2025 11:15 AM CDT Nonrheumatic aortic (valve) stenosis POCT OXYHEMOGLOBIN - DEVICE Routine 03/09/2025 10:58 AM CDT POCT OXYHEMOGLOBIN - DEVICE Routine 03/09/2025 10:57 AM CDT POCT OXYHEMOGLOBIN - DEVICE Routine 03/09/2025 10:56 AM CDT TRANSESOPHAGEAL ECHO (ROBERT) W DOPPLER/CF WO CONTRAST Routine 03/09/2025 10:10 AM CDT Nonrheumatic aortic (valve) stenosis EGFR STAT 03/09/2025 8:14 AM CDT BASIC METABOLIC PANEL STAT 03/09/2025 8:14 AM CDT PROTIME-INR STAT 03/09/2025 8:14 AM CDT CBC WITHOUT DIFFERENTIAL STAT 03/09/2025 8:14 AM CDT POC BLOOD GAS AND CHEMISTRIES, ARTERIAL Routine 03/09/2025 8:[address] TAVR Schedule Routine, Read Routine (OP Routine) 02/06/2025 2:01 PM CDT Essential hypertension Nonrheumatic aortic (valve) stenosis EGFR Routine 01/31/2025 4:08 PM CDT Cardiomyopathy, unspecified type (HCC) DIFFERENTIAL AUTO Routine 01/31/2025 4:0 8 PM CDT Cardiomyopathy, unspecified type (HCC) PRO B-TYPE NATRIURETIC PEPTIDE Routine 01/31/2025 4:08 PM CDT Cardiomyopathy, unspecified type (HCC) COMPREHENSIVE METABOLIC PANEL Routine 01/31/2025 4:08 PM CDT Cardiomyopathy, unspecified type (HCC) CBC WITH AUTO DIFFERENTIAL Routine 01/31/2025 4:08 PM CDT Cardiomyopathy, unspecified type (HCC) LIPOPROTEIN A (LPA) Routine 01/31/2025 4 :08 PM CDT Cardiomyopathy, unspecified type (HCC) Heart disease, unspecified HEMOGLOBIN A1C Routine 01/31/2025 4:08 PM CDT Cardiomyopathy, unspecified type (HCC) Abnormal finding of blood chemistry, unspecified PROTIME-INR Routine 01/31/2025 4:08 PM CDT Cardiomyopathy, unspecified type (HCC) CRP, HIGH SENSITIVITY Routine 01/31/2025 4:08 PM CDT Cardiomyopathy, unspecified type (HCC) MCT - MOBILE CARDIAC TELEMETRY EVENT MONITOR Routine 01/31/2025 3:56 PM CDT Essential hypertension Nonrheumatic aortic (valve) stenosis PAF (paroxysmal atrial fibrillation) (HCC) ECG 12-LEAD Routine 01/31/2025 2:24 PM CDT Essential hypertension TRANSTHORACIC ECHO (TTE) COMPLETE W DOPPLER/CF W CONTRAST Routine 01/31/2025 2:01 PM CDT Nonrheumatic aortic (valve) stenosis US TRANSFER OF OUTSIDE FILMS Routine 01/25/2025 11:42 AM CDT from Last 3 Months Results * RIGHT AND LEFT HEART CATHETERIZATION (03/09/2025 11:15 AM CDT) Anatomical Region Laterality Modality X-Ray Angiograph y Impressions 03/09/2025 4:59 PM CDT Severe multivessel coronary disease. Elevated biventricular filling pressures with preserved cardiac output. Severe aortic stenosis. Severe tricuspid regurgitation. Moderate mitral regurgitation. Chronic HFrEF 30-35% ESRD. THERAPEUTIC RECOMMENDATIONS: Venous sheath was removed with manual pressure and arterial sheath was removed and site closed with Angioseal. Patient may sit up in 2 hours. The case was reviewed and discussed with the referring physician and patient. The referring physician will determine the future therapy and follow-up. Consideration of high risk PCI of LM/LAD/LCX and TAVR vs high risk surgery. Heart team approach. I was present during the entire procedure and personally dictated or confirmed the above report. Palma Bauer MD Assistant Front Office Managerplant operations coordinator Interventional and Structural Cardiology [facility] Narrative 03/09/2025 4:59 PM CDT Images from the original result were not included. Cardiovascular Procedure Center [facility] [address], [address] [place] [phone] RIGHT AND LEFT HEART CATHETERIZATION WITH CORONARY ANGIOGRAM REPORT Patient: Armen Jimenez : 1940 MR number: [id number] Date of Service: 03/09/2025 Manufacturing Industrial Engineer: Palma Bauer MD Fellow: Fanny Rogers MD Referring physician: Sharon Daniel MD INDICATION: Preoperative cardiac surgery PATIENT CLINICAL PROFILE: Armen Jimenez is a 84 y.o. male with a history of severe aortic stenosis, severe tricuspid regurgitation, and severe mitral regurgitation here for preoperative cardiac surgery coronary angiography and right heart catheterization. PROCEDURE: The risks, benefits and alternatives of the procedures and moderate sedation were explained to the patient and informed consent was obtained. The patient was brought to the poultry farm laborer and placed on the table. Bilateral groins were prepped and draped in the usual sterile fashion. The RIGHT femoral artery and RIGHT internal jugular vein site was infiltrated with 1% lidocaine. The vessel was accessed using a micropuncture kit and the modified Seldinger technique with a Micro needle, a wire was threaded into the vessel, and a 6 Fr Sheath was advanced over the wire into the artery and a 7 Fr Sheath was advanced over the wire into the vein. Left coronary artery angiogram was performed using a 6 Fr JL4 catheter. Right coronary artery angiogram was performed using a 6 Fr JR4 catheter. Left ventricular hemodynamics were measured using 6 [place] JR4 catheter, no left ventriculogram was done. PA catheterization was performed with 7 Fr TD [place] catheter with serial oxymetric sampling and hemodynamic measurement. At the end of the procedure, the right femoral artery sheath was removed and site closed with Angioseal. The venous sheath was removed with manual pressure for hemostasis. Patient was transferred to the holding area in stable condition. RESULTS: Hemodynamics: RA mean 20 mmHg RV 63/20mmHg PA 61/20/36 mmHg PAWP 24 with a V-wave up to 40 mmHg LV not measured due to known severe aortic stenosis Aorta 86/45/58 mmHg PA Sat 61% Ao Sat 96% Derived Calculations: Assumptions of BSA 2.1 m2, Hgb 11 g/dL, HR 50 bpm Transpulmonary gradient 12 mmHg Transsystemic Gradient 38 mmHg Cardiac Output Zeyad Cardiac Output (125 x BSA estimated VO2 265 ml/min) 5.1 L/min Zeyad Cardiac Index 2.4 L/min/m2 PVR 2.3 Wood Units SVR 596 dyn*s*cm-5 Coronary Arteriography: Left main coronary: Distal severe 70% calcified stenosis. Left anterior descending: Ostial severe 70% heavily calcified stenosis. Mid LAD severe 70% stenosis, heavily calcified. Major diag 1 and 2 no significant stenosis. Left circumflex: Ostial severe 80-90% stenosis. Mid to distal LCX no significant stenosis. Major OM1 and 2 no significant stenosis. Right coronary artery: Right dominant system. Ostial severe 70% heavily calcified stenosis. Prox RCA mild moderate 30-40% stenosis. Mid to distal RCA no significant stenosis. RPDA RPLA mild diffuse 30% stenosis. COMPLICATIONS: None. DIAGNOSTIC us Palma Bauer MD CV CARDIAC CATH PROCEDURE S Final Result * (ABNORMAL) POCT oxyhemoglobin (03/09/2025 10:58 AM CDT) AWS SOLUTION ARCHITECT Oxyhemoglobin 92.1 >=65.0 % [facility] Hemoglobin 11.1(L) 13.0 - 17.5 g/dL [facility] O2 content 14.2(L) 15.0 - 22.0 Vol % [facility] Anatomic Site aPOC Aorta ascend [facility] Blood 03/09/2025 10:5 8 AM CDT 03/09/2025 10:58 AM CDT us Palma Bauer MD LAB POCT ORDERABLES - DEV ICE Final Result Performing Organization Address City/[facility] Co de Phone Number [facility] [place] [address] * (ABNORMAL) POCT oxyhemoglobin (03/09/2025 10:57 AM CDT) AWS SOLUTION ARCHITECT Oxyhemoglobin 57.3(L) >=65.0 % [employer] ARCHITECT Hemoglobin 9.3(L) 13.0 - 17.5 g/dL [facility] AWS SOLUTION ARCHITECT O2 content 7.4(L) 15.0 - 22.0 Vol % [facility] Anatomic Site aPOC Pulm Art main [facility] Blood 03/09/2025 10:5 7 AM CDT 03/09/2025 10:57 AM CDT us Palma Bauer MD LAB POCT ORDERABLES - DEV ICE Final Result Performing Organization Address [facility] Co de Phone Number [facility] [place] [address] * (ABNORMAL) POCT oxyhemoglobin (03/09/2025 10:56 AM CDT) AWS SOLUTION ARCHITECT Oxyhemoglobin 65.9 >=65.0 % [employer] SOLUTION ARCHITECT Hemoglobin 10.5(L) 13.0 - 17.5 g/dL [facility] AWS SOLUTION ARCHITECT O2 content 9.6(L) 15.0 - 22.0 Vol % [facility] Anatomic Site aPOC Pulm Art main [facility] Blood 03/09/2025 10:5 6 AM CDT 03/09/2025 10:56 AM CDT us Palma Bauer MD LAB POCT ORDERABLES - DEV ICE Final Result Performing Organization Address City/[facility] Co de Phone Number [facility] [place] [address] * TRANSESOPHAGEAL ECHO (ROBERT) W DOPPLER/CF WO CONTRAST (03/09/2025 10:10 AM CDT) Anatomical Region Laterality Modality Echocardiography 03/09/2025 8:53 AM CDT Narrative 03/11/2025 1:13 AM CDT [facility] Card[facility] [place] [address] Transesophageal Echocardiographic Report Patient Name: ARMEN JIMENEZ W : 1940 (84y 11m) Gender: M Study Date: 03/09/2025 08:53:28 AM Ht(Inch): Wt(Lb): BSA: Senior Mainframe Developer: Location: 5517 Order Provider: PALMA BAUER BMI: Ref Provider: PALMA BAUER - PROCEDURES: Transesophageal Echo Report: Echocardiography, transesophageal, real-time with image documentation (2D) including probe placement, image acquisition, interpretation, and report; Doppler echocardiography, limited pulsed wave and/or continuous wave with spectral display; Doppler echocardiography color flow velocity mapping; 3D echocardiography, rendering with interpretation and reporting, not requiring post-processing on an independent workstation. Performing Physician: Performed by Leonardo Padilla. ROBERT probe placed by Angel Valentino. Consent: Informed consent was obtained from the patient in writing. The risks and benefits of the procedure were explained in detail to the patient, including but not limited to the risk of aspiration, dysphagia, and esophageal perforation. After a thorough discussion of these risks and benefits, the patient agreed to proceed. Description: A complete transesophageal echocardiogram study was performed. Additional evaluation with color flow Doppler and limited spectral Doppler was performed. Continuous HR, BP, ECG, and O2 sat monitoring was performed during the procedure. The patient received pre-procedural education. Baseline vital signs and a focused history and physical were obtained. The ROBERT study was then performed under deep sedation with IV propofol provided by the anesthesiology service. After suitable sedation, the probe was passed without difficulty. Continuous pulse oximetry, electrocardiographic monitoring, and blood pressure monitoring were maintained throughout the procedure. No complications were noted. Medications: Medication(s) given during the procedure: Propofol 240mg. Pre Vitals: HR: 49 bpm. RR: 13. BP: 95/52 mmHg. Sp02: 98 %. Post Vitals: HR: 50 bpm. RR: 20. BP: 86/60 mmHg. Sp02: 100 %. INDICATIONS: I35.0 Nonrheumatic aortic (valve) stenosis. FINDINGS: Left Ventricle: The left ventricle appears dilated. Left ventricular systolic function appears moderately reduced. Right Ventricle: The right ventricle appears dilated. Right ventricular systolic function appears moderately reduced. Left Atrium: Severely dilated left atrium. The left atrial appendage is normal in appearance with no evidence of thrombus. Right Atrium: Severely dilated right atrium. Atrial Septum: Normal interatrial septum. Mitral Valve: Mitral valve leaflets appear mildly thickened. Tethered P2 and P3 motion. Mitral annular calcification is present. Broad-based central to medial MR jet. Moderate to severe mitral valve regurgitation, 3D VC=0.3cm2. No stenosis present. The mean transmitral gradient is: 2.2 mmHg. Aortic Valve: Trileaflet aortic valve. Aortic cusps appear severely calcified. Aortic cusps appear severely restricted. Severe aortic valve stenosis. Aortic valve gradients are not reported due to underestimation. Tricuspid Valve: Normal tricuspid valve structure. There is severe tricuspid regurgitation originating between the septal and anterior leaflets. The regurgitant jet is broad based, eccentric, and extending to the center of the valve. 2D VC=0.8cm, 2D ERO=0.6cm2. Septal leaflet length 2 cm. There is no tricuspid stenosis. Pulmonic Valve: Normal pulmonic valve structure. No evidence of pulmonic regurgitation. Pericardium: Normal pericardium with no pericardial effusion. Aorta: There is moderate (2-4 mm) atheroma of the ascending aorta. Aorta is tortuous. IVC: The inferior vena cava is dilated. There is systolic flow reversal. Pulmonary Veins: The pulmonary venous flow pattern is diastolic predominant, suggestive of elevated left atrial pressure. Rhythm: The rhythm during the study was atrial fibrillation. Slow ventricular response (VR 40-50). CONCLUSIONS: 1. The left ventricle appears dilated. Left ventricular systolic function appears moderately reduced. 2. The right ventricle appears dilated. Right ventricular systolic function appears moderately reduced. 3. Mitral valve leaflets appear mildly thickened. Tethered P2 and P3 motion. Mitral annular calcification is present. Broad-based central to medial MR jet. Moderate to severe mitral valve regurgitation, 3D VC=0.3cm2. No stenosis present. The mean transmitral gradient is: 2.2 mmHg. 4. Trileaflet aortic valve. Aortic cusps appear severely calcified. Aortic cusps appear severely restricted. Severe aortic valve stenosis. Aortic valve gradients are not reported due to underestimation. 5. Normal tricuspid valve structure. There is severe tricuspid regurgitation originating between the septal and anterior leaflets. The regurgitant jet is broad based, eccentric, and extending to the center of the valve. 2D VC=0.8cm, 2D ERO=0.6cm2. Septal leaflet length 2 cm. There is no tricuspid stenosis. COMPARISONS: No previous study available for comparison. ATTESTATION: I have personally reviewed this study with a fellow in a teaching setting and attest to the findings and conclusions. - DISCLAIMER: The study images and the final report will be retained in the patient chart by the Echo Laboratory for the legally required time period. This chart constitutes the legal record of any testing performed. MEASUREMENTS: Doppler Value Range MV PHT 35 ms [ 20 - 100 ] MV Peak Piotr 1.1 m/s MV Peak PG 4.8 MV Mean PG 2.2 mmHg MR Peak Piotr 3.50 m/s MR Peak PG 49.00 MR Mean PG 28.44 mmHg Mv Alias Piotr 0.39 m/s MR VTI 125.4 cm MR Flow 1.20 ml/ses MR PISA 0.7 cm PISA ERO 0.3 cm2 PISA Regurgitant Volume 37.6 ml TR Peak Piotr 2.8 cm/sec [ 1.0 - 2.8 ] TR Peak PG 32.3 mmHg Electronically Signed By: Leonardo Padilla MD 03/11/2025 1:13:28 AM CDT Procedure Note Leonardo Padilla MD - 03/11/2025 [facility] [place] [address] Transesophageal Echocardiographic Report Patient Name: ARMEN JIMENEZ W : 1940 (84y 11m) Gender: M Study Date: 03/09/2025 08:53:28 AM Ht(Inch): Wt(Lb): BSA: Senior Mainframe Developer: Location: [id number] Order Provider: PALMA BAUER BMI: Ref Provider: PALMA BAUER - PROCEDURES: Transesophageal Echo Report: Echocardiography, transesophageal, real-timewith image documentation (2D) including probe placement, image acquisition,interpretation, and report; Doppler echocardiography, limited pulsed wave and/or continuouswave with spectral display; Doppler echocardiography color flow velocity mapping; 3D echocardiography, rendering with interpretation and reporting, notrequiring post-processing on an independent workstation. Performing Physician: Performed by Leonardo Padilla. ROBERT probe placed byAngel Valentino. Consent: Informed consent was obtained from the patient in writing. Therisks and benefits of the procedure were explained in detail to the patient,including but not limited to the risk of aspiration, dysphagia, and esophageal perforation.After a thorough discussion of these risks and benefits, the patient agreed toproceed. Description: A complete transesophageal echocardiogram study wasperformed. Additional evaluation with color flow Doppler and limited spectral Doppler wasperformed. Continuous HR, BP, ECG, and O2 sat monitoring was performed during the procedure. Thepatient received pre-procedural education. Baseline vital signs and a focusedhistory and physical were obtained. The ROBERT study was then performed under deepsedation with IV propofol provided by the anesthesiology service. After suitable sedation,the probe was passed without difficulty. Continuous pulse oximetry, electrocardiographicmonitoring, and blood pressure monitoring were maintained throughout the procedure. Nocomplications were noted. Medications: Medication(s) given during the procedure: Propofol 240mg. Pre Vitals: HR: 49 bpm. RR: 13. BP: 95/52 mmHg. Sp02: 98 %. Post Vitals: HR: 50 bpm. RR: 20. BP: 86/60 mmHg. Sp02: 100 %. INDICATIONS: I35.0 Nonrheumatic aortic (valve) stenosis. FINDINGS: Left Ventricle: The left ventricle appears dilated. Left ventricularsystolic function appears moderately reduced. Right Ventricle: The right ventricle appears dilated. Right ventricularsystolic function appears moderately reduced. Left Atrium: Severely dilated left atrium. The left atrial appendage isnormal in appearance with no evidence of thrombus. Right Atrium: Severely dilated right atrium. Atrial Septum: Normal interatrial septum. Mitral Valve: Mitral valve leaflets appear mildly thickened. Tethered P2and P3 motion. Mitral annular calcification is present. Broad-based central to medial MRjet. Moderate to severe mitral valve regurgitation, 3D VC=0.3cm2. No stenosis present.The mean transmitral gradient is: 2.2 mmHg. Aortic Valve: Trileaflet aortic valve. Aortic cusps appear severelycalcified. Aortic cusps appear severely restricted. Severe aortic valve stenosis. Aorticvalve gradients are not reported due to underestimation. Tricuspid Valve: Normal tricuspid valve structure. There is severetricuspid regurgitation originating between the septal and anterior leaflets. Theregurgitant jet is broad based, eccentric, and extending to the center of the valve. 2DVC=0.8cm, 2D ERO=0.6cm2. Septal leaflet length 2 cm. There is no tricuspid stenosis. Pulmonic Valve: Normal pulmonic valve structure. No evidence of pulmonicregurgitation. Pericardium: Normal pericardium with no pericardial effusion. Aorta: There is moderate (2-4 mm) atheroma of the ascending aorta. Aortais tortuous. IVC: The inferior vena cava is dilated. There is systolic flow reversal. Pulmonary Veins: The pulmonary venous flow pattern is diastolicpredominant, suggestive of elevated left atrial pressure. Rhythm: The rhythm during the study was atrial fibrillation. Slowventricular response (VR 40-50). CONCLUSIONS: 1. The left ventricle appears dilated. Left ventricular systolic functionappears moderately reduced. 2. The right ventricle appears dilated. Right ventricular systolicfunction appears moderately reduced. 3. Mitral valve leaflets appear mildly thickened. Tethered P2 and [id number]. Mitral annular calcification is present. Broad-based central to medial MR jet.Moderate to severe mitral valve regurgitation, 3D VC=0.3cm2. No stenosis present. Themean transmitral gradient is: 2.2 mmHg. 4. Trileaflet aortic valve. Aortic cusps appear severely calcified. Aorticcusps appear severely restricted. Severe aortic valve stenosis. Aortic valve gradientsare not reported due to underestimation. 5. Normal tricuspid valve structure. There is severe tricuspidregurgitation originating between the septal and anterior leaflets. The regurgitant jet is broadbased, eccentric, and extending to the center of the valve. 2D VC=0.8cm, 2D ERO=0.6cm2.Septal leaflet length 2 cm. There is no tricuspid stenosis. COMPARISONS: No previous study available for comparison. ATTESTATION: I have personally reviewed this study with a fellow in a teaching settingand attest to the findings and conclusions. - DISCLAIMER: The study images and the final report will be retained in the patientchart by the Echo Laboratory for the legally required time period. This chart constitutesthe legal record of any testing performed. MEASUREMENTS: Doppler Value Range MV PHT 35 ms [ 20 - 100 ] MV Peak Piotr 1.1 m/s MV Peak PG 4.8 MV Mean PG 2.2 mmHg MR Peak Piotr 3.50 m/s MR Peak PG 49.00 MR Mean PG 28.44 mmHg Mv Alias Piotr 0.39 m/s MR VTI 125.4 cm MR Flow 1.20ml/ses MR PISA 0.7 cm PISA ERO 0.3 cm2 PISA Regurgitant Volume 37.6 ml TR Peak Piotr 2.8 cm/sec [ 1.0 - 2.8 ] TR Peak PG 32.3 mmHg Electronically Signed By: Leonardo Padilla MD 03/11/2025 1:13:28 AM CDT Palma Bauer MD CV ECHO PROCEDURES Final Result * (ABNORMAL) eGFR (03/09/2025 8:14 AM CDT) eGFR 8(L) >=60 mL/min/1. 73 m2 Comment: Interpretive Data Reference Interval Normal >/= [...] Current interpretive data was last reviewed 2021. Blood 03/09/2025 8:14 AM CDT 03/09/2025 8:33 AM CDT us Palma Bauer MD LAB BLOOD ORDERABLES Karolina l Result [facility] Department [place] [address] * (ABNORMAL) Protime-INR (03/09/2025 8:14 AM CDT) PT 14.3(H) 9.7 - 13.0 sec INR 1.32(H) 0.90 - 1.20 [facility] Comment: Interpretive data Oral anticoagulant therapeutic ranges: Venous thromboembolism prophylaxis or treatment: 2.0-3.0 CARDIOLOGY Standard range: 2.0-3.0 High-intensity range: 2.5-3.5 Refer to indication-specific guidelines for appropriate target ranges for prosthetic heart valve replacement. Current interpretive data was last revised on 2019. Blood 03/09/2025 8:14 AM CDT 03/09/2025 8:22 AM CDT us Palma Bauer MD LAB BLOOD ORDERABLES Karolina l Result Performing Organization Address [facility] Co de Phone Number [facility] Department [place] [address] * (ABNORMAL) CBC without differential (03/09/2025 8:14 AM CDT) WBC 5.19 3.80 - 9.90 K/cumm Hgb 11.0(L) 13.0 - 17.5 g/dL [facility] Hct 33.3(L) 38.9 - 50.3 % [facility] Plt 161 150 - 400 K/cumm [facility] MPV 10.0 9.1 - 12.3 fL [facility] RBC 3.10(L) 4.30 - 5.80 M/cumm [facility] MCV 107.4(H) 81.3 - 96.4 fL [facility] MCH 35.5(H) 27.1 - 33.3 pg [facility] MCHC 33.0 32.3 - 35.7 g/dL [facility] RDW CV 14.7 11.1 - 14.9 % [facility] RDW SD 56.5(H) 35.7 - 48.1 fL [facility] NRBC abs 0.00 0.00 - 0.01 K/cumm [facility] Blood 03/09/2025 8:14 AM CDT 03/09/2025 8:22 AM CDT us Palma Bauer MD LAB BLOOD ORDERABLES Karolina l Result [facility] Department [place] [address] * (ABNORMAL) Basic metabolic panel (03/09/2025 8:14 AM CDT) [facility] Sodium 139 135 - 145 mmol/L Potassium, pl 5.9(H) 3.3 - 4.9 mmol/L [facility] Chloride 96(L) 97 - 110 mmol/L [facility] CO2 35(H) 22 - 32 mmol/L [facility] Anion gap 8 2 - 15 mmol/L [facility] BUN 34(H) 6 - 25 mg/dL [facility] Creatinine 6.68(H) 0.80 - 1.30 mg/dL [facility] Glucose 82 70 - 199 mg/dL [facility] Comment: Interpretive Data Fasting glucose >/= 126 [...] Current interpretive data was last revised 2022. Calcium 9.9 8.5 - 10.3 mg/dL [facility] Blood 03/09/2025 8:14 AM CDT 03/09/2025 8:22 AM CDT us Palma Bauer MD LAB BLOOD ORDERABLES Karolina l Result [facility] Department [place] [address] * (ABNORMAL) POC Blood Gas and Chemistries, Arterial - (03/09/2025 8:11 AM CDT) [facility] K POC 6.0(H) 3.3 - 4.9 mmol/L Comment: Interpretive Data Not all point of care methods assess for hemolysis. Confirm with instrument and retest K+ if not consistent with clinical signs and symptoms. Current Interpretive Data was last revised on 2023. Blood 03/09/2025 8:11 AM CDT 03/09/2025 8:11 AM CDT us Palma Bauer MD LAB POCT ORDERABLES - DEV ICE Final Result [facility] Department [place] [address] * CT TAVR (02/06/2025 2:01 PM CDT) Anatomical Region Laterality Modality Chest N/A Computed Tomogra phy 02/06/2025 4:14 PM CDT Impressions 02/07/2025 12:34 AM CDT 1. Aortic annulus, and abdominal aortic, common iliac, external iliac, and femoral artery measurements in preparation for TAVR procedure as described above. 2. Aortic valve calcium score: Agatston 3987, volume 3054 mm3. 3. Diffusely heterogeneous attenuation of the lumbar spine vertebral bodies and the pelvic bones; this could be seen with possible multiple myeloma or metastatic disease given patient's history of renal cell carcinoma. 4. Marked cardiomegaly and systemic fluid overload with small bilateral pleural effusions and moderate volume ascites. Dictated by: Flora Wei MD The radiology attending physician has personally reviewed this study, and had reviewed and/or edited this written report and agrees with it. Electronically signed by: Enoch Wright M.D. Narrative 02/07/2025 12:34 AM CDT EXAMINATION: CT TAVR HISTORY: Severe aortic stenosis, pre-TAVR procedure. 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 TECHNIQUE: Heart CT and CT angiogram of the abdomen and pelvis performed during intravenous administration of 100 mL of Optiray 350 per the TAVR Protocol. Images were transferred to an independent workstation for additional 3D post-processing. COMPARISON: None available FINDINGS: Annulus and thoracic aortic measurements (in systole): Aortic valve annulus: Area 747 mm2; circumference 102 mm; 37 mm maximum diameter x 26 mm minimum diameter Sinuses of Valsalva: 42 mm x 41 mm x 41 mm [id number] Sinotubular junction: 36 mm x 35 mm Distance to RCA ostium from aortic valve annulus: 28 mm Distance to left main ostium from annulus: 17 mm Deployment angle: 23 CHINESE, 0 Caudal Right coronary sinus height: 30 mm Left coronary sinus height: 24 mm Non-coronary sinus height: 27 mm Aortic valve calcium score: Agatston 3987, volume 3054 mm3 There is moderate left ventricular outflow tract calcification. There is mild mitral annular calcification. Coronary arteries: Anomalous coronary artery course: No Left main atherosclerosis: Severe LAD atherosclerosis: Severe Circumflex atherosclerosis: Severe RCA atherosclerosis: Severe Abdominal aortic and pelvic arterial smallest diameter measurements (made from centerline curved MPRs): Infrarenal aorta: 15 mm x 18 mm. There is moderate calcification. Right common iliac artery: 8 mm x 10 mm. There is moderate calcification. Left common iliac artery: 9 mm x 11 mm. There is moderate calcification. Right external iliac artery: 9 mm x 9 mm. There is mild calcification. Left external iliac artery: 8 mm x 9 mm. There is mild calcification. Right common femoral artery: 7 mm. There is mild calcification. Left common femoral artery: 7 mm. There is mild calcification. Other findings: Limited images of the neck with calcifications of the carotid artery bifurcations. Chest: Mild dilatation of the aortic root. Mild dilatation main pulmonary artery measuring up to 4.2 cm in maximum diameter, which can be seen in the setting of pulmonary hypertension. Marked cardiomegaly with four-chamber enlargement. No pericardial effusion. Prominent mediastinal lymph nodes, likely reactive. No supraclavicular or axillary lymphadenopathy. Normal thyroid. Nondistended esophagus. Central airways widely patent. Small bilateral pleural effusions. Trace pulmonary edema. Mild dependent atelectasis bilaterally. No parenchymal consolidation or suspicious pulmonary nodule. No pneumothorax. Abdomen/pelvis: No focal hepatic lesion. Nondistended gallbladder with small gallstones, no findings of acute cholecystitis. Normal spleen, pancreas, adrenal glands. Right kidney is atrophic with exophytic low-attenuation lesion likely reflecting renal cysts. Left kidney surgically absent. Nondistended urinary bladder. Mild prostatomegaly. Penile prosthesis present with reservoir in the left groin pain. Small large bowel normal caliber without obstruction. Colonic diverticulosis. There is moderate volume ascites. Fluid containing periumbilical hernia. Large right inguinal hernia containing fluid and a loop of large bowel. No abdominal or pelvic lymphadenopathy. No intraperitoneal free air. The abdominal aorta is non-aneurysmal. Diffusely heterogeneous attenuation of the lumbar vertebral bodies and pelvis with sclerotic appearance of the midthoracic vertebral bodies, with multiple lytic lesions of the lumbar vertebral bodies some of which are along the endplates. No pathologic fracture. Procedure Note Enoch Wright MD PhD - 02/07/2025 EXAMINATION: CT TAVR HISTORY: Severe aortic stenosis, pre-TAVR procedure. 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 TECHNIQUE: Heart CT and CT angiogram of the abdomen and pelvis performed during intravenous administration of 100 mL of Optiray 350 per the TAVR Protocol. Images were transferred to an independent workstation for additional 3D post-processing. COMPARISON: None available FINDINGS: Annulus and thoracic aortic measurements (in systole): Aortic valve annulus: Area 747 mm2; circumference 102 mm; 37 mm maximum diameter x 26 mm minimum diameter Sinuses of Valsalva: 42 mm x 41 mm x 41 mm [id number] Sinotubular junction: 36 mm x 35 mm Distance to RCA ostium from aortic valve annulus: 28 mm Distance to left main ostium from annulus: 17 mm Deployment angle: 23 CHINESE, 0 Caudal Right coronary sinus height: 30 mm Left coronary sinus height: 24 mm Non-coronary sinus height: 27 mm Aortic valve calcium score: Agatston 3987, volume 3054 mm3 There is moderate left ventricular outflow tract calcification. There is mild mitral annular calcification. Coronary arteries: Anomalous coronary artery course: No Left main atherosclerosis: Severe LAD atherosclerosis: Severe Circumflex atherosclerosis: Severe RCA atherosclerosis: Severe Abdominal aortic and pelvic arterial smallest diameter measurements (made from centerline curved MPRs): Infrarenal aorta: 15 mm x 18 mm. There is moderate calcification. Right common iliac artery: 8 mm x 10 mm. There is moderate calcification. Left common iliac artery: 9 mm x 11 mm. There is moderate calcification. Right external iliac artery: 9 mm x 9 mm. There is mild calcification. Left external iliac artery: 8 mm x 9 mm. There is mild calcification. Right common femoral artery: 7 mm. There is mild calcification. Left common femoral artery: 7 mm. There is mild calcification. Other findings: Limited images of the neck with calcifications of the carotid artery bifurcations. Chest: Mild dilatation of the aortic root. Mild dilatation main pulmonary artery measuring up to 4.2 cm in maximum diameter, which can be seen in the setting of pulmonary hypertension. Marked cardiomegaly with four-chamber enlargement. No pericardial effusion. Prominent mediastinal lymph nodes, likely reactive. No supraclavicular or axillary lymphadenopathy. Normal thyroid. Nondistended esophagus. Central airways widely patent. Small bilateral pleural effusions. Trace pulmonary edema. Mild dependent atelectasis bilaterally. No parenchymal consolidation or suspicious pulmonary nodule. No pneumothorax. Abdomen/pelvis: No focal hepatic lesion. Nondistended gallbladder with small gallstones, no findings of acute cholecystitis. Normal spleen, pancreas, adrenal glands. Right kidney is atrophic with exophytic low-attenuation lesion likely reflecting renal cysts. Left kidney surgically absent. Nondistended urinary bladder. Mild prostatomegaly. Penile prosthesis present with reservoir in the left groin pain. Small large bowel normal caliber without obstruction. Colonic diverticulosis. There is moderate volume ascites. Fluid containing periumbilical hernia. Large right inguinal hernia containing fluid and a loop of large bowel. No abdominal or pelvic lymphadenopathy. No intraperitoneal free air. The abdominal aorta is non-aneurysmal. Diffusely heterogeneous attenuation of the lumbar vertebral bodies and pelvis with sclerotic appearance of the midthoracic vertebral bodies, with multiple lytic lesions of the lumbar vertebral bodies some of which are along the endplates. No pathologic fracture. IMPRESSION: 1. Aortic annulus, and abdominal aortic, common iliac, external iliac, and femoral artery measurements in preparation for TAVR procedure as described above. 2. Aortic valve calcium score: Agatston 3987, volume 3054 mm3. 3. Diffusely heterogeneous attenuation of the lumbar spine vertebral bodies and the pelvic bones; this could be seen with possible multiple myeloma or metastatic disease given patient's history of renal cell carcinoma. 4. Marked cardiomegaly and systemic fluid overload with small bilateral pleural effusions and moderate volume ascites. Dictated by: Flora Wei MD The radiology attending physician has personally reviewed this study, and had reviewed and/or edited this written report and agrees with it. Electronically signed by: Enoch Wright M.D. us Sharon Daniel MD IMG CT PROCEDURES Final Result * (ABNORMAL) eGFR (01/31/2025 4:08 PM CDT) eGFR 9(L) >=60 mL/min/1. 73 m2 Comment: Interpretive Data Reference Interval Normal >/= [...] Current interpretive data was last reviewed 2021. Blood 01/31/2025 4:08 PM CDT 01/31/2025 4:31 PM CDT Sharon Daniel MD LAB BLOOD ORDERABLES Final Res ult [facility] [id number] [facility] [place] [address] * (ABNORMAL) Differential, auto (01/31/2025 4:08 PM CDT) Neutrophil abs 3.95 1.50 - 6.50 K/cumm Imm gran abs 0.02 0.00 - 0.10 K/cumm [facility] Lymphocyte abs 0.58(L) 0.80 - 3.30 K/cumm [facility] Monocyte abs 0.77 0.20 - 0.80 K/cumm [facility] Eosinophil abs 0.08 0.00 - 0.50 K/cumm [facility] Basophil abs 0.06 0.00 - 0.10 K/cumm [facility] Neutrophil pct 72.3 % [facility] Comment: Interpretive Data Percent cell count reference ranges are not reported, since discordance with absolute values may lead to misinterpretation of CBC data. Current Interpretive Data was last revised on 2017. Imm gran pct 0.4 % [facility] Comment: Interpretive Data Percent cell count reference ranges are not reported, since discordance with absolute values may lead to misinterpretation of CBC data. Current Interpretive Data was last revised on 2017. Lymphocyte pct 10.6 % [facility] Comment: Interpretive Data Percent cell count reference ranges are not reported, since discordance with absolute values may lead to misinterpretation of CBC data. Current Interpretive Data was last revised on 2017. Monocyte pct 14.1 % [facility] Comment: Interpretive Data Percent cell count reference ranges are not reported, since discordance with absolute values may lead to misinterpretation of CBC data. Current Interpretive Data was last revised on 2017. Eosinophil pct 1.5 % [facility] Comment: Interpretive Data Percent cell count reference ranges are not reported, since discordance with absolute values may lead to misinterpretation of CBC data. Current Interpretive Data was last revised on 2017. Basophil pct 1.1 % [facility] Comment: Interpretive Data Percent cell count reference ranges are not reported, since discordance with absolute values may lead to misinterpretation of CBC data. Current Interpretive Data was last revised on 2017. Blood 01/31/2025 4:08 PM CDT 01/31/2025 4:31 PM CDT us Sharon Daniel MD LAB BLOOD ORDERABLES Final Res ult [facility] [id number] [facility]. [place] [address] * (ABNORMAL) Pro B-type natriuretic peptide (01/31/2025 4:08 PM CDT) NT-proBNP 80,231(H) <=450 pg/mL Comment: Interpretive Comments: A. Dyspnea in Acute Care Setting All Ages: < 300 pg/ml, acute heart failure unlikely. < 50 yrs: 300 - 450 pg/ml, further investigation warranted. > 450 pg/ml, acute heart failure likely. 50 - 74 yrs: 300 - 900 pg/ml, further investigation warranted. > 900 pg/ml, acute heart failure likely . > or = 75 yrs: 450 - 1800 pg/ml, further investigation warranted. > 1800 pg/ml, acute heart failure likely. B. Non-acute Setting < 75 yrs < 125 pg/ml, rules out heart failure. > or = 125 pg/ml, further investigation warranted. > or = 75 yrs < 450 pg/ml, rules out heart failure. > or = 450 pg/ml, further investigation warranted. - Knowledge of each individual patient's NT-proBNP range may be more useful than using similar cut-points for every patient. Please note that marked elevations in NT-proBNP levels may be observed in state other than Left Ventricular Congestive Failure, including: acute coronary syndromes, right heart strain/failure (including pulmonary embolism and cor pulmonale), critical illness, renal failure, as well as advanced age. - References: 1. Adeline KEMP et.al. Eur Heart J. 2006:27:330-337. 2. Alexander RW, Garcia AM. J. AM Jenna Cardiol: Cardiovasc Imag. 2009;2: 216- 225. Interpretive Data Last Revised Date: 2018. Blood 01/31/2025 4:08 PM CDT 01/31/2025 4:31 PM CDT us Sharon aDniel MD LAB BLOOD ORDERABLES Final Res ult [facility] [address] [facility]. [place] [address] * (ABNORMAL) CBC with auto differential (01/31/2025 4:08 PM CDT) Pathologist [facility] WBC 5.46 3.80 - 9.90 K/cumm Hgb 10.7(L) 13.0 - 17.5 g/dL SARAH HUANG Hct 31.4(L) 38.9 - 50.3 % SARAH HUANG Plt 204 150 - 400 K/cumm SARAH HUANG MPV 10.3 9.1 - 12.3 fL SARAH HUANG RBC 2.85(L) 4.30 - 5.80 M/cumm SARAH HUANG MCV 110.2(H) 81.3 - 96.4 fL SARAH HUANG MCH 37.5(H) 27.1 - 33.3 pg SARAH HUANG MCHC 34.1 32.3 - 35.7 g/dL SARAH LESLIEW RDW CV 13.9 11.1 - 14.9 % SARAH HUANG RDW SD 55.0(H) 35.7 - 48.1 fL SARAH MCCRAY NRBC abs 0.00 0.00 - 0.01 K/cumm SARAH MCCRAY Blood 01/31/2025 4:08 PM CDT 01/31/2025 4:31 PM CDT us Sharon Daniel MD LAB BLOOD ORDERABLES Final Res ult SARAH MCCRAY [id number] [facility]. [place] [address] * Lipoprotein a (LPa) (01/31/2025 4:08 PM CDT) Lipoprotein A 55 <75 nmol/L [place] [facility] Comment: ADDITIONAL INFORMATION Please notice that Lp(a) values are reported in molar units (nmol/L). These units are recommended by professional society guidelines and expert opinion statements. Measured results and risk thresholds are higher than those generated using mass units (mg/dL). Cardiovascular risk increases starting at 75 nmol/L. Lp(a) >=125 nmol/L is considered a risk enhancing factor by the [place] [employer]. This test has been modified from the bunch maker hand's instructions. Its performance characteristics were determined by [facility] in a manner consistent with CLIA requirements. This test has not been cleared or approved by the U.S. Food and Drug Administration. Test Performed by: [facility] - [address] [address] [employer] Developer: Abel Grijalva Ph.D.; CLIA# [id number] Blood 01/31/2025 4:08 PM CDT 01/31/2025 4:31 PM CDT Sharon Daniel MD LAB BLOOD ORDERABLES Final Res ult Performing Organization Address [facility] de Phone Number SARAH [facility] [phone] [address] [employer] [place] [address] [place] [facility] * (ABNORMAL) Protime-INR (01/31/2025 4:08 PM CDT) PT 16.7(H) 9.7 - 13.0 sec INR 1.53(H) 0.90 - 1.20 SARAH HUANG Comment: Interpretive data Oral anticoagulant therapeutic ranges: Venous thromboembolism prophylaxis or treatment: 2.0-3.0 CARDIOLOGY Standard range: 2.0-3.0 High-intensity range: 2.5-3.5 Refer to indication-specific guidelines for appropriate target ranges for prosthetic heart valve replacement. Current interpretive data was last revised on 2019. Blood 01/31/2025 4:08 PM CDT 01/31/2025 4:31 PM CDT Shraon Daniel MD LAB BLOOD ORDERABLES Final Res ult Performing Organization Address [facility] de Phone Number SARAH [facility] [phone] [place] [place] [address] * CRP (cardiac risk) (01/31/2025 4:08 PM CDT) hsCRP 7.74 mg/L Comment: Interpretive data Adult only - values greater than or equal to 10 mg/L are consistent with infection or inflammation. Individuals with evidence of active infection, systemic inflammatory processes, or trauma should not be tested until these conditions have abated. When using HS CRP to assess cardiovascular risk, two measurements should be taken, two weeks apart (averaging results). The CDC/AHA recommended the following HS CRP cut off points (tertiles) for CVD assessment. Adult low risk <1.0 mg/L Average risk 1.0 - 3.0 mg/L High Risk >3.0 mg/L Current interpretive data was last revised on 2018. Blood 01/31/2025 4:08 PM CDT 01/31/2025 4:31 PM CDT Sharon Daniel MD LAB BLOOD ORDERABLES Edited Re sult - Final Performing Organization Address [facility] de Phone Number [facility] [phone] [employer] [place] [address] * Hemoglobin A1c (01/31/2025 4:08 PM CDT) Pathologist [facility] Hgb A1C 4.7 4.0 - 5.6 % Estimated Average Glucose 88 mg/dL SARAH MCCRAY Comment: The ADA recommends reporting an estimated Average Glucose (eAG) with all Hemoglobin A1c results using the equation derived from a study of 507 normal and diabetic adults. Minority populations were underrepresented and children were not included. (Diabetes Care 31:4028-2390, 2008). The eAG is not equivalent to a fasting glucose. Blood 01/31/2025 4:08 PM CDT 01/31/2025 4:31 PM CDT Sharon Daniel MD LAB BLOOD ORDERABLES Final Res ult Performing Organization Address [facility] Co de Phone Number SARAH LESLIEWCH [phone] [employer] [place] [address] * (ABNORMAL) Comprehensive metabolic panel (01/31/2025 4:08 PM CDT) Pathologist [facility] Sodium 139 135 - 145 mmol/L Potassium, pl 4.8 3.3 - 4.9 mmol/L [facility]ER [facility] Chloride 92(L) 97 - 110 mmol/L [facility] CO2 35(H) 22 - 32 mmol/L [facility] Anion gap 13 2 - 15 mmol/L [facility] BUN 39(H) 6 - 25 mg/dL [facility] Creatinine 5.69(H) 0.80 - 1.30 mg/dL [facility] Glucose 93 70 - 199 mg/dL [facility] Comment: Interpretive Data Fasting glucose >/= 126 [...] Current interpretive data was last revised 2022. Calcium 10.3 8.5 - 10.3 mg/dL [facility] Bilirubin, total 1.1 0.1 - 1.2 mg/dL [facility] Protein, pl 7.3 6.5 - 8.5 g/dL [facility] Albumin 3.9 3.5 - 5.0 g/dL [facility] Alk phos 197(H) 40 - 130 Units/L [facility] ALT 18 7 - 55 Units/L [facility] AST 15 10 - 50 Units/L [facility] Comment:Hemolyzed; result ma y be falsely elevated. Blood 01/31/2025 4:08 PM CDT 01/31/2025 4:31 PM CDT us Sharon Daniel MD LAB BLOOD ORDERABLES Final Res ult SARAH [facility] [address] [facility]. [place] [address] * MCT Mobile Cardiac Telemetry Event Monitor (01/31/2025 3:56 PM CDT) Anatomical Region Laterality Modality Electrocardiogra phy 03/01/2025 11:5 9 PM CDT Narrative 03/03/2025 12:02 PM CDT [facility] Cardiac Diagnostic Lab [address] , [address] [place] [address] CARDIAC EVENT MONITOR REPORT Patient Name: ARMEN JIMENEZ W : 1940 (84y 11m) Gender: M Study Date: 03/01/2025 11:59:00 PM Ht(Inch): Wt(Lb): BSA: Tech: Location: [facility] Order Provider: SHARON DANIEL BMI: Ref Provider: SHARON DANIEL PROCEDURES: Event Report: [facility] MOBILE CARDIAC TELEMETRY EVENT MONITOR [[id number]]. Enrollment Period: 2025-01-31 00:00:00 through 2025-03-01 00:00:00. Location: [facility]. INDICATIONS: I10 Essential (primary) hypertension, I35.0 Nonrheumatic aortic (valve) stenosis, and I48.0 Paroxysmal atrial fibrillation. FINDINGS: Event Data: Min Rate: 25 BPM Min Rate Timestamp: 2025-02-10 04:57:00 Max Rate: 79 BPM Max Rate Timestamp: 2025-02-14 22:23:00 Mean Rate: 46 BPM SIGNIFICANT PAUSES: 0 >3 sec Protocol: Automatically Detected Events: 2 Stable: Sinus Bradycardia w/1st Degree AV Block/IVCD 3 Stable: 2nd Degree AVB Type 1 w/IVCD 1 Stable: Idioventricular Rhythm, Sinus Bradycardia 1 Stable: Junctional Bradycardia w/IVCD 6 Stable: Bradyarrhythmia w/1st Degree AV Block/IVCD/Morphology Change Manually Detected Events: no symptoms recorded. 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 There were 0 critical, 0 serious, and 16 stable events that occurred. *The predominant rhythm was Sinus Rhythm. *The Maximum Heart Rate recorded was 79 BPM, 10:23 PM 02/14, the Minimum Heart Rate recorded was 25 BPM, 04:57 AM 02/10 and the Average Heart Rate was 46 BPM. *There were 15,192 VE beats with a burden of 1 %. *There were 48,234 SVE beats with a burden of 3 %. *There were 3 manually detected events. CONCLUSIONS: 1. I have reviewed the PDF and all the ECG strips. I agree with the interpretations as detailed in the report. 2. The PDF can be found in the [facility] Patient chart. Please go to the Cardiology tab, click on the holter or event exam. Scroll to bottom where the ORDER-LEVEL Documents reside and click the blue link to the pdf. Electronically Signed By: Leoncio Soriano MD 03/03/2025 11:22:22 AM CDT Electronically Signed By: Leoncio Soriano MD 03/03/2025 11:22:22 AM CDT Procedure Note Leoncio Soriano MD - 03/03/2025 [facility] Cardiac Diagnostic Lab [address] , [address] [place] [address] CARDIAC EVENT MONITOR REPORT Patient Name: ARMEN JIMENEZ W : 1940 (84y 11m) Gender: M Study Date: 03/01/2025 11:59:00 PM Ht(Inch): Wt(Lb): BSA: Tech: Location: [facility] Order Provider: SHARON DANIEL BMI: Ref Provider: SHARON DANIEL PROCEDURES: Event Report: [facility] MOBILE CARDIAC TELEMETRY EVENT MONITOR [[id number]]. Enrollment Period: 2025-01-31 00:00:00 through 2025-03-01 00:00:00. Location: [facility]. INDICATIONS: I10 Essential (primary) hypertension, I35.0 Nonrheumatic aortic (valve)stenosis, and I48.0 Paroxysmal atrial fibrillation. FINDINGS: Event Data: Min Rate: 25 BPM Min Rate Timestamp: 2025-02-10 04:57:00 Max Rate: 79 BPM Max Rate Timestamp: 2025-02-14 22:23:00 Mean Rate: 46 BPM SIGNIFICANT PAUSES: 0 >3 sec Protocol: Automatically Detected Events: 2 Stable: Sinus Bradycardia w/1st Degree AV Block/IVCD 3 Stable: 2nd Degree AVB Type 1 w/IVCD 1 Stable: Idioventricular Rhythm, Sinus Bradycardia 1 Stable: Junctional Bradycardia w/IVCD 6 Stable: Bradyarrhythmia w/1st Degree AV Block/IVCD/Morphology Change Manually Detected Events: no symptoms recorded. 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 There were 0 critical, 0 serious, and 16 stable events that occurred. *The predominant rhythm was Sinus Rhythm. *The Maximum Heart Rate recorded was 79 BPM, 10:23 PM 02/14, the MinimumHeart Rate recorded was 25 BPM, 04:57 AM 02/10 and the Average Heart Rate was 46BPM. *There were 15,192 VE beats with a burden of 1 %. *There were 48,234 SVE beats with a burden of 3 %. *There were 3 manually detected events. CONCLUSIONS: 1. I have reviewed the PDF and all the ECG strips. I agree with theinterpretations as detailed in the report. 2. The PDF can be found in the [facility] Patient chart. Please go to theCardiology tab, click on the holter or event exam. Scroll to bottom where the ORDER-LEVELDocuments reside and click the blue link to the pdf. Electronically Signed By: Leoncio Soriano MD 03/03/2025 11:22:22 AM CDT Electronically Signed By: Leoncio Soriano MD 03/03/2025 11:22:22 AM CDT us Sharon Daniel MD CV CARDIAC SERVICES PROCEDURES Final Result * ECG 12 lead (01/31/2025 2:24 PM CDT) us Sharon Daniel MD ECG ORDERABLES Final Result * TRANSTHORACIC ECHO (TTE) COMPLETE W DOPPLER/CF W CONTRAST (01/31/2025 2:01 PM CDT) EF Mod BP 34 % CONS SCIMAGE Anatomical Region Laterality Modality Ultrasound 01/31/2025 1:00 PM CDT Narrative 02/02/2025 1:31 PM CDT [facility] Cardiac Diagnostic Lab [address] , [address] [place] [address] Transthoracic Echocardiographic Report Patient Name: ARMEN JIMENEZ W : 1940 (84y 10m) Gender: M Study Date: 01/31/2025 01:00:47 PM Ht(Inch): 74 Wt(Lb): 201.06 BSA: 2.18 Senior Mainframe Developer: Malka Larry, VAHIDCS, RCCS, ACS Location: [facility] Order Provider: SHARON DANIEL Heart Rate: 46 BMI: 25.81 BP: 81 / 49 Ref Provider: SHARON DANIEL PROCEDURES: Echocardiographic Report: Transthoracic complete echo with strain imaging and contrast, 2D, spectral and tissue Doppler, color flow Doppler, M-mode. Contrast: Contrast Enhancement was Employed: Due to suboptimal image quality with inadequate visualization of at least 2 of 16 LV wall segments in any view after initial imaging. Perflutren contrast was administered using the volume necessary to obtain adequate images. 0.8 ml Optison Administered, (2.2 ml wasted). INDICATIONS: I35.0 Nonrheumatic aortic (valve) stenosis. CONCLUSIONS: 1. Severely dilated left ventricle based on volume index. Eccentric LV hypertrophy. Moderately depressed left ventricular systolic function. The Ejection Fraction (Drummond's) is measured at 34 %. Grade III diastolic dysfunction (elevated LA pressure, restrictive physiology). The average global longitudinal strain is abnormal. 2. Right ventricular dilatation. Moderate right ventricular hypokinesis. 3. Severely calcified aortic valve leaflets. Severe aortic valve stenosis. The mean transaortic gradient is 43 mmHg. The aortic valve area by the continuity equation (using VTI) is 0.68 cm2. 4. Severe tricuspid regurgitation. 5. Normal pericardium without pericardial effusion. 6. Normal aortic root size when indexed. 7. IVC is dilated. 8. The Estimated PASP is : 29mmhg+RA pressure. ATTESTATION: I have personally reviewed and interpreted this study without fellow or resident. - DISCLAIMER: The study images and the final report will be retained in the patient chart by the Echo Laboratory for the legally required time period. This chart constitutes the legal record of any testing performed. FINDINGS: Left Ventricle: Severely dilated left ventricle based on volume index. Eccentric LV hypertrophy. Moderately depressed left ventricular systolic function. The Ejection Fraction (Drummond's) is measured at 34 %. Grade III diastolic dysfunction (elevated LA pressure, restrictive physiology). The average global longitudinal strain is abnormal. The LV global strain is: -11.4 %. Right Ventricle: Right ventricular dilatation. Moderate right ventricular hypokinesis. Left Atrium: Severely dilated left atrium. Right Atrium: Right atrial dilatation. Severely dilated right atrium. Mitral Valve: Mild mitral annular calcification. Moderate mitral valve regurgitation. No stenosis present. The mean transmitral gradient is: 1 mmHg. Aortic Valve: Trileaflet aortic valve. Severely calcified aortic valve leaflets. Severe aortic valve stenosis. The mean transaortic gradient is 43 mmHg. The aortic valve area by the continuity equation (using VTI) is 0.68 cm2. Aortic valve dimensionless index is 0.14. Tricuspid Valve: Normal tricuspid valve structure. Severe tricuspid regurgitation. No tricuspid valve stenosis. Pulmonic Valve: Normal pulmonic valve structure. Mild pulmonic regurgitation. No pulmonic valve stenosis present. Pericardium: Normal pericardium without pericardial effusion. Aorta: Normal aortic root size when indexed. Dilation of the ascending aorta when indexed. IVC: IVC is dilated. PASP: The Estimated PASP is : 29+rap mmHg. MEASUREMENTS: 2D/MM Value Range Doppler Value Range LVIDd 2D 5.89 cm [ 4.20 - 5.80 ] AV Peak Piotr 4.4 m/s [ 1.0 - 1.7 ] LVIDs 2D 5.44 cm [ 2.50 - 4.00 ] AV Peak PG 77.44 mmHg IVSd 2D 1.30 cm [ 0.60 - 1.00 ] AV Mean PG 43 mmHg LVPWd 2D 1.07 cm [ 0.60 - 1.00 ] AV VTI 126.1 cm LV Thickness Ratio 1.2 LVOT Peak Piotr 0.7 m/s [ 0.7 - 1.1 ] LV FS 2D 7.58 % [ 25.00 - 43.00 ] LVOT Peak PG 1.96 mmHg LV Mass 2D 306.01 g LVOT Mean PG 1 mmHg LV Mass Index 2D 140.37 g/m2 LVOT VTI 17.8 cm RWT 0.36 LVOT Diam 2.48 cm EDV Mod BP 263.18 ml [ 62.00 - 150.00 ] COSMO VTI 0.68 cm2 LV EDV Index 120.72 ml/m2 LVOT/AV VTI 0.14 - Dimensionless index (DVI) ESV Mod BP 173.08 ml [ 21.00 - 61.00 ] MV E Peak Piotr 1.0 m/s [ 0.6 - 1.3 ] EF Mod BP 34 % [ 52 - 72 ] MV A Peak Piotr 0.3 m/s [ 1.0 - 1.2 ] LV GLS -11.4 % [ -25.0 - -18.0 ] MV E/A 4.0 ratio [ 0.8 - 1.5 ] LA Length 4C 7.39 cm MV Peak Piotr 1.0 m/s LA Length 2C 7.18 cm MV Peak PG 4.00 mmHg LA Volume BP 129.84 ml MV Mean PG 1 mmHg LA Volume Index 59.56 ml/m2 [ 16.00 - 34.00 ] MV VTI 22.0 cm MV Annulus 2D 3.06 cm MV Decel Time 289.15 msec [ 104.00 - 258.00 ] RV Base Dimen 2D 5.3 cm [ 2.5 - 4.2 ] Med E` Piotr 3.2 cm/sec [ 8.0 - 25.0 ] TAPSE 1.61 cm [ 1.71 - 5.00 ] Lat E` Piotr 7.9 cm/sec [ 10.0 - 25.0 ] RA Volume 128.89 ml Average E/E` 18.02 RA Volume Index 59.12 ml/m2 MR Peak Piotr 4.7 m/s AoR Diam 2D 3.90 cm [ 3.10 - 3.70 ] MR Peak PG 88.36 mmHg Ao Root Index 1.79 cm/m2 [ 1.00 - 2.00 ] MR VTI 169.5 cm Asc Ao Diam 2D 4.17 cm MR PISA 0.9 Asc Ao Index 1.91 cm/m2 MR EROA 0.4 cm2 PISA Regurgitant Volume 67.8 ml MV Regurgitant Fraction 47 % RV S` 5.74 cm/sec TR Peak Piotr 2.8 m/s [ 1.0 - 2.8 ] TR Peak PG 31.4 mmHg TR VTI 98.4 cm PV Peak Piotr 0.6 m/s [ 0.4 - 0.8 ] PV Peak PG 1.44 mmHg PI Peak Piotr 2.5 m/s PI ED Piotr 120.43 m/sec PI Peak PG 24 mmHg PI PHT 159.63 sec Electronically Signed By: Sharon Daniel MD 02/02/2025 1:30:51 PM CDT CC: Sharon Daniel MD Procedure Note Sharon Daniel MD - 02/02/2025 [facility] Cardiac Diagnostic Lab [address] , [address] [place] [address] Transthoracic Echocardiographic Report Patient Name: ARMEN JIMENEZ W : 1940 (84y 10m) Gender: M Study Date: 01/31/2025 01:00:47 PM Ht(Inch): 74 Wt(Lb): 201.06 BSA: 2.18 Senior Mainframe Developer: Malka Larry, RDCS, RCCS, ACS Location: [facility] Order Provider:SHARON DANIEL Heart Rate: 46 BMI: 25.81 BP: 81 / 49 Ref Provider: SHARON DANIEL PROCEDURES: Echocardiographic Report: Transthoracic complete echo with strain imagingand contrast, 2D, spectral and tissue Doppler, color flow Doppler, M-mode. Contrast: Contrast Enhancement was Employed: Due to suboptimal imagequality with inadequate visualization of at least 2 of 16 LV wall segments in any viewafter initial imaging. Perflutren contrast was administered using the volume necessaryto obtain adequate images. 0.8 ml Optison Administered, (2.2 ml wasted). INDICATIONS: I35.0 Nonrheumatic aortic (valve) stenosis. CONCLUSIONS: 1. Severely dilated left ventricle based on volume index. Eccentric LVhypertrophy. Moderately depressed left ventricular systolic function. The EjectionFraction (Drummond's) is measured at 34 %. Grade III diastolic dysfunction (elevatedLA pressure, restrictive physiology). The average global longitudinal strain isabnormal. 2. Right ventricular dilatation. Moderate right ventricular hypokinesis. 3. Severely calcified aortic valve leaflets. Severe aortic valve stenosis.The mean transaortic gradient is 43 mmHg. The aortic valve area by the continuityequation (using VTI) is 0.68 cm2. 4. Severe tricuspid regurgitation. 5. Normal pericardium without pericardial effusion. 6. Normal aortic root size when indexed. 7. IVC is dilated. 8. The Estimated PASP is : 29mmhg+RA pressure. ATTESTATION: I have personally reviewed and interpreted this study without fellow orresident. - DISCLAIMER: The study images and the final report will be retained in the patientchart by the Echo Laboratory for the legally required time period. This chart constitutesthe legal record of any testing performed. FINDINGS: Left Ventricle: Severely dilated left ventricle based on volume index.Eccentric LV hypertrophy. Moderately depressed left ventricular systolic function. TheEjection Fraction (Drummond's) is measured at 34 %. Grade III diastolic dysfunction(elevated LA pressure, restrictive physiology). The average global longitudinal strainis abnormal. The LV global strain is: -11.4 %. Right Ventricle: Right ventricular dilatation. Moderate right ventricularhypokinesis. Left Atrium: Severely dilated left atrium. Right Atrium: Right atrial dilatation. Severely dilated right atrium. Mitral Valve: Mild mitral annular calcification. Moderate mitral valveregurgitation. No stenosis present. The mean transmitral gradient is: 1 mmHg. Aortic Valve: Trileaflet aortic valve. Severely calcified aortic valveleaflets. Severe aortic valve stenosis. The mean transaortic gradient is 43 mmHg. Theaortic valve area by the continuity equation (using VTI) is 0.68 cm2. Aortic valvedimensionless index is 0.14. Tricuspid Valve: Normal tricuspid valve structure. Severe tricuspidregurgitation. No tricuspid valve stenosis. Pulmonic Valve: Normal pulmonic valve structure. Mild pulmonicregurgitation. No pulmonic valve stenosis present. Pericardium: Normal pericardium without pericardial effusion. Aorta: Normal aortic root size when indexed. Dilation of the ascendingaorta when indexed. IVC: IVC is dilated. PASP: The Estimated PASP is : 29+rap mmHg. MEASUREMENTS: 2D/MM Value Range DopplerValue Range LVIDd 2D 5.89 cm [ 4.20 - 5.80 ] AV Peak Vel4.4 m/s [ 1.0 - 1.7 ] LVIDs 2D 5.44 cm [ 2.50 - 4.00 ] AV Peak PG77.44 mmHg IVSd 2D 1.30 cm [ 0.60 - 1.00 ] AV Mean PG43 mmHg LVPWd 2D 1.07 cm [ 0.60 - 1.00 ] AV KKP457.1 cm LV Thickness Ratio 1.2 LVOT Peak Vel0.7 m/s [ 0.7 - 1.1 ] LV FS 2D 7.58 % [ 25.00 - 43.00 ] LVOT Peak PG1.96 mmHg LV Mass 2D 306.01 g LVOT Mean PG1 mmHg LV Mass Index 2D 140.37 g/m2 LVOT VTI17.8 cm RWT 0.36 LVOT Diam2.48 cm EDV Mod BP 263.18 ml [ 62.00 - 150.00 ] COSMO VTI0.68 cm2 LV EDV Index 120.72 ml/m2 LVOT/AV VTI0.14 - Dimensionless index (DVI) ESV Mod BP 173.08 ml [ 21.00 - 61.00 ] MV E Peak Vel1.0 m/s [ 0.6 - 1.3 ] EF Mod BP 34 % [ 52 - 72 ] MV A Peak Vel0.3 m/s [ 1.0 - 1.2 ] LV GLS -11.4 % [ -25.0 - -18.0 ] MV E/A4.0 ratio [ 0.8 - 1.5 ] LA Length 4C 7.39 cm MV Peak Vel1.0 m/s LA Length 2C 7.18 cm MV Peak PG4.00 mmHg LA Volume BP 129.84 ml MV Mean PG1 mmHg LA Volume Index 59.56 ml/m2 [ 16.00 - 34.00 ] MV VTI22.0 cm MV Annulus 2D 3.06 cm MV Decel Epnu421.15 msec [ 104.00 - 258.00 ] RV Base Dimen 2D 5.3 cm [ 2.5 - 4.2 ] Med E` Vel3.2 cm/sec [ 8.0 - 25.0 ] TAPSE 1.61 cm [ 1.71 - 5.00 ] Lat E` Vel7.9 cm/sec [ 10.0 - 25.0 ] RA Volume 128.89 ml Average E/E`18.02 RA Volume Index 59.12 ml/m2 MR Peak Vel4.7 m/s AoR Diam 2D 3.90 cm [ 3.10 - 3.70 ] MR Peak PG88.36 mmHg Ao Root Index 1.79 cm/m2 [ 1.00 - 2.00 ] MR AVP060.5 cm Asc Ao Diam 2D 4.17 cm MR PISA0.9 Asc Ao Index 1.91 cm/m2 MR EROA0.4 cm2 PISA Regurgitant Volume 67.8 ml MV Regurgitant Fraction 47 % RV S` 5.74 cm/sec TR Peak Piotr 2.8 m/s [ 1.0 - 2.8] TR Peak PG 31.4 mmHg TR VTI 98.4 cm PV Peak Piotr 0.6 m/s [ 0.4 - 0.8] PV Peak PG 1.44 mmHg PI Peak Piotr 2.5 m/s PI ED Piotr 120.43 m/sec PI Peak PG 24 mmHg PI PHT 159.63 sec Electronically Signed By: Sharon Daniel MD 02/02/2025 1:30:51 PM CDT CC: Sharno Daniel MD us Sharon Daniel MD CV ECHO PROCEDURES Final Resul t * US Outside Reference (01/25/2025 11:42 AM CDT) Impressions [id number] - 01/25/2025 11:42 AM CDT These images are for Reference purposes only and have not been reviewed by [place] [facility] [facility] There will be no report generated by a [facility] Radiologist. Narrative [facility] - 01/25/2025 11:42 AM CDT EXAMINATION: Images For Reference Purposes Only us Hollis Bryan MD IMG US PROCEDURES Final Result [facility] from Last 3 Months Additional Health Concerns Active Problems Noted Date Diagnosed Date Autogenerated Problem 02/01/2025 Autogenerated Problem 03/14/2025 Insurance [facility] MEDICARE [facility] Advance Directives For more information, please contact: [phone] * Full Code (Latest Code Status on File) Date Activated Date Inactivated Comments 03/09/2025 2:33 PM 03/09/2025 10:08 PM * Full Code Date Activated Date Inactivated Comments 03/18/2019 2:27 PM 03/19/2019 6:43 PM Care Teams Operating Room Specialist Relationship Specialty Start Date End Date Dickson Land MD [address] [place] [address] PCP - General Family Medicine 01/27/19 Dionicio Carrasquillo MD [address] [facility] [address] [facility] [address] [place] [address] Surgeon Surgery 03/05/23 Angel Chow MD [address], [address] [place] [address] Consulting Physician Cardiology 01/24/25
--- OUTSIDE RECORDS SUMMARY | 2025-03-19 09:52 | XMS_ITS | Patient Health Record ---
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) Referred Organization [facility] Palliative Care [facility] Referred Provider WASHINGTON KENNY Referred Address [address], [place], [place],[address], General Notes 1 WORKING WITH RN HEMODIALYSIS ON SCHEDULING, I SPOKE WITH THE PATIENT [...] meals Orally Three times a day Active Amiodarone HCl 200 MG TAKE 1 TABLET BY M OUTH TWICE DAILY Oral Active Lactulose 10 GM/15ML TAKE 30ML(2 TABLESPOONSFUL) BY MOUTH TWICE DAILY FOR CONSTIPATION Oral Active Midodrine HCl 10 MG 2 tablets Oral three times a day Active Eliquis 5 MG TAKE 1 TABLET BY STEPHANIE TH TWICE DAILY Oral Active Social History Tobacco Use: Social History Observation Description Date Details (start date - stop date) Never Smoker NA - NA Tobacco Use/Smoking Question Answer Notes Are you a nonsmoker Problems Problem Type SNOMED Code ICD Code Onset Dates Problem Status W/U Status Risk Notes Problem Hypertensive heart AND chronic kidney disease with congestive heart failure (04023787477452) 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, or end stage renal disease (I13.2) Active confirmed Problem Biventricular congestive heart failure (21668580) 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) Active confirmed Problem Cirrhosis of liver (97155837) Cirrhosis of liver (K74.60) Active confirmed Problem 49805255 Afib (I48.91) Active confirmed Problem 91469175 End stage kidney disease (N18.6) Active confirmed Vital Signs Heart Rate 48 /min 03/13/2025 Temperature 97.3 degrees Fahrenheit 03/13/2025 Respiratory Rate 20 /min 03/13/2025 Blood pressure diastolic 43 mm Hg 03/13/2025 Oximetry 97 % 03/13/2025 Blood pressure systolic 78 mm Hg 03/13/2025 Encounters Encounter Location Date Provider Diagnosis [facility] [address] [place] [address] 09/20/2024 WASHINGTON ZOYA Hypertensive heart a nd chronic kidney disease with heart failure and with stage 5 chronic kidney disease, or end stage renal disease I13.2 ; Biventricular heart failure I50.82 ; Edema, peripheral R60.9 and Cirrhosis of liver K74.60 [facility] [address] [address] 10/18/2024 WASHINGTON ZOYA Hypertensive heart a nd chronic kidney disease with heart failure and with stage 5 chronic kidney disease, or end stage renal disease I13.2 ; Biventricular heart failure I50.82 ; Edema, peripheral R60.9 ; Cirrhosis of liver K74.60 ; Encounter for palliative care Z51.5 and Inguinal hernia K40.[address] [address] 11/22/2024 WASHINGTON ZOYA Biventricular heart failure I50.82 ; Cirrhosis of liver K74.60 ; Encounter for palliative care Z51.5 ; 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, or end stage renal disease I13.2 ; Afib I48.91 ; Hypotension I95.9 and Edema, peripheral R60.[address] [address] 12/06/2024 WASHINGTON ZOYA Biventricular heart failure I50.82 ; Cirrhosis of liver K74.60 ; Encounter for palliative care Z51.5 ; Afib I48.91 and Hypotension I95.[address] [address] 01/03/2025 WASHINGTON ZOYA Hypertensive heart a nd chronic kidney disease with heart failure and with stage 5 chronic kidney disease, or end stage renal disease I13.2 ; Biventricular heart failure I50.82 ; Cirrhosis of liver K74.60 ; Afib I48.91 ; Palliative care encounter Z51.5 and Hypotension I95.[address] [address] 01/31/2025 WASHINGTON ZOYA Biventricular heart failure I50.82 ; Hypotension I95.9 ; Cirrhosis of liver K74.60 ; End stage kidney disease N18.6 and Encounter for palliative care Z51.[address] [address] 02/14/2025 WASHINGTON ZOYA Biventricular heart failure I50.82 ; Cirrhosis of liver K74.60 ; Hypotension I95.9 ; 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, or end stage renal disease I13.2 ; Encounter for palliative care Z51.5 and Afib I48.[address] [place] [address] 03/13/2025 WASHINGTON ZOYA Biventricular heart failure I50.82 ; Cirrhosis of liver K74.60 ; End stage kidney disease N18.6 ; Palliative care encounter Z51.5 and Hypotension I95.9 [facility] [address] [address] 09/28/2024 WASHINGTON ZOYA [facility] [address] [place] [address] 02/01/2025 WASHINGTON ZOYA Assessments Encounter Date Diagnosis (ICD [...] (ICD-10 - I50.82) Continue follow up with intermodal dispatcher as scheduled Notify provider if there are any changes in symptoms 11/22/2024 Cirrhosis of liver (ICD-10 - K74.60) 12/06/2024 Biventricular heart failure (ICD-10 - I50.82) Continue all medications Low sodium diet along with fluid restriction Follow up with intermodal dispatcher 12/06/2024 Cirrhosis of liver (ICD-10 - K74.60) Continue medications Continue paracentesis as scheduled 01/03/2025 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, or end stage renal disease (ICD-10 - I13.2) Continue medication Continue dialysis 01/03/2025 Biventricular heart failure (ICD-10 - I50.82) Continue medication Follow up with cardiology as scheduled 01/31/2025 Hypotension (ICD-10 - I95.9) : Dr. Chow : will call to office for possible change in care midodrine at max dose Possible heart failure symptoms with fatigue ER for any symptomatic episodes Patient and significant other verbalized understanding 01/31/2025 Biventricular heart failure (ICD-10 - I50.82) Follow up with cardiology today for Echo 02/14/2025 Biventricular heart failure (ICD-10 - I50.82) Continue medication Follow up with valve specialist as scheduled Low salt and low cholesterol diet 02/14/2025 Cirrhosis of liver (ICD-10 - K74.60) Continue paracentesis as scheduled 03/13/2025 Biventricular heart failure (ICD-10 - I50.82) Follow up with specialist for ROBERT results Follow up with palliative care for fatigue or shortness of breath 03/13/2025 Cirrhosis of liver (ICD-10 - K74.60) Continue scheduled paracentesis 03/13/2025 End stage kidney disease (ICD-10 - N18.6) Continue renal diet and dialysis Continue medication 02/14/2025 Hypotension (ICD-10 - I95.9) Stable Better with increase in midodrine 01/31/2025 Cirrhosis of liver (ICD-10 - K74.60) Continue paracentesis as scheduled 01/03/2025 Cirrhosis of liver (ICD-10 [...] - I13.2) 01/03/2025 Afib (ICD-10 - I48.91) 12/06/2024 Afib (ICD-10 - I48.91) 01/31/2025 End stage kidney disease (ICD-10 - N18.6) Continue dialysis as scheduled 02/14/2025 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, or end stage renal disease (ICD-10 - I13.2) Continue hemodialysis 3 times weekly Follow renal diet 09/20/2024 Edema, peripheral (ICD-10 - R60.9) Continue to wear compression socks Watch salt in diet Keep feet/legs elevated when sitting 03/13/2025 Palliative care encounter (ICD-10 - Z51.5) DNR PPS:70% 03/13/2025 Hypotension (ICD-10 - I95.9) Chronic issue Continue midodrine Follow up for any dizziness 02/14/2025 Encounter for palliative care (ICD-10 - Z51.5) DNR No change in status Follow up in 4 weeks Symptom tracker left with patient; patient and significant other verbalized understanding 01/03/2025 Palliative care encounter (ICD-10 - Z51.5) DNR PPS 70% 01/31/2025 Encounter for palliative care (ICD-10 - Z51.5) DNR Px>6 months 10/18/2024 Cirrhosis of liver (ICD-10 - K74.60) [...] days and not only on dialysis days 02/14/2025 Afib (ICD-10 - I48.91) 10/18/2024 Inguinal hernia (ICD-10 - K40.90) 11/22/2024 Edema, peripheral (ICD-10 - R60.0) Plan Of Treatment Next Appt Details Provider Name:WASHINGTON KENNY, 0 04/04/2025 09:45:00 AM, [address] , [place], [address], Insurance Providers Payer Name Payer Address Payer Phone Subscriber Number Group Number Insured Name Patient Relationship to Insured Coverage Start Date Coverage End Date [employer] [place] [address] [address] [place] [address] [id number] ARMEN CUNNINGHAM Self - patient is the insured [facility] [address] [place] [address] [id number] ARMEN CUNNINGHAM Self - patient is the insured Medical (General) History Medical History History ICD Code Hypertensive heart and chron ic kidney disease with heart failure and with stage 5 chronic kidney disease, or end stage renal disease I13.2 Biventricular heart failure I50.82 cirrhosis neuropathy Atrial fibrillation Peripheral edema hypotension Surgical History Surgery Date(Month/Year) fistula right arm appendectomy nephrectomy left Hospitalization History Reason Date(Month/Year) nephrectomy 2020 heart failure 07/2024
--- OUTSIDE RECORDS SUMMARY | 2025-03-19 09:52 | XMS_ITS | Encounter Summary ---
Author Organization [facility] Healthcare Address [address] [place] [address] Care Team Providers Care Video Production Assistant Name Role Phone Dickson Land MD Primary Care Provider Dionicio Carrasquillo MD Unavailable [phone] Angel Chow MD Unavailable [phone] Encounter Details Date Type Department Care Team (Late st Contact Info) Description 04/06/2024 Telephone [facility] [address] [facility] [address] [place] [address] Dionicio Carrasquillo MD [address] [place] [address] [address] [place] [address] Social History Tobacco Use Types Packs/Day Years [...] Description 04/27/2025 8:00 AM CDT Hospital Encounter [facility] [address] [place] [address] Jean-Paul Bauer MD [address] [facility] [address] [place] [address] Coronary artery disease of [place] artery of [place] heart with stable angina pectoris; Nonrheumatic aortic (valve) stenosis 04/27/2025 8:00 AM CDT - 04/27/2025 11:40 AM CDT Surgery [facility] [address] [place] [address] Jean-Paul Bauer MD [address] [facility] [address] [place] [address] PCI ROSALBA MAJOR CORONARY [id number] documented as of this encounter Visit Diagnoses Not on filedocumented in this encounter Care Teams Video Production Assistant Relationship Specialty Start Date End Date Dickson Land MD [address] [place] [address] PCP - General Family Medicine 01/27/19 Dionicio Carrasquillo MD [address] [facility] [address] [place] [address] Surgeon Surgery 03/05/23 Angel Chow MD [address], [address] [place] [address] Consulting Physician Cardiology 01/24/25 documented as of this encounter
--- OUTSIDE RECORDS SUMMARY | 2025-03-19 09:52 | XMS_ITS | Clinical Summary ---
Author Organization [facility] Address [address] [facility] [address] Care Team Providers Care Tractor Sweeper Driver Name Role Phone Dickson Land MD [...] Active Fluticasone Furoate (FLONASE SENSIMIST) 27.5 mcg/actuation [place], Suspension Administer 1 spray into each nostril [...] Encounters Date Type Department Care Team Description 03/08/2025 External Device Data [facility] ABSTRACTION Provider, Abstract 03/07/2025 External Device Data [facility] ABSTRACTION Provider, Abstract 02/07/2025 External Device Data [facility] ABSTRACTION Provider, Abstract 01/12/2025 External Device Data [facility] ABSTRACTION Provider, Abstract 01/10/2025 External Device Data [facility] ABSTRACTION Provider, Abstract 12/27/2024 External Device Data [facility] ABSTRACTION Provider, [...] Comments Blood Pressure 80/44 08/25/2024 9:00 AM TRAVELING BUYER Pulse 63 08/25/2024 8:43 AM TRAVELING BUYER Temperature 36.7 C (98 F) 08/10/2024 7:33 AM TRAVELING BUYER Respiratory Rate 19 08/10/2024 12:59 PM TRAVELING BUYER Oxygen Saturation 96% 08/25/2024 8:43 AM TRAVELING BUYER Inhaled Oxygen Concentration - - Weight 99.8 kg (220 lb) 08/25/2024 8:43 AM TRAVELING BUYER Height 188 cm (6' 2) 08/25/2024 8:43 AM TRAVELING BUYER Body Mass Index 28.25 08/25/2024 8:43 AM TRAVELING BUYER Plan of Treatment Health Maintenance Due Date Last Done Comments RSV VACCINE (60+ or ) (1 - 1-dose 75+ series) 2016 INFLUENZA VACCINE (#1) 2025 05/25/2021, 2019 DTAP/TDAP/TD VACCINES (2 - Td or Tdap) 12/02/2028 ZOSTER VACCINE Completed 08/23/2018, 05/25/2018 PNEUMOCOCCAL VACCINE 50+ YEARS Completed 12/02/2018 , 02/27/2016 Insurance MEDICARE PART A AND B [facility] FEDERAL MEDICARE PART A AND B [facility] Advance Directives For more information, please contact: [phone] * NO CPR (In Event of Cardiopulmonary [...] 6:07 AM 08/02/2024 6:40 AM Care Teams Tractor Sweeper Driver Relationship Specialty Start Date End Date Dickson Land MD [address] [address] PCP - General Family Practice 04/17/22
--- OUTSIDE RECORDS SUMMARY | 2025-03-19 09:52 | XMS_ITS | Encounter Summary ---
Author Organization [facility] Address [address] [place] [address] Phone Care Team Providers Care Biomass Power Plant Manager Name Role Phone Dickson Land MD Primary Care Provider Dionicio Carrasquillo MD Unavailable [phone] Angel Chow MD Unavailable [phone] Encounter Details Date Type Department Care Team (Latest Contact Info) Description 08/02/2024 Orders Only [facility] Scanning, Provider Social History Tobacco Use Types [...] Description 04/27/2025 8:00 AM CDT Hospital Encounter [facility] 1 [place] [address] Jean-Paul Bauer MD [address] [facility] [address] [place] [address] Coronary artery disease of [place] artery of [place] heart with stable angina pectoris; Nonrheumatic aortic (valve) stenosis 04/27/2025 8:00 AM CDT - 04/27/2025 11:40 AM CDT Surgery [facility] [address] [place] [address] Jean-Paul Bauer MD [address] [facility] [address] [place] [address] PCI ROSALBA MAJOR CORONARY [id number] - [id number] documented as of this encounter Procedures Procedure Name Priority Date/Time Associated Diagnosis Comments CARDIOLOGY DOCUMENT SCAN 08/02/2024 documented in this encounter Results * Cardiology Document Scan (08/02/2024) Anatomical Region Laterality Modality Other us Provider Scanning CV CARDIAC SERVICES PROCEDURES Final Result documented in this encounter Visit Diagnoses Not on filedocumented in this encounter Care Teams Biomass Power Plant Manager Relationship Specialty Start Date End Date Dickson Land MD [address] [place] [address] PCP - General Family Medicine 01/27/19 Dionicio Carrasquillo MD [address] [facility] [address] [facility] [address] [place] [address] Surgeon Surgery 03/05/23 Angel Chow MD [address] [facility] [address] [place] [address] Consulting Physician Cardiology 01/24/25 documented as of this encounter
--- OUTSIDE RECORDS SUMMARY | 2025-03-19 09:52 | XMS_ITS ---
Author Organization [facility] Address [address] [place] [address] Care Team Providers Care Rubber Cutter And Shape Carver Name Role Phone Dickson Land MD Primary Care Provider Dionicio Carrasquillo MD Unavailable [phone] Angel Chow MD Unavailable [phone] Active Problems Problem Noted Date Diagnosed Date Shock circulatory 02/13/2025 Renal cell carcinoma of left kidney 02/13/2025 Biventricular heart failure 02/13/2025 Arterial hypotension 01/09/2025 Cardiomyopathy 08/31/2024 Nonrheumatic mitral valve regurgitation 08/31/19 25 ESRD (end stage renal disease) on dialysis 12/03 Overview (12/03/2022): Added automatically from request for surgery [id number] Assessment & Plan (09/13/2024 9:37 AM FINISHER [employer]): Patient is currently dialyzing through a right [...] proceed. Assessment & Plan (09/15/2023 3:15 PM FINISHER [employer]): Impression: Patient is being dialyzed through a [...] dialysis. Assessment & Plan (08/11/2023 1:31 PM FINISHER [employer]): Dialyzing through a right brachiocephalic fistula. States [...] any decrease in sensory motor has strong car body inspector his hand is warm. He denies any [...] 03/10/2022 Assessment & Plan (08/11/2023 1:32 PM FINISHER [employer]): Chronic controlled. Continue amiodarone Dizziness 01/27/2022 Sensorineural hearing loss (SNHL) of both ears 0 12/03/2021 Bilateral lower extremity edema 07/26/2021 Essential hypertension 04/09/2021 Assessment & Plan (09/13/2024 9:32 AM FINISHER [employer]): Patient's blood pressure is now mostly labile and hypotensive. Continue midodrine as per his physician. Assessment & Plan (2024 10:49 AM CDT): Continue antihypertensives Assessment & Plan (09/15/2023 3:16 PM FINISHER [employer]): Impression: Chronic and stable. Plan: Continue metoprolol Assessment & Plan (08/11/2023 1:24 PM FINISHER [employer]): metoprolol Hyperlipidemia LDL goal <70 04/09/2021 Assessment & Plan (09/13/2024 9:31 AM FINISHER [employer]): Controlled. Continue Lipitor Assessment & Plan (2024 10:49 AM CDT): Continue Lipitor Assessment & Plan (09/15/2023 3:16 PM FINISHER [employer]): Impression: Chronic stable. Plan: Continue atorvastatin Assessment & Plan (08/11/2023 1:32 PM FINISHER [employer]): Continue Lipitor Coronary artery disease of n ative artery of [place] heart with stable angina pectoris 04/09/2021 Bilateral impacted cerumen 03/05/2021 Chronic eczematous otitis externa of left ear Erectile dysfunction 02/17/2019 Overview (02/17/2019): Added automatically from request for surgery [id number] Current Treatment and Therapy Plans No current plan information found. Past Treatment and Therapy Plans No past plan information found. Lifetime Dose Tracking * Chemical Lifetime Dose Automatic Entry Manual Entr y Air kerma at the reference point (Ka,r) 1,039 mGy 0 mGy 1,039 mGy DLP 2,114 mGycm 2,114 mGycm 0 mGycm Resolved Problems Problem Noted Date Diagnosed Date Resolved Date CKD (chronic kidney disease) stage 4, GFR 15-29 ml/min 07/26/2021 09/15/2023 Class 2 obesity due to exces s calories without serious comorbidity with body mass index (BMI) of 36.0 to 36.9 in adult 04/09/2021 Urologic disorder 04/04/2019 04/04/2019
--- OUTSIDE RECORDS SUMMARY | 2025-03-19 09:52 | XMS_ITS | Encounter Summary ---
Author Organization [facility] Healthcare Address [address] [place] [address] Care Team Providers Care Locksmith Name Role Phone Dickson Land MD Primary Care Provider Dionicio Carrasquillo MD Unavailable [phone] Angel Chow MD Unavailable [phone] Encounter Details Date Type Department Care Team (Late st Contact Info) Description 02/04/2023 Telephone [facility] Medical Office Building [address] [address] Dionicio Carrasquillo MD [facility] [address] [place] [place] [address] Social History Tobacco Use Types Packs/Day Years [...] Description 04/27/2025 8:00 AM CDT Hospital Encounter [facility] 1 [place] [address] Jean-Paul Bauer MD [address] [facility] [address] [place] [address] Coronary artery disease of [place] artery of [place] heart with stable angina pectoris; Nonrheumatic aortic (valve) stenosis 04/27/2025 8:00 AM CDT - 04/27/2025 11:40 AM CDT Surgery [facility] [place] 1 [place] [address] Jean-Paul Bauer MD [address] [facility] [address] [place] [address] PCI ROSALBA MAJOR CORONARY [id number] - [id number] documented as of this encounter Visit Diagnoses Not on filedocumented in this encounter Care Teams Locksmith Relationship Specialty Start Date End Date Dickson Land MD [address] [place] [address] PCP - General Family Medicine 01/27/19 Dionicio Carrasquillo MD [address] [facility] [address] [facility] [address] [place] [address] Surgeon Surgery 03/05/23 Angel Chow MD [address] [place] [address] Consulting Physician Cardiology 01/24/25 documented as of this encounter
--- OUTSIDE RECORDS SUMMARY | 2025-03-19 09:52 | XMS_ITS | Encounter Summary ---
Author Organization [facility] Healthcare Address [address] [place] [address] Care Team Providers Care Efficiency Miner Blasting Name Role Phone Dickson Land MD Primary Care Provider Dionicio Carrasquillo MD Unavailable [phone] Angel Chow MD Unavailable [phone] Encounter Details Date Type Department Care Team (Late st Contact Info) Description 03/21/2019 Documentation [facility] Case Management [id number] [place] [place] [address] Opal Crawley, IAN Social History Tobacco Use Types Packs/Day Years [...] Description 04/27/2025 8:00 AM CDT Hospital Encounter [facility] [address] [place] [address] Jean-Paul Bauer MD [address] [facility] [address] [place], [place] [id number] Coronary artery disease of [place] artery of [place] heart with stable angina pectoris; Nonrheumatic aortic (valve) stenosis 04/27/2025 8:00 AM CDT - 04/27/2025 11:40 AM CDT Surgery [facility] [address] [facility] [place] [address] Jean-Paul Bauer MD [address] [place] [address] PCI ROSALBA MAJOR CORONARY [id number] documented as of this encounter Visit Diagnoses Not on filedocumented in this encounter Care Teams Efficiency Miner Blasting Relationship Specialty Start Date End Date Dickson Land MD [address] [place] [address] PCP - General Family Medicine 01/27/19 Dionicio Carrasquillo MD [address] [facility] [address] [facility] [address] [place] [address] Surgeon Surgery 03/05/23 Angel Chow MD [address] [facility] [address] [place] [address] [facility], [address] [place] [address] Consulting Physician Cardiology 01/24/25 documented as of this encounter
--- OUTSIDE RECORDS SUMMARY | 2025-03-19 09:52 | XMS_ITS | Clinical Summary ---
Author Organization [facility] Address [address] [place] [id number] Phone Care Team Providers Care Software Product Manager Name Role Phone Dickson Land MD Primary Care Provider [phone] Allergies No known active allergies Medications allopurinol [...] (01/28/2021): Added automatically from request for surgery [id number] Immunizations Immunization Administration Dates Next Due Sars-cov-2, [...] 9:11 AM CDT Height 185.4 cm (6' 1) 12/18/2021 9:11 AM CDT Body Mass Index 36.68 12/18/2021 9:11 AM CDT Plan of Treatment Health Maintenance Due Date Last Done Comments Pneumococcal PPSV23/PCV13 65 + Years / Low and Medium Risk (2 of 3 - PCV20 or PCV21) 02/26/2017 02/27/2016 Influenza Vaccine (#1) 2025 9, 05/25/2018, 08/07/2016 Insurance MEDICARE [facility] Care Teams Software Product Manager Relationship Specialty Start Date End Date Dickson Land MD [address] [facility] [address] [facility] [address] [place] [id number] PCP - General Internal Medicine 12/28/20
--- OUTSIDE RECORDS SUMMARY | 2025-03-19 09:52 | XMS_ITS | Clinical Summary ---
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 Assessment & Plan (09/15/2023 3:15 PM FRAME SAMPLE AND PATTERN SUPERVISOR): Impression: Patient is being dialyzed through [...] dialysis. Assessment & Plan (08/11/2023 1:31 PM FRAME SAMPLE AND PATTERN SUPERVISOR): Dialyzing through a right brachiocephalic fistula. [...] any decrease in sensory motor has strong printing film stripper his hand is warm. He denies any [...] 03/10/2022 Assessment & Plan (08/11/2023 1:32 PM FRAME SAMPLE AND PATTERN SUPERVISOR): Chronic controlled. Continue amiodarone Dizziness 01/27/2022 Sensorineural hearing loss (SNHL) of both ears 0 12/03/2021 Bilateral lower extremity edema 07/26/2021 Essential hypertension 04/09/2021 Assessment & Plan (09/13/2024 9:32 AM FRAME SAMPLE AND PATTERN SUPERVISOR): Patient's blood pressure is now mostly labile and hypotensive. Continue midodrine as per his physician. Assessment & Plan (2024 10:49 AM CDT): Continue antihypertensives Assessment & Plan (09/15/2023 3:16 PM FRAME SAMPLE AND PATTERN SUPERVISOR): Impression: Chronic and stable. Plan: Continue metoprolol Assessment & Plan (08/11/2023 1:24 PM FRAME SAMPLE AND PATTERN SUPERVISOR): metoprolol Hyperlipidemia LDL goal <70 04/09/2021 Assessment & Plan (09/13/2024 9:31 AM FRAME SAMPLE AND PATTERN SUPERVISOR): Controlled. Continue Lipitor Assessment & Plan (2024 10:49 AM CDT): Continue Lipitor Assessment & Plan (09/15/2023 3:16 PM FRAME SAMPLE AND PATTERN SUPERVISOR): Impression: Chronic stable. 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 04/09/2021 Bilateral impacted cerumen 03/05/2021 Chronic eczematous otitis externa of left ear Erectile dysfunction 02/17/2019 Overview (02/17/2019): Added automatically from request for surgery [id number] Resolved Problems Problem Noted Date Diagnosed Date Resolved Date CKD (chronic kidney disease) stage 4, GFR 15-29 ml/min 07/26/2021 09/15/2023 Class 2 obesity due to exces s calories without serious comorbidity with body mass index (BMI) of 36.0 to 36.9 in adult 04/09/2021 Urologic disorder 04/04/2019 04/04/2019 Encounters Date Type Department Care Team Description 03/14/2025 Telephone [facility] Cardiology [address] [facility] Medical Office Building [address] [place] [address] Moraima Chaudhry RN valve conference 03/09/2025 9:40 AM CDT - 03/09/2025 11:30 AM CDT Surgery [facility] [address] [place] [address] Palma Bauer MD Right Left Heart Catheterization with Coronary Angiography with or without Left Ventriculography [id number] 03/09/2025 8:47 AM CDT Anesthesia Event [facility] Heart [facility] [place] [address] [place] [address] Blanquita Lang MD Gielow, Mathew Gregory, CRNA 03/09/2025 6:25 AM CDT - 03/09/2025 11:59 PM CDT Hospital Encounter [facility] Heart [facility] [place] [address] [place] [address] Blanquita Lang MD Nonrheumatic aortic (valve) stenosis Discharge Disposition: Discharge to home or self care 03/09/2025 6:24 AM CDT - 03/09/2025 2:45 PM CDT Hospital Encounter [facility] [place] [address] [place] [address] Palma Bauer MD Nonrheumatic aortic (valve) stenosis Discharge Disposition: Discharge to home or self care 03/09/2025 Telephone [facility] Cardiology [address] [place] [address] Medical Office Building [address] [place] [address] Moraima Chaudhry RN 02/15/2025 Orders Only [facility] Scanning, Provider 02/13/2025 Results Follow-Up [facility] Cardiology [address] [place] [address] Medical Office Building [address] [place] [phone] Sharon Daniel MD ECG 12 lead, MCT Mobile Cardiac Telemetry Event Monitor 02/06/2025 1:34 PM CDT - 02/06/2025 11:59 PM CDT Hospital Encounter [facility] Imaging [address] [place] [address] Sharon Daniel MD Essential hypertension; Nonrheumatic aortic (valve) stenosis Discharge Disposition: Discharge to home or self care 02/06/2025 Telephone [facility] Cardiology [address] [facility] 8th [place] [address] [place] [address] Sharon Daniel MD 02/06/2025 Telephone [facility] Cardiology [facility] [facility] 8th [place] [address] [place] [address] Sharon Daniel MD 02/01/2025 Telephone [facility] Cardiology [address] [place] [address] Angel Chow MD 01/31/2025 4:15 PM CDT Lab [facility] [address] [place] [address] Cardiomyopathy, unspecified type (HCC); Abnormal finding of blood chemistry, unspecified; Heart disease, unspecified 01/31/2025 3:45 PM CDT Ancillary Procedure [facility] [address] [place] [address] [address] [place] [address] Essential hypertension; Nonrheumatic aortic (valve) stenosis; PAF (paroxysmal atrial fibrillation) (HCC) 01/31/2025 2:30 PM CDT Office Visit 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 Cardiology [facility] [address]th [place] [address] [place] [address] Tiffanie Fink RN 01/31/2025 Telephone [facility] Cardiology [facility] 8th [place] [address] [place] [address] Sharon Daniel MD 01/25/2025 11:42 AM CDT - 01/25/2025 11:59 PM CDT Hospital Encounter [facility] Rad[facility] [address] [place] [address] Discharge Disposition: Discharge to home or self care 01/24/2025 Telephone 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 Dionicio Carrasquillo CARDIAC CATHETERIZATION 03/09/2025 N/A Procedure: Right Left Heart Catheterization with Coronary Angiography with or without Left Ventriculography [id number]; Surgeon: Palma Bauer MD; Location: [facility] CARDIAC BELT CHANGER; Service: Cardiovascular; Laterality: N/A; Medical devices from this surgery are in the Medical Devices section. Medical History Medical History Date Comments Hypertension Erectile dysfunction Gout DVT (deep venous thrombosis) (HCC) 1993 CAD (coronary artery disease) ED (erectile dysfunction) CKD (chronic kidney disease) ND, old PONV (postoperative nausea and vomiting) Allergic rhinitis Heart attack (HCC) 2010 Hyperlipidemia Cancer (HCC) kidney Obesity Bruises easily [facility]od[facility] Ear problems Family History Medical [...] Description 04/27/2025 8:00 AM CDT Hospital Encounter [facility] 1 [place] [address] Palma Bauer MD [address] [place] [address] [address] 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; Nonrheumatic aortic (valve) stenosis 04/27/2025 8:00 AM CDT - 04/27/2025 11:40 AM CDT Surgery [facility] [address] [place] [address] Palma Bauer MD [address] [place] [address] [address] PCI ROSALBA MAJOR CORONARY [id number] - 16047 Health Maintenance Due Date Last Done Comments Depression Screening 1940 Well Visit 65+ 2006 Influenza Vaccine (#1) 2025 0, 05/31/2019, 05/25/2018, Additional history exists Fall Risk Assessment 03/09/2026 03/09/2025 DTaP/Tdap/Td Vaccine (2 - Td or Tdap) 12/02/2028 12/02/2018 Zoster Vaccine Completed 08/23/2018, 05/25/2018 Pneumococcal vaccine 65+ Completed 12/02/2018, 01/2016 Goals Goal Patient Goal Type Associated Problems Recent Progress Patient-Stated? Author Autogenerat ed Goal Care Plan Autogenerated Problem No Shanon Palumbo Autogenerat ed Goal Care Plan Autogenerated Problem No Shanon Palumbo Medical Devices Implanted Type Area Data Entry Associate Device Identifier Shelf Expiration Date Model / Serial / Lot [employer] Lux Angio-Seal Vip 6fr Closere Device [id number] - [id number] - [id number] Implanted:Qty: 1 on 03/09/2025 by Palma Bauer MD at [facility] Collagen Right: Femoral [employer] Lux 11/03/2025 [id number] / [id number] / [id number] Description:RFA. Coloplast Lux [id number] Titan Lock-Out Inflatable Self Contain Fluid Fill Tube Standard Latex Free - Sn/A - [id number] Implanted:Qty: 1 on 03/18/2019 by Angel Kiran MD at [facility] Other - see comments N/A: Penis Coloplast Lux 09/20/2023 [id number] / N/A / [id number] Description:PENIAL PROSTHESI S Coloplast Lux [id number] Titan Coloplast Lock-Out Inflatable Self Contain Fluid Fill Valve Latex Free - Sn/A - [id number] Implanted:Qty: 1 on 03/18/2019 by Angel Kiran MD at [facility] Other - see comments N/A: Penis Coloplast Lux 10/07/2023 [id number] / N/A / [id number] Description:PENILE PROSTHESI S Coloplast Lux [id number] Pros 0d Cyl 20cm Penile Ttn Otr Scrotum - Sn/A - [id number] Implanted:Qty: 1 on 03/18/2019 by Angel Kiran MD at [facility] Other - see comments N/A: Penis Coloplast Lux 11/29/2023 [id number] / N/A / [id number] Description:PENILE PROSTHESI S Stent Heart Description:x2 Procedures [...] confirmed the above report. Palma Bauer MD Emr Implementation Specialistmodel engine mechanic Interventional and Structural Cardiology [facility] Narrative 03/09/2025 4:59 PM CDT Images from the original result were not included. Cardiovascular Procedure Center [facility] [address], [address] [place], [place] [phone] RIGHT AND LEFT HEART CATHETERIZATION WITH CORONARY ANGIOGRAM REPORT Patient: Armen Jimenez : 1940 MR number: [id number] Date of Service: 03/09/2025 Broom Man: Palma Bauer MD Fellow: Fanny Rogers MD [...] obtained. The patient was brought to the collaborative physician and placed on the table. Bilateral groins [...] Left ventricular hemodynamics were measured using 6 Wolof JR4 catheter, no left ventriculogram was done. PA catheterization was performed with 7 Fr TD Patton-Ashley catheter with serial oxymetric sampling and hemodynamic [...] (ABNORMAL) POCT oxyhemoglobin (03/09/2025 10:58 AM CDT) [facility] Oxyhemoglobin 92.1 >=65.0 % [facility] Hemoglobin 11.1(L) 13.0 - 17.5 g/dL [facility] ACQUISITION EDITOR O2 content 14.2(L) 15.0 - 22.0 Vol % [facility] Anatomic Site aPOC Aorta ascend [facility] Blood 03/09/2025 10:5 8 AM CDT 03/09/2025 10:58 AM CDT us Palma Bauer MD LAB POCT ORDERABLES - DEV ICE Final Result Performing Organization Address [facility] Co de Phone Number [facility] [place] [address] * (ABNORMAL) POCT oxyhemoglobin (03/09/2025 10:57 AM CDT) ACQUISITION EDIT[facility] Oxyhemoglobin 57.3(L) >=65.0 % [facility] Hemoglobin 9.3(L) 13.0 - 17.5 g/dL [facility] ACQUISITION EDITOR O2 content 7.4(L) 15.0 - 22.0 Vol % [facility] Anatomic Site aPOC Pulm Art main [facility] Blood 03/09/2025 10:5 7 AM CDT 03/09/2025 10:57 AM CDT us Palma Bauer MD LAB POCT ORDERABLES - DEV ICE Final Result Performing Organization Address [facility] de Phone Number [facility] [place] [address] * (ABNORMAL) POCT oxyhemoglobin (03/09/2025 10:56 AM CDT) ACQUISITION EDITOR Oxyhemoglobin 65.9 >=65.0 % [facility]IS[facility] Hemoglobin 10.5(L) 13.0 - 17.5 g/dL [facility] ACQUISITION EDITOR O2 content 9.6(L) 15.0 - 22.0 Vol % [facility] Anatomic Site aPOC Pulm Art main [facility] Blood 03/09/2025 10:5 6 AM CDT 03/09/2025 10:56 AM CDT us Palma Bauer MD LAB POCT ORDERABLES - DEV ICE Final Result [facility] [place] [address] * TRANSESOPHAGEAL ECHO (ROBERT) W DOPPLER/CF WO CONTRAST (03/09/2025 10:10 AM CDT) Anatomical Region Laterality Modality Echocardiography 03/09/2025 8:53 AM CDT Narrative 03/11/2025 1:13 AM CDT [facility] [place] [address] Transesophageal Echocardiographic Report Patient Name: ARMEN JIMENEZ W : 1940 (84y 11m) Gender: M Study Date: 03/09/2025 08:53:28 AM Ht(Inch): Wt(Lb): BSA: Chairman & Co Founder: Location: 5517 Order Provider: PALMA BAUER BMI: [...] Procedure Note Leonardo Padilla MD - 03/11/2025 [facility] Cardiac [place] [address] Transesophageal Echocardiographic Report Patient Name: ARMEN JIMENEZ W : 1940 (84y 11m) Gender: M Study Date: 03/09/2025 08:53:28 AM Ht(Inch): Wt(Lb): BSA: Chairman & Co Founder: Location: 5517 Order Provider: PALMA BAUER BMI: [...] leaflets appear mildly thickened. Tethered P2 and [id number]. Mitral annular calcification is present. Broad-based central [...] Leonardo Padilla MD 03/11/2025 1:13:28 AM CDT us Palma Bauer MD CV ECHO PROCEDURES Final [...] MD LAB BLOOD ORDERABLES Karolina l Result [facility] One [facility] Department of Laboratories [place], [place] [id number] * (ABNORMAL) Protime-INR (03/09/2025 8:14 AM CDT) [facility] PT 14.3(H) 9.7 - 13.0 sec INR 1.32(H) 0.90 - 1.20 [facility] Comment: Interpretive data Oral anticoagulant therapeutic ranges: Venous thromboembolism prophylaxis or treatment: 2.0-3.0 CARDIOLOGY Standard range: 2.0-3.0 High-intensity range: 2.5-3.5 Refer to indication-specific guidelines for appropriate target ranges for prosthetic heart valve replacement. Current interpretive data was last revised on 2019. Blood 03/09/2025 8:14 AM CDT 03/09/2025 8:22 AM CDT us Palma Bauer MD LAB BLOOD ORDERABLES Karolina jain Result [facility] One [facility] Department [place] [address] * (ABNORMAL) CBC without differential (03/09/2025 8:14 AM CDT) [facility] WBC 5.19 3.80 - 9.90 K/cumm Hgb 11.0(L) 13.0 - 17.5 g/dL [facility] Hct 33.3(L) 38.9 - 50.3 % [facility] Plt 161 150 - 400 K/cumm [facility] MPV 10.0 9.1 - 12.3 fL [facility] RBC 3.10(L) 4.30 - 5.80 M/cumm [facility] MCV 107.4(H) 81.3 - 96.4 fL [facility] MCH 35.5(H) 27.1 - 33.3 pg [facility] MCHC 33.0 32.3 - 35.7 g/dL [facility] RDW CV 14.7 11.1 - 14.9 % [facility] RDW SD 56.5(H) 35.7 - 48.1 fL [facility] NRBC abs 0.00 0.00 - 0.01 K/cumm [facility] Blood 03/09/2025 8:14 AM CDT 03/09/2025 8:22 AM CDT us Palma Bauer MD LAB BLOOD ORDERABLES Karolina l Result Performing Organization Address City/[facility]/ZIP Co de Phone Number [facility] [place] [address] * (ABNORMAL) Basic metabolic panel (03/09/2025 8:14 AM CDT) Pathologist [facility] Sodium 139 135 - 145 mmol/L Potassium, pl 5.9(H) 3.3 - 4.9 mmol/L [facility] Chloride 96(L) 97 - 110 mmol/L [facility] CO2 35(H) 22 - 32 mmol/L [facility] Anion gap 8 2 - 15 mmol/L [facility] BUN 34(H) 6 - 25 mg/dL [facility] Creatinine 6.68(H) 0.80 - 1.30 mg/dL [facility] Glucose 82 70 - 199 mg/dL [facility] Comment: Interpretive Data Fasting glucose >/= 126 [...] 2022. Calcium 9.9 8.5 - 10.3 mg/dL [facility] Blood 03/09/2025 8:14 AM CDT 03/09/2025 8:22 AM CDT Palma Bauer MD LAB BLOOD ORDERABLES Karolina l Result Performing Organization Address City/[facility]/ZIP Co de Phone Number [facility] [place] [address] * (ABNORMAL) POC Blood Gas and Chemistries, Arterial - (03/09/2025 8:11 AM CDT) K POC 6.0(H) 3.3 - 4.9 mmol/L Comment: Interpretive Data Not all point of care methods assess for hemolysis. Confirm with instrument and retest K+ if not consistent with clinical signs and symptoms. Current Interpretive Data was last revised on 2023. Blood 03/09/2025 8:11 AM CDT 03/09/2025 8:11 AM CDT us Palma Bauer MD LAB POCT ORDERABLES - DEV ICE Final Result [facility] One [facility] [place] [address] * CT TAVR (02/06/2025 2:01 PM CDT) [...] mm x 41 mm x 41 mm [id number] Sinotubular junction: 36 mm x 35 mm Distance to RCA ostium from aortic valve annulus: 28 mm Distance to left main ostium from annulus: 17 mm Deployment angle: 23 SINHALA, 0 Caudal Right coronary sinus height: 30 [...] mm x 41 mm x 41 mm [id number] Sinotubular junction: 36 mm x 35 mm Distance to RCA ostium from aortic valve annulus: 28 mm Distance to left main ostium from annulus: 17 mm Deployment angle: 23 SINHALA, 0 Caudal Right coronary sinus height: 30 [...] it. Electronically signed by: Enoch Wright M.D. Sharon Daniel MD IMG CT PROCEDURES Final Result * (ABNORMAL) eGFR (01/31/2025 4:08 PM CDT) Pathologist [facility] eGFR 9(L) >=60 mL/min/1. 73 m2 Comment: [...] LAB BLOOD ORDERABLES Final Res ult [facility] [address] [facility]. [place] [address] * (ABNORMAL) Differential, auto (01/31/2025 4:08 PM CDT) Pathologist [facility] Neutrophil abs 3.95 1.50 - 6.50 K/cumm Imm gran abs 0.02 0.00 - 0.10 K/cumm [facility] Lymphocyte abs 0.58(L) 0.80 - 3.30 K/cumm [facility] Monocyte abs 0.77 0.20 - 0.80 K/cumm [facility] Eosinophil abs 0.08 0.00 - 0.50 K/cumm [facility] Basophil abs 0.06 0.00 - 0.10 K/cumm [facility] Neutrophil pct 72.3 % [facility] Comment: Interpretive Data Percent cell count reference ranges are not reported, since discordance with absolute values may lead to misinterpretation of CBC data. Current Interpretive Data was last revised on 2017. Imm gran pct 0.4 % [facility] Comment: Interpretive Data Percent cell count reference ranges are not reported, since discordance with absolute values may lead to misinterpretation of CBC data. Current Interpretive Data was last revised on 2017. Lymphocyte pct 10.6 % [facility] Comment: Interpretive Data Percent cell count reference ranges are not reported, since discordance with absolute values may lead to misinterpretation of CBC data. Current Interpretive Data was last revised on 2017. Monocyte pct 14.1 % [facility] Comment: Interpretive Data Percent cell count reference ranges are not reported, since discordance with absolute values may lead to misinterpretation of CBC data. Current Interpretive Data was last revised on 2017. Eosinophil pct 1.5 % [facility] Comment: Interpretive Data Percent cell count reference ranges are not reported, since discordance with absolute values may lead to misinterpretation of CBC data. Current Interpretive Data was last revised on 2017. Basophil pct 1.1 % [facility] Comment: Interpretive Data Percent cell count reference ranges are not reported, since discordance with absolute values may lead to misinterpretation of CBC data. Current Interpretive Data was last revised on 2017. Blood 01/31/2025 4:08 PM CDT 01/31/2025 4:31 PM CDT us Sharon Daniel MD LAB BLOOD ORDERABLES Final Res ult [facility]AH [facility] [address] [facility]. [place] [address] * (ABNORMAL) Pro B-type natriuretic peptide (01/31/2025 [...] Eur Heart J. 2006:27:330-337. 2. Alexander RW, Jose AM. J. AM Jenna Cardiol: Cardiovasc Imag. 2009;2: 216- 225. Interpretive Data Last Revised Date: 2018. Blood 01/31/2025 4:08 PM CDT 01/31/2025 4:31 PM CDT us Sharon Daniel MD LAB BLOOD ORDERABLES Final Res ult [facility] [address] [facility] [place] [address] * (ABNORMAL) CBC with auto differential (01/31/2025 4:08 PM CDT) WBC 5.46 3.80 - 9.90 K/cumm Hgb 10.7(L) 13.0 - 17.5 g/dL [facility] Hct 31.4(L) 38.9 - 50.3 % [facility] Plt 204 150 - 400 K/cumm [facility] MPV 10.3 9.1 - 12.3 fL [facility] RBC 2.85(L) 4.30 - 5.80 M/cumm [facility] MCV 110.2(H) 81.3 - 96.4 fL [facility] MCH 37.5(H) 27.1 - 33.3 pg [facility] MCHC 34.1 32.3 - 35.7 g/dL [facility] RDW CV 13.9 11.1 - 14.9 % [facility] RDW SD 55.0(H) 35.7 - 48.1 fL [facility] NRBC abs 0.00 0.00 - 0.01 K/cumm [place] [facility] Blood 01/31/2025 4:08 PM CDT 01/31/2025 4:31 PM CDT us Sharon Daniel MD LAB BLOOD ORDERABLES Final Res ult [facility] [address] [facility]. [place] [address] * Lipoprotein a (LPa) (01/31/2025 4:08 PM CDT) Pathologist [facility] Lipoprotein A 55 <75 nmol/L [facility] Comment: ADDITIONAL INFORMATION Please notice that Lp(a) values are reported in molar units (nmol/L). These units are recommended by professional society guidelines and expert opinion statements. Measured results and risk thresholds are higher than those generated using mass units (mg/dL). Cardiovascular risk increases starting at 75 nmol/L. Lp(a) >=125 nmol/L is considered a risk enhancing factor by the [place] [employer]. This test has been modified from the hog counter's instructions. Its performance characteristics were determined by [facility] in a manner consistent with CLIA requirements. This test has not been cleared or approved by the U.S. Food and Drug Administration. Test Performed by: [facility] [address] Sales Record Clerk: Abel Grijalva Ph.D.; CLIA# [id number] Blood 01/31/2025 4:08 PM CDT 01/31/2025 4:31 PM CDT Sharon Daniel MD LAB BLOOD ORDERABLES Final Res ult Performing Organization Address [facility] de Phone Number SARAH [facility] [address] [employer] [place], [place] [id number] [facility] * (ABNORMAL) Protime-INR (01/31/2025 4:08 [...] ORDERABLES Final Res ult Performing Organization Address [facility] Co de Phone Number SARAH [facility] [address] [facility] [place] [address] * CRP (cardiac risk) (01/31/2025 4:08 PM CDT) Pathologist [facility] hsCRP 7.74 mg/L Comment: Interpretive data Adult [...] Re sult - Final Performing Organization Address [facility] de Phone Number [facility] [phone] [place] [address] * Hemoglobin A1c (01/31/2025 4:08 PM CDT) [facility] Hgb A1C 4.7 4.0 - 5.6 % Estimated Average Glucose 88 mg/dL SARAH HUANG Comment: The ADA recommends reporting an estimated Average Glucose (eAG) with all Hemoglobin A1c results using the equation derived from a study of 507 normal and diabetic adults. Minority populations were underrepresented and children were not included. (Diabetes Care 31:2873-6637, 2008). The eAG is not equivalent to a fasting glucose. Blood 01/31/2025 4:08 PM CDT 01/31/2025 4:31 PM CDT Sharon Daniel MD LAB BLOOD ORDERABLES Final Res ult Performing Organization Address [facility] de Phone Number [facility] [address] [employer] [place] [address] * (ABNORMAL) Comprehensive metabolic panel (01/31/2025 4:08 PM CDT) Sodium 139 135 - 145 mmol/L Potassium, pl 4.8 3.3 - 4.9 mmol/L [facility] Chloride 92(L) 97 - 110 mmol/L [facility] CO2 35(H) 22 - 32 mmol/L CERNER [...] Bilirubin, total 1.1 0.1 - 1.2 mg/dL [facility] Protein, pl 7.3 6.5 - 8.5 g/dL [facility] Albumin 3.9 3.5 - 5.0 g/dL [facility] Alk phos 197(H) 40 - 130 Units/L [facility] ALT 18 7 - 55 Units/L [facility] AST 15 10 - 50 Units/L [facility] Comment:Hemolyzed; result ma y be falsely elevated. Blood 01/31/2025 4:0 8 PM CDT 01/31/2025 4:31 PM CDT us Sharon Daniel MD LAB BLOOD ORDERABLES Final Res ult SARAH HUANG [address] [facility]. Department of Laboratories [place] [phone] * [facility] Mobile Cardiac Telemetry Event Monitor (01/31/2025 3:56 PM CDT) Anatomical Region Laterality Modality Electrocardiogra phy 03/01/2025 11:5 9 PM CDT Narrative 03/03/2025 12:02 PM CDT [facility] Cardiac Diagnostic Lab [address] , [address] [place] [address] CARDIAC EVENT MONITOR REPORT Patient Name: ARMEN JIMENEZ W : 1940 (84y 11m) Gender: M Study Date: 03/01/2025 11:59:00 PM Ht(Inch): Wt(Lb): BSA: Tech: [facility] Order Provider: SHARON DANIEL BMI: Ref Provider: SHARON DANIEL PROCEDURES: Event Report: [facility] MOBILE CARDIAC TELEMETRY EVENT MONITOR [[id number]]. Enrollment Period: 2025-01-31 00:00:00 through 2025-03-01 00:00:00. Location: [facility]. INDICATIONS: I10 Essential (primary) hypertension, I35.0 Nonrheumatic [...] The PDF can be found in the Epic Patient chart. Please go to the Cardiology tab, click on the holter or event exam. Scroll to bottom where the ORDER-LEVEL Documents reside and click the blue link to the pdf. Electronically Signed By: Leoncio Soriano MD 03/03/2025 11:22:22 AM CDT Electronically Signed By: Leoncio Soriano MD 03/03/2025 11:22:22 AM CDT Procedure Note Leoncio Soriano MD - 03/03/2025 [facility] Cardiac Diagnostic Lab [address], [address] [place] [address] CARDIAC EVENT MONITOR REPORT Patient Name: ARMEN JIEMNEZ W : 1940 (84y 11m) Gender: M Study Date: 03/01/2025 11:59:00 PM Ht(Inch): Wt(Lb): BSA: Tech: [facility] Order Provider: QUADER, NISHATH BMI: Ref Provider: SHARON DANIEL PROCEDURES: Event Report: [facility] MOBILE CARDIAC TELEMETRY EVENT MONITOR [[id number]]. Enrollment Period: 2025-01-31 00:00:00 through 2025-03-01 00:00:00. Location: [facility]. INDICATIONS: I10 Essential (primary) hypertension, I35.0 Nonrheumatic [...] The PDF can be found in the [facility] Patient chart. Please go to theCardiology tab, [...] PM CDT Narrative 02/02/2025 1:31 PM CDT [facility] Cardiac Diagnostic Lab [address] , [address] [place] [address] Transthoracic Echocardiographic Report Patient Name: ARMEN JIMENEZ W : 1940 (84y 10m) Gender: M Study Date: 01/31/2025 01:00:47 PM Ht(Inch): 74 Wt(Lb): 201.06 BSA: 2.18 Chairman & Co Founder: Malka Larry RDCS, RCCS, ACS Location: [facility] Order Provider: SHARON DANIEL Heart Rate: 46 [...] Procedure Note Sharon Daniel MD - 02/02/2025 [facility] Cardiac Diagnostic Lab [address], [address] [place] [address] Transthoracic Echocardiographic Report Patient Name: ARMEN JIMENEZ W : 1940 (84y 10m) Gender: M Study Date: 01/31/2025 01:00:47 PM Ht(Inch): 74 Wt(Lb): 201.06 BSA: 2.18 Chairman & Co Founder: Malka Larry, DALI, RCCS, ACS Location: [facility] Order Provider:SHARON DANIEL Heart Rate: 46 BMI: [...] cm [ 0.60 - 1.00 ] AV KGM505.1 cm LV Thickness Ratio 1.2 LVOT Peak [...] MV Annulus 2D 3.06 cm MV Decel Ydvl716.15 msec [ 104.00 - 258.00 ] RV [...] cm/m2 [ 1.00 - 2.00 ] MR MQQ946.5 cm Asc Ao Diam 2D 4.17 cm [...] 1:30:51 PM CDT CC: Sharon Daniel MD us Sharon Daniel MD CV ECHO PROCEDURES Final Resul t * US Outside Reference (01/25/2025 11:42 AM CDT) Impressions [facility] - 01/25/2025 11:42 AM CDT These images are for Reference purposes only and have not been reviewed by [facility] Radiology. There will be no report generated by a [facility] Radiologist. Narrative [facility] - 01/25/2025 11:42 AM CDT EXAMINATION: Images For Reference Purposes Only us Hollis Bryan MD IMG US PROCEDURES Final Result [facility] from Last 3 Months Additional Health Concerns Active Problems Noted Date Diagnosed Date Autogenerated Problem 02/01/2025 Autogenerated Problem 03/14/2025 Insurance [facility] MEDICARE [facility] FEDERAL [facility] FEDERAL MEDICARE Advance Directives For more information, please contact: [phone] * Full Code (Latest Code Status on File) Date Activated Date Inactivated Comments 03/09/2025 2:33 PM 03/09/2025 10:08 PM * Full Code Date Activated Date Inactivated Comments 03/18/2019 2:27 PM 03/19/2019 6:43 PM Care Teams Mineral Economist Relationship Specialty Start Date End Date Dickson Land MD [address] [place] [address] PCP - General Family Medicine 01/27/19 Dionicio Carrasquillo MD [address] [facility] [address] [place] [address] Surgeon Surgery 03/05/23 Angel Chow MD [address] [place] [address] Consulting Physician Cardiology 01/24/25
--- OUTSIDE RECORDS SUMMARY | 2025-03-19 09:52 | XMS_ITS | Clinical Summary ---
Author Organization [facility] Address [address] [place] [address] Care Team Providers Care Spout Positioner Name Role Phone Dickson Land MD Primary Care Provider [phone] Source Comments [facility],non-owned Affiliates and Associated Physician Practices is amultiple site organization consisting of ambulatory clinics and hospital sitesin [place], [place], [place] and [place]. This disclosure is being madepursuant to the Care Everywhere program and may not contain all information available regarding this patient. Last updated 18.[facility] [email or web address] Social History Tobacco Use Types Packs/Day Years [...] season) 2024 DEPRESSION SCREENING 08/24/2024 INFLUENZA VACCINE (#1) 2025 9, 05/25/2018, 08/07/2016 HIB VACCINE Aged Out No [...] patient's age to complete this topic Insurance [facility] MEDICARE Care Teams Spout Positioner Relationship Specialty Start Date End Date Dickson Land MD [address] [facility] [address] [place] [address] PCP - General Family Medicine 03/30/24
--- OUTSIDE RECORDS SUMMARY | 2025-03-19 09:53 | XMS_ITS | Encounter Summary ---
Author Organization [facility] Healthcare Address [address] [place] [address] Care Team Providers Care Spot Facer Name Role Phone Dickson Land MD Primary Care Provider Dionicio Carrasquillo MD Unavailable [phone] Angel Chow MD Unavailable [phone] Encounter Details Date Type Department Care Team (Late st Contact Info) Description 07/03/2023 Telephone [facility] [address] [facility] [address] [place] [address] [place] [address] [place] [address] [address] [place] [address] Social History Tobacco Use Types Packs/Day Years [...] Description 04/27/2025 8:00 AM CDT Hospital Encounter [facility] [address] [place] [address] Jean-Paul Bauer MD [address] [facility] [address] [place] [address] Coronary artery disease of [place] artery of [place] heart with stable angina pectoris; Nonrheumatic aortic (valve) stenosis 04/27/2025 8:00 AM CDT - 04/27/2025 11:40 AM CDT Surgery [facility] [place] [address] [place] [address] Jean-Paul Bauer MD [address] [facility] [address] [place] [address] PCI ROSALBA MAJOR CORONARY [id number] [phone] [id number] documented as of this encounter Visit Diagnoses Not on filedocumented in this encounter Care Teams Spot Facer Relationship Specialty Start Date End Date Dickson Land MD [address] [place] [address] PCP - General Family Medicine 01/27/19 Dionicio Carrasquillo MD [address] [facility] [address] [facility] [address] [place] [address] Surgeon Surgery 03/05/23 Angel Chow MD [address] [place] [address] Consulting Physician Cardiology 01/24/25 documented as of this encounter
--- OUTSIDE RECORDS SUMMARY | 2025-03-19 09:55 | XMS_ITS | Clinical Summary ---
Author Organization [facility] Address [address] [place] [address] Care Team Providers Care Varnish Dipper Name Role Phone Dickson Land MD Primary Care Provider [phone] Allergies No known active allergies Medications allopurinol [...] as needed. Indications: Allergic Conjunctivitis 03/05/20 Active [place]-3 Fatty Acids (FISH OIL) 1200 MG Cap [...] Diagnosed Date ESRD (end stage renal disease) ([facility]) 02/26/2022 DELANEY (acute kidney injury) 02/26/2022 Hypotension 02/26/2022 NSTEMI (non-ST elevated myoc ardial infarction) ([facility]) 02/04/2022 Stage 4 chronic kidney disease ([facility]) 07/26/2021 Encounters Date Type Department Care Team Description 03/02/2025 7:40 AM CDT - 03/02/2025 11:59 PM CDT Hospital Encounter [facility] [address] [place] [address] Dickson Land MD Discharge Disposition: Home or Self Care (Routine Discharge) 03/02/2025 Orders Only [facility] [address] [place] [address] Dickson Land MD 03/02/2025 Travel from Last 3 Months Immunizations Immunization Administration Dates Next Due Fluzone [...] Comments Blood Pressure 79/60 08/02/2024 4:40 AM HIM MANAGER Pulse 99 08/02/2024 4:40 AM HIM MANAGER Temperature 36.1 C (97 F) 08/02/2024 4:40 AM HIM MANAGER Respiratory Rate 16 08/02/2024 4:40 AM HIM MANAGER Oxygen Saturation 100% 08/02/2024 4:40 AM HIM MANAGER Inhaled Oxygen Concentration - - Weight 108.1 kg (238 lb 5.1 oz) 08/02/2024 2:48 AM HIM MANAGER Height 188 cm (6' 2) 08/02/2024 2:48 AM HIM MANAGER Body Mass Index 30.6 08/02/2024 2:48 AM HIM MANAGER Plan of Treatment Health Maintenance Due Date [...] this topic Medical Devices Implanted Type Area Site Reliability Engineer Device Identifier Shelf Expiration Date Model / Serial / Lot Arrow Next Step Retrograde Hemodialysis Catheter Implanted:Qty: 1 on 02/11/2022 by Kelton Palm MD at [facility] Catheter Implant Right: Neck [employer] [id number] 08/23/2024 [id number] / / [id number] Description:Right internal j ugular Procedures Procedure Name Priority Date/Time Associated Diagnosis Comments COMPREHENSIVE METABOLIC PANEL Routine 03/02/2025 7:47 AM CDT Cirrhosis (CMS/HCC HHS/HCC) LIPID PANEL Routine 02/04/2022 6:40 AM CDT from Last 3 Months or Most Recently Relevant to Health Maintenance Results * (ABNORMAL) COMPREHENSIVE METABOLIC PANEL (03/02/2025 7:47 AM CDT) GLUCOSE 117(H) 70 - 99 MG/DL 03/02/2025 8:44 AM T [facility] BUN 32(H) 7 - 18 MG/DL 03/02/2025 8:44 AM T [facility] CREATININE S/P/B 5.50() 0.7 - 1.3 MG/DL 03/02/2025 8:44 AM T [facility] Comment: Critical Result(s) Called at: 08:41:56 on 03/02/2025 by: YESI KRISHNAN to and read back by:DR CIERRA HERMOSILLO SODIUM S/P/B 139 136 - 145 MMOL/L 03/02/2025 8:44 AM T [facility] POTASSIUM S/P/B 4.6 3.5 - 5.1 MMOL/L 03/02/2025 8:44 AM T [facility] CHLORIDE S/P/B 98(L) 100 - 108 MMOL/L 03/02/2025 8:44 AM T [facility] CO2 37.0(H) 21 - 32 MMOL/L 03/02/2025 8:44 AM T [facility] CALCIUM S/P/B 9.6 8.5 - 10.1 MG/DL 03/02/2025 8:44 AM T [facility] BILIRUBIN TOTAL S/P/B 1.0 0.2 - 1.2 MG/DL 03/02/2025 8:44 AM T [facility] TOTAL PROTEIN S/P/B 7.1 6.4 - 8.2 G/DL 03/02/2025 8:44 AM T [facility] ALBUMIN S/P/B 3.2(L) 3.4 - 5.0 G/DL 03/02/2025 8:44 AM T [facility] AST 14(L) 15 - 37 U/L 03/02/2025 8:44 AM T [facility] ALT 13(L) 16 - 60 U/L 03/02/2025 8:44 AM [facility] ALKALINE PHOSPHATASE S/P/B 193(H) 50 - 136 U/L 03/02/2025 8:44 AM [facility] ANION GAP 4.0(L) 5 - 15 MMOL/L 03/02/2025 8:44 AM [facility] BUN CREATININE RATIO 5.8(L) 6 - 26 03/02/2025 8:44 AM [facility] A/G RATIO 0.8(L) 1.0 - 2.0 RATIO 03/02/2025 8:44 AM [facility] GFR ESTIMATE 10(L) >90 ML/MIN/1.7 3 M2 03/02/2025 8:44 AM [facility] Comment: NOTE: eGFR is not calculated for patients <18 years of age. This is an estimated GFR calculation using the new CKD EPI creatinine equation without race and so does not require a correction factor for race. This estimated GFR should not be used for calculating drug doses. 03/02/2025 7:47 AM CDT Dickson Land MD LABORATORY Final Result [facility] [address] [place] [address], [place] [phone] * (ABNORMAL) LIPID PANEL (02/04/2022 6:40 AM CDT) CHOLESTEROL 119 <200 MG/DL 02/04/2022 7:24 AM CDT [facility] TRIGLYCERIDES 130 <150 MG/DL 02/04/2022 7:24 AM CDT [facility] HDL 31(L) >40.0 MG/DL 02/04/2022 7:24 AM CDT [facility] LDL (CALCULATED) 62 <100 MG/DL 02/05/20 7:24 AM CDT [facility] NON HDL CHOLESTEROL 88 <130 MG/DL 02/04 7:24 AM CDT [facility] CHOL/HDL RATIO 3.8 0.0 - 4.5 02/04/2022 7:24 AM CDT [facility] VLDL CALCULATION 26 5 - 55 MG/DL 02/04/2022 7:24 AM CDT [facility] LIPID INTERPRETATION 02/04/2022 7:24 AM T [facility] Comment: [facility] CON[facility]ENS[facility] REPORT RECOMMENDATIONS: ADULT CHILD LOW RISK: CHOLESTEROL <200 <170 TRIGLYCERIDE <150 --- HDL >=60 --- LDL <100 <110 BORDERLINE: CHOLESTEROL 200-239 170-199 TRIGLYCERIDE 150-199 --- HDL 40-59 --- LDL 100-159 110-129 HIGH RISK: CHOLESTEROL >=240 >=200 TRIGLYCERIDE >=200 --- HDL <40 --- LDL >=160 >=130 02/04/2022 6:40 AM CDT Maria M Ott DO LABORATORY Final Result [facility] [address] [place] [address], [place] [phone] from Last 3 Months or Most Recently Relevant to Health Maintenance Insurance [facility] Advance Directives Documents on File Type Date Recorded Patient Glove Operator Expl anation Power of Hat And Cap Opener * Full Code (Latest Code Status on File) Date Activated Date Inactivated Comments 03/24/2022 6:02 PM 07/13/2022 6:40 AM * Full Code Date Activated Date Inactivated Comments 02/04/2022 3:44 PM 02/21/2022 5:01 PM * DNR Date Activated Date Inactivated Comments 02/04/2022 2:37 AM 02/04/2022 3:44 PM Care Teams Varnish Dipper Relationship Specialty Start Date End Date Dickson Land MD [address] [place] [address] PCP - General FAMILY PRACTICE 03/25/19
--- OUTSIDE RECORDS SUMMARY | 2025-03-19 09:55 | XMS_ITS | Encounter Summary ---
Author Organization [facility] Healthcare Address [address] [place] [address] Care Team Providers Care Gynecological Assistant Name Role Phone Dickson Land MD Primary Care Provider Dionicio Carrasquillo MD Unavailable [phone] Angel Chow MD Unavailable [phone] Encounter Details Date Type Department Care Team (Late st Contact Info) Description 08/13/2023 Telephone [facility] [address] [facility] [address] [place] [address] Dionicio Carrasquillo MD [address] [place] [address] [address] [place] [address] Social History Tobacco Use Types Packs/Day Years [...] Description 04/27/2025 8:00 AM CDT Hospital Encounter [facility] [address] [place] [address] Jean-Paul Bauer MD [address] [facility] [facility] [facility] [address] [place] [address] Coronary artery disease of [place] artery of [place] heart with stable angina pectoris; Nonrheumatic aortic (valve) stenosis 04/27/2025 8:00 AM CDT - 04/27/2025 11:40 AM CDT Surgery [facility] [address] [place] [address] Jean-Paul Bauer MD [address] [facility] [address] [place] [address] PCI ROSALBA MAJOR CORONARY [id number] - [phone] documented as of this encounter Visit Diagnoses Not on filedocumented in this encounter Care Teams Gynecological Assistant Relationship Specialty Start Date End Date Dickson Land MD [address] [place] [address] PCP - General Family Medicine 01/27/19 Dionicio Carrasquillo MD [address] [facility] [address] [place] [address] Surgeon Surgery 03/05/23 Angel Chow MD [address] [place] [address] Consulting Physician Cardiology 01/24/25 documented as of this encounter
--- OUTSIDE RECORDS SUMMARY | 2025-03-19 09:55 | XMS_ITS | Encounter Summary ---
Author Organization [facility] Healthcare Address [address] [place] [address] Care Team Providers Care Casino Floor Supervisor Name Role Phone Dickson Land MD Primary Care Provider Dionicio Carrasquillo MD Unavailable [phone] Angel Chow MD Unavailable [phone] Encounter Details Date Type Department Care Team (Late st Contact Info) Description 12/08/2023 [facility]phone [facility] [address] [facility] [address] [place] [address] Dionicio Carrasquillo MD [address] [place] [address] [address] [place] [address] Social History Tobacco Use Types Packs/Day Years [...] Description 04/27/2025 8:00 AM CDT Hospital Encounter [facility] [address] [place] [address] Jean-Paul Bauer MD [address] [facility] [address] [place] [address] Coronary artery disease of [place] artery of [place] heart with stable angina pectoris; Nonrheumatic aortic (valve) stenosis 04/27/2025 8:00 AM CDT - 04/27/2025 11:[address] [facility] [address] [place] [address] Jean-Paul Bauer MD [address] [facility] [address] [place] [address] PCI ROSALBA MAJOR CORONARY [id number] - [phone] documented as of this encounter Visit Diagnoses Not on filedocumented in this encounter Care Teams Casino Floor Supervisor Relationship Specialty Start Date End Date Dickson Land MD [address] [place] [address] PCP - General Family Medicine 01/27/19 Dionicio Carrasquillo MD [address] [facility] [address] [place] [address] Surgeon Surgery 03/05/23 Angel Chow MD [address] [place] [address] Consulting Physician Cardiology 01/24/25 documented as of this encounter
[2025-03-19 10:01] LABS: Hematocrit 29.3 % (42.0-52.0); Hemoglobin 9.6 g/dL (14.0-18.0); Immature Granulocyte Percent A 0.4 % (0-0.5); Lymphocytes Absolute Auto 0.75 K/mm3 (0.9-3.2); Mean Corpuscular HGB Conc 32.8 g/dl (32-36); Mean Corpuscular Hemoglobin 35.8 pg (26-34); Mean Corpuscular Volume 109.3 fl (80-100); Nucleated Red Blood Cells Absolute Auto 0.000 K/mm3 (0.0-0.012); Nucleated Red Blood Cells Perc 0.0 % (0.0-0.2); Platelet Count Result 160 k/mm3 (150-375); Red Blood Count 2.68 M/mm3 (4.6-6.20); White Blood Count 5.0 K/mm3 (4.5-10.0)
[2025-03-19 10:21] LABS: INR 1.7; Partial Thromboplastin Time 36.8 Seconds (22.3-36.8); Prothrombin Time 19.3 Seconds (11.1-14.7)
[2025-03-19 10:27] LABS: Alanine Aminotransferase 9 U/L (6-50); Albumin Level 1.7 g/dL (3.5-5.1); Alkaline Phosphatase 87 U/L (38-126); Anion Gap 6 mmol/L (4-12); Aspartate Amino Transferase 10 U/L (17-59); Bilirubin,Total 0.5 mg/dL (0.2-1.3); Blood Urea Nitrogen 26 mg/dL (9-20); Calcium 5.4 mg/dL (8.4-10.2); Carbon Dioxide 19 mmol/L (22-30); Chloride 117 mmol/L (98-107); Estimated CRCL calculation 16 ml/min; Estimated Glomerular Filt Rate 17; Glucose 60 mg/dL (65-110); Magnesium 1.6 mg/dL (1.6-2.3); Potassium 3.0 mmol/L (3.4-5.0); Sodium 142 mmol/L (137-145); Total Protein 3.9 g/dL (6.3-8.2)
[2025-03-19 10:30] LABS: Anisocytosis 1+; Schistocytes None Seen
[2025-03-19] MEDS: ONDANSETRON INJ 4 MG/2 ML VIAL IV PUSH (10:33)
[2025-03-19 10:35] LABS: Troponin I 0.017 ng/mL (0.000-0.034)
[2025-03-19] MEDS: CALCIUM GLUC 1,000 MG/NS 50 ML 1,000 MG/50 ML BAG 100 MG IVPB (10:55)
--- NOTE | 2025-03-19 12:44 | ECG_ITS ---
Test Date: 2025-03-19 13:10:20 Measurements Intervals [place] Rate: 39 P: 0 IN: 0 QRS: -59 QRSD: 208 T: 121 QT: 611 QTc: 495 Interpretive Statements ATRIAL FIBRILLATION WITH SLOW VENTRICULAR RESPONSE LEFT AXIS DEVIATION [QRS AXIS < -30] RIGHT BUNDLE BRANCH BLOCK [120+ ms QRS DURATION, UPRIGHT V1, 40+ ms S IN I/aVL/V4/V5/V6] WITH REPOLARIZATION CHANGES; CANNOT RULE OUT ISCHEMIA PROLONGED QT INTERVAL CRITICAL TEST RESULT Compared to ECG 03/19/2025 09:44:48 NO SIGNIFICANT CHANGES Electronically Signed On 03-19-2025 18:04:18 CDT by Rian Howard M.D.
[2025-03-19] MEDS: MIDODRINE HCL 10 MG TABLET 20 MG PO ×2 (13:36→18:25)
--- NOTE | 2025-03-19 13:44 | P.HP_ITS ---
H&P: HPI History of Present Illness Date/Time: 03/19/25 13:44 Chief Complaint: Syncope vs. fall with dizziness and lightheadedness Narrative: This is a very pleasant elderly male pt with PMH of DM2, HTN, CAD, A-fib, ESRD on HD --, Cirrhosis, CAD s/p DE, CKD, IPN, and s/p Nephrectomy 2/2 RCC, is brought to the ER with complaints of having sustained an episode today at home where he became lightheaded and fell, striking his head. No LOC. EMS was initially concerned about a potential STEMI per EKG, however, ER provider reviewed it with Dr. Howard who advised that there was no STEMI, and the appearance of the RBBB was what was making it look like a STEMI. Pt states he continues to have some pain in his head from the fall, but there was a negative CT Head. Patient is noted to have a bradycardia as well as hypotension. He denies any prodromal symptoms of chest pain shortness of breath prior to his. He denies tripping. Patient was last dialyzed on Thursday and approximately 3 L was taken off. His school treasurer is Dr. Huddleston. His Church Administrator is Dr. Chow here and Dr. Griffith at [place]. patient tells me that he is supposed to obtain another stent in April. At current time he has no acute complaints other than a mild headache. He does not routinely wear oxygen at home however he is requiring 3 L nasal cannula here to maintain oxygen saturations. Patient also does report that he has chronic skin breakdown on his buttocks that has not cleared up with topical diaper rash medications. In the emergency room workup was performed showing EKG that shows atrial fibrillation with a slow ventricular response, left axis deviation and right bundle branch block that is not new with a rate of 48 beats per minute. CBC remarkable for anemia with hemoglobin of 9.6, no leukocytosis, metabolic panel remarkable for a potassium level of 3.0, BUN and creatinine of 26 and 3.54 respectively, calcium 5.4. Coags are unremarkable. Magnesium was 1.6 and troponin is 0.017. Chest x-ray showing cardiomegaly with mild pulmonary vascular congestion, negative CT of head negative CT C-spine. Patient did receive a dose of calcium gluconate in the ER. Nephrology has been consulted as patient will likely need dialysis while here. In addition we will consult Cardiology for co management in the setting of his persistent bradycardia and AFib with now concerning for syncope. ER doctor concern for potential mild dehydration. Patient receiving a limited amount IV fluids and will be admitted to observation awaiting consult. Review of Systems Review of Systems: All systems reviewed & are unremarkable except as noted in HPI and below PMFSH Past Medical History Medical History (Updated 03/19/25 @ 14:12 by INDIRA Sierra) Hypokalemia Dizziness Syncope and collapse Unspecified cirrhosis of liver Cirrhosis of liver with ascites History of heart attack Pleural effusion Retinal detachment Dialysis patient ESRD (end stage renal disease) Renal cell carcinoma s/p nephrectomy Chronic kidney disease, stage 4 (severe) Hy ht/kd 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 CAD in [place] artery CKD (chronic kidney disease) stage 3, GFR 30-59 ml/min HLD (hyperlipidemia) Idiopathic peripheral neuropathy Surgical History Surgical History History of tonsillectomy History of appendectomy History of left nephrectomy Family History Family History Other Cerebrovascular accident Heart disease Social History Social History Smoking status: Never smoker Second hand tobacco smoke exposure: No Alcohol intake: never Substance use: never Substance use type: does not use Do You Feel Safe in your Home?: Yes Lack of Transportation: No Lack of Food: Never True Current Housing: I Have Housing Concerned About Future Housing: No Difficulty Paying Gas/Electric Bills: No Difficulty Paying for Meds: No Currently Unemployed: No Education: Decline to Answer Difficulty w/ Childcare or Family Care: No Living arrangements: alone Occupation/Education: retired Gender identity (if verbalized by the patient): Male Sexual Orientation (if Verbalized by the Patient): Straight or Heterosexual Spiritual care concerns: No Meds Home Medications and Allergies Home Medications ?Medication ?Instructions ?Recorded ?Confirmed ?Type nitroglycerin 0.4 mg sublingual 0.4 mg sublingual Q5M PRN Chest 11/26/20 02/28/25 History tablet Pain apixaban 2.5 mg tablet 2.5 mg PO BID #60 tabs 02/24/24 02/28/25 Rx allopurinol 300 mg tablet 300 mg PO .M,W,F 08/19/24 02/28/25 History atorvastatin 20 mg tablet 40 mg PO DAILY 08/19/24 02/28/25 History gabapentin 300 mg capsule 300 mg PO .M,W,F 08/19/24 02/28/25 History amiodarone 200 mg tablet See Rx Instructions .Route 10/05/24 02/28/25 Rx .COMPLEX #60 tabs lactulose 10 gram/15 mL oral 30 ml PO BID #946 mL 01/05/25 02/28/25 Rx solution midodrine 10 mg tablet 20 mg PO TID 02/15/25 02/28/25 History Allergies Allergy/AdvReac Type Severity Reaction Status Date / Time No Known Allergies Allergy Verified 03/19/25 09:55 Vital Signs Vital Signs - 24 hr 03/19/25 09:41 03/19/25 09:49 03/19/25 09:51 Temperature 98.6 F Pulse Rate 51 L 48 L Respiratory Rate 13 15 Blood Pressure 86/64 L Pulse Oximetry 95 95 Oxygen Delivery Room Air Room Air Oxygen Flow Rate 03/19/25 10:37 03/19/25 10:50 03/19/25 10:50 Temperature Pulse Rate 44 L Respiratory Rate 16 Blood Pressure 91/55 L Pulse Oximetry 98 88 L 90 Oxygen Delivery Room Air Nasal Cannula Oxygen Flow Rate 2 03/19/25 10:50 Temperature Pulse Rate Respiratory Rate Blood Pressure Pulse Oximetry 93 Oxygen Delivery Nasal Cannula Oxygen Flow Rate 3 Exam Const: General: comfortable and no acute distress Other: Elderly male patient pt Lying supine at this time in no acute distress. HENMT: Face/Nose/Sinus: Normal nares present Mouth: Yes moist mucous membranes Other: no signs of traumatic head injury. There is no hematoma. Eyes: General: appearance normal, both eyes and all related structures Sclera: sclerae normal Pupils: Equal, round and reactive pupils present EOM: EOMs intact bilaterally Neck: Neck: supple and no JVD Thyroid: abnormal thyroid Carotids: no bruits Lymphatic: lymphadenopathy not noted Resp: Effort & Inspection: normal respiratory effort Auscultation: clear to auscultation bilaterally Cardio: Rate: bradycardic Rhythm: abnormal rhythm Heart sounds: Murmur heart sound present GI: GI Palp: Yes Soft to palpation, No Tenderness to palpation present (GI) and No Guarding due to palpation present (GI) Auscultation: normal bowel sounds Skin: Lesions: lesion noted ( Right buttock with blister and left buttock with developing stage I) Rashes: no rashes noted Wounds: wounds noted Neuro: Speech: normal speech Motor exam (neuro): Abnormal motor strength present ( generalized weakness) Sensory Exam: normal sensation Extrem: General: normal to inspection, no edema and no pedal edema Psych: Mental Status: mental status grossly normal Affect: normal affect Attitude: not belligerent H&P: Results Labs Labs: Short CBC 03/19/25 Range/Units 09:54 WBC 5.0 (4.5-10.0) K/mm3 Hgb 9.6 L (14.0-18.0) g/dL Hct 29.3 L (42.0-52.0) % Plt Count 160 (150-375) k/mm3 BMP 03/19/25 09:54 Sodium 142 Potassium 3.0 L Chloride 117 H Carbon Dioxide 19 L BUN 26 H D Creatinine 3.54 H Glucose 60 L Calcium 5.4 L* Cardiac Enzymes 03/19/25 Range/Units 09:54 Troponin I 0.017 (0.000-0.034) ng/mL Liver Function 03/19/25 Range/Units 09:54 Total Bilirubin 0.5 (0.2-1.3) mg/dL AST 10 L (17-59) U/L ALT 9 (6-50) U/L Alkaline Phosphatase 87 (38-126) U/L Albumin 1.7 L (3.5-5.1) g/dL Assessment and Plan Assessment and plan (1) Syncope and collapse: Code(s): R55 - Syncope and collapse Status: Acute Assessment and Plan: * Syncope vs. fall. Concern for syncope given sx of dizziness and lightheadedness. * EKG showing A-fib w/Slow Ventricular response. Forty eight ventricular beats per minute. no evidence of block * Telemetry * consult cardiology * Obtain ECHO * Fall Precautions * Orthostatic vitals * Check Thyroid function * Trend Trops * Monitor and trend labs and VS. (2) Dizziness: Code(s): R42 - Dizziness and giddiness Status: Acute Assessment and Plan: * See #1 (3) Hypotension: Code(s): I95.9 - Hypotension, unspecified Status: Chronic Assessment and Plan: * Chronic, but newly symptomatic potentially with the likely syncopal episode today. * continue Midodrine once the home meds are confirmed. * Obtain Orthostatic vs * Gentle IVF given in ER. (4) Atrial fibrillation: Code(s): I48.91 - Unspecified atrial fibrillation Status: Chronic Assessment and Plan: * Telemetry * Continue Eliquis (5) HLD (hyperlipidemia): Code(s): E78.5 - Hyperlipidemia, unspecified Status: Chronic Assessment and Plan: * Continue home meds once they are confirmed. (6) Controlled diabetes mellitus: Code(s): E11.9 - Type 2 diabetes mellitus without complications Status: Chronic Assessment and Plan: * SSI low dose * Hypoglycemic protocol * Glucose checks ac and hs * Check A1C * Renal dialysis diet. * Hold any oral hypoglycemics. (7) ESRD (end stage renal disease): Code(s): N18.6 - End stage renal disease Status: Chronic Assessment and Plan: * Consult Nephrology. * HD is M-W-F * Pt does not currently appear to be fluid overloaded. (8) Hypokalemia: Code(s): E87.6 - Hypokalemia Status: Acute Assessment and Plan: * PO dose of 40 mEq given x1 * Recheck in AM * Trend CMP in AM Quality VTE Prophylaxis VTE prophylaxis: pharmacologic ordered Hospitalist [facility] Advance Care Plan I have confirmed that the patient's Advanced Care Plan is present, code status is documented, or surrogate decision maker is listed in patient medical record.: Yes Medication Reconciliation I have utilized all available resources to obtain, update and review the patients current medications (includes all prescriptions, OTC, herbals, cannabis, and nutritional supplements).: Yes
[2025-03-19] MEDS: ACETAMINOPHEN 500 MG TABLET 1000 MG (13:53)
[2025-03-19 14:13] LABS: Troponin I 0.037 ng/mL (0.000-0.034)
[2025-03-19 15:10] LABS: Hemoglobin A1C 4.7 % (<5.7)
--- NOTE | 2025-03-19 15:46 | P.PNCROSS_ITS ---
Event Note Event Note Event Note: I am called to view the pt's EKG in the setting of having a now increased tropo edwardo. It has increased from 0.017-->0.037. EKG continues to show the same changes, but pts QT interval is becoming prolonged. Pt started on Heparin drip and Cardiology consult is placed.
--- NOTE | 2025-03-19 15:55 | PC.NURSE ---
Pt's surveillance system monitor was alarming, RN to bedside to check on pt. Pt A&Ox4 sitting with HOB elevated, joking with family members at bedside. Pt denies any symptoms. Upon review of cardiac rhythm on monitors, pt has been having fluctuating rate from 36-88 bpm intermittently, irregularly irregular with occasional ectopy more than previous. Pt and family updated on admission bed assignment. This RN noticed there was not a six hour troponin ordered at the time, and called [facility]U Pal regarding elevated troponin, heart rate changes, and plan for six hour troponin. Per PHU Pal, pt okay to transport to admitting room, that cardiology will be consulted. Report called to [facility] SOSA in IMU. New orders for heparin placed in MAR while giving report, will start prior to transport to admission room.
--- NOTE | 2025-03-19 16:11 | ECG_ITS ---
Test Date: 2025-03-19 16:18:57 Measurements Intervals [place] Rate: 43 P: -12 SC: 250 QRS: -71 QRSD: 230 T: 42 QT: 581 QTc: 496 Interpretive Statements ATRIAL FIBRILLATION WITH SLOW VENTRICULAR RATE LEFT AXIS DEVIATION [QRS AXIS < -30] RIGHT BUNDLE BRANCH BLOCK [120+ ms QRS DURATION, UPRIGHT V1, 40+ ms S IN I/aVL/V4/V5/V6] WITH REPOLARIZATION CHANGES; CANNOT RULE OUT ISCHEMIA PROLONGED QT INTERVAL CRITICAL TEST RESULT Compared to ECG 03/19/2025 13:10:20 NO SIGNIFICANT CHANGES Electronically Signed On 03-19-2025 18:08:54 CDT by Rian Howard M.D.
[2025-03-19] MEDS: POTASSIUM CHLORIDE 20 MEQ ER TABLET 40 MEQ PO (16:21)
--- NOTE | 2025-03-19 16:33 | PC.NURSE ---
Repeat labs needed prior to starting heparin drip. Discussed with insulation cupola charger. Labs and six hour troponin drawn and sent. Pt to be transported to admitting room while required labs pending.
[2025-03-19 16:36] LABS: Hematocrit 35.2 % (42.0-52.0); Hemoglobin 11.4 g/dL (14.0-18.0); Immature Granulocyte Percent A 0.3 % (0-0.5); Lymphocytes Absolute Auto 0.57 K/mm3 (0.9-3.2); Mean Corpuscular HGB Conc 32.4 g/dl (32-36); Mean Corpuscular Hemoglobin 35.0 pg (26-34); Mean Corpuscular Volume 108.0 fl (80-100); Nucleated Red Blood Cells Absolute Auto 0.000 K/mm3 (0.0-0.012); Nucleated Red Blood Cells Perc 0.0 % (0.0-0.2); Platelet Count Result 201 k/mm3 (150-375); Red Blood Count 3.26 M/mm3 (4.6-6.20); White Blood Count 7.6 K/mm3 (4.5-10.0)
[2025-03-19 16:47] LABS: INR 1.3; Prothrombin Time 16.2 Seconds (11.1-14.7)
[2025-03-19 16:48] LABS: Partial Thromboplastin Time 36.4 Seconds (22.3-36.8)
[2025-03-19 16:49] LABS: Anisocytosis 1+; Schistocytes None Seen
[2025-03-19] MEDS: HEPARIN SOD/D5W 100 UNITS/ML 25,000 UNITS/250 ML BAG 10 UNITS IV CONT (17:09)
[2025-03-19 17:20] LABS: Troponin I 0.040 ng/mL (0.000-0.034)
--- NOTE | 2025-03-19 17:38 | PM.CNCAR ---
Assessment and Plan Assessment and plan (1) Aortic stenosis: Code(s): I35.0 - Nonrheumatic aortic (valve) stenosis Status: Acute (2) CAD in [place] artery: Code(s): I25.10 - Atherosclerotic heart disease of [place] coronary artery without angina pectoris Status: Acute (3) Atrial fibrillation: Code(s): I48.91 - Unspecified atrial fibrillation Status: Chronic Plan 84-year-old man with severe aortic stenosis, severe mitral regurgitation, severe coronary artery disease, paroxysmal atrial fibrillation (on amiodarone 200 mg p.o. daily and Eliquis 2.5 mg p.o. b.i.d.), and ESRD on hemodialysis (MWF) presents with syncope Syncope -likely progression of his severe aortic stenosis Paroxysmal atrial fibrillation with right bundle branch block -there is electrical disease progression with the new development of right bundle branch block which should be taken into account when proceeding with TAVR -at this time would hold his amiodarone -reasonable to continue heparin drip in lieu of Eliquis for now Severe coronary artery disease -planned pre TAVR PCI of left main, ostial LAD, ostial left circumflex, ostial RCA Severe aortic stenosis -planned post PCI TAVR in outpatient setting at [facility] Severe mitral regurgitation -reassessment after TAVR Given his multiple cardiac comorbidities along with his baseline hypotension and hemodialysis requirements along with progression of cardiac disease, would recommend transfer to tertiary center such as [facility] since most of his planned cardiac workup is at that site. After his clinical presentation has been discussed in the context of his advanced cardiac comorbidities, the medical plan have been discussed along with the risks/benefits/alternatives. At this time the patient and his family would like to discuss amongst themselves prior to making a decision on whether they would like to proceed with transfer to [facility] History of Present Illness History of Present Illness Consult date/time: 03/19/25 17:38 Requesting physician: Veronica Pal APN-C Reason For Visit: Head Injury, Generalized Weakness Narrative: 84-year-old man with severe aortic stenosis, severe mitral regurgitation, severe coronary artery disease, paroxysmal atrial fibrillation (on amiodarone 200 mg p.o. daily and Eliquis 2.5 mg p.o. b.i.d.), and ESRD on hemodialysis (MWF) presents with syncopal event. He was at home and after putting on his shorts he was ambulating and misstep leading to a fall. During the event of his fall, he lost consciousness and could not recall the events. His friend who was in the bathroom stated that he was passed out on the floor. Today was not dialysis day. He has not noted any changes in his cardiopulmonary limitations in the last few weeks. He has not had any decline and physical activity or ability to carry out his baseline physical activities. Review of Systems Cardiovascular: Cardiovascular: Reports as per HPI Respiratory: Respiratory: Reports as per HPI [facility] Past Medical History Medical History (Updated 03/19/25 @ 17:16 by Ramiro Juan MD) Hypokalemia Dizziness Syncope and collapse Unspecified cirrhosis of liver Cirrhosis of liver with ascites History of heart attack Pleural effusion Retinal detachment Dialysis patient ESRD (end stage renal disease) Renal cell carcinoma s/p nephrectomy Chronic kidney disease, stage 4 (severe) Hy ht/kd 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 CAD in [place] artery CKD (chronic kidney disease) stage 3, GFR 30-59 ml/min HLD (hyperlipidemia) Idiopathic peripheral neuropathy Surgical History Surgical History History of tonsillectomy History of appendectomy History of left nephrectomy Family History Family History Other Cerebrovascular accident Heart disease Social History Social History Smoking status: Never smoker Second hand tobacco smoke exposure: No Alcohol intake: never Substance use: never Substance use type: does not use Do You Feel Safe in your Home?: Yes Lack of Transportation: No Lack of Food: Never True Current Housing: I Have Housing Concerned About Future Housing: No Difficulty Paying Gas/Electric Bills: No Difficulty Paying for Meds: No Currently Unemployed: No Education: Decline to Answer Difficulty w/ Childcare or Family Care: No Living arrangements: alone Occupation/Education: retired Gender identity (if verbalized by the patient): Male Sexual Orientation (if Verbalized by the Patient): Straight or Heterosexual Spiritual care concerns: No Meds Home Medications and Allergies Home Medications ?Medication ?Instructions ?Recorded ?Confirmed ?Type nitroglycerin 0.4 mg sublingual 0.4 mg sublingual Q5M PRN Chest 11/26/20 02/28/25 History tablet Pain apixaban 2.5 mg tablet 2.5 mg PO BID #60 tabs 02/24/24 02/28/25 Rx allopurinol 300 mg tablet 300 mg PO .M,W,F 08/19/24 02/28/25 History atorvastatin 20 mg tablet 40 mg PO DAILY 08/19/24 02/28/25 History gabapentin 300 mg capsule 300 mg PO .M,W,F 08/19/24 02/28/25 History amiodarone 200 mg tablet See Rx Instructions .Route 10/05/24 02/28/25 Rx .COMPLEX #60 tabs lactulose 10 gram/15 mL oral 30 ml PO BID #946 mL 01/05/25 02/28/25 Rx solution midodrine 10 mg tablet 20 mg PO TID 02/15/25 02/28/25 History Allergies Allergy/AdvReac Type Severity Reaction Status Date / Time No Known Allergies Allergy Verified 03/19/25 17:42 Vital Signs Vital Signs - 24 hr 03/19/25 09:41 03/19/25 09:49 03/19/25 09:51 Temperature 37.0 C Pulse Rate 51 L 48 L Respiratory Rate 13 15 Blood Pressure 86/64 L Pulse Oximetry 95 95 Oxygen Delivery Room Air Room Air Oxygen Flow Rate 03/19/25 10:37 03/19/25 10:50 03/19/25 10:50 Temperature Pulse Rate 44 L Respiratory Rate 16 Blood Pressure 91/55 L Pulse Oximetry 98 88 L 90 Oxygen Delivery Room Air Nasal Cannula Oxygen Flow Rate 2 03/19/25 10:50 03/19/25 11:00 03/19/25 11:01 Temperature Pulse Rate 46 L 45 L Respiratory Rate 13 16 Blood Pressure 91/53 L Pulse Oximetry 93 100 100 Oxygen Delivery Nasal Cannula Oxygen Flow Rate 3 03/19/25 11:15 03/19/25 11:16 03/19/25 11:30 Temperature Pulse Rate 40 L 41 L 48 L Respiratory Rate Blood Pressure 85/53 L Pulse Oximetry 100 99 100 Oxygen Delivery Oxygen Flow Rate 03/19/25 11:31 03/19/25 11:45 03/19/25 11:46 Temperature Pulse Rate 48 L 38 L 40 L Respiratory Rate Blood Pressure 94/58 L 79/50 L Pulse Oximetry 100 100 100 Oxygen Delivery Oxygen Flow Rate 03/19/25 12:00 03/19/25 12:03 03/19/25 12:15 Temperature Pulse Rate 37 L 46 L 38 L Respiratory Rate Blood Pressure 81/48 L Pulse Oximetry 100 99 100 Oxygen Delivery Oxygen Flow Rate 03/19/25 12:30 03/19/25 12:45 03/19/25 13:00 Temperature Pulse Rate 40 L 39 L 40 L Respiratory Rate Blood Pressure Pulse Oximetry 100 100 100 Oxygen Delivery Oxygen Flow Rate 03/19/25 13:56 03/19/25 14:02 03/19/25 14:31 Temperature Pulse Rate 38 L 39 L 50 L Respiratory Rate Blood Pressure Pulse Oximetry 99 100 Oxygen Delivery Oxygen Flow Rate 03/19/25 14:48 03/19/25 15:00 03/19/25 15:01 Temperature Pulse Rate 63 74 Respiratory Rate Blood Pressure 89/59 L Pulse Oximetry 99 100 99 Oxygen Delivery Oxygen Flow Rate 03/19/25 15:15 03/19/25 15:16 03/19/25 17:22 Temperature 36.4 C L Pulse Rate 88 67 43 L Respiratory Rate 16 16 Blood Pressure 84/64 L 83/52 L Pulse Oximetry 100 100 94 Oxygen Delivery Oxygen Flow Rate 03/19/25 17:33 Temperature Pulse Rate Respiratory Rate Blood Pressure Pulse Oximetry 94 Oxygen Delivery Room Air Oxygen Flow Rate Exam Const: General: comfortable HENMT: Mouth: Yes moist mucous membranes Eyes: EOM: EOMs intact bilaterally Neck: Other: JVD 8 cm Resp: Effort & Inspection: normal respiratory effort Other: Decreased breath sounds in the basilar lung mo[place] Cardio: Rate: bradycardic Rhythm: regular rhythm Other: Systolic murmur in the upper sternal borders with barely audible S2 Neuro: Speech: normal speech Extrem: General: no pedal edema Other: Right arm fistula with palpable thrill Results Labs and Meds 03/19/25 16:30 03/19/25 09:54 Lab results: Cardiac Enzymes 03/19/25 03/19/25 03/19/25 Range/Units 09:54 13:28 16:30 AST 10 L (17-59) U/L Troponin I 0.017 0.037 H* D 0.040 H* (0.000-0.034) ng/mL Coagulation 03/19/25 03/19/25 Range/Units 09:54 16:30 PT 19.3 H 16.2 H (11.1-14.7) Seconds APTT 36.8 36.4 (22.3-36.8) Seconds CBC 03/19/25 03/19/25 Range/Units 09:54 16:30 WBC 5.0 7.6 (4.5-10.0) K/mm3 RBC 2.68 L 3.26 L (4.6-6.20) M/mm3 Hgb 9.6 L 11.4 L (14.0-18.0) g/dL Hct 29.3 L 35.2 L (42.0-52.0) % Plt Count 160 201 (150-375) k/mm3 Lymph # (Auto) 0.75 L 0.57 L (0.9-3.2) K/mm3 [place] # (Auto) 0.6 0.9 H (0.1-0.6) K/mm3 Eos # (Auto) 0.1 0.0 (0-0.3) K/mm3 Baso # (Auto) 0.0 0.1 (0.0-0.1) K/mm3 Comprehensive Metabolic Panel 03/19/25 Range/Units 09:54 Sodium 142 (137-145) mmol/L Potassium 3.0 L (3.4-5.0) mmol/L Chloride 117 H (98-107) mmol/L Carbon Dioxide 19 L (22-30) mmol/L BUN 26 H D (9-20) mg/dL Creatinine 3.54 H (0.7-1.3) mg/dL Glucose 60 L (65-110) mg/dL Calcium 5.4 L* (8.4-10.2) mg/dL AST 10 L (17-59) U/L ALT 9 (6-50) U/L Alkaline Phosphatase 87 (38-126) U/L Total Protein 3.9 L (6.3-8.2) g/dL Albumin 1.7 L (3.5-5.1) g/dL Intake and Output 03/19/25 03/19/25 03/19/25 07:59 15:59 23:59 Intake Total 50 Balance 50 Intake: IV 50 Calcium Gluc 1,000 mg/Ns 50 ml 50 1,000 mg In 50 ml @ 100 mls/hr IVPB ONCE ONE Rx#:[id number] Patient Weight 03/19/25 23:59 Weight 88.9 kg
--- NOTE | 2025-03-19 18:16 | ADMGEN ---
This patient, Russ Jimenez, was admitted to IMU Room 207-01. Patient/family oriented to hospital policies and general routines including ID bracelet, bed and alarms, visiting hours, pain management, procedures, bathroom and other care routines, personal items, smoking policy, room service/diet, and visiting hours. Information on how to activate the Rapid Response Team has been discussed. Patient/Family are encouraged to report perceived risks to care and to ask questions if they do not understand what they are told or what they should do. Patient resting in bed with family at bedside. Patient voiced no complaints or concerns at this time. Head to to assessment completed and charted. Dinner warmed for patient. Call light and personal items in reach. Bed low and locked. Will continue to monitor. Sanya Guzman RN
[2025-03-19] MEDS: ALBUMIN HUMAN 25% 12.5 GM/50ML 50 ML IVPB (20:52)
[2025-03-19] MEDS: PHARMACIST COMMUNICATION ORDER 1 EACH XX (21:01)
[2025-03-19] MEDS: SODIUM CHLORIDE 0.9% IV 500 ML IV CONT (22:01)
[2025-03-19 23:49] LABS: Partial Thromboplastin Time 44.3 Seconds (22.3-36.8)
[2025-03-20] VITALS (32 sets, daily range): BP systolic 77–109; BP diastolic 43–69; PULSE 42–105; RESP 12–18; TEMP 36.4–37.3; O2SAT 94–100
[2025-03-20 06:55] LABS: Alanine Aminotransferase 18 U/L (6-50); Albumin Level 3.9 g/dL (3.5-5.1); Alkaline Phosphatase 164 U/L (38-126); Anion Gap 7 mmol/L (4-12); Aspartate Amino Transferase 17 U/L (17-59); Bilirubin,Total 1.1 mg/dL (0.2-1.3); Blood Urea Nitrogen 57 mg/dL (9-20); Calcium 9.7 mg/dL (8.4-10.2); Carbon Dioxide 33 mmol/L (22-30); Chloride 90 mmol/L (98-107); Estimated CRCL calculation 7 ml/min; Estimated Glomerular Filt Rate 6; Glucose 91 mg/dL (65-110); Magnesium 3.0 mg/dL (1.6-2.3); Potassium 6.9 mmol/L (3.4-5.0); Sodium 130 mmol/L (137-145); Total Protein 7.2 g/dL (6.3-8.2)
[2025-03-20 07:00] LABS: INR 1.3; Prothrombin Time 16.3 Seconds (11.1-14.7)
[2025-03-20 07:01] LABS: Partial Thromboplastin Time 77.2 Seconds (22.3-36.8)
[2025-03-20 08:05] LABS: Hematocrit 36.1 % (42.0-52.0); Hemoglobin 11.7 g/dL (14.0-18.0); Immature Granulocyte Percent A 0.3 % (0-0.5); Lymphocytes Absolute Auto 0.82 K/mm3 (0.9-3.2); Mean Corpuscular HGB Conc 32.4 g/dl (32-36); Mean Corpuscular Hemoglobin 35.2 pg (26-34); Mean Corpuscular Volume 108.7 fl (80-100); Nucleated Red Blood Cells Absolute Auto 0.000 K/mm3 (0.0-0.012); Nucleated Red Blood Cells Perc 0.0 % (0.0-0.2); Platelet Count Result 212 k/mm3 (150-375); Red Blood Count 3.32 M/mm3 (4.6-6.20); White Blood Count 6.4 K/mm3 (4.5-10.0)
[2025-03-20 08:28] LABS: Microcytosis 1+ (NORMAL); Schistocytes None Seen
[2025-03-20] MEDS: SODIUM ZIRCONIUM CYCLOSILICATE 10 GM POWD.PACK PO (08:37)
[2025-03-20] MEDS: ATORVASTATIN 20 MG TABLET PO (08:43)
[2025-03-20] MEDS: DOCUSATE SODIUM 100 MG CAPSULE PO (08:43)
[2025-03-20] MEDS: MIDODRINE HCL 10 MG TABLET 20 MG PO ×2 (08:43→17:50)
[2025-03-20] MEDS: LACTULOSE 20 GM/30 ML UDC PO ×2 (08:49→17:50)
[2025-03-20 08:51] LABS: Chloride 92 mmol/L (98-107); Potassium 6.6 mmol/L (3.4-5.0); Sodium 135 mmol/L (137-145); Thyroid Stimulating Hormone Reflex 1.220 uIU/mL (0.465-4.68)
[2025-03-20 08:52] LABS: Alanine Aminotransferase 19 U/L (6-50); Albumin Level 4.0 g/dL (3.5-5.1); Alkaline Phosphatase 165 U/L (38-126); Anion Gap 11 mmol/L (4-12); Aspartate Amino Transferase 18 U/L (17-59); Bilirubin,Total 1.1 mg/dL (0.2-1.3); Blood Urea Nitrogen 56 mg/dL (9-20); Calcium 10.2 mg/dL (8.4-10.2); Carbon Dioxide 32 mmol/L (22-30); Estimated CRCL calculation 7 ml/min; Estimated Glomerular Filt Rate 6; Glucose 92 mg/dL (65-110); Total Protein 7.5 g/dL (6.3-8.2)
[2025-03-20] MEDS: GABAPENTIN 300 MG CAPSULE PO (09:00)
[2025-03-20 09:26] LABS: Add Urine Microscopic? YES; Appearance Urine Turbid (Clear); Glucose Urine UA Negative (Negative); Leukocyte Esterase Ur 3+ LEU/UL (Negative); Nitrate Urine Negative (Negative); Specific Grav Ur 1.015 (1.001-1.035)
[2025-03-20 09:53] LABS: Hepatitis B Surface Antigen Negative (Negative)
[2025-03-20] MEDS: ALBUMIN HUMAN 25% 12.5 GM/50ML 100 ML 100 GM (10:07)
[2025-03-20 10:10] LABS: Hepatitis B Surface Anti Res Negative
--- NOTE | 2025-03-20 10:40 | P.CONNP_ITS ---
Assessment and Plan Assessment and plan (1) ESRD (end stage renal disease): Code(s): N18.6 - End stage renal disease Status: Chronic Assessment and Plan: * last HD treatment was on Thursday * plan next HD treatment tomorrow * continue dialysis schedule of Thu/Thu/Thursday while hospitalized * follow electrolytes, volume status, and clearance * plan DUF treatment today for further fluid removal (2) Syncope and collapse: Code(s): R55 - Syncope and collapse Status: Acute Assessment and Plan: * as suggested by history * as per Cardiology, likely secondary to progression of aortic stenosis * noted plan for possible transfer to [facility] for further management (as work-up has already been initiated there) * continue supportive therapy (3) Hyperkalemia: Code(s): E87.5 - Hyperkalemia Status: Acute Assessment and Plan: * as noted by AM labs * dialysis today should correct (4) Atrial fibrillation: Code(s): I48.91 - Unspecified atrial fibrillation Status: Chronic Assessment and Plan: * rate controlled * however, RBBB is a new finding * amiodarone on hold * on anticoagulation (5) Elevated troponin: Code(s): R79.89 - Other specified abnormal findings of blood chemistry Status: Acute Assessment and Plan: * as noted * Cardiology recommendations noted * already on anticoagulation (6) Cirrhosis: Qualifiers: Ascites presence: with ascites Hepatic cirrhosis type: unspecified hepatic cirrhosis Qualified Code(s): K74.60 - Unspecified cirrhosis of liver; R18.8 - Other ascites Code(s): K74.60 - Unspecified cirrhosis of liver Status: Acute Assessment and Plan: * known issues * outpatient therapeutic paracentesis ~ 2 - 3 weeks * continue supportive therapy (7) Hypotension: Code(s): I95.9 - Hypotension, unspecified Status: Chronic Assessment and Plan: * chronic issue * on midodrine therapy as an outpatient (8) Diabetes: Code(s): E11.9 - Type 2 diabetes mellitus without complications Status: Chronic Assessment and Plan: * follow blood sugars * glycemic control per hospitalist I will continue follow the patient with you while he remains hospitalized make further recommendations as deemed necessary. Thank you for allowing me to participate in the care of this patient. L History of Present Illness Reason for Consult Consult date: 03/20/25 Reason for consult: end stage renal disease Chief Complaint Chief complaint: Head Injury, Generalized Weakness History of Present Illness Narrative: The patient is an 84-year-old male with an extensive past medical history as outlined below who presented to [facility] Emergency room s/p fall. On the day of admission, while at home, he suddently became lightheaded which resulted in the fall and striking his head. No reported loss of consciousness occurred prior to or after the fall. EMS was called and the was initially concerned about a potential STEMI per EKG. He denied any shortness of breath, chest pain, nausea or vomiting. His only real complaint to EMS was a mild headache after the fall. He was noted to be omewhat bradycardic in association with his chronic hypotension. He subsequently transferred to the ER for further assessment. However, ER provider reviewed it with Dr. Howard who advised that there was no STEMI, and the appearance of the RBBB was what was making it look like a STEMI. Pt states he continues to have some pain in his head from the fall, but there was a negative CT Head. Patient is noted to have a bradycardia as well as hypotension. He denies any prodromal symptoms of chest pain shortness of breath prior to his. He denies tripping. Patient was last dialyzed on Thursday and approximately 3 L was taken off. His mobile engineer is Dr. Huddleston. His Clinical Project Manager is Dr. Chow here and Dr. Griffith at [place]. patient tells me that he is supposed to obtain another stent in April. At current time he has no acute complaints other than a mild headache. He does not routinely wear oxygen at home however he is requiring 3 L nasal cannula here to maintain oxygen saturations. Patient also does report that he has chronic skin breakdown on his buttocks that has not cleared up with topical diaper rash medications. Workup in the ER was significant for a repeat EKG which showed atrial fibrillation with a slow ventricular response, left axis deviation and right bundle branch block that is not new with a rate of 48 beats per minute. His CBC was remarkable for anemia with hemoglobin of 9.6 with no leukocytosis. His metabolic panel was consistent with his known history of ESRD without any critical electrolytes. His Coags were unremarkable and troponin was 0.017. Chest x-ray showing cardiomegaly with mild pulmonary vascular congestion. His CT of head and C-spine were negative were any acute pathology. Given his somewhat complex medical history as noted with the concern for possible syncope, he was admitted to the hospital for further evaluation and therapy. Since admission, he has seen by Cardiology who feel his admission symptoms are likely related to progression of his known severe aortic stenosis (was scheduled for possible TAVR in April 2025). Given his mildly elevated troponins, he was also started on a heparin gtt. Renal consultation was requested due to his end-stage renal disease. The patient is somewhat familiar to me as I take care of his outpatient dialysis needs. The patient normally dialyzes on a Thursday, Thursday, Thursday dialysis schedule at [facility] under my care. From a dialysis perspective, the patient is compliant with his dialysis treatments and his monthly labs are usually reasonable but he does have some issues with chronic hypotension that limits how aggressive we can be in terms of fluid removal with each dialysis treatment. However, this is usually balanced out by his large volume paracenteses that he usually gets every 2 weeks due to chronic ascites. His last dialysis treatment was on Thursday (03/17/25) and he tolerated it reasonably well. Currently, at the time my visit, the patient is undergoing dialysis due to hyperkalemia noted by AM labs as well as to maintain his normal outpatient dialysis schedule (seen on HD at 10:30am). 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 CAD in [place] artery CKD (chronic kidney disease) stage 3, GFR 30-59 ml/min HLD (hyperlipidemia) Idiopathic peripheral neuropathy Surgical History Surgical History History of tonsillectomy History of appendectomy History of left nephrectomy Family History Family History (Updated 03/19/25 @ 17:56 by Dana Guzman RN) Mother Cerebrovascular accident Heart disease Social History Social History Smoking status: Never smoker Second hand tobacco smoke exposure: No Alcohol intake: never Substance use: never Substance use type: does not use Do You Feel Safe in your Home?: Yes Lack of Transportation: YES Lack of Food: Never True Current Housing: I Have Housing Concerned About Future Housing: No Difficulty Paying Gas/Electric Bills: No Difficulty Paying for Meds: No Currently Unemployed: No Education: High School Diploma/GED Difficulty w/ Childcare or Family Care: No Living arrangements: alone Occupation/Education: retired Gender identity (if verbalized by the patient): Male Sexual Orientation (if Verbalized by the Patient): Straight or Heterosexual Spiritual care concerns: Yes Meds Home Medications and Allergies Home Medications ?Medication ?Instructions ?Recorded ?Confirmed ?Type nitroglycerin 0.4 mg sublingual 0.4 mg sublingual Q5M PRN Chest 11/26/20 03/19/25 History tablet Pain apixaban 2.5 mg tablet 2.5 mg PO BID #60 tabs 02/24/24 03/19/25 Rx allopurinol 300 mg tablet 300 mg PO .M,W,F 08/19/24 03/19/25 History atorvastatin 20 mg tablet 20 mg PO DAILY 08/19/24 03/19/25 History gabapentin 300 mg capsule 300 mg PO .M,W,F 08/19/24 03/19/25 History lactulose 10 gram/15 mL oral 30 ml PO BID #946 mL 01/05/25 03/19/25 Rx solution midodrine 10 mg tablet 20 mg PO TID 02/15/25 03/19/25 History docusate sodium 100 mg capsule 100 mg PO EVERY OTHER DAY 03/19/25 03/19/25 History (Colace) Allergies Allergy/AdvReac Type Severity Reaction Status Date / Time No Known Allergies Allergy Verified 03/19/25 17:42 Vital Signs Vital Signs Temp Pulse Resp BP Pulse Ox O2 Del Method FiO2 03/20/25 10:30 49 L 81/59 L 03/20/25 10:15 66 86/58 L 03/20/25 10:00 50 L 03/20/25 09:59 53 L 80/53 L 03/20/25 09:46 98.6 F 42 L 16 77/50 L 100 03/20/25 08:31 62 78/50 L 03/20/25 08:31 62 82/49 L 03/20/25 08:30 60 18 84/52 L 94 03/20/25 08:00 51 L 03/20/25 08:00 Room Air 03/20/25 07:35 97.5 F L 105 H 12 109/69 100 03/20/25 06:00 50 L 03/20/25 04:00 49 L 03/20/25 04:00 98.3 F 50 L 16 96/56 L 100 03/20/25 04:00 96 Room Air 03/20/25 02:00 49 L 03/20/25 00:00 48 L 03/20/25 00:00 95 Room Air 03/19/25 23:58 97.9 F 46 L 18 83/48 L 100 03/19/25 22:45 82/51 L 03/19/25 22:00 48 L 03/19/25 21:11 98.0 F 59 L 18 134/81 100 03/19/25 21:10 98.0 F 48 L 16 84/44 L 96 03/19/25 20:18 99 Room Air 21 03/19/25 20:00 43 L 03/19/25 20:00 96 Room Air 03/19/25 20:00 98.0 F 44 L 14 84/46 L 96 03/19/25 19:42 97.6 F 43 L 20 79/51 L 100 03/19/25 18:00 46 L 03/19/25 17:33 94 Room Air 03/19/25 17:22 97.5 F L 43 L 16 83/52 L 94 03/19/25 15:16 67 100 03/19/25 15:15 88 16 84/64 L 100 Exam 2 Narrative: GENERAL APPEARANCE: elderly but well developed well nourished male in no acute distress HEENT: normocephalic, atraumatic, normal conjunctiva and sclera, nares patient NECK: no lymphadenopathy, thyromegaly, or JVD MOUTH: normal lips, teeth, and gums CARDIOVASCULAR: bradycardic, RRR, normal S1 and S2, no rub RESPIRATORY: coarse and decreased at bases ABDOMEN: soft, + distension; positive bowel sounds present EXTREMITIES: no evidence of cyanosis, clubbing, trace edema NEUROLOGICAL: alert and oriented x 3; CN II - XII intact bilaterally; no focal deficits noted Results Lab Results 03/20/25 07:43 03/20/25 07:43 Lab results: Most recent lab results Calcium 10.2 mg/dL (8.4-10.2) 03/20/25 07:43 Phosphorus 4.5 mg/dL (2.5-4.5) 03/20/25 06:24 Magnesium 3.0 mg/dL (1.6-2.3) H 03/20/25 06:24
--- NOTE | 2025-03-20 11:35 | P.TS_ITS ---
Transfer Discharge Sum: Prov Provider Date of admission: 03/19/25 14:19 Primary care physician: Dickson Land MD Admitting clinician: Fab Hutson MD Consults: 03/19/25 Consult to Physician Routine Comment: Consulting Provider: Rian Howard call out clerk/MD group to consult: Cardiology Reason for consultation: Symptomatic Bradycardia - Syncope vs. fall, elevated troponins Has provider been notified: Yes Consult to Physician Routine Comment: Consulting Provider: Nasim Renae Reason for consultation: End-stage renal disease, dialysis MWF Has provider been notified: Yes DS: Admitting Diagnosis Discharge Date 03/20/25 Admitting Diagnosis Syncope vs. fall with dizziness and lightheadedness DS: Discharge Diagnosis Discharge Diagnosis (1) Syncope and collapse: Code(s): R55 - Syncope and collapse Status: Acute Assessment and Plan: * Syncope vs. fall. Concern for syncope given sx of dizziness and lightheadedness. * EKG showing A-fib w/Slow Ventricular response. Forty eight ventricular beats per minute. no evidence of block * Telemetry * consult cardiology * Obtain ECHO * Fall Precautions * Orthostatic vitals * Check Thyroid function * Trend Trops * Monitor and trend labs and VS. (2) Dizziness: Code(s): R42 - Dizziness and giddiness Status: Acute Assessment and Plan: * See #1 (3) Hypotension: Code(s): I95.9 - Hypotension, unspecified Status: Chronic Assessment and Plan: * Chronic, but newly symptomatic potentially with the likely syncopal episode today. * continue Midodrine once the home meds are confirmed. * Obtain Orthostatic vs * Gentle IVF given in ER. (4) Atrial fibrillation: Code(s): I48.91 - Unspecified atrial fibrillation Status: Chronic Assessment and Plan: * Telemetry * Continue Eliquis (5) HLD (hyperlipidemia): Code(s): E78.5 - Hyperlipidemia, unspecified Status: Chronic Assessment and Plan: * Continue home meds once they are confirmed. (6) Controlled diabetes mellitus: Code(s): E11.9 - Type 2 diabetes mellitus without complications Status: Chronic Assessment and Plan: * SSI low dose * Hypoglycemic protocol * Glucose checks ac and hs * Check A1C * Renal dialysis diet. * Hold any oral hypoglycemics. (7) ESRD (end stage renal disease): Code(s): N18.6 - End stage renal disease Status: Chronic Assessment and Plan: * Consult Nephrology. * HD is M-W-F * Pt does not currently appear to be fluid overloaded. (8) Hypokalemia: Code(s): E87.6 - Hypokalemia Status: Acute Assessment and Plan: * PO dose of 40 mEq given x1 * Recheck in AM * Trend CMP in AM Transfer Discharge Sum: Med Medications Active and Home Medications: Home Medications nitroglycerin 0.4 mg sublingual tablet 0.4 mg sublingual Q5M PRN Chest Pain 11/26/20 [History Confirmed 03/19/25] apixaban 2.5 mg tablet 2.5 mg PO BID #60 tabs 02/24/24 [Rx Confirmed 03/19/25] allopurinol 300 mg tablet 300 mg PO .M,W,F 08/19/24 [History Confirmed 03/19/25] atorvastatin 20 mg tablet 20 mg PO DAILY 08/19/24 [History Confirmed 03/19/25] gabapentin 300 mg capsule 300 mg PO .M,W,F 08/19/24 [History Confirmed 03/19/25] lactulose 10 gram/15 mL oral solution 30 ml PO BID #946 mL 01/05/25 [Rx Confirmed 03/19/25] midodrine 10 mg tablet 20 mg PO TID 02/15/25 [History Confirmed 03/19/25] docusate sodium 100 mg capsule (Colace) 100 mg PO EVERY OTHER DAY 03/19/25 [History Confirmed 03/19/25] Active Medications Acetaminophen (Acetaminophen 500 Mg Tablet) 1,000 mg PO Q6H PRN PRN Reason: Mild Pain (1-3) or Fever Allopurinol (Allopurinol 300 Mg Tablet) 300 mg PO MoWeFr KOREY Apixaban (Apixaban 2.5 Mg Tablet) 2.5 mg PO Q12HR K[place]Y Atorvastatin Calcium (Atorvastatin 20 Mg Tablet) 20 mg PO DAILY [facility] Last Admin: 03/20/25 08:43 Dose: 20 mg Dextrose (Dextrose 50% 25 Gm/50 Ml Syringe) 12.5 gm IV PUSH PRN PRN; Protocol PRN Reason: Hypoglycemia Docusate Sodium (Docusate Sodium 100 Mg Capsule) 100 mg PO Q48H [facility] Last Admin: 03/20/25 08:43 Dose: 100 mg Epoetin Carlitos-epbx (Epoetin Carlitos-Epbx 4,000 Units/Ml Vial) 4,000 units IV PUSH ONCE ONE Stop: 03/20/25 18:01 Gabapentin (Gabapentin 300 Mg Capsule) 300 mg PO MoWeFr KOREY Glucagon (Glucagon For Inj 1 Mg Vial) 1 mg IM PRN PRN; Protocol PRN Reason: Hypoglycemia Glucose (Glucose Oral Gel 15 Gm Of Glucse In 37.5 Gm Tube) 15 gm PO PRN PRN; Protocol PRN Reason: Hypoglycemia Heparin Sodium (Porcine) (Heparin Sodium 5,000 Units/Ml Vial) 4,000 units IV PUSH PRN PRN PRN Reason: aPTT less than 55 seconds Last Admin: 03/20/25 00:12 Dose: 4,000 units Heparin Sodium (Porcine) (Heparin Sodium 5,000 Units/Ml Vial) 3,500 units IV PUSH PRN PRN PRN Reason: aPTT 55 - 70 seconds Dextrose (Dextrose 5% 1,000 Ml) 1,000 mls @ 100 mls/hr IVPB PRN PRN; Protocol PRN Reason: Hypoglycemia Heparin Sodium/Dextrose (Heparin Sodium/D5w 100 Units/Ml) 25,000 units in 250 mls @ 13 mls/hr IV CONT .[id number] KOREY; Protocol Last Titration: 03/20/25 00:19 Dose: 1,300 units/hr, 13 mls/hr Albumin Human (Albutein) 50 mls @ 999 mls/hr IVPB Q10M PRN PRN Reason: HYPOTENSION Stop: 04/18/25 19:16 Albumin Human (Albutein) 100 mls @ 60 mls/hr IVPB ONCE ONE Stop: 03/20/25 12:09 Insulin Aspart (Insulin Aspart (*Bkc) 100 Units/Ml) 2 - 5 units SUB-Q TIDWM KOREY; Protocol Last Admin: 03/20/25 08:42 Dose: Not Given Insulin Aspart (Insulin Aspart (*Bkc) 100 Units/Ml) 1 - 2 units SUB-Q HS KOREY; Protocol Last Admin: 03/19/25 22:10 Dose: Not Given Lactulose (Lactulose 20 Gm/30 Ml Udc) 20 gm PO BID KOREY Last Admin: 03/20/25 08:49 Dose: 20 gm Midodrine (Midodrine Hcl 10 Mg Tablet) 20 mg PO TID KOREY Last Admin: 03/20/25 08:43 Dose: 20 mg Perflutren Lipid Microsphere (Perflutren Lipid Microspheres 1.5 Ml Vial Diluted To 10 Ml Total Volume) 0 ml IV PUSH ONCE PRN; Protocol PRN Reason: adequate visualization Stop: 03/22/25 14:07 Transfer Discharge Sum: Hosp Hospital Course Hospital course: Russ Jimenez is a 84 year old male Spoke with Dr. Krause and Dr Levin 84-year-old man with severe aortic stenosis, severe mitral regurgitation, severe coronary artery disease, paroxysmal atrial fibrillation Given his multiple cardiac comorbidities along with his baseline hypotension and hemodialysis requirements along with progression of cardiac disease, would recommend transfer to tertiary center such as [facility] since most of his planned cardiac workup at the hospital. patient is accepted by the cost recorder, will transfer the [facility]. Patient Condition: Stable Time Spent with Patient Time attestation: Total time spent providing and/or coordinating transfer services: DS: Data Data Completed and Pending Labs on day of discharge: Labs from last 24 hours 03/20/25 03/20/25 03/20/25 07:43 07:13 06:24 WBC 6.4 RBC 3.32 L Hgb 11.7 L Hct 36.1 L MCV 108.7 H MCH 35.2 H MCHC 32.4 RDW 14.6 H Plt Count 212 MPV 9.9 Immature Gran % (Auto) 0.3 Neut % (Auto) 71.3 Lymph % (Auto) 12.8 L [place] % (Auto) 12.8 H Eos % (Auto) 1.7 Baso % (Auto) 1.1 Lymph # (Auto) 0.82 L [place] # (Auto) 0.8 H Eos # (Auto) 0.1 Baso # (Auto) 0.1 Abs Immat Gran (auto) 0.02 Absolute Neuts (auto) 4.6 Absolute Nucleated RBC 0.000 Band Neutrophils % Not Reportable Nucleated RBC % 0.0 Platelet Estimate Adequate Anisocytosis Microcytosis 1+ Schistocytes None seen PT 16.3 H INR 1.3 APTT 77.2 H Sodium 135 L 130 L Potassium 6.6 H* 6.9 H* Chloride 92 L 90 L Carbon Dioxide 32 H 33 H Anion Gap 11 7 BUN 56 H 57 H D Creatinine 8.43 H 8.37 H Estim Creat Clear Calc 7 7 Estimated GFR 6 L 6 L Glucose 92 91 POC Capillary Glucose 90 Hemoglobin A1c Calcium 10.2 9.7 Phosphorus 4.5 Magnesium 3.0 H Total Bilirubin 1.1 1.1 AST 18 17 ALT 19 18 Alkaline Phosphatase 165 H 164 H Troponin I Total Protein 7.5 7.2 Albumin 4.0 3.9 TSH (Reflex) 1.220 Urine Color Urine Appearance Urine pH Ur Specific [place] Urine Protein Urine Glucose (UA) Urine Ketones Ur Blood (Man) Urine Nitrate Urine Bilirubin Urine Urobilinogen Leukocyte Esterase Rfl Urine RBC Urine WBC Ur Squamous Epith Cells Urine Bacteria Urine Casts Hep Bs Antigen Negative Hep Bs Antibody Negative 03/19/25 03/19/25 03/19/25 23:25 20:34 18:27 WBC RBC Hgb Hct MCV MCH MCHC RDW Plt Count MPV Immature Gran % (Auto) Neut % (Auto) Lymph % (Auto) [place] % (Auto) Eos % (Auto) Baso % (Auto) Lymph # (Auto) [place] # (Auto) Eos # (Auto) Baso # (Auto) Abs Immat Gran (auto) Absolute Neuts (auto) Absolute Nucleated RBC Band Neutrophils % Nucleated RBC % Platelet Estimate Anisocytosis Microcytosis Schistocytes PT INR APTT 44.3 H Sodium Potassium Chloride Carbon Dioxide Anion Gap BUN Creatinine Estim Creat Clear Calc Estimated GFR Glucose POC Capillary Glucose 119 H 121 H Hemoglobin A1c Calcium Phosphorus Magnesium Total Bilirubin AST ALT Alkaline Phosphatase Troponin I Total Protein Albumin TSH (Reflex) Urine Color Urine Appearance Urine pH Ur Specific [place] Urine Protein Urine Glucose (UA) Urine Ketones Ur Blood (Man) Urine Nitrate Urine Bilirubin Urine Urobilinogen Leukocyte Esterase Rfl Urine RBC Urine WBC Ur Squamous Epith Cells Urine Bacteria Urine Casts Hep Bs Antigen Hep Bs Antibody 03/19/25 03/19/25 03/19/25 16:30 13:28 11:49 WBC 7.6 RBC 3.26 L Hgb 11.4 L Hct 35.2 L MCV 108.0 H MCH 35.0 H MCHC 32.4 RDW 14.6 H Plt Count 201 MPV 9.5 Immature Gran % (Auto) 0.3 Neut % (Auto) 79.1 H Lymph % (Auto) 7.5 L [place] % (Auto) 11.9 H Eos % (Auto) 0.5 Baso % (Auto) 0.7 Lymph # (Auto) 0.57 L [place] # (Auto) 0.9 H Eos # (Auto) 0.0 Baso # (Auto) 0.1 Abs Immat Gran (auto) 0.02 Absolute Neuts (auto) 6.1 Absolute Nucleated RBC 0.000 Band Neutrophils % Not Reportable Nucleated RBC % 0.0 Platelet Estimate Adequate Anisocytosis 1+ Microcytosis Schistocytes None seen PT 16.2 H INR 1.3 APTT 36.4 Sodium Potassium Chloride Carbon Dioxide Anion Gap BUN Creatinine Estim Creat Clear Calc Estimated GFR Glucose POC Capillary Glucose 113 H Hemoglobin A1c Calcium Phosphorus Magnesium Total Bilirubin AST ALT Alkaline Phosphatase Troponin I 0.040 H* 0.037 H* D Total Protein Albumin TSH (Reflex) Urine Color Urine Appearance Urine pH Ur Specific [place] Urine Protein Urine Glucose (UA) Urine Ketones Ur Blood (Man) Urine Nitrate Urine Bilirubin Urine Urobilinogen Leukocyte Esterase Rfl Urine RBC Urine WBC Ur Squamous Epith Cells Urine Bacteria Urine Casts Hep Bs Antigen Hep Bs Antibody 03/19/25 03/19/25 09:53 09:14 WBC RBC Hgb Hct MCV MCH MCHC RDW Plt Count MPV Immature Gran % (Auto) Neut % (Auto) Lymph % (Auto) [place] % (Auto) Eos % (Auto) Baso % (Auto) Lymph # (Auto) [place] # (Auto) Eos # (Auto) Baso # (Auto) Abs Immat Gran (auto) Absolute Neuts (auto) Absolute Nucleated RBC Band Neutrophils % Nucleated RBC % Platelet Estimate Anisocytosis Microcytosis Schistocytes PT INR APTT Sodium Potassium Chloride Carbon Dioxide Anion Gap BUN Creatinine Estim Creat Clear Calc Estimated GFR Glucose POC Capillary Glucose Hemoglobin A1c 4.7 Calcium Phosphorus Magnesium Total Bilirubin AST ALT Alkaline Phosphatase Troponin I Total Protein Albumin TSH (Reflex) Urine Color Yellow Urine Appearance Turbid H Urine pH >=9.0 H Ur Specific [place] 1.015 Urine Protein 3+ H Urine Glucose (UA) Negative Urine Ketones Negative Ur Blood (Man) 2+ H Urine Nitrate Negative Urine Bilirubin Negative Urine Urobilinogen 0.2 Leukocyte Esterase Rfl 3+ H Urine RBC 21-50 H Urine WBC >100 H Ur Squamous Epith Cells None seen Urine Bacteria 4+ H Urine Casts 3-5 Hep Bs Antigen Hep Bs Antibody
--- NOTE | 2025-03-20 12:07 | P.PNCA_ITS ---
Progress Note: A&P Assessment and Plan (1) Aortic stenosis: Code(s): I35.0 - Nonrheumatic aortic (valve) stenosis Status: Acute (2) CAD in [place] artery: Code(s): I25.10 - Atherosclerotic heart disease of [place] coronary artery without angina pectoris Status: Acute (3) Atrial fibrillation: Code(s): I48.91 - Unspecified atrial fibrillation Status: Chronic Plan 84-year-old man with severe aortic stenosis, severe mitral regurgitation, severe coronary artery disease, paroxysmal atrial fibrillation (on amiodarone 200 mg p.o. daily and Eliquis 2.5 mg p.o. b.i.d.), and ESRD on hemodialysis (MWF) presents with syncope Syncope -likely progression of his severe aortic stenosis Paroxysmal atrial fibrillation with right bundle branch block -there is electrical disease progression with the new development of right bundle branch block which should be taken into account when proceeding with TAVR -at this time would hold his amiodarone -reasonable to continue heparin drip in lieu of Eliquis for now Severe coronary artery disease -planned pre TAVR PCI of left main, ostial LAD, ostial left circumflex, ostial RCA Severe aortic stenosis -planned post PCI TAVR in outpatient setting at [facility] Severe mitral regurgitation -reassessment after TAVR Given his multiple cardiac comorbidities along with his baseline hypotension and hemodialysis requirements along with progression of cardiac disease, would recommend transfer to tertiary center such as [facility] since most of his planned cardiac workup is at that site. After his clinical presentation has been discussed in the context of his advanced cardiac comorbidities, the medical plan have been discussed along with the risks/benefits/alternatives. After discussion with family, patient has agreed to be transferred to [facility]. Hospitalist will initiate transfer. Subjective Date/time seen: 03/20/25 12:07 Interval history: Cardiology follow up visit Date of service 03/20/2025: Feels okay today and does not have any specific complaints. Waiting to go to dialysis. No shortness of breath, chest pain. Review of Systems Cardiovascular: Cardiovascular: Reports as per HPI Respiratory: Respiratory: Reports as per HPI Exam Const: General: comfortable HENMT: Mouth: Yes moist mucous membranes Eyes: EOM: EOMs intact bilaterally Resp: Effort & Inspection: normal respiratory effort Auscultation: diminished lung sounds Cardio: Rate: bradycardic Rhythm: regular rhythm Heart sounds: Murmur heart sound present systolic Other: Systolic murmur in the upper sternal borders with barely audible S2 Neuro: Speech: normal speech Extrem: General: no pedal edema Other: Right arm fistula with palpable thrill Objective Data Vital Signs Vital Signs: Vital Signs - 24 hr 03/19/25 12:15 03/19/25 12:30 03/19/25 12:45 Temperature Pulse Rate 38 L 40 L 39 L Respiratory Rate Blood Pressure Pulse Oximetry 100 100 100 Oxygen Delivery Fraction of Inspired Oxygen 03/19/25 13:00 03/19/25 13:56 03/19/25 14:02 Temperature Pulse Rate 40 L 38 L 39 L Respiratory Rate Blood Pressure Pulse Oximetry 100 99 100 Oxygen Delivery Fraction of Inspired Oxygen 03/19/25 14:31 03/19/25 14:48 03/19/25 15:00 Temperature Pulse Rate 50 L 63 Respiratory Rate Blood Pressure 89/59 L Pulse Oximetry 99 100 Oxygen Delivery Fraction of Inspired Oxygen 03/19/25 15:01 03/19/25 15:15 03/19/25 15:16 Temperature Pulse Rate 74 88 67 Respiratory Rate 16 Blood Pressure 84/64 L Pulse Oximetry 99 100 100 Oxygen Delivery Fraction of Inspired Oxygen 03/19/25 17:22 03/19/25 17:33 03/19/25 18:00 Temperature 36.4 C L Pulse Rate 43 L 46 L Respiratory Rate 16 Blood Pressure 83/52 L Pulse Oximetry 94 94 Oxygen Delivery Room Air Fraction of Inspired Oxygen 03/19/25 19:42 03/19/25 20:00 03/19/25 20:00 Temperature 36.4 C 36.7 C Pulse Rate 43 L 44 L Respiratory Rate 20 14 Blood Pressure 79/51 L 84/46 L Pulse Oximetry 100 96 96 Oxygen Delivery Room Air Fraction of Inspired Oxygen 03/19/25 20:00 03/19/25 20:18 03/19/25 21:10 Temperature 36.7 C Pulse Rate 43 L 48 L Respiratory Rate 16 Blood Pressure 84/44 L Pulse Oximetry 99 96 Oxygen Delivery Room Air Fraction of Inspired Oxygen 21 03/19/25 21:11 03/19/25 22:00 03/19/25 22:45 Temperature 36.7 C Pulse Rate 59 L 48 L Respiratory Rate 18 Blood Pressure 134/81 82/51 L Pulse Oximetry 100 Oxygen Delivery Fraction of Inspired Oxygen 03/19/25 23:58 03/20/25 00:00 03/20/25 00:00 Temperature 36.6 C Pulse Rate 46 L 48 L Respiratory Rate 18 Blood Pressure 83/48 L Pulse Oximetry 100 95 Oxygen Delivery Room Air Fraction of Inspired Oxygen 03/20/25 02:00 03/20/25 04:00 03/20/25 04:00 Temperature 36.8 C Pulse Rate 49 L 50 L Respiratory Rate 16 Blood Pressure 96/56 L Pulse Oximetry 96 100 Oxygen Delivery Room Air Fraction of Inspired Oxygen 03/20/25 04:00 03/20/25 06:00 03/20/25 07:35 Temperature 36.4 C L Pulse Rate 49 L 50 L 105 H Respiratory Rate 12 Blood Pressure 109/69 Pulse Oximetry 100 Oxygen Delivery Fraction of Inspired Oxygen 03/20/25 08:30 03/20/25 08:31 03/20/25 08:31 Temperature Pulse Rate 60 62 62 Respiratory Rate 18 Blood Pressure 84/52 L 82/49 L 78/50 L Pulse Oximetry 94 Oxygen Delivery Fraction of Inspired Oxygen 03/20/25 09:46 03/20/25 09:59 03/20/25 10:15 Temperature 37.0 C Pulse Rate 42 L 53 L 66 Respiratory Rate 16 Blood Pressure 77/50 L 80/53 L 86/58 L Pulse Oximetry 100 Oxygen Delivery Fraction of Inspired Oxygen 03/20/25 10:30 03/20/25 10:45 Temperature Pulse Rate 49 L 49 L Respiratory Rate Blood Pressure 81/59 L 79/47 L Pulse Oximetry Oxygen Delivery Fraction of Inspired Oxygen Intake/Output Intake/Output: Intake & Output 03/17/25 03/18/25 03/19/25 03/20/25 23:59 23:59 23:59 23:59 Intake Total 340 547.7 Balance 340 547.7 Meds/Results Medications: Active Medications Generic Name Dose Route Start Last Admin Trade Name Freq PRN Reason Stop Dose Admin Acetaminophen 1,000 mg 03/19/25 14:06 Acetaminophen 500 Mg Tablet PO Q6H PRN Mild Pain (1-3) or Fever Allopurinol 300 mg 03/20/25 09:00 Allopurinol 300 Mg Tablet PO [facility] Apixaban 2.5 mg 03/19/25 21:00 Apixaban 2.5 Mg Tablet PO Q12HR KOREY Atorvastatin Calcium 20 mg 03/20/25 09:00 03/20/25 08:43 Atorvastatin 20 Mg Tablet PO 20 mg DAILY KOREY Administration Dextrose 12.5 gm 03/19/25 14:11 Dextrose 50% 25 Gm/50 Ml Syringe IV PUSH PRN PRN Hypoglycemia Protocol Docusate Sodium 100 mg 03/20/25 09:00 03/20/25 08:43 Docusate Sodium 100 Mg Capsule PO 100 mg Q48H KOREY Administration Epoetin Carlitos-epbx 4,000 units 03/20/25 18:00 Epoetin Carlitos-Epbx 4,000 Units/Ml Vial IV PUSH 03/20/25 18:01 ONCE ONE Gabapentin 300 mg 03/20/25 09:00 Gabapentin 300 Mg Capsule PO MoWeFr KOREY Glucagon 1 mg 03/19/25 14:11 Glucagon For Inj 1 Mg Vial IM PRN PRN Hypoglycemia Protocol Glucose 15 gm 03/19/25 14:11 Glucose Oral Gel 15 Gm Of Glucse In 37.5 Gm Tube PO PRN PRN Hypoglycemia Protocol Heparin Sodium (Porcine) 4,000 units 03/19/25 15:41 03/20/25 00:12 Heparin Sodium 5,000 Units/Ml Vial IV PUSH 4,000 units PRN PRN Administration aPTT less than 55 seconds Heparin Sodium (Porcine) 3,500 units 03/19/25 15:41 Heparin Sodium 5,000 Units/Ml Vial IV PUSH PRN PRN aPTT 55 - 70 seconds Dextrose 1,000 mls @ 100 mls/hr 03/19/25 14:11 Dextrose 5% 1,000 Ml IVPB PRN PRN Hypoglycemia Protocol Heparin Sodium/Dextrose 25,000 units in 250 mls @ 13 mls/hr 03/19/25 15:45 03/20/25 00:19 Heparin Sodium/D5w 100 Units/Ml IV CONT 1,300 units/hr .[id number] KOREY 13 mls/hr Titration Protocol 1,300 UNITS/HR Albumin Human 50 mls @ 999 mls/hr 03/19/25 19:17 Albutein IVPB 04/18/25 19:16 Q10M PRN HYPOTENSION Albumin Human 100 mls @ 60 mls/hr 03/20/25 10:30 Albutein IVPB 03/20/25 12:09 ONCE ONE Insulin Aspart 2 - 5 units 03/19/25 17:00 03/20/25 08:42 Insulin Aspart (*Bkc) 100 Units/Ml SUB-Q Not Given TIDWM KOREY Protocol Insulin Aspart 1 - 2 units 03/19/25 21:00 03/19/25 22:10 Insulin Aspart (*Bkc) 100 Units/Ml SUB-Q Not Given HS KOREY Protocol Lactulose 20 gm 03/20/25 09:00 03/20/25 08:49 Lactulose 20 Gm/30 Ml Udc PO 20 gm BID KOREY Administration Midodrine 20 mg 03/19/25 13:00 03/20/25 08:43 Midodrine Hcl 10 Mg Tablet PO 20 mg TID KOREY Administration Perflutren Lipid Microsphere 0 ml 03/19/25 14:06 Perflutren Lipid Microspheres 1.5 Ml Vial Diluted To 10 Ml Total Volume IV PUSH 03/22/25 14:07 ONCE PRN adequate visualization Protocol Radiology Results: ITS Impressions Head CT 03/19/25 10:15 Impression: No acute intracranial hemorrhage or suspicious mass effect. Chest X-Ray 03/19/25 10:19 IMPRESSION: Persisting cardiomegaly with mild pulmonary vascular congestion. The lungs are otherwise clear. Cervical Spine CT 03/19/25 10:21 Impression: Severe degenerative disease, without acute fracture. Bilateral pleural effusions, left greater than right. Labs Labs: Laboratory Results - last 24 hr 03/19/25 03/19/25 03/19/25 09:14 09:53 13:28 WBC RBC Hgb Hct MCV MCH MCHC RDW Plt Count MPV Immature Gran % (Auto) Neut % (Auto) Lymph % (Auto) [place] % (Auto) Eos % (Auto) Baso % (Auto) Lymph # (Auto) [place] # (Auto) Eos # (Auto) Baso # (Auto) Abs Immat Gran (auto) Absolute Neuts (auto) Absolute Nucleated RBC Band Neutrophils % Nucleated RBC % Platelet Estimate Anisocytosis Microcytosis Schistocytes PT INR APTT Sodium Potassium Chloride Carbon Dioxide Anion Gap BUN Creatinine Estim Creat Clear Calc Estimated GFR Glucose POC Capillary Glucose Hemoglobin A1c 4.7 Lactic Acid Calcium Phosphorus Magnesium Total Bilirubin AST ALT Alkaline Phosphatase Troponin I 0.037 H* D Total Protein Albumin TSH (Reflex) Urine Color Yellow Urine Appearance Turbid H Urine pH >=9.0 H Ur Specific [place] 1.015 Urine Protein 3+ H Urine Glucose (UA) Negative Urine Ketones Negative Ur Blood (Man) 2+ H Urine Nitrate Negative Urine Bilirubin Negative Urine Urobilinogen 0.2 Leukocyte Esterase Rfl 3+ H Urine RBC 21-50 H Urine WBC >100 H Ur Squamous Epith Cells None seen Urine Bacteria 4+ H Urine Casts 3-5 Hep Bs Antigen Hep Bs Antibody 03/19/25 03/19/25 03/19/25 16:30 18:27 20:34 WBC 7.6 RBC 3.26 L Hgb 11.4 L Hct 35.2 L MCV 108.0 H MCH 35.0 H MCHC 32.4 RDW 14.6 H Plt Count 201 MPV 9.5 Immature Gran % (Auto) 0.3 Neut % (Auto) 79.1 H Lymph % (Auto) 7.5 L [place] % (Auto) 11.9 H Eos % (Auto) 0.5 Baso % (Auto) 0.7 Lymph # (Auto) 0.57 L [place] # (Auto) 0.9 H Eos # (Auto) 0.0 Baso # (Auto) 0.1 Abs Immat Gran (auto) 0.02 Absolute Neuts (auto) 6.1 Absolute Nucleated RBC 0.000 Band Neutrophils % Not Reportable Nucleated RBC % 0.0 Platelet Estimate Adequate Anisocytosis 1+ Microcytosis Schistocytes None seen PT 16.2 H INR 1.3 APTT 36.4 Sodium Potassium Chloride Carbon Dioxide Anion Gap BUN Creatinine Estim Creat Clear Calc Estimated GFR Glucose POC Capillary Glucose 121 H 119 H Hemoglobin A1c Lactic Acid Calcium Phosphorus Magnesium Total Bilirubin AST ALT Alkaline Phosphatase Troponin I 0.040 H* Total Protein Albumin TSH (Reflex) Urine Color Urine Appearance Urine pH Ur Specific [place] Urine Protein Urine Glucose (UA) Urine Ketones Ur Blood (Man) Urine Nitrate Urine Bilirubin Urine Urobilinogen Leukocyte Esterase Rfl Urine RBC Urine WBC Ur Squamous Epith Cells Urine Bacteria Urine Casts Hep Bs Antigen Hep Bs Antibody 03/19/25 03/20/25 03/20/25 23:25 06:24 07:13 WBC RBC Hgb Hct MCV MCH MCHC RDW Plt Count MPV Immature Gran % (Auto) Neut % (Auto) Lymph % (Auto) [place] % (Auto) Eos % (Auto) Baso % (Auto) Lymph # (Auto) [place] # (Auto) Eos # (Auto) Baso # (Auto) Abs Immat Gran (auto) Absolute Neuts (auto) Absolute Nucleated RBC Band Neutrophils % Nucleated RBC % Platelet Estimate Anisocytosis Microcytosis Schistocytes PT 16.3 H INR 1.3 APTT 44.3 H 77.2 H Sodium 130 L Potassium 6.9 H* Chloride 90 L Carbon Dioxide 33 H Anion Gap 7 BUN 57 H D Creatinine 8.37 H Estim Creat Clear Calc 7 Estimated GFR 6 L Glucose 91 POC Capillary Glucose 90 Hemoglobin A1c Lactic Acid Calcium 9.7 Phosphorus 4.5 Magnesium 3.0 H Total Bilirubin 1.1 AST 17 ALT 18 Alkaline Phosphatase 164 H Troponin I Total Protein 7.2 Albumin 3.9 TSH (Reflex) Urine Color Urine Appearance Urine pH Ur Specific [place] Urine Protein Urine Glucose (UA) Urine Ketones Ur Blood (Man) Urine Nitrate Urine Bilirubin Urine Urobilinogen Leukocyte Esterase Rfl Urine RBC Urine WBC Ur Squamous Epith Cells Urine Bacteria Urine Casts Hep Bs Antigen Hep Bs Antibody 03/20/25 03/20/25 07:43 11:47 WBC 6.4 RBC 3.32 L Hgb 11.7 L Hct 36.1 L MCV 108.7 H MCH 35.2 H MCHC 32.4 RDW 14.6 H Plt Count 212 MPV 9.9 Immature Gran % (Auto) 0.3 Neut % (Auto) 71.3 Lymph % (Auto) 12.8 L [place] % (Auto) 12.8 H Eos % (Auto) 1.7 Baso % (Auto) 1.1 Lymph # (Auto) 0.82 L [place] # (Auto) 0.8 H Eos # (Auto) 0.1 Baso # (Auto) 0.1 Abs Immat Gran (auto) 0.02 Absolute Neuts (auto) 4.6 Absolute Nucleated RBC 0.000 Band Neutrophils % Not Reportable Nucleated RBC % 0.0 Platelet Estimate Adequate Anisocytosis Microcytosis 1+ Schistocytes None seen PT INR APTT Sodium 135 L Potassium 6.6 H* Chloride 92 L Carbon Dioxide 32 H Anion Gap 11 BUN 56 H Creatinine 8.43 H Estim Creat Clear Calc 7 Estimated GFR 6 L Glucose 92 POC Capillary Glucose Hemoglobin A1c Lactic Acid < 0.5 L Calcium 10.2 Phosphorus Magnesium Total Bilirubin 1.1 AST 18 ALT 19 Alkaline Phosphatase 165 H Troponin I Total Protein 7.5 Albumin 4.0 TSH (Reflex) 1.220 Urine Color Urine Appearance Urine pH Ur Specific [place] Urine Protein Urine Glucose (UA) Urine Ketones Ur Blood (Man) Urine Nitrate Urine Bilirubin Urine Urobilinogen Leukocyte Esterase Rfl Urine RBC Urine WBC Ur Squamous Epith Cells Urine Bacteria Urine Casts Hep Bs Antigen Negative Hep Bs Antibody Negative Quality VTE Prophylaxis VTE prophylaxis: pharmacologic ordered
[2025-03-20] MEDS: EPOETIN ALFA-EPBX 4,000 UNITS/ML VIAL 4000 UNITS IV PUSH (13:16)
--- NOTE | 2025-03-20 15:17 | PC.NURSE ---
Pt accepted to [facility] room [id number]. Report given, awaiting ambulance
[2025-03-20 16:34] LABS: Partial Thromboplastin Time 44.8 Seconds (22.3-36.8)
[2025-03-20] MEDS: HEPARIN SOD/D5W 100 UNITS/ML 25,000 UNITS/250 ML BAG 16 UNITS IV CONT (17:54)
== END 2025-03-20 19:00 | disposition short-term general hospital (02) | DRG 312 ==
LOC: ANHED 09:50 → ANH3MEDSUR 14:05 → ANHIMU 15:12
PROVIDERS: Internal Medicine; Internal Medicine Nephrology; Nurse Practitioner Adult Health; Admitting Provider Internal Medicine; Emergency Provider Emergency Medicine; PCP Family Medicine; Visit Provider Family Medicine
DX: R55 Syncope and collapse (principal); N18.6 End stage renal disease; I12.0 Hypertensive chronic kidney disease with stage 5 chronic kidney disease or end stage renal disease; R18.8 Other ascites; I35.0 Nonrheumatic aortic (valve) stenosis; E11.22 Type 2 diabetes mellitus with diabetic chronic kidney disease; I95.9 Hypotension, unspecified; E78.5 Hyperlipidemia, unspecified; E87.5 Hyperkalemia; I25.10 Atherosclerotic heart disease of native coronary artery without angina pectoris; E11.42 Type 2 diabetes mellitus with diabetic polyneuropathy; K74.60 Unspecified cirrhosis of liver; I34.0 Nonrheumatic mitral (valve) insufficiency; E87.6 Hypokalemia; I48.0 Paroxysmal atrial fibrillation; I45.10 Unspecified right bundle-branch block; Z99.2 Dependence on renal dialysis; Z85.528 Personal history of other malignant neoplasm of kidney; I25.2 Old myocardial infarction; Z90.5 Acquired absence of kidney; Z90.49 Acquired absence of other specified parts of digestive tract
CPT/HCPCS: 36415; 70450; 71045; 72125; 80053; 81001; 82948; 83036; 83605; 83735; 84100; 84443; 84484; 85025; 85610; 85730; 86706; 87086; 87340; 93005; 96365; 96375; 99285; A9270; G0257; G0378; J0612; J1644; J2405; J7030; J7040; P9047; Q5105